=== PATIENT | male | born 1935 | race Caucasian/White ===

== ENCOUNTER → 2016-10-19 | Outpatient (CLI) | payer BC ==
[~2016-10-19] MED LIST: ACET-1138 PO; AMIO200T4 PO; AMIO200T7 PO; ASPI81TA28 PO; ATEN-173 PO; CEPH500C PO; CIPR1TAB11 PO; CMD5 PO; CYAN1LOZ2 PO; DILT-204 PO; DILT120C68 PO; DOXY100C76 PO; FERR1TAB13 PO; FLM4 PO; LEVO1TAB34 PO; LSN5 PO; LVQ250 PO; MAGN400T6 PO; METF-384 PO; MRLP17 PO; NIAC500T11 PO; NVLGIPEN SC; ROSU20TA PO; ROSU5TAB PO; RXC5 PO; SNK PO; VTMD1000 PO; WARF2.5T8 PO
[2016-10-19 12:35] LABS: THYROID STIMULATING HORMONE 4.63 uIu/ml (0.300-4.500)
== END | disposition home or self-care (01) ==
LOC: C.LAB 10:26
PROVIDERS: ATTEND Internal Medicine Cardiovascular Disease
DX: I48.92 Unspecified atrial flutter (principal); Z79.899 Other long term (current) drug therapy

== ENCOUNTER → 2016-11-26 | Outpatient (CLI) | payer BC ==
[~2016-11-26] MED LIST changes: -CEPH500C PO; +CRDCD240 PO; -DILT-204 PO; -LEVO1TAB34 PO
[2016-11-26 12:46] LABS: BASO % 0.6 %; BASO ABS # 0.04 K/uL (0-0.2); COMPLETE YES; EOS % 1.7 %; HEMATOCRIT 39.5 % (42-52); IG% 0.1 %; LYMPH % 23.6 %; LYMPH ABS # 1.64 K/uL (1.2-3.4); MEAN CELL VOLUME 85.1 fL (80-100); MEAN CORPUSCULAR HEMOGLOBIN 27.4 pg (25-34); MEAN CORPUSCULAR HGB CONC 32.2 g/dl (32-36); MEAN PLATELET VOLUME 10.7 fL (7.4-10.4); MONO % 9.3 %; NEUT % 64.7 %; PLATELET COUNT 242 K/uL (130-400); RED BLOOD COUNT 4.64 M/uL (4.7-6.1); WHITE BLOOD COUNT 6.96 K/uL (4.8-10.8)
[2016-11-26 12:58] LABS: ALT/SGPT 47 U/L (12-78); AST/SGOT 36 U/L (15-37); BLOOD UREA NITROGEN 16 mg/dl (7-18); CARBON DIOXIDE 25 mmol/L (21-32); CHLORIDE 105 mmol/L (98-107); CREATININE 0.98 mg/dl (0.60-1.40); GLUCOSE 105 mg/dl (70-99); POTASSIUM 4.4 mmol/L (3.5-5.1); SODIUM 140 mmol/L (136-145)
[2016-11-26 13:02] LABS: ALKALINE PHOSPHATASE 71 U/L (45-117); FERRITIN 17.4 ng/ml (8.0-388.0)
[2016-11-26 13:40] LABS: ESTIMATED AVERAGE GLUCOSE 148 mg/dl; HA1C FLAG Normal (Normal)
== END | disposition home or self-care (01) ==
LOC: C.LABPBG 10:28
PROVIDERS: ATTEND Nurse Practitioner Family
DX: I25.10 Atherosclerotic heart disease of native coronary artery without angina pectoris (principal); E78.5 Hyperlipidemia, unspecified; I48.92 Unspecified atrial flutter; R00.1 Bradycardia, unspecified; Z79.01 Long term (current) use of anticoagulants; Z79.899 Other long term (current) drug therapy; E11.9 Type 2 diabetes mellitus without complications; D64.9 Anemia, unspecified

== ENCOUNTER → 2016-12-14 | Outpatient (CLI) | payer BC ==
--- NOTE | 2016-12-14 14:55 | DIAGNOSTIC IMAGING REPORT ---
CT SCAN OF THE BRAIN WITHOUT IV CONTRAST CLINICAL HISTORY: Head injury. COMPARISON STUDY: No priors. TECHNIQUE: Unenhanced axial CT scan of the brain is performed from the vertex to the skull base. CT DOSE: 614.27 mGy.cm FINDINGS: Brain parenchyma: There are age-related involutional changes noting moderate confluent subcortical and periventricular microangiopathic change. There is no hemorrhage, mass effect, or evidence of acute territorial ischemia by CT criteria. Cardenas-white matter is preserved. No extra-axial fluid collection is seen. Ventricles, sulci, cisterns: Prominent secondary to involutional change. Intracranial vasculature: There is atherosclerotic calcification of the cavernous carotid and vertebral arteries. Calvarium: The skeletal structures are osteopenic. No depressed calvarial fracture is seen. Sinuses and mastoids: The visualized paranasal sinuses are clear. The mastoid air cells are well pneumatized. Orbits: The bony orbits are grossly intact. IMPRESSION: Senescent changes as above with no hemorrhage, mass effect, or evidence of acute territorial ischemia by CT criteria. Electronically signed by: Jigar Acuña M.D. 12/14/2016 2:54 PM Dictated Date/Time: 12/14/2016 2:52 PM
== END | disposition home or self-care (01) ==
LOC: C.CTS 14:40
PROVIDERS: ATTEND Nurse Practitioner Family
DX: S09.90XA Unspecified injury of head, initial encounter (principal); X58.XXXA Exposure to other specified factors, initial encounter; Z79.01 Long term (current) use of anticoagulants

== ENCOUNTER → 2017-02-21 | Outpatient (CLI) | payer BC ==
[~2017-02-21] MED LIST changes: +CEPH500C PO; +LEVO1TAB34 PO
--- NOTE | 2017-02-21 13:25 | DIAGNOSTIC IMAGING REPORT ---
RIGHT HIP UNILATERAL 2 VIEWS CLINICAL HISTORY: Right hip pain. COMPARISON: CT of the abdomen and pelvis May 31, 2016. FINDINGS: Near complete loss of the right hip joint space is noted. There is osteophytosis and sclerosis. Extensive vascular calcification is present. There is no fracture or suspicious lesion. IMPRESSION: 1. Marked osteoarthritis of the right hip. 2. No acute fracture. Electronically signed by: Sam Crowley M.D. 02/21/2017 1:23 PM Dictated Date/Time: 02/21/2017 1:22 PM
== END | disposition home or self-care (01) ==
LOC: C.RAD 13:10
PROVIDERS: ATTEND Nurse Practitioner Family
DX: M25.551 Pain in right hip (principal)

== ENCOUNTER 2017-03-17 05:59 | Inpatient (IN) | payer BC, OTHER ==
[2017-03-04 10:41] VITALS: BMI 25.0
--- NOTE | 2017-03-04 11:22 | PAT Medication Instructions ---
Service Date March 04, 2017. Current Home Medication List Amiodarone Hcl (Pacerone), 200 MG PO QAM Aspirin (Aspirin Ec), 81 MG PO QAM Atenolol (Tenormin), 12.5 MG PO QAM Cyanocobalamin (Vitamin B 12), 1,000 MCG PO QAM Diltiazem Hcl Ext Rel (Tiazac), 120 MG PO QPM Magnesium Oxide (Mag-Ox), 400 MG PO QPM Metformin Hcl (Glucophage), 1,000 MG PO BID Niacin (Niacin), 500 MG PO BID Rosuvastatin Calcium (Crestor), 10 MG PO QPM Warfarin Sod (Jantoven), 2.5 MG PO QPM Medication Instructions For Your Scheduled Surgery Warfarin Sod (Jantoven), 2.5 MG PO QPM (patient will check with building construction professor for instructions) - Hold the following medications 48 hours prior to surgery: Metformin Hcl (Glucophage), 1,000 MG PO BID - Hold the following medications day prior to and morning of surgery: Niacin (Niacin), 500 MG PO BID - Hold the following medications the morning of surgery: Cyanocobalamin (Vitamin B 12), 1,000 MCG PO QAM - Take the following medications the morning of surgery with a sip of water: Aspirin (Aspirin Ec), 81 MG PO QAM Atenolol (Tenormin), 12.5 MG PO QAM Amiodarone Hcl (Pacerone), 200 MG PO QAM - Take the following medications as scheduled the night before surgery: Rosuvastatin Calcium (Crestor), 10 MG PO QPM Magnesium Oxide (Mag-Ox), 400 MG PO QPM Diltiazem Hcl Ext Rel (Tiazac), 120 MG PO QPM If you have any questions please call us at [phone] or [phone] ( Martha) or [phone]
[2017-03-04 11:59] LABS: HEMATOCRIT 38.5 % (42-52); MEAN CELL VOLUME 86.5 fL (80-100); MEAN CORPUSCULAR HEMOGLOBIN 27.6 pg (25-34); MEAN CORPUSCULAR HGB CONC 31.9 g/dl (32-36); MEAN PLATELET VOLUME 10.1 fL (7.4-10.4); PLATELET COUNT 222 K/uL (130-400); RED BLOOD COUNT 4.45 M/uL (4.7-6.1); WHITE BLOOD COUNT 7.82 K/uL (4.8-10.8)
[2017-03-04 12:08] LABS: INR 1.9 (0.9-1.1); PARTIAL THROMBOPLASTIN RATIO 1.3; PROTHROMBIN TIME (PATIENT) 21.4 SECONDS (9.0-12.0)
--- NOTE | 2017-03-04 12:10 | DIAGNOSTIC IMAGING REPORT ---
CHEST PREADMISSION(PA/LAT) CLINICAL HISTORY: PAT preoperative evaluation COMPARISON STUDY: 06/20/2016 FINDINGS: Prior median sternotomy. No evidence for cardiac enlargement. Diaphragms smooth. Lungs are clear. IMPRESSION: No acute process. Electronically signed by: Rizwan Terrazas M.D. 03/04/2017 12:09 PM Dictated Date/Time: 03/04/2017 12:09 PM
[2017-03-04 12:19] LABS: BASO % 0.4 %; BASO ABS # 0.03 K/uL (0-0.2); COMPLETE YES; IG% 0.1 %; LYMPH % 20.3 %; LYMPH ABS # 1.59 K/uL (1.2-3.4); MONO % 7.7 %; NEUT % 70.5 %
[2017-03-04 12:31] LABS: URINE APPEARANCE CLEAR (CLEAR); URINE BILIRUBIN NEG (NEG); URINE COLOR YELLOW; URINE NITRITE NEG (NEG); URINE SPECIFIC GRAVITY 1.026 (1.000-1.030); UROBILINOGEN NEG (NEG)
[2017-03-04 12:39] LABS: ESTIMATED AVERAGE GLUCOSE 146 mg/dl; HA1C FLAG Normal (Normal)
[2017-03-04 12:45] LABS: MANUAL MICROSCOPIC REQUIRED? NO; REVIEW REQ? NO
[2017-03-04 13:09] LABS: BUN/CREATININE RATIO 25.6 (10-20); CALCIUM 8.9 mg/dl (8.5-10.1); CREATININE 0.88 mg/dl (0.60-1.40); POTASSIUM 4.4 mmol/L (3.5-5.1)
--- NOTE | 2017-03-16 16:16 | HISTORY & PHYSICAL EXAMINATION ---
DATE OF ADMISSION: 03/17/2017 CHIEF COMPLAINT: Right hip pain. HISTORY OF PRESENT ILLNESS: The patient is an 81-year-old gentleman with known osteoarthritis about his right hip. He had a previous successful left total hip arthroplasty, which has done well. He has ongoing pain and disability with his right hip. He has pain with prolonged weightbearing and standing activities. He has difficulty with any kneeling, bending, or squatting activities. Due to warfarin use, he is unable to take NSAIDs. He now desires to proceed with right total hip arthroplasty. PAST MEDICAL HISTORY: Coronary artery disease status post CABG x3, atrial flutter status post cardioversion, hyperlipidemia, type 2 diabetes, peripheral artery disease, and hypertension. PAST SURGICAL HISTORY: Left hip replacement as above, coronary artery bypass graft, and neck surgery. MEDICATIONS: Amiodarone HCL 200 mg daily, aspirin 81 mg daily, atenolol 25 mg half tablet daily, magnesium oxide 400 mg daily, metformin HCL 1000 mg twice daily with meals, niacin 500 mg 2 tablets daily, rosuvastatin calcium 20 mg half tablet daily, vitamin B12 at 1000 mcg daily, and warfarin sodium 5 mg daily or as directed. ALLERGIES: INCLUDE PENICILLIN, SULFA AND SHELLFISH. SOCIAL HISTORY AND REVIEW OF SYSTEMS: Noncontributory. PHYSICAL EXAMINATION: GENERAL: Well-nourished and well-developed elderly male, who appears his stated age. HEENT: Normocephalic and atraumatic. Extraocular movements intact. Oropharynx is pink and moist. NECK: Supple without adenopathy. LUNGS: Clear to auscultation bilaterally. HEART: Regular rate and rhythm. ABDOMEN: Soft, nontender, and nondistended. EXTREMITIES: The upper extremities are within normal limits. The right hip demonstrates limited range of motion. There is limitation of active and passive internal/external rotation with pain at end range. X-RAYS: X-rays were reviewed. He has a well-fixed and well-aligned total hip on the left. The right hip shows moderate to severe osteoarthritis with near complete loss of the joint space. There is evidence of osteophytes about the femoral head and acetabulum. ASSESSMENT: Right hip degenerative joint disease. PLAN: Risks versus benefits were discussed. Consent was obtained. The patient's primary care physician is Munir Andino. We will proceed with right total hip arthroplasty upon preoperative workup and medical clearance.
[~2017-03-17] VITALS: Ht 170.2 cm; Wt 73.7 kg
[2017-03-17] VITALS (12 sets, daily range): BP systolic 118–181; BP diastolic 62–78; PULSE 45–60; TEMP 36.4–36.8; O2SAT 95–100; Ht 170.2 cm; Wt 73.7 kg
[~2017-03-17 05:59] MED LIST changes: -ACET-1138 PO; -AMIO200T4 PO; -CEPH500C PO; -CIPR1TAB11 PO; -CMD5 PO; -CRDCD240 PO; -DOXY100C76 PO; -FERR1TAB13 PO; -FLM4 PO; -LEVO1TAB34 PO; -LSN5 PO; -LVQ250 PO; -MRLP17 PO; -NVLGIPEN SC; -ROSU5TAB PO; -RXC5 PO; -SNK PO; -VTMD1000 PO
[2017-03-17] MEDS ORDERED: LACTATED RINGER'S 1000ML IV SCH (06:00)
[2017-03-17] MEDS ORDERED: VANCOMYCIN INJ 1,150 MG in SODIUM CHLORIDE 0.9% 250ML 250 ML IV SCH (06:00)
[2017-03-17] MEDS ORDERED: FAMOTIDINE 20 MG TAB PO SCH (06:00)
[2017-03-17] MEDS ORDERED: GABAPENTIN 300 MG CAP PO SCH (06:00)
[2017-03-17] MEDS ORDERED: METOCLOPRAMIDE HCL 10 MG TAB PO SCH (06:00)
[2017-03-17] MEDS ORDERED: ROPIVACAINE 5MG/ML 30 ML 150 MG, BUPIVACAINE/EPINEPHR 0.5% MPF 30 ML, KETOROLAC TROMETH... INFIL SCH ×7 (06:00)
[2017-03-17] MEDS ORDERED: TRANEXAMIC ACID INJ 1,000 MG in SODIUM CHLORIDE 0.9% 100ML 100 ML IV SCH (06:00)
[2017-03-17] MEDS ORDERED: DEXAMETHASONE 4 MG TAB PO SCH (06:00)
[2017-03-17] MEDS ORDERED: LACTATED RINGER'S 1000ML 1,000 ML IV SCH (06:00)
[2017-03-17] MEDS ORDERED: ACETAMINOPHEN 500 MG TAB PO SCH (06:00)
[2017-03-17] MEDS ORDERED: LACTATED RINGER'S 1000ML 500 ML IV ONE (06:00)
[2017-03-17] MEDS ORDERED: BUPIVACAINE 0.5 % 5 MG/1 ML PF 10ML VIAL ONE (06:53)
[2017-03-17] MEDS ORDERED: FENTANYL CITRATE INJ 50 MCG/1 ML 2 ML VIAL ONE (07:19)
[2017-03-17] MEDS ORDERED: MIDAZOLAM HCL 1 MG/ML 2ML VIAL ONE (07:19)
[2017-03-17] MEDS ORDERED: BACITRACIN 50000 UNIT VIAL ONE (07:43)
[2017-03-17] MEDS ORDERED: POVIDONE-IODINE OP SOLN 30 ML BTL ONE (07:43)
[2017-03-17] MEDS ORDERED: ORTHO JOINT ANESTHETIC ONE (07:43)
--- NOTE | 2017-03-17 07:45 | History & Physical Bridge Note ---
H&P Re-Evaluation Bridge Note: I have examined the patient, reviewed the History & Physical and in the interval since the performance of the History & Physical I have noted the following changes of clinical significance: No changes noted
[2017-03-17 07:47] LABS: INR 1.2 (0.9-1.1); PARTIAL THROMBOPLASTIN RATIO 1.1; PROTHROMBIN TIME (PATIENT) 12.7 SECONDS (9.0-12.0)
[2017-03-17] MEDS ORDERED: KETOROLAC TROMETHAMINE 15 MG/ML VIAL IV. PRN (08:15)
[2017-03-17] MEDS ORDERED: ONDANSETRON INJ 2 MG/ML 2 ML VIAL IV PRN ×2 (08:15→09:30)
[2017-03-17] MEDS ORDERED: ATROPINE SULFATE 0.1 MG/ML 5ML SYR IV PRN (08:15)
[2017-03-17] MEDS ORDERED: EpHEDrine SULFATE INJ 50 MG/ML AMP IV PRN (08:15)
[2017-03-17] MEDS ORDERED: PHENYLEPHRINE 100MCG/ML 5ML SYR IV PRN (08:15)
[2017-03-17] MEDS ORDERED: HYDROmorphone INJ 2 MG/ML SYR/VIAL IV PRN (08:15)
[2017-03-17] MEDS ORDERED: EpHEDrine SULFATE 50MG/5ML SYR ONE (08:21)
[2017-03-17] MEDS ORDERED: PROPOFOL IV EMULSION 10 MG/ML 20 ML VIAL IV ONE (08:21)
--- NOTE | 2017-03-17 09:05 | [facility] Post Operative Brief Note ---
Immediate Operative Summary Operative Date Mar 17, 2017. Pre-Operative Diagnosis Right hip degenerative joint disease Post-Operative Diagnosis same Procedure(s) Performed Right Total Hip Arthroplasty; Uncemented Surgeon Dr. Hough Director Of Community Services Surgeon(s) Shade Tamez PA-C Estimated Blood Loss 100ML Findings severe OA Specimens a. right femoral head Complication(s) None Disposition Recovery Room / PACU
--- NOTE | 2017-03-17 09:21 | OPERATIVE REPORT ---
DATE OF OPERATION: 03/17/2017 PREOPERATIVE DIAGNOSIS: Osteoarthritis right hip. POSTOPERATIVE DIAGNOSIS: Osteoarthritis right hip. PROCEDURE: Right connective total hip arthroplasty. SURGEON: Dr. Hough. VENDING ATTENDANT: Shade Tamez PA-C. ANESTHESIA: Spinal. COMPLICATIONS: None. OPERATION AND FINDINGS: PROCEDURE: Following induction of adequate spinal anesthesia, the patient was placed in left lateral decubitus position and right Heber-Langenbeck incision was made. Subcutaneous tissue was sharply dissected. Electrocautery used for hemostasis. The fascia was incised throughout the length of the wound and a moss scissor placed beneath the short external rotators. The pyriformis was tagged with #1 Vicryl. The short external rotators were divided from the posterior aspect of the femur using electrocautery. These were swept posteriorly. A T-capsulotomy incision was made and the hip was dislocated using a combination of flexion, adduction, and internal rotation. Exposure of the femoral neck with old-style Hohmann and a blunt Hohmann was carried out and a femoral rasp was utilized as a guide for making the appropriate level femoral neck cut. This bone fragment was removed and reserved on the back table. Next, attention was turned to the acetabulum where bone hook was used to retract the femur while the offset retractors were placed anterior and posteriorly. A double-angled Hohmann was placed in superior and anterior position exposing the acetabulum nicely. Acetabular labrum as well as posterior capsule elements were removed using a long knife and a long pickup. Fovea centralis was cleared of all soft tissue. Sequential reamings were carried up to a size 56 and decision was made to proceed with impaction of a 56 trabecular metal cup. This was impacted and held using a single 35 mm bone screw. The acetabular liner was placed with 15 of elevated posterior wall in the superior and posterior position. Next, attention was turned to the femoral portion of the case where a Bovie and pickup was used to further clear short external rotators from their insertion on the femur. Box osteotome was used to gain access to the femoral canal and the T-handled rasp and a rattail rasp were used to further open and lateral the canal. Sequentially raspings were carried up to a size 4 which gave good fit and fill of the proximal femur. A trial reduction was carried out and size 4 offset femoral neck component was chosen as the size to be used. A -2.5 x 36 mm ceramic femoral head was impacted into position, +0 head was utilized. The trial reduction was stable in all degrees of rotation with no exyl-in-bltk impingement. The hip was dislocated. The trial components were removed and the final femoral stem, neck, and femoral head combination were assembled on the back table and impacted into position. Hip was relocated. Range of motion checked once again successful and the wound was irrigated. The pyriformis repaired to the greater trochanter using #1 Vicryl [id number]-ew-jrhim suture. A Hemovac drain was placed and the fascia was closed using #1 Vicryl, subcutaneous tissue was closed using 0 Dexon, and skin was closed with stephanie. Sterile dressing of Adaptic, 4 x 4's, ABDs, and foam tape was applied. The patient tolerated the procedure well. Recovery room stable. Due to the complex nature of the procedure, the entire surgery was performed with the operational assistance of Shade Tamez PA-C. The certified nursing assistant, under direct supervision, was involved in the actual performance of all aspects of the surgical procedure including hemostasis, tissue retraction and incision, instrument management, patient positioning, and wound closure. I attest to the content of the Intraoperative Record and any orders documented therein. Any exception s are noted below.
[2017-03-17] MEDS ORDERED: MoRPHine SULFATE 2 MG/ML CARP IV PRN (09:30)
[2017-03-17] MEDS ORDERED: TAMSULOSIN HCL 0.4 MG CAP PO PRN (09:30)
[2017-03-17] MEDS ORDERED: ZOLPIDEM TARTRATE 5 MG TAB PO PRN (09:30)
[2017-03-17] MEDS ORDERED: METOCLOPRAMIDE HCL INJ 5 MG/ML 2 ML VIAL IV PRN (09:30)
[2017-03-17] MEDS ORDERED: ALUMINUM/MAGNESIUM/SIMETH (MAALOX MAX) 30 ML UDC PO PRN (09:30)
[2017-03-17] MEDS ORDERED: MAGNESIUM HYDROXIDE SUSP 30 ML UDC PO PRN (09:30)
--- NOTE | 2017-03-17 10:01 | Anesthesiology Progress Note ---
Anesthesia Post Op Note Date & Time Mar 17, 2017 at 10:02 Vital Signs Pain Intensity: 0 Vital Signs Past 12 Hours Date Time Temp Pulse Resp B/P (MAP) Pulse Ox O2 Delivery O2 Flow Rate FiO2 03/17/17 10:00 37.1 03/17/17 09:53 48 18 96 03/17/17 09:53 48 18 03/17/17 09:52 145/67 03/17/17 09:48 48 17 100 03/17/17 09:48 48 17 03/17/17 09:47 146/130 03/17/17 09:43 47 15 100 03/17/17 09:43 47 15 03/17/17 09:42 138/66 03/17/17 09:40 47 17 03/17/17 09:40 47 17 100 03/17/17 09:36 141/68 03/17/17 09:35 49 20 99 03/17/17 09:35 50 20 03/17/17 09:30 51 21 03/17/17 09:30 51 21 100 03/17/17 09:27 124/62 03/17/17 09:25 36.7 55 19 124/62 100 Mask 10 03/17/17 06:34 36.4 46 18 181/78 99 Room Air Notes Mental Status: alert / awake / arousable, participated in evaluation Pt Amnestic to Procedure: Yes Nausea / Vomiting: adequately controlled Pain: adequately controlled Airway Patency, RR, SpO2: stable & adequate BP & HR: stable & adequate Hydration State: stable & adequate Anesthetic Complications: no major complications apparent
--- NOTE | 2017-03-17 10:17 | DIAGNOSTIC IMAGING REPORT ---
SINGLE VIEW PELVIS; SINGLE VIEW RIGHT HIP CLINICAL HISTORY: Postoperative examination. FINDINGS: An AP portable view of the hips and pelvis with a crosstable lateral portable view of the right hip are obtained. A bipolar right hip arthroplasty is in near-anatomic alignment. A single cortical lag screw transfixes the acetabular cup. No acute fracture is identified. There are expected postoperative changes overlying the right hip including skin clips, subcutaneous gas, a surgical drain, and soft tissue swelling. A left hip arthroplasty is also seen. There is advanced atherosclerotic calcification of the femoral arteries. IMPRESSION: Expected postoperative findings status post right hip arthroplasty. No acute fracture is seen. Electronically signed by: Jigar Acuña M.D. 03/17/2017 10:15 AM Dictated Date/Time: 03/17/2017 10:14 AM
[2017-03-17] MEDS ORDERED: MoRPHine SULFATE 10 MG/ML CARP/VIAL IV PRN (10:45)
[2017-03-17] MEDS ORDERED: MoRPHine SULFATE 4 MG/ML 1 ML CARP\\VIAL IV PRN (10:45)
[2017-03-17] MEDS: SODIUM CHLORIDE 0.9% 1000ML 1,000 ML IV SCH ×2 (11:12→18:49)
--- NOTE | 2017-03-17 11:35 | Medical Consult ---
Consultation Date of Consultation: Mar 17, 2017. Attending Physician: Anatoliy Hough M.D. Reason for Consultation: Post op management History of Present Illness Pt is a 81 yo male with hx of CAD and CABGx3 in , DM II, Afib, GERD who presents to [facility] for right ELLEN after failing conservative measures as an OP. Pt has had left ELLEN done in the past as well. Pt is consulted to medical services for post op management. Pt denies any chest pain, sob, palpitations, abd pain, F/C/N/V/D. Past Medical/Surgical History Medical Problems: (1) Atrial flutter with rapid ventricular response Status: Acute (2) Constipation Status: Acute Family History No pertinent family history Social History Smoking Status: Never Smoker Alcohol Use: none Drug Use: none Marital Status: Housing Status: lives with significant other Allergies Coded Allergies: Penicillins (Verified Allergy, Severe, GENERALIZED AND FACIAL SWELLING, 03/17/17) Sulfa Antibiotics (Verified Allergy, Severe, GENERALIZED AND FACIAL SWELLING, 03/17/17) Shellfish (Verified Allergy, Unknown, GENERALIZED AND FACIAL SWELLING, 03/17) Current Inpatient Medications Current Inpatient Medications Medications (Trade) Dose Ordered Sig/Sae Route Start Time Stop Time Status Last Admin Dose Admin Ondansetron HCl (Zofran Inj) 4 mg ONE PRN IV 03/17/17 08:15 03/17/17 13:15 Atropine Sulfate (Atropine Sulfate 0.1MG/Ml Inj) 0.5 mg Q1M PRN IV 03/17/17 08:15 03/17/17 13:15 Ephedrine Sulfate (EpHEDrine SULFATE INJ) 5 mg Q5M PRN IV 03/17/17 08:15 03/17/17 13:15 Ketorolac Tromethamine (Toradol Inj) 15 mg ONE PRN IV. 03/17/17 08:15 03/17/17 13:15 Hydromorphone HCl (Dilaudid Inj) 0.25 mg Q5M PRN IV 03/17/17 08:15 03/17/17 13:15 Phenylephrine HCl (Vickey-Synephrine 500MCG/5ML Syr) 100 mcg Q5M PRN IV 03/17/17 08:15 03/17/17 13:15 Sodium Chloride 1,000 ml @ 100 mls/hr Q10H IV 03/17/17 09:26 03/18/17 09:25 Vancomycin HCl 1100 mg/Sodium Chloride 272 ml @ 125 mls/hr Q12H IV 03/17/17 18:30 03/17/17 20:41 Ketorolac Tromethamine (Toradol Inj) 15 mg Q6H IV. 03/17/17 12:00 03/18/17 09:29 Oxycodone HCl (Roxicodone Immediate Rel Tab) 1 TABLET FOR PAIN RATING... Q4H PRN PO 03/17/17 09:30 03/31/17 09:29 Morphine Sulfate (MoRPHine SULFATE INJ) 2 mg Q2HWA PRN IV 03/17/17 09:30 03/31/17 09:29 Acetaminophen (Tylenol Tab) 1,000 mg Q8H PO 03/17/17 14:00 04/16/17 09:29 Pregabalin (Lyrica Cap) 75 mg BID PO 03/17/17 21:00 04/16/17 20:59 Magnesium Hydroxide (Milk Of Magnesia Susp) 30 ml Q6H PRN PO 03/17/17 09:30 04/16/17 09:29 Docusate Sodium (coLACE CAP) 100 mg BID PO 03/17/17 21:00 04/16/17 20:59 Diphenhydramine HCl (Benadryl Cap) 25 mg Q8H PRN PO 03/17/17 09:30 04/16/17 09:29 Al Hydrox/Mg Hydrox/Simethicone (Maalox Max Susp) 15 ml Q4H PRN PO 03/17/17 09:30 04/16/17 09:29 Zolpidem Tartrate (Ambien Tab) 5 mg HSZ PRN PO 03/17/17 09:30 04/16/17 09:29 Multivitamins (Multivitamin Tab) 1 tab QAM PO 03/18/17 09:00 04/17/17 08:59 Ondansetron HCl (Zofran Inj) 4 mg Q6H PRN IV 03/17/17 09:30 04/16/17 09:29 Metoclopramide HCl (Reglan Inj) 10 mg Q6H PRN IV 03/17/17 09:30 04/16/17 09:29 Ferrous Gluconate (Ferrous Gluconate Tab) 324 mg TIDM PO 03/17/17 12:30 04/16/17 12:29 Pantoprazole Sodium (Protonix Tab) 40 mg QAM PO 03/18/17 09:00 04/17/17 08:59 Tamsulosin HCl (Flomax Cap) 0.4 mg QAM PRN PO 03/17/17 09:30 04/16/17 09:29 Dexamethasone Sodium Phosphate 10 mg/Syringe 2.5 ml @ 1 mls/min TODAY@0730 ONCE IV 03/18/17 07:30 03/18/17 07:32 Amiodarone HCl (Cordarone Tab) 200 mg QAM PO 03/18/17 09:00 04/17/17 08:59 Aspirin (Ecotrin Tab) 81 mg QAM PO 03/18/17 09:00 04/17/17 08:59 Atenolol (Tenormin Tab) 12.5 mg QAM PO 03/18/17 09:00 04/17/17 08:59 Diltiazem HCl (TIAzac CAP) 120 mg QPM PO 03/17/17 21:00 04/16/17 20:59 Magnesium Oxide (Mag-Ox Tab) 400 mg QPM PO 03/17/17 21:00 04/16/17 20:59 Niacin (Niacin Tab) 500 mg BID PO 03/17/17 21:00 04/16/17 20:59 Rosuvastatin Calcium (Crestor Tab) 10 mg QPM PO 03/17/17 21:00 04/16/17 20:59 Warfarin Sodium (Coumadin Tab) 2.5 mg DAILY@1600 PO 03/17/17 21:00 04/16/17 20:59 Cyanocobalamin (Vitamin B-12 Tab) 1,000 mcg QAM PO 03/18/17 09:00 04/17/17 08:59 Morphine Sulfate (MoRPHine SULFATE INJ) 4 mg Q2HWA PRN IV 03/17/17 10:45 03/31/17 10:44 Morphine Sulfate (MoRPHine SULFATE INJ) 6 mg Q2HWA PRN IV 03/17/17 10:45 03/31/17 10:44 Review of Systems Constitutional: No fever, No chills, No sweats, No weight loss, No weakness ENT: No hearing loss, No unusual epistaxis, No nasal symptoms, No sore throat, No tinnitus Respiratory: No cough, No sputum, No wheezing, No shortness of breath, No dyspnea on exertion Cardiovascular: No chest pain, No orthopnea, No PND, No edema Abdomen: No pain, No nausea, No vomiting, No diarrhea Musculoskeletal: No joint pain, No muscle pain, No swelling, No calf pain Genitourinary - Male: No hematuria, No dysuria, No urinary frequency, No urinary urgency Neurologic: No memory loss, No paralysis, No weakness, No numbness/tingling, No vertigo Psychiatric: No depression symptoms, No anhedonism, No anxiety, No insomnia Hematologic / Lymphatic: No abnormal bleeding/bruising, No clotting problems Integumentary: No rash, No itch Allergic / Immunologic: No environmental allergies, No seasonal allergies Physical Exam Date Time Temp Pulse Resp B/P (MAP) Pulse Ox O2 Delivery O2 Flow Rate FiO2 03/17/17 10:59 48 16 145/62 (89) 99 Nasal Cannula 2.0 03/17/17 10:25 36.5 47 16 151/65 (93) 95 Nasal Cannula 2.0 03/17/17 10:25 95 Nasal Cannula 2.0 03/17/17 10:25 Nasal Cannula 2.0 03/17/17 10:12 142/59 03/17/17 10:10 48 16 03/17/17 10:10 48 16 95 03/17/17 10:09 48 19 96 03/17/17 10:09 48 19 148/61 03/17/17 10:04 49 19 03/17/17 10:04 49 19 93 03/17/17 10:00 37.1 03/17/17 09:59 48 15 03/17/17 09:59 47 15 95 03/17/17 09:57 144/68 03/17/17 09:54 49 14 96 03/17/17 09:54 48 14 03/17/17 09:53 48 18 96 03/17/17 09:53 48 18 03/17/17 09:52 145/67 03/17/17 09:48 48 17 100 03/17/17 09:48 48 17 03/17/17 09:47 146/130 03/17/17 09:43 47 15 100 03/17/17 09:43 47 15 03/17/17 09:42 138/66 03/17/17 09:40 47 17 03/17/17 09:40 47 17 100 03/17/17 09:36 141/68 03/17/17 09:35 49 20 99 03/17/17 09:35 50 20 03/17/17 09:30 51 21 03/17/17 09:30 51 21 100 03/17/17 09:27 124/62 03/17/17 09:25 36.7 55 19 124/62 100 Mask 10 03/17/17 06:34 36.4 46 18 181/78 99 Room Air General Appearance: WD/WN, no apparent distress Head: normocephalic, atraumatic Eyes: normal inspection, PERRL, EOMI Neck: supple, no adenopathy, thyroid normal Respiratory/Chest: chest non-tender, lungs clear, normal breath sounds, no respiratory distress Cardiovascular: regular rate, rhythm, no edema, no gallop, no JVD, no murmur Abdomen/GI: normal bowel sounds, non tender, soft, no organomegaly Back: normal inspection, no CVA tenderness, no muscle spasm, normal range of motion 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, no motor/sensory deficits, alert, normal mood/affect, oriented x 3 Skin: normal color, warm/dry, no rash Laboratory Results Last 24 Hours Test 03/17/17 06:49 03/17/17 07:00 03/17/17 09:54 Bedside Glucose 111 mg/dl 152 mg/dl Prothrombin Time 12.7 SECONDS Prothromb Time International Ratio 1.2 Activated Partial Thromboplast Time 28.5 SECONDS Partial Thromboplastin Ratio 1.1 Assessment & Plan Pt is a 81 yo male admitted POD# 0 for right ELLEN Right ELLEN - Pain control with morphine, PT/OT and dispo per primary team Will monitor for acute blood loss anemia with CBC CAD with CABG x 3 in '95 - Stable, Cont statin, crestor, ASA, hold BB due to low pulse Afib - Rate more bradycardic, hold atenolol at this time, cont amio and coumadin. Daily PT/INR DM II - Please utilize ISS while inpatient BPH - Cont flomax DVT ppx with coumadin
[2017-03-17] MEDS ORDERED: GLUCOSE 40% GEL 15 GM TUBE PO PRN (11:45)
[2017-03-17] MEDS ORDERED: GLUCAGON FOR INJ 1 MG VIAL SQ PRN (11:45)
[2017-03-17] MEDS ORDERED: DEXTROSE 50% 50 ML SYR IV PRN (11:45)
[2017-03-17] MEDS ORDERED: GLUCOSE 10 TABS/TUBE PO PRN (11:45)
[2017-03-17 12:03] LABS: HEMATOCRIT 34.3 % (42-52); MEAN CELL VOLUME 86.2 fL (80-100); MEAN CORPUSCULAR HEMOGLOBIN 27.4 pg (25-34); MEAN CORPUSCULAR HGB CONC 31.8 g/dl (32-36); MEAN PLATELET VOLUME 9.9 fL (7.4-10.4); PLATELET COUNT 202 K/uL (130-400); RED BLOOD COUNT 3.98 M/uL (4.7-6.1); WHITE BLOOD COUNT 8.85 K/uL (4.8-10.8)
[2017-03-17 12:25] LABS: BASO % 0.1 %; BASO ABS # 0.01 K/uL (0-0.2); COMPLETE YES; EOS % 0.1 %; IG% 0.2 %; LYMPH % 7.6 %; LYMPH ABS # 0.67 K/uL (1.2-3.4); MONO % 1.1 %; NEUT % 90.9 %
[2017-03-17 12:31] LABS: CALCIUM 8.3 mg/dl (8.5-10.1)
[2017-03-17] MEDS: FERROUS GLUCONATE 324 MG TAB PO SCH ×2 (12:39→18:20)
[2017-03-17 12:40] LABS: BUN/CREATININE RATIO 22.4 (10-20); CREATININE 0.87 mg/dl (0.60-1.40); POTASSIUM 4.1 mmol/L (3.5-5.1)
[2017-03-17] MEDS: KETOROLAC TROMETHAMINE 15 MG/ML VIAL IV. SCH ×3 (12:40→23:43)
[2017-03-17] MEDS: INSULIN ASPART 100 UNITS/ML 3 ML PEN SC SCH ×3 (13:30→21:41)
[2017-03-17] MEDS: ACETAMINOPHEN 500 MG TAB PO SCH ×2 (13:31→21:42)
[2017-03-17] MEDS ORDERED: VANCOMYCIN INJ 1,100 MG in SODIUM CHLORIDE 0.9% 250ML 250 ML IV SCH (18:30)
[2017-03-17] MEDS: MAGNESIUM OXIDE 400 MG TAB PO SCH ×2 (21:00→21:25)
[2017-03-17] MEDS ORDERED: DOCUSATE SODIUM 100 MG CAP PO SCH (21:00)
[2017-03-17] MEDS: OXYCODONE HCL IR 5 MG TAB (IMMEDIATE RELEASE) PO PRN (21:20)
[2017-03-17] MEDS: DOCUSATE SODIUM 100 MG CAP PO SCH (21:22)
[2017-03-17] MEDS: WARFARIN SOD 2.5 MG TAB PO SCH (21:24)
[2017-03-17] MEDS: ROSUVASTATIN CALCIUM 10 MG TAB PO SCH (21:24)
[2017-03-17] MEDS: NIACIN 500 MG TAB IMMEDIATE RELEASE PO SCH (21:26)
[2017-03-17] MEDS: DILTIAZEM HCL 120 MG EXT REL CAP PO SCH (21:36)
[2017-03-17] MEDS: PREGABALIN 75 MG CAP PO SCH (21:36)
[2017-03-18] VITALS (7 sets, daily range): BP systolic 116–166; BP diastolic 56–79; PULSE 51–69; TEMP 36.5–37; O2SAT 92–97
[2017-03-18] MEDS: SODIUM CHLORIDE 0.9% 1000ML 1,000 ML IV SCH (05:34)
[2017-03-18] MEDS: KETOROLAC TROMETHAMINE 15 MG/ML VIAL IV. SCH (05:36)
[2017-03-18] MEDS: ACETAMINOPHEN 500 MG TAB PO SCH ×3 (05:37→22:03)
[2017-03-18 06:26] LABS: HEMATOCRIT 32.7 % (42-52); MEAN CELL VOLUME 86.1 fL (80-100); MEAN CORPUSCULAR HEMOGLOBIN 28.7 pg (25-34); MEAN CORPUSCULAR HGB CONC 33.3 g/dl (32-36); MEAN PLATELET VOLUME 10.7 fL (7.4-10.4); PLATELET COUNT 203 K/uL (130-400); WHITE BLOOD COUNT 15.61 K/uL (4.8-10.8)
[2017-03-18 06:39] LABS: INR 1.1 (0.9-1.1)
[2017-03-18 07:01] LABS: BUN/CREATININE RATIO 17.8 (10-20); CALCIUM 7.9 mg/dl (8.5-10.1); CREATININE 0.99 mg/dl (0.60-1.40)
[2017-03-18 07:15] LABS: COMPLETE YES; ECHINOCYTES 1+; IG% 0.3 %; LYMPH % 6.3 %; LYMPH ABS # 0.99 K/uL (1.2-3.4); MONO % 10.1 %; NEUT % 83.3 %
[2017-03-18] MEDS ORDERED: DEXAMETHASONE INJ 10 MG in SYRINGE 0 ML IV ONE (07:30)
--- NOTE | 2017-03-18 07:49 | Orthopedic Progress Note ---
Orthopedic Progress Note Date of Service Mar 18, 2017. Subjective Post OP Day: 1 Reports: feeling well Objective N/V intact, dressing C/D/I (Hemovac in place), toes mobile Date Time Temp Pulse Resp B/P (MAP) Pulse Ox O2 Delivery O2 Flow Rate FiO2 03/18/17 07:40 36.6 58 18 146/74 (98) 92 Room Air 03/18/17 03:58 37.0 67 16 139/79 (99) 93 Room Air 03/17/17 23:40 Room Air 03/17/17 22:53 36.8 55 20 133/66 (88) 97 Room Air 03/17/17 22:13 137/68 (91) 03/17/17 21:20 60 168/76 (106) 96 Room Air 03/17/17 20:30 36.5 58 16 149/68 (95) 97 Room Air 03/17/17 16:30 Room Air 03/17/17 16:30 96 Room Air 03/17/17 15:40 36.5 49 15 127/63 (84) 98 Nasal Cannula 2.0 03/17/17 13:24 36.5 48 16 118/63 (81) 98 Nasal Cannula 2.0 03/17/17 12:25 47 16 132/63 (86) 100 Nasal Cannula 2.0 03/17/17 11:25 45 16 134/62 (86) 100 Nasal Cannula 2.0 03/17/17 10:59 48 16 145/62 (89) 99 Nasal Cannula 2.0 03/17/17 10:25 36.5 47 16 151/65 (93) 95 Nasal Cannula 2.0 03/17/17 10:25 95 Nasal Cannula 2.0 03/17/17 10:25 Nasal Cannula 2.0 03/17/17 10:12 142/59 03/17/17 10:10 48 16 03/17/17 10:10 48 16 95 03/17/17 10:09 48 19 96 03/17/17 10:09 48 19 148/61 03/17/17 10:04 49 19 03/17/17 10:04 49 19 93 03/17/17 10:00 37.1 03/17/17 09:59 48 15 03/17/17 09:59 47 15 95 03/17/17 09:57 144/68 03/17/17 09:54 49 14 96 03/17/17 09:54 48 14 03/17/17 09:53 48 18 96 03/17/17 09:53 48 18 03/17/17 09:52 145/67 03/17/17 09:48 48 17 100 03/17/17 09:48 48 17 03/17/17 09:47 146/130 03/17/17 09:43 47 15 100 03/17/17 09:43 47 15 03/17/17 09:42 138/66 03/17/17 09:40 47 17 03/17/17 09:40 47 17 100 03/17/17 09:36 141/68 03/17/17 09:35 49 20 99 03/17/17 09:35 50 20 03/17/17 09:30 51 21 03/17/17 09:30 51 21 100 03/17/17 09:27 124/62 03/17/17 09:25 36.7 55 19 124/62 100 Mask 10 Laboratory Results 24 Hours: Test 03/17/17 11:51 03/18/17 05:55 White Blood Count 8.85 K/uL 15.61 K/uL Red Blood Count 3.98 M/uL 3.80 M/uL Hemoglobin 10.9 g/dL 10.9 g/dL Hematocrit 34.3 % 32.7 % Mean Corpuscular Volume 86.2 fL 86.1 fL Mean Corpuscular Hemoglobin 27.4 pg 28.7 pg Mean Corpuscular Hemoglobin Concent 31.8 g/dl 33.3 g/dl Platelet Count 202 K/uL 203 K/uL Mean Platelet Volume 9.9 fL 10.7 fL Neutrophils (%) (Auto) 90.9 % 83.3 % Lymphocytes (%) (Auto) 7.6 % 6.3 % Monocytes (%) (Auto) 1.1 % 10.1 % Eosinophils (%) (Auto) 0.1 % 0.0 % Basophils (%) (Auto) 0.1 % 0.0 % Neutrophils # (Auto) 8.04 K/uL 13.00 K/uL Lymphocytes # (Auto) 0.67 K/uL 0.99 K/uL Monocytes # (Auto) 0.10 K/uL 1.57 K/uL Eosinophils # (Auto) 0.01 K/uL 0.00 K/uL Basophils # (Auto) 0.01 K/uL 0.00 K/uL Prothromb Time International Ratio 1.1 Prothrombin Time 12.0 SECONDS Assessment & Plan Assessment: 81 yo male stable POD #1 s/p right ELLEN Plan: 1. Med management 2. DVT prophylaxis- resume normal Coumadin use, TEDs, SCDs 3. PT/OT 4. D/C planning- home w/ HH
--- NOTE | 2017-03-18 07:52 | Discharge Instructions ---
Discharge Instructions Date of Service Mar 18, 2017. Admission Reason for Admission: Right Hip Osteoarthritis Discharge Discharge Diagnosis / Problem: Right hip arthritis Discharge Goals Goal(s): Decrease discomfort, Improve function Activity Recommendations Activity Limitations: as noted below Weightbearing Status: Right weightbearing (as tolerated) . Instructions / Follow-Up Instructions / Follow-Up ACTIVITY RECOMMENDATIONS: SELF CARE INSTRUCTIONS AFTER TOTAL HIP REPLACEMENT Until the incision and soft tissues around your hip have healed, there is a possibility that the hip prosthesis could dislocate. A. Observe the following precautions to prevent dislocation: 1. Don't bend your hip greater than 90 degrees. 2. Avoid crossing your legs or ankles while standing or lying. 3. Sit with your feet placed 6 inches apart. 4. When sitting, keep your knees below your hips. Sit on a firm surface, avoid deep, soft chairs and couches. Use an elevated toilet seat in the bathroom. 5. Don't bend over at the waist. Use a long handled shoehorn and a sock aid to help you put on your shoes and socks. A financial analysis manager can help you pickle solution maker objects that are too high or too low to reach. 6. Keep car riding to a minimum for at least one month after surgery. B. Your balance may be shaky for a while. Use crutches or a walker until directed by your doctor. C. Use hand rails when walking on stairs. D. Wear low heeled shoes with non-slip soles. E. Be sure that your floors are free of things that could trip you - throw rugs , electrical cords, small objects. Avoid wet and waxed floors, especially with crutches and canes. F. Try to walk several times a day with rest periods between. G. Continue with all the exercises taught to you in the hospital. Again, make walking a part of your daily routine. SPECIAL CARE INSTRUCTIONS: VERY IMPORTANT TO READ AND REVIEW A. You may still be at risk for phlebitis and blood clots. 1. Wear surgical stockings (GABRIELLE hose) for 2 weeks after surgery to improve circulation and reduce swelling. 2. Take Aspirin 81mg twice daily for 4 weeks or as directed by your doctor. This is your blood thinner. 3. High risk patients may be prescribed a stronger blood thinner if necessary. 4. If you are on Coumadin normally, your family doctor/public service officer should monitor your blood work. Expect a phone call the day of or the day after bloodwork is drawn to adjust your dosage. B. You must take antibiotics before having dental work, bladder, bowel and other surgery. Your doctor will provide you with a permanent card to carry describing precautions. C. Call [facility] if you have a fever, redness or swelling around the incision, cloudy drainage from incision, or sudden increase in pain in your hip, not relieved by your regular pain medication. D. Please call the office at if you have any concerns or questions about your operation or recovery. * YOU MAY SHOWER, NO TUB BATHS UNTIL CLEARED BY YOUR DOCTOR. * WEAR GABRIELLE HOSE 20 HOURS PER DAY FOR 2 WEEKS. * YOU SHOULD USE A WALKER OR CRUTCHES FOR 2-4 WEEKS. THIS WILL HELP PREVENT STRAIN ON YOUR HIP MUSCLE AND ALLOW IT TO HEAL PROPERLY. YOU MAY WEAN TO A CANE TOLERATED. * MOST PATIENTS WILL HAVE HOME NURSING FOR THERAPY. IF YOU DECIDE TO DO OUTPATIENT PHYSICAL THERAPY, PLEASE SCHEDULE THIS 3 TIMES PER WEEK. Silverlon- This is a large adhesive bandage that contains silver ions. This helps your incision heal by fighting off bacteria and protecting it from the outside environment. You are permitted to shower with this dressing. This will remain on your incision for 7 days and then should be removed. Some visible blood or drainage through the dressing window is normal. If there is significant drainage or leaking noted before the 7 days notify your doctor's office immediately. Once removed, keep incision clean and dry. If there is any drainage or redness noted, please call your surgeon. FOLLOW UP VISIT: If appointment is not already scheduled: Please call [facility] to make a follow-up appointment for 2 weeks after your surgery at . Current Hospital Diet Patient's current hospital diet: Diabetes Type 2 Diet Discharge Diet Recommended Diet: Diabetes Type 2 Diet Procedures Procedures Performed: Right Total Hip Arthroplasty; Uncemented Pending Studies Studies pending at discharge: no Laboratory Results Hemoglobin A1c Test 03/04/17 11:37 Range/Units Estimated Average Glucose 146 mg/dl Hemoglobin A1c 6.7 H 4.5-5.6 % Medical Emergencies . Who to Call and When: Medical Emergencies: If at any time you feel your situation is an emergency, please call 911 immediately. . Non-Emergent Contact Non-Emergency issues call your: Surgeon Call Non-Emergent contact if: temperature is above 101.5, your pain is not controlled, wound has increased drainage, wound has increased redness . "Provider Documentation" section prepared by Shade Tamez PA-C. . VTE Core Measure Inpt VTE Proph given/why not?: Warfarin (Coumadin), T.E.D. Stockings, SCD's [place] Drug Monitoring Program Search Results: patient reviewed within database, no issues identified
--- NOTE | 2017-03-18 08:09 | Anesthesiology Progress Note ---
Anesthesia Post Op Note Date & Time Mar 18, 2017 at 08:08 Vital Signs Pain Intensity: 0.0 Vital Signs Past 12 Hours Date Time Temp Pulse Resp B/P (MAP) Pulse Ox O2 Delivery O2 Flow Rate FiO2 03/18/17 07:40 36.6 58 18 146/74 (98) 92 Room Air 03/18/17 07:10 Room Air 03/18/17 03:58 37.0 67 16 139/79 (99) 93 Room Air 03/17/17 23:40 Room Air 03/17/17 22:53 36.8 55 20 133/66 (88) 97 Room Air 03/17/17 22:13 137/68 (91) 03/17/17 21:20 60 168/76 (106) 96 Room Air 03/17/17 20:30 36.5 58 16 149/68 (95) 97 Room Air Notes Mental Status: alert / awake / arousable, participated in evaluation Pt Amnestic to Procedure: Yes Nausea / Vomiting: adequately controlled Pain: adequately controlled Airway Patency, RR, SpO2: stable & adequate BP & HR: stable & adequate Hydration State: stable & adequate Neuraxial Anesthesia: sensory block resolved Anesthetic Complications: no major complications apparent
[2017-03-18] MEDS: FERROUS GLUCONATE 324 MG TAB PO SCH ×3 (08:30→18:40)
[2017-03-18] MEDS: PANTOprazole SOD 40 MG TAB PO SCH (08:38)
[2017-03-18] MEDS: NIACIN 500 MG TAB IMMEDIATE RELEASE PO SCH ×2 (08:38→21:28)
[2017-03-18] MEDS: CYANOCOBALAMIN 500 MCG TAB (VIT B-12) PO SCH (08:39)
[2017-03-18] MEDS: ASPIRIN 81 MG ECTAB PO SCH (08:39)
[2017-03-18] MEDS: AMIODARONE 200 MG TAB PO SCH (08:39)
[2017-03-18] MEDS: PREGABALIN 75 MG CAP PO SCH ×2 (08:40→21:28)
[2017-03-18] MEDS: DOCUSATE SODIUM 100 MG CAP PO SCH ×2 (08:42→21:28)
[2017-03-18] MEDS: MULTIVITAMIN TAB PO SCH (08:43)
[2017-03-18] MEDS: INSULIN ASPART 100 UNITS/ML 3 ML PEN SC SCH ×4 (08:47→21:38)
[2017-03-18] MEDS: CHOLECALCIFEROL 1000 INTER.UNIT TAB PO SCH (09:58)
--- NOTE | 2017-03-18 11:09 | Hospitalist Progress Note ---
Hospitalist Progress Note Date of Service Mar 18, 2017. (Mago Gaston ., PA-C) Subjective Pt evaluation today including: conversation w/ patient, physical exam, chart review, lab review, review of studies, review of inpatient medication list Voiding: voiding difficulty Patient states he is feeling well. He is eating and drinking OK. +Flatus. No BM postop- last BM on 03/15 per patient. Hip pain is well-controlled. He worked with physical therapy this AM- did well, no significant complications. Patient admits to difficulty with voiding- needed to be straight cath this AM- continue to monitor, continue Flomax. Denies urinary symptoms prior to procedure; UA negative on 03/04. Patient denies any fever, chills, sweats, lightheadedness, dizziness, vision changes, CP, palpitations, edema, SOB, wheezing, cough, abdominal pain, nausea, vomiting, diarrhea, melena, numbness/tingling, weakness , anxiety/depression, active bleeding, or new skin discoloration/changes. (Mago Gaston ., PA-C) Medications Current Inpatient Medications Medications (Trade) Dose Ordered Sig/Sae Route Start Time Stop Time Status Last Admin Dose Admin Oxycodone HCl (Roxicodone Immediate Rel Tab) 1 TABLET FOR PAIN RATING... Q4H PRN PO 03/17/17 09:30 03/31/17 09:29 03/17/17 21:20 5 MG Morphine Sulfate (MoRPHine SULFATE INJ) 2 mg Q2HWA PRN IV 03/17/17 09:30 03/31/17 09:29 Acetaminophen (Tylenol Tab) 1,000 mg Q8H PO 03/17/17 14:00 04/16/17 09:29 03/18/17 05:37 1,000 MG Pregabalin (Lyrica Cap) 75 mg BID PO 03/17/17 21:00 04/16/17 20:59 03/17/17 21:36 75 MG Magnesium Hydroxide (Milk Of Magnesia Susp) 30 ml Q6H PRN PO 03/17/17 09:30 04/16/17 09:29 Diphenhydramine HCl (Benadryl Cap) 25 mg Q8H PRN PO 03/17/17 09:30 04/16/17 09:29 Al Hydrox/Mg Hydrox/Simethicone (Maalox Max Susp) 15 ml Q4H PRN PO 03/17/17 09:30 04/16/17 09:29 Zolpidem Tartrate (Ambien Tab) 5 mg HSZ PRN PO 03/17/17 09:30 04/16/17 09:29 Multivitamins (Multivitamin Tab) 1 tab QAM PO 03/18/17 09:00 04/17/17 08:59 Ondansetron HCl (Zofran Inj) 4 mg Q6H PRN IV 03/17/17 09:30 04/16/17 09:29 Metoclopramide HCl (Reglan Inj) 10 mg Q6H PRN IV 03/17/17 09:30 04/16/17 09:29 Ferrous Gluconate (Ferrous Gluconate Tab) 324 mg TIDM PO 03/17/17 12:30 04/16/17 12:29 03/17/17 18:20 324 MG Pantoprazole Sodium (Protonix Tab) 40 mg QAM PO 03/18/17 09:00 04/17/17 08:59 03/18/17 08:38 40 MG Tamsulosin HCl (Flomax Cap) 0.4 mg QAM PRN PO 03/17/17 09:30 04/16/17 09:29 Amiodarone HCl (Cordarone Tab) 200 mg QAM PO 03/18/17 09:00 04/17/17 08:59 03/18/17 08:39 200 MG Aspirin (Ecotrin Tab) 81 mg QAM PO 03/18/17 09:00 04/17/17 08:59 03/18/17 08:39 81 MG Diltiazem HCl (TIAzac CAP) 120 mg QPM PO 03/17/17 21:00 04/16/17 20:59 03/17/17 21:36 120 MG Magnesium Oxide (Mag-Ox Tab) 400 mg QPM PO 03/17/17 21:00 04/16/17 20:59 Niacin (Niacin Tab) 500 mg BID PO 03/17/17 21:00 04/16/17 20:59 03/18/17 08:38 500 MG Rosuvastatin Calcium (Crestor Tab) 10 mg QPM PO 03/17/17 21:00 04/16/17 20:59 03/17/17 21:24 10 MG Warfarin Sodium (Coumadin Tab) 2.5 mg DAILY@1600 PO 03/17/17 21:00 04/16/17 20:59 03/17/17 21:24 2.5 MG Cyanocobalamin (Vitamin B-12 Tab) 1,000 mcg QAM PO 03/18/17 09:00 04/17/17 08:59 03/18/17 08:39 1,000 MCG Morphine Sulfate (MoRPHine SULFATE INJ) 4 mg Q2HWA PRN IV 03/17/17 10:45 03/31/17 10:44 Morphine Sulfate (MoRPHine SULFATE INJ) 6 mg Q2HWA PRN IV 03/17/17 10:45 03/31/17 10:44 Docusate Sodium (coLACE CAP) 100 mg BID PO 03/17/17 21:00 04/16/17 20:59 03/17/17 21:22 100 MG Insulin Aspart (novoLOG ASPART) SLIDING SCALE If C... ACHS SC 03/17/17 12:00 04/16/17 11:59 03/18/17 08:47 2 UNITS Glucose (Glucose 40% Gel) 15-30 GRAMS 15 GRAMS... UD PRN PO 03/17/17 11:45 04/16/17 11:44 Glucose (Glucose Chew Tab) 4-8 Tablets 4 Tabl... UD PRN PO 03/17/17 11:45 04/16/17 11:44 Dextrose (Dextrose 50% 50ML Syringe) 25-50ML OF 50% DW IV FOR... UD PRN IV 03/17/17 11:45 04/16/17 11:44 Glucagon (Glucagon Inj) 1 mg UD PRN SQ 03/17/17 11:45 04/16/17 11:44 Cholecalciferol (Vitamin D Tab) 2,000 inter.unit QAM PO 03/18/17 09:00 04/17/17 08:59 03/18/17 09:58 2,000 INTER.UNIT (Mago Gaston, STEPHANIE) Objective Vital Signs Date Time Temp Pulse Resp B/P (MAP) Pulse Ox O2 Delivery O2 Flow Rate FiO2 03/18/17 09:00 65 96 03/18/17 07:40 36.6 58 18 146/74 (98) 92 Room Air 03/18/17 07:10 Room Air 03/18/17 03:58 37.0 67 16 139/79 (99) 93 Room Air 03/17/17 23:40 Room Air 03/17/17 22:53 36.8 55 20 133/66 (88) 97 Room Air 03/17/17 22:13 137/68 (91) 03/17/17 21:20 60 168/76 (106) 96 Room Air 03/17/17 20:30 36.5 58 16 149/68 (95) 97 Room Air 03/17/17 16:30 Room Air 03/17/17 16:30 96 Room Air 03/17/17 15:40 36.5 49 15 127/63 (84) 98 Nasal Cannula 2.0 03/17/17 13:24 36.5 48 16 118/63 (81) 98 Nasal Cannula 2.0 03/17/17 12:25 47 16 132/63 (86) 100 Nasal Cannula 2.0 03/17/17 11:25 45 16 134/62 (86) 100 Nasal Cannula 2.0 03/17/17 10:59 48 16 145/62 (89) 99 Nasal Cannula 2.0 (Mago Gaston ., PA-C) Physical Exam General Appearance: no apparent distress Eyes: normal inspection, PERRL ENT: hearing grossly normal Neck: supple Respiratory/Chest: lungs clear, no respiratory distress, no accessory muscle use Cardiovascular: regular rate, rhythm, + systolic murmur Abdomen: normal bowel sounds, non tender, soft Extremities: no pedal edema, no calf tenderness Neurologic/Psychiatric: alert, normal mood/affect, oriented x 3 Skin: normal color, warm/dry, no rash (Mago Gaston ., PA-C) Laboratory Results Last 24 Hours Test 03/17/17 11:51 03/17/17 12:14 03/17/17 18:17 03/17/17 20:33 White Blood Count 8.85 K/uL Red Blood Count 3.98 M/uL Hemoglobin 10.9 g/dL Hematocrit 34.3 % Mean Corpuscular Volume 86.2 fL Mean Corpuscular Hemoglobin 27.4 pg Mean Corpuscular Hemoglobin Concent 31.8 g/dl Platelet Count 202 K/uL Mean Platelet Volume 9.9 fL Neutrophils (%) (Auto) 90.9 % Lymphocytes (%) (Auto) 7.6 % Monocytes (%) (Auto) 1.1 % Eosinophils (%) (Auto) 0.1 % Basophils (%) (Auto) 0.1 % Neutrophils # (Auto) 8.04 K/uL Lymphocytes # (Auto) 0.67 K/uL Monocytes # (Auto) 0.10 K/uL Eosinophils # (Auto) 0.01 K/uL Basophils # (Auto) 0.01 K/uL RDW Standard Deviation 48.9 fL RDW Coefficient of Variation 15.5 % Immature Granulocyte % (Auto) 0.2 % Immature Granulocyte # (Auto) 0.02 K/uL Sodium Level 142 mmol/L Potassium Level 4.1 mmol/L Chloride Level 107 mmol/L Carbon Dioxide Level 26 mmol/L Anion Gap 9.0 mmol/L Blood Urea Nitrogen 20 mg/dl Creatinine 0.87 mg/dl Est Creatinine Clear Calc Drug Dose 61.2 ml/min Estimated GFR () 93.2 Estimated GFR (Non- 80.4 BUN/Creatinine Ratio 22.4 Random Glucose 136 mg/dl Calcium Level 8.3 mg/dl Bedside Glucose 127 mg/dl 169 mg/dl 210 mg/dl Test 03/18/17 05:55 03/18/17 08:06 03/18/17 10:06 White Blood Count 15.61 K/uL Red Blood Count 3.80 M/uL Hemoglobin 10.9 g/dL Hematocrit 32.7 % Mean Corpuscular Volume 86.1 fL Mean Corpuscular Hemoglobin 28.7 pg Mean Corpuscular Hemoglobin Concent 33.3 g/dl Platelet Count 203 K/uL Mean Platelet Volume 10.7 fL Neutrophils (%) (Auto) 83.3 % Lymphocytes (%) (Auto) 6.3 % Monocytes (%) (Auto) 10.1 % Eosinophils (%) (Auto) 0.0 % Basophils (%) (Auto) 0.0 % Neutrophils # (Auto) 13.00 K/uL Lymphocytes # (Auto) 0.99 K/uL Monocytes # (Auto) 1.57 K/uL Eosinophils # (Auto) 0.00 K/uL Basophils # (Auto) 0.00 K/uL RDW Standard Deviation 48.5 fL RDW Coefficient of Variation 15.5 % Immature Granulocyte % (Auto) 0.3 % Immature Granulocyte # (Auto) 0.05 K/uL Echinocytes 1+ Prothrombin Time 12.0 SECONDS Prothromb Time International Ratio 1.1 Sodium Level 142 mmol/L Potassium Level 4.0 mmol/L Chloride Level 108 mmol/L Carbon Dioxide Level 23 mmol/L Anion Gap 11.0 mmol/L Blood Urea Nitrogen 18 mg/dl Creatinine 0.99 mg/dl Est Creatinine Clear Calc Drug Dose 53.8 ml/min Estimated GFR () 81.9 Estimated GFR (Non- 70.6 BUN/Creatinine Ratio 17.8 Random Glucose 148 mg/dl Calcium Level 7.9 mg/dl Bedside Glucose 147 mg/dl (Mago Gaston ., PA-C) Assessment and Plan Patient is an 81 y/o male, with PMHx of CAD s/p CABG x3, a.fib, and T2DM, admitted right ELLEN done by Dr. Hough on 03/17 s/p right ELLEN: - Pain management, DVT prophylaxis, and PT/OT as per primary team - Check Vitamin D level- begin supplement - Follow CBC CAD with CABG x 3 in - STABLE/a.fib- rate controlled: - Continue Crestor 20 mg daily, ASA 81 mg daily, and Mag-Ox 400 mg daily - Diltiazem 120 mg HS, Amiodarone 200 mg QAM, and Coumadin 2.5 mg HS - Atenolol 12.5 mg daily held due to bradycardia - Follow PT/INR T2DM- controlled: - BSG ACHS w/ sliding insulin scale - hA1C on 03/04/17= 6.7% Urinary retention postop- no h/o BPH: - Flomax 0.4 mg ordered PRN if unable to void- begin daily if unable to void x2 per primary team- will order daily Flomax dosage - Continue bladder scan and straight cath PRN - Continue to monitor- if symptoms do not resolve, will further workup- note: negative UA on 03/04 - Follow PRP GI Prophylaxis: Protonix, Maalox PRN, IV Zofran PRN, Colace and/or Milk of Mag PRN DVT prophylaxis: Coumadin as per primary team, GABRIELLE and SCDs Code Status: LEVEL I, FULL Dispo: Discharge as per primary team (Mago Gaston, PA-C) i personally examined pt and verified all pride points w Austin Gaston PAC notes he's acting odd and somewhat confused. at baseline she notes she has seen very mild forgetfullness recently also discussed vitamin D vitals noted nad, somewhat impulsive and tangential in conversation, breathing unlabored as above, also D deficiency - replace, repeat levels ~12wks, then again in winter delirium - ?mild underlying dementia. supportive care, outpt follow up and recommend serial mental status exam, establish ?if baseline dementia (Mason Valdes D.O.)
[2017-03-18] MEDS: TAMSULOSIN HCL 0.4 MG CAP PO SCH (12:32)
[2017-03-18] MEDS ORDERED: ERGOCALCIFEROL 50,000 INTER.UNIT CAP PO ONE (16:00)
[2017-03-18] MEDS: WARFARIN SOD 2.5 MG TAB PO SCH (16:28)
[2017-03-18] MEDS: ROSUVASTATIN CALCIUM 10 MG TAB PO SCH (21:28)
[2017-03-18] MEDS: DILTIAZEM HCL 120 MG EXT REL CAP PO SCH (21:28)
[2017-03-18] MEDS: MAGNESIUM OXIDE 400 MG TAB PO SCH (21:28)
[2017-03-19] MEDS: ACETAMINOPHEN 500 MG TAB PO SCH ×3 (05:37→21:19)
[2017-03-19 07:13] VITALS: BP 127/57; PULSE 63; TEMP 36.8; O2SAT 93
[2017-03-19 07:32] LABS: HEMATOCRIT 31.8 % (42-52); MEAN CELL VOLUME 85.3 fL (80-100); MEAN CORPUSCULAR HEMOGLOBIN 27.6 pg (25-34); MEAN CORPUSCULAR HGB CONC 32.4 g/dl (32-36); MEAN PLATELET VOLUME 10.6 fL (7.4-10.4); PLATELET COUNT 207 K/uL (130-400); RED BLOOD COUNT 3.73 M/uL (4.7-6.1); WHITE BLOOD COUNT 13.73 K/uL (4.8-10.8)
[2017-03-19 07:37] LABS: INR 1.2 (0.9-1.1); PROTHROMBIN TIME (PATIENT) 12.7 SECONDS (9.0-12.0)
[2017-03-19 08:11] LABS: BUN/CREATININE RATIO 20.4 (10-20); CALCIUM 8.1 mg/dl (8.5-10.1); CREATININE 0.83 mg/dl (0.60-1.40)
[2017-03-19] MEDS: FERROUS GLUCONATE 324 MG TAB PO SCH ×3 (08:30→18:38)
[2017-03-19] MEDS: PREGABALIN 75 MG CAP PO SCH ×2 (08:42→21:00)
[2017-03-19] MEDS: MULTIVITAMIN TAB PO SCH (08:46)
[2017-03-19] MEDS: NIACIN 500 MG TAB IMMEDIATE RELEASE PO SCH ×2 (08:46→21:19)
[2017-03-19] MEDS: DOCUSATE SODIUM 100 MG CAP PO SCH ×2 (08:46→21:16)
[2017-03-19] MEDS: ERGOCALCIFEROL 50,000 INTER.UNIT CAP PO SCH (08:46)
[2017-03-19] MEDS: CHOLECALCIFEROL 1000 INTER.UNIT TAB PO SCH (08:47)
[2017-03-19] MEDS: INSULIN ASPART 100 UNITS/ML 3 ML PEN SC SCH ×4 (08:48→21:00)
[2017-03-19] MEDS: CYANOCOBALAMIN 500 MCG TAB (VIT B-12) PO SCH (09:00)
[2017-03-19] MEDS ORDERED: CHOLECALCIFEROL 1000 INTER.UNIT TAB PO SCH (09:00)
[2017-03-19] MEDS: PANTOprazole SOD 40 MG TAB PO SCH (09:24)
[2017-03-19] MEDS: ASPIRIN 81 MG ECTAB PO SCH (09:24)
[2017-03-19] MEDS: TAMSULOSIN HCL 0.4 MG CAP PO SCH ×2 (09:24→21:17)
[2017-03-19] MEDS: AMIODARONE 200 MG TAB PO SCH (09:24)
[2017-03-19 10:39] VITALS: BP 119/70; PULSE 61; O2SAT 97
--- NOTE | 2017-03-19 11:25 | Hospitalist Progress Note ---
Hospitalist Progress Note Date of Service Mar 19, 2017. (Mago Gaston ., PA-C) Subjective Pt evaluation today including: conversation w/ patient, conversation w/ family (- at bedside ), physical exam, chart review, lab review, review of inpatient medication list Voiding: nunez catheter in place (draining clear/yellow urine) Patient states he is feeling well this AM. He is eating and drinking OK. No BMs postop, +flatus- spoke with nursing staff about bowel regimen. Hip pain is well controlled. Patient denies any fever, chills, sweats, lightheadedness, dizziness , vision changes, CP, palpitations, edema, SOB, wheezing, cough, abdominal pain , nausea, vomiting, diarrhea, urinary symptoms, melena, numbness/tingling, weakness, muscle/joint pain, anxiety/depression, active bleeding, or new skin discoloration/changes. at bedside- concerned because yesterday evening patient was experiencing delirium. Today symptoms have resolved and she reports patient is back to mental baseline. Nunez cath was placed on 03/18 due to urinary retention. When I saw the patient yesterday AM, he was requiring straight cath. Nursing paged me yesterday afternoon stating patient was starting to urinate on his own, but still retaining urine. Evening shift placed Nunez due to continued urine retention. Patient states he did follow with Dr. Diaz in the past because of elevated PSA, but was not placed on any medications and was instructed he did not need follow-up. (Mago Gaston ., PA-C) Medications Current Inpatient Medications Medications (Trade) Dose Ordered Sig/Sae Route Start Time Stop Time Status Last Admin Dose Admin Oxycodone HCl (Roxicodone Immediate Rel Tab) 1 TABLET FOR PAIN RATING... Q4H PRN PO 03/17/17 09:30 03/31/17 09:29 03/17/17 21:20 5 MG Morphine Sulfate (MoRPHine SULFATE INJ) 2 mg Q2HWA PRN IV 03/17/17 09:30 03/31/17 09:29 Acetaminophen (Tylenol Tab) 1,000 mg Q8H PO 03/17/17 14:00 04/16/17 09:29 03/19/17 05:37 1,000 MG Pregabalin (Lyrica Cap) 75 mg BID PO 03/17/17 21:00 04/16/17 20:59 03/18/17 21:28 75 MG Magnesium Hydroxide (Milk Of Magnesia Susp) 30 ml Q6H PRN PO 03/17/17 09:30 04/16/17 09:29 Diphenhydramine HCl (Benadryl Cap) 25 mg Q8H PRN PO 03/17/17 09:30 04/16/17 09:29 Al Hydrox/Mg Hydrox/Simethicone (Maalox Max Susp) 15 ml Q4H PRN PO 03/17/17 09:30 04/16/17 09:29 Zolpidem Tartrate (Ambien Tab) 5 mg HSZ PRN PO 03/17/17 09:30 04/16/17 09:29 Multivitamins (Multivitamin Tab) 1 tab QAM PO 03/18/17 09:00 04/17/17 08:59 03/19/17 08:46 1 TAB Ondansetron HCl (Zofran Inj) 4 mg Q6H PRN IV 03/17/17 09:30 04/16/17 09:29 Metoclopramide HCl (Reglan Inj) 10 mg Q6H PRN IV 03/17/17 09:30 04/16/17 09:29 Ferrous Gluconate (Ferrous Gluconate Tab) 324 mg TIDM PO 03/17/17 12:30 04/16/17 12:29 03/18/17 18:40 324 MG Pantoprazole Sodium (Protonix Tab) 40 mg QAM PO 03/18/17 09:00 04/17/17 08:59 03/19/17 09:24 40 MG Amiodarone HCl (Cordarone Tab) 200 mg QAM PO 03/18/17 09:00 04/17/17 08:59 03/19/17 09:24 200 MG Aspirin (Ecotrin Tab) 81 mg QAM PO 03/18/17 09:00 04/17/17 08:59 03/19/17 09:24 81 MG Diltiazem HCl (TIAzac CAP) 120 mg QPM PO 03/17/17 21:00 04/16/17 20:59 03/18/17 21:28 120 MG Magnesium Oxide (Mag-Ox Tab) 400 mg QPM PO 03/17/17 21:00 04/16/17 20:59 03/18/17 21:28 400 MG Niacin (Niacin Tab) 500 mg BID PO 03/17/17 21:00 04/16/17 20:59 03/19/17 08:46 500 MG Rosuvastatin Calcium (Crestor Tab) 10 mg QPM PO 03/17/17 21:00 04/16/17 20:59 03/18/17 21:28 10 MG Warfarin Sodium (Coumadin Tab) 2.5 mg DAILY@1600 PO 03/17/17 21:00 04/16/17 20:59 03/18/17 16:28 2.5 MG Cyanocobalamin (Vitamin B-12 Tab) 1,000 mcg QAM PO 03/18/17 09:00 04/17/17 08:59 03/18/17 08:39 1,000 MCG Morphine Sulfate (MoRPHine SULFATE INJ) 4 mg Q2HWA PRN IV 03/17/17 10:45 03/31/17 10:44 Morphine Sulfate (MoRPHine SULFATE INJ) 6 mg Q2HWA PRN IV 03/17/17 10:45 03/31/17 10:44 Docusate Sodium (coLACE CAP) 100 mg BID PO 03/17/17 21:00 04/16/17 20:59 03/19/17 08:46 100 MG Insulin Aspart (novoLOG ASPART) SLIDING SCALE If C... ACHS SC 03/17/17 12:00 04/16/17 11:59 03/19/17 08:48 4 UNITS Glucose (Glucose 40% Gel) 15-30 GRAMS 15 GRAMS... UD PRN PO 03/17/17 11:45 04/16/17 11:44 Glucose (Glucose Chew Tab) 4-8 Tablets 4 Tabl... UD PRN PO 03/17/17 11:45 04/16/17 11:44 Dextrose (Dextrose 50% 50ML Syringe) 25-50ML OF 50% DW IV FOR... UD PRN IV 03/17/17 11:45 04/16/17 11:44 Glucagon (Glucagon Inj) 1 mg UD PRN SQ 03/17/17 11:45 04/16/17 11:44 Cholecalciferol (Vitamin D Tab) 2,000 inter.unit QAM PO 03/18/17 09:00 04/17/17 08:59 03/19/17 08:47 2,000 INTER.UNIT Tamsulosin HCl (Flomax Cap) 0.4 mg QAM PO 03/18/17 11:30 04/16/17 09:29 03/19/17 09:24 0.4 MG Ergocalciferol (Vitamin D Cap) 50,000 interunit Sa@0900 PO 03/19/17 09:00 04/18/17 08:59 03/19/17 08:46 50,000 INTERUNIT Polyethylene (Miralax Powder Packet) 17 gm DAILY PO 03/20/17 09:00 04/19/17 08:59 UNV (Mago Gaston PA-C) Objective Vital Signs Date Time Temp Pulse Resp B/P (MAP) Pulse Ox O2 Delivery O2 Flow Rate FiO2 03/19/17 09:00 Room Air 03/19/17 07:13 36.8 63 16 127/57 (80) 93 Room Air 03/19/17 00:00 Room Air 03/18/17 23:08 36.8 69 20 151/66 (94) 94 Room Air 03/18/17 16:19 36.8 60 16 124/59 (80) 94 Room Air 03/18/17 15:30 Room Air 03/18/17 12:28 36.5 56 16 135/58 (83) 97 Room Air 03/18/17 11:40 36.5 51 16 116/56 (76) 96 Room Air (Mago Gaston PA-C) Physical Exam General Appearance: no apparent distress Eyes: normal inspection, PERRL ENT: hearing grossly normal Neck: supple Respiratory/Chest: lungs clear, no respiratory distress, no accessory muscle use Cardiovascular: regular rate, rhythm, + systolic murmur Abdomen: normal bowel sounds, non tender, + distended (slightly distented ) Extremities: no pedal edema, no calf tenderness Neurologic/Psychiatric: alert, normal mood/affect, oriented x 3 Skin: normal color, warm/dry, no rash (Mago Gaston PA-C) Laboratory Results Last 24 Hours Test 03/18/17 12:29 03/18/17 17:14 03/18/17 20:31 03/19/17 07:13 Bedside Glucose 216 mg/dl 172 mg/dl 164 mg/dl White Blood Count 13.73 K/uL Red Blood Count 3.73 M/uL Hemoglobin 10.3 g/dL Hematocrit 31.8 % Mean Corpuscular Volume 85.3 fL Mean Corpuscular Hemoglobin 27.6 pg Mean Corpuscular Hemoglobin Concent 32.4 g/dl RDW Standard Deviation 48.6 fL RDW Coefficient of Variation 15.9 % Platelet Count 207 K/uL Mean Platelet Volume 10.6 fL Prothrombin Time 12.7 SECONDS Prothromb Time International Ratio 1.2 Sodium Level 144 mmol/L Potassium Level 4.0 mmol/L Chloride Level 110 mmol/L Carbon Dioxide Level 26 mmol/L Anion Gap 8.0 mmol/L Blood Urea Nitrogen 17 mg/dl Creatinine 0.83 mg/dl Est Creatinine Clear Calc Drug Dose 64.2 ml/min Estimated GFR () 95.0 Estimated GFR (Non- 81.9 BUN/Creatinine Ratio 20.4 Random Glucose 138 mg/dl Calcium Level 8.1 mg/dl Test 03/19/17 08:02 Bedside Glucose 132 mg/dl (Mago Gaston, PAShareeC) Assessment and Plan Patient is an 81 y/o male, with PMHx of CAD s/p CABG x3, a.fib, and T2DM, admitted right ELLEN done by Dr. Hough on 03/17 s/p right ELLEN: - Pain management, DVT prophylaxis, and PT/OT as per primary team - Vitamin D level low- begin supplement; 50,000 u weekly and 2,000 u daily - Follow CBC CAD with CABG x 3 in '- STABLE/a.fib- rate controlled: - Continue Crestor 20 mg daily, ASA 81 mg daily, and Mag-Ox 400 mg daily - Diltiazem 120 mg HS, Amiodarone 200 mg QAM, and Coumadin 2.5 mg HS - Atenolol 12.5 mg daily held due to bradycardia - Follow PT/INR T2DM- controlled: - BSG ACHS w/ sliding insulin scale - hA1C on 03/04/17= 6.7% Urinary retention postop, likely multifactorial- postop + likely underlying BPH : - Flomax 0.4 mg daily increased to BID- watch BPs, likely will continue for short term at discharge - Nunez placed 03/18- planning for discharge on 03/21- will need void trail prior to discharge - Continue to monitor- if symptoms do not resolve, will further workup- note: negative UA on 03/04 - Follow PRP GI Prophylaxis: Protonix, Maalox PRN, IV Zofran PRN, Colace and/or Milk of Mag PRN, MiraLAX, Colace DVT prophylaxis: Coumadin as per primary team, GABRIELLE and SCDs Code Status: LEVEL I, FULL Dispo: Discharge as per primary team (Mago Gaston, PAShareeC) I personally examined pt and verified all pride points w Austin Gaston PA-C feeling better more like himself needed nunez discussed BPH/urinary retention, management, etc. ROS otherwise negative except for as above vitals noted nad breathing unlabored no pallor or icterus nunez draining clear yellow urine BPH w retention - flomax, nunez drainage, doesnt' seem to normally have sx so likely won't need meds for intermediate designer. after nunez dc'd would have close vigilance of LUTS as outpt delirium - resolving otherwise as above (Mason Valdes, D.O.)
--- NOTE | 2017-03-19 11:25 | Orthopedic Progress Note ---
Orthopedic Progress Note Date of Service Mar 19, 2017. Subjective Post OP Day: 2 Reports: feeling well Additional Notes: Pt states his operative leg feels shorter than nonoperative Objective calves soft nontender, N/V intact, dressing C/D/I, toes mobile Date Time Temp Pulse Resp B/P (MAP) Pulse Ox O2 Delivery O2 Flow Rate FiO2 03/19/17 09:00 Room Air 03/19/17 07:13 36.8 63 16 127/57 (80) 93 Room Air 03/19/17 00:00 Room Air 03/18/17 23:08 36.8 69 20 151/66 (94) 94 Room Air 03/18/17 16:19 36.8 60 16 124/59 (80) 94 Room Air 03/18/17 15:30 Room Air 03/18/17 12:28 36.5 56 16 135/58 (83) 97 Room Air 03/18/17 11:40 36.5 51 16 116/56 (76) 96 Room Air Laboratory Results 24 Hours: Test 03/19/17 07:13 Hematocrit 31.8 % Hemoglobin 10.3 g/dL Prothromb Time International Ratio 1.2 Prothrombin Time 12.7 SECONDS Assessment & Plan Assessment: 81 yo male stable POD #2 s/p right ELLEN Plan: 1. Med management 2. DVT prophylaxis- resume normal Coumadin use, TEDs, SCDs 3. PT/OT 4. D/C planning- home w/ HH vs N
--- NOTE | 2017-03-19 12:39 | DIAGNOSTIC IMAGING REPORT ---
RIGHT HIP UNILATERAL 2 VIEWS CLINICAL HISTORY: Right hip post-op Right COMPARISON STUDY: Right hip FINDINGS: Interval superior dislocation of the femoral prosthesis in relation to the acetabular cup. No acute fractures identified. Vascular calcifications are noted. The surgical drains within removed. Skin stephanie are in place. IMPRESSION: Interval dislocation of the femoral prosthesis in relation to the acetabular cup. No fractures. Electronically signed by: Nain German M.D. 03/19/2017 12:38 PM Dictated Date/Time: 03/19/2017 12:37 PM
--- NOTE | 2017-03-19 12:59 | Orthopedic Progress Note ---
Orthopedic Progress Note Date of Service Mar 19, 2017. Objective Date Time Temp Pulse Resp B/P (MAP) Pulse Ox O2 Delivery O2 Flow Rate FiO2 03/19/17 09:00 Room Air 03/19/17 07:13 36.8 63 16 127/57 (80) 93 Room Air 03/19/17 00:00 Room Air 03/18/17 23:08 36.8 69 20 151/66 (94) 94 Room Air 03/18/17 16:19 36.8 60 16 124/59 (80) 94 Room Air 03/18/17 15:30 Room Air Laboratory Results 24 Hours: Test 03/19/17 07:13 Hematocrit 31.8 % Hemoglobin 10.3 g/dL Prothromb Time International Ratio 1.2 Prothrombin Time 12.7 SECONDS Additional Notes: Xrays:posteriorly dislocated right ELLEN Assessment & Plan Assessment: 81 yo male POD #2 with right ELLEN dislocation Plan: Will make NPO after MN and schedule for closed reduction in AM
[2017-03-19 14:56] VITALS: BP 138/68; PULSE 62; TEMP 36.4; O2SAT 96
[2017-03-19] MEDS: WARFARIN SOD 2.5 MG TAB PO SCH (15:33)
[2017-03-19] MEDS: MAGNESIUM OXIDE 400 MG TAB PO SCH (21:16)
[2017-03-19] MEDS: ROSUVASTATIN CALCIUM 10 MG TAB PO SCH (21:17)
[2017-03-19] MEDS: DILTIAZEM HCL 120 MG EXT REL CAP PO SCH (21:17)
[2017-03-19 21:22] VITALS: BP 125/57; PULSE 65
[2017-03-19 23:02] VITALS: BP 145/65; PULSE 68; TEMP 36.8; O2SAT 94
[2017-03-20] VITALS (11 sets, daily range): BP systolic 112–152; BP diastolic 54–76; PULSE 67–77; TEMP 36.4–36.8; O2SAT 93–98
[2017-03-20] MEDS ORDERED: NURSING VERBAL MED ORDER ONE ×2 (01:45→10:30)
[2017-03-20] MEDS: ACETAMINOPHEN 500 MG TAB PO SCH ×3 (05:55→21:42)
[2017-03-20] MEDS: INSULIN ASPART 100 UNITS/ML 3 ML PEN SC SCH ×5 (05:56→21:43)
[2017-03-20 06:32] LABS: HEMATOCRIT 31.5 % (42-52); MEAN CELL VOLUME 85.4 fL (80-100); MEAN CORPUSCULAR HEMOGLOBIN 28.5 pg (25-34); MEAN CORPUSCULAR HGB CONC 33.3 g/dl (32-36); MEAN PLATELET VOLUME 10.2 fL (7.4-10.4); PLATELET COUNT 212 K/uL (130-400); RED BLOOD COUNT 3.69 M/uL (4.7-6.1); WHITE BLOOD COUNT 10.38 K/uL (4.8-10.8)
[2017-03-20 06:45] LABS: INR 1.1 (0.9-1.1); PROTHROMBIN TIME (PATIENT) 11.7 SECONDS (9.0-12.0)
[2017-03-20 07:00] LABS: BUN/CREATININE RATIO 20.8 (10-20); CALCIUM 7.8 mg/dl (8.5-10.1); CREATININE 0.8 mg/dl (0.60-1.40); POTASSIUM 3.6 mmol/L (3.5-5.1)
[2017-03-20] MEDS ORDERED: MIDAZOLAM HCL 1 MG/ML 2ML VIAL ONE (07:04)
[2017-03-20] MEDS ORDERED: FENTANYL CITRATE INJ 50 MCG/1 ML 2 ML VIAL ONE (07:04)
[2017-03-20] MEDS ORDERED: FENTANYL CITRATE INJ 50 MCG/1 ML 2 ML VIAL IV PRN (07:15)
[2017-03-20] MEDS ORDERED: EpHEDrine SULFATE INJ 50 MG/ML AMP IV PRN (07:15)
[2017-03-20] MEDS ORDERED: ONDANSETRON INJ 2 MG/ML 2 ML VIAL IV PRN (07:15)
[2017-03-20] MEDS ORDERED: ATROPINE SULFATE 0.1 MG/ML 5ML SYR IV PRN (07:15)
[2017-03-20] MEDS ORDERED: ONDANSETRON INJ 2 MG/ML 2 ML VIAL ONE (07:44)
[2017-03-20] MEDS ORDERED: PROPOFOL IV EMULSION 10 MG/ML 20 ML VIAL IV ONE (07:44)
--- NOTE | 2017-03-20 08:06 | [facility] Post Operative Brief Note ---
Immediate Operative Summary Operative Date Mar 20, 2017. Pre-Operative Diagnosis Right total hip dislocation Post-Operative Diagnosis Same as preoperative diagnosis Procedure(s) Performed Closed reduction right total hip Surgeon Dr. Royal Attending Pathologist Surgeon(s) None Estimated Blood Loss None Findings See Dict Specimens None Drains None Anesthesia General MAC Complication(s) None Disposition Recovery Room / PACU
--- NOTE | 2017-03-20 08:17 | Anesthesiology Progress Note ---
Anesthesia Post Op Note Date & Time Mar 20, 2017 at 08:18 Vital Signs Pain Intensity: 0 Vital Signs Past 12 Hours Date Time Temp Pulse Resp B/P (MAP) Pulse Ox O2 Delivery O2 Flow Rate FiO2 03/20/17 07:53 36.5 68 18 147/64 (91) 95 Room Air 03/20/17 07:08 36.6 76 16 138/76 (96) 97 Room Air 03/20/17 00:01 Room Air 03/19/17 23:02 36.8 68 20 145/65 (91) 94 Room Air 03/19/17 21:22 65 125/57 (79) Notes Mental Status: alert / awake / arousable, participated in evaluation Pt Amnestic to Procedure: Yes Nausea / Vomiting: adequately controlled Pain: adequately controlled Airway Patency, RR, SpO2: stable & adequate BP & HR: stable & adequate Hydration State: stable & adequate Anesthetic Complications: no major complications apparent
[2017-03-20] MEDS: CYANOCOBALAMIN 500 MCG TAB (VIT B-12) PO SCH (09:19)
[2017-03-20] MEDS: DOCUSATE SODIUM 100 MG CAP PO SCH ×2 (09:19→21:42)
[2017-03-20] MEDS: FERROUS GLUCONATE 324 MG TAB PO SCH ×3 (09:19→17:45)
[2017-03-20] MEDS: ASPIRIN 81 MG ECTAB PO SCH (09:19)
[2017-03-20] MEDS: MULTIVITAMIN TAB PO SCH (09:20)
[2017-03-20] MEDS: PANTOprazole SOD 40 MG TAB PO SCH (09:20)
[2017-03-20] MEDS: AMIODARONE 200 MG TAB PO SCH (09:20)
[2017-03-20] MEDS: NIACIN 500 MG TAB IMMEDIATE RELEASE PO SCH ×2 (09:20→21:42)
[2017-03-20] MEDS: CHOLECALCIFEROL 1000 INTER.UNIT TAB PO SCH (09:21)
[2017-03-20] MEDS: TAMSULOSIN HCL 0.4 MG CAP PO SCH ×2 (09:21→21:42)
[2017-03-20] MEDS: PREGABALIN 75 MG CAP PO SCH ×2 (09:25→21:40)
[2017-03-20] MEDS: POLYETHYLENE (MIRALAX) 17 GM PACK PO SCH (09:25)
--- NOTE | 2017-03-20 10:11 | OPERATIVE REPORT ---
DATE OF OPERATION: 03/20/2017 PREOPERATIVE DIAGNOSIS: Right dislocated total hip arthroplasty. POSTOPERATIVE DIAGNOSIS: Same. PROCEDURE: Right closed total hip arthroplasty reduction. SURGEON: Dr. Royal. CARPENTER FORM: None. ANESTHESIA: General MAC. SPECIMENS: None. DRAINS: None. COMPLICATIONS: None. BLOOD LOSS: None. PERTINENT HISTORY: This is an 81-year-old gentleman is a patient of Dr. Hough who had a total arthroplasty performed 3 days ago. Yesterday afternoon, the patient had noted that his right lower extremity was shorter than his left. He had no significant pain. He is sitting in a bedside chair. Radiographs were ordered and the patient was noted to have a hip dislocation. The patient also eating a full breakfast and was then scheduled for total hip reduction the first case morning. The patient was then made n.p.o. and consent was achieved. The patient was scheduled as indicated. All potential risks, benefits, complications, alternatives, rehab, potential for incomplete relief of symptoms, need for further surgery, DVT, PE, , persistent pain, swelling, scarring, weakness, hardware fracture, bone fracture were discussed with the patient and his . They both decided to proceed with the procedure as indicated. DESCRIPTION OF PROCEDURE: The patient was taken to the operative suite, placed supine on the operating room table. After review of the consent and identification of proper operative site, the patient was placed under general anesthesia with monitored anesthesia care. Next, a gentle closed reduction maneuver was performed of the right hip. A palpable clunk was noted and the leg lengths were then equalized. The patient was then kept in slight abduction and radiographs were obtained confirming concentric reduction of the femoral component into the acetabulum, both in AP and cross-table lateral projections. Next, the abduction pillow was placed between the legs. The patient was then awakened and then carefully transferred to recovery in stable condition. I attest to the content of the Intraoperative Record and any orders documented therein. Any exception s are noted below.
--- NOTE | 2017-03-20 11:18 | Hospitalist Progress Note ---
Hospitalist Progress Note Date of Service Mar 20, 2017. (Mago Gaston ., PA-C) Subjective Pt evaluation today including: conversation w/ patient, conversation w/ family (- at bedside ), physical exam, chart review, lab review, review of studies , review of inpatient medication list Voiding: nunez catheter in place (draining clear/yellow urine) Patient states he is feeling well s/p right closed total hip arthroplasty reduction today. He ate his meal w/ no complaints. +flatus, no BM. Patient denies any fever, chills, sweats, lightheadedness, dizziness, vision changes, CP , palpitations, edema, SOB, wheezing, cough, abdominal pain, nausea, vomiting, diarrhea, urinary symptoms, melena, numbness/tingling, weakness, muscle/joint pain, anxiety/depression, active bleeding, or new skin discoloration/changes. (Mago Gaston ., PA-C) Medications Current Inpatient Medications Medications (Trade) Dose Ordered Sig/Sae Route Start Time Stop Time Status Last Admin Dose Admin Oxycodone HCl (Roxicodone Immediate Rel Tab) 1 TABLET FOR PAIN RATING... Q4H PRN PO 03/17/17 09:30 03/31/17 09:29 03/17/17 21:20 5 MG Morphine Sulfate (MoRPHine SULFATE INJ) 2 mg Q2HWA PRN IV 03/17/17 09:30 03/31/17 09:29 Acetaminophen (Tylenol Tab) 1,000 mg Q8H PO 03/17/17 14:00 04/16/17 09:29 03/19/17 21:19 1,000 MG Pregabalin (Lyrica Cap) 75 mg BID PO 03/17/17 21:00 04/16/17 20:59 03/20/17 09:25 75 MG Magnesium Hydroxide (Milk Of Magnesia Susp) 30 ml Q6H PRN PO 03/17/17 09:30 04/16/17 09:29 Diphenhydramine HCl (Benadryl Cap) 25 mg Q8H PRN PO 03/17/17 09:30 04/16/17 09:29 Al Hydrox/Mg Hydrox/Simethicone (Maalox Max Susp) 15 ml Q4H PRN PO 03/17/17 09:30 04/16/17 09:29 Zolpidem Tartrate (Ambien Tab) 5 mg HSZ PRN PO 03/17/17 09:30 04/16/17 09:29 Multivitamins (Multivitamin Tab) 1 tab QAM PO 03/18/17 09:00 04/17/17 08:59 03/20/17 09:20 1 TAB Ondansetron HCl (Zofran Inj) 4 mg Q6H PRN IV 03/17/17 09:30 04/16/17 09:29 Metoclopramide HCl (Reglan Inj) 10 mg Q6H PRN IV 03/17/17 09:30 04/16/17 09:29 Ferrous Gluconate (Ferrous Gluconate Tab) 324 mg TIDM PO 03/17/17 12:30 04/16/17 12:29 03/20/17 09:19 324 MG Pantoprazole Sodium (Protonix Tab) 40 mg QAM PO 03/18/17 09:00 04/17/17 08:59 03/20/17 09:20 40 MG Amiodarone HCl (Cordarone Tab) 200 mg QAM PO 03/18/17 09:00 04/17/17 08:59 03/20/17 09:20 200 MG Aspirin (Ecotrin Tab) 81 mg QAM PO 03/18/17 09:00 04/17/17 08:59 03/20/17 09:19 81 MG Diltiazem HCl (TIAzac CAP) 120 mg QPM PO 03/17/17 21:00 04/16/17 20:59 03/19/17 21:17 120 MG Magnesium Oxide (Mag-Ox Tab) 400 mg QPM PO 03/17/17 21:00 04/16/17 20:59 03/19/17 21:16 400 MG Niacin (Niacin Tab) 500 mg BID PO 03/17/17 21:00 04/16/17 20:59 03/20/17 09:20 500 MG Rosuvastatin Calcium (Crestor Tab) 10 mg QPM PO 03/17/17 21:00 04/16/17 20:59 03/19/17 21:17 10 MG Warfarin Sodium (Coumadin Tab) 2.5 mg DAILY@1600 PO 03/17/17 21:00 04/16/17 20:59 03/19/17 15:33 2.5 MG Cyanocobalamin (Vitamin B-12 Tab) 1,000 mcg QAM PO 03/18/17 09:00 04/17/17 08:59 03/20/17 09:19 1,000 MCG Morphine Sulfate (MoRPHine SULFATE INJ) 4 mg Q2HWA PRN IV 03/17/17 10:45 03/31/17 10:44 Morphine Sulfate (MoRPHine SULFATE INJ) 6 mg Q2HWA PRN IV 03/17/17 10:45 03/31/17 10:44 Docusate Sodium (coLACE CAP) 100 mg BID PO 03/17/17 21:00 04/16/17 20:59 03/20/17 09:19 100 MG Glucose (Glucose 40% Gel) 15-30 GRAMS 15 GRAMS... UD PRN PO 03/17/17 11:45 04/16/17 11:44 Glucose (Glucose Chew Tab) 4-8 Tablets 4 Tabl... UD PRN PO 03/17/17 11:45 04/16/17 11:44 Dextrose (Dextrose 50% 50ML Syringe) 25-50ML OF 50% DW IV FOR... UD PRN IV 03/17/17 11:45 04/16/17 11:44 Glucagon (Glucagon Inj) 1 mg UD PRN SQ 03/17/17 11:45 04/16/17 11:44 Cholecalciferol (Vitamin D Tab) 2,000 inter.unit QAM PO 03/18/17 09:00 04/17/17 08:59 03/20/17 09:21 2,000 INTER.UNIT Ergocalciferol (Vitamin D Cap) 50,000 interunit Sa@0900 PO 03/19/17 09:00 04/18/17 08:59 03/19/17 08:46 50,000 INTERUNIT Polyethylene (Miralax Powder Packet) 17 gm DAILY PO 03/20/17 09:00 04/19/17 08:59 03/20/17 09:25 17 GM Tamsulosin HCl (Flomax Cap) 0.4 mg BID PO 03/19/17 21:00 04/16/17 09:29 03/20/17 09:21 0.4 MG Fentanyl Citrate (Fentanyl Inj) 50 mcg Q5M PRN IV 03/20/17 07:15 03/20/17 12:15 Ondansetron HCl (Zofran Inj) 4 mg ONE PRN IV 03/20/17 07:15 03/20/17 12:15 Ephedrine Sulfate (EpHEDrine SULFATE INJ) 5 mg Q5M PRN IV 03/20/17 07:15 03/20/17 12:15 Atropine Sulfate (Atropine Sulfate 0.1MG/Ml Inj) 0.5 mg Q1M PRN IV 03/20/17 07:15 03/20/17 12:15 Insulin Aspart (novoLOG ASPART) SLIDING SCALE If C... ACHS SC 03/20/17 12:00 04/19/17 11:59 (Mago Gaston, STEPHANIE) Objective Vital Signs Date Time Temp Pulse Resp B/P (MAP) Pulse Ox O2 Delivery O2 Flow Rate FiO2 03/20/17 11:07 36.4 69 16 116/63 (80) 98 Room Air 03/20/17 10:10 36.5 77 19 112/54 (73) 94 Room Air 03/20/17 09:40 36.7 73 16 130/67 (88) 93 Room Air 03/20/17 09:10 94 Room Air 03/20/17 09:10 94 Room Air 03/20/17 09:10 36.8 67 18 147/65 (92) 94 Room Air 03/20/17 09:00 72 18 116/61 95 Room Air 03/20/17 08:40 36.6 72 16 133/69 96 Room Air 03/20/17 08:35 61 16 135/70 96 Room Air 03/20/17 08:25 65 16 144/67 100 Room Air 03/20/17 08:15 63 16 147/74 100 Mask 5 03/20/17 08:09 36 77 16 151/71 100 Mask 10 03/20/17 07:53 36.5 68 18 147/64 (91) 95 Room Air 03/20/17 07:08 36.6 76 16 138/76 (96) 97 Room Air 03/20/17 00:01 Room Air 03/19/17 23:02 36.8 68 20 145/65 (91) 94 Room Air 03/19/17 21:22 65 125/57 (79) 03/19/17 15:23 Room Air 03/19/17 14:56 36.4 62 16 138/68 (91) 96 Room Air (Mago Gaston, EMY-C) Physical Exam General Appearance: no apparent distress Eyes: normal inspection, PERRL ENT: hearing grossly normal Neck: supple Respiratory/Chest: lungs clear, no respiratory distress, no accessory muscle use Cardiovascular: regular rate, rhythm, + systolic murmur Abdomen: normal bowel sounds, non tender, soft Extremities: no pedal edema, no calf tenderness Neurologic/Psychiatric: alert, normal mood/affect, oriented x 3 Skin: normal color, warm/dry, no rash (Mago Gaston, EMY-C) Laboratory Results Last 24 Hours Test 03/19/17 12:47 03/19/17 17:15 03/19/17 20:38 03/20/17 05:37 Bedside Glucose 124 mg/dl 152 mg/dl 133 mg/dl 125 mg/dl Test 03/20/17 06:00 03/20/17 08:23 White Blood Count 10.38 K/uL Red Blood Count 3.69 M/uL Hemoglobin 10.5 g/dL Hematocrit 31.5 % Mean Corpuscular Volume 85.4 fL Mean Corpuscular Hemoglobin 28.5 pg Mean Corpuscular Hemoglobin Concent 33.3 g/dl RDW Standard Deviation 49.5 fL RDW Coefficient of Variation 16.1 % Platelet Count 212 K/uL Mean Platelet Volume 10.2 fL Prothrombin Time 11.7 SECONDS Prothromb Time International Ratio 1.1 Sodium Level 144 mmol/L Potassium Level 3.6 mmol/L Chloride Level 109 mmol/L Carbon Dioxide Level 26 mmol/L Anion Gap 9.0 mmol/L Blood Urea Nitrogen 17 mg/dl Creatinine 0.80 mg/dl Est Creatinine Clear Calc Drug Dose 66.6 ml/min Estimated GFR () 96.4 Estimated GFR (Non- 83.2 BUN/Creatinine Ratio 20.8 Random Glucose 130 mg/dl Calcium Level 7.8 mg/dl Bedside Glucose 116 mg/dl (Mago Gaston PA-C) Assessment and Plan Patient is an 81 y/o male, with PMHx of CAD s/p CABG x3, a.fib, and T2DM, admitted right ELLEN done by Dr. Hough on 03/17 s/p right ELLEN on 03/17 and s/p right closed total hip arthroplasty reduction on 03/20: - Pain management, DVT prophylaxis, and PT/OT as per primary team - Vitamin D level low- begin supplement; 50,000 u weekly and 2,000 u daily - Follow CBC CAD with CABG x 3 in - STABLE/a.fib- rate controlled: - Continue Crestor 20 mg daily, ASA 81 mg daily, and Mag-Ox 400 mg daily - Diltiazem 120 mg HS, Amiodarone 200 mg QAM, and Coumadin 2.5 mg HS - Atenolol 12.5 mg daily held due to bradycardia - Follow PT/INR T2DM- controlled: - BSG ACHS w/ sliding insulin scale - hA1C on 03/04/17= 6.7% Urinary retention postop, likely multifactorial- postop + likely underlying BPH : - Flomax 0.4 mg daily increased to BID- watch BPs, likely will continue for short term at discharge - Nunez placed 03/18- d/c Nunez on 03/20 for void trial; bladder scan and straight cath PRN - Continue to monitor- if symptoms do not resolve, will further workup- note: negative UA on 03/04 - Follow PRP Delirium postop 03/17- RESOLVED GI Prophylaxis: Protonix, Maalox PRN, IV Zofran PRN, Colace and/or Milk of Mag PRN, MiraLAX, Colace DVT prophylaxis: Coumadin as per primary team, GABRIELLE and SCDs Code Status: LEVEL I, FULL Dispo: Discharge as per primary team- [facility] to [facility] (Mago Gaston PA-C) I personally examined pt and verified all pride points w Austin Gaston PA-C feeling better nunez just pulled waiting on +/- of voiding well on his own ROS otherwise negative except for as above vitals noted nad breathing unlabored no pallor or icterus urinary retention - almost certainly BPH driven - flomax, nunez out, follow delirium - seems to have entirely resolved. otherwise as above (Mason Valdes D.O.)
[2017-03-20] MEDS: WARFARIN SOD 2.5 MG TAB PO SCH (15:28)
[2017-03-20] MEDS: ROSUVASTATIN CALCIUM 10 MG TAB PO SCH (21:42)
[2017-03-20] MEDS: DILTIAZEM HCL 120 MG EXT REL CAP PO SCH (21:42)
[2017-03-20] MEDS: MAGNESIUM OXIDE 400 MG TAB PO SCH (21:42)
[2017-03-21] VITALS (7 sets, daily range): BP systolic 120–183; BP diastolic 58–74; PULSE 71–78; TEMP 36.5–37.3; O2SAT 94–98
[2017-03-21] MEDS: ACETAMINOPHEN 500 MG TAB PO SCH ×3 (05:43→21:19)
[2017-03-21 07:22] LABS: HEMATOCRIT 32.4 % (42-52); MEAN CELL VOLUME 85.7 fL (80-100); MEAN CORPUSCULAR HGB CONC 31.5 g/dl (32-36); MEAN PLATELET VOLUME 10.5 fL (7.4-10.4); PLATELET COUNT 218 K/uL (130-400); RED BLOOD COUNT 3.78 M/uL (4.7-6.1); WHITE BLOOD COUNT 8.92 K/uL (4.8-10.8)
[2017-03-21 07:50] LABS: BUN/CREATININE RATIO 20.4 (10-20); CALCIUM 8.1 mg/dl (8.5-10.1); CREATININE 0.69 mg/dl (0.60-1.40); POTASSIUM 3.8 mmol/L (3.5-5.1)
[2017-03-21] MEDS: FERROUS GLUCONATE 324 MG TAB PO SCH ×4 (08:38→17:24)
[2017-03-21] MEDS: DOCUSATE SODIUM 100 MG CAP PO SCH ×2 (08:39→20:16)
[2017-03-21] MEDS: TAMSULOSIN HCL 0.4 MG CAP PO SCH ×2 (08:39→20:16)
[2017-03-21] MEDS: AMIODARONE 200 MG TAB PO SCH (08:40)
[2017-03-21] MEDS: PREGABALIN 75 MG CAP PO SCH ×2 (08:40→20:15)
[2017-03-21] MEDS: NIACIN 500 MG TAB IMMEDIATE RELEASE PO SCH ×2 (08:40→20:15)
[2017-03-21] MEDS: MULTIVITAMIN TAB PO SCH (08:40)
[2017-03-21] MEDS: CHOLECALCIFEROL 1000 INTER.UNIT TAB PO SCH (08:41)
[2017-03-21] MEDS: PANTOprazole SOD 40 MG TAB PO SCH (08:41)
[2017-03-21] MEDS: CYANOCOBALAMIN 500 MCG TAB (VIT B-12) PO SCH (08:42)
[2017-03-21] MEDS: ASPIRIN 81 MG ECTAB PO SCH (08:42)
[2017-03-21] MEDS: INSULIN ASPART 100 UNITS/ML 3 ML PEN SC SCH ×4 (08:47→21:21)
[2017-03-21] MEDS: POLYETHYLENE (MIRALAX) 17 GM PACK PO SCH ×2 (08:48→20:17)
--- NOTE | 2017-03-21 09:03 | DIAGNOSTIC IMAGING REPORT ---
INTRAOPERATIVE RADIOGRAPHS CLINICAL HISTORY: Closed reduction of a dislocated right hip arthroplasty. Fluoroscopy time: 3 seconds. FINDINGS: 2 spot fluoroscopic views of the right hip are correlated with right hip radiographs dated 03/19/2017. There has been successful reduction of the dislocated right hip arthroplasty with religion of near-anatomic alignment. There is no evidence of fracture on these fluoroscopic views. Skin clips are noted. IMPRESSION: Intraoperative images from closed reduction of the dislocated right hip arthroplasty as above. Electronically signed by: Jigar Acuña M.D. 03/20/2017 8:49 AM Dictated Date/Time: 03/20/2017 8:47 AM
--- NOTE | 2017-03-21 09:03 | DIAGNOSTIC IMAGING REPORT ---
INTRAOPERATIVE RADIOGRAPHS CLINICAL HISTORY: Closed reduction of a dislocated right hip arthroplasty. Fluoroscopy time: 3 seconds. FINDINGS: 2 spot fluoroscopic views of the right hip are correlated with right hip radiographs dated 03/19/2017. There has been successful reduction of the dislocated right hip arthroplasty with druze of near-anatomic alignment. There is no evidence of fracture on these fluoroscopic views. Skin clips are noted. IMPRESSION: Intraoperative images from closed reduction of the dislocated right hip arthroplasty as above. Electronically signed by: Jigar Acuña M.D. 03/20/2017 8:49 AM Dictated Date/Time: 03/20/2017 8:47 AM
--- NOTE | 2017-03-21 09:59 | Hospitalist Progress Note ---
Hospitalist Progress Note Date of Service Mar 21, 2017. (Mago Gaston ., PA-C) Subjective Pt evaluation today including: conversation w/ patient, physical exam, chart review, lab review, review of inpatient medication list Voiding: no voiding problems, no incontinence Patient states he is feeling well s/p close reduction yesterday. He is eating and drinking OK. +flatus, no BM postop- feels he will have to go soon. Pain is well controlled. Patient denies any fever, chills, sweats, lightheadedness, dizziness, vision changes, CP, palpitations, edema, SOB, wheezing, cough, abdominal pain, nausea, vomiting, diarrhea, urinary symptoms, melena, numbness/ tingling, weakness, muscle/joint pain, anxiety/depression, active bleeding, or new skin discoloration/changes. Harman removed yesterday for void trial due to urinary retention postop 03/17. Patient denies any urinary complaints. Spoke w/ nursing staff, no urinary retention or complications since Harman removal. (Mago Gaston ., PA-C) Medications Current Inpatient Medications Medications (Trade) Dose Ordered Sig/Sae Route Start Time Stop Time Status Last Admin Dose Admin Oxycodone HCl (Roxicodone Immediate Rel Tab) 1 TABLET FOR PAIN RATING... Q4H PRN PO 03/17/17 09:30 03/31/17 09:29 03/17/17 21:20 5 MG Morphine Sulfate (MoRPHine SULFATE INJ) 2 mg Q2HWA PRN IV 03/17/17 09:30 03/31/17 09:29 Acetaminophen (Tylenol Tab) 1,000 mg Q8H PO 03/17/17 14:00 04/16/17 09:29 03/21/17 05:43 1,000 MG Pregabalin (Lyrica Cap) 75 mg BID PO 03/17/17 21:00 04/16/17 20:59 03/21/17 08:40 75 MG Magnesium Hydroxide (Milk Of Magnesia Susp) 30 ml Q6H PRN PO 03/17/17 09:30 04/16/17 09:29 Diphenhydramine HCl (Benadryl Cap) 25 mg Q8H PRN PO 03/17/17 09:30 04/16/17 09:29 Al Hydrox/Mg Hydrox/Simethicone (Maalox Max Susp) 15 ml Q4H PRN PO 03/17/17 09:30 04/16/17 09:29 Zolpidem Tartrate (Ambien Tab) 5 mg HSZ PRN PO 03/17/17 09:30 04/16/17 09:29 Multivitamins (Multivitamin Tab) 1 tab QAM PO 03/18/17 09:00 04/17/17 08:59 03/21/17 08:40 1 TAB Ondansetron HCl (Zofran Inj) 4 mg Q6H PRN IV 03/17/17 09:30 04/16/17 09:29 Metoclopramide HCl (Reglan Inj) 10 mg Q6H PRN IV 03/17/17 09:30 04/16/17 09:29 Ferrous Gluconate (Ferrous Gluconate Tab) 324 mg TIDM PO 03/17/17 12:30 04/16/17 12:29 03/21/17 08:38 324 MG Pantoprazole Sodium (Protonix Tab) 40 mg QAM PO 03/18/17 09:00 04/17/17 08:59 03/21/17 08:41 40 MG Amiodarone HCl (Cordarone Tab) 200 mg QAM PO 03/18/17 09:00 04/17/17 08:59 03/21/17 08:40 200 MG Aspirin (Ecotrin Tab) 81 mg QAM PO 03/18/17 09:00 04/17/17 08:59 03/21/17 08:42 81 MG Diltiazem HCl (TIAzac CAP) 120 mg QPM PO 03/17/17 21:00 04/16/17 20:59 03/20/17 21:42 120 MG Magnesium Oxide (Mag-Ox Tab) 400 mg QPM PO 03/17/17 21:00 04/16/17 20:59 03/20/17 21:42 400 MG Niacin (Niacin Tab) 500 mg BID PO 03/17/17 21:00 04/16/17 20:59 03/21/17 08:40 500 MG Rosuvastatin Calcium (Crestor Tab) 10 mg QPM PO 03/17/17 21:00 04/16/17 20:59 03/20/17 21:42 10 MG Warfarin Sodium (Coumadin Tab) 2.5 mg DAILY@1600 PO 03/17/17 21:00 04/16/17 20:59 03/20/17 15:28 2.5 MG Cyanocobalamin (Vitamin B-12 Tab) 1,000 mcg QAM PO 03/18/17 09:00 04/17/17 08:59 03/21/17 08:42 1,000 MCG Morphine Sulfate (MoRPHine SULFATE INJ) 4 mg Q2HWA PRN IV 03/17/17 10:45 03/31/17 10:44 Morphine Sulfate (MoRPHine SULFATE INJ) 6 mg Q2HWA PRN IV 03/17/17 10:45 03/31/17 10:44 Docusate Sodium (coLACE CAP) 100 mg BID PO 03/17/17 21:00 04/16/17 20:59 03/21/17 08:39 100 MG Glucose (Glucose 40% Gel) 15-30 GRAMS 15 GRAMS... UD PRN PO 03/17/17 11:45 04/16/17 11:44 Glucose (Glucose Chew Tab) 4-8 Tablets 4 Tabl... UD PRN PO 03/17/17 11:45 04/16/17 11:44 Dextrose (Dextrose 50% 50ML Syringe) 25-50ML OF 50% DW IV FOR... UD PRN IV 03/17/17 11:45 04/16/17 11:44 Glucagon (Glucagon Inj) 1 mg UD PRN SQ 03/17/17 11:45 04/16/17 11:44 Cholecalciferol (Vitamin D Tab) 2,000 inter.unit QAM PO 03/18/17 09:00 04/17/17 08:59 03/21/17 08:41 2,000 INTER.UNIT Ergocalciferol (Vitamin D Cap) 50,000 interunit Sa@0900 PO 03/19/17 09:00 04/18/17 08:59 03/19/17 08:46 50,000 INTERUNIT Polyethylene (Miralax Powder Packet) 17 gm DAILY PO 03/20/17 09:00 04/19/17 08:59 03/21/17 08:48 17 GM Tamsulosin HCl (Flomax Cap) 0.4 mg BID PO 03/19/17 21:00 04/16/17 09:29 03/21/17 08:39 0.4 MG Insulin Aspart (novoLOG ASPART) SLIDING SCALE If C... ACHS SC 03/20/17 12:00 04/19/17 11:59 03/21/17 08:47 4 UNITS (Mago Gaston PA-C) Objective Vital Signs Date Time Temp Pulse Resp B/P (MAP) Pulse Ox O2 Delivery O2 Flow Rate FiO2 03/21/17 07:50 Room Air 03/21/17 07:08 36.5 71 16 147/64 (91) 95 Room Air 03/21/17 03:30 36.8 75 18 125/58 (80) 94 Room Air 03/20/17 23:40 Room Air 03/20/17 22:43 36.7 70 17 152/73 (99) 97 Room Air 03/20/17 21:44 68 133/68 (89) 03/20/17 19:11 36.4 69 16 119/62 (81) 97 Room Air 03/20/17 15:34 36.7 74 16 130/67 (88) 94 Room Air 03/20/17 15:15 Room Air 03/20/17 12:10 36.4 72 18 126/61 (82) 95 Room Air 03/20/17 11:07 36.4 69 16 116/63 (80) 98 Room Air 03/20/17 10:10 36.5 77 19 112/54 (73) 94 Room Air (Mago Gaston PA-C) Physical Exam General Appearance: WD/WN, no apparent distress Eyes: normal inspection, PERRL ENT: hearing grossly normal Neck: supple Respiratory/Chest: lungs clear, no respiratory distress, no accessory muscle use Cardiovascular: regular rate, rhythm, + systolic murmur Abdomen: normal bowel sounds, non tender, soft Extremities: no pedal edema, no calf tenderness, + pertinent finding (TEDs on ) Neurologic/Psychiatric: alert, normal mood/affect, oriented x 3 Skin: normal color, warm/dry, no rash (Mago Gaston, SANDRAC) Laboratory Results Last 24 Hours Test 03/20/17 12:20 03/20/17 17:04 03/20/17 20:28 03/21/17 06:38 Bedside Glucose 148 mg/dl 137 mg/dl 205 mg/dl White Blood Count 8.92 K/uL Red Blood Count 3.78 M/uL Hemoglobin 10.2 g/dL Hematocrit 32.4 % Mean Corpuscular Volume 85.7 fL Mean Corpuscular Hemoglobin 27.0 pg Mean Corpuscular Hemoglobin Concent 31.5 g/dl RDW Standard Deviation 50.7 fL RDW Coefficient of Variation 16.4 % Platelet Count 218 K/uL Mean Platelet Volume 10.5 fL Sodium Level 142 mmol/L Potassium Level 3.8 mmol/L Chloride Level 107 mmol/L Carbon Dioxide Level 28 mmol/L Anion Gap 7.0 mmol/L Blood Urea Nitrogen 14 mg/dl Creatinine 0.69 mg/dl Est Creatinine Clear Calc Drug Dose 77.2 ml/min Estimated GFR () 102.5 Estimated GFR (Non- 88.4 BUN/Creatinine Ratio 20.4 Random Glucose 116 mg/dl Calcium Level 8.1 mg/dl Test 03/21/17 08:01 Bedside Glucose 142 mg/dl (Mago Gaston, PA-C) Assessment and Plan Patient is an 81 y/o male, with PMHx of CAD s/p CABG x3, a.fib, and T2DM, admitted right ELLEN done by Dr. Hough on 03/17 s/p right ELLEN on 03/17 and s/p right closed total hip arthroplasty reduction on 03/20: - Pain management, DVT prophylaxis, and PT/OT as per primary team - Vitamin D level low- begin supplement; 50,000 u weekly and 2,000 u daily CAD with CABG x 3 in '95- STABLE/a.fib- rate controlled: - Continue Crestor 20 mg daily, ASA 81 mg daily, and Mag-Ox 400 mg daily - Diltiazem 120 mg HS, Amiodarone 200 mg QAM, and Coumadin 2.5 mg HS - Resume Atenolol 12.5 mg daily - Follow PT/INR T2DM- controlled: - BSG ACHS w/ sliding insulin scale - hA1C on 03/04/17= 6.7% Urinary retention postop, likely multifactorial- postop + likely underlying BPH - RESOLVED: - Flomax 0.4 mg daily increased to BID- watch BPs, likely will continue for short term at discharge and f/u w/ PCP - Harman placed 03/18- d/c Harman on 03/20 for void trial; bladder scan and straight cath PRN- NO urinary retention or symptoms reported by patient/nursing staff on 03/21 - Continue to monitor- if symptoms do not resolve, will further workup- note: negative UA on 03/04 Delirium postop 03/17- RESOLVED GI Prophylaxis: Protonix, Maalox PRN, IV Zofran PRN, Colace and/or Milk of Mag PRN, MiraLAX, Colace DVT prophylaxis: Coumadin as per primary team, GABRIELLE and SCDs Code Status: LEVEL I, FULL Dispo: Discharge as per primary team- likely to [facility] (Mago Gaston, STEPHANIE) Reviewed: Pt Seen/Exam by Me (Marcy Bustamante MD) History Physician Integrated [employer] 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 Discussed with EMY Gaston and agree with findings and plan as documented in the note. Any exceptions or clarifications are listed here: Pt doing well. INR subtherapeutic still. C/o no BM in 5 days Vitals reviewed NAD, sitting in chair, AAOx3 RRR no mgr CTAB no wcr, breathing unlabored Abd +BS, soft NT ND Ext Rt hip with dressing c/d/i, no edema, no calf tenderness or pedal edema SKin: no rashes 81 yo male with right ELLEN complicated by post-op joint dislocation now s/p closed reduction. Much improved -continue PT/OT -no bridging with full dose Lovenox given recent surgery and is in NSR here, continue coumadin and follow INR -increase Miralax to bid and give Bisacodyl suppos now for constipation -keep K+ at or above 4.0 given h/o PAF--> give KCl 20meq po x 1 now -expect dc to [facility] soon Documented By: Marcy Bustamante (Marcy Bustamante MD)
[2017-03-21] MEDS ORDERED: POTASSIUM CHLORIDE 10 MEQ TABCR PO STA (14:05)
[2017-03-21] MEDS ORDERED: BISACODYL 10 MG SUPP PR STA (14:23)
[2017-03-21] MEDS: OXYCODONE HCL IR 5 MG TAB (IMMEDIATE RELEASE) PO PRN (14:56)
--- NOTE | 2017-03-21 15:37 | Orthopedic Progress Note ---
Orthopedic Progress Note Date of Service Mar 21, 2017. Subjective Reports: feeling well, Denies: chest pain, SOB, nausea / vomiting, light headedness, calf pain Additional Notes: Pt states that his hip is feeling "ok" today. Was up with PT today and ambulated approx 100 feet. Hoping to go to [facility] soon. Still has not had a BM but is passing gas. We went over hip precautions again of which the patient seemed to understand. His is present and she understands precautions as well. Discussed that this possibly could come out again and that he is to adhere to his precautions. Objective calves soft nontender, N/V intact, hip located, dressing C/D/I, A&O x3, toes mobile Date Time Temp Pulse Resp B/P (MAP) Pulse Ox O2 Delivery O2 Flow Rate FiO2 03/21/17 12:00 36.5 72 16 120/72 (88) 98 Room Air 03/21/17 07:50 Room Air 03/21/17 07:08 36.5 71 16 147/64 (91) 95 Room Air 03/21/17 03:30 36.8 75 18 125/58 (80) 94 Room Air 03/20/17 23:40 Room Air 03/20/17 22:43 36.7 70 17 152/73 (99) 97 Room Air 03/20/17 21:44 68 133/68 (89) 03/20/17 19:11 36.4 69 16 119/62 (81) 97 Room Air 03/20/17 15:34 36.7 74 16 130/67 (88) 94 Room Air Laboratory Results 24 Hours: Test 03/21/17 06:38 Hematocrit 32.4 % Hemoglobin 10.2 g/dL Assessment & Plan Assessment: POD 4 s/p Right ELLEN with ELLEN dislocation over the weekend. Reduced on 03/20/17 Plan: Planning for [facility]. Waiting for auth. Pt also needs to have BM for [facility].
[2017-03-21] MEDS: WARFARIN SOD 2.5 MG TAB PO SCH (16:03)
[2017-03-21] MEDS: DILTIAZEM HCL 120 MG EXT REL CAP PO SCH (20:15)
[2017-03-21] MEDS: ROSUVASTATIN CALCIUM 10 MG TAB PO SCH (20:16)
[2017-03-21] MEDS: MAGNESIUM OXIDE 400 MG TAB PO SCH (20:16)
[2017-03-22] VITALS (7 sets, daily range): BP systolic 107–155; BP diastolic 56–74; PULSE 63–76; TEMP 36.5–36.9; O2SAT 94–97
[2017-03-22] MEDS: ACETAMINOPHEN 500 MG TAB PO SCH ×3 (05:28→21:16)
--- NOTE | 2017-03-22 08:30 | Orthopedic Progress Note ---
Orthopedic Progress Note Date of Service Mar 22, 2017. Subjective Post OP Day: 5 Reports: feeling well, Denies: chest pain, SOB, nausea / vomiting, light headedness, calf pain Objective calves soft nontender, N/V intact, hip located, dressing C/D/I (SILVERLON), A&O x3, toes mobile Date Time Temp Pulse Resp B/P (MAP) Pulse Ox O2 Delivery O2 Flow Rate FiO2 03/22/17 07:10 36.6 76 16 132/70 (90) 95 Room Air 03/21/17 22:45 36.9 71 16 161/68 (99) 96 Room Air 03/21/17 20:14 78 149/69 (95) 03/21/17 20:08 37.3 15 183/74 (110) 96 Room Air 03/21/17 19:15 Nasal Cannula 03/21/17 15:39 36.6 72 18 164/72 (102) 96 Room Air 03/21/17 12:00 36.5 72 16 120/72 (88) 98 Room Air Laboratory Results 24 Hours: Test 03/22/17 04:44 Assessment & Plan Assessment: POD 5 s/p Right ELLEN with ELLEN dislocation over the weekend. Reduced on 03/20/17 Plan: Planning for [facility]. Waiting for auth. TRANSFER TODAY IF ACCEPTED Inhouse Planning Pain Management: PO Tylenol, Oxy IR DVT Prophylaxis: Coumadin, ASA Discharge Planning Discharge Planning: rehab hospital (APPROVAL PENDING FOR [facility])
[2017-03-22] MEDS ORDERED: ACET-1138 PO (08:32)
[2017-03-22] MEDS ORDERED: RXC5 PO (08:32)
--- NOTE | 2017-03-22 08:34 | Discharge Instructions ---
Discharge Instructions Date of Service Mar 22, 2017. Admission Reason for Admission: Right Hip Osteoarthritis Discharge Discharge Diagnosis / Problem: SP CLOSED REDUCTION RIGHT ELLEN; SP ELLEN POD5 Discharge Goals Goal(s): Decrease discomfort, Improve function, Increase independence Activity Recommendations Activity Level: Assistance Required Therapies: Physical Therapy, Occupational Therapy . Additional Information Patient informed of condition: Yes Advance Directives: Yes DNR: No Level of Care: Acute Rehab Communicable Disease: No Prognosis: Stable Current Hospital Diet Patient's current hospital diet: Diabetes Type 2 Diet Discharge Diet Recommended Diet: Regular Diet Procedures Procedures Performed: Closed reduction right total hip Pending Studies Studies pending at discharge: no Physician Orders On Transfer Additional Orders: CHRONIC COUMADIN- WILL REQUIRE WEEKLY PT/INR MONITORING STRICT HIP PRECAUTIONS TEDS X 2 WEEKS DC SILVERLON DRESSING AFTER 7 DAYS FROM SURGERY FOLLOW UP WITH DR. SWARTZ SCHEDULED IN 10-14 DAYS FOR STAPLE REMOVAL. Laboratory Results Hemoglobin A1c Test 03/04/17 11:37 Range/Units Estimated Average Glucose 146 mg/dl Hemoglobin A1c 6.7 H 4.5-5.6 % Medical Emergencies . Who to Call and When: Medical Emergencies: If at any time you feel your situation is an emergency, please call 911 immediately. . Non-Emergent Contact Non-Emergency issues call your: Surgeon . . "Provider Documentation" section prepared by Tarsha Mast. . Core Measure Problem Core Measures: None [place] Drug Monitoring Program Search Results: patient reviewed within database, no issues identified
[2017-03-22] MEDS: POLYETHYLENE (MIRALAX) 17 GM PACK PO SCH ×2 (09:00→21:16)
[2017-03-22] MEDS: DOCUSATE SODIUM 100 MG CAP PO SCH ×2 (09:20→21:15)
[2017-03-22] MEDS: FERROUS GLUCONATE 324 MG TAB PO SCH ×3 (09:20→18:39)
[2017-03-22] MEDS: TAMSULOSIN HCL 0.4 MG CAP PO SCH ×2 (09:21→21:15)
[2017-03-22] MEDS: ASPIRIN 81 MG ECTAB PO SCH (09:21)
[2017-03-22] MEDS: MULTIVITAMIN TAB PO SCH (09:22)
[2017-03-22] MEDS: CHOLECALCIFEROL 1000 INTER.UNIT TAB PO SCH (09:22)
[2017-03-22] MEDS: PANTOprazole SOD 40 MG TAB PO SCH (09:23)
[2017-03-22] MEDS: NIACIN 500 MG TAB IMMEDIATE RELEASE PO SCH ×2 (09:24→21:15)
[2017-03-22] MEDS: CYANOCOBALAMIN 500 MCG TAB (VIT B-12) PO SCH (09:24)
[2017-03-22] MEDS: AMIODARONE 200 MG TAB PO SCH (09:25)
[2017-03-22] MEDS: PREGABALIN 75 MG CAP PO SCH ×2 (09:31→21:15)
[2017-03-22] MEDS: INSULIN ASPART 100 UNITS/ML 3 ML PEN SC SCH ×4 (09:38→21:21)
[2017-03-22 09:49] LABS: INR 1.3 (0.9-1.1); PROTHROMBIN TIME (PATIENT) 13.5 SECONDS (9.0-12.0)
[2017-03-22] MEDS: OXYCODONE HCL IR 5 MG TAB (IMMEDIATE RELEASE) PO PRN (10:51)
--- NOTE | 2017-03-22 11:41 | DIAGNOSTIC IMAGING REPORT ---
RIGHT HIP UNILATERAL 2 VIEWS CLINICAL HISTORY: R/O dislocation Right dislocation COMPARISON: 03/19/2017 DISCUSSION: Total right hip prosthetic. Dislocation of the femoral prosthesis. No acute bony abnormality. IMPRESSION: Dislocation total right hip prosthetic. Electronically signed by: Rizwan Terrazas M.D. 03/22/2017 11:40 AM Dictated Date/Time: 03/22/2017 11:39 AM
[2017-03-22] MEDS ORDERED: MIDAZOLAM HCL 1 MG/ML 2ML VIAL ONE (13:19)
[2017-03-22] MEDS ORDERED: PROPOFOL IV EMULSION 10 MG/ML 20 ML VIAL IV ONE (13:19)
[2017-03-22] MEDS ORDERED: FENTANYL CITRATE INJ 50 MCG/1 ML 2 ML VIAL ONE (13:48)
[2017-03-22] MEDS ORDERED: ONDANSETRON INJ 2 MG/ML 2 ML VIAL IV PRN ×2 (14:15)
[2017-03-22] MEDS ORDERED: BISACODYL 10 MG SUPP PR PRN (14:15)
[2017-03-22] MEDS ORDERED: SOD PHOSPHATE/SOD BIPHOSPHATE ENEMA 132 ML BTL PR PRN (14:15)
[2017-03-22] MEDS ORDERED: OXYCODONE HCL IR 5 MG TAB (IMMEDIATE RELEASE) PO PRN (14:15)
[2017-03-22] MEDS ORDERED: TRAMADOL HCL 50 MG TAB PO PRN (14:15)
[2017-03-22] MEDS ORDERED: METOCLOPRAMIDE HCL INJ 5 MG/ML 2 ML VIAL IV PRN (14:15)
[2017-03-22] MEDS ORDERED: FENTANYL CITRATE INJ 50 MCG/1 ML 2 ML VIAL IV PRN (14:15)
[2017-03-22] MEDS ORDERED: ATROPINE SULFATE 0.1 MG/ML 5ML SYR IV PRN (14:15)
--- NOTE | 2017-03-22 14:22 | DIAGNOSTIC IMAGING REPORT ---
INTRAOPERATIVE FLUOROSCOPIC IMAGE OF THE RIGHT HIP CLINICAL HISTORY: Dislocation. COMPARISON STUDY: Right hip radiographs March 22, 2017 11:14 AM. Fluoroscopy time: 2.6 seconds. FINDINGS: Single AP fluoroscopic image demonstrates interval reduction with anatomic alignment of the right hip arthroplasty. The distal aspect of the femoral component was not imaged on this exam. IMPRESSION: Intraoperative fluoroscopic image demonstrating anatomic alignment of the right hip arthroplasty status post reduction. Electronically signed by: Sam Crowley M.D. 03/22/2017 2:21 PM Dictated Date/Time: 03/22/2017 2:19 PM
[2017-03-22] MEDS ORDERED: LABETALOL HCL IV 5 MG/ML 20ML IV ONE (14:23)
[2017-03-22] MEDS ORDERED: LABETALOL HCL IV 5 MG/ML 20ML IV PRN (14:45)
--- NOTE | 2017-03-22 15:06 | Anesthesiology Progress Note ---
Anesthesia Post Op Note Date & Time Mar 22, 2017 at 15:06 Vital Signs Pain Intensity: 0 Vital Signs Past 12 Hours Date Time Temp Pulse Resp B/P (MAP) Pulse Ox O2 Delivery O2 Flow Rate FiO2 03/22/17 14:43 36.4 164/89 03/22/17 14:35 36.3 60 16 175/79 99 Nasal Cannula 2 03/22/17 14:25 62 16 181/78 100 Mask 10 03/22/17 14:15 68 16 192/81 100 Mask 10 03/22/17 14:07 36.3 65 16 189/87 100 Mask 10 03/22/17 13:12 36.6 64 18 159/79 96 Room Air 03/22/17 07:45 Room Air 03/22/17 07:10 36.6 76 16 132/70 (90) 95 Room Air Notes Mental Status: alert / awake / arousable, participated in evaluation Pt Amnestic to Procedure: Yes Nausea / Vomiting: adequately controlled Pain: adequately controlled Airway Patency, RR, SpO2: stable & adequate BP & HR: stable & adequate Hydration State: stable & adequate Anesthetic Complications: no major complications apparent
[2017-03-22] MEDS: SODIUM CHLORIDE 0.9% 1000ML 1,000 ML IV SCH (15:41)
[2017-03-22] MEDS: WARFARIN SOD 2.5 MG TAB PO SCH (16:00)
--- NOTE | 2017-03-22 16:17 | OPERATIVE REPORT ---
DATE OF OPERATION: 03/22/2017 PREOPERATIVE DIAGNOSIS: Dislocation, right total hip. POSTOPERATIVE DIAGNOSIS: Dislocation, right total hip. PROCEDURES: Closed reduction and examination under anesthesia, right total hip. SURGEON: Dr. Hough. ANESTHESIA: General. COMPLICATIONS: None. DESCRIPTION OF PROCEDURE: Following induction of adequate general anesthesia, the patient was placed on the operating table and general anesthetic was initiated. Following this very easy closed reduction was carried out using longitudinal. Exam under anesthesia showed no unusual instability. Check x-ray revealed anatomic concentric reduction. The patient was awakened and taken to recovery room in stable and good condition. He tolerated the procedure well with an abduction pillow in place. He was transported to the regular bed and was transported to the recovery room. I attest to the content of the Intraoperative Record and any orders documented therein. Any exceptions are noted below. ADDENDUM TALENT DIRECTOR: EMY West. Mr. Short was essential through all portions of the case including positioning, prepping, draping, operating room surgical technologist, wound closure and dressing application. KRISTEN
[2017-03-22] MEDS ORDERED: HydrALAZINE HCL 20 MG/ML VIAL IV. PRN (16:30)
--- NOTE | 2017-03-22 16:34 | Hospitalist Progress Note ---
Hospitalist Progress Note Date of Service Mar 22, 2017. Subjective Pt evaluation today including: conversation w/ patient, conversation w/ family Pt had his hip dislocate again today. Had pain with PT and repeat xray confirmed this. He went under conscious sedation and had it relocated. Seems a bit confused now which occurred after anesthesia previously. Denies CP or SOB, no abd pain. All Other Systems: Reviewed and Negative Objective Vital Signs Date Time Temp Pulse Resp B/P (MAP) Pulse Ox O2 Delivery O2 Flow Rate FiO2 03/22/17 15:50 36.5 65 18 147/74 (98) 96 Room Air 03/22/17 15:40 Room Air 03/22/17 15:20 36.5 63 16 145/69 (94) 96 Room Air 03/22/17 14:43 36.4 164/89 03/22/17 14:35 36.3 60 16 175/79 99 Nasal Cannula 2 03/22/17 14:25 62 16 181/78 100 Mask 10 03/22/17 14:15 68 16 192/81 100 Mask 10 03/22/17 14:07 36.3 65 16 189/87 100 Mask 10 03/22/17 13:12 36.6 64 18 159/79 96 Room Air 03/22/17 07:45 Room Air 03/22/17 07:10 36.6 76 16 132/70 (90) 95 Room Air 03/21/17 22:45 36.9 71 16 161/68 (99) 96 Room Air 03/21/17 20:14 78 149/69 (95) 03/21/17 20:08 37.3 15 183/74 (110) 96 Room Air 03/21/17 19:15 Nasal Cannula Physical Exam General Appearance: WD/WN, no apparent distress Eyes: normal inspection, sclerae normal ENT: hearing grossly normal Neck: trachea midline Respiratory/Chest: lungs clear, normal breath sounds, no respiratory distress, no accessory muscle use Cardiovascular: regular rate, rhythm, no edema, no gallop, no murmur Abdomen: normal bowel sounds, non tender, soft, no organomegaly, no pulsatile mass Extremities: no pedal edema, no calf tenderness, + pertinent finding (right hip dressing c/d/i, legs in abduction wedge) Neurologic/Psychiatric: alert, normal mood/affect, + disoriented (oriented to person only but remembered where he was with reminder) Skin: normal color, warm/dry, no rash Laboratory Results Last 24 Hours Test 03/21/17 16:59 03/21/17 21:03 03/22/17 07:52 03/22/17 09:16 Bedside Glucose 167 mg/dl 184 mg/dl 164 mg/dl Prothrombin Time 13.5 SECONDS Prothromb Time International Ratio 1.3 Test 03/22/17 11:40 03/22/17 13:17 03/22/17 14:12 Bedside Glucose 125 mg/dl 150 mg/dl 131 mg/dl Assessment and Plan Patient is an 81 y/o male, with PMHx of CAD s/p CABG x3, a.fib, and T2DM, admitted right ELLEN done by Dr. Hough on 03/17, complicated by post-op joint dislocation x 2, now s/p closed reduction x 2. Right ELLEN on 03/17 and s/p right closed total hip arthroplasty reduction on 03/20 and again 03/22. Needs repeat ELLEN to change out the socket type on -hold coumadin now in prep for surgery -if INR >1.8 tomorrow, will give Vit K and one dose of Lovenox in AM if ok with Ortho - Pain management,bowel regimen - PT/OT - Vitamin D level low- begin supplement; 50,000 u weekly and 2,000 u daily CAD with CABG x 3 in '- STABLE/Paroxysmal a.fib-in sinus here on exam/HTN-BPs elevated - Continue Crestor 20 mg daily, ASA 81 mg daily, and Mag-Ox 400 mg daily - Diltiazem 120 mg HS, Amiodarone 200 mg QAM, and Coumadin 2.5 mg HS to be restarted after next surgery - continue Atenolol 12.5 mg daily -add on IV hydralazine prn for improved BP control and post-op may need ACEI - Follow PT/INR T2DM- controlled: - BSG ACHS w/ sliding insulin scale - hA1C on 03/04/17= 6.7% Urinary retention postop, likely multifactorial- postop + likely underlying BPH - RESOLVED: - Flomax 0.4 mg daily increased to BID- watch BPs, likely will continue for short term at discharge and f/u w/ PCP - Harman placed 03/18- d/c Harman on 03/20 for void trial; bladder scan and straight cath PRN- NO urinary retention or symptoms reported by patient/nursing staff on 03/21 - Continue to monitor- if symptoms do not resolve, will further workup- note: negative UA on 03/04 Delirium postop 03/17- RESOLVED but now some again after anesthesia for hip relocation--> observation, supportive care GI Prophylaxis: Protonix, Maalox PRN, IV Zofran PRN, Colace and/or Milk of Mag PRN, MiraLAX, Colace DVT prophylaxis: GABRIELLE and SCDs, holding coumadin today Code Status: LEVEL I, FULL Dispo: to rehab post-op
[2017-03-22] MEDS ORDERED: DOCUSATE SODIUM 100 MG CAP PO SCH (21:00)
[2017-03-22] MEDS: ROSUVASTATIN CALCIUM 10 MG TAB PO SCH (21:15)
[2017-03-22] MEDS: MAGNESIUM OXIDE 400 MG TAB PO SCH (21:15)
[2017-03-22] MEDS: DILTIAZEM HCL 120 MG EXT REL CAP PO SCH (21:15)
[2017-03-23] MEDS: SODIUM CHLORIDE 0.9% 1000ML 1,000 ML IV SCH
[2017-03-23 03:40] VITALS: BP 111/63; PULSE 63; TEMP 36.8; O2SAT 97
[2017-03-23] MEDS: ACETAMINOPHEN 500 MG TAB PO SCH ×3 (05:44→21:53)
[2017-03-23 07:41] VITALS: BP 129/66; PULSE 67; TEMP 36.6; O2SAT 97
[2017-03-23 07:42] LABS: BASO % 0.1 %; BASO ABS # 0.01 K/uL (0-0.2); COMPLETE YES; EOS % 0.8 %; HEMATOCRIT 31.2 % (42-52); IG% 0.9 %; LYMPH % 15.8 %; LYMPH ABS # 1.33 K/uL (1.2-3.4); MEAN CELL VOLUME 85.2 fL (80-100); MEAN CORPUSCULAR HGB CONC 31.7 g/dl (32-36); MEAN PLATELET VOLUME 9.7 fL (7.4-10.4); MONO % 15.5 %; NEUT % 66.9 %; PLATELET COUNT 238 K/uL (130-400); RED BLOOD COUNT 3.66 M/uL (4.7-6.1); WHITE BLOOD COUNT 8.43 K/uL (4.8-10.8)
[2017-03-23 07:48] LABS: INR 1.2 (0.9-1.1); PROTHROMBIN TIME (PATIENT) 13.4 SECONDS (9.0-12.0)
[2017-03-23 08:18] LABS: BUN/CREATININE RATIO 23.7 (10-20); CREATININE 0.79 mg/dl (0.60-1.40); MAGNESIUM 2.1 mg/dl (1.8-2.4); POTASSIUM 4.2 mmol/L (3.5-5.1)
--- NOTE | 2017-03-23 08:30 | Anesthesiology Progress Note ---
Anesthesia Post Op Note Date & Time Mar 23, 2017 at 08:30 Vital Signs Vital Signs Past 12 Hours Date Time Temp Pulse Resp B/P (MAP) Pulse Ox O2 Delivery O2 Flow Rate FiO2 03/23/17 07:41 36.6 67 18 129/66 (87) 97 Room Air 03/23/17 03:40 36.8 63 16 111/63 (79) 97 Room Air 03/22/17 23:59 Room Air 03/22/17 22:48 36.9 65 16 122/71 (88) 97 Room Air Notes Mental Status: alert / awake / arousable, participated in evaluation Pt Amnestic to Procedure: Yes Nausea / Vomiting: adequately controlled Pain: adequately controlled Airway Patency, RR, SpO2: stable & adequate BP & HR: stable & adequate Hydration State: stable & adequate Anesthetic Complications: no major complications apparent
[2017-03-23 08:48] LABS: CALCIUM 8.3 mg/dl (8.5-10.1)
[2017-03-23] MEDS: ASPIRIN 81 MG ECTAB PO SCH (09:31)
[2017-03-23] MEDS: DOCUSATE SODIUM 100 MG CAP PO SCH ×2 (09:31→20:39)
[2017-03-23] MEDS: FERROUS GLUCONATE 324 MG TAB PO SCH ×3 (09:31→18:27)
[2017-03-23] MEDS: TAMSULOSIN HCL 0.4 MG CAP PO SCH ×2 (09:32→20:39)
[2017-03-23] MEDS: PANTOprazole SOD 40 MG TAB PO SCH (09:33)
[2017-03-23] MEDS: POLYETHYLENE (MIRALAX) 17 GM PACK PO SCH ×2 (09:33→20:39)
[2017-03-23] MEDS: CYANOCOBALAMIN 500 MCG TAB (VIT B-12) PO SCH (09:33)
[2017-03-23] MEDS: MULTIVITAMIN TAB PO SCH (09:35)
[2017-03-23] MEDS: NIACIN 500 MG TAB IMMEDIATE RELEASE PO SCH ×2 (09:35→20:39)
[2017-03-23] MEDS: CHOLECALCIFEROL 1000 INTER.UNIT TAB PO SCH (09:36)
[2017-03-23] MEDS: AMIODARONE 200 MG TAB PO SCH (09:36)
[2017-03-23] MEDS: INSULIN ASPART 100 UNITS/ML 3 ML PEN SC SCH ×4 (09:39→20:45)
[2017-03-23] MEDS: PREGABALIN 75 MG CAP PO SCH ×2 (09:47→20:40)
[2017-03-23] MEDS ORDERED: NURSING VERBAL MED ORDER ONE (10:30)
[2017-03-23 11:12] VITALS: BP 152/68; PULSE 65; TEMP 36.8; O2SAT 96
--- NOTE | 2017-03-23 11:51 | Hospitalist Progress Note ---
Hospitalist Progress Note Date of Service Mar 23, 2017. (Mago Gaston ., PA-C) Subjective Pt evaluation today including: conversation w/ patient, conversation w/ family (- at bedisde), physical exam, chart review, lab review, review of studies Voiding: no voiding problems, no incontinence Patient states he is feeling well. Hip pain is well controlled. He is eating and drinking OK. Denies urinary issues. He had a BM on 03/21. Patient denies any fever, chills, sweats, lightheadedness, dizziness, vision changes, CP, palpitations, edema, SOB, wheezing, cough, abdominal pain, nausea, vomiting, diarrhea, urinary symptoms, melena, numbness/tingling, weakness, muscle/joint pain, anxiety/depression, active bleeding, or new skin discoloration/changes. Per nursing staff, patient required straight cath on 03/22 postop closed reduction. He has required no straight cath today. (Mago Gaston ., EMY-C) Medications Current Inpatient Medications Medications (Trade) Dose Ordered Sig/Sae Route Start Time Stop Time Status Last Admin Dose Admin Acetaminophen (Tylenol Tab) 1,000 mg Q8H PO 03/17/17 14:00 04/16/17 09:29 03/23/17 05:44 1,000 MG Pregabalin (Lyrica Cap) 75 mg BID PO 03/17/17 21:00 04/16/17 20:59 03/23/17 09:47 75 MG Diphenhydramine HCl (Benadryl Cap) 25 mg Q8H PRN PO 03/17/17 09:30 04/16/17 09:29 Al Hydrox/Mg Hydrox/Simethicone (Maalox Max Susp) 15 ml Q4H PRN PO 03/17/17 09:30 04/16/17 09:29 Zolpidem Tartrate (Ambien Tab) 5 mg HSZ PRN PO 03/17/17 09:30 04/16/17 09:29 Multivitamins (Multivitamin Tab) 1 tab QAM PO 03/18/17 09:00 04/17/17 08:59 03/23/17 09:35 1 TAB Ferrous Gluconate (Ferrous Gluconate Tab) 324 mg TIDM PO 03/17/17 12:30 04/16/17 12:29 03/23/17 09:31 324 MG Pantoprazole Sodium (Protonix Tab) 40 mg QAM PO 03/18/17 09:00 04/17/17 08:59 03/23/17 09:33 40 MG Amiodarone HCl (Cordarone Tab) 200 mg QAM PO 03/18/17 09:00 04/17/17 08:59 03/23/17 09:36 200 MG Aspirin (Ecotrin Tab) 81 mg QAM PO 03/18/17 09:00 04/17/17 08:59 03/23/17 09:31 81 MG Diltiazem HCl (TIAzac CAP) 120 mg QPM PO 03/17/17 21:00 04/16/17 20:59 03/22/17 21:15 120 MG Magnesium Oxide (Mag-Ox Tab) 400 mg QPM PO 03/17/17 21:00 04/16/17 20:59 03/22/17 21:15 400 MG Niacin (Niacin Tab) 500 mg BID PO 03/17/17 21:00 04/16/17 20:59 03/23/17 09:35 500 MG Rosuvastatin Calcium (Crestor Tab) 10 mg QPM PO 03/17/17 21:00 04/16/17 20:59 03/22/17 21:15 10 MG Warfarin Sodium (Coumadin Tab) 2.5 mg DAILY@1600 PO 03/17/17 21:00 04/16/17 20:59 Future Hold 03/21/17 16:03 2.5 MG Cyanocobalamin (Vitamin B-12 Tab) 1,000 mcg QAM PO 03/18/17 09:00 04/17/17 08:59 03/23/17 09:33 1,000 MCG Docusate Sodium (coLACE CAP) 100 mg BID PO 03/17/17 21:00 04/16/17 20:59 03/23/17 09:31 100 MG Glucose (Glucose 40% Gel) 15-30 GRAMS 15 GRAMS... UD PRN PO 03/17/17 11:45 04/16/17 11:44 Glucose (Glucose Chew Tab) 4-8 Tablets 4 Tabl... UD PRN PO 03/17/17 11:45 04/16/17 11:44 Dextrose (Dextrose 50% 50ML Syringe) 25-50ML OF 50% DW IV FOR... UD PRN IV 03/17/17 11:45 04/16/17 11:44 Glucagon (Glucagon Inj) 1 mg UD PRN SQ 03/17/17 11:45 04/16/17 11:44 Cholecalciferol (Vitamin D Tab) 2,000 inter.unit QAM PO 03/18/17 09:00 04/17/17 08:59 03/23/17 09:36 2,000 INTER.UNIT Ergocalciferol (Vitamin D Cap) 50,000 interunit Sa@0900 PO 03/19/17 09:00 04/18/17 08:59 03/19/17 08:46 50,000 INTERUNIT Tamsulosin HCl (Flomax Cap) 0.4 mg BID PO 03/19/17 21:00 04/16/17 09:29 03/23/17 09:32 0.4 MG Insulin Aspart (novoLOG ASPART) SLIDING SCALE If C... ACHS SC 03/20/17 12:00 04/19/17 11:59 03/23/17 09:39 4 UNITS Atenolol (Tenormin Tab) 12.5 mg QAM PO 03/22/17 09:00 04/21/17 08:59 03/23/17 09:34 12.5 MG Polyethylene (Miralax Powder Packet) 17 gm BID PO 03/21/17 21:00 04/19/17 08:59 03/23/17 09:33 17 GM Oxycodone HCl (Roxicodone Immediate Rel Tab) 1 TABLET FOR PAIN RATING... Q4H PRN PO 03/22/17 14:15 04/05/17 14:14 Magnesium Hydroxide (Milk Of Magnesia Susp) 30 ml Q6H PRN PO 03/22/17 14:15 04/21/17 14:14 Bisacodyl (Dulcolax Supp) 10 mg DAILY PRN [place] 03/22/17 14:15 04/21/17 14:14 Sodium Biphosphate/ Sodium Phosphate (Fleet Enema) 132 ml DAILY PRN [place] 03/22/17 14:15 04/21/17 14:14 Ondansetron HCl (Zofran Inj) 4 mg Q6H PRN IV 03/22/17 14:15 04/21/17 14:14 Metoclopramide HCl (Reglan Inj) 10 mg Q6H PRN IV 03/22/17 14:15 04/21/17 14:14 Tramadol HCl (Ultram Tab) 1 TABLET FOR PAIN RATING... Q4H PRN PO 03/22/17 14:15 04/21/17 14:14 Hydralazine HCl (HydrALAZINE INJ) 10 mg Q8H PRN IV. 03/22/17 16:30 04/21/17 16:29 (Mago Gaston PA-C) Objective Vital Signs Date Time Temp Pulse Resp B/P (MAP) Pulse Ox O2 Delivery O2 Flow Rate FiO2 03/23/17 11:12 36.8 65 18 152/68 (96) 96 Room Air 03/23/17 09:30 Room Air 03/23/17 07:41 36.6 67 18 129/66 (87) 97 Room Air 03/23/17 03:40 36.8 63 16 111/63 (79) 97 Room Air 03/22/17 23:59 Room Air 03/22/17 22:48 36.9 65 16 122/71 (88) 97 Room Air 03/22/17 19:10 36.6 68 18 107/57 (74) 95 Room Air 03/22/17 17:50 36.5 67 18 155/67 (96) 97 Room Air 03/22/17 16:50 36.6 65 18 132/56 (81) 94 Room Air 03/22/17 15:50 36.5 65 18 147/74 (98) 96 Room Air 03/22/17 15:40 Room Air 03/22/17 15:20 36.5 63 16 145/69 (94) 96 Room Air 03/22/17 14:43 36.4 164/89 03/22/17 14:35 36.3 60 16 175/79 99 Nasal Cannula 2 03/22/17 14:25 62 16 181/78 100 Mask 10 03/22/17 14:15 68 16 192/81 100 Mask 10 03/22/17 14:07 36.3 65 16 189/87 100 Mask 10 03/22/17 13:12 36.6 64 18 159/79 96 Room Air (Murarik, Mago ., PA-C) Physical Exam General Appearance: no apparent distress Eyes: normal inspection, PERRL ENT: hearing grossly normal Neck: supple Respiratory/Chest: lungs clear, no respiratory distress, no accessory muscle use Cardiovascular: regular rate, rhythm, + systolic murmur Abdomen: normal bowel sounds, non tender, soft Extremities: no pedal edema, + pertinent finding (SCDs on) Neurologic/Psychiatric: alert, normal mood/affect, oriented x 3 Skin: normal color, warm/dry, no rash (Mago Gaston, PA-C) Laboratory Results Last 24 Hours Test 03/22/17 11:40 03/22/17 13:17 03/22/17 14:12 03/22/17 17:10 Bedside Glucose 125 mg/dl 150 mg/dl 131 mg/dl 174 mg/dl Test 03/22/17 21:11 03/23/17 07:26 03/23/17 08:15 Bedside Glucose 225 mg/dl 140 mg/dl White Blood Count 8.43 K/uL Red Blood Count 3.66 M/uL Hemoglobin 9.9 g/dL Hematocrit 31.2 % Mean Corpuscular Volume 85.2 fL Mean Corpuscular Hemoglobin 27.0 pg Mean Corpuscular Hemoglobin Concent 31.7 g/dl Platelet Count 238 K/uL Mean Platelet Volume 9.7 fL Neutrophils (%) (Auto) 66.9 % Lymphocytes (%) (Auto) 15.8 % Monocytes (%) (Auto) 15.5 % Eosinophils (%) (Auto) 0.8 % Basophils (%) (Auto) 0.1 % Neutrophils # (Auto) 5.63 K/uL Lymphocytes # (Auto) 1.33 K/uL Monocytes # (Auto) 1.31 K/uL Eosinophils # (Auto) 0.07 K/uL Basophils # (Auto) 0.01 K/uL RDW Standard Deviation 49.1 fL RDW Coefficient of Variation 16.1 % Immature Granulocyte % (Auto) 0.9 % Immature Granulocyte # (Auto) 0.08 K/uL Prothrombin Time 13.4 SECONDS Prothromb Time International Ratio 1.2 Sodium Level 138 mmol/L Potassium Level 4.2 mmol/L Chloride Level 105 mmol/L Carbon Dioxide Level 26 mmol/L Anion Gap 7.0 mmol/L Blood Urea Nitrogen 19 mg/dl Creatinine 0.79 mg/dl Est Creatinine Clear Calc Drug Dose 67.4 ml/min Estimated GFR () 96.9 Estimated GFR (Non- 83.6 BUN/Creatinine Ratio 23.7 Random Glucose 143 mg/dl Calcium Level 8.3 mg/dl Magnesium Level 2.1 mg/dl (Mago Gaston, PAShareeC) Assessment and Plan Patient is an 81 y/o male, with PMHx of CAD s/p CABG x3, a.fib, and T2DM, admitted right ELLEN done by Dr. Hough on 03/17; Complicated by post-op joint dislocation x 2, now s/p closed reduction x 2. s/p right ELLEN on 03/17 and s/p right closed total hip arthroplasty reduction on 03/20 and 03/22: - Pain management, DVT prophylaxis, and PT/OT as per primary team - Vitamin D level low- begin supplement; 50,000 u weekly and 2,000 u daily - Planning for operation on 03/24 to replace hardware CAD with CABG x 3 in '- STABLE/a.fib- rate controlled: - Continue Crestor 20 mg daily, ASA 81 mg daily, and Mag-Ox 400 mg daily - Diltiazem 120 mg HS, Amiodarone 200 mg QAM, Atenolol 12.5 mg daily - Coumadin 2.5 mg HS held pending procedure on 03/24- resume EDGAR postop - Follow PT/INR HTN: - IV Hydralazine PRN - Continue to monitor, may need additional BP medication (ACEi) T2DM- controlled: - BSG ACHS w/ sliding insulin scale - hA1C on 03/04/17= 6.7% Urinary retention postop, likely multifactorial- postop + likely underlying BPH - RESOLVED: - Flomax 0.4 mg daily increased to BID- watch BPs, likely will continue for short term at discharge and f/u w/ PCP - Harman placed 03/18- d/c Harman on 03/20 for void trial; bladder scan and straight cath PRN- NO urinary retention or symptoms reported by patient/nursing staff on 03/23 - Continue to monitor- if symptoms do not resolve, will further workup- note: negative UA on 03/04 Delirium postop 03/17- RESOLVED: Continue to monitor closely given postop x3 and planning for another procedure on 03/24 GI Prophylaxis: Protonix, Maalox PRN, IV Zofran PRN, Colace and/or Milk of Mag PRN, MiraLAX, Colace DVT prophylaxis: GABRIELLE and SCDs, Coumadin held pending orthopedic procedure on 03/24 -- Will discuss with Ortho about SQ anticoagulation x1 on 03/23 Code Status: LEVEL I, FULL Dispo: Discharge as per primary team- likely to [facility] (Mago Gaston, PAЮлия) Reviewed: Pt Seen/Exam by Me (Macry Bustamante MD) History Physician Work Ticket Distributor Supervision Note: I interviewed and examined the patient. Discussed with EMY Gaston and agree with findings and plan as documented in the note. Any exceptions or clarifications are listed here: Pt feeling well today. No complaints Vitals reviewed RRR 2/ JENNIFER at [facility] CTAB no wcr Abd+ BS Soft NT ND Ext in abduction wedge pillow, dressing over rt hip c/d/i 81 yo male here with Rt ELLEN and post-op dislocation of rt hip x 2. On coumadin for 4 days and now held for upcoming repeat surgery -check INR again at 1600 and may give po Vit K if trending upward (despite being held since yesterday, last dose 03/21) -one dose of Lovenox DVT proph dose given today given prolonged immobility, recent surgery, but no more to be given until post-op -discussed case with Agusto QUEVEDO Documented By: Marcy Bustamante (Marcy Bustamante MD) Assessment/Plan Patient is an 81 y/o male, with PMHx of CAD s/p CABG x3, a.fib, and T2DM, admitted right ELLEN done by Dr. Hough on 03/17, complicated by post-op joint dislocation x 2, now s/p closed reduction x 2. Right ELLEN on 03/17 and s/p right closed total hip arthroplasty reduction on 03/20 and again 03/22. Needs repeat ELLEN to change out the socket type on -hold coumadin now in prep for surgery -if INR >1.8 tomorrow, will give Vit K and one dose of Lovenox in AM if ok with Ortho - Pain management,bowel regimen - PT/OT - Vitamin D level low- begin supplement; 50,000 u weekly and 2,000 u daily CAD with CABG x 3 in '95- STABLE/Paroxysmal a.fib-in sinus here on exam/HTN-BPs elevated - Continue Crestor 20 mg daily, ASA 81 mg daily, and Mag-Ox 400 mg daily - Diltiazem 120 mg HS, Amiodarone 200 mg QAM, and Coumadin 2.5 mg HS to be restarted after next surgery - continue Atenolol 12.5 mg daily -add on IV hydralazine prn for improved BP control and post-op may need ACEI - Follow PT/INR T2DM- controlled: - BSG ACHS w/ sliding insulin scale - hA1C on 03/04/17= 6.7% Urinary retention postop, likely multifactorial- postop + likely underlying BPH - RESOLVED: - Flomax 0.4 mg daily increased to BID- watch BPs, likely will continue for short term at discharge and f/u w/ PCP - Harman placed 03/18- d/c Harman on 03/20 for void trial; bladder scan and straight cath PRN- NO urinary retention or symptoms reported by patient/nursing staff on 03/21 - Continue to monitor- if symptoms do not resolve, will further workup- note: negative UA on 03/04 Delirium postop 03/17- RESOLVED but now some again after anesthesia for hip relocation--> observation, supportive care GI Prophylaxis: Protonix, Maalox PRN, IV Zofran PRN, Colace and/or Milk of Mag PRN, MiraLAX, Colace DVT prophylaxis: GABRIELLE and SCDs, holding coumadin today Code Status: LEVEL I, FULL Dispo: to rehab post-op (Marcy Bustamante MD)
[2017-03-23] MEDS ORDERED: ENOXAPARIN 40 MG/0.4 ML SYR SQ ONE (14:00)
--- NOTE | 2017-03-23 15:10 | Orthopedic Progress Note ---
Orthopedic Progress Note Date of Service Mar 23, 2017. Subjective Reports: feeling well, Denies: complaints Additional Notes: Pt lying in bed. Discussed plans for surgery tomorrow with he and his . All questions answered. Objective calves soft nontender, N/V intact, hip located, A&O x3, toes mobile Date Time Temp Pulse Resp B/P (MAP) Pulse Ox O2 Delivery O2 Flow Rate FiO2 03/23/17 11:12 36.8 65 18 152/68 (96) 96 Room Air 03/23/17 09:30 Room Air 03/23/17 07:41 36.6 67 18 129/66 (87) 97 Room Air 03/23/17 03:40 36.8 63 16 111/63 (79) 97 Room Air 03/22/17 23:59 Room Air 03/22/17 22:48 36.9 65 16 122/71 (88) 97 Room Air 03/22/17 19:10 36.6 68 18 107/57 (74) 95 Room Air 03/22/17 17:50 36.5 67 18 155/67 (96) 97 Room Air 03/22/17 16:50 36.6 65 18 132/56 (81) 94 Room Air 03/22/17 15:50 36.5 65 18 147/74 (98) 96 Room Air 03/22/17 15:40 Room Air 03/22/17 15:20 36.5 63 16 145/69 (94) 96 Room Air Laboratory Results 24 Hours: Test 03/23/17 07:26 White Blood Count 8.43 K/uL Red Blood Count 3.66 M/uL Hemoglobin 9.9 g/dL Hematocrit 31.2 % Mean Corpuscular Volume 85.2 fL Mean Corpuscular Hemoglobin 27.0 pg Mean Corpuscular Hemoglobin Concent 31.7 g/dl Platelet Count 238 K/uL Mean Platelet Volume 9.7 fL Neutrophils (%) (Auto) 66.9 % Lymphocytes (%) (Auto) 15.8 % Monocytes (%) (Auto) 15.5 % Eosinophils (%) (Auto) 0.8 % Basophils (%) (Auto) 0.1 % Neutrophils # (Auto) 5.63 K/uL Lymphocytes # (Auto) 1.33 K/uL Monocytes # (Auto) 1.31 K/uL Eosinophils # (Auto) 0.07 K/uL Basophils # (Auto) 0.01 K/uL Prothromb Time International Ratio 1.2 Prothrombin Time 13.4 SECONDS Assessment & Plan Assessment: s/p Right ELLEN with ELLEN dislocation x 2 during this stay. Plan: For OR tomorrow for possible revision acetabular liner/femoral head for repeat dislocations. Inhouse Planning Pain Management: Ultram, PO Tylenol, Oxy IR DVT Prophylaxis: Coumadin, ASA Discharge Planning Discharge Planning: rehab hospital (APPROVAL PENDING FOR [facility])
[2017-03-23 16:22] LABS: INR 1.2 (0.9-1.1); PROTHROMBIN TIME (PATIENT) 12.7 SECONDS (9.0-12.0)
[2017-03-23 16:26] VITALS: BP 131/62; PULSE 67; TEMP 37; O2SAT 94
[2017-03-23] MEDS: MAGNESIUM OXIDE 400 MG TAB PO SCH (20:39)
[2017-03-23] MEDS: DILTIAZEM HCL 120 MG EXT REL CAP PO SCH (20:39)
[2017-03-23] MEDS: ROSUVASTATIN CALCIUM 10 MG TAB PO SCH (20:39)
[2017-03-23 23:04] VITALS: BP 150/71; PULSE 70; TEMP 36.9; O2SAT 94
[2017-03-24] VITALS (7 sets, daily range): BP systolic 125–156; BP diastolic 53–74; PULSE 69–81; TEMP 36.4–37.1; O2SAT 95–100
[2017-03-24] MEDS ORDERED: NURSING VERBAL MED ORDER ONE ×2 (01:45→22:15)
[2017-03-24 05:35] LABS: HEMATOCRIT 32.6 % (42-52); MEAN CELL VOLUME 85.8 fL (80-100); MEAN CORPUSCULAR HEMOGLOBIN 27.1 pg (25-34); MEAN CORPUSCULAR HGB CONC 31.6 g/dl (32-36); MEAN PLATELET VOLUME 9.3 fL (7.4-10.4); PLATELET COUNT 265 K/uL (130-400); WHITE BLOOD COUNT 7.42 K/uL (4.8-10.8)
[2017-03-24 05:51] LABS: CALCIUM 8.4 mg/dl (8.5-10.1); CREATININE 0.82 mg/dl (0.60-1.40); POTASSIUM 4.6 mmol/L (3.5-5.1)
[2017-03-24 05:57] LABS: INR 1.2 (0.9-1.1); PROTHROMBIN TIME (PATIENT) 12.8 SECONDS (9.0-12.0)
[2017-03-24] MEDS: INSULIN ASPART 100 UNITS/ML 3 ML PEN SC SCH ×4 (06:00→22:10)
[2017-03-24] MEDS ORDERED: VANCOMYCIN INJ 1,150 MG in SODIUM CHLORIDE 0.9% 250ML 250 ML IV SCH (06:00)
[2017-03-24] MEDS: ACETAMINOPHEN 500 MG TAB PO SCH ×3 (06:05→22:07)
[2017-03-24] MEDS: CYANOCOBALAMIN 500 MCG TAB (VIT B-12) PO SCH (08:15)
[2017-03-24] MEDS: FERROUS GLUCONATE 324 MG TAB PO SCH ×3 (08:15→18:09)
[2017-03-24] MEDS: DOCUSATE SODIUM 100 MG CAP PO SCH ×2 (08:15→22:04)
[2017-03-24] MEDS: AMIODARONE 200 MG TAB PO SCH (08:16)
[2017-03-24] MEDS: TAMSULOSIN HCL 0.4 MG CAP PO SCH ×2 (08:16→22:08)
[2017-03-24] MEDS: PANTOprazole SOD 40 MG TAB PO SCH (08:16)
[2017-03-24] MEDS: CHOLECALCIFEROL 1000 INTER.UNIT TAB PO SCH (08:17)
[2017-03-24] MEDS: MULTIVITAMIN TAB PO SCH (08:18)
[2017-03-24] MEDS: NIACIN 500 MG TAB IMMEDIATE RELEASE PO SCH ×2 (08:18→22:08)
[2017-03-24] MEDS: POLYETHYLENE (MIRALAX) 17 GM PACK PO SCH ×3 (08:19→22:04)
[2017-03-24] MEDS: PREGABALIN 75 MG CAP PO SCH ×2 (08:26→22:06)
[2017-03-24] MEDS ORDERED: BUPIVACAINE 0.5 % 5 MG/1 ML PF 10ML VIAL ONE (08:47)
--- NOTE | 2017-03-24 10:42 | Hospitalist Progress Note ---
Hospitalist Progress Note Date of Service Mar 24, 2017. (Mago Gaston ., STEPHANIE) Subjective Pt evaluation today including: conversation w/ patient, conversation w/ family (- at bedside ), physical exam, chart review, lab review, review of studies , review of inpatient medication list Voiding: no voiding problems, no incontinence Patient states he is feeling well this AM. NPO for procedure this afternoon. No urinary symptoms. Patient denies any fever, chills, sweats, lightheadedness, dizziness, vision changes, CP, palpitations, edema, SOB, wheezing, cough, abdominal pain, nausea, vomiting, diarrhea, urinary symptoms, melena, numbness/ tingling, weakness, muscle/joint pain, anxiety/depression, active bleeding, or new skin discoloration/changes. (Mago Gaston, SANDRAC) Medications Current Inpatient Medications Medications (Trade) Dose Ordered Sig/Sae Route Start Time Stop Time Status Last Admin Dose Admin Acetaminophen (Tylenol Tab) 1,000 mg Q8H PO 03/17/17 14:00 04/16/17 09:29 03/24/17 06:05 1,000 MG Pregabalin (Lyrica Cap) 75 mg BID PO 03/17/17 21:00 04/16/17 20:59 03/24/17 08:26 75 MG Diphenhydramine HCl (Benadryl Cap) 25 mg Q8H PRN PO 03/17/17 09:30 04/16/17 09:29 Al Hydrox/Mg Hydrox/Simethicone (Maalox Max Susp) 15 ml Q4H PRN PO 03/17/17 09:30 04/16/17 09:29 Zolpidem Tartrate (Ambien Tab) 5 mg HSZ PRN PO 03/17/17 09:30 04/16/17 09:29 Multivitamins (Multivitamin Tab) 1 tab QAM PO 03/18/17 09:00 04/17/17 08:59 03/24/17 08:18 1 TAB Ferrous Gluconate (Ferrous Gluconate Tab) 324 mg TIDM PO 03/17/17 12:30 04/16/17 12:29 03/24/17 08:15 324 MG Pantoprazole Sodium (Protonix Tab) 40 mg QAM PO 03/18/17 09:00 04/17/17 08:59 03/24/17 08:16 40 MG Amiodarone HCl (Cordarone Tab) 200 mg QAM PO 03/18/17 09:00 04/17/17 08:59 03/24/17 08:16 200 MG Diltiazem HCl (TIAzac CAP) 120 mg QPM PO 03/17/17 21:00 04/16/17 20:59 03/23/17 20:39 120 MG Magnesium Oxide (Mag-Ox Tab) 400 mg QPM PO 03/17/17 21:00 04/16/17 20:59 03/23/17 20:39 400 MG Niacin (Niacin Tab) 500 mg BID PO 03/17/17 21:00 04/16/17 20:59 03/24/17 08:18 500 MG Rosuvastatin Calcium (Crestor Tab) 10 mg QPM PO 03/17/17 21:00 04/16/17 20:59 03/23/17 20:39 10 MG Warfarin Sodium (Coumadin Tab) 2.5 mg DAILY@1600 PO 03/17/17 21:00 04/16/17 20:59 Future Hold 03/21/17 16:03 2.5 MG Cyanocobalamin (Vitamin B-12 Tab) 1,000 mcg QAM PO 03/18/17 09:00 04/17/17 08:59 03/24/17 08:15 1,000 MCG Docusate Sodium (coLACE CAP) 100 mg BID PO 03/17/17 21:00 04/16/17 20:59 03/24/17 08:15 100 MG Glucose (Glucose 40% Gel) 15-30 GRAMS 15 GRAMS... UD PRN PO 03/17/17 11:45 04/16/17 11:44 Glucose (Glucose Chew Tab) 4-8 Tablets 4 Tabl... UD PRN PO 03/17/17 11:45 04/16/17 11:44 Dextrose (Dextrose 50% 50ML Syringe) 25-50ML OF 50% DW IV FOR... UD PRN IV 03/17/17 11:45 04/16/17 11:44 Glucagon (Glucagon Inj) 1 mg UD PRN SQ 03/17/17 11:45 04/16/17 11:44 Cholecalciferol (Vitamin D Tab) 2,000 inter.unit QAM PO 03/18/17 09:00 04/17/17 08:59 03/24/17 08:17 2,000 INTER.UNIT Ergocalciferol (Vitamin D Cap) 50,000 interunit Sa@0900 PO 03/19/17 09:00 04/18/17 08:59 03/19/17 08:46 50,000 INTERUNIT Tamsulosin HCl (Flomax Cap) 0.4 mg BID PO 03/19/17 21:00 04/16/17 09:29 03/24/17 08:16 0.4 MG Atenolol (Tenormin Tab) 12.5 mg QAM PO 03/22/17 09:00 04/21/17 08:59 03/24/17 08:17 12.5 MG Polyethylene (Miralax Powder Packet) 17 gm BID PO 03/21/17 21:00 04/19/17 08:59 03/23/17 20:39 17 GM Oxycodone HCl (Roxicodone Immediate Rel Tab) 1 TABLET FOR PAIN RATING... Q4H PRN PO 03/22/17 14:15 04/05/17 14:14 Magnesium Hydroxide (Milk Of Magnesia Susp) 30 ml Q6H PRN PO 03/22/17 14:15 04/21/17 14:14 Bisacodyl (Dulcolax Supp) 10 mg DAILY PRN [place] 03/22/17 14:15 04/21/17 14:14 Sodium Biphosphate/ Sodium Phosphate (Fleet Enema) 132 ml DAILY PRN [place] 03/22/17 14:15 04/21/17 14:14 Ondansetron HCl (Zofran Inj) 4 mg Q6H PRN IV 03/22/17 14:15 04/21/17 14:14 Metoclopramide HCl (Reglan Inj) 10 mg Q6H PRN IV 03/22/17 14:15 04/21/17 14:14 Tramadol HCl (Ultram Tab) 1 TABLET FOR PAIN RATING... Q4H PRN PO 03/22/17 14:15 04/21/17 14:14 Hydralazine HCl (HydrALAZINE INJ) 10 mg Q8H PRN IV. 03/22/17 16:30 04/21/17 16:29 Vancomycin HCl 1150 mg/Sodium Chloride 273 ml @ 125 mls/hr PREOP IV 03/24/17 06:00 03/24/17 15:00 Insulin Aspart (novoLOG ASPART) SLIDING SCALE If C... Q6 SC 03/24/17 06:00 04/23/17 05:59 (Mago Gaston, SANDRAC) Objective Vital Signs Date Time Temp Pulse Resp B/P (MAP) Pulse Ox O2 Delivery O2 Flow Rate FiO2 03/24/17 07:05 36.5 69 16 125/66 (85) 96 Room Air 03/23/17 23:59 Room Air 03/23/17 23:04 36.9 70 16 150/71 (97) 94 Room Air 03/23/17 16:26 37.0 67 16 131/62 (85) 94 Room Air 03/23/17 16:20 Room Air 03/23/17 11:12 36.8 65 18 152/68 (96) 96 Room Air (Mago Gaston, EMY-C) Physical Exam General Appearance: WD/WN, no apparent distress Eyes: normal inspection, PERRL ENT: hearing grossly normal Neck: supple Respiratory/Chest: lungs clear, no respiratory distress, no accessory muscle use Cardiovascular: regular rate, rhythm, + systolic murmur Abdomen: normal bowel sounds, non tender, soft Extremities: no pedal edema, no calf tenderness Neurologic/Psychiatric: alert, normal mood/affect, oriented x 3, + pertinent finding (good bilateral foot sensation; wiggles toes/ ankles w/out difficulty ) Skin: normal color, warm/dry, no rash (Mago Gaston, EMY-C) Laboratory Results Last 24 Hours Test 03/23/17 12:02 03/23/17 16:02 03/23/17 16:59 03/23/17 20:43 Bedside Glucose 158 mg/dl 167 mg/dl 168 mg/dl Prothrombin Time 12.7 SECONDS Prothromb Time International Ratio 1.2 Test 03/24/17 05:20 03/24/17 05:53 White Blood Count 7.42 K/uL Red Blood Count 3.80 M/uL Hemoglobin 10.3 g/dL Hematocrit 32.6 % Mean Corpuscular Volume 85.8 fL Mean Corpuscular Hemoglobin 27.1 pg Mean Corpuscular Hemoglobin Concent 31.6 g/dl RDW Standard Deviation 50.5 fL RDW Coefficient of Variation 16.2 % Platelet Count 265 K/uL Mean Platelet Volume 9.3 fL Prothrombin Time 12.8 SECONDS Prothromb Time International Ratio 1.2 Sodium Level 141 mmol/L Potassium Level 4.6 mmol/L Chloride Level 107 mmol/L Carbon Dioxide Level 28 mmol/L Anion Gap 6.0 mmol/L Blood Urea Nitrogen 18 mg/dl Creatinine 0.82 mg/dl Est Creatinine Clear Calc Drug Dose 65.0 ml/min Estimated GFR () 95.4 Estimated GFR (Non- 82.4 BUN/Creatinine Ratio 22.0 Random Glucose 134 mg/dl Calcium Level 8.4 mg/dl Bedside Glucose 129 mg/dl (Mago Gaston, SANDRAC) Assessment and Plan Patient is an 81 y/o male, with PMHx of CAD s/p CABG x3, a.fib, and T2DM, admitted right ELLEN done by Dr. Hough on 03/17; Complicated by post-op joint dislocation x 2, now s/p closed reduction x 2. s/p right ELLEN on 03/17 and s/p right closed total hip arthroplasty reduction on 03/20 and 03/22: - Pain management, DVT prophylaxis, and PT/OT as per primary team - Vitamin D level low- begin supplement; 50,000 u weekly and 2,000 u daily - Operation on 03/24 to replace hardware -- INR 1.2 on 03/24- no Vitamin K indicated CAD with CABG x 3 in '- STABLE/a.fib- rate controlled: - Continue Crestor 20 mg daily, ASA 81 mg daily, and Mag-Ox 400 mg daily - Diltiazem 120 mg HS, Amiodarone 200 mg QAM, Atenolol 12.5 mg daily - Coumadin 2.5 mg HS held pending procedure on 03/24- resume EDGAR postop -- Will likely start 5 mg postop, when OK by ortho, due to continued subtherapeutic INR on 2.5 mg - Follow PT/INR HTN: - IV Hydralazine PRN - Continue to monitor, may need additional BP medication (ACEi) T2DM- controlled: - BSG ACHS w/ sliding insulin scale - hA1C on 5/19/17= 6.7% Urinary retention postop, likely multifactorial- postop + likely underlying BPH - RESOLVED: - Flomax 0.4 mg daily increased to BID- watch BPs, likely will continue for short term at discharge and f/u w/ PCP - Harman placed 03/18- d/c Harman on 03/20 for void trial; bladder scan and straight cath PRN- NO urinary retention or symptoms reported by patient/nursing staff on 03/24 - Continue to monitor- if symptoms do not resolve, will further workup- note: negative UA on 03/04 Delirium postop 03/17- RESOLVED: Continue to monitor closely given postop x3 and planning for another procedure on 03/24 GI Prophylaxis: Protonix, Maalox PRN, IV Zofran PRN, Colace and/or Milk of Mag PRN, MiraLAX, Colace DVT prophylaxis: GABRIELLE and SCDs, Coumadin held pending orthopedic procedure on 03/24 -- Given Lovenox 40 mg SQ x1 on 03/23 due to subtherapeutic INR, inactivity, and h/o a.fib- discussed and OK w/ Dr. 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 Discussed with EMY Gaston and agree with findings and plan as documented in the note. Any exceptions or clarifications are listed here: Pt feeling well today. Is now post-op from revision of right hip. A little confused as usual after anesthesia Vitals reviewed RRR 2/6 JENNIFER at [facility] CTAB no wcr Abd+ BS Soft NT ND Ext in abduction wedge pillow, dressing over rt hip c/d/i 81 yo male here with Rt ELLEN and post-op dislocation of rt hip x 2. now with revision of rt ELLEN -pain control, PT/OT -restart coumadin as per Ortho Documented By: Marcy Bustamante (Marcy Bustamante MD)
[2017-03-24] MEDS ORDERED: PROPOFOL IV EMULSION 10 MG/ML 20 ML VIAL IV ONE (10:45)
[2017-03-24] MEDS ORDERED: MIDAZOLAM HCL 1 MG/ML 2ML VIAL ONE (10:45)
[2017-03-24] MEDS ORDERED: LIDOCAINE HCL 2% 2 ML VIAL (20MG/ML) ONE (10:45)
[2017-03-24] MEDS ORDERED: BACITRACIN 50000 UNIT VIAL ONE (11:51)
[2017-03-24] MEDS ORDERED: ATROPINE SULFATE 0.1 MG/ML 5ML SYR IV PRN (13:00)
[2017-03-24] MEDS ORDERED: ONDANSETRON INJ 2 MG/ML 2 ML VIAL IV PRN (13:00)
[2017-03-24] MEDS ORDERED: HYDROmorphone INJ 2 MG/ML SYR/VIAL IV PRN (13:00)
[2017-03-24] MEDS ORDERED: LABETALOL HCL IV 5 MG/ML 20ML IV PRN (13:00)
--- NOTE | 2017-03-24 14:53 | OPERATIVE REPORT ---
DATE OF OPERATION: 03/24/2017 PREOPERATIVE DIAGNOSIS: Recurrent instability, right total hip. POSTOPERATIVE DIAGNOSIS: Same. PROCEDURE: Revision right total hip to a constrained acetabulum. SURGEON: Dr. Hough. SCALE TESTER: Agusto Short PA-C. ANESTHESIA: Spinal. COMPLICATIONS: None. OPERATION AND FINDINGS: Following induction of adequate spinal anesthesia, the patient was placed in left lateral decubitus position and right previous incision was reopened after prepping and draping him in the usual sterile manner. Fascia was incised through the previous sutures and all suture remnants were removed. A large hematoma was evacuated. The hip was tested and was found to dislocate at 90 degrees of flexion with 45 degrees of internal rotation and decision was made to revise this to a constrained acetabulum. The femoral head was disimpacted and the entire femoral stem came with and there was no damage to the bone. Next, attention was turned to the liner, which was easily removed using a curved osteotome and a mallet. The hip was thoroughly irrigated with pulsatile irrigation. The acetabulum was inspected and was found to be well seated. It was dried and a size E Ideal constrained liner was placed. A fresh size 4 femoral stem was obtained and a +0 x 22 mm cobalt chrome head was impacted into position with the stem seating the femoral component fully and stablely. The hip was reduced and stable liner no longer had a tendency to dislocate and the wound was irrigated and Hemovac drain was placed. Fascia was closed using #1 Vicryl, subcutaneous tissue was closed using 0 Dexon, skin was closed with stephanie. A Prevena drain dressing was applied. The patient tolerated the procedure well. I attest to the content of the Intraoperative Record and any orders documented therein. Any exception s are noted below.
--- NOTE | 2017-03-24 15:08 | Anesthesiology Progress Note ---
Anesthesia Post Op Note Date & Time Mar 24, 2017 at 15:09 Vital Signs Pain Intensity: 0 Vital Signs Past 12 Hours Date Time Temp Pulse Resp B/P (MAP) Pulse Ox O2 Delivery O2 Flow Rate FiO2 03/24/17 15:00 75 21 156/67 100 Nasal Cannula 2 03/24/17 14:50 70 19 151/86 100 Mask 10 03/24/17 14:40 71 18 154/68 100 Mask 10 03/24/17 14:34 36.4 72 17 150/62 100 Mask 10 03/24/17 13:40 Room Air 03/24/17 11:30 36.8 59 16 122/58 (79) 97 Room Air 03/24/17 07:05 36.5 69 16 125/66 (85) 96 Room Air Notes Mental Status: alert / awake / arousable, participated in evaluation Pt Amnestic to Procedure: Yes Nausea / Vomiting: adequately controlled Pain: adequately controlled Airway Patency, RR, SpO2: stable & adequate BP & HR: stable & adequate Hydration State: stable & adequate Anesthetic Complications: no major complications apparent
--- NOTE | 2017-03-24 16:36 | DIAGNOSTIC IMAGING REPORT ---
PELVIS/UNILATERAL HIP 1 VIEW CLINICAL HISTORY: post-op ELLEN revision RIGHT hip revision COMPARISON: None. DISCUSSION: Pre-existing total left hip arthroplasty. Evidence for revision of right hip arthroplasty. Alignment is anatomic. Expected soft tissue postoperative change. IMPRESSION: Anatomic alignment status post right hip revision Electronically signed by: Rizwan Terrazas M.D. 03/24/2017 4:34 PM Dictated Date/Time: 03/24/2017 4:33 PM
[2017-03-24] MEDS: MAGNESIUM OXIDE 400 MG TAB PO SCH (22:06)
[2017-03-24] MEDS: DILTIAZEM HCL 120 MG EXT REL CAP PO SCH (22:08)
[2017-03-24] MEDS: ROSUVASTATIN CALCIUM 10 MG TAB PO SCH (22:09)
[2017-03-24] MEDS: VANCOMYCIN INJ 1,000 MG in SODIUM CHLORIDE 0.9% 250ML 250 ML IV SCH (23:36)
[2017-03-25 03:17] VITALS: BP 177/72; PULSE 84; TEMP 37.4; O2SAT 95
[2017-03-25] MEDS: ACETAMINOPHEN 500 MG TAB PO SCH ×2 (05:34→13:15)
[2017-03-25 06:45] VITALS: BP 156/72; PULSE 89; TEMP 36.8; O2SAT 93
[2017-03-25 07:39] LABS: HEMATOCRIT 30.7 % (42-52); MEAN CELL VOLUME 84.8 fL (80-100); MEAN CORPUSCULAR HEMOGLOBIN 27.9 pg (25-34); MEAN CORPUSCULAR HGB CONC 32.9 g/dl (32-36); MEAN PLATELET VOLUME 9.3 fL (7.4-10.4); PLATELET COUNT 288 K/uL (130-400); RED BLOOD COUNT 3.62 M/uL (4.7-6.1); WHITE BLOOD COUNT 12.06 K/uL (4.8-10.8)
[2017-03-25 07:54] LABS: INR 1.2 (0.9-1.1); PROTHROMBIN TIME (PATIENT) 12.8 SECONDS (9.0-12.0)
--- NOTE | 2017-03-25 07:55 | Orthopedic Progress Note ---
Orthopedic Progress Note Date of Service Mar 25, 2017. Subjective Post OP Day: 1 (s/p right ELLEN revision to constrained acetabulum(POD #8 s/p primary ELLEN)) Reports: feeling well (Somewhat confused per NS, able to have coherent conversation with me) Objective N/V intact, dressing C/D/I (Prevena in place), toes mobile Date Time Temp Pulse Resp B/P (MAP) Pulse Ox O2 Delivery O2 Flow Rate FiO2 03/25/17 06:45 36.8 89 18 156/72 (100) 93 Room Air 03/25/17 03:17 37.4 84 16 177/72 (107) 95 Room Air 03/24/17 23:15 Room Air 03/24/17 22:49 37.1 81 16 156/63 (94) 95 Room Air 03/24/17 18:49 36.4 71 15 139/53 (81) 96 Room Air 03/24/17 17:52 36.5 70 16 145/62 (89) 99 Nasal Cannula 2.0 03/24/17 16:39 36.4 70 16 138/68 (91) 100 Nasal Cannula 2.0 03/24/17 16:13 36.4 69 16 127/69 (88) 100 Nasal Cannula 2.0 03/24/17 15:40 98 Nasal Cannula 2.0 03/24/17 15:40 36.5 70 18 137/74 (95) 98 Nasal Cannula 2.0 03/24/17 15:40 99 Nasal Cannula 2.0 03/24/17 15:30 73 18 148/64 99 Nasal Cannula 2 03/24/17 15:20 75 22 149/64 99 Nasal Cannula 2 03/24/17 15:10 36.2 74 19 137/78 100 Nasal Cannula 2 03/24/17 15:00 75 21 156/67 100 Nasal Cannula 2 03/24/17 14:50 70 19 151/86 100 Mask 10 03/24/17 14:40 71 18 154/68 100 Mask 10 03/24/17 14:34 36.4 72 17 150/62 100 Mask 10 03/24/17 13:40 Room Air 03/24/17 11:30 36.8 59 16 122/58 (79) 97 Room Air Laboratory Results 24 Hours: Test 03/25/17 06:54 Hematocrit 30.7 % Hemoglobin 10.1 g/dL Assessment & Plan Assessment: 81 yo male stable POD #1 s/p right ELLEN revision to constrained acetabulum (POD # 8 s/p primary right ELLEN) Plan: 1. Med management 2. DVT prophylaxis- resume Coumadin, SCDs 3. PT/OT 4. D/C planning- [facility] when stable Inhouse Planning Pain Management: Ultram, PO Tylenol, Oxy IR DVT Prophylaxis: Coumadin, ASA Discharge Planning Discharge Planning: rehab hospital (APPROVAL PENDING FOR [facility])
[2017-03-25] MEDS ORDERED: SODIUM CHLORIDE 0.9% 500ML 500 ML IV ONE (08:00)
[2017-03-25] MEDS ORDERED: SODIUM CHLORIDE 0.9% 500ML 500 ML IV SCH (08:00)
[2017-03-25 08:07] LABS: BUN/CREATININE RATIO 17.6 (10-20); CREATININE 0.83 mg/dl (0.60-1.40)
[2017-03-25] MEDS: POLYETHYLENE (MIRALAX) 17 GM PACK PO SCH (08:31)
[2017-03-25] MEDS: FERROUS GLUCONATE 324 MG TAB PO SCH ×3 (08:32→15:54)
[2017-03-25] MEDS: CYANOCOBALAMIN 500 MCG TAB (VIT B-12) PO SCH (08:33)
[2017-03-25] MEDS: DOCUSATE SODIUM 100 MG CAP PO SCH (08:33)
[2017-03-25] MEDS: TAMSULOSIN HCL 0.4 MG CAP PO SCH (08:33)
[2017-03-25] MEDS: MULTIVITAMIN TAB PO SCH (08:34)
[2017-03-25] MEDS: PANTOprazole SOD 40 MG TAB PO SCH (08:34)
[2017-03-25] MEDS: NIACIN 500 MG TAB IMMEDIATE RELEASE PO SCH (08:35)
[2017-03-25] MEDS: AMIODARONE 200 MG TAB PO SCH (08:35)
[2017-03-25] MEDS: PREGABALIN 75 MG CAP PO SCH (08:40)
[2017-03-25] MEDS: CHOLECALCIFEROL 1000 INTER.UNIT TAB PO SCH (08:40)
[2017-03-25] MEDS: INSULIN ASPART 100 UNITS/ML 3 ML PEN SC SCH ×3 (08:47→18:41)
[2017-03-25 09:07] LABS: CALCIUM 8.5 mg/dl (8.5-10.1)
--- NOTE | 2017-03-25 10:17 | Hospitalist Progress Note ---
Hospitalist Progress Note Date of Service Mar 25, 2017. (Mago Gaston ., PA-C) Subjective Pt evaluation today including: conversation w/ patient, conversation w/ family (- at bedside), physical exam, chart review, lab review, review of studies, review of inpatient medication list Voiding: no voiding problems, no incontinence Patient states he is feeling well. He is eating and drinking OK. +flatus postop, no BMs. states he is confused and agitated postop. Patient is alert and oriented x3 (states name, , day, month, procedure dates, place)- experienced postop delirium on 03/17. According to the patient, he is just agitated because he is usually active and can get out of bed on his own, and not being able to is frustrating to him. Per nursing staff, patient is mildly confused. No acute events. On q15 minute checks. (Mago Gaston ., PA-C) Medications Current Inpatient Medications Medications (Trade) Dose Ordered Sig/Sae Route Start Time Stop Time Status Last Admin Dose Admin Acetaminophen (Tylenol Tab) 1,000 mg Q8H PO 03/17/17 14:00 04/16/17 09:29 03/25/17 05:34 1,000 MG Pregabalin (Lyrica Cap) 75 mg BID PO 03/17/17 21:00 04/16/17 20:59 03/25/17 08:40 75 MG Diphenhydramine HCl (Benadryl Cap) 25 mg Q8H PRN PO 03/17/17 09:30 04/16/17 09:29 Al Hydrox/Mg Hydrox/Simethicone (Maalox Max Susp) 15 ml Q4H PRN PO 03/17/17 09:30 04/16/17 09:29 Zolpidem Tartrate (Ambien Tab) 5 mg HSZ PRN PO 03/17/17 09:30 04/16/17 09:29 Multivitamins (Multivitamin Tab) 1 tab QAM PO 03/18/17 09:00 04/17/17 08:59 03/25/17 08:34 1 TAB Ferrous Gluconate (Ferrous Gluconate Tab) 324 mg TIDM PO 03/17/17 12:30 04/16/17 12:29 03/25/17 08:32 324 MG Pantoprazole Sodium (Protonix Tab) 40 mg QAM PO 03/18/17 09:00 04/17/17 08:59 03/25/17 08:34 40 MG Amiodarone HCl (Cordarone Tab) 200 mg QAM PO 03/18/17 09:00 04/17/17 08:59 03/25/17 08:35 200 MG Diltiazem HCl (TIAzac CAP) 120 mg QPM PO 03/17/17 21:00 04/16/17 20:59 03/24/17 22:08 120 MG Magnesium Oxide (Mag-Ox Tab) 400 mg QPM PO 03/17/17 21:00 04/16/17 20:59 03/24/17 22:06 400 MG Niacin (Niacin Tab) 500 mg BID PO 03/17/17 21:00 04/16/17 20:59 03/25/17 08:35 500 MG Rosuvastatin Calcium (Crestor Tab) 10 mg QPM PO 03/17/17 21:00 04/16/17 20:59 03/24/17 22:09 10 MG Warfarin Sodium (Coumadin Tab) 2.5 mg DAILY@1600 PO 03/17/17 21:00 04/16/17 20:59 Future Hold 03/21/17 16:03 2.5 MG Cyanocobalamin (Vitamin B-12 Tab) 1,000 mcg QAM PO 03/18/17 09:00 04/17/17 08:59 03/25/17 08:33 1,000 MCG Docusate Sodium (coLACE CAP) 100 mg BID PO 03/17/17 21:00 04/16/17 20:59 03/25/17 08:33 100 MG Glucose (Glucose 40% Gel) 15-30 GRAMS 15 GRAMS... UD PRN PO 03/17/17 11:45 04/16/17 11:44 Glucose (Glucose Chew Tab) 4-8 Tablets 4 Tabl... UD PRN PO 03/17/17 11:45 04/16/17 11:44 Dextrose (Dextrose 50% 50ML Syringe) 25-50ML OF 50% DW IV FOR... UD PRN IV 03/17/17 11:45 04/16/17 11:44 Glucagon (Glucagon Inj) 1 mg UD PRN SQ 03/17/17 11:45 04/16/17 11:44 Cholecalciferol (Vitamin D Tab) 2,000 inter.unit QAM PO 03/18/17 09:00 04/17/17 08:59 03/24/17 08:17 2,000 INTER.UNIT Ergocalciferol (Vitamin D Cap) 50,000 interunit Sa@0900 PO 03/19/17 09:00 04/18/17 08:59 03/19/17 08:46 50,000 INTERUNIT Tamsulosin HCl (Flomax Cap) 0.4 mg BID PO 03/19/17 21:00 04/16/17 09:29 03/25/17 08:33 0.4 MG Atenolol (Tenormin Tab) 12.5 mg QAM PO 03/22/17 09:00 04/21/17 08:59 03/25/17 08:36 12.5 MG Polyethylene (Miralax Powder Packet) 17 gm BID PO 03/21/17 21:00 04/19/17 08:59 03/25/17 08:31 17 GM Oxycodone HCl (Roxicodone Immediate Rel Tab) 1 TABLET FOR PAIN RATING... Q4H PRN PO 03/22/17 14:15 04/05/17 14:14 Magnesium Hydroxide (Milk Of Magnesia Susp) 30 ml Q6H PRN PO 03/22/17 14:15 04/21/17 14:14 Bisacodyl (Dulcolax Supp) 10 mg DAILY PRN MN 03/22/17 14:15 04/21/17 14:14 Sodium Biphosphate/ Sodium Phosphate (Fleet Enema) 132 ml DAILY PRN MN 03/22/17 14:15 04/21/17 14:14 Ondansetron HCl (Zofran Inj) 4 mg Q6H PRN IV 03/22/17 14:15 04/21/17 14:14 Metoclopramide HCl (Reglan Inj) 10 mg Q6H PRN IV 03/22/17 14:15 04/21/17 14:14 Tramadol HCl (Ultram Tab) 1 TABLET FOR PAIN RATING... Q4H PRN PO 03/22/17 14:15 04/21/17 14:14 Hydralazine HCl (HydrALAZINE INJ) 10 mg Q8H PRN IV. 03/22/17 16:30 04/21/17 16:29 Vancomycin HCl 1000 mg/Sodium Chloride 270 ml @ 125 mls/hr Q12@0000,1200 IV 03/25/17 00:00 03/25/17 14:10 03/24/17 23:36 125 MLS/HR Insulin Aspart (novoLOG ASPART) SLIDING SCALE If C... ACHS SC 03/24/17 22:15 04/23/17 22:14 03/25/17 08:47 4 UNITS (Mago Gaston, STEPHANIE) Objective Vital Signs Date Time Temp Pulse Resp B/P (MAP) Pulse Ox O2 Delivery O2 Flow Rate FiO2 03/25/17 06:45 36.8 89 18 156/72 (100) 93 Room Air 03/25/17 03:17 37.4 84 16 177/72 (107) 95 Room Air 03/24/17 23:15 Room Air 03/24/17 22:49 37.1 81 16 156/63 (94) 95 Room Air 03/24/17 18:49 36.4 71 15 139/53 (81) 96 Room Air 03/24/17 17:52 36.5 70 16 145/62 (89) 99 Nasal Cannula 2.0 03/24/17 16:39 36.4 70 16 138/68 (91) 100 Nasal Cannula 2.0 03/24/17 16:13 36.4 69 16 127/69 (88) 100 Nasal Cannula 2.0 03/24/17 15:40 98 Nasal Cannula 2.0 03/24/17 15:40 36.5 70 18 137/74 (95) 98 Nasal Cannula 2.0 03/24/17 15:40 99 Nasal Cannula 2.0 03/24/17 15:30 73 18 148/64 99 Nasal Cannula 2 03/24/17 15:20 75 22 149/64 99 Nasal Cannula 2 03/24/17 15:10 36.2 74 19 137/78 100 Nasal Cannula 2 03/24/17 15:00 75 21 156/67 100 Nasal Cannula 2 03/24/17 14:50 70 19 151/86 100 Mask 10 03/24/17 14:40 71 18 154/68 100 Mask 10 03/24/17 14:34 36.4 72 17 150/62 100 Mask 10 03/24/17 13:40 Room Air 03/24/17 11:30 36.8 59 16 122/58 (79) 97 Room Air (Mago Gaston PA-C) Physical Exam General Appearance: no apparent distress Eyes: normal inspection, PERRL ENT: hearing grossly normal Neck: supple Respiratory/Chest: lungs clear, no respiratory distress, no accessory muscle use Cardiovascular: regular rate, rhythm, + systolic murmur Abdomen: normal bowel sounds, non tender, soft Extremities: no pedal edema, no calf tenderness Neurologic/Psychiatric: alert, normal mood/affect, oriented x 3, + pertinent finding (good sensation in bilateral feet; wiggles bilateral toes and ankles on command ) Skin: normal color, warm/dry, no rash (Mago Gaston PA-C) Laboratory Results Last 24 Hours Test 03/24/17 11:45 03/24/17 14:59 03/24/17 17:31 03/24/17 21:03 Bedside Glucose 126 mg/dl 147 mg/dl 142 mg/dl 134 mg/dl Test 03/25/17 06:54 03/25/17 07:59 White Blood Count 12.06 K/uL Red Blood Count 3.62 M/uL Hemoglobin 10.1 g/dL Hematocrit 30.7 % Mean Corpuscular Volume 84.8 fL Mean Corpuscular Hemoglobin 27.9 pg Mean Corpuscular Hemoglobin Concent 32.9 g/dl RDW Standard Deviation 49.3 fL RDW Coefficient of Variation 15.9 % Platelet Count 288 K/uL Mean Platelet Volume 9.3 fL Prothrombin Time 12.8 SECONDS Prothromb Time International Ratio 1.2 Sodium Level 139 mmol/L Potassium Level 4.0 mmol/L Chloride Level 103 mmol/L Carbon Dioxide Level 25 mmol/L Anion Gap 11.0 mmol/L Blood Urea Nitrogen 15 mg/dl Creatinine 0.83 mg/dl Est Creatinine Clear Calc Drug Dose 64.2 ml/min Estimated GFR () 95.0 Estimated GFR (Non- 81.9 BUN/Creatinine Ratio 17.6 Random Glucose 157 mg/dl Calcium Level 8.5 mg/dl Bedside Glucose 164 mg/dl (Mago Gaston PA-C) Assessment and Plan Patient is an 81 y/o male, with PMHx of CAD s/p CABG x3, a.fib, and T2DM, admitted right ELLEN done by Dr. Hough on 03/17; Complicated by post-op joint dislocation x 2, now s/p closed reduction x 2. s/p right ELLEN on 03/17 and s/p right closed total hip arthroplasty reduction on 03/20 and 03/22 and s/p right ELLEN revision to constrained acetabulum on 03/24: - Pain management, DVT prophylaxis, and PT/OT as per primary team - H&H stable - Vitamin D level low- begin supplement; 50,000 u weekly and 2,000 u daily CAD with CABG x 3 in - STABLE/a.fib- NSR; rate controlled: - Continue Crestor 20 mg daily, ASA 81 mg daily, and Mag-Ox 400 mg daily - Diltiazem 120 mg HS, Amiodarone 200 mg QAM, Atenolol 12.5 mg daily - Coumadin 2.5 mg HS -- Start 5 mg on 03/25 due to continued subtherapeutic INR on 2.5 mg - Follow PT/INR HTN: - IV Hydralazine PRN - Continue to monitor, may need additional BP medication (ACEi) T2DM- controlled: - BSG ACHS w/ sliding insulin scale - hA1C on 03/04/17= 6.7% Urinary retention postop, likely multifactorial- postop + likely underlying BPH - RESOLVED: - Flomax 0.4 mg daily increased to BID- watch BPs, likely will continue for short term at discharge and f/u w/ PCP - Harman placed 03/18- d/c Harman on 03/20 for void trial; bladder scan and straight cath PRN- NO urinary retention or symptoms reported by patient/nursing staff on 03/24 - Continue to monitor- if symptoms do not resolve, will further workup- note: negative UA on 03/04 Delirium postop 03/25: Continue to monitor closely, q15 minute checks, supportive care GI Prophylaxis: Protonix, Maalox PRN, IV Zofran PRN, Colace and/or Milk of Mag PRN, MiraLAX, Colace DVT prophylaxis: GABRIELLE and SCDs, Coumadin -- Given Lovenox 40 mg SQ x1 on 03/23 due to subtherapeutic INR, inactivity, and h/o a.fib- discussed and OK w/ Dr. Hough Code Status: LEVEL I, FULL Dispo: Discharge as per primary team- likely to [facility] (Mago Gaston, PA-C) Reviewed: Pt Seen/Exam by Me (Marcy Bustamante MD) History Physician Deputy Director Of Finance Supervision Note: I interviewed and examined the patient. Discussed with EMY Gaston and agree with findings and plan as documented in the note. Any exceptions or clarifications are listed here: No longer confused this afternoon, Dorothy po, no CP/SOB, no abd pain, no N/V. No urinary retention. Vitals reviewed RRR 2/6 JENNIFER at [facility] CTAB no wcr Abd+ BS Soft NT ND Ext dressing over rt hip c/d/i, minimal surrounding edema, can dorsiflex and plantarflex feet bilat 81 yo male here with Rt ELLEN and post-op dislocation of rt hip x 2. now with revision of rt ELLEN POD#1 -pain control, PT/OT -restart coumadin at higher dose and follow INR -may need improved BP control, previously bradycardia limited increasing his AV shawn blockers so could add ACEI or amlodipine -can restart ASA 81mg daily too for CAD -not on any home meds for DMII-usually diet controlled Documented By: Marcy Bustamante (Marcy Bustamante MD)
[2017-03-25] MEDS: VANCOMYCIN INJ 1,000 MG in SODIUM CHLORIDE 0.9% 250ML 250 ML IV SCH (12:03)
[2017-03-25] MEDS ORDERED: ASPIRIN 81 MG ECTAB PO ONE (15:30)
[2017-03-25] MEDS: WARFARIN SOD 5 MG TAB PO SCH (15:55)
[2017-03-25] MEDS: MAGNESIUM HYDROXIDE SUSP 30 ML UDC PO PRN (15:57)
[2017-03-25 16:00] VITALS: BP 120/66; PULSE 70; TEMP 36.7; O2SAT 96
[2017-03-25] MEDS ORDERED: LORAZEPAM INJ 0.5 MG in SYRINGE 0.75 ML IV PRN (21:00)
[2017-03-25 23:04] VITALS: BP 160/75; PULSE 91; TEMP 36.8; O2SAT 96
[2017-03-26] MEDS: ACETAMINOPHEN 500 MG TAB PO SCH ×4 (05:38→22:02)
[2017-03-26 07:10] LABS: HEMATOCRIT 32.3 % (42-52); MEAN CELL VOLUME 86.1 fL (80-100); MEAN CORPUSCULAR HGB CONC 32.5 g/dl (32-36); MEAN PLATELET VOLUME 9.1 fL (7.4-10.4); PLATELET COUNT 296 K/uL (130-400); RED BLOOD COUNT 3.75 M/uL (4.7-6.1); WHITE BLOOD COUNT 15.67 K/uL (4.8-10.8)
[2017-03-26 07:17] VITALS: BP 171/73; PULSE 78; TEMP 36.8; O2SAT 94
[2017-03-26 07:17] LABS: INR 1.2 (0.9-1.1); PROTHROMBIN TIME (PATIENT) 13.1 SECONDS (9.0-12.0)
[2017-03-26 07:41] LABS: BUN/CREATININE RATIO 18.8 (10-20); CALCIUM 8.2 mg/dl (8.5-10.1); CREATININE 0.81 mg/dl (0.60-1.40); POTASSIUM 3.6 mmol/L (3.5-5.1)
[2017-03-26] MEDS: PANTOprazole SOD 40 MG TAB PO SCH (08:25)
[2017-03-26] MEDS: MULTIVITAMIN TAB PO SCH (08:25)
[2017-03-26] MEDS: CHOLECALCIFEROL 1000 INTER.UNIT TAB PO SCH (08:25)
[2017-03-26] MEDS: TAMSULOSIN HCL 0.4 MG CAP PO SCH ×3 (08:25→22:13)
[2017-03-26] MEDS: CYANOCOBALAMIN 500 MCG TAB (VIT B-12) PO SCH (08:26)
[2017-03-26] MEDS: DOCUSATE SODIUM 100 MG CAP PO SCH ×3 (08:26→22:04)
[2017-03-26] MEDS: AMIODARONE 200 MG TAB PO SCH (08:26)
[2017-03-26] MEDS: FERROUS GLUCONATE 324 MG TAB PO SCH ×3 (08:27→18:35)
[2017-03-26] MEDS: NIACIN 500 MG TAB IMMEDIATE RELEASE PO SCH ×3 (08:27→22:03)
[2017-03-26] MEDS: ERGOCALCIFEROL 50,000 INTER.UNIT CAP PO SCH (08:28)
[2017-03-26] MEDS: PREGABALIN 75 MG CAP PO SCH ×3 (08:29→22:03)
[2017-03-26] MEDS: POLYETHYLENE (MIRALAX) 17 GM PACK PO SCH ×3 (08:29→22:03)
[2017-03-26] MEDS: ASPIRIN 81 MG ECTAB PO SCH (08:31)
[2017-03-26] MEDS: INSULIN ASPART 100 UNITS/ML 3 ML PEN SC SCH ×5 (08:57→22:07)
--- NOTE | 2017-03-26 10:54 | Hospitalist Progress Note ---
Hospitalist Progress Note Date of Service Mar 26, 2017. Subjective Pt evaluation today including: conversation w/ patient, conversation w/ family Pt more confused today as per and on exam. Forgetting things, agitated at times, confused. He is only putting out small amounts of darker colored urine at a time and having urinary frequency. WBC count up more today.RN reports he has pulled out his wound vac tube several times Constitutional: No fever Respiratory: No cough, No shortness of breath Cardiovascular: No chest pain Abdomen: No pain, No constipation Male : + urinary frequency All Other Systems: Reviewed and Negative Objective Vital Signs Date Time Temp Pulse Resp B/P (MAP) Pulse Ox O2 Delivery O2 Flow Rate FiO2 03/26/17 08:10 Room Air 03/26/17 07:17 36.8 78 17 171/73 (105) 94 Room Air 03/25/17 23:28 Room Air 03/25/17 23:04 36.8 91 18 160/75 (103) 96 Room Air 03/25/17 16:00 Room Air 03/25/17 16:00 36.7 70 18 120/66 (84) 96 Room Air Physical Exam General Appearance: WD/WN, no apparent distress (sitting in chair, answers questions appropriately but then says some things that are off topic) ENT: hearing grossly normal Neck: trachea midline Respiratory/Chest: lungs clear, normal breath sounds, no respiratory distress, no accessory muscle use Cardiovascular: regular rate, rhythm, no gallop, + systolic murmur (2/6 JENNIFER [facility]), + pertinent finding (right leg with 2+ edema and tense calf) Abdomen: normal bowel sounds, non tender, soft Extremities: + pertinent finding (right hip with wound vac in place, right leg as above) Neurologic/Psychiatric: alert, normal mood/affect, + disoriented (oriented to person and place but confused at times) Skin: normal color, warm/dry, no rash Laboratory Results Last 24 Hours Test 03/25/17 12:07 03/25/17 17:12 03/25/17 20:46 03/26/17 06:55 Bedside Glucose 163 mg/dl 175 mg/dl 248 mg/dl White Blood Count 15.67 K/uL Red Blood Count 3.75 M/uL Hemoglobin 10.5 g/dL Hematocrit 32.3 % Mean Corpuscular Volume 86.1 fL Mean Corpuscular Hemoglobin 28.0 pg Mean Corpuscular Hemoglobin Concent 32.5 g/dl RDW Standard Deviation 51.2 fL RDW Coefficient of Variation 16.2 % Platelet Count 296 K/uL Mean Platelet Volume 9.1 fL Prothrombin Time 13.1 SECONDS Prothromb Time International Ratio 1.2 Sodium Level 139 mmol/L Potassium Level 3.6 mmol/L Chloride Level 103 mmol/L Carbon Dioxide Level 26 mmol/L Anion Gap 10.0 mmol/L Blood Urea Nitrogen 15 mg/dl Creatinine 0.81 mg/dl Est Creatinine Clear Calc Drug Dose 65.8 ml/min Estimated GFR () 95.9 Estimated GFR (Non- 82.8 BUN/Creatinine Ratio 18.8 Random Glucose 154 mg/dl Calcium Level 8.2 mg/dl Test 03/26/17 08:38 Bedside Glucose 160 mg/dl Assessment and Plan Patient is an 81 y/o male, with PMHx of CAD s/p CABG x3, a.fib, and T2DM, admitted right ELLEN done by Dr. Hough on 03/17; Complicated by post-op joint dislocation x 2, now s/p closed reduction x 2 and revision of ELLEN. S/p right ELLEN on 03/17 and s/p right closed total hip arthroplasty reduction on 03/20 and 03/22 and s/p right ELLEN revision to constrained acetabulum on 03/24: - Pain management, DVT prophylaxis with coumadin, and PT/OT as per primary team - H&H stable - Vitamin D level low- begin supplement; 50,000 u weekly and 2,000 u daily -pregabalin and tylenol prn pain -check Venous Doppler RLE for increased edema and tense calf, prolonged immobilization and off anticoagulation due to recurrent operations/dislocations Delirium- with urinary retention on bladder scan here and frequency, increased WBC count, could be UTI and from retention--> -place Worley now and check UA and Ur cx -start abx if UA positive -supportive care CAD with CABG x 3 in - STABLE/Parox a.fib- in NSR here/HTN -needs improved BP control, previously bradycardia limited increasing his AV shawn blockers so will add ACEI given h/o DM - restarted ASA 81mg daily - Continue Crestor 20 mg daily, and Mag-Ox 400 mg daily - Diltiazem 120 mg HS, Amiodarone 200 mg QAM, Atenolol 12.5 mg daily - Coumadin 5 mg HS - Follow PT/INR T2DM- controlled:-not on any home meds for DMII-usually diet controlled - BSG ACHS w/ sliding insulin scale - hA1C on 03/04/17= 6.7% Urinary retention postop, likely multifactorial- postop from first surgery had Worley placed, + likely underlying BPH- has returned as above, now causing delirium -continue Flomax 0.4 mg BID -replace Worley today GI Prophylaxis: Protonix, Maalox PRN, IV Zofran PRN, Colace and/or Milk of Mag PRN, MiraLAX, Colace DVT prophylaxis: GABRIELLE and SCDs, Coumadin - Code Status: LEVEL I, FULL Dispo: Discharge as per primary team- likely to [facility] when medically and Ortho stable
[2017-03-26 11:30] LABS: URINE APPEARANCE CLOUDY (CLEAR); URINE BILIRUBIN NEG (NEG); URINE COLOR DK YELLOW; URINE EPITHELIAL CELL AUTO 0-5 /lpf (0-5); URINE NITRITE NEG (NEG); URINE PH 6.5 (4.5-7.5); URINE SPECIFIC GRAVITY 1.019 (1.000-1.030); UROBILINOGEN NEG (NEG)
[2017-03-26] MEDS ORDERED: LISINOPRIL 5 MG TAB PO ONE (11:30)
[2017-03-26 11:36] LABS: MANUAL MICROSCOPIC REQUIRED? NO; REVIEW REQ? NO
--- NOTE | 2017-03-26 11:54 | Orthopedic Progress Note ---
Orthopedic Progress Note Date of Service Mar 26, 2017. Subjective Post OP Day: 2 Reports: pain controlled w PO medications, Denies: chest pain, SOB, nausea / vomiting, light headedness, calf pain Additional Notes: MORE CONFUSED TODAY HAVING SOME URINARY SXS, MEDICINE CHECKING UA/ RICCI PLACED. Objective calves soft nontender, N/V intact, hip located, capillary refill less than 2 sec., dressing C/D/I, toes mobile MORE SWELLING IN LE Date Time Temp Pulse Resp B/P (MAP) Pulse Ox O2 Delivery O2 Flow Rate FiO2 03/26/17 08:10 Room Air 03/26/17 07:17 36.8 78 17 171/73 (105) 94 Room Air 03/25/17 23:28 Room Air 03/25/17 23:04 36.8 91 18 160/75 (103) 96 Room Air 03/25/17 16:00 Room Air 03/25/17 16:00 36.7 70 18 120/66 (84) 96 Room Air Laboratory Results 24 Hours: Test 03/26/17 06:55 Hematocrit 32.3 % Hemoglobin 10.5 g/dL Prothromb Time International Ratio 1.2 Prothrombin Time 13.1 SECONDS Assessment & Plan Assessment: 81 yo male stable POD #2 s/p right ELLEN revision to constrained acetabulum (POD # 8 s/p primary right ELLEN) MORE CONFUSION URINARY SXS Plan: 1. Med management- CHECKIN UA AND VENOUS DOPPLER 2. DVT prophylaxis- resume Coumadin, SCDs 3. PT/OT 4. D/C planning- [facility] when stable Inhouse Planning Pain Management: Ultram, PO Tylenol, Oxy IR DVT Prophylaxis: Coumadin, ASA Discharge Planning Discharge Planning: rehab hospital (APPROVAL PENDING FOR [facility])
[2017-03-26] MEDS ORDERED: SENNA 8.6 MG TAB PO ONE (12:00)
--- NOTE | 2017-03-26 12:08 | DIAGNOSTIC IMAGING REPORT ---
RIGHT LOWER EXTREMITY VENOUS DOPPLER CLINICAL HISTORY: Right lower extremity swelling. Right hip replacement. COMPARISON STUDY: No previous studies for comparison. TECHNIQUE: Sonography of the deep venous system of the right lower extremity was performed. Compression and augmentation were evaluated. FINDINGS: Evaluation was difficult due to suboptimal penetration. Subcutaneous edema was noted. The right common femoral, superficial femoral and popliteal veins were compressible. Augmentation was normal. Flow was shown within the deep calf vessels. IMPRESSION: No evidence of deep venous thrombus within the right lower extremity. Electronically signed by: Sam Crowley M.D. 03/26/2017 12:07 PM Dictated Date/Time: 03/26/2017 12:07 PM
[2017-03-26] MEDS ORDERED: LEVOFLOXACIN / D5W 500 MG in PREMIXED IN D5W 100 ML IV ONE (15:00)
[2017-03-26] MEDS ORDERED: POTASSIUM CHLORIDE 10 MEQ TABCR PO STA (15:18)
[2017-03-26 15:36] VITALS: BP 104/58; PULSE 80; TEMP 36.7; O2SAT 96
[2017-03-26] MEDS: WARFARIN SOD 5 MG TAB PO SCH (16:01)
[2017-03-26] MEDS ORDERED: DILTIAZEM HCL 120 MG EXT REL CAP PO SCH (21:00)
[2017-03-26] MEDS: MAGNESIUM OXIDE 400 MG TAB PO SCH ×2 (22:03)
[2017-03-26] MEDS: ROSUVASTATIN CALCIUM 10 MG TAB PO SCH ×2 (22:04)
[2017-03-26] MEDS: DILTIAZEM HCL 120 MG EXT REL CAP PO SCH ×2 (22:14)
[2017-03-26 22:49] VITALS: BP 122/66; PULSE 88; TEMP 37.5; O2SAT 95
[2017-03-27] MEDS: ACETAMINOPHEN 500 MG TAB PO SCH ×3 (05:55→21:46)
[2017-03-27 06:46] LABS: BASO % 0.1 %; BASO ABS # 0.01 K/uL (0-0.2); COMPLETE YES; EOS % 0.5 %; HEMATOCRIT 29.5 % (42-52); IG% 0.4 %; LYMPH % 7.3 %; MEAN CORPUSCULAR HGB CONC 32.9 g/dl (32-36); MEAN PLATELET VOLUME 9.2 fL (7.4-10.4); MONO % 6.7 %; PLATELET COUNT 305 K/uL (130-400); RED BLOOD COUNT 3.47 M/uL (4.7-6.1); WHITE BLOOD COUNT 16.48 K/uL (4.8-10.8)
[2017-03-27 06:51] LABS: INR 1.4 (0.9-1.1)
[2017-03-27 06:56] VITALS: BP 108/63; PULSE 82; TEMP 36.7; O2SAT 95
[2017-03-27 07:27] LABS: CREATININE 0.69 mg/dl (0.60-1.40); MAGNESIUM 2.2 mg/dl (1.8-2.4); POTASSIUM 3.8 mmol/L (3.5-5.1)
--- NOTE | 2017-03-27 07:53 | Orthopedic Progress Note ---
Orthopedic Progress Note Date of Service Mar 27, 2017. Subjective Post OP Day: 3 Reports: feeling well, pain controlled w PO medications, Denies: complaints, chest pain, SOB, nausea / vomiting, light headedness, calf pain Additional Notes: Venous doppler neg for DVT U/A gram neg bacilli, sensitivities pending. Objective calves soft nontender, N/V intact, capillary refill less than 2 sec., dressing C /D/I, A&O x3, toes mobile Provena in tact. Date Time Temp Pulse Resp B/P (MAP) Pulse Ox O2 Delivery O2 Flow Rate FiO2 03/27/17 07:05 Room Air 03/27/17 06:56 36.7 82 16 108/63 (78) 95 Room Air 03/26/17 23:50 Room Air 03/26/17 22:49 37.5 88 16 122/66 (84) 95 Room Air 03/26/17 16:00 Room Air 03/26/17 15:36 36.7 80 16 104/58 (73) 96 03/26/17 08:10 Room Air Laboratory Results 24 Hours: Test 03/27/17 05:56 White Blood Count 16.48 K/uL Red Blood Count 3.47 M/uL Hemoglobin 9.7 g/dL Hematocrit 29.5 % Mean Corpuscular Volume 85.0 fL Mean Corpuscular Hemoglobin 28.0 pg Mean Corpuscular Hemoglobin Concent 32.9 g/dl Platelet Count 305 K/uL Mean Platelet Volume 9.2 fL Neutrophils (%) (Auto) 85.0 % Lymphocytes (%) (Auto) 7.3 % Monocytes (%) (Auto) 6.7 % Eosinophils (%) (Auto) 0.5 % Basophils (%) (Auto) 0.1 % Neutrophils # (Auto) 14.01 K/uL Lymphocytes # (Auto) 1.20 K/uL Monocytes # (Auto) 1.11 K/uL Eosinophils # (Auto) 0.09 K/uL Basophils # (Auto) 0.01 K/uL Prothromb Time International Ratio 1.4 Prothrombin Time 15.0 SECONDS Assessment & Plan Assessment: 81 yo male stable POD #3 s/p right ELLEN revision to constrained acetabulum (POD # 8 s/p primary right ELLEN) MORE CONFUSION URINARY SXS Plan: 1. Med management- CHECKIN UA AND VENOUS DOPPLER- NEG 2. DVT prophylaxis- resume Coumadin, SCDs 3. PT/OT 4. D/C planning- [facility] when stable, cannot be accepted/ authed until Tuesday. Inhouse Planning Pain Management: Ultram, PO Tylenol, Oxy IR DVT Prophylaxis: Coumadin, ASA Discharge Planning Discharge Planning: rehab hospital (APPROVAL PENDING FOR [facility])
[2017-03-27] MEDS: FERROUS GLUCONATE 324 MG TAB PO SCH ×3 (08:21→18:05)
[2017-03-27] MEDS: ASPIRIN 81 MG ECTAB PO SCH (08:22)
[2017-03-27] MEDS: DOCUSATE SODIUM 100 MG CAP PO SCH ×2 (08:22→21:44)
[2017-03-27] MEDS: AMIODARONE 200 MG TAB PO SCH (08:23)
[2017-03-27] MEDS: CHOLECALCIFEROL 1000 INTER.UNIT TAB PO SCH (08:23)
[2017-03-27] MEDS: CYANOCOBALAMIN 500 MCG TAB (VIT B-12) PO SCH (08:23)
[2017-03-27] MEDS: MULTIVITAMIN TAB PO SCH (08:23)
[2017-03-27] MEDS: LISINOPRIL 5 MG TAB PO SCH (08:24)
[2017-03-27] MEDS: SENNA 8.6 MG TAB PO SCH (08:24)
[2017-03-27] MEDS: PANTOprazole SOD 40 MG TAB PO SCH (08:24)
[2017-03-27] MEDS: NIACIN 500 MG TAB IMMEDIATE RELEASE PO SCH ×2 (08:25→21:44)
[2017-03-27] MEDS: POLYETHYLENE (MIRALAX) 17 GM PACK PO SCH ×2 (08:25→21:44)
[2017-03-27] MEDS: TAMSULOSIN HCL 0.4 MG CAP PO SCH ×2 (08:25→21:44)
[2017-03-27] MEDS: PREGABALIN 75 MG CAP PO SCH ×2 (08:27→21:44)
[2017-03-27] MEDS ORDERED: POTASSIUM CHLORIDE 10 MEQ TABCR PO STA (08:46)
[2017-03-27] MEDS: INSULIN ASPART 100 UNITS/ML 3 ML PEN SC SCH ×4 (08:56→21:50)
--- NOTE | 2017-03-27 10:41 | Hospitalist Progress Note ---
Hospitalist Progress Note Date of Service Mar 27, 2017. Subjective Pt evaluation today including: conversation w/ patient Voiding: nunez catheter in place Much improved today since treating for UTI. Less confused. Still constipated. QTc back to normal today from yesterday. Respiratory: No shortness of breath Cardiovascular: No chest pain Abdomen: + constipation, No pain Neurologic: No memory loss All Other Systems: Reviewed and Negative Objective Vital Signs Date Time Temp Pulse Resp B/P (MAP) Pulse Ox O2 Delivery O2 Flow Rate FiO2 03/27/17 07:05 Room Air 03/27/17 06:56 36.7 82 16 108/63 (78) 95 Room Air 03/26/17 23:50 Room Air 03/26/17 22:49 37.5 88 16 122/66 (84) 95 Room Air 03/26/17 16:00 Room Air 03/26/17 15:36 36.7 80 16 104/58 (73) 96 Physical Exam General Appearance: WD/WN, no apparent distress Eyes: normal inspection, sclerae normal ENT: hearing grossly normal Neck: trachea midline Respiratory/Chest: lungs clear, normal breath sounds, no respiratory distress, no accessory muscle use Cardiovascular: regular rate, rhythm, no edema, no gallop, no murmur Abdomen: normal bowel sounds, non tender, soft, no organomegaly Extremities: non-tender, normal inspection, no pedal edema, no calf tenderness , + pertinent finding (rt hip with wound vac in place) Neurologic/Psychiatric: alert, normal mood/affect, oriented x 3 Skin: normal color, warm/dry, no rash Laboratory Results Last 24 Hours Test 03/26/17 11:05 03/26/17 12:15 03/26/17 16:53 03/26/17 20:41 Urine Color DK YELLOW Urine Appearance CLOUDY Urine pH 6.5 Urine Specific [place] 1.019 Urine Protein NEG Urine Glucose (UA) NEG Urine Ketones TRACE Urine Occult Blood 3+ Urine Nitrite NEG Urine Bilirubin NEG Urine Urobilinogen NEG Urine Leukocyte Esterase MODERATE Urine WBC (Auto) >30 /hpf Urine RBC (Auto) >30 /hpf Urine Hyaline Casts (Auto) 0 /lpf Urine Epithelial Cells (Auto) 0-5 /lpf Urine Bacteria (Auto) 4+ Bedside Glucose 143 mg/dl 162 mg/dl 155 mg/dl Test 03/27/17 05:56 03/27/17 07:43 White Blood Count 16.48 K/uL Red Blood Count 3.47 M/uL Hemoglobin 9.7 g/dL Hematocrit 29.5 % Mean Corpuscular Volume 85.0 fL Mean Corpuscular Hemoglobin 28.0 pg Mean Corpuscular Hemoglobin Concent 32.9 g/dl Platelet Count 305 K/uL Mean Platelet Volume 9.2 fL Neutrophils (%) (Auto) 85.0 % Lymphocytes (%) (Auto) 7.3 % Monocytes (%) (Auto) 6.7 % Eosinophils (%) (Auto) 0.5 % Basophils (%) (Auto) 0.1 % Neutrophils # (Auto) 14.01 K/uL Lymphocytes # (Auto) 1.20 K/uL Monocytes # (Auto) 1.11 K/uL Eosinophils # (Auto) 0.09 K/uL Basophils # (Auto) 0.01 K/uL RDW Standard Deviation 50.6 fL RDW Coefficient of Variation 16.4 % Immature Granulocyte % (Auto) 0.4 % Immature Granulocyte # (Auto) 0.06 K/uL Prothrombin Time 15.0 SECONDS Prothromb Time International Ratio 1.4 Sodium Level 140 mmol/L Potassium Level 3.8 mmol/L Chloride Level 105 mmol/L Carbon Dioxide Level 25 mmol/L Anion Gap 10.0 mmol/L Blood Urea Nitrogen 13 mg/dl Creatinine 0.69 mg/dl Est Creatinine Clear Calc Drug Dose 77.2 ml/min Estimated GFR () 102.5 Estimated GFR (Non- 88.4 BUN/Creatinine Ratio 19.0 Random Glucose 136 mg/dl Calcium Level 8.0 mg/dl Magnesium Level 2.2 mg/dl Bedside Glucose 148 mg/dl Assessment and Plan Patient is an 81 y/o male, with PMHx of CAD s/p CABG x3, a.fib, and T2DM, admitted right ELLEN done by Dr. Hough on 03/17; Complicated by post-op joint dislocation x 2, now s/p closed reduction x 2 and revision of ELLEN. S/p right ELLEN on 03/17 and s/p right closed total hip arthroplasty reduction on 03/20 and 03/22 and s/p right ELLEN revision to constrained acetabulum on 03/24: Venous Doppler RLE for increased edema and tense calf-> neg for DVT on 03/26 - Pain management, DVT prophylaxis with coumadin, and PT/OT as per primary team - H&H stable - Vitamin D level low- begin supplement; 50,000 u weekly and 2,000 u daily -pregabalin and tylenol prn pain Delirium- with urinary retention on bladder scan here and frequency, increased WBC count,grossly abnl UA-->UTI -all much improved today after starting Levaquin for UTI Growing GNRs on Ur cx. PCN allergic, SUlfa allergic. Prolonged QT on ECG but now normal after replacing lytes. Safe to continue Levaquin at renal dose -continue Nunez -f/u final Urine cx result -continue Levaquin 250mg IV daily, will need 10 days therapy -follow ECG in AM for QT given possible prolonged QT with Levaquin + Amiodarone CAD with CABG x 3 in - STABLE/Parox a.fib- in NSR here/HTN- BPs much improved control now with addition of lisinopril. INR finally trending up on increased dose of coumadin--> 1.4 -continue lisinopril 5mg daily - continue ASA 81mg daily - Continue Crestor 20 mg daily, and Mag-Ox 400 mg daily - Diltiazem 120 mg HS, Amiodarone 200 mg QAM, Atenolol 12.5 mg daily - Coumadin 5 mg HS - Follow PT/INR T2DM- controlled:-not on any home meds for DMII-usually diet controlled - BSG ACHS w/ sliding insulin scale - hA1C on 03/04/17= 6.7% Urinary retention postop, likely multifactorial- postop from first surgery had Nunez placed, + likely underlying BPH- has returned as above, now causing delirium which is improved -continue Flomax 0.4 mg BID -continue Nunez x 1 week, work on bowel regimen and voiding trial at [facility] Constipation-minimal BMs whole hospital stay -continue senns, docusate -continue Miralax -give Biscodyl suppos and possibly Fleets enema today GI Prophylaxis: Protonix, Maalox PRN, IV Zofran PRN, Colace and/or Milk of Mag PRN, MiraLAX, Colace DVT prophylaxis: GABRIELLE and SCDs, Coumadin - Code Status: LEVEL I, FULL Dispo: Discharge as per primary team- likely to [facility] when medically and Ortho stable
[2017-03-27] MEDS: MAGNESIUM HYDROXIDE SUSP 30 ML UDC PO PRN (12:42)
[2017-03-27] MEDS: LEVOFLOXACIN / D5W 250 MG in PREMIXED IN D5W 50 ML IV SCH (13:38)
[2017-03-27] MEDS ORDERED: LEVOFLOXACIN 250MG / D5W IV SCH (14:00)
[2017-03-27 14:56] VITALS: BP 136/54; PULSE 71; TEMP 36.4; O2SAT 94
[2017-03-27] MEDS: WARFARIN SOD 5 MG TAB PO SCH (16:37)
[2017-03-27] MEDS: MAGNESIUM OXIDE 400 MG TAB PO SCH (21:44)
[2017-03-27] MEDS: ROSUVASTATIN CALCIUM 10 MG TAB PO SCH (21:44)
[2017-03-27] MEDS: DILTIAZEM HCL 120 MG EXT REL CAP PO SCH (21:47)
[2017-03-27 23:25] VITALS: BP 143/98; PULSE 81; TEMP 37.2; O2SAT 96
[2017-03-28] MEDS: ACETAMINOPHEN 500 MG TAB PO SCH ×2 (05:34→13:35)
[2017-03-28 06:10] LABS: HEMATOCRIT 29.5 % (42-52); MEAN CELL VOLUME 86.5 fL (80-100); MEAN CORPUSCULAR HEMOGLOBIN 27.6 pg (25-34); MEAN CORPUSCULAR HGB CONC 31.9 g/dl (32-36); PLATELET COUNT 307 K/uL (130-400); RED BLOOD COUNT 3.41 M/uL (4.7-6.1); WHITE BLOOD COUNT 16.53 K/uL (4.8-10.8)
[2017-03-28 06:18] LABS: INR 1.6 (0.9-1.1); PROTHROMBIN TIME (PATIENT) 17.7 SECONDS (9.0-12.0)
[2017-03-28 06:39] LABS: BASO % 0.1 %; BASO ABS # 0.01 K/uL (0-0.2); COMPLETE YES; EOS % 0.7 %; IG% 0.4 %; LYMPH % 6.7 %; LYMPH ABS # 1.11 K/uL (1.2-3.4); MONO % 5.8 %; NEUT % 86.3 %; POLYCHROMASIA 1+
[2017-03-28 06:42] LABS: BUN/CREATININE RATIO 19.3 (10-20); CALCIUM 7.9 mg/dl (8.5-10.1); CREATININE 0.79 mg/dl (0.60-1.40); MAGNESIUM 2.4 mg/dl (1.8-2.4); POTASSIUM 3.9 mmol/L (3.5-5.1)
[2017-03-28 07:02] VITALS: BP 122/53; PULSE 77; TEMP 36.7; O2SAT 94
--- NOTE | 2017-03-28 07:59 | Orthopedic Progress Note ---
Orthopedic Progress Note Date of Service Mar 28, 2017. Subjective Reports: feeling well, Denies: complaints, chest pain, SOB, nausea / vomiting, light headedness, calf pain Additional Notes: Pt awake, alert. Answering questions appropriately. No complaints. States he had a BM last night. Objective calves soft nontender, N/V intact, hip located, dressing C/D/I, A&O x3, toes mobile Date Time Temp Pulse Resp B/P (MAP) Pulse Ox O2 Delivery O2 Flow Rate FiO2 03/28/17 07:15 Room Air 03/28/17 07:02 36.7 77 17 122/53 (76) 94 Room Air 03/27/17 23:25 37.2 81 16 143/98 (113) 96 Room Air 03/27/17 23:15 Room Air 03/27/17 16:15 Room Air 03/27/17 14:56 36.4 71 16 136/54 (81) 94 Room Air Laboratory Results 24 Hours: Test 03/28/17 05:46 White Blood Count 16.53 K/uL Red Blood Count 3.41 M/uL Hemoglobin 9.4 g/dL Hematocrit 29.5 % Mean Corpuscular Volume 86.5 fL Mean Corpuscular Hemoglobin 27.6 pg Mean Corpuscular Hemoglobin Concent 31.9 g/dl Platelet Count 307 K/uL Mean Platelet Volume 9.0 fL Neutrophils (%) (Auto) 86.3 % Lymphocytes (%) (Auto) 6.7 % Monocytes (%) (Auto) 5.8 % Eosinophils (%) (Auto) 0.7 % Basophils (%) (Auto) 0.1 % Neutrophils # (Auto) 14.27 K/uL Lymphocytes # (Auto) 1.11 K/uL Monocytes # (Auto) 0.96 K/uL Eosinophils # (Auto) 0.11 K/uL Basophils # (Auto) 0.01 K/uL Prothromb Time International Ratio 1.6 Prothrombin Time 17.7 SECONDS Assessment & Plan Assessment: 81 yo male stable POD #4 s/p right ELLEN revision to constrained acetabulum (POD # 9 s/p primary right ELLEN) Confusion UTI Plan: Med management- UTI DVT prophylaxis- resume Coumadin, SCDs PT/OT D/C planning- [facility] when stable; Will need authorization. Confusion seems to resolving Inhouse Planning Pain Management: Ultram, PO Tylenol, Oxy IR DVT Prophylaxis: Coumadin, ASA Discharge Planning Discharge Planning: rehab hospital (APPROVAL PENDING FOR [facility])
--- NOTE | 2017-03-28 08:05 | Hospitalist Progress Note ---
Hospitalist Progress Note Date of Service Mar 28, 2017. Subjective Pt evaluation today including: conversation w/ patient, physical exam, chart review, lab review, review of studies Pain: None PO Intake: Good Voiding: nunez catheter in place The patient was seen and examined this morning. Pt reports doing well- he doesn' t have any pain, no discomfort with the hip. He walked with PT/OT yesterday to the doorway and back to bed, and did well with this too. The most difficulty he had was getting in and out of bed. He had a BM at 0200 last night. He still has a nunez catheter in place and is asking for removal if possible. Pt was informed of results of UTI, being klebsiella and that he will be on antibiotics at the time of discharge. Constitutional: No fever, No chills, No sweats Eyes: No redness, No diplopia ENT: No nasal symptoms, No dental problems, No trouble swallowing Respiratory: No cough, No sputum, No shortness of breath, No dyspnea at rest Cardiovascular: No chest pain, No orthopnea Abdomen: No pain, No nausea, No vomiting, No diarrhea, No constipation Musculoskeletal: No joint pain, No muscle pain, No swelling Male : No dysuria Neurologic: No weakness, No numbness/tingling Psychiatric: No anxiety, No insomnia Endo: No fatigue Skin: No rash, No itch Objective Vital Signs Date Time Temp Pulse Resp B/P (MAP) Pulse Ox O2 Delivery O2 Flow Rate FiO2 03/28/17 07:15 Room Air 03/28/17 07:02 36.7 77 17 122/53 (76) 94 Room Air 03/27/17 23:25 37.2 81 16 143/98 (113) 96 Room Air 03/27/17 23:15 Room Air 03/27/17 16:15 Room Air 03/27/17 14:56 36.4 71 16 136/54 (81) 94 Room Air Physical Exam General Appearance: WD/WN, no apparent distress Eyes: PERRL, EOMI ENT: hearing grossly normal, pharynx normal Neck: supple, no JVD Respiratory/Chest: lungs clear, normal breath sounds, no respiratory distress, no accessory muscle use Cardiovascular: regular rate, rhythm, + systolic murmur Abdomen: normal bowel sounds, non tender, soft, no pulsatile mass Extremities: non-tender, no pedal edema, no calf tenderness, + pertinent finding (R hip dressing is c/d/i) 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, alert, oriented x 3 Skin: normal color, warm/dry Laboratory Results Last 24 Hours Test 03/27/17 11:42 03/27/17 16:48 03/27/17 20:36 03/28/17 05:46 Bedside Glucose 137 mg/dl 173 mg/dl 173 mg/dl White Blood Count 16.53 K/uL Red Blood Count 3.41 M/uL Hemoglobin 9.4 g/dL Hematocrit 29.5 % Mean Corpuscular Volume 86.5 fL Mean Corpuscular Hemoglobin 27.6 pg Mean Corpuscular Hemoglobin Concent 31.9 g/dl Platelet Count 307 K/uL Mean Platelet Volume 9.0 fL Neutrophils (%) (Auto) 86.3 % Lymphocytes (%) (Auto) 6.7 % Monocytes (%) (Auto) 5.8 % Eosinophils (%) (Auto) 0.7 % Basophils (%) (Auto) 0.1 % Neutrophils # (Auto) 14.27 K/uL Lymphocytes # (Auto) 1.11 K/uL Monocytes # (Auto) 0.96 K/uL Eosinophils # (Auto) 0.11 K/uL Basophils # (Auto) 0.01 K/uL RDW Standard Deviation 52.5 fL RDW Coefficient of Variation 16.5 % Immature Granulocyte % (Auto) 0.4 % Immature Granulocyte # (Auto) 0.07 K/uL Polychromasia 1+ Prothrombin Time 17.7 SECONDS Prothromb Time International Ratio 1.6 Sodium Level 141 mmol/L Potassium Level 3.9 mmol/L Chloride Level 104 mmol/L Carbon Dioxide Level 26 mmol/L Anion Gap 11.0 mmol/L Blood Urea Nitrogen 15 mg/dl Creatinine 0.79 mg/dl Est Creatinine Clear Calc Drug Dose 67.4 ml/min Estimated GFR () 96.9 Estimated GFR (Non- 83.6 BUN/Creatinine Ratio 19.3 Random Glucose 135 mg/dl Calcium Level 7.9 mg/dl Magnesium Level 2.4 mg/dl Assessment and Plan 81 y/o male, with PMHx of CAD s/p CABG x3, a.fib, and T2DM, admitted right ELLEN done by Dr. Hough on 6/1; Complicated by post-op joint dislocation x 2, now s/ p closed reduction x 2 and revision of ELLEN. S/p right ELLEN on 03/17 and s/p right closed total hip arthroplasty reduction on 03/20 and 03/22 and s/p right ELLEN revision to constrained acetabulum on 03/24: Venous Doppler RLE for increased edema and tense calf-> neg for DVT on 03/26 - Pain management, DVT prophylaxis with coumadin, and PT/OT as per primary team - H&H stable - Cont Vit D supplement started during this admit 50,000 u weekly and 2,000 u daily - pregabalin and tylenol prn pain Delirium- worsened in the setting of Klebsiella Pneumonia UTI - Cont levaquin day #3, x 10 days total - continue Nunez for now with hx of retention, - EKG repeat with QTc-454, monitor for prolonged QT with Levaquin + Amiodarone Urinary retention postop, likely multifactorial- postop from first surgery had Nunez placed, + likely underlying BPH- has returned as above, now causing delirium which is improved -continue Flomax 0.4 mg BID -continue Nunez x 1 week, work on bowel regimen and voiding trial at [facility] CAD with CABG x 3 Paroxsysmal Afib- in NSR Hypertension - BPs much improved control now with addition of lisinopril. - continue lisinopril 5mg daily - continue ASA 81mg daily - Continue Crestor 20 mg daily, and Mag-Ox 400 mg daily - Diltiazem 120 mg HS, Amiodarone 200 mg QAM, Atenolol 12.5 mg daily - Coumadin 5 mg HS, INR --> 1.4 T2DM- controlled:-not on any home meds for DMII-usually diet controlled - ISS with accuchecks achs - hA1C on 03/04/17= 6.7 Constipation - continue mirilax, senna, and docusate PO. Ducolax supp prn DVT ppx: GABRIELLE and SCDs, Coumadin - Code Status: FULL CODE Dispo: Discharge as per primary team- planned to [facility] pending insurance auth - Will need levaquin x 7 more days - Cont nunez at time of d/c with void trial at [facility]
[2017-03-28] MEDS: CHOLECALCIFEROL 1000 INTER.UNIT TAB PO SCH (08:34)
[2017-03-28] MEDS: SENNA 8.6 MG TAB PO SCH (08:34)
[2017-03-28] MEDS: LISINOPRIL 5 MG TAB PO SCH (08:35)
[2017-03-28] MEDS: AMIODARONE 200 MG TAB PO SCH (08:36)
[2017-03-28] MEDS: TAMSULOSIN HCL 0.4 MG CAP PO SCH (08:36)
[2017-03-28] MEDS: MULTIVITAMIN TAB PO SCH (08:36)
[2017-03-28] MEDS: NIACIN 500 MG TAB IMMEDIATE RELEASE PO SCH (08:37)
[2017-03-28] MEDS: ASPIRIN 81 MG ECTAB PO SCH (08:37)
[2017-03-28] MEDS: CYANOCOBALAMIN 500 MCG TAB (VIT B-12) PO SCH (08:37)
[2017-03-28] MEDS: PANTOprazole SOD 40 MG TAB PO SCH (08:38)
[2017-03-28] MEDS: FERROUS GLUCONATE 324 MG TAB PO SCH ×3 (08:38→17:58)
[2017-03-28] MEDS: POLYETHYLENE (MIRALAX) 17 GM PACK PO SCH (08:39)
[2017-03-28] MEDS: DOCUSATE SODIUM 100 MG CAP PO SCH (08:39)
[2017-03-28] MEDS: PREGABALIN 75 MG CAP PO SCH (08:43)
[2017-03-28] MEDS: INSULIN ASPART 100 UNITS/ML 3 ML PEN SC SCH ×3 (08:49→18:00)
[2017-03-28 13:30] VITALS: BP 88/46
[2017-03-28] MEDS: LEVOFLOXACIN / D5W 250 MG in PREMIXED IN D5W 50 ML IV SCH (13:35)
[2017-03-28] MEDS: WARFARIN SOD 5 MG TAB PO SCH (15:36)
[2017-03-28 16:10] VITALS: BP 120/64; PULSE 72; TEMP 36.8; O2SAT 93
[2017-03-28] MEDS ORDERED: SNK PO (16:27)
[2017-03-28] MEDS ORDERED: VTMD1000 PO (16:27)
[2017-03-28] MEDS ORDERED: CMD5 PO (16:27)
[2017-03-28] MEDS ORDERED: NVLGIPEN SC (16:27)
[2017-03-28] MEDS ORDERED: LSN5 PO (16:27)
[2017-03-28] MEDS ORDERED: MRLP17 PO (16:27)
[2017-03-28] MEDS ORDERED: FLM4 PO (16:27)
[2017-03-28] MEDS ORDERED: LVQ250 PO (16:31)
--- NOTE | 2017-03-28 16:35 | Discharge Summary ---
Discharge Summary Date of Service Mar 28, 2017. Discharge Summary Admission Date: Mar 17, 2017 at 07:30 Discharge Date: Mar 28, 2017 Discharge Disposition: Rehab Principal Diagnosis: hip fracture, catheter associated UTI Immunizations: Have You Had Influenza Vaccine: Yes History of Tetanus Vaccine?: Yes History of Pneumococcal: Yes History of Hepatitis B Vaccine: No Medication Reconciliation New Medications: Levofloxacin (Levofloxacin) 250 Mg Tab 1 TAB PO DAILY, #7 DOSE Acetaminophen (Tylenol Extra Strength) 500 Mg Tab 1000 MG PO Q8H for 30 Days, #180 TAB Cholecalciferol (Vitamin D3) 1,000 Inter.unit Tab 2000 INTER.UNIT PO QAM, #30 TAB Insulin Aspart (Novolog Flexpen) 100 Units/Ml Inj 0 UNITS SC ACHS, #1 PEN Lisinopril (Lisinopril) 5 Mg Tab 5 MG PO QAM, #90 TAB Oxycodone HCl (Oxycodone HCl) 5 Mg Tab 5-10 MG PO Q4H PRN for Pain, #60 TAB Polyethylene (Miralax) 17 Gm Pow 17 GM PO BID, #60 DOSE Senna (Senna Lax) 8.6 Mg Tab 8.6 MG PO QAM, #30 TAB Tamsulosin HCl (Tamsulosin HCl) 0.4 Mg Cap 0.4 MG PO BID, #60 CAP Warfarin Sod (Coumadin) 5 Mg Tab 5 MG PO DAILY@16, #100 TAB needs to be adjusted to have therapeutic INR Continued Medications: Amiodarone Hcl (Pacerone) 200 Mg Tab 200 MG PO QAM, TAB Aspirin (Aspirin Ec) 81 Mg Tab 81 MG PO QAM Atenolol (Tenormin) 25 Mg Tab 12.5 MG PO QAM, 0 Refills Cyanocobalamin (Vitamin B 12) 250 Mcg Estephania 1000 MCG PO QAM Diltiazem Hcl Ext Rel (Tiazac) 120 Mg Capcr 120 MG PO QPM, CAP Magnesium Oxide (Mag-Ox) 400 Mg Tab 400 MG PO QPM, TAB Niacin (Niacin) 500 Mg Tab 500 MG PO BID, TAB Rosuvastatin Calcium (Crestor) 20 Mg Tab 10 MG PO QPM, TAB Warfarin Sod (Jantoven) 2.5 Mg Tab 2.5 MG PO QPM, TAB Discharge Exam Review of Systems: Constitutional: No fever, No chills Physical Exam: General Appearance: WD/WN, + mild distress Eyes: PERRL, EOMI Respiratory/Chest: chest non-tender, lungs clear Hospital Course 81 y/o male, with PMHx of CAD s/p CABG x3, a.fib, and T2DM, admitted right ELLEN done by Dr. Hough on 03/17; Complicated by post-op joint dislocation x 2, now s/ p closed reduction x 2 and revision of ELLEN. S/p right ELLEN on 03/17 and s/p right closed total hip arthroplasty reduction on 03/20 and 03/22 and s/p right ELLEN revision to constrained acetabulum on 03/24: Venous Doppler RLE for increased edema and tense calf-> neg for DVT on 03/26 - Pain management, DVT prophylaxis with coumadin, - H&H stable - Cont Vit D supplement - oxycodone and tylenol prn pain Delirium- worsened in the setting of Klebsiella Pneumonia UTI - Cont renal dosed levaquin , x 10 days total - continue Harman for now with hx of retention, Urinary retention postop, likely multifactorial- postop from first surgery had Harman placed, + likely underlying BPH- has returned as above, now causing delirium which is improved -continue Flomax 0.4 mg BID -continue Harman x 1 week, work on bowel regimen and voiding trial at [facility] CAD with CABG x 3 Paroxsysmal Afib- in NSR Hypertension - BPs much improved control now with addition of lisinopril. - continue lisinopril 5mg daily - continue ASA 81mg daily - Continue Crestor 20 mg daily, and Mag-Ox 400 mg daily - Diltiazem 120 mg HS, Amiodarone 200 mg QAM, Atenolol 12.5 mg daily - Coumadin 5 mg HS, INR --> 1.4 T2DM- controlled:-not on any home meds for DMII-usually diet controlled - ISS with accuchecks achs - hA1C on 03/04/17= 6.7 Constipation - continue mirilax, senna, and docusate PO. Ducolax supp prn DVT ppx: GABRIELLE and SCDs, Coumadin - Code Status: FULL CODE Total Time Spent: Greater than 30 minutes This includes examination of the patient, discharge planning, medication reconciliation, and communication with other providers. Discharge Instructions Please refer to the electronic Patient Visit Report (Discharge Instructions) for additional information.
--- NOTE | 2017-03-28 16:35 | Discharge Instructions ---
Discharge Instructions Date of Service Mar 28, 2017. Admission Reason for Admission: Right Hip Osteoarthritis Discharge Discharge Diagnosis / Problem: right hip repair, dislocation and revision, catheder associated uti Discharge Goals Goal(s): Diagnostic testing, Therapeutic intervention Activity Recommendations Activity Level: Assistance Required Therapies: Physical Therapy, Occupational Therapy . Additional Information Patient informed of condition: Yes Advance Directives: Yes DNR: No Level of Care: Acute Rehab Communicable Disease: No Prognosis: Stable Harman Catheter: Yes (need voiding trial) Instructions / Follow-Up Instructions / Follow-Up 81 y/o male, with PMHx of CAD s/p CABG x3, a.fib, and T2DM, admitted right ELLEN done by Dr. Hough on 03/17; Complicated by post-op joint dislocation x 2, now s/ p closed reduction x 2 and revision of ELLEN. S/p right ELLEN on 03/17 and s/p right closed total hip arthroplasty reduction on 03/20 and 03/22 and s/p right ELLEN revision to constrained acetabulum on 03/24: Venous Doppler RLE for increased edema and tense calf-> neg for DVT on 03/26 - Pain management, DVT prophylaxis with coumadin, - H&H stable - Cont Vit D supplement - oxycodone and tylenol prn pain Delirium- worsened in the setting of Klebsiella Pneumonia UTI - Cont renal dosed levaquin , x 10 days total - continue Harman for now with hx of retention, Urinary retention postop, likely multifactorial- postop from first surgery had Ahrman placed, + likely underlying BPH- has returned as above, now causing delirium which is improved -continue Flomax 0.4 mg BID -continue Harman x 1 week, work on bowel regimen and voiding trial at [facility] CAD with CABG x 3 Paroxsysmal Afib- in NSR Hypertension - BPs much improved control now with addition of lisinopril. - continue lisinopril 5mg daily - continue ASA 81mg daily - Continue Crestor 20 mg daily, and Mag-Ox 400 mg daily - Diltiazem 120 mg HS, Amiodarone 200 mg QAM, Atenolol 12.5 mg daily - Coumadin 5 mg HS, INR --> 1.4 T2DM- controlled:-not on any home meds for DMII-usually diet controlled - ISS with accuchecks achs - hA1C on 03/04/17= 6.7 Constipation - continue mirilax, senna, and docusate PO. Ducolax supp prn DVT ppx: GABRIELLE and SCDs, Coumadin - Code Status: FULL CODE Current Hospital Diet Patient's current hospital diet: Diabetes Type 2 Diet Discharge Diet Recommended Diet: Diabetes Type 2 Diet Procedures Procedures Performed: Right Hip Revision with constrained acetabular liner Pending Studies Studies pending at discharge: no Laboratory Results Hemoglobin A1c Test 03/04/17 11:37 Range/Units Estimated Average Glucose 146 mg/dl Hemoglobin A1c 6.7 H 4.5-5.6 % Medical Emergencies . Who to Call and When: Medical Emergencies: If at any time you feel your situation is an emergency, please call 911 immediately. . Non-Emergent Contact Non-Emergency issues call your: Primary Care Provider, Surgeon Call Non-Emergent contact if: temperature is above 101, your pain is unusual for you . . "Provider Documentation" section prepared by Gonzalez Wu. . Core Measure Problem Core Measures: None
[2017-03-28 16:51] VITALS: TEMP 36.8; O2SAT 93
[2017-03-28 16:56] VITALS: BP 123/64; PULSE 74
[2017-06-16] MEDS ORDERED: CIPR1TAB11 PO (14:14)
[2017-07-18] MEDS ORDERED: DOXY100C76 PO (09:06)
[2017-07-22] MEDS ORDERED: CEPH500C PO (10:17)
[2017-08-25] MEDS ORDERED: LEVO1TAB34 PO (14:18)
== END 2017-03-28 18:55 | DRG 467 ==
LOC: C.ACU 05:59 → C.MSN 07:30 → ENRESERV 09:49 → C.MSN 03-18 14:18
PROC: 0SR903Z Replacement of Right Hip Joint with Ceramic Synthetic Substitute, Open Approach (ICD-10-PCS; principal; 2017-03-17 08:15)
PROC: 0SS9XZZ Reposition Right Hip Joint, External Approach (ICD-10-PCS; 2017-03-20)
PROC: 0SS9XZZ Reposition Right Hip Joint, External Approach (ICD-10-PCS; 2017-03-22)
PROC: 0SP909Z Removal of Liner from Right Hip Joint, Open Approach (ICD-10-PCS; 2017-03-24)
PROC: 0SUA09Z Supplement Right Hip Joint, Acetabular Surface with Liner, Open Approach (ICD-10-PCS; 2017-03-24)
DX: M16.11 Unilateral primary osteoarthritis, right hip (principal); T84.020A Dislocation of internal right hip prosthesis, initial encounter; I48.92 Unspecified atrial flutter; T83.511A Infection and inflammatory reaction due to indwelling urethral catheter, initial encounter; Z96.642 Presence of left artificial hip joint; I25.10 Atherosclerotic heart disease of native coronary artery without angina pectoris; Z95.1 Presence of aortocoronary bypass graft; Z79.82 Long term (current) use of aspirin; Z88.0 Allergy status to penicillin; Z88.2 Allergy status to sulfonamides; E55.9 Vitamin D deficiency, unspecified; Y92.009 Unspecified place in unspecified non-institutional (private) residence as the place of occurrence of the external cause; Y84.6 Urinary catheterization as the cause of abnormal reaction of the patient, or of later complication, without mention of misadventure at the time of the procedure; K59.00 Constipation, unspecified; I48.0 Paroxysmal atrial fibrillation; R41.0 Disorientation, unspecified; R33.9 Retention of urine, unspecified; N40.1 Benign prostatic hyperplasia with lower urinary tract symptoms; E11.9 Type 2 diabetes mellitus without complications; K21.9 Gastro-esophageal reflux disease without esophagitis; Y79.2 Prosthetic and other implants, materials and accessory orthopedic devices associated with adverse incidents; Y92.239 Unspecified place in hospital as the place of occurrence of the external cause

== ENCOUNTER → 2017-05-02 | Outpatient (CLI) | payer BC ==
[~2017-05-02] MED LIST changes: +ACET-1138 PO; +CEPH500C PO; +CIPR1TAB11 PO; +CMD5 PO; -CYAN1LOZ2 PO; +DOXY100C76 PO; -MAGN400T6 PO; -METF-384 PO; +SNK PO; +VTMD1000 PO
[2017-05-02 17:14] LABS: HEMATOCRIT 34.3 % (42-52); MEAN CELL VOLUME 83.3 fL (80-100); MEAN CORPUSCULAR HEMOGLOBIN 26.5 pg (25-34); MEAN CORPUSCULAR HGB CONC 31.8 g/dl (32-36); MEAN PLATELET VOLUME 10.1 fL (7.4-10.4); PLATELET COUNT 360 K/uL (130-400); RED BLOOD COUNT 4.12 M/uL (4.7-6.1); WHITE BLOOD COUNT 11.36 K/uL (4.8-10.8)
[2017-05-02 17:48] LABS: BLOOD UREA NITROGEN 23 mg/dl (7-18); BUN/CREATININE RATIO 19.2 (10-20); CALCIUM 9.4 mg/dl (8.5-10.1); CARBON DIOXIDE 27 mmol/L (21-32); CHLORIDE 102 mmol/L (98-107); GLUCOSE 106 mg/dl (70-99); POTASSIUM 4.5 mmol/L (3.5-5.1); SODIUM 139 mmol/L (136-145)
== END | disposition home or self-care (01) ==
LOC: C.LAB1850 16:14
PROVIDERS: ATTEND Internal Medicine Cardiovascular Disease
DX: I25.10 Atherosclerotic heart disease of native coronary artery without angina pectoris (principal); E78.5 Hyperlipidemia, unspecified; I48.92 Unspecified atrial flutter; I10 Essential (primary) hypertension; Z79.01 Long term (current) use of anticoagulants; Z79.899 Other long term (current) drug therapy

== ENCOUNTER → 2017-06-09 | Outpatient (CLI) | payer BC | END | disposition home or self-care (01) | LOC: C.LABSPEC 17:11 | PROVIDERS: ATTEND Urology | DX: R33.9 Retention of urine, unspecified (principal) ==

== ENCOUNTER → 2017-06-13 | Outpatient (CLI) | payer BC ==
[2017-06-13 18:21] LABS: MAGNESIUM 1.7 mg/dl (1.8-2.4); THYROID STIMULATING HORMONE 0.852 uIu/ml (0.300-4.500)
== END | disposition home or self-care (01) ==
LOC: C.LABPBG 14:18
PROVIDERS: ATTEND Nurse Practitioner Family
DX: E83.42 Hypomagnesemia (principal); E03.8 Other specified hypothyroidism

== ENCOUNTER → 2017-09-22 | Outpatient (CLI) | payer BC ==
[~2017-09-22] MED LIST changes: -CEPH500C PO; -CIPR1TAB11 PO; -DOXY100C76 PO; +LEVO1TAB34 PO
--- NOTE | 2017-09-22 16:07 | DIAGNOSTIC IMAGING REPORT ---
RIGHT LOWER EXTREMITY ARTERIAL DOPPLER ULTRASOUND CLINICAL HISTORY: Nonhealing wound. Right leg weak pulse. COMPARISON STUDY: No previous studies for comparison. TECHNIQUE: Grayscale and color and duplex Doppler sonography of the arterial system of the right lower extremity was performed. FINDINGS: Ankle to brachial indices could not be obtained in this patient given noncompressibility of vessels. There was moderate atherosclerotic plaque within the right lower extremity. No elevated velocities were identified. There was biphasic flow within the right common femoral, superficial femoral, popliteal, anterior tibial, peroneal and posterior tibial arteries with monophasic flow within the right dorsalis pedis. No vessel occlusion was identified. IMPRESSION: 1. No evidence of a hemodynamically significant stenosis within the right lower extremity. 2. Moderate atherosclerotic plaque within the right lower extremity. Biphasic flow throughout the right lower extremity with the exception of monophasic flow within the right dorsalis pedis. Electronically signed by: Sam Crowley M.D. 09/22/2017 4:06 PM Dictated Date/Time: 09/22/2017 4:00 PM
== END | disposition home or self-care (01) ==
LOC: C.ULTR 13:53
PROVIDERS: ATTEND Emergency Medicine
DX: R09.89 Other specified symptoms and signs involving the circulatory and respiratory systems (principal); S81.801A Unspecified open wound, right lower leg, initial encounter; X58.XXXA Exposure to other specified factors, initial encounter

== ENCOUNTER → 2017-09-27 | Outpatient (CLI) | payer BC ==
[2017-09-27 11:56] LABS: BASO % 0.4 %; BASO ABS # 0.03 K/uL (0-0.2); COMPLETE YES; EOS % 2.5 %; HEMATOCRIT 32.3 % (42-52); IG% 0.1 %; LYMPH % 18.6 %; LYMPH ABS # 1.27 K/uL (1.2-3.4); MEAN CELL VOLUME 74.1 fL (80-100); MEAN CORPUSCULAR HEMOGLOBIN 23.4 pg (25-34); MEAN CORPUSCULAR HGB CONC 31.6 g/dl (32-36); MEAN PLATELET VOLUME 9.4 fL (7.4-10.4); MONO % 10.5 %; NEUT % 67.9 %; PLATELET COUNT 275 K/uL (130-400); RED BLOOD COUNT 4.36 M/uL (4.7-6.1); WHITE BLOOD COUNT 6.83 K/uL (4.8-10.8)
[2017-09-27 12:06] LABS: ALT/SGPT 28 U/L (12-78); BLOOD UREA NITROGEN 21 mg/dl (7-18); BUN/CREATININE RATIO 20.3 (10-20); CALCIUM 8.8 mg/dl (8.5-10.1); CARBON DIOXIDE 25 mmol/L (21-32); CHLORIDE 103 mmol/L (98-107); CHOLESTEROL 102 mg/dl (0-200); CREATININE 1.04 mg/dl (0.60-1.40); GLUCOSE 91 mg/dl (70-99); MAGNESIUM 1.8 mg/dl (1.8-2.4); SODIUM 138 mmol/L (136-145); TRIGLYCERIDES 78 mg/dl (0-150); VERY LOW DENSITY LIPOPROT CALC 16 mg/dl
[2017-09-27 12:11] LABS: ESTIMATED AVERAGE GLUCOSE 143 mg/dl; HA1C FLAG Normal (Normal)
[2017-09-27 12:15] LABS: ALKALINE PHOSPHATASE 94 U/L (45-117); AST/SGOT 25 U/L (15-37); CHOLESTEROL/HDL RATIO 1.9; HDL CHOLESTEROL 53 mg/dl; LDL CHOLESTEROL CALCULATED 33 mg/dl; THYROID STIMULATING HORMONE 0.933 uIu/ml (0.300-4.500)
[2017-09-27 12:30] LABS: RATIO 106.7 mcg/mg (0-30.0)
== END | disposition home or self-care (01) ==
LOC: C.LABPBG 10:30
PROVIDERS: ATTEND Nurse Practitioner Family
DX: E11.9 Type 2 diabetes mellitus without complications (principal); E78.5 Hyperlipidemia, unspecified; E83.42 Hypomagnesemia; I10 Essential (primary) hypertension; I25.10 Atherosclerotic heart disease of native coronary artery without angina pectoris; I48.92 Unspecified atrial flutter

== ENCOUNTER → 2017-11-07 | Outpatient (CLI) | payer BC ==
[2017-11-07 12:24] LABS: HEMATOCRIT 32.3 % (42-52); HEMOGLOBIN 10.4 g/dL (14.0-18.0); MEAN CELL VOLUME 73.1 fL (80-100); MEAN CORPUSCULAR HEMOGLOBIN 23.5 pg (25-34); MEAN CORPUSCULAR HGB CONC 32.2 g/dl (32-36); MEAN PLATELET VOLUME 9.6 fL (7.4-10.4); PLATELET COUNT 297 K/uL (130-400); RED CELL DISTRIBUTION WIDTH CV 20.4 % (11.5-14.5); RED CELL DISTRIBUTION WIDTH SD 54.5 fL (36.4-46.3); WHITE BLOOD COUNT 7.29 K/uL (4.8-10.8)
[2017-11-07 12:40] LABS: ALT/SGPT 25 U/L (12-78); AST/SGOT 19 U/L (15-37)
== END | disposition home or self-care (01) ==
LOC: C.LABPBG 08:58
PROVIDERS: ATTEND Internal Medicine Cardiovascular Disease
DX: I48.92 Unspecified atrial flutter (principal); Z79.01 Long term (current) use of anticoagulants

== ENCOUNTER → 2017-12-06 | Day surgery (SDC) | payer BC ==
[~2017-12-06] VITALS: Ht 170.2 cm; Wt 66.0 kg
[~2017-12-06] MED LIST changes: +APIX1TAB3 PO; -CMD5 PO; +DOCU100C31 PO; -LEVO1TAB34 PO; +LEVO50TA6 PO; +LIDOCAINE HCL 2% 2 ML VIAL (20MG/ML) ONE; +METF1TAB53 PO; +MULTTAB58 PO; +PROPOFOL IV EMULSION 10 MG/ML 20 ML VIAL IV ONE; -WARF2.5T8 PO; +WARF2TAB8 PO
[2017-12-06 06:59] VITALS: BP 152/80; PULSE 125; TEMP 36.9; O2SAT 95; Ht 170.2 cm; Wt 66.0 kg
--- NOTE | 2017-12-06 07:27 | History & Physical Bridge Note ---
H&P Re-Evaluation Bridge Note: I have examined the patient, reviewed the History & Physical and in the interval since the performance of the History & Physical I have noted the following changes of clinical significance: No changes noted. I reviewed the indications, procedure, risks, and alternatives of cardioversion with the patient and his and they understand and he agrees to proceed. Consent obtained.
[2017-12-06 07:35] VITALS: BP 152/80; PULSE 100; O2SAT 100
[2017-12-06 07:40] VITALS: BP 144/84; PULSE 57; O2SAT 100
--- NOTE | 2017-12-06 07:43 | Cardioversion ---
Electricial Cardioversion Rpt Date of Service: December 06, 2017 Electrical Cardioversion Rprt The patient was brought to the laboratory being NPO after midnight and was identified in the laboratory, connected to the recording apparatus including electrocardiographic monitoring, noninvasive blood pressure monitoring and pulse oximetry. Anteroposterior patch electrodes were placed. The patient was anesthetized by the anesthesia department. Once adequate anesthesia was obtained a synchronized biphasic shock was delivered using 100 J with conversion to a sinus rhythm. The patient awoke from the anesthetic without sequela, will be observed briefly and then discharged.
[2017-12-06 07:45] VITALS: BP 95/45; PULSE 57; O2SAT 98
--- NOTE | 2017-12-06 08:14 | Anesthesiology Progress Note ---
Anesthesia Post Op Note Date & Time Dec 06, 2017 at 08:13 Vital Signs Pain Intensity: 0 Vital Signs Past 12 Hours Date Time Temp Pulse Resp B/P (MAP) Pulse Ox O2 Delivery O2 Flow Rate FiO2 12/06/17 08:09 61 16 111/53 (72) 98 Room Air 12/06/17 07:59 66 16 99/47 (64) 98 Room Air 12/06/17 07:49 63 16 95/48 (64) 97 Room Air 12/06/17 07:45 57 18 95/45 98 Room Air 12/06/17 07:40 57 18 144/84 100 Nasal Cannula 4 12/06/17 07:35 100 18 152/80 100 Nasal Cannula 4 12/06/17 06:59 36.9 125 18 152/80 (104) 95 Room Air Notes Mental Status: alert / awake / arousable, participated in evaluation Pt Amnestic to Procedure: Yes Nausea / Vomiting: adequately controlled Pain: adequately controlled Airway Patency, RR, SpO2: stable & adequate BP & HR: stable & adequate Hydration State: stable & adequate Anesthetic Complications: no major complications apparent
--- NOTE | 2017-12-06 09:00 | Discharge Instructions ---
Discharge Instructions Date of Service Dec 06, 2017. Admission Reason for Admission: Atrial flutter Discharge Discharge Diagnosis / Problem: Electrical cardioversion Discharge Goals Goal(s): Improve disease control Activity Recommendations Activity Limitations: resume your previous activity . Instructions / Follow-Up Instructions / Follow-Up ACTIVITY RECOMMENDATIONS: * May resume driving tomorrow. SPECIAL CARE: * May apply burn ointment for skin irritation. * Please contact physician for any lightheadedness, dizziness or palpitations. Followup with Dr. Evans on January 03, 2018 at 11:30 AM Current Hospital Diet Patient's current hospital diet: AHA Diet (Heart Healthy) Discharge Diet Recommended Diet: AHA Diet (Heart Healthy) Pending Studies Studies pending at discharge: no Laboratory Results Hemoglobin A1c Test 09/27/17 10:42 Range/Units Estimated Average Glucose 143 mg/dl Hemoglobin A1c 6.6 H 4.5-5.6 % Lipid Panel Test 09/27/17 10:42 Range/Units Triglycerides Level 78 0-150 mg/dl Cholesterol Level 102 0-200 mg/dl HDL Cholesterol 53 mg/dl Cholesterol/HDL Ratio 1.9 LDL Cholesterol, Calculated 33 mg/dl Medical Emergencies . Who to Call and When: Medical Emergencies: If at any time you feel your situation is an emergency, please call 911 immediately. . Non-Emergent Contact Non-Emergency issues call your: Primary Care Provider . . "Provider Documentation" section prepared by Mynor Evans. . VTE Core Measure Inpt VTE Proph given/why not?: Warfarin (Coumadin)
[2017-12-06 09:15] VITALS: BP 135/60; PULSE 68; O2SAT 98
== END | disposition home or self-care (01) ==
LOC: C.CATH 06:28
PROVIDERS: ATTEND Internal Medicine Cardiovascular Disease
DX: I48.92 Unspecified atrial flutter (principal); I25.10 Atherosclerotic heart disease of native coronary artery without angina pectoris; I10 Essential (primary) hypertension; I73.9 Peripheral vascular disease, unspecified; E11.51 Type 2 diabetes mellitus with diabetic peripheral angiopathy without gangrene; M19.90 Unspecified osteoarthritis, unspecified site; N40.0 Benign prostatic hyperplasia without lower urinary tract symptoms; E03.8 Other specified hypothyroidism; E78.5 Hyperlipidemia, unspecified; Z79.01 Long term (current) use of anticoagulants; Z79.899 Other long term (current) drug therapy; Z79.82 Long term (current) use of aspirin; Z88.6 Allergy status to analgesic agent; Z88.0 Allergy status to penicillin; Z88.2 Allergy status to sulfonamides; Z95.1 Presence of aortocoronary bypass graft; Z96.649 Presence of unspecified artificial hip joint; Z98.890 Other specified postprocedural states

== ENCOUNTER 2018-01-17 08:25 | Emergency (ER) | payer BC ==
[~2018-01-17] VITALS: Ht 170.2 cm; Wt 73.0 kg
[~2018-01-17 08:25] MED LIST changes: -ACET-1138 PO; -APIX1TAB3 PO; -ATEN-173 PO; +LEVO1TAB33 PO; -LIDOCAINE HCL 2% 2 ML VIAL (20MG/ML) ONE; -PROPOFOL IV EMULSION 10 MG/ML 20 ML VIAL IV ONE; -SNK PO; -VTMD1000 PO
[2018-01-17 08:26] VITALS: TEMP 36.8; Ht 170.2 cm; Wt 73.0 kg
[2018-01-17] MEDS ORDERED: HYDROmorphone INJ 0.5 MG/0.5 ML SYR IV STA ×2 (08:36→10:48)
[2018-01-17] MEDS ORDERED: ONDANSETRON INJ 2 MG/ML 2 ML VIAL IV STA (08:36)
[2018-01-17 08:52] LABS: HEMATOCRIT 30.4 % (42-52); HEMOGLOBIN 9.9 g/dL (14.0-18.0); MEAN CORPUSCULAR HEMOGLOBIN 24.1 pg (25-34); MEAN CORPUSCULAR HGB CONC 32.6 g/dl (32-36); MEAN PLATELET VOLUME 8.7 fL (7.4-10.4); PLATELET COUNT 201 K/uL (130-400); RED CELL DISTRIBUTION WIDTH CV 19.7 % (11.5-14.5); RED CELL DISTRIBUTION WIDTH SD 54.3 fL (36.4-46.3); WHITE BLOOD COUNT 10.83 K/uL (4.8-10.8)
--- NOTE | 2018-01-17 08:58 | EMERGENCY ROOM VISIT NOTE ---
History Report prepared by Nannette: Jazmine Contreras Under the Supervision of: Dr. Lenny Troncoso M.D. First contact with patient: 08:30 Chief Complaint: HIP PAIN Stated Complaint: HIP OUT History of Present Illness The patient is a 82 year old male who presents to the Emergency Room with complaints of worsening right hip pain for the past 12 hours. The patient has a history of a right hip replacement. This was done by Dr. Hough last March. Since then, the hip has come out of place 4 times. The patient states that it feels like his hip is out of place again. He is unable to bear weight on the right leg. His pain is worsened with sitting. He rates his current pain as a 10/ 10 in severity. The patient states that his pain began suddenly last night before he went to bed. He denies any trauma or injury to the leg. gave him one of her Vicodin last night for his pain. The patient is on Eliquis. 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 Review of Systems See HPI for pertinent positives & negatives. A total of 10 systems reviewed and were otherwise negative. 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 Family History No pertinent family history Social History Smoking Status: Never Smoker Alcohol Use: none Drug Use: none Marital Status: Housing Status: lives with significant other Occupation Status: retired Current/Historical Medications Scheduled Amiodarone Hcl (Pacerone), 200 MG PO QAM Apixaban (Eliquis), 5 MG PO BID Aspirin (Aspirin Ec), 81 MG PO QAM Docusate Sodium (Colace), 1 CAP PO BID Levothyroxine Sodium (Levothyroxine Sodium), 50 MCG PO DAILY Lidocaine (Lidocaine), 5 % TD DAILY Metformin Hcl (Glucophage Ext Rel), 1,000 MG PO BID Multiple Vitamin (Multivitamin), 1 TAB PO DAILY Niacin (Niacin), 500 MG PO BID Rosuvastatin Calcium (Crestor), 10 MG PO QPM Sennosides (Senokot), 8.6 MG PO HS Scheduled PRN Oxycodone Immediate Rel Tab (Roxicodone Ir), 1-2 TAB PO Q4H PRN for Severe Pain Allergies Coded Allergies: Penicillins (Verified Allergy, Severe, GENERALIZED AND FACIAL SWELLING, 01/17/18) Sulfa Antibiotics (Verified Allergy, Severe, GENERALIZED AND FACIAL SWELLING, 01/17/18) Shellfish (Verified Allergy, Unknown, GENERALIZED AND FACIAL SWELLING, 01/17) Physical Exam Vital Signs Date Time Temp Pulse Resp B/P (MAP) Pulse Ox O2 Delivery O2 Flow Rate FiO2 01/17/18 10:54 67 18 122/64 97 Room Air 01/17/18 10:01 64 16 142/70 95 Room Air 01/17/18 09:39 72 18 129/57 95 Room Air 01/17/18 09:19 71 01/17/18 09:16 77 16 131/62 96 Room Air 01/17/18 08:26 36.8 76 18 124/54 96 Physical Exam GENERAL: Awake, alert, well-appearing, in obvious pain. HENT: Normocephalic, atraumatic. Oropharynx unremarkable. EYES: Normal conjunctiva. Sclera non-icteric. NECK: Supple. No nuchal rigidity. FROM. No JVD. RESPIRATORY: Clear to auscultation. CARDIAC: Regular rate, normal rhythm. Extremities warm and well perfused. Pulses equal. ABDOMEN: Soft, non-distended. No tenderness to palpation. No rebound or guarding. No masses. RECTAL: Deferred. MUSCULOSKELETAL: Chest examination reveals no tenderness. The back is symmetrical on inspection without obvious abnormality. There is no CVA tenderness to palpation. No joint edema. LOWER EXTREMITIES: Cannot support weight on right leg, right leg appears shortened. Calves are equal size bilaterally and non-tender. No edema. No discoloration. NEURO: Normal sensorium. No sensory or motor deficits noted. SKIN: No rash or jaundice noted. Medical Decision & Procedures ER Provider Diagnostic Interpretation: Radiology results as stated below per my review and radiologist interpretation: PELVIS 1 OR 2 VIEW ROUTINE CLINICAL HISTORY: 82 years-old Male presenting with Pt c/o hip pain. TECHNIQUE: Single frontal view of the pelvis was obtained. COMPARISON: Correlation made to CT from 05/31/2016. FINDINGS: Postsurgical changes of bilateral total hip arthroplasty now evident. Osteopenia may be present. 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 This does not appear to be completely bridging. Less severe heterotopic ossification noted along the inferior left hip joint, which is unchanged since 2016. No malalignment. The bony pelvis is intact. Extensive atherosclerosis. IMPRESSION: 1. Allowing for osteopenia, no convincing evidence of acute osseous injury. 2. Interval total right hip arthroplasty. 3. 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 Electronically signed by: Antoni Mayer M.D. 01/17/2018 9:18 AM Dictated Date/Time: 01/17/2018 9:16 AM R FEMUR 2 VIEWS ROUTINE CLINICAL HISTORY: Right hip pain COMPARISON: None. DISCUSSION: There are postsurgical changes of a total right hip arthroplasty. There is extensive heterotopic ossification present. There are no acute fractures. There are no dislocations. There are extensive vascular calcifications present. No femoral fractures are visualized. Arthritic changes are present within the knee. There are calcifications present in the region of the distal quadriceps tendon. IMPRESSION: 1. Postsurgical changes of a total right hip arthroplasty 2. No acute fractures. Electronically signed by: Ashvin Robles M.D. 01/17/2018 9:20 AM Dictated Date/Time: 01/17/2018 9:19 AM PELVIS NO IV/ORAL CONT (CT) CLINICAL HISTORY: 82 years-old Male presenting with Pt c/o Rt hip pain, began last night, no injury, prior hip surgery. TECHNIQUE: Multidetector CT of the pelvis was performed without the use of intravenous contrast. IV contrast: None. A dose lowering technique was used consistent with the principles of ALARA (as low as reasonably achievable). COMPARISON: Plain radiograph from 01/17/[address] from 05/31/2016. CT DOSE (mGy.cm): The estimated cumulative dose is 668.91 mGycm. FINDINGS: Mold Chipper topogram: Bilateral total hip arthroplasty. Regional streak artifact arising from the arthroplasty limits evaluation. Degenerative changes of the lower lumbar spine, sacroiliac joints, and pubic symphysis. Chondrocalcinosis noted at the pubic symphysis. Postsurgical changes of total hip arthroplasty bilaterally. The right iliac screw traverses through the anterior cortex of the right ilium into the right iliopsoas. No hardware complication or periprosthetic fracture. No malalignment. No hematoma. Extensive heterotopic ossification along the right hip joint, which is nearly bridging along the posterior and superior aspect. Less extensive heterotopic ossification noted along the inferior medial aspect of the left hip joint. The bony pelvis is intact. Normal muscle bulk. Limited intrapelvic a violation demonstrates atherosclerosis of the iliac vessels. Circumferential bladder wall thickening may suggest chronic bladder outlet obstruction in the setting of prostatomegaly. Fat-containing left inguinal hernia. Moderate stool burden. No lymphadenopathy. IMPRESSION: 1. Extensive heterotopic ossification along the posterior superior aspect of the left hip joint, which is nearly bridging. No evidence of hardware complication. 2. Postsurgical changes of bilateral total hip arthroplasty. 3. No acute osseous injury. Electronically signed by: Antoni Mayer M.D. 01/17/2018 10:05 AM Dictated Date/Time: 01/17/2018 10:01 AM Laboratory Results 01/17/18 08:44 Red Blood Count 4.11, Mean Corpuscular Volume 74.0, Mean Corpuscular Hemoglobin 24.1, Mean Corpuscular Hemoglobin Concent 32.6, Mean Platelet Volume 8.7, Neutrophils (%) (Auto) 76.7, Lymphocytes (%) (Auto) 9.4, Monocytes (%) (Auto) 12.7, Eosinophils (%) (Auto) 0.6, Basophils (%) (Auto) 0.3, Neutrophils # (Auto ) 8.30, Lymphocytes # (Auto) 1.02, Monocytes # (Auto) 1.38, Eosinophils # (Auto ) 0.07, Basophils # (Auto) 0.03 01/17/18 08:44 Test 01/17/18 08:44 White Blood Count 10.83 K/uL (4.8-10.8) Red Blood Count 4.11 M/uL (4.7-6.1) Hemoglobin 9.9 g/dL (14.0-18.0) Hematocrit 30.4 % (42-52) Mean Corpuscular Volume 74.0 fL (80-100) Mean Corpuscular Hemoglobin 24.1 pg (25-34) Mean Corpuscular Hemoglobin Concent 32.6 g/dl (32-36) Platelet Count 201 K/uL (130-400) Mean Platelet Volume 8.7 fL (7.4-10.4) Neutrophils (%) (Auto) 76.7 % Lymphocytes (%) (Auto) 9.4 % Monocytes (%) (Auto) 12.7 % Eosinophils (%) (Auto) 0.6 % Basophils (%) (Auto) 0.3 % Neutrophils # (Auto) 8.30 K/uL (1.4-6.5) Lymphocytes # (Auto) 1.02 K/uL (1.2-3.4) Monocytes # (Auto) 1.38 K/uL (0.11-0.59) Eosinophils # (Auto) 0.07 K/uL (0-0.5) Basophils # (Auto) 0.03 K/uL (0-0.2) RDW Standard Deviation 54.3 fL (36.4-46.3) RDW Coefficient of Variation 19.7 % (11.5-14.5) Immature Granulocyte % (Auto) 0.3 % Immature Granulocyte # (Auto) 0.03 K/uL (0.00-0.02) Anisocytosis PRESENT Microcytosis PRESENT Ovalocytes 1+ Anion Gap 11.0 mmol/L (3-11) Est Creatinine Clear Calc Drug Dose 49.4 ml/min Estimated GFR () 74.9 Estimated GFR (Non- 64.6 BUN/Creatinine Ratio 22.0 (10-20) Calcium Level 9.1 mg/dl (8.5-10.1) Total Bilirubin 0.5 mg/dl (0.2-1) Direct Bilirubin 0.2 mg/dl (0-0.2) Aspartate Amino Transf (AST/SGOT) 26 U/L (15-37) Alanine Aminotransferase (ALT/SGPT) 26 U/L (12-78) Alkaline Phosphatase 74 U/L (45-117) Total Protein 7.6 gm/dl (6.4-8.2) Albumin 3.8 gm/dl (3.4-5.0) Lipase 122 U/L (73-393) Labs reviewed by ED physician. Medications Administered Medications (Trade) Dose Ordered Sig/Sae Route Start Time Stop Time Status Last Admin Dose Admin Hydromorphone HCl (Dilaudid Inj) 0.5 mg NOW STAT IV 01/17/18 08:36 01/17/18 08:37 DC 01/17/18 08:48 0.5 MG Ondansetron HCl (Zofran Inj) 4 mg NOW STAT IV 01/17/18 08:36 01/17/18 08:37 DC 01/17/18 08:48 4 MG Lidocaine (Lidoderm Patch 5%) 1 patch NOW STAT TD 01/17/18 09:26 01/17/18 09:27 DC 01/17/18 09:38 1 PATCH Hydromorphone HCl (Dilaudid Inj) 0.5 mg NOW STAT IV 01/17/18 10:48 01/17/18 10:49 DC 01/17/18 10:54 0.5 MG ED Course 829: Past medical records reviewed. The patient was evaluated in room B3B. A complete history and physical examination was performed. 0836: Zofran 4 mg IV, Dilaudid 0.5 mg IV 0926: Lidocaine 1 patch TD 1010: I updated the patient on his results. 1047: I reassessed the patient at this time. He is still complaining of pain. I discussed the results and treatment plan with the patient. I answered all pertaining questions that he had. He expressed understanding and verbalized agreement. I offered the patient admission to the hospital but he declined and wants to go home. The patient will be discharged home. 1048: Dilaudid 0.5 mg IV Medical Decision Differential diagnosis: Etiologies such as fracture, dislocation, neurovascular compromise, compartment syndrome, soft tissue injury, as well as others were entertained. This is an 82-year-old male who presents emergency department complaining of right hip pain. The patient has had multiple hip surgeries and feels that his hip is out of place. On physical examination he has good range of motion of the hip. Upon further questioning of the patient the patient reveals he has been doing bicycle and crunch exercises that he started on Tuesday and I feel he is most likely suffering from a hip strain related to these exercises. X- rays do not show any acute process however due to the large amount of osteopenia he was sent for CAT scan of the pelvis. Patient was given Dilaudid 2 here in the emergency department. CAT scan does not show any acute fractures. I offered inpatient rehabilitation with physical therapy and occupational therapy for 2 the patient however he wishes to be discharged home and feels he can get his strength up there. I stressed the need for follow-up with the patient's orthopedic surgeon. Patient was in agreement with the treatment plan. Medication Reconcilliation Current Medication List: was personally reviewed by me Blood Pressure Screening Patient's blood pressure: Normal blood pressure Impression Primary Impression: Hip pain, right Scribe Attestation The scribe's documentation has been prepared under my direction and personally reviewed by me in its entirety. I confirm that the note above accurately reflects all work, treatment, procedures, and medical decision making performed by me. Departure Information Dispostion Home / Self-Care Prescriptions Lidocaine (Lidocaine) 1 Patch Tdsy 5 % TD DAILY for 30 Days, #30 PATCH Prov: Lenny Troncoso MD 01/17/18 Docusate Sodium (COLACE) 100 Mg Cap 1 CAP PO BID for 30 Days, #60 CAP Prov: Lenny Troncoso MD 01/17/18 Sennosides (SENOKOT) 8.6 Mg Tab 8.6 MG PO HS for 30 Days, #30 TAB Prov: Lenny Troncoso MD 01/17/18 Oxycodone Immediate Rel Tab (ROXICODONE IR) 5 Mg Tab 1-2 TAB PO Q4H Y for Severe Pain, #14 TAB Prov: Lenny Troncoso MD 01/17/18 Referrals Munir Andino III, CRNP (PCP) Forms HOME CARE DOCUMENTATION FORM, IMPORTANT VISIT INFORMATION, WORK / SCHOOL INSTRUCTIONS Patient Instructions ED Sprain Hip, My [facility], [facility] Additional Instructions Follow up with Dr Hough's office Take 1000 mg Tylenol every 6 hours Take oxy IR for breakthrough pain You received narcotic or benzodiazepene medication while in the emergency room today. This is an addictive medication that may cause drowziness as well as constipation. Do not drive, operate heavy machinery, or drink alcohol under the influence of this medication. You have been examined and treated today on an emergency basis only. This is not a substitute for, or an effort to provide, complete comprehensive medical care. It is impossible to recognize and treat all injuries or illnesses in a single emergency department visit. It is therefore important that you follow up closely with your PCP. Call as soon as possible for an appointment. Thank you for your time and consideration. I look forward to speaking with you again soon. Please don't hesitate to call us if you have any questions.
[2018-01-17 09:07] LABS: ALBUMIN 3.8 gm/dl (3.4-5.0); CALCIUM 9.1 mg/dl (8.5-10.1); CREATININE 1.06 mg/dl (0.60-1.40); POTASSIUM 3.9 mmol/L (3.5-5.1)
[2018-01-17 09:10] LABS: TOTAL PROTEIN 7.6 gm/dl (6.4-8.2)
[2018-01-17 09:17] LABS: BASO % 0.3 %; BASO ABS # 0.03 K/uL (0-0.2); EOS % 0.6 %; EOS ABS # 0.07 K/uL (0-0.5); IG# 0.03 K/uL (0.00-0.02); LYMPH % 9.4 %; LYMPH ABS # 1.02 K/uL (1.2-3.4); MONO % 12.7 %; MONO ABS # 1.38 K/uL (0.11-0.59); NEUT % 76.7 %
--- NOTE | 2018-01-17 09:19 | DIAGNOSTIC IMAGING REPORT ---
PELVIS 1 OR 2 VIEW ROUTINE CLINICAL HISTORY: 82 years-old Male presenting with Pt c/o hip pain. TECHNIQUE: Single frontal view of the pelvis was obtained. COMPARISON: Correlation made to CT from 05/31/2016. FINDINGS: Postsurgical changes of bilateral total hip arthroplasty now evident. Osteopenia may be present. 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 This does not appear to be completely bridging. Less severe heterotopic ossification noted along the inferior left hip joint, which is unchanged since 2016. No malalignment. The bony pelvis is intact. Extensive atherosclerosis. IMPRESSION: 1. Allowing for osteopenia, no convincing evidence of acute osseous injury. 2. Interval total right hip arthroplasty. 3. 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 Electronically signed by: Antoni Mayer M.D. 01/17/2018 9:18 AM Dictated Date/Time: 01/17/2018 9:16 AM
--- NOTE | 2018-01-17 09:22 | DIAGNOSTIC IMAGING REPORT ---
R FEMUR 2 VIEWS ROUTINE CLINICAL HISTORY: Right hip pain COMPARISON: None. DISCUSSION: There are postsurgical changes of a total right hip arthroplasty. There is extensive heterotopic ossification present. There are no acute fractures. There are no dislocations. There are extensive vascular calcifications present. No femoral fractures are visualized. Arthritic changes are present within the knee. There are calcifications present in the region of the distal quadriceps tendon. IMPRESSION: 1. Postsurgical changes of a total right hip arthroplasty 2. No acute fractures. Electronically signed by: Ashvin Robles M.D. 01/17/2018 9:20 AM Dictated Date/Time: 01/17/2018 9:19 AM
[2018-01-17] MEDS ORDERED: LIDODERM (LIDOCAINE) PATCH 5% TD STA (09:26)
[2018-01-17] MEDS ORDERED: APIX1TAB3 PO (09:32)
--- NOTE | 2018-01-17 10:06 | DIAGNOSTIC IMAGING REPORT ---
PELVIS NO IV/ORAL CONT (CT) CLINICAL HISTORY: 82 years-old Male presenting with Pt c/o Rt hip pain, began last night, no injury, prior hip surgery. TECHNIQUE: Multidetector CT of the pelvis was performed without the use of intravenous contrast. IV contrast: None. A dose lowering technique was used consistent with the principles of ALARA (as low as reasonably achievable). COMPARISON: Plain radiograph from 01/17/[address] from 05/31/2016. CT DOSE (mGy.cm): The estimated cumulative dose is 668.91 mGycm. 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 Regional streak artifact arising from the arthroplasty limits evaluation. Degenerative changes of the lower lumbar spine, sacroiliac joints, and pubic symphysis. Chondrocalcinosis noted at the pubic symphysis. Postsurgical changes of total hip arthroplasty bilaterally. The right iliac screw traverses through the anterior cortex of the right ilium into the right iliopsoas. No hardware complication or periprosthetic fracture. No malalignment. No hematoma. Extensive heterotopic ossification along the right hip joint, which is nearly bridging along the posterior and superior aspect. Less extensive heterotopic ossification noted along the inferior medial aspect of the left hip joint. The bony pelvis is intact. Normal muscle bulk. Limited intrapelvic a violation demonstrates atherosclerosis of the iliac vessels. Circumferential bladder wall thickening may suggest chronic bladder outlet obstruction in the setting of prostatomegaly. Fat-containing left inguinal hernia. Moderate stool burden. No lymphadenopathy. IMPRESSION: 1. Extensive heterotopic ossification along the posterior superior aspect of the left hip joint, which is nearly bridging. No evidence of hardware complication. 2. Postsurgical changes of bilateral total hip arthroplasty. 3. No acute osseous injury. Electronically signed by: Antoni Mayer M.D. 01/17/2018 10:05 AM Dictated Date/Time: 01/17/2018 10:01 AM
[2018-01-17] MEDS ORDERED: DOCU-94 PO (10:53)
[2018-01-17] MEDS ORDERED: LDDP5 TD (10:53)
[2018-01-17] MEDS ORDERED: SENN1TAB77 PO (10:53)
[2018-01-17] MEDS ORDERED: OXYC1TAB3 PO (10:53)
[2018-01-17 10:54] VITALS: BP 122/64; PULSE 67; O2SAT 97
[2018-01-19] MEDS ORDERED: LEVO-366 PO (13:41)
== END 2018-01-17 11:20 | disposition home or self-care (01) ==
LOC: C.EDB 08:28
DX: M25.551 Pain in right hip (principal); I48.91 Unspecified atrial fibrillation; M08.451 Pauciarticular juvenile rheumatoid arthritis, right hip; Z88.0 Allergy status to penicillin; Z88.2 Allergy status to sulfonamides; Z91.013 Allergy to seafood

== ENCOUNTER → 2018-01-19 | Outpatient (CLI) | payer BC ==
[~2018-01-19] MED LIST changes: +APIX1TAB3 PO; -DILT120C68 PO; +DOCU-94 PO; -DOCU100C31 PO; +LDDP5 TD; +LEVO-366 PO; -LEVO1TAB33 PO; +OPTIRAY 320 IV PRN; +OXYC1TAB3 PO; +SENN1TAB77 PO; -WARF2TAB8 PO
--- NOTE | 2018-01-19 17:42 | DIAGNOSTIC IMAGING REPORT ---
CT SCAN OF THE RIGHT FOOT WITH IV CONTRAST CLINICAL HISTORY: Nonhealing wound on the heel. COMPARISON STUDY: No priors. TECHNIQUE: Following the IV administration of 118 cc of Optiray 320, CT scan of the right foot is performed from the ankle joint to the base of the foot. Images are reviewed in the axial, sagittal, and coronal planes. IV contrast was administered without complication. A dose lowering technique was utilized adhering to the principles of ALARA. Note that interpretation is suboptimal without plain film correlate. CT DOSE: 160.64 mGy.cm FINDINGS: The skeletal structures are heterogeneously osteopenic. No fracture is identified. No lytic or blastic lesion is seen. There is no evidence of osteochondral defect in the talar dome. There is no bony erosion or periostitis identified typical in appearance for osteomyelitis. Dorsal and plantar calcaneal enthesophytes are observed. There remains normal fat within the sinus tarsi. There is soft tissue edema identified along the posterior aspect of the heel. A tiny cutaneous defect is suggested on image 164 may represent an ulceration. No organized fluid collection is seen to suggest abscess. The Achilles tendon is intact as imaged. Atherosclerotic calcification is noted throughout the regional arteries. Mild arthritic change is noted in the hindfoot. The plantar fascia is grossly normal as visualized. IMPRESSION: 1. Soft tissue edema and a small cutaneous ulcer are identified along the posterior aspect of the heel. The appearance suggests cellulitis. There is no organized fluid collection to indicate abscess. 2. There is no convincing CT evidence of underlying osteomyelitis of the calcaneus. 3. Osteopenia, heel spurs, and additional findings as above. Dictated: 01/19/2018 5:09 PM Transcribed: 01/19/2018 5:42 PM [email or web address] Electronically signed by: Jigar Acuña M.D. 01/19/2018 6:02 PM Dictated Date/Time: 01/19/2018 5:09 PM
== END | disposition home or self-care (01) ==
LOC: C.CTS 16:40
PROVIDERS: ATTEND Emergency Medicine
DX: L97.419 Non-pressure chronic ulcer of right heel and midfoot with unspecified severity (principal)

== ENCOUNTER → 2018-01-23 | Outpatient (CLI) | payer BC ==
[~2018-01-23] MED LIST changes: -OPTIRAY 320 IV PRN
[2018-01-23 13:22] LABS: BLOOD UREA NITROGEN 23 mg/dl (7-18); CREATININE 1.09 mg/dl (0.60-1.40)
== END | disposition home or self-care (01) ==
LOC: C.LABPBG 09:27
PROVIDERS: ATTEND Nurse Practitioner Family
DX: E11.9 Type 2 diabetes mellitus without complications (principal); Z79.84 Long term (current) use of oral hypoglycemic drugs

== ENCOUNTER → 2018-02-01 | Outpatient (CLI) | payer BC ==
[2018-02-01 13:38] LABS: ALBUMIN 3.2 gm/dl (3.4-5.0); ALT/SGPT 29 U/L (12-78); BLOOD UREA NITROGEN 18 mg/dl (7-18); CALCIUM 8.8 mg/dl (8.5-10.1); CARBON DIOXIDE 26 mmol/L (21-32); CREATININE 1.01 mg/dl (0.60-1.40); GLUCOSE 96 mg/dl (70-99); POTASSIUM 3.7 mmol/L (3.5-5.1); SODIUM 136 mmol/L (136-145)
[2018-02-01 13:49] LABS: ALKALINE PHOSPHATASE 75 U/L (45-117); AST/SGOT 23 U/L (15-37); TOTAL PROTEIN 7.6 gm/dl (6.4-8.2)
[2018-02-01 14:54] LABS: CREATININE RANDOM URINE 75.8 mg/dl
[2018-02-02 07:08] LABS: HEMOGLOBIN A1C 6.8 % (4.5-5.6)
== END | disposition home or self-care (01) ==
LOC: C.LABPBG 09:07
PROVIDERS: ATTEND Nurse Practitioner Family
DX: I25.10 Atherosclerotic heart disease of native coronary artery without angina pectoris (principal); E78.5 Hyperlipidemia, unspecified; E11.9 Type 2 diabetes mellitus without complications; I48.92 Unspecified atrial flutter; I10 Essential (primary) hypertension; E03.8 Other specified hypothyroidism

== ENCOUNTER → 2018-05-04 | Outpatient (CLI) | payer BC ==
[~2018-05-04] MED LIST changes: +ACET-1256 PO; +CIPR1TAB11 PO; -DOCU-94 PO; -LEVO-366 PO; +OXYC-737 PO; -OXYC1TAB3 PO; -SENN1TAB77 PO
[2018-05-04 13:32] LABS: HEMATOCRIT 32.6 % (42-52); HEMOGLOBIN 10.2 g/dL (14.0-18.0); MEAN CELL VOLUME 79.9 fL (80-100); MEAN CORPUSCULAR HGB CONC 31.3 g/dl (32-36); MEAN PLATELET VOLUME 10.6 fL (7.4-10.4); PLATELET COUNT 267 K/uL (130-400); RED CELL DISTRIBUTION WIDTH CV 18.6 % (11.5-14.5); RED CELL DISTRIBUTION WIDTH SD 54.9 fL (36.4-46.3); WHITE BLOOD COUNT 7.78 K/uL (4.8-10.8)
[2018-05-04 14:47] LABS: ALBUMIN 3.7 gm/dl (3.4-5.0); ALKALINE PHOSPHATASE 79 U/L (45-117); ALT/SGPT 27 U/L (12-78); AST/SGOT 22 U/L (15-37); BLOOD UREA NITROGEN 22 mg/dl (7-18); CALCIUM 8.5 mg/dl (8.5-10.1); CARBON DIOXIDE 25 mmol/L (21-32); CHOLESTEROL 102 mg/dl (0-200); CREATININE 1.16 mg/dl (0.60-1.40); GLUCOSE 84 mg/dl (70-99); LDL CHOLESTEROL CALCULATED 33 mg/dl; POTASSIUM 4.1 mmol/L (3.5-5.1); SODIUM 139 mmol/L (136-145); TOTAL PROTEIN 7.7 gm/dl (6.4-8.2)
[2018-05-05 06:11] LABS: HEMOGLOBIN A1C 6.5 % (4.5-5.6)
== END | disposition home or self-care (01) ==
LOC: C.LABPBG 08:34
PROVIDERS: ATTEND Nurse Practitioner Family
DX: Z00.00 Encounter for general adult medical examination without abnormal findings (principal); E78.5 Hyperlipidemia, unspecified; I10 Essential (primary) hypertension; E03.8 Other specified hypothyroidism

== ENCOUNTER 2018-05-11 10:16 | Emergency (ER) | payer BC ==
[~2018-05-11] VITALS: Ht 167.6 cm; Wt 68.0 kg
[~2018-05-11 10:16] MED LIST changes: -ACET-1256 PO
[2018-05-11 10:23] VITALS: TEMP 36.7; Ht 167.6 cm; Wt 68.0 kg
[2018-05-11 10:46] VITALS: O2SAT 96
[2018-05-11 11:04] LABS: INR 1.1 (0.9-1.1); PTT PATIENT 28.1 SECONDS (21.0-31.0)
[2018-05-11] MEDS ORDERED: ACET-1256 PO (11:09)
[2018-05-11 11:20] LABS: HEMATOCRIT 32.3 % (42-52); HEMOGLOBIN 10.1 g/dL (14.0-18.0); MEAN CELL VOLUME 79.4 fL (80-100); MEAN CORPUSCULAR HEMOGLOBIN 24.8 pg (25-34); MEAN CORPUSCULAR HGB CONC 31.3 g/dl (32-36); MEAN PLATELET VOLUME 9.7 fL (7.4-10.4); PLATELET COUNT 256 K/uL (130-400); RED CELL DISTRIBUTION WIDTH CV 17.9 % (11.5-14.5); RED CELL DISTRIBUTION WIDTH SD 52.5 fL (36.4-46.3); WHITE BLOOD COUNT 6.55 K/uL (4.8-10.8)
--- NOTE | 2018-05-11 11:20 | DIAGNOSTIC IMAGING REPORT ---
CHEST ONE VIEW PORTABLE HISTORY: 82 years-old Male Chest pain acute atypical chest pain COMPARISON: Chest radiograph 03/04/2017 TECHNIQUE: Portable AP view of the chest FINDINGS: Prior median sternotomy. Cardiomediastinal and hilar silhouettes are within normal limits. Surgical clips project over the left mediastinal border. Calcification of the aorta. There is no pneumothorax, pleural effusion, focal airspace consolidation or overt pulmonary edema. Degenerative changes of the shoulders and spine. IMPRESSION: No acute process. The above report was generated using voice recognition software. It may contain grammatical, syntax or spelling errors. Electronically signed by: Trae Leonard M.D. 05/11/2018 11:18 AM Dictated Date/Time: 05/11/2018 11:17 AM
[2018-05-11 11:21] LABS: ALBUMIN 3.6 gm/dl (3.4-5.0); CALCIUM 8.5 mg/dl (8.5-10.1); CKMB 1.3 ng/ml (0.5-3.6); CREATININE 1.2 mg/dl (0.60-1.40); POTASSIUM 4.2 mmol/L (3.5-5.1); TOTAL PROTEIN 7.6 gm/dl (6.4-8.2)
--- NOTE | 2018-05-11 11:49 | DIAGNOSTIC IMAGING REPORT ---
L SHOULDER MIN 2 VIEWS ROUTINE CLINICAL HISTORY: Pt c/o left shoulder pain COMPARISON: None. DISCUSSION: Moderate degenerative change acromioclavicular joint. Mild degenerative change glenohumeral joint. No evidence for fracture or dislocation. There is no evidence for soft tissue swelling. IMPRESSION: Moderate degenerative change left shoulder. No acute process. The above report was generated using voice recognition software. It may contain grammatical, syntax or spelling errors. Electronically signed by: Rizwan Terrazas M.D. 05/11/2018 11:48 AM Dictated Date/Time: 05/11/2018 11:47 AM
--- NOTE | 2018-05-11 12:36 | EMERGENCY ROOM VISIT NOTE ---
History Report prepared by Nannette: Claudia Garcia Under the Supervision of: Dr. Lenny Troncoso M.D. First contact with patient: 10:50 Chief Complaint: CARDIAC ASSESSMENT Stated Complaint: L SHOULDER PAIN, POSSIBLY HEART Nursing Triage Summary: Patient c/o of left shoulder down to the elbow pain, left back pain, neck pain x 1 week. Symptoms are similar to when I had my heart attack. History of Present Illness The patient is an 82 year old male who presents to the Emergency Room with complaints of persistent left shoulder pain starting 10 days ago. The pain goes down his upper arm and into his back. 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 He rates his discomfort as a 2/10 at rest. The pain increases to a 9/10 when he moves his arm. He notes that he was cutting shrubs 10 days ago when the pain started. He had braced himself with his left arm during a fall that day. He took Tylenol at 0800 today. He denies any chest pain. He is on Eliquis. Source of History: patient, spouse/significant other Onset: 10 days ago Position: shoulder (left) Symptom Intensity: 2/10 at rest, 9/10 at worst Timing: other (persistent) Modifying Factors (Worsening): movement Associated Symptoms: + back pain, No chest pain Note: Pt reports left arm pain. Review of Systems See HPI for pertinent positives & negatives. A total of 10 systems reviewed and were otherwise negative. 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 Family History Hypertension Social History Smoking Status: Never Smoker Alcohol Use: none Drug Use: none Marital Status: Housing Status: lives with significant other Occupation Status: retired Current/Historical Medications Scheduled Acetaminophen (Tylenol), 1,000 MG PO UD Amiodarone Hcl (Pacerone), 200 MG PO QAM Apixaban (Eliquis), 5 MG PO BID Aspirin (Aspirin Ec), 81 MG PO QAM Levothyroxine Sodium (Levothyroxine Sodium), 50 MCG PO QAM Metformin Hcl (Glucophage Ext Rel), 1,000 MG PO BID Multiple Vitamin (Multivitamin), 1 TAB PO QAM Niacin (Niacin), 500 MG PO BID Rosuvastatin Calcium (Crestor), 10 MG PO QPM Allergies Coded Allergies: Penicillins (Verified Allergy, Severe, GENERALIZED AND FACIAL SWELLING, ) Sulfa Antibiotics (Verified Allergy, Severe, GENERALIZED AND FACIAL SWELLING, 05/11/18) Shellfish (Verified Allergy, Unknown, GENERALIZED AND FACIAL SWELLING, ) Physical Exam Vital Signs Date Time Temp Pulse Resp B/P (MAP) Pulse Ox O2 Delivery O2 Flow Rate FiO2 05/11/18 12:41 61 16 134/67 98 05/11/18 11:30 62 16 109/61 97 Room Air 05/11/18 10:52 67 05/11/18 10:46 96 Room Air 05/11/18 10:23 36.7 73 18 122/63 98 Room Air Physical Exam GENERAL: Awake, alert, well-appearing, in no acute distress HENT: Normocephalic, atraumatic. Oropharynx unremarkable. EYES: Normal conjunctiva. Sclera non-icteric. NECK: Supple. No nuchal rigidity. FROM. No JVD. RESPIRATORY: Clear to auscultation. CARDIAC: Regular rate, normal rhythm. Grade 2/6 systolic murmur. Extremities warm and well perfused. Pulses equal. ABDOMEN: Soft, non-distended. No tenderness to palpation. No rebound or guarding. No masses. RECTAL: Deferred. MUSCULOSKELETAL: Chest examination reveals no tenderness. The back is symmetrical on inspection without obvious abnormality. Pain to the left shoulder with movement of the shoulder. Pain is reproducible. Neurovascularly intact. Good ROM of the elbow and wrist. There is no CVA tenderness to palpation. No joint edema. LOWER EXTREMITIES: Calves are equal size bilaterally and non-tender. No edema. No discoloration. NEURO: Normal sensorium. No sensory or motor deficits noted. SKIN: No rash or jaundice noted. Medical Decision & Procedures ER Provider Diagnostic Interpretation: X-ray results as stated below per interpretation by me and the radiologist: CHEST ONE VIEW PORTABLE HISTORY: 82 years-old Male Chest pain acute atypical chest pain COMPARISON: Chest radiograph 03/04/2017 TECHNIQUE: Portable AP view of the chest FINDINGS: Prior median sternotomy. Cardiomediastinal and hilar silhouettes are within normal limits. Surgical clips project over the left mediastinal border. Calcification of the aorta. There is no pneumothorax, pleural effusion, focal airspace consolidation or overt pulmonary edema. Degenerative changes of the shoulders and spine. IMPRESSION: No acute process. The above report was generated using voice recognition software. It may contain grammatical, syntax or spelling errors. Electronically signed by: Trae Leonard M.D. 05/11/2018 11:18 AM Dictated Date/Time: 05/11/2018 11:17 AM L SHOULDER MIN 2 VIEWS ROUTINE CLINICAL HISTORY: Pt c/o left shoulder pain COMPARISON: None. DISCUSSION: Moderate degenerative change acromioclavicular joint. Mild degenerative change glenohumeral joint. No evidence for fracture or dislocation. There is no evidence for soft tissue swelling. IMPRESSION: Moderate degenerative change left shoulder. No acute process. The above report was generated using voice recognition software. It may contain grammatical, syntax or spelling errors. Electronically signed by: Rizwan Terrazas M.D. 05/11/2018 11:48 AM Dictated Date/Time: 05/11/2018 11:47 AM Laboratory Results 05/11/18 10:45 05/11/18 10:45 Test 05/11/18 10:45 05/11/18 10:52 Red Blood Count 4.07 M/uL (4.7-6.1) Mean Corpuscular Volume 79.4 fL (80-100) Mean Corpuscular Hemoglobin 24.8 pg (25-34) Mean Corpuscular Hemoglobin Concent 31.3 g/dl (32-36) RDW Standard Deviation 52.5 fL (36.4-46.3) RDW Coefficient of Variation 17.9 % (11.5-14.5) Mean Platelet Volume 9.7 fL (7.4-10.4) Prothrombin Time 11.8 SECONDS (9.0-12.0) Prothromb Time International Ratio 1.1 (0.9-1.1) Activated Partial Thromboplast Time 28.1 SECONDS (21.0-31.0) Partial Thromboplastin Ratio 1.1 Anion Gap 8.0 mmol/L (3-11) Est Creatinine Clear Calc Drug Dose 42.1 ml/min Estimated GFR () 64.4 Estimated GFR (Non- 55.6 BUN/Creatinine Ratio 18.1 (10-20) Calcium Level 8.5 mg/dl (8.5-10.1) Total Bilirubin 0.4 mg/dl (0.2-1) Aspartate Amino Transf (AST/SGOT) 19 U/L (15-37) Alanine Aminotransferase (ALT/SGPT) 25 U/L (12-78) Alkaline Phosphatase 76 U/L (45-117) Total Creatine Kinase 86 U/L (39-308) Creatine Kinase MB 1.3 ng/ml (0.5-3.6) Creatine Kinase MB Ratio 1.5 (0-3.0) Total Protein 7.6 gm/dl (6.4-8.2) Albumin 3.6 gm/dl (3.4-5.0) Globulin 4.0 gm/dl (2.5-4.0) Albumin/Globulin Ratio 0.9 (0.9-2) Bedside Troponin I < 0.030 ng/ml (0-0.045) Labs reviewed by ED physician. ECG Per My Interpretation Indication: back/shoulder pain Rate (beats per minute): 71 Rhythm: sinus rhythm Findings: T-wave inversion (Anterior), other (no ST elevation or depression) ED Course 1115: Past medical records reviewed. The patient was evaluated in room C4. A complete history and physical examination was performed. 1129: I discussed the patient's case with [place]. [place], [facility]. He is in agreement with the plan. 1200: Upon reexamination the patient is resting comfortably. I discussed results and treatment plan with the patient. He verbalizes agreement and understanding. The patient is ready for discharge. Medical Decision Differential diagnosis: Etiologies such as cardiac ischemia, aortic dissection, pulmonary embolism, pneumonia, pneumothorax, musculoskeletal, infections, pericarditis, myocarditis , esophageal rupture, gastrointestinal, as well as others were entertained. This is an 82-year-old male who presents the emergency department complaining of left shoulder pain that has been ongoing for the past 10 days ever since a fall on his outstretched arm. The patient's pain is easily reproducible. The patient does have a cardiac history and is therefore concerned it is his heart however he had serial EKGs obtained in the emergency department along with serial troponins. Based on my muscle skeletal findings I strongly suspect that this is muscle skeletal in nature. Patient was placed in a sling and I strongly encouraged him to follow-up with Dr. Mitch scott office. Patient was in agreement with the treatment plan. Medication Reconcilliation Current Medication List: was personally reviewed by me Blood Pressure Screening Patient's blood pressure: Normal blood pressure Consults Time Called: 1126 Consulting Physician: Dr. Nugent, [facility] [place] Returned Call: 1129 I discussed the patient's case with him. He is in agreement with the plan. Impression Primary Impression: Shoulder pain, left Scribe Attestation The scribe's documentation has been prepared under my direction and personally reviewed by me in its entirety. I confirm that the note above accurately reflects all work, treatment, procedures, and medical decision making performed by me. Departure Information Dispostion Home / Self-Care Referrals Anatoliy Hough M.D. Keo Nugent MD Forms School Instructions, Work Instructions, IMPORTANT VISIT INFORMATION Patient Instructions [facility], ED Sling, ED RICE, ED Shoulder Pain [facility] Additional Instructions FOllow up with DR Nugent's office Follow up with DR Hough's office You have been examined and treated today on an emergency basis only. This is not a substitute for, or an effort to provide, complete comprehensive medical care. It is impossible to recognize and treat all injuries or illnesses in a single emergency department visit. It is therefore important that you follow up closely with Dr Andino. Call as soon as possible for an appointment. Thank you for your time and consideration. I look forward to speaking with you again soon. Please don't hesitate to call us if you have any questions. Problem Qualifiers Primary Impression: Shoulder pain, left Chronicity: acute Qualified Codes: M25.512 - Pain in left shoulder
[2018-05-11 12:41] VITALS: BP 134/67; PULSE 61; O2SAT 98
== END 2018-05-11 12:45 | disposition home or self-care (01) ==
LOC: C.EDB 10:17 → C.EDC 12:45
DX: M25.512 Pain in left shoulder (principal); I48.91 Unspecified atrial fibrillation; I25.2 Old myocardial infarction; Z79.82 Long term (current) use of aspirin; Z79.84 Long term (current) use of oral hypoglycemic drugs; Z79.899 Other long term (current) drug therapy; Z88.0 Allergy status to penicillin; Z88.1 Allergy status to other antibiotic agents; Z88.2 Allergy status to sulfonamides; Z91.013 Allergy to seafood; Z95.1 Presence of aortocoronary bypass graft

== ENCOUNTER 2019-04-06 08:50 | Inpatient (IN) ==
--- NOTE | 2019-03-15 11:17 | Anesthesiology Consultation ---
Date of Service March 15, 2019 Assessment & Plan (1) Encounter for pre-operative examination: - Patient is requesting spinal for surgery due to previous difficulties with GA (surgeon aware). Patient is aware that Eliquis will need to be held for at least 72 hours prior to spinal and will discuss this with his prescriber. - Patient's last intubation was an elective glidescope intubation. Chart Review Chart Review: Acceptable Risk for Surgery and Patient seen in Pre Admission Testing Consults Requested none Teaching & Discussion Pre-Anesthesia Teaching/Discussion Notes: Instructed NPO after midnight before surgery, except medications with 15 cc of water. Medication instructions provided according to the PAT guidelines. History Surgery Operation Date: 03/23/19 10:35 Proposed Procedures p Right Heel Incision and Drainage, - Domo Royal DO s Right Heel Debridement of Ulcer, Debridement of Skin/Fascia/Bone, Implantation of Stimulan Antibiotic Beads - Domo Royal DO Height/Weight Height: 5 ft 7 in Weight: 67 kg Allergies Allergy/AdvReac Type Severity Reaction Status Date / Time Penicillins Allergy Unknown GENERALIZED Verified 03/09/19 14:32 AND FACIAL SWELLING shellfish derived Allergy Unknown GENERALIZED Verified 03/09/19 14:49 AND FACIAL SWELLING Sulfa (Sulfonamide Allergy Unknown GENERALIZED Verified 03/09/19 14:32 Antibiotics) AND FACIAL SWELLING Medications Home Medications Medication Instructions Recorded Confirmed Last Taken amiodarone 200 mg tablet 200 mg PO QPM 06/13/18 03/09/19 03/08/19 apixaban 5 mg tablet 5 mg PO BID 06/13/18 03/09/19 03/09/19 levothyroxine 50 mcg capsule 50 mcg PO QAM 06/13/18 03/09/19 03/09/19 metformin 1,000 mg tablet 1,000 mg PO BID 06/13/18 03/09/19 03/09/19 multivitamin tablet 1 tab PO QAM 06/13/18 03/09/19 03/09/19 niacin 500 mg tablet 500 mg PO BID tab 06/13/18 03/09/19 03/09/19 rosuvastatin 20 mg tablet 10 mg PO QPM tab 06/13/18 03/09/19 03/09/19 ciprofloxacin 500 mg tablet 500 mg PO BID #60 tab 03/08/19 03/09/19 03/09/19 Past Medical History Medical History Acquired deformity of left foot (Acute) Acquired deformity of right foot (Acute) Acquired hallux valgus of right foot (Acute) Diabetes mellitus with diabetic polyneuropathy (Acute) Hallux valgus (acquired), left foot (Acute) Neuropathic ulcer of right heel (Acute) A-fib (Chronic) dx 5 yr ago - cardioversion x3, most recent 1 yr ago (nydeggar) Anemia Difficult airway for intubation 03/24/17 - Elective Glidescope #4, ETT #7.5, HiLo Straight, Grade 2 View with Large Epiglottis History of anesthesia reaction AFTER HIP SURGERIES - "WAS OUT OF IT FOR MONTHS" - PT REQUESTS A SPINAL INSTEAD OF GENERAL ANESTHESIA FOR UPCOMING RIGHT HEEL SURGERY. PT DENIES HAVING ANY PROBLEMS WITH ANESTHESIA FOR ANY OTHER SURGERIES PRIOR TO HIP SURGERIES. History of dislocation of hip X2 RIGHT Thyroid disease Exercise / Class Metabolic Activity III < 4 Walking/Shop/Light housework (Limited due to foot and hip. Does walk up and down stairs at least 3-4 times per day. Denies CP or SOB unless he does the stairs consecutively, then gets mild SOB. ) Past Surgical History Surgical History Hx of CABG (Acute) 1994 - [facility]/CATH..BLOCKAGE ...TRANSFERED OUT FOR TRIPLE BYPASS History of appendectomy History of cardiac cath 1994 (PRIOR TO TRIPLE BYPASS) History of colonoscopy "HEART WENT OUT OF RHYTHM" (5 YR AGO) History of fracture COLLAR BONE/SURGERY FOR History of hernia surgery RIGHT INGUINAL History of hip surgery X2 FOR DISLOCATION RIGHT (POST RIGHT ELLEN) 03/24/17 - Elective Glidescope #4, ETT #7.5, HiLo Straight, Grade 2 View with Large Epiglottis History of neck surgery C4-5 "CADAVER BONE" History of repair of left rotator cuff History of tonsillectomy History of total right hip arthroplasty History of vascular surgery RECENT PROCEDURE BY DR GONZALES - TO HELP BLOODFLOW TO RIGHT HEEL Past Anesthesia History No Family Hx of Anesthesia Complications Difficulty with extended cognitive difficulty after general anesthesia. Would prefer to have spinal anesthesia when at all possible. History of PONV No Hx of PONV and No Hx of Motion Sickness Social History Smoking Status: Never smoker Do You Dip or Chew Tobacco: No Hx Alcohol Use: No Hx Substance Use: No substance use type: does not use Review of Systems Patient denies chest pain, shortness of breath, dyspnea on exertion, reflux, cough, wheezing, palpitations. +Joint Pain (Feet) +Palpitations (only when in a.fib) Physical Exam Vital Signs BP: 124/75 P: 80 R: 16 T: 97.7 SPO2: 98% on RA ENMT Thyromental Distance: > or= 3.5 Finger Breadths (3.5) Mallampati Class: II Neck normal visual inspection and trachea midline Respiratory normal respiratory effort Auscultation: lungs clear to auscultation bilaterally Cardiovascular Rate/Rhythm: regular rate and regular rhythm Heart Sounds: + murmur (2/6 systolic ) Neurologic moves all extremities Psychiatric Orientation: alert and oriented x 3 Testing Laboratory Results 03/15/19 11:59 03/15/19 11:59 03/15/19 03/15/19 03/15/19 11:59 11:59 Unknown PT 11.9 INR 1.2 H APTT 29.9 Hemoglobin A1c 6.9 H Urine Color Yellow Urine Appearance Clear Urine pH 5.0 Ur Specific [place] 1.023 Urine Protein Trace H Urine Glucose (UA) Negative Urine Ketones Negative Urine Nitrite Negative Ur Leukocyte Esterase Negative Urine WBC (Auto) 1-5 Urine RBC (Auto) 5-10 H U Hyaline Cast (Auto) 1-5 U Epithel Cells (Auto) 20-30 H Urine Bacteria (Auto) Negative 03/15/19 Unknown Urine Culture - Preliminary Urine,Clean Catch No growth - Less than 1,000 colonies/mL, Final report to follow. Electrocardiogram Date: 12/25/18 Findings: + no change from (01/03/18) Sinus rhythm with occasional supraventricular premature complexes @ 64 bpm. Chest X-Ray Date: 02/19/19 FINDINGS: Prior median sternotomy. Diaphragms smooth. Lungs are clear. IMPRESSION: No acute process. Echocardiogram Date: 02/19/19 EF: >70% 1. Normal left ventricular size with hyperdynamic systolic function. EF >70%. No RWMA. Moderate cLVH. Grade I diastolic dysfunction (abnormal relaxation pattern). 2. Mildly dilated RV with grossly normal systolic function. 3. Mild right atrial dilation. 4. There is mild to moderate mitral annular calcification. 5. Normal estimated right ventricular systolic pressure. 6. Compared to prior study on 05/29/16, sinus rhythm has replaced atrial flutter.
--- NOTE | 2019-03-15 11:22 | PAT Medication Instructions ---
Medication Instructions Date of Service March 15, 2019 Home Medications Medication Instructions Recorded ciprofloxacin 500 mg tablet 500 mg PO BID #60 tab 03/08/19 amiodarone 200 mg tablet 200 mg PO QPM apixaban 5 mg tablet 5 mg PO BID levothyroxine 50 mcg capsule 50 mcg PO QAM metformin 1,000 mg tablet 1,000 mg PO BID multivitamin tablet 1 tab PO QAM niacin 500 mg tablet 500 mg PO BID rosuvastatin 20 mg tablet 10 mg PO QPM ciprofloxacin 500 mg tablet 500 mg PO BID ASK your prescriber and surgeon apixaban 5 mg tablet 5 mg PO BID (needs to be held for 72 hours for spinal anesthesia) STOP taking 24 hours before surgery niacin 500 mg tablet 500 mg PO BID DO NOT take the morning of surgery metformin 1,000 mg tablet 1,000 mg PO BID multivitamin tablet 1 tab PO QAM Take morning of surgery With a small sip of water, OTHERWISE NOTHING TO EAT OR DRINK AFTER MIDNIGHT: levothyroxine 50 mcg capsule 50 mcg PO QAM ciprofloxacin 500 mg tablet 500 mg PO BID Take evening before surgery metformin 1,000 mg tablet 1,000 mg PO BID rosuvastatin 20 mg tablet 10 mg PO QPM ciprofloxacin 500 mg tablet 500 mg PO BID Other Notes If you have any questions please call us at [phone] or [phone] or [phone] or [phone]
[2019-03-15 12:24] LABS: Basophils # (auto) 0.04 K/uL (0-0.2); Basophils % (auto) 0.6 %; Eosinophils % (auto) 1.6 %; Hematocrit (blood only) 30.1 % (42-52); Hemoglobin 9.5 g/dL (14.0-18.0); Immature Granulocytes # (auto) 0.01 K/uL (0.00-0.02); Immature Granulocytes % (auto) 0.2 %; Lymphocytes # (auto) 1.17 K/uL (1.2-3.4); Lymphocytes % (auto) 18.7 %; Mean Corpuscular Hgb Conc 31.6 g/dL (32-36); Mean Platelet Volume 9.7 fL (7.4-10.4); Monocytes # (auto) 0.75 K/uL (0.11-0.59); Neutrophils % (auto) 66.9 %; Platelet Count 284 K/uL (130-400); RDW Coefficient of Variation 16.4 % (11.5-14.5); RDW Standard Deviation 46.8 fL (36.4-46.3); Red Blood Count 3.86 M/uL (4.7-6.1); White Blood Count 6.27 K/uL (4.8-10.8)
[2019-03-15 12:31] LABS: Appearance Urine Clear (Clear); Bacteria Urine Automated Negative (Negative); Bilirubin Urine Negative (Negative); Blood Urine Negative (Negative); Color Urine Yellow; Epithelial Cell Urine Auto 20-30 /lpf (0-5); Glucose Urine UA Negative (Negative); Ketones Urine Negative (Negative); Leukocyte Esterase Urine Negative (Negative); Nitrite Urine Negative (Negative); Protein Urine Trace (Negative); Specific Gravity Urine 1.023 (1.000-1.030); Urobilinogen Urine Negative (Negative)
[2019-03-15 12:34] LABS: Estimated Average Glucose 151 mg/dl; Hemoglobin A1C 6.9 % (4.5-5.6)
[2019-03-15 12:35] LABS: INR 1.2 (0.9-1.1); Partial Thromboplastin Ratio 1.1; Partial Thromboplastin Time 29.9 Seconds (21.0-31.0); Prothrombin Time 11.9 Seconds (9.0-12.0)
[2019-03-15 14:10] LABS: Albumin Level 3.6 gm/dl (3.4-5.0); Calcium 9.6 mg/dl (8.5-10.1); Creatinine Clr Calc Pharmacy 42.8 ml/min; Est GFR (Non-African American) 55.2; Potassium 4.7 mmol/L (3.5-5.1)
--- NOTE | 2019-04-05 23:23 | History & Physical Report ---
Date of Service April 05, 2019 Assessment & Plan (1) Heel ulcer due to DM: Schedule a right heel debridement DM ulcer, I & D heel ulcer, debridement/curettage calcaneal osteomyelitis, implantation antibiotic laden Stimulan antibiotic beads. All potential risks, benefits, complications, alternatives, and rehab have been discussed with the patient and he wishes to proceed. He will be scheduled for 04.06.19 with plan for admission after procedure to monitor cultures and have appropriate IV antibiotic tx. (2) Acute osteomyelitis of right calcaneus: History of Present Illness Chief Complaint: right heel ulcer Primary Care Provider: NO PCP This is a patient with a long hx of a right heel ulceration. He was treated conservatively with wound care but he wasn't making progress. An MRI was ordered that noted mild bone marrow edema in the posterior aspect of the heel. He is now being set up for surgical debridement of the ulcer and osteomyelitis. Allergies Allergy/AdvReac Type Severity Reaction Status Date / Time Penicillins Allergy Unknown GENERALIZED Verified 03/16/19 14:44 AND FACIAL SWELLING shellfish derived Allergy Unknown GENERALIZED Verified 03/16/19 14:44 AND FACIAL SWELLING Sulfa (Sulfonamide Allergy Unknown GENERALIZED Verified 03/16/19 14:44 Antibiotics) AND FACIAL SWELLING Home Medications Home Medications Medication Instructions Recorded Confirmed Type amiodarone 200 mg tablet 200 mg PO QPM 06/13/18 03/16/19 History apixaban 5 mg tablet 5 mg PO BID 06/13/18 03/16/19 History levothyroxine 50 mcg capsule 50 mcg PO QAM 06/13/18 03/16/19 History metformin 1,000 mg tablet 1,000 mg PO BID 06/13/18 03/16/19 History multivitamin tablet 1 tab PO QAM 06/13/18 03/16/19 History niacin 500 mg tablet 500 mg PO BID tab 06/13/18 03/16/19 History rosuvastatin 20 mg tablet 10 mg PO QPM tab 06/13/18 03/16/19 History ciprofloxacin 500 mg tablet 500 mg PO BID #60 tab 03/08/19 03/09/19 Rx Past Med/Surg History Medical History Acquired deformity of left foot (Acute) Acquired deformity of right foot (Acute) Acquired hallux valgus of right foot (Acute) Diabetes mellitus with diabetic polyneuropathy (Acute) Hallux valgus (acquired), left foot (Acute) Neuropathic ulcer of right heel (Acute) A-fib (Chronic) dx 5 yr ago - cardioversion x3, most recent 1 yr ago (nydeggar) Anemia History of dislocation of hip X2 RIGHT Thyroid disease Surgical History Hx of CABG (Acute) 1994 - [facility]/CATH..BLOCKAGE ...TRANSFERED OUT FOR TRIPLE BYPASS Difficult airway for intubation 03/24/17 - Elective Glidescope #4, ETT #7.5, HiLo Straight, Grade 2 View with Large Epiglottis History of anesthesia reaction AFTER HIP SURGERIES - "WAS OUT OF IT FOR MONTHS" - PT REQUESTS A SPINAL INSTEAD OF GENERAL ANESTHESIA FOR UPCOMING RIGHT HEEL SURGERY. PT DENIES HAVING ANY PROBLEMS WITH ANESTHESIA FOR ANY OTHER SURGERIES PRIOR TO HIP SURGERIES. History of appendectomy History of cardiac cath 1994 (PRIOR TO TRIPLE BYPASS) History of colonoscopy "HEART WENT OUT OF RHYTHM" (5 YR AGO) History of fracture COLLAR BONE/SURGERY FOR History of hernia surgery RIGHT INGUINAL History of hip surgery X2 FOR DISLOCATION RIGHT (POST RIGHT ELLEN) 03/24/17 - Elective Glidescope #4, ETT #7.5, HiLo Straight, Grade 2 View with Large Epiglottis History of neck surgery C4-5 "CADAVER BONE" History of repair of left rotator cuff History of tonsillectomy History of total right hip arthroplasty History of vascular surgery RECENT PROCEDURE BY DR GONZALES - TO HELP BLOODFLOW TO RIGHT HEEL Social History Preferred Language: Martiniquais Communication Ability: Effective Batch Records Clerk Required: No Beliefs That Will Affect Care: None Current Living Situation: Spouse Other Information That Helps Us Care for You: No Feels Safe at Home: Yes Smoking Status: Never smoker Do You Dip or Chew Tobacco: No Second Hand Exposure: No Hx Alcohol Use: No Hx Substance Use: No Physical Exam Constitutional: well developed and well nourished; no acute distress ENMT: external ear and nose normal, oropharynx normal Neck: trachea midline, no thyromegaly Respiratory: normal respiratory effort, lungs clear to auscultation Cardiovascular: Rate/Rhythm: + irregularly irregular Gastrointestinal (Abdomen): normal bowel sounds, soft, nontender, no hepatosplenomegaly Musculoskeletal: Right heel: posteroplantar heel ulceration. No erythema. No drainage from the site. Neurologic: Motor/Sensory: + sensory deficit (bilateral LE)
[~2019-04-06 08:50] MED LIST changes: -AMIO200T7 PO; -APIX1TAB3 PO; -ASPI81TA28 PO; -CIPR1TAB11 PO; -LDDP5 TD; -LEVO50TA6 PO; +LR 500ML BOLUS, THEN 15ML/HR IV SCH; -METF1TAB53 PO; -MULTTAB58 PO; -NIAC500T11 PO; -OXYC-737 PO; -ROSU20TA PO
[2019-04-06] MEDS ORDERED: BUPIVACAINE 0.5 % 5 MG/1 ML PF 10ML VIAL ONE (11:05)
[2019-04-06] MEDS ORDERED: ONDANSETRON INJ 2 MG/ML 2 ML VIAL ONE (13:14)
[2019-04-06] MEDS ORDERED: PROPOFOL IV EMULSION 10 MG/ML 20 ML VIAL IV ONE (13:14)
[2019-04-06] MEDS ORDERED: LIDOCAINE HCL 2% 2 ML VIAL/AMP(20MG/ML) INFIL ONE (13:14)
[2019-04-06] MEDS ORDERED: fentaNYL citrate 100 MCG/2 ML VIAL ONE (13:15)
[2019-04-06] MEDS ORDERED: ePHEDrine sulfate 50 MG/ML AMP IV PRN (14:08)
[2019-04-06] MEDS ORDERED: fentaNYL citrate 100 MCG/2 ML VIAL IV PRN (14:08)
[2019-04-06] MEDS ORDERED: ONDANSETRON INJ 2 MG/ML 2 ML VIAL IV PRN ×2 (14:08→15:42)
[2019-04-06] MEDS ORDERED: ATROPINE SULFATE 0.1 MG/ML 10ML SYR IV PRN (14:08)
--- NOTE | 2019-04-06 14:21 | History & Physical Bridge Note ---
Date of Service April 06, 2019 History & Physical Bridge Note I have examined the patient, reviewed the History & Physical and in the interval since the performance of the History & Physical I have noted the following changes of clinical significance: no changes noted
[2019-04-06] MEDS ORDERED: BACITRACIN INJ 50,000 UNIT VIAL ONE (14:36)
[2019-04-06] MEDS ORDERED: VANCOMYCIN HCL 1000MG/20ML VIAL ONE (14:36)
[2019-04-06] MEDS ORDERED: GENTAMICIN SULFATE 40 MG/ML 2 ML VIAL ONE (14:36)
[2019-04-06] MEDS ORDERED: CLINDAMYCIN 600 MG/54 ML D5W IV ONE (14:44)
[2019-04-06] MEDS ORDERED: CLINDAMYCIN 600 MG in DEXTROSE 5% 50 ML IV ONE (14:45)
[2019-04-06] MEDS ORDERED: NALOXONE HCL 0.4 MG/1 ML VIAL/CARP IV PRN (15:42)
[2019-04-06] MEDS ORDERED: METOCLOPRAMIDE HCL INJ 5 MG/ML 2 ML VIAL IV PRN (15:42)
[2019-04-06] MEDS ORDERED: BISACODYL 10 MG SUPP PR PRN (15:42)
[2019-04-06] MEDS ORDERED: HYDROCODONE/ACETAMOPHEN 5/325MG TAB PO PRN (15:42)
[2019-04-06] MEDS ORDERED: MAGNESIUM HYDROXIDE SUSP 30 ML UDC PO PRN (15:42)
[2019-04-06] MEDS ORDERED: SODIUM CHLORIDE 0.9% 1000ML 1,000 ML IV SCH (15:45)
[2019-04-06] MEDS ORDERED: TAMSULOSIN HCL 0.4 MG CAP PO PRN (15:46)
[2019-04-06] MEDS ORDERED: HYDROmorphone INJ 0.5 MG/0.5 ML SYR IV PRN (15:46)
[2019-04-06] MEDS ORDERED: BUPIVACAINE 0.5 % 5 MG/1 ML MPF 30ML VIAL ONE (15:51)
[2019-04-06] MEDS ORDERED: NO NSAIDS SCH (16:00)
--- NOTE | 2019-04-06 16:12 | Post Operative Brief Note ---
Immediate Post Op Note v1 Date of Surgery April 06, 2019 Pre & Post Diagnosis Operation Date: 04/06/19 11:20 Pre-Op Diagnosis: Right Heel calcaneal osteomyelitis Post-Op Diagnosis: Right Heel calcaneal osteomyelitis, abscess right heel, necrosis of Achilles tendon Procedure Operation Date: 04/06/19 11:20 Actual Procedures p Right Heel Incision and Drainage abscess,(Right) - Domo Royal DO s Right Heel Debridement of Ulcer, Debridement of Skin/Fascia/Achilles tendon/ subcutaneous tissue/ calcaneal bone, Implantation of 5 cc Stimulan Antibiotic Beads(Right) - Domo Royal DO Surgeon Domo Royal DO Bee Raiser None Estimated Blood Loss 3 Findings Consistent with Post-Op Diagnosis Specimens Aerobic/anaerobic/Gram stain specimen right heel deep Anesthesia Type MAC Regional Complications none Disposition Accompanied Patient To Recovery: Yes Disposition: Recovery Room
--- NOTE | 2019-04-06 16:32 | Anesthesiology Progress Note ---
Date of Service April 06, 2019 Anesthesia Post Procedure Vital Signs Vital Signs: Temp Pulse Resp BP Pulse Ox 04/06/19 10:02 36.4 C L 67 20 153/82 H 97 Transfer of Care Handoff Completed per policy Notes Mental Status: alert / awake / arousable Patient Amnestic to Procedure: Yes Nausea / Vomiting: adequately controlled Pain: adequately controlled Airway Patency, RR, SpO2: stable & adequate BP & HR: stable & adequate Hydration State: stable & adequate Neuraxial Anesthesia: was administered and sensory block is resolving Anesthetic Complications: no major complications apparent
[2019-04-06] MEDS ORDERED: CARBOHYDRATES FOR HYPOGLYCEMIA PO PRN (17:38)
[2019-04-06] MEDS ORDERED: GLUCAGON FOR INJ 1 MG VIAL SQ PRN (17:38)
[2019-04-06] MEDS ORDERED: DEXTROSE 50% 50 ML SYRINGE IV PRN (17:38)
[2019-04-06] MEDS ORDERED: GLUCOSE 10 TABS/TUBE PO PRN (17:38)
[2019-04-06] MEDS ORDERED: GLUCOSE 40% GEL 15 GM TUBE PO PRN (17:38)
[2019-04-06] MEDS ORDERED: METFORMIN HCL 500 MG TAB PO SCH (18:00)
--- NOTE | 2019-04-06 18:23 | Hospitalist Consultation ---
Date of Consultation April 06, 2019 Assessment & Plan (1) Acute osteomyelitis of right calcaneus: - Previously followed with Dr. Julien, on Cipro PO as outpatient. Wound cultures were +Enterobacter. - S/p right heel I&D, debridement of ulcer, skin/fascia/achilles tendon/subQ tissue/calcaneal bone and implantation of antibiotic beads this afternoon. - Currently receiving Clindamycin IV for surgical prophylaxis for skin jennifer; will also restart home Cipro 500 mg BID for Enterobacter -await repeat cultures taken intraoperatively - Pain control per primary team. - Will restart home Eliquis on 04/07/19. - Discharge planning with case management. (2) Afib: In sinus rhythm here - Resume home Eliquis in the evening on 04/07/19. - Continue home Amiodarone as prescribed. (3) CAD (coronary artery disease): - S/p CABG in 1994. - Most recent TTE in January 2019 showed preserved EF, no wall motion abnormalities. - Continue statin, niacin as prescribed. (4) HLD (hyperlipidemia): - Continue statin, niacin as prescribed. (5) Peripheral arterial disease: - S/p angiography with Dr. Gonzales in January 2019; had mild to mod RLE distal SFA stenosis and minimal left SFA/popliteal disease. No intervention was performed and was deemed to have adequate flow to the heel - Continue statin, Eliquis as prescribed (6) CKD (chronic kidney disease), stage III: - Renally dose all meds. - On IV fluids at 100 cc/hr. (7) Hypothyroidism: - Continue Synthroid 50 mcg daily. - Most recent TSH was 1.5 in Oct 2018. (8) DM II (diabetes mellitus, type II), controlled: - A1C was 6.9 on 03/15/19. - Hold home Metformin. - Start accuchecks ac/hs and SSI coverage. (9) Anemia: - Chronic microcytic anemia noted in our system. - No recent iron studies -- will order in the AM. Patient reports having a GI workup in the past that was unrevealing-will look into old records for this - On Ferrous sulfate daily per home records -- will start as inpatient. (10) DVT prophylaxis: - SCDs; resume home Eliquis on 04/07/19. Dispo: Will continue to follow, please call with any questions. Supervising Physician Co-Signing Physician Notes PA Supervision Note: I personally saw and examined the patient. I verified all pride points and agree with EMY Proctor with the following exceptions and/or additions: DOing well post op, no CP or SOB. Reviewed history in detail with him Vitals reviewed NAD, AAOx3 RRR no mgr CTAB no wcr Abd +BS soft NT ND Ext RLE in dressing with LUPE wrap 83 yo male with RLE heel wound and OM s/p debridement -continue abx and plan as above History of Present Illness Reason for Consultation: Medical Management Attending Physician: Domo Royal, DO History of Present Illness Mr. iL is an 83 year old male with past medical history of A. fib, Hypothyroidism, CAD s/p CABG, HLD, Diabetes Mellitus, Right heel calcaneal osteomyelitis who presented for a right heel I&D, debridement of ulcer and implantation of antibiotic beads. Pt. is doing well post op. Denies pain in right foot, chest pain, SOB, N/V. Has not voided yet in post op setting. Last BM was 2 days ago. Allergies Allergy/AdvReac Type Severity Reaction Status Date / Time Penicillins Allergy Unknown GENERALIZED Verified 04/06/19 09:55 AND FACIAL SWELLING shellfish derived Allergy Unknown GENERALIZED Verified 04/06/19 09:55 AND FACIAL SWELLING Sulfa (Sulfonamide Allergy Unknown GENERALIZED Verified 04/06/19 09:55 Antibiotics) AND FACIAL SWELLING Home Medications Home Medications Medication Instructions Recorded Confirmed Type amiodarone 200 mg tablet 200 mg PO QPM 06/13/18 04/06/19 History apixaban 5 mg tablet 5 mg PO BID 06/13/18 04/06/19 History levothyroxine 50 mcg capsule 50 mcg PO QAM 06/13/18 04/06/19 History metformin 1,000 mg tablet 1,000 mg PO BID 06/13/18 04/06/19 History multivitamin tablet 1 tab PO QAM 06/13/18 04/06/19 History niacin 500 mg tablet 500 mg PO BID tab 06/13/18 04/06/19 History rosuvastatin 20 mg tablet 10 mg PO QPM tab 06/13/18 04/06/19 History ciprofloxacin 500 mg tablet 500 mg PO BID #60 tab 03/08/19 04/06/19 Rx Patient History Medical History CAD (coronary artery disease) PAD (peripheral artery disease) Acquired deformity of left foot (Acute) Acquired deformity of right foot (Acute) Acquired hallux valgus of right foot (Acute) Diabetes mellitus with diabetic polyneuropathy (Acute) Hallux valgus (acquired), left foot (Acute) Neuropathic ulcer of right heel (Acute) A-fib (Chronic) dx 5 yr ago - cardioversion x3, most recent 1 yr ago (nydeggar) Anemia History of dislocation of hip X2 RIGHT Thyroid disease Surgical History Hx of CABG (Acute) 1994 - [facility]/CATH..BLOCKAGE ...TRANSFERED OUT FOR TRIPLE BYPASS Difficult airway for intubation 03/24/17 - Elective Glidescope #4, ETT #7.5, HiLo Straight, Grade 2 View with Large Epiglottis History of anesthesia reaction AFTER HIP SURGERIES - "WAS OUT OF IT FOR MONTHS" - PT REQUESTS A SPINAL INSTEAD OF GENERAL ANESTHESIA FOR UPCOMING RIGHT HEEL SURGERY. PT DENIES HAVING ANY PROBLEMS WITH ANESTHESIA FOR ANY OTHER SURGERIES PRIOR TO HIP SURGERIES. History of appendectomy History of cardiac cath 1994 (PRIOR TO TRIPLE BYPASS) History of colonoscopy "HEART WENT OUT OF RHYTHM" (5 YR AGO) History of fracture COLLAR BONE/SURGERY FOR History of hernia surgery RIGHT INGUINAL History of hip surgery X2 FOR DISLOCATION RIGHT (POST RIGHT ELLEN) 03/24/17 - Elective Glidescope #4, ETT #7.5, HiLo Straight, Grade 2 View with Large Epiglottis History of neck surgery C4-5 "CADAVER BONE" History of repair of left rotator cuff History of tonsillectomy History of total right hip arthroplasty History of vascular surgery RECENT PROCEDURE BY DR GONZALES - TO HELP BLOODFLOW TO RIGHT HEEL Family History Mother Alzheimer disease Father Arthritis Social History Preferred Language: [place]an Communication Ability: Effective Director Call Required: No Beliefs That Will Affect Care: None Current Living Situation: Spouse 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 Other Information That Helps Us Care for You: No Feels Safe at Home: Yes Smoking Status: Never smoker Do You Dip or Chew Tobacco: No Second Hand Exposure: No Hx Alcohol Use: Yes (Socially) Hx Substance Use: No Review of Systems Review of Systems: All systems reviewed & are unremarkable except as noted in HPI & below Constitutional: no fever, no chills, no fatigue, no weakness and no anorexia Respiratory: no cough, no dyspnea, no dyspnea on exertion and no wheezing Cardiovascular: no chest pain, no palpitations and no edema Gastrointestinal: no abdominal pain, no nausea, no vomiting, no constipation and no diarrhea/loose stools Genitourinary: no difficulty urinating Musculoskeletal: no back pain and no joint pain Integumentary: + non-healing lesions Allergy / Immunological: no rash Physical Exam Physical Exam: General: Resting comfortably HEENT: NC/AT; PERRLA with EOMI; [place] conjunctiva, MMM. No erythema of posterior pharynx Neck: Supple and nontender Cardiac: Irregular, rate controlled Lungs: CTA bilaterally; No rhonchi, wheezing, or rales Abdomen: Bowel normoactive X 4; Nontender to palpation Extremities: Warm. No edema present. Dressing in place over right foot. Neuro: No focal weakness Skin: No rash Results & Data Vital Signs (Past 12 Hours) Vital Signs Temp Pulse Resp BP Pulse Ox 04/06/19 17:40 36.7 C 67 16 157/75 H 96 04/06/19 16:55 36.8 C 62 18 141/85 H 97 04/06/19 16:45 36.8 C 62 19 124/91 100 04/06/19 16:35 36.8 C 65 27 H 139/84 100 04/06/19 16:25 36.3 C L 64 23 158/71 H 98 04/06/19 16:15 36.3 C L 63 18 138/71 100 04/06/19 16:05 36.3 C L 66 16 137/59 L 100 04/06/19 10:02 36.4 C L 67 20 153/82 H 97 Laboratory Results 04/06/19 04/06/19 Range/Units 17:27 09:51 POC Glucose 90 89 (70-99) PG Care Time/CCT Total # of Minutes Spent Total Time Spent with Patient: Total time spent is greater than 50% in coordination of care (as documented) at patient's floor/unit and/or counseling patient:
[2019-04-06] MEDS: CIPROFLOXACIN 500 MG TAB PO SCH (20:36)
[2019-04-06] MEDS: NIACIN 500 MG TAB PO SCH (20:36)
[2019-04-06] MEDS: SENNA 8.6 MG TAB PO SCH (20:36)
[2019-04-06] MEDS: AMIODARONE 200 MG TAB PO SCH (20:36)
[2019-04-06] MEDS: ROSUVASTATIN CALCIUM 10 MG TAB PO SCH (20:36)
[2019-04-06] MEDS: DOCUSATE SODIUM 100 MG CAP PO SCH (20:36)
[2019-04-06] MEDS: CLINDAMYCIN 600 MG in DEXTROSE 5% 50 ML IV SCH (21:53)
--- NOTE | 2019-04-06 21:53 | Infectious Disease Consult ---
Date of Consultation April 06, 2019 Assessment & Plan (1) Acute osteomyelitis of right calcaneus: Patient with acute osteomyelitis of the right heel status post debridement. Patient to continue on current antibiotics pending operative cultures. Will adjust once available. Will follow. History of Present Illness Reason for Consultation: Postoperative right heel osteomyelitis Attending Physician: Domo Royal DO History of Present Illness 83-year-old male well-known to me from previous follow-up at the wound center, with diabetes mellitus, peripheral neuropathy coronary artery disease hypertension, hyperlipidemia, peripheral arterial disease was been followed for nonhealing right calcaneal wound. He has been treated with debridement, and has been on ciprofloxacin with previous cultures growing Enterobacter. He has been found to have evidence of developing osteomyelitis of the calcaneus, will was admitted now and has undergone surgical debridement. Operative cultures and Gram stain are pending. Patient has not had any associated fever or chills. Pain in his foot currently minimal. Allergies Allergy/AdvReac Type Severity Reaction Status Date / Time Penicillins Allergy Unknown GENERALIZED Verified 04/06/19 09:55 AND FACIAL SWELLING shellfish derived Allergy Unknown GENERALIZED Verified 04/06/19 09:55 AND FACIAL SWELLING Sulfa (Sulfonamide Allergy Unknown GENERALIZED Verified 04/06/19 09:55 Antibiotics) AND FACIAL SWELLING Home Medications Home Medications Medication Instructions Recorded Confirmed Type amiodarone 200 mg tablet 200 mg PO QPM 06/13/18 04/06/19 History apixaban 5 mg tablet 5 mg PO BID 06/13/18 04/06/19 History levothyroxine 50 mcg capsule 50 mcg PO QAM 06/13/18 04/06/19 History metformin 1,000 mg tablet 1,000 mg PO BID 06/13/18 04/06/19 History multivitamin tablet 1 tab PO QAM 06/13/18 04/06/19 History niacin 500 mg tablet 500 mg PO BID tab 06/13/18 04/06/19 History rosuvastatin 20 mg tablet 10 mg PO QPM tab 06/13/18 04/06/19 History ciprofloxacin 500 mg tablet 500 mg PO BID #60 tab 03/08/19 04/06/19 Rx Patient History Medical History CAD (coronary artery disease) PAD (peripheral artery disease) Acquired deformity of left foot (Acute) Acquired deformity of right foot (Acute) Acquired hallux valgus of right foot (Acute) Diabetes mellitus with diabetic polyneuropathy (Acute) Hallux valgus (acquired), left foot (Acute) Neuropathic ulcer of right heel (Acute) A-fib (Chronic) dx 5 yr ago - cardioversion x3, most recent 1 yr ago (nydeggar) Anemia History of dislocation of hip X2 RIGHT Thyroid disease Surgical History Hx of CABG (Acute) 1994 - [facility]/CATH..BLOCKAGE ...TRANSFERED OUT FOR TRIPLE BYPASS Difficult airway for intubation 03/24/17 - Elective Glidescope #4, ETT #7.5, HiLo Straight, Grade 2 View with Large Epiglottis History of anesthesia reaction AFTER HIP SURGERIES - "WAS OUT OF IT FOR MONTHS" - PT REQUESTS A SPINAL INSTEAD OF GENERAL ANESTHESIA FOR UPCOMING RIGHT HEEL SURGERY. PT DENIES HAVING ANY PROBLEMS WITH ANESTHESIA FOR ANY OTHER SURGERIES PRIOR TO HIP SURGERIES. History of appendectomy History of cardiac cath 1994 (PRIOR TO TRIPLE BYPASS) History of colonoscopy "HEART WENT OUT OF RHYTHM" (5 YR AGO) History of fracture COLLAR BONE/SURGERY FOR History of hernia surgery RIGHT INGUINAL History of hip surgery X2 FOR DISLOCATION RIGHT (POST RIGHT ELLEN) 03/24/17 - Elective Glidescope #4, ETT #7.5, HiLo Straight, Grade 2 View with Large Epiglottis History of neck surgery C4-5 "CADAVER BONE" History of repair of left rotator cuff History of tonsillectomy History of total right hip arthroplasty History of vascular surgery RECENT PROCEDURE BY DR GONZALES - TO HELP BLOODFLOW TO RIGHT HEEL Family History Mother Alzheimer disease Father Arthritis Social History Preferred Language: Urdu Communication Ability: Effective Town Justice Required: No Beliefs That Will Affect Care: None marital status: Current Living Situation: Spouse 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 Other Information That Helps Us Care for You: No Feels Safe at Home: Yes Smoking Status: Never smoker Do You Dip or Chew Tobacco: No Second Hand Exposure: No Hx Alcohol Use: Yes (Socially) Hx Substance Use: No Review of Systems Review of Systems: All systems reviewed & are unremarkable except as noted in HPI & below Physical Exam Constitutional: WD/WN, vitals as above comfortable; no acute distress Eyes: PERRL, conjunctivae normal, anicteric sclerae ENMT: external ear and nose normal, oropharynx normal Neck: trachea midline, no thyromegaly neck nontender Respiratory: normal respiratory effort, lungs clear to auscultation normal percussion; does not use accessory muscles Cardiovascular: Rate/Rhythm: regular rate and regular rhythm Heart Sounds: normal S1 and normal S2; no gallop, no murmur and no cardiac rub Vessels: normal peripheral pulses; no JVD Gastrointestinal (Abdomen): normal bowel sounds, soft, nontender, no hepatosplenomegaly Musculoskeletal: no cyanosis or clubbing, extremities motor strength 5/5 Spine: thoracic spine normal to inspection and lumbar spine normal to inspection; no cervical spinal tenderness Skin: no rashes, warm and dry normal turgor Surgical dressing intact right foot Neurologic: patellar DTR's 2+ bilat, sensation intact no focal motor deficits Psychiatric: A+Ox3, euthymic affect Orientation: cooperative Lymphatic: no cervical or axillary lymphadenopathy no inguinal lymphadenopathy Results & Data Vital Signs (Past 12 Hours) Vital Signs Temp Pulse Resp BP Pulse Ox 04/06/19 20:17 36.7 C 67 18 137/71 98 04/06/19 19:08 36.7 C 71 16 152/78 H 98 04/06/19 18:12 36.7 C 70 16 175/70 H 98 04/06/19 17:40 36.7 C 67 16 157/75 H 96 04/06/19 17:10 36.6 C 62 16 155/75 H 98 04/06/19 16:55 36.8 C 62 18 141/85 H 97 04/06/19 16:45 36.8 C 62 19 124/91 100 04/06/19 16:35 36.8 C 65 27 H 139/84 100 04/06/19 16:25 36.3 C L 64 23 158/71 H 98 04/06/19 16:15 36.3 C L 63 18 138/71 100 04/06/19 16:05 36.3 C L 66 16 137/59 L 100 04/06/19 10:02 36.4 C L 67 20 153/82 H 97 Laboratory Results Laboratory Results - last 48 hr 04/06/19 04/06/19 04/06/19 09:51 17:27 20:33 POC Glucose 89 90 101 H Diagnostic Findings Microbiology 03/15/19 Unknown Urine,Clean Catch Urine Culture - Final No growth - less than 1,000 colonies/mL.
[2019-04-06] MEDS: INSULIN ASPART 100 UNITS/ML 3 ML PEN SC SCH (21:58)
--- NOTE | 2019-04-07 00:33 | Operative Report ---
DATE OF OPERATION: 04/06/2019 PREOPERATIVE DIAGNOSES: 1. Right posterior calcaneal osteomyelitis. 2. Abscess of the right heel. 3. Necrosis of the Achilles tendon insertion. POSTOPERATIVE DIAGNOSES: 1. Right posterior calcaneal osteomyelitis. 2. Abscess of the right heel. 3. Necrosis of the Achilles tendon insertion. PROCEDURES: 1. Right heel incision and drainage abscess. 2. Debridement of calcaneal osteomyelitis. 3. Debridement of skin, tendon, fascia, and subcutaneous tissue and Achilles tendon at the posterior heel. 4. Implantation antibiotic Stimulan beads 5 mL SURGEON: Domo Royal DO INSTRUCTOR NURSE: None. ANESTHESIA: Local with sedation. SPECIMENS: Aerobic, anaerobic Gram stain from the right deep heel. DRAINS: None. COMPLICATIONS: None. BLOOD LOSS: 5 mL PERTINENT HISTORY: This is an 83-year-old gentleman who has had an ulcer formed at the posterior aspect of his right heel. He had treated this conservatively for several months with the assistance of several practitioners; however, unfortunately he is unable to get it to improve or heel. He is on several courses of antibiotics and all failed. He then had an MRI which demonstrated osteomyelitis definitively in the posterior calcaneal tuberosity and was then scheduled for surgery as indicated. All potential risks, benefits, complications, alternatives, rehab, potential for incomplete relief of symptoms, need for further surgery, DVT, PE, , persistent pain, swelling, scarring, weakness, neurovascular injury or wound complications were discussed with the patient. The patient decided to proceed with the procedure as indicated. PROCEDURE: The patient was taken to operative suite, placed supine on the operating table. I reviewed consent and identification of proper operative site, the patient was sedated and under monitored anesthesia care and tourniquet was applied high on the right thigh over cast padding. Right lower extremity was then sterilely prepped and draped in the usual fashion, elevated and tourniquet inflated to 325 mmHg. There was no exsanguination due to the nature of his osteomyelitis in the calcaneus. A 15 blade scalpel was then used to carefully debride the heel ulcer which was measured approximately 1 cm in diameter. This was debrided down to the subcutaneous tissue through the skin and down to the level of the subQ and fascia. Next, the abscess pocket was then entered with a 15 blade scalpel and there was noted to be abundant purulent material and some bleeding. Next, this was cultured for aerobic, anaerobic and Gram stain specimens. It was then passed off the field. A curette and rongeur was then used to debride the skin, subcutaneous tissue, fascia and also the Achilles tendon on the way down to the calcaneal bone. The bone was then curetted with a medium and larger sized curettes until the softened necrotic bone was then completely shelled out. This created a defect of approximately 5 mm into the bone. Next, pulsatile lavage with bacitracin was then used to cleanse the posterior heel incision through and through to the calcaneal bone and surrounding soft tissues. The Achilles tendon was then debrided with a 15 blade scalpel as well as the fascia until helping healthy appearing tissue was noted. Once this was completed Stimulan antibiotic beads 5 mL of then mixed with 1 unit of vancomycin and 1 unit of gentamicin. These were mixed together and placed in the bead mat; after these beads formed the appropriate of beads then placed into the posterior calcaneal bone and soft tissue. Next, the previously rounded ulcer was then reshaped into an ellipse with the resection of small triangular piece of tissue superior and inferiorly allowing the defect to close side to side with interrupted 3-0 Vicryl and after placing the antibiotic beads within the bead pouch created. Next, a local injection was performed approximately 11-12 mL of 0.5% Marcaine plain around the surgical site and then a sterile compressive dressing was applied consisting of Xeroform gauze, sterile 4 x 4's, ABD pad, cast padding and Tucker wrap. The tourniquet was released, the patient was awakened and taken to recovery in stable condition. I attest to the content of the Intraoperative Record and any orders documented therein. Any exception s are noted below.
[2019-04-07] MEDS: CLINDAMYCIN 600 MG in DEXTROSE 5% 50 ML IV SCH ×3 (05:50→21:36)
[2019-04-07] MEDS: LEVOTHYROXINE SODIUM 50 MCG TABLET PO SCH (05:50)
[2019-04-07] MEDS ORDERED: NON-FORMULARY MEDICATION (Levothyroxine 50 MCG) PO SCH (06:30)
[2019-04-07] MEDS: TRAMADOL HCL 50 MG TABLET PO PRN ×2 (06:38→17:12)
[2019-04-07 07:12] LABS: Hematocrit (blood only) 30.5 % (42-52); Hemoglobin 9.7 g/dL (14.0-18.0); Mean Corpuscular Hgb Conc 31.8 g/dL (32-36); Mean Corpuscular Volume 76.6 fL (80-100); Mean Platelet Volume 9.3 fL (7.4-10.4); Platelet Count 251 K/uL (130-400); Red Blood Count 3.98 M/uL (4.7-6.1); White Blood Count 6.27 K/uL (4.8-10.8)
[2019-04-07 07:42] LABS: BUN Creatinine Ratio 18.6 (10-20); Calcium 9.1 mg/dl (8.5-10.1); Creatinine Clr Calc Pharmacy 43.2 ml/min; Est GFR (African American) 64.6; Est GFR (Non-African American) 55.8; Potassium 3.9 mmol/L (3.5-5.1)
[2019-04-07 07:46] LABS: Ferritin 11.7 ng/ml (8-388)
[2019-04-07] MEDS ORDERED: MULTIVITAMIN TAB PO SCH (09:00)
[2019-04-07] MEDS: INSULIN ASPART 100 UNITS/ML 3 ML PEN SC SCH ×4 (09:13→21:33)
[2019-04-07] MEDS: MULTIVITAMIN TAB PO SCH (09:14)
[2019-04-07] MEDS: NIACIN 500 MG TAB PO SCH ×2 (09:14→21:34)
[2019-04-07] MEDS: FERROUS SULFATE 325 MG TAB PO SCH (09:15)
[2019-04-07] MEDS: CIPROFLOXACIN 500 MG TAB PO SCH ×2 (09:15→21:35)
[2019-04-07] MEDS: DOCUSATE SODIUM 100 MG CAP PO SCH ×2 (09:15→21:34)
--- NOTE | 2019-04-07 12:01 | Orthopedic Progress Note ---
Date of Service April 07, 2019 Assessment & Plan (1) Acute osteomyelitis of right calcaneus: Right heel incision and drainage abscess, Debridement of calcaneal osteomyelitis. Implantation antibiotic Stimulan beads Will continue to monitor cultures for appropriate treatment with abx. PT/OT. NWB right LE DC home when cultures are back Subjective POD #1. Doing well, no complaints. Resting comfortably in chair. No CP, sob, N/V. dizziness Physical Exam Physical Exam: dressing intact. Toes mobile and NVI Results & Data Vital Signs (Past 12 Hours) Vital Signs Temp Pulse Resp BP BP Pulse Ox 04/07/19 07:34 36.6 C 68 18 164/85 H 100 04/07/19 03:10 36.6 C 68 16 162/76 H 190/68 H 99
--- NOTE | 2019-04-07 12:58 | Hospitalist Progress Note ---
Date of Service April 07, 2019 Assessment & Plan (1) Acute osteomyelitis of right calcaneus: - Previously followed with Dr. Julien, on Cipro PO as outpatient. Wound cultures were +Enterobacter. - S/p right heel I&D, debridement of ulcer, skin/fascia/achilles tendon/subQ tissue/calcaneal bone and implantation of antibiotic beads on 04/06. - Currently receiving Clindamycin IV for surgical prophylaxis for skin jennifer, but also growing many gram-positive cocci and some gram-positive bacilli in w ound culture; continue Cipro 500 mg BID for previous cultures with Enterobacter - Repeat intra-op wound culture is pending. - Pain control per primary team. - Restart home Eliquis this evening. - PT evaluation for discharge planning. (2) Afib: - Currently in NSR. - Resume home Eliquis this evening. - Continue home Amiodarone as prescribed. (3) CAD (coronary artery disease): - S/p CABG in 1994. - Most recent TTE in January 2019 showed preserved EF, no wall motion abnormalities. - Continue statin, niacin as prescribed. (4) HLD (hyperlipidemia): - Continue statin, niacin as prescribed. (5) Peripheral arterial disease: - S/p angiography with Dr. Barbour in January 2019; had mild to mod RLE distal SFA stenosis and minimal left SFA/popliteal disease. No intervention was performed and was deemed to have adequate flow to the heel. - Continue statin, Eliquis as prescribed (6) CKD (chronic kidney disease), stage III: - Renally dose all meds. Renal function is stable. (7) Hypothyroidism: - Continue Synthroid 50 mcg daily. - Most recent TSH was 1.5 in Oct 2018. (8) DM II (diabetes mellitus, type II), controlled: - A1C was 6.9 on 03/15/19. - Hold home Metformin. - Accuchecks ac/hs and SSI coverage. (9) Anemia: - Chronic microcytic anemia, first noted in Sep 2017. - Iron studies c/w iron deficiency anemia. - Most recent colonoscopy was ~4-5 years ago per patient -- will need to follow up for further evaluation as outpatient due to ongoing severe iron deficiency anemia. - On Ferrous sulfate daily; will also give IV Iron this afternoon. (10) DVT prophylaxis: - SCDs; resume home Eliquis this evening. Dispo: Will continue to follow, please call with any questions. Supervising Physician Co-Signing Physician Notes PA Supervision Note: I did not personally see or examine the patient today, but I verified all pried points of EMY Proctor's assessment and plan with the following exceptions/additions: None Subjective Pt is doing well overall. Denies pain in foot, just had a mild pressure. Had a BM last night. Denies urinary retention, chest pain, SOB. Review of Systems Review of Systems: All systems reviewed & are unremarkable except as noted in HPI & below Constitutional: no fever, no chills, no fatigue and no weakness Respiratory: no cough, no dyspnea and no dyspnea on exertion Cardiovascular: no chest pain, no palpitations and no edema Gastrointestinal: no abdominal pain, no nausea, no vomiting and no constipation Genitourinary: no difficulty urinating Musculoskeletal: + joint pain; no back pain Integumentary: no non-healing lesions Allergy / Immunological: no rash Physical Exam Physical Exam: General: In no acute distress HEENT: NC/AT; PERRLA with EOMI; [place] conjunctiva, MMM. No erythema of posterior pharynx Neck: Supple and nontender Cardiac: Regular rate and rhythm Lungs: CTA bilaterally; No rhonchi, wheezing, or rales Abdomen: Bowel normoactive X 4; Nontender to palpation Extremities: Warm. No edema present. Dressing in place on right foot. Neuro: No focal weakness Skin: No rash Results & Data Vital Signs (Past 12 Hours) Vital Signs Temp Pulse Resp BP BP Pulse Ox 04/07/19 07:34 36.6 C 68 18 164/85 H 100 04/07/19 03:10 36.6 C 68 16 162/76 H 190/68 H 99 Laboratory Results 04/07/19 04/07/19 04/07/19 Range/Units 12:03 07:58 06:59 WBC (4.8-10.8) K/uL RBC (4.7-6.1) M/uL Hgb (14.0-18.0) g/dL Hct (42-52) % MCV (80-100) fL MCH (25-34) pg MCHC (32-36) g/dL RDW Std Deviation (36.4-46.3) fL RDW Coeff of Cyndi (11.5-14.5) % Plt Count (130-400) K/uL MPV (7.4-10.4) fL Sodium 140 (136-145) mmol/L Potassium 3.9 (3.5-5.1) mmol/L Chloride 105 (98-107) mmol/L Carbon Dioxide 27 (21-32) mmol/L Anion Gap 8.0 (3-11) BUN 22 H (7-18) mg/dl Creatinine 1.19 (0.6-1.4) mg/dl Est Cr Clr Drug Dosing 43.2 ml/min Est GFR ( Amer) 64.6 Est GFR (Non-Af Amer) 55.8 BUN/Creatinine Ratio 18.6 (10-20) Glucose 90 (70-99) mg/dl POC Glucose 94 82 (70-99) Calcium 9.1 (8.5-10.1) mg/dl Iron 47 (35-175) mcg/dl TIBC 374 (250-450) mcg/dl Transferrin 279 (200-360) mg/dl Transferrin % Sat 12 L (20-50) % Ferritin 11.7 (8-388) ng/ml 04/07/19 04/06/19 04/06/19 Range/Units 06:59 20:33 17:27 WBC 6.27 (4.8-10.8) K/uL RBC 3.98 L (4.7-6.1) M/uL Hgb 9.7 L (14.0-18.0) g/dL Hct 30.5 L (42-52) % MCV 76.6 L (80-100) fL MCH 24.4 L (25-34) pg MCHC 31.8 L (32-36) g/dL RDW Std Deviation 48.0 H (36.4-46.3) fL RDW Coeff of Cyndi 17.0 H (11.5-14.5) % Plt Count 251 (130-400) K/uL MPV 9.3 (7.4-10.4) fL Sodium (136-145) mmol/L Potassium (3.5-5.1) mmol/L Chloride (98-107) mmol/L Carbon Dioxide (21-32) mmol/L Anion Gap (3-11) BUN (7-18) mg/dl Creatinine (0.6-1.4) mg/dl Est Cr Clr Drug Dosing ml/min Est GFR ( Amer) Est GFR (Non-Af Amer) BUN/Creatinine Ratio (10-20) Glucose (70-99) mg/dl POC Glucose 101 H 90 (70-99) Calcium (8.5-10.1) mg/dl Iron (35-175) mcg/dl TIBC (250-450) mcg/dl Transferrin (200-360) mg/dl Transferrin % Sat (20-50) % Ferritin (8-388) ng/ml PG Care Time/CCT Total # of Minutes Spent Total Time Spent with Patient: Total time spent is greater than 50% in coordination of care (as documented) at patient's floor/unit and/or counseling patient:
[2019-04-07] MEDS ORDERED: IRON DEXTRAN COMPLEX 25 MG in SYRINGE 0 ML IV ONE (13:30)
[2019-04-07] MEDS ORDERED: IRON DEXTRAN COMPLEX 75 MG in SYRINGE 0 ML IV ONE (15:30)
--- NOTE | 2019-04-07 17:06 | Anesthesiology Progress Note ---
Date of Service April 07, 2019 Anesthesia Post Procedure Vital Signs Vital Signs: Temp Pulse Resp BP BP Pulse Ox 04/07/19 15:04 36.5 C 61 18 150/78 H 100 04/07/19 14:49 36.5 C 63 16 160/73 H 100 04/07/19 14:34 36.6 C 60 18 120/73 98 04/07/19 14:15 36.8 C 70 18 144/87 H 99 04/07/19 13:53 36.4 C L 77 16 167/76 H 99 04/07/19 07:34 36.6 C 68 18 164/85 H 100 04/07/19 03:10 36.6 C 68 16 162/76 H 190/68 H 99 04/06/19 23:03 36.8 C 64 16 149/76 H 99 04/06/19 20:17 36.7 C 67 18 137/71 98 04/06/19 19:08 36.7 C 71 16 152/78 H 98 04/06/19 18:12 36.7 C 70 16 175/70 H 98 04/06/19 17:40 36.7 C 67 16 157/75 H 96 04/06/19 17:10 36.6 C 62 16 155/75 H 98 Transfer of Care Handoff Completed per policy Notes Mental Status: alert / awake / arousable and participated in evaluation Patient Amnestic to Procedure: Yes Nausea / Vomiting: adequately controlled Pain: adequately controlled Airway Patency, RR, SpO2: stable & adequate BP & HR: stable & adequate Hydration State: stable & adequate Anesthetic Complications: no major complications apparent and Pt Satisfied with anesthetic care
[2019-04-07] MEDS: AMLODIPINE BESYLATE 5 MG TAB PO SCH (17:10)
--- NOTE | 2019-04-07 17:38 | Infectious Disease Progress Nt ---
Date of Service April 07, 2019 Assessment & Plan (1) Acute osteomyelitis of right calcaneus: Patient with acute osteomyelitis of the right heel status post debridement. Patient to continue on current antibiotics pending operative cultures. Will adjust once available. Will follow. Subjective POD #1. Doing well, no complaints. Resting comfortably in chair. No CP, sob, N/V. dizziness Review of Systems Review of Systems: All systems reviewed & are unremarkable except as noted in HPI & below Physical Exam Constitutional: WD/WN, vitals as above comfortable; no acute distress Eyes: PERRL, conjunctivae normal, anicteric sclerae ENMT: external ear and nose normal, oropharynx normal Neck: trachea midline, no thyromegaly neck nontender Respiratory: normal respiratory effort, lungs clear to auscultation normal percussion; no respiratory distress Cardiovascular: Rate/Rhythm: regular rate and regular rhythm Heart Sounds: normal S1 and normal S2; no gallop, no murmur and no cardiac rub Gastrointestinal (Abdomen): normal bowel sounds, soft, nontender, no hepatosplenomegaly Musculoskeletal: no cyanosis or clubbing, extremities motor strength 5/5 No spinal tenderness, no joint swelling or erythema Skin: no rashes, warm and dry Surgical dressing intact right foot Neurologic: moves all extremities and awake; no focal motor deficits Motor/Sensory: no sensory deficit Psychiatric: A+Ox3, euthymic affect Lymphatic: no cervical or axillary lymphadenopathy no inguinal lymphadenopathy Results & Data Vital Signs (Past 12 Hours) Vital Signs Temp Pulse Resp BP BP Pulse Ox 04/07/19 17:09 61 146/72 H 04/07/19 15:04 36.5 C 61 18 150/78 H 100 04/07/19 14:49 36.5 C 63 16 160/73 H 100 04/07/19 14:34 36.6 C 60 18 120/73 98 04/07/19 14:15 36.8 C 70 18 144/87 H 99 04/07/19 13:53 36.4 C L 77 16 167/76 H 99 04/07/19 07:34 36.6 C 68 18 164/85 H 100 Laboratory Results Short CBC 04/07/19 Range/Units 06:59 WBC 6.27 (4.8-10.8) K/uL Hgb 9.7 L (14.0-18.0) g/dL Hct 30.5 L (42-52) % Plt Count 251 (130-400) K/uL BMP 04/07/19 06:59 Sodium 140 Potassium 3.9 Chloride 105 Carbon Dioxide 27 BUN 22 H Creatinine 1.19 Glucose 90 Calcium 9.1 Diagnostic Findings Microbiology 04/06/19 Unknown Foot,Right Gram Stain - Final 04/06/19 Unknown Foot,Right Aerobic and Anaerobic Culture - Preliminary Corynebacterium species 03/15/19 Unknown Urine,Clean Catch Urine Culture - Final No growth - less than 1,000 colonies/mL.
[2019-04-07] MEDS: SENNA 8.6 MG TAB PO SCH (21:32)
[2019-04-07] MEDS: APIXABAN 5 MG TABLET PO SCH (21:34)
[2019-04-07] MEDS: AMIODARONE 200 MG TAB PO SCH (21:34)
[2019-04-07] MEDS: ROSUVASTATIN CALCIUM 10 MG TAB PO SCH (21:34)
[2019-04-08 05:40] LABS: Hematocrit (blood only) 31.4 % (42-52); Hemoglobin 9.8 g/dL (14.0-18.0); Mean Corpuscular Hgb Conc 31.2 g/dL (32-36); Mean Corpuscular Volume 76.6 fL (80-100); Mean Platelet Volume 9.6 fL (7.4-10.4); Platelet Count 272 K/uL (130-400); RDW Standard Deviation 48.2 fL (36.4-46.3); White Blood Count 5.56 K/uL (4.8-10.8)
[2019-04-08] MEDS: CLINDAMYCIN 600 MG in DEXTROSE 5% 50 ML IV SCH ×3 (05:41→21:47)
[2019-04-08] MEDS: LEVOTHYROXINE SODIUM 50 MCG TABLET PO SCH (05:41)
[2019-04-08 05:53] LABS: Calcium 8.6 mg/dl (8.5-10.1); Creatinine Clr Calc Pharmacy 43.2 ml/min; Est GFR (African American) 64.6; Est GFR (Non-African American) 55.8; Potassium 4.1 mmol/L (3.5-5.1)
[2019-04-08] MEDS: INSULIN ASPART 100 UNITS/ML 3 ML PEN SC SCH ×4 (08:47→20:43)
[2019-04-08] MEDS: APIXABAN 5 MG TABLET PO SCH ×2 (08:50→20:36)
[2019-04-08] MEDS: FERROUS SULFATE 325 MG TAB PO SCH (08:50)
[2019-04-08] MEDS: DOCUSATE SODIUM 100 MG CAP PO SCH ×2 (08:50→20:36)
[2019-04-08] MEDS: NIACIN 500 MG TAB PO SCH ×2 (08:50→20:36)
[2019-04-08] MEDS: MULTIVITAMIN TAB PO SCH (08:50)
[2019-04-08] MEDS: AMLODIPINE BESYLATE 5 MG TAB PO SCH (08:51)
[2019-04-08] MEDS: CIPROFLOXACIN 500 MG TAB PO SCH ×2 (08:51→20:36)
[2019-04-08] MEDS: TRAMADOL HCL 50 MG TABLET PO PRN (08:57)
--- NOTE | 2019-04-08 10:13 | Orthopedic Progress Note ---
Date of Service April 08, 2019 Assessment & Plan (1) Acute osteomyelitis of right calcaneus: Right heel incision and drainage abscess, Debridement of calcaneal osteomyelitis. Implantation antibiotic Stimulan beads Will continue to monitor cultures for appropriate treatment with abx per ID. PT/OT. NWB right LE DC home when cultures are back Subjective POD #2. Doing well, no complaints. Resting comfortably in bed. No CP, sob, N/V. dizziness Physical Exam Physical Exam: dressing changed. wound closed, clean and dry. no erythema. toes mobile. NVI Results & Data Vital Signs (Past 12 Hours) Vital Signs Temp Pulse Resp BP Pulse Ox 04/08/19 07:27 36.7 C 73 18 124/75 95 04/07/19 23:05 36.5 C 69 16 164/79 H 99
--- NOTE | 2019-04-08 12:19 | Hospitalist Progress Note ---
Date of Service April 08, 2019 Assessment & Plan (1) Acute osteomyelitis of right calcaneus: - Previously followed with Dr. Julien, on Cipro PO as outpatient. Wound cultures were +Enterobacter. - S/p right heel I&D, debridement of ulcer, skin/fascia/achilles tendon/subQ tissue/calcaneal bone and implantation of antibiotic beads on 04/06, POD#2. - Clindamycin IV for surgical prophylaxis and gram stain results; continue Cipro 500 mg BID for previous cultures with Enterobacter. - Intra-op wound culture gram stain growing many gram positive cocci, some gram positive bacilli; Corynebacterium noted, final cultures pending. - Pain control per primary team. - DVT ppx with home Eliquis BID. - Will need home health services at discharge. (2) Afib: - Currently in NSR. - Resumed home Eliquis. - Continue home Amiodarone as prescribed. (3) HTN (hypertension): - Previously on Atenolol in the past, did not tolerate due to bradycardia. - BP has been elevated during this admission -- started Amlodipine 5 mg daily on 04/07. - BP now improved, will monitor. (4) CAD (coronary artery disease): - S/p CABG in 1994. - Most recent TTE in January 2019 showed preserved EF, no wall motion abnormalities. - Continue statin, niacin as prescribed. (5) HLD (hyperlipidemia): - Continue statin, niacin as prescribed. (6) Peripheral arterial disease: - S/p angiography with Dr. Barbour in January 2019; had mild to mod RLE distal SFA stenosis and minimal left SFA/popliteal disease. No intervention was performed and was deemed to have adequate flow to the heel. - Continue statin, Eliquis as prescribed (7) CKD (chronic kidney disease), stage III: - Renally dose all meds. Renal function is stable. (8) Hypothyroidism: - Continue Synthroid 50 mcg daily. - Most recent TSH was 1.5 in Oct 2018. (9) DM II (diabetes mellitus, type II), controlled: - A1C was 6.9 on 03/15/19. - Hold home Metformin. - Accuchecks ac/hs and SSI coverage. (10) Anemia: - Chronic microcytic anemia, first noted in Sep 2017. - Iron studies c/w iron deficiency anemia. - Most recent colonoscopy was ~4-5 years ago per patient -- will need to follow up with PCP for further evaluation as outpatient due to ongoing severe iron deficiency anemia. - On Ferrous sulfate daily; also received IV Iron on 04/07/19. (11) DVT prophylaxis: - SCDs; resumed home Eliquis. Dispo: Will continue to follow, please call with any questions. Supervising Physician Co-Signing Physician Notes PA Supervision Note: I personally saw and examined the patient. I verified all pride points and agree with EMY Proctor with the following exceptions and/or additions: BP dropped on the lower side later in the afternoon. Will decrease amlodipine to 2.5mg daily Subjective Pt. is stable -- no changes over last 24 hours. Denies pain in foot, chest pain, SOB, N/V. Plan for discharge to home with home health following final results of wound culture. Review of Systems Review of Systems: All systems reviewed & are unremarkable except as noted in HPI & below Constitutional: no fever, no chills, no fatigue, no weakness and no anorexia Respiratory: no cough, no dyspnea, no dyspnea on exertion and no wheezing Cardiovascular: no chest pain, no palpitations and no edema Gastrointestinal: no abdominal pain, no nausea, no vomiting and no constipation Genitourinary: no difficulty urinating Musculoskeletal: no back pain and no joint pain Integumentary: no non-healing lesions Allergy / Immunological: no rash Physical Exam Physical Exam: General: In no acute distress HEENT: NC/AT; PERRLA with EOMI; [place] conjunctiva, MMM. No erythema of posterior pharynx Neck: Supple and nontender Cardiac: Regular rate and rhythm Lungs: CTA bilaterally Abdomen: Bowel normoactive X 4; Nontender to palpation Extremities: Warm. No edema present. Dressing in place on right foot. Neuro: No focal weakness Skin: No rash Results & Data Vital Signs (Past 12 Hours) Vital Signs Temp Pulse Resp BP Pulse Ox 04/08/19 07:27 36.7 C 73 18 124/75 95 Laboratory Results 04/08/19 04/08/19 04/08/19 Range/Units 08:17 05:23 05:23 WBC 5.56 (4.8-10.8) K/uL RBC 4.10 L (4.7-6.1) M/uL Hgb 9.8 L (14.0-18.0) g/dL Hct 31.4 L (42-52) % MCV 76.6 L (80-100) fL MCH 23.9 L (25-34) pg MCHC 31.2 L (32-36) g/dL RDW Std Deviation 48.2 H (36.4-46.3) fL RDW Coeff of Cyndi 17.0 H (11.5-14.5) % Plt Count 272 (130-400) K/uL MPV 9.6 (7.4-10.4) fL Sodium 136 (136-145) mmol/L Potassium 4.1 (3.5-5.1) mmol/L Chloride 105 (98-107) mmol/L Carbon Dioxide 27 (21-32) mmol/L Anion Gap 4.0 (3-11) BUN 21 H (7-18) mg/dl Creatinine 1.19 (0.6-1.4) mg/dl Est Cr Clr Drug Dosing 43.2 ml/min Est GFR ( Amer) 64.6 Est GFR (Non-Af Amer) 55.8 BUN/Creatinine Ratio 18.0 (10-20) Glucose 101 H (70-99) mg/dl POC Glucose 111 H (70-99) Calcium 8.6 (8.5-10.1) mg/dl 04/07/19 04/07/19 Range/Units 21:04 17:17 WBC (4.8-10.8) K/uL RBC (4.7-6.1) M/uL Hgb (14.0-18.0) g/dL Hct (42-52) % MCV (80-100) fL MCH (25-34) pg MCHC (32-36) g/dL RDW Std Deviation (36.4-46.3) fL RDW Coeff of Cyndi (11.5-14.5) % Plt Count (130-400) K/uL MPV (7.4-10.4) fL Sodium (136-145) mmol/L Potassium (3.5-5.1) mmol/L Chloride (98-107) mmol/L Carbon Dioxide (21-32) mmol/L Anion Gap (3-11) BUN (7-18) mg/dl Creatinine (0.6-1.4) mg/dl Est Cr Clr Drug Dosing ml/min Est GFR ( Amer) Est GFR (Non-Af Amer) BUN/Creatinine Ratio (10-20) Glucose (70-99) mg/dl POC Glucose 88 114 H (70-99) Calcium (8.5-10.1) mg/dl PG Care Time/CCT Total # of Minutes Spent Total Time Spent with Patient: Total time spent is greater than 50% in coordination of care (as documented) at patient's floor/unit and/or counseling patient:
[2019-04-08] MEDS: IRON DEXTRAN COMPLEX 100 MG in SYRINGE 0 ML IV SCH (14:26)
[2019-04-08] MEDS: ROSUVASTATIN CALCIUM 10 MG TAB PO SCH (20:36)
[2019-04-08] MEDS: SENNA 8.6 MG TAB PO SCH (20:36)
[2019-04-08] MEDS: AMIODARONE 200 MG TAB PO SCH (20:36)
[2019-04-09] MEDS: CLINDAMYCIN 600 MG in DEXTROSE 5% 50 ML IV SCH ×2 (06:08→13:58)
[2019-04-09] MEDS: LEVOTHYROXINE SODIUM 50 MCG TABLET PO SCH (06:09)
--- NOTE | 2019-04-09 07:49 | Anesthesiology Progress Note ---
Date of Service April 09, 2019 Anesthesia Post Procedure Vital Signs Vital Signs: Temp Pulse Resp BP BP Pulse Ox 04/09/19 07:07 36.9 C 71 18 127/77 97 04/08/19 22:00 36.7 C 70 16 131/72 97 04/08/19 15:35 36.3 C L 61 16 98/63 L 98 Pain Intensity Right Foot: Pain Intensity: 3 Notes Mental Status: alert / awake / arousable and participated in evaluation Patient Amnestic to Procedure: Yes Nausea / Vomiting: adequately controlled Pain: adequately controlled Airway Patency, RR, SpO2: stable & adequate BP & HR: stable & adequate Hydration State: stable & adequate Anesthetic Complications: no major complications apparent and Pt Satisfied with anesthetic care
[2019-04-09] MEDS: TRAMADOL HCL 50 MG TABLET PO PRN ×3 (07:52→21:24)
[2019-04-09] MEDS: INSULIN ASPART 100 UNITS/ML 3 ML PEN SC SCH ×4 (08:18→21:34)
[2019-04-09] MEDS: DOCUSATE SODIUM 100 MG CAP PO SCH ×3 (08:20→21:28)
[2019-04-09] MEDS: MULTIVITAMIN TAB PO SCH (08:20)
[2019-04-09] MEDS: FERROUS SULFATE 325 MG TAB PO SCH (08:21)
[2019-04-09] MEDS: APIXABAN 5 MG TABLET PO SCH ×2 (08:21→21:29)
[2019-04-09] MEDS: CIPROFLOXACIN 500 MG TAB PO SCH ×2 (08:21→21:27)
[2019-04-09] MEDS: NIACIN 500 MG TAB PO SCH ×2 (08:22→21:29)
[2019-04-09] MEDS: AMLODIPINE BESYLATE 5 MG TAB PO SCH (08:24)
[2019-04-09] MEDS: IRON DEXTRAN COMPLEX 100 MG in SYRINGE 0 ML IV SCH (09:02)
[2019-04-09] MEDS ORDERED: DAPTOmycin 500 MG VIAL IV SCH (15:00)
--- NOTE | 2019-04-09 15:04 | Infectious Disease Progress Nt ---
Date of Service April 09, 2019 Assessment & Plan (1) Acute osteomyelitis of right calcaneus: Patient with acute osteomyelitis of the right heel status post debridement with cultures growing staph and corynebacterium. Will change clindamycin to daptomycin and continue oral ciprofloxacin. Await final identification and sensitivities of staphylococcal isolate. Will follow. Subjective Patient seen in follow-up for right heel osteomyelitis status post debridement. Patient is comfortable, pain controlled. Remains afebrile. Cultures growing staph and corynebacterium. Review of Systems 2 Review of Systems: All systems reviewed & are unremarkable except as noted in HPI & below Physical Exam Constitutional: WD/WN, vitals as above comfortable; no acute distress Eyes: PERRL, conjunctivae normal, anicteric sclerae ENMT: external ear and nose normal, oropharynx normal Neck: trachea midline, no thyromegaly neck nontender Respiratory: normal respiratory effort, lungs clear to auscultation normal percussion; no respiratory distress and does not use accessory muscles Cardiovascular: Rate/Rhythm: regular rate and regular rhythm Heart Sounds: normal S1 and normal S2; no gallop, no murmur and no cardiac rub Vessels: normal peripheral pulses; no JVD Gastrointestinal (Abdomen): normal bowel sounds, soft, nontender, no hepatosplenomegaly Musculoskeletal: no cyanosis or clubbing, extremities motor strength 5/5 Spine: thoracic spine normal to inspection and lumbar spine normal to inspection; no cervical spinal tenderness Skin: no rashes, warm and dry normal turgor Neurologic: patellar DTR's 2+ bilat, sensation intact moves all extremities and awake; no focal motor deficits Motor/Sensory: no sensory deficit Psychiatric: A+Ox3, euthymic affect Orientation: cooperative Lymphatic: no cervical or axillary lymphadenopathy no inguinal lymphadenopathy Results & Data Vital Signs (Past 12 Hours) Vital Signs Temp Pulse Resp BP BP Pulse Ox 04/09/19 08:23 110/62 04/09/19 07:07 36.9 C 71 18 127/77 97 Laboratory Results Laboratory Results - last 48 hr 04/07/19 04/07/19 04/08/19 17:17 21:04 05:23 WBC 5.56 RBC 4.10 L Hgb 9.8 L Hct 31.4 L MCV 76.6 L MCH 23.9 L MCHC 31.2 L RDW Std Deviation 48.2 H RDW Coeff of Cyndi 17.0 H Plt Count 272 MPV 9.6 Sodium Potassium Chloride Carbon Dioxide Anion Gap BUN Creatinine Est Cr Clr Drug Dosing Est GFR ( Amer) Est GFR (Non-Af Amer) BUN/Creatinine Ratio Glucose POC Glucose 114 H 88 Calcium 04/08/19 04/08/19 04/08/19 05:23 08:17 12:15 WBC RBC Hgb Hct MCV MCH MCHC RDW Std Deviation RDW Coeff of Cyndi Plt Count MPV Sodium 136 Potassium 4.1 Chloride 105 Carbon Dioxide 27 Anion Gap 4.0 BUN 21 H Creatinine 1.19 Est Cr Clr Drug Dosing 43.2 Est GFR ( Amer) 64.6 Est GFR (Non-Af Amer) 55.8 BUN/Creatinine Ratio 18.0 Glucose 101 H POC Glucose 111 H 118 H Calcium 8.6 04/08/19 04/08/19 04/09/19 17:05 20:35 08:01 WBC RBC Hgb Hct MCV MCH MCHC RDW Std Deviation RDW Coeff of Cyndi Plt Count MPV Sodium Potassium Chloride Carbon Dioxide Anion Gap BUN Creatinine Est Cr Clr Drug Dosing Est GFR ( Amer) Est GFR (Non-Af Amer) BUN/Creatinine Ratio Glucose POC Glucose 132 H 109 H 116 H Calcium 04/09/19 12:06 WBC RBC Hgb Hct MCV MCH MCHC RDW Std Deviation RDW Coeff of Cyndi Plt Count MPV Sodium Potassium Chloride Carbon Dioxide Anion Gap BUN Creatinine Est Cr Clr Drug Dosing Est GFR ( Amer) Est GFR (Non-Af Amer) BUN/Creatinine Ratio Glucose POC Glucose 112 H Calcium Diagnostic Findings Microbiology 04/06/19 Unknown Foot,Right Gram Stain - Final 04/06/19 Unknown Foot,Right Aerobic and Anaerobic Culture - Preliminary Corynebacterium species Staphylococcus species 03/15/19 Unknown Urine,Clean Catch Urine Culture - Final No growth - less than 1,000 colonies/mL.
--- NOTE | 2019-04-09 15:29 | Orthopedic Progress Note ---
Date of Service April 09, 2019 Assessment & Plan (1) Acute osteomyelitis of right calcaneus: Right heel incision and drainage abscess, Debridement of calcaneal osteomyelitis. Implantation antibiotic Stimulan beads Will continue to monitor cultures for appropriate treatment with abx per ID. PT/OT. NWB right LE DC home when cultures are back Subjective POD #2. Doing well, no complaints. Resting comfortably in bed. No CP, sob, N/V. dizziness Results & Data Vital Signs (Past 12 Hours) Vital Signs Temp Pulse Resp BP BP Pulse Ox 04/09/19 08:23 110/62 04/09/19 07:07 36.9 C 71 18 127/77 97
[2019-04-09] MEDS: DAPTOmycin 400 MG in SYRINGE 0 ML IV SCH (16:24)
[2019-04-09] MEDS: AMIODARONE 200 MG TAB PO SCH (21:25)
[2019-04-09] MEDS: SENNA 8.6 MG TAB PO SCH (21:30)
[2019-04-10] MEDS: LEVOTHYROXINE SODIUM 50 MCG TABLET PO SCH (05:40)
--- NOTE | 2019-04-10 07:32 | Orthopedic Progress Note ---
Date of Service April 10, 2019 Assessment & Plan (1) Acute osteomyelitis of right calcaneus: POD #4 s/p Right heel incision and drainage abscess, Debridement of calcaneal osteomyelitis. Implantation antibiotic Stimulan beads IV Antibiotic changed to Dapto yesterday. Continue PO Cipro. Awaiting final sensitivities of the staph species before d/c. PT/OT. NWB right LE DC home when cultures are back Subjective POD #2. Doing well, no complaints. Resting comfortably in bed. No CP, sob, N/V. dizziness States he's hoping to go home soon so he's hoping the cultures can be finalized today. Otherwise, no complaints. Physical Exam Constitutional: well developed and well nourished; no acute distress ENMT: external ear and nose normal, oropharynx normal Neck: trachea midline, no thyromegaly Respiratory: normal respiratory effort, lungs clear to auscultation Cardiovascular: Rate/Rhythm: + irregularly irregular Gastrointestinal (Abdomen): normal bowel sounds, soft, nontender, no hepatosplenomegaly Musculoskeletal: Right foot: The dressing has been changed already this morning. It is clean and dry. No drainage on the dressing. NV intact RLE. Neurologic: Motor/Sensory: + sensory deficit (bilateral LE) Results & Data Vital Signs (Past 12 Hours) Vital Signs Temp Pulse Pulse Resp BP Pulse Ox 04/09/19 23:00 36.7 C 73 16 152/78 H 97 04/09/19 21:20 72 174/72 H Laboratory Results Procedure Result Verified Site Gram Stain Final 04/07/19-0806 Gram Stain Result No WBCs Seen Many Gram Positive Cocci Few Gram Positive Bacilli Aero/Krysten Cult Preliminary 04/09/19-1233 Organism 1 Corynebacterium species Quantity Moderate Sens No Sensitivities to Follow Organism 2 Staphylococcus species Quantity Rare Sens Sensitivities to Follow
[2019-04-10] MEDS: CIPROFLOXACIN 500 MG TAB PO SCH ×2 (08:42→22:22)
[2019-04-10] MEDS: DOCUSATE SODIUM 100 MG CAP PO SCH ×2 (08:43→22:21)
[2019-04-10] MEDS: MULTIVITAMIN TAB PO SCH (08:43)
[2019-04-10] MEDS: APIXABAN 5 MG TABLET PO SCH ×2 (08:43→22:22)
[2019-04-10] MEDS: FERROUS SULFATE 325 MG TAB PO SCH (08:43)
[2019-04-10] MEDS: NIACIN 500 MG TAB PO SCH ×2 (08:43→22:22)
[2019-04-10] MEDS: AMLODIPINE BESYLATE 5 MG TAB PO SCH (08:44)
[2019-04-10] MEDS: INSULIN ASPART 100 UNITS/ML 3 ML PEN SC SCH ×4 (08:46→22:27)
[2019-04-10] MEDS: IRON DEXTRAN COMPLEX 100 MG in SYRINGE 0 ML IV SCH (09:41)
--- NOTE | 2019-04-10 10:12 | Infectious Disease Progress Nt ---
Date of Service April 10, 2019 Assessment & Plan (1) Acute osteomyelitis of right calcaneus: Patient with acute osteomyelitis of the right heel status post debridement with cultures growing staph and corynebacterium. Patient to be continued on daptomycin and oral ciprofloxacin for 6 weeks total. (2) Staphylococcal infection: Subjective . POD #2. Doing well, no complaints. Resting comfortably in bed. No CP, sob, N/V. dizziness States he's hoping to go home soon so he's hoping the cultures can be finalized today. Still no identification or sensitivities of staph species. Otherwise, no complaints. Physical Exam Constitutional: WD/WN, vitals as above comfortable; no acute distress Eyes: PERRL, conjunctivae normal, anicteric sclerae ENMT: external ear and nose normal, oropharynx normal Neck: trachea midline, no thyromegaly neck nontender Respiratory: normal respiratory effort, lungs clear to auscultation normal percussion; no respiratory distress and does not use accessory muscles Cardiovascular: Rate/Rhythm: regular rate and regular rhythm Heart Sounds: normal S1 and normal S2; no gallop, no murmur and no cardiac rub Vessels: normal peripheral pulses; no JVD Gastrointestinal (Abdomen): normal bowel sounds, soft, nontender, no hepatosplenomegaly Musculoskeletal: no cyanosis or clubbing, extremities motor strength 5/5 Spine: thoracic spine normal to inspection and lumbar spine normal to inspection; no cervical spinal tenderness Skin: no rashes, warm and dry normal turgor Neurologic: patellar DTR's 2+ bilat, sensation intact moves all extremities and awake; no focal motor deficits Motor/Sensory: no sensory deficit Psychiatric: A+Ox3, euthymic affect Orientation: cooperative Lymphatic: no cervical or axillary lymphadenopathy no inguinal lymphadenopathy Results & Data Vital Signs (Past 12 Hours) Vital Signs Temp Pulse Resp BP BP Pulse Ox 04/10/19 08:18 36.5 C 73 18 127/76 97 04/09/19 23:00 36.7 C 73 16 152/78 H 97 Laboratory Results Laboratory Results - last 48 hr 04/08/19 04/08/19 04/08/19 12:15 17:05 20:35 POC Glucose 118 H 132 H 109 H 04/09/19 04/09/19 04/09/19 08:01 12:06 17:13 POC Glucose 116 H 112 H 100 H 04/09/19 04/10/19 20:59 08:08 POC Glucose 133 H 94 Diagnostic Findings Microbiology 04/06/19 Unknown Foot,Right Gram Stain - Final 04/06/19 Unknown Foot,Right Aerobic and Anaerobic Culture - Preliminary Corynebacterium species Staphylococcus species 03/15/19 Unknown Urine,Clean Catch Urine Culture - Final No growth - less than 1,000 colonies/mL.
[2019-04-10] MEDS: TRAMADOL HCL 50 MG TABLET PO PRN (15:15)
[2019-04-10] MEDS: DAPTOmycin 400 MG in SYRINGE 0 ML IV SCH (16:54)
[2019-04-10] MEDS: metroNIDAZOLE 500 MG TAB PO SCH ×2 (17:08→22:21)
[2019-04-10] MEDS: AMIODARONE 200 MG TAB PO SCH (22:22)
[2019-04-10] MEDS: SENNA 8.6 MG TAB PO SCH (22:22)
[2019-04-11] MEDS: TRAMADOL HCL 50 MG TABLET PO PRN ×2 (02:37→15:58)
[2019-04-11] MEDS: LEVOTHYROXINE SODIUM 50 MCG TABLET PO SCH (05:50)
[2019-04-11] MEDS: FERROUS SULFATE 325 MG TAB PO SCH (09:05)
[2019-04-11] MEDS: CIPROFLOXACIN 500 MG TAB PO SCH (09:05)
[2019-04-11] MEDS: MULTIVITAMIN TAB PO SCH (09:05)
[2019-04-11] MEDS: APIXABAN 5 MG TABLET PO SCH (09:05)
[2019-04-11] MEDS: DOCUSATE SODIUM 100 MG CAP PO SCH (09:06)
[2019-04-11] MEDS: metroNIDAZOLE 500 MG TAB PO SCH ×2 (09:06→13:12)
[2019-04-11] MEDS: NIACIN 500 MG TAB PO SCH (09:06)
[2019-04-11] MEDS: AMLODIPINE BESYLATE 5 MG TAB PO SCH (09:06)
[2019-04-11] MEDS: INSULIN ASPART 100 UNITS/ML 3 ML PEN SC SCH ×2 (09:09→13:11)
--- NOTE | 2019-04-11 16:42 | Orthopedic Progress Note ---
Date of Service April 11, 2019 Assessment & Plan (1) Acute osteomyelitis of right calcaneus: POD #5 s/p Right heel incision and drainage abscess, Debridement of calcaneal osteomyelitis. Implantation antibiotic Stimulan beads Picc line inserted IV Antibiotic changed to Dapto yesterday. Continue PO Cipro. Discussed case with Dr Julien. Anaerococcus covered by Daptomycin. Home health set up for patients IV antibx and lab draws PT/OT. NWB right LE DC home today. Subjective Postop day 5 status post I&D right heel. Another organism that showed up on the patient's microbiology late yesterday and discharge was held to discuss with infectious disease team. Currently the patient is awake and alert and has no complaints. Pain is controlled. He denies shortness of breath, chest pain, LH. Dressings changed earlier today. Physical Exam Physical Exam: Dressing C/D/I. Calves soft, NT. NV intact. Results & Data Vital Signs (Past 12 Hours) Vital Signs Temp Pulse Resp BP Pulse Ox 04/11/19 15:29 36.5 C 90 16 138/66 100 04/11/19 07:08 36.4 C L 81 20 110/62 98 Laboratory Results Microbiology 04/06/19 Unknown Foot,Right Gram Stain - Final 04/06/19 Unknown Foot,Right Aerobic and Anaerobic Culture - Final Corynebacterium species Anaerococcus prevotii
[2019-04-11] MEDS: DAPTOmycin 400 MG in SYRINGE 0 ML IV SCH (17:03)
--- NOTE | 2019-04-13 12:02 | Discharge Summary ---
Date of Service April 13, 2019 Admission HPI Per Admitting Provider This is a patient with a long hx of a right heel ulceration. He was treated conservatively with wound care but he wasn't making progress. An MRI was ordered that noted mild bone marrow edema in the posterior aspect of the heel. He is now being set up for surgical debridement of the ulcer and osteomyelitis. Principal Diagnosis right heel osteomyelitis Discharge Exam Constitutional well developed and well nourished; no acute distress ENMT external ear and nose normal, oropharynx normal Neck trachea midline, no thyromegaly Respiratory normal respiratory effort, lungs clear to auscultation Gastrointestinal (Abdomen) normal bowel sounds, soft, nontender, no hepatosplenomegaly Neurologic Motor/Sensory: + sensory deficit (bilateral LE) Discharge Data Allergies Allergy/AdvReac Type Severity Reaction Status Date / Time Penicillins Allergy Unknown GENERALIZED Verified 04/06/19 09:55 AND FACIAL SWELLING shellfish derived Allergy Unknown GENERALIZED Verified 04/06/19 09:55 AND FACIAL SWELLING Sulfa (Sulfonamide Allergy Unknown GENERALIZED Verified 04/06/19 09:55 Antibiotics) AND FACIAL SWELLING Consultations 04/06/19 15:42 Consult Case Management - Discharge Planning Routine 04/06/19 15:46 Consult Hospitalist Routine Consult Infectious Diseases Routine Procedures Performed Operation Date: 04/06/19 11:20 Actual Procedures p Right Heel Incision and Drainage,(Right) - Domo Rose DO s Right Heel Debridement of Ulcer, Debridement of Skin/Fascia/Bone, Implantation of Stimulan Antibiotic Beads(Right) - Domo Rose DO Ordered Studies 03/23/19 05:00 US - OR guided needle placemen Routine 04/06/19 05:00 US - OR guided needle placemen Routine Hospital Course (1) Acute osteomyelitis of right calcaneus: The patient underwent the noted procedure on 04.06.19. His pain was controlled throughout his stay. He maintained NWB on the RLE. Once the cultures and sensitivities from intra op were finalized, the patient was discharged home with home health for daily IV and PO antibiotic treatment. POD #5 s/p Right heel incision and drainage abscess, Debridement of calcaneal osteomyelitis. Implantation antibiotic Stimulan beads Picc line inserted IV Antibiotic changed to Dapto yesterday. Continue PO Cipro. Discussed case with Dr Julien. Anaerococcus covered by Daptomycin. Home health set up for patients IV antibx and lab draws PT/OT. NWB right LE DC home today. Total Time Total Time Spent Total Time Spent (In Minutes): 60 Discharge Plan Discharge Items Patient Disposition: Home - Home Health Services Reason For Visit: Right Heel Osteomyelitis Discharge Diagnosis: Right Heel Osteomyelitis Discharge Goals: Decrease discomfort and Improve function Activity: Per 'Additional Instructions' section Non-emergency contact: Surgeon Call non-emergency contact if: your pain is not controlled, your temperature is above 101.5, your wound has increased redness and your wound has increased drainage Follow-up/Referrals: PCP,NO [Primary Care Provider] - Diet: Carb Consistent or DM2 Addtl Provider Instructions: 1. Iron Deficiency Anemia * Please continue ferrous sulfate supplementation at home. * You will need to follow up with your primary care provider to discuss a colonoscopy/EGD to rule out active bleeding in setting of severe iron deficiency anemia. * please follow up with your primary care physician for blood pressure check in 7-10 days. Home Health Services to do qod dressing changes. Pt to do the other days. ACTIVITY RECOMMENDATIONS: Limitations: No weight bearing to affected limb at all times. SPECIAL CARE INSTRUCTIONS: * Some drainage onto the dressing is normal and is no cause for alarm. * Some swelling is natural especially after walking. * When resting, keep your foot elevated above the level of your heart. * Call [facility] if you notice: -Increased drainage -Fever over 101 degrees F -Severe constant pain BANDAGE: * Daily dressing changes. . * Keep bandage/cast dry at all times. ANTIBIOTICS * You will be receiving IV and oral antibiotics for 6 weeks. Home health services will be watching over this process during this time. You will need weekly blood draws. Results will be sent to Dr Julien/Genny. Dr. Julien will change the antibiotics if needed. FOLLOW UP VISIT WITH DR. ROSE If appointment is not already scheduled: Please call [facility] after you get home today to schedule a follow-up appointment for 1 week with Sylvester Bhatia PA-C at . Follow up with Dr Julien in 2 weeks. Call for appointment. [phone] Follow up with your Primary Care Physician in 7-10 days for blood pressure check and to change meds if needed. Prescriptions: New daptomycin 350 mg recon soln 400 mg IV DAILY 42 Days Qty: 1 RF: 0 ciprofloxacin HCl 500 mg Tablet 500 mg PO BID Qty: 84 RF: 0 amlodipine [Norvasc] 5 mg Tablet 2.5 mg PO QAM 30 Days Qty: 15 RF: 0 sennosides [Senokot] 8.6 mg Tablet 17.2 mg PO HS Qty: 30 RF: 0 oxycodone-acetaminophen [Percocet] 5-325 mg tablet 1 - 2 tab PO Q6H PRN (Reason: pain) Qty: 30 RF: 0 Continued amiodarone [Pacerone] 200 mg tablet 200 mg PO QPM RF: 0 apixaban [Eliquis] 5 mg tablet 5 mg PO BID RF: 0 metformin 1,000 mg tablet 1,000 mg PO BID RF: 0 multivitamin tablet 1 tab PO QAM RF: 0 niacin 500 mg tablet 500 mg PO BID RF: 0 rosuvastatin [Crestor] 20 mg tablet 10 mg PO QPM RF: 0 Discontinued ciprofloxacin HCl 500 mg tablet 500 mg PO BID Qty: 60 RF: 1 No Action levothyroxine 50 mcg capsule 50 mcg PO DAILY Qty: 90 RF: 1 mupirocin 2 % ointment 1 appln TOP BID Qty: 22 RF: 3 mecobalamin (vitamin B12) 1,000 mcg tablet,disintegrating 1,000 mcg SL DAILY Qty: 30 RF: 0 cholecalciferol (vitamin D3) 2,000 unit capsule 2,000 units PO DAILY Qty: 30 RF: 0 Slow Fe 142 mg (45 mg iron) tablet extended release 142 mg PO DAILY Qty: 90 RF: 1 Stand-Alone Forms: [facility] Discharge Orders: Discharge Order (Routine); Ordered 04/11/19 Ordered By: Agusto Short Admission Data Admit Date/Time: 04/06/19 15:42 Attending Provider: Domo Rose Admit Provider: Domo Rose Primary Care Provider: PCP,NO Other Providers: Mark Grajeda ; Nicole Mena ; Cheko Castillo ; Carlton Mosquera ; Isabell Montano ; Gonzalez Wu ; Mason Valdes ; Kyle Roth ; Marcy Bustamante ; Bina Williamson ; Suzan Nazario ; Ponce Rendon ; Sharla Vasquez ; Liban Graves ; Ulises Chavez ; Ron Lane ; Flora Catalan ; Ирина Diaz ; Lisa Ruano ; Josh Rodriguez ; Camilo Molina ; Sabi Fisher ; Star Colbert ; Michael Julien ; Tarsha Guzman Service: Surgical Services Other Interventions: Discharge Summary Assessment (RN) Last Done: 04/11/19 16:59 DC Date/Time DO NOT enter until pt leaves facility: 04/11/19 16:15
== END 2019-04-11 16:15 | disposition home health service (06) | DRG 623 ==
LOC: ASU 08:50 → 3E 15:42

== ENCOUNTER 2019-07-20 09:46 | Inpatient (IN) ==
--- NOTE | 2019-07-16 21:28 | PAT Medication Instructions ---
Medication Instructions Date of Service July 16, 2019 Home Medications Medication Instructions Recorded mecobalamin (vitamin B12) 1,000 1,000 mcg SL DAILY #30 tab 04/12/19 mcg disintegrating tablet,sublingual levothyroxine 50 mcg tablet 50 mcg PO QAM #90 tab 07/16/19 amiodarone 200 mg tablet 200 mg PO QPM apixaban 5 mg tablet 5 mg PO BID metformin 1,000 mg tablet 1,000 mg PO BID multivitamin tablet 1 tab PO QAM niacin 500 mg tablet 500 mg PO BID rosuvastatin 20 mg tablet 10 mg PO QPM mecobalamin (vitamin B12) 1,000 mcg disintegrating tablet,sublingual 1,000 mcg SL DAILY cholecalciferol (vitamin D3) 2,000 units PO QAM levofloxacin [Levaquin] 500 mg PO HS levothyroxine 50 mcg tablet 50 mcg PO QAM Continue as directed levofloxacin [Levaquin] 500 mg PO HS ASK your prescriber and surgeon apixaban 5 mg tablet 5 mg PO BID STOP taking 24 hours before surgery niacin 500 mg tablet 500 mg PO BID DO NOT take the morning of surgery metformin 1,000 mg tablet 1,000 mg PO BID multivitamin tablet 1 tab PO QAM mecobalamin (vitamin B12) 1,000 mcg disintegrating tablet,sublingual 1,000 mcg SL DAILY cholecalciferol (vitamin D3) 2,000 units PO QAM Take morning of surgery With a small sip of water, OTHERWISE NOTHING TO EAT OR DRINK AFTER MIDNIGHT: levothyroxine 50 mcg tablet 50 mcg PO QAM Take evening before surgery amiodarone 200 mg tablet 200 mg PO QPM metformin 1,000 mg tablet 1,000 mg PO BID rosuvastatin 20 mg tablet 10 mg PO QPM Other Notes If you have any questions please call us at [phone] or [phone] or [phone] or [phone]
--- NOTE | 2019-07-17 13:40 | Anesthesiology Consultation ---
Date of Service July 16, 2019 Assessment & Plan (1) Encounter for pre-operative examination: - Check BSG AM DOS - SAB patient request: Patient reports after remote hip surgeries done under general he felt "out of it for months." He states more recently he had right heel surgery 03/2019 at [facility] done under spinal anesthesia without similar issue and is requesting SAB for upcoming procedure. Right heel I&D, antibiotic beads: 04/06/19: SAB x 1 at L3/L4 at [facility]. Patient states last dose of Apixaban was 07/17 at 0800 (prior to being seen at PAT visit same day). Patient states okay per cardiology to hold 72 hours prior to surgery. Patient advised to not take any further Apixaban prior to surgery and will schedule case for after 0800 to allow for 72 hours/spinal anesthesia. OR made aware. - Hx glidescope intubation: Right ELLEN: 03/24/17: Elective Glidescope #4 due to limited ROM, ETT #7.5, HiLo Straight, Grade 2 View with Large Epiglottis - Cardiology: 05/07/19: Stable. Conitnued on same regimen. F/U 6 months recommended. Chart Review Chart Review: Pending: Refer to Additional Notes / Consult section (pending preop testing (labs)) and Patient seen in Pre Admission Testing Teaching & Discussion Pre-Anesthesia Teaching/Discussion Notes: Instructed NPO after midnight before surgery,except medications with 15 cc of water. Medication instructions provided according to the PAT guidelines. History Surgery Operation Date: 07/20/19 10:45 Proposed Procedures p Right Heel Incision and Drainage, Removal Stimulan Beads, Implantation of 5 ml Stimulan Antibiotic Beads - Domo Royal DO Height/Weight Height: 5 ft 7 in Weight: 69.1 kg Allergies Allergy/AdvReac Type Severity Reaction Status Date / Time Penicillins Allergy Unknown GENERALIZED Verified 07/17/19 08:12 AND FACIAL SWELLING shellfish derived Allergy Unknown GENERALIZED Verified 07/16/19 14:41 AND FACIAL SWELLING Sulfa (Sulfonamide Allergy Unknown GENERALIZED Verified 07/16/19 14:41 Antibiotics) AND FACIAL SWELLING Medications Home Medications Medication Instructions Recorded Confirmed Last Taken amiodarone 200 mg tablet 200 mg PO QPM 06/13/18 07/16/19 03/08/19 apixaban 5 mg tablet 5 mg PO BID 08/07/16/19 04/03/19 08:00 metformin 1,000 mg tablet 1,000 mg PO BID 06/13/18 07/16/19 04/05/19 20:00 multivitamin tablet 1 tab PO QAM 06/13/18 07/16/19 1 Week Ago ~03/30/19 niacin 500 mg tablet 500 mg PO BID tab 06/13/18 07/16/19 04/04/19 08:00 rosuvastatin 20 mg tablet 10 mg PO QPM tab 06/13/18 07/16/19 04/05/19 20:00 mecobalamin (vitamin B12) 1,000 1,000 mcg SL DAILY #30 tab 04/12/19 07/16/19 Unknown mcg disintegrating tablet,sublingual Microlet lancets #50 ea 04/20/19 07/13/19 Unknown blood sugar diagnostic strips #10 ea 07/01/19 07/13/19 Unknown cholecalciferol (vitamin D3) 2,000 units PO QAM 07/16/19 07/17/19 Unknown levofloxacin [Levaquin] 500 mg PO HS 07/16/19 07/17/19 Unknown levothyroxine 50 mcg tablet 50 mcg PO QAM #90 tab 07/16/19 07/17/19 Unknown Past Medical History Medical History Difficult airway for intubation Right ELLEN: 03/24/17 - Elective Glidescope #4 due to limited ROM, ETT #7.5, HiLo Straight, Grade 2 View with Large Epiglottis (no specific indication why SAB not used) Hypothyroidism CKD (chronic kidney disease), stage III Osteomyelitis right heel A-fib vs. 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, reason for upcoming procedure PAD (peripheral artery disease) s/p right SFA angioplasty Exercise / Class Metabolic Activity III < 4 Walking/Shop/Light housework (knee scooter (to relieve pressure from heel)) Past Family History Family History Mother Alzheimer disease Father Arthritis Past Surgical History Surgical History S/P closed reduction of dislocated total hip prosthesis History of cardioversion x3 - most recent at [facility] 2018 History of incision and drainage Right heel I&D, antibiotic beads: 04/06/19: SAB x 1 at L3/L4 at [facility] History of appendectomy History of cardiac cath 1994 -- subsequent CABG x3 History of colonoscopy History of fracture COLLAR BONE/SURGERY FOR History of hernia surgery RIGHT INGUINAL History of hip surgery X2 FOR DISLOCATION RIGHT (POST RIGHT ELLEN) History of neck surgery C4-5 "CADAVER BONE" History of repair of left rotator cuff History of tonsillectomy History of total right hip arthroplasty History of vascular surgery right heel vascular procedure (Dr. Barbour) Hx of CABG CABG x 3 (1994) Past Anesthesia History Difficult Airway (Right ELLEN: 03/24/17: Elective Glidescope #4 due to limited ROM, ETT #7.5, HiLo Straight, Grade 2 View with Large Epiglottis), No Family Hx of Anesthesia Complications and Other Patient reports after remote hip surgeries done under general he felt "out of it for months." He states more recently he had right heel surgery 03/2019 at [facility] done under spinal anesthesia without similar issue and is requesting SAB for upcoming procedure. History of PONV No Hx of PONV and No Hx of Motion Sickness Social History Smoking Status: Never smoker Do You Dip or Chew Tobacco: No Hx Alcohol Use: No Hx Substance Use: No substance use type: does not use Review of Systems Patient denies chest pain, shortness of breath, cough, wheezing, palpitations. Physical Exam Vital Signs VITALS BP 151/74 P 65 TEMP 97.9 SP02 99%RA RESP 18 PHYSICAL Decreased cervical extension s/p surgery Full TMJ range of motion. TMD 3 finger breaths Mallampati Score 2 Dentition: intact Lungs: clear throughout to auscultation Cardiac: regular rate and rhythm, I/ systolic murmur Spine: normal Carotid arteries: negative bruit Extremities: no edema Testing Electrocardiogram Date: 12/25/18 SR with occasional SPVC's at 64bpm. No significant change compared to 2016 per cardiology. Chest X-Ray Date: 02/19/19 Findings: + NAD Echocardiogram Date: 02/19/19 EF >70%. No RWMA. Moderate cLVH. Mild RAD. Mild RVD. MIld to moderate mitral annular calcification. Normal RVSP.
[2019-07-17 15:30] LABS: Basophils # (auto) 0.03 K/uL (0-0.2); Basophils % (auto) 0.4 %; Eosinophils # (auto) 0.18 K/uL (0-0.5); Eosinophils % (auto) 2.6 %; Hematocrit (blood only) 34.1 % (42-52); Immature Granulocytes # (auto) 0.01 K/uL (0.00-0.02); Immature Granulocytes % (auto) 0.1 %; Lymphocytes # (auto) 1.41 K/uL (1.2-3.4); Lymphocytes % (auto) 20.4 %; Mean Corpuscular Hemoglobin 27.1 pg (25-34); Mean Corpuscular Hgb Conc 32.3 g/dL (32-36); Mean Platelet Volume 10.1 fL (7.4-10.4); Monocytes # (auto) 0.66 K/uL (0.11-0.59); Monocytes % (auto) 9.6 %; Neutrophils # (auto) 4.62 K/uL (1.4-6.5); Neutrophils % (auto) 66.9 %; Platelet Count 209 K/uL (130-400); RDW Coefficient of Variation 18.4 % (11.5-14.5); RDW Standard Deviation 57.3 fL (36.4-46.3); Red Blood Count 4.06 M/uL (4.7-6.1); White Blood Count 6.91 K/uL (4.8-10.8)
[2019-07-17 15:32] LABS: Appearance Urine Clear (Clear); Bilirubin Urine Negative (Negative); Blood Urine Negative (Negative); Color Urine Yellow; Glucose Urine UA Negative (Negative); Ketones Urine Trace (Negative); Leukocyte Esterase Urine Negative (Negative); Nitrite Urine Negative (Negative); Protein Urine Negative (Negative); Specific Gravity Urine 1.025 (1.000-1.030); Urobilinogen Urine Negative (Negative)
[2019-07-17 15:48] LABS: BUN Creatinine Ratio 25.3 (10-20); Calcium 9.5 mg/dl (8.5-10.1); Creatinine Clr Calc Pharmacy 47.2 ml/min; Est GFR (African American) 71.9; Potassium 4.6 mmol/L (3.5-5.1)
[2019-07-17 15:50] LABS: INR 1.1 (0.9-1.1); Partial Thromboplastin Ratio 1.2; Partial Thromboplastin Time 31.2 Seconds (21.0-31.0)
--- NOTE | 2019-07-19 13:26 | History & Physical Report ---
Date of Service July 19, 2019 Assessment & Plan (1) Foot ulcer due to secondary DM: Schedule Right Heel Incision and Drainage, Removal Stimulan Beads, Implantation of 5 ml Stimulan Antibiotic Beads. All potential risks, benefits, complications, alternatives, and rehab have been discussed with the patient and he wishes to proceed. He will be scheduled for 07.20.19. (2) Acute osteomyelitis of right calcaneus: History of Present Illness Chief Complaint: right heel ulcer Primary Care Provider: Munir Andino, III, VIDEO PRODUCTION COORDINATOR This is a patient with a chronic posterior heel ulceration. He had undergone a previous surgery for debridement of the calcaneus and implantation of Stimulan antibiotic beads. After the surgery, he has had a persistent ulceration despite wound clinic tx's and IV antibiotics. He had a repeat MRI that suggested persistent calcaneal osteomyelitis. He is being set up for surgical management. Allergies Allergy/AdvReac Type Severity Reaction Status Date / Time Penicillins Allergy Unknown GENERALIZED Verified 07/19/19 08:15 AND FACIAL SWELLING shellfish derived Allergy Unknown GENERALIZED Verified 07/16/19 14:41 AND FACIAL SWELLING Sulfa (Sulfonamide Allergy Unknown GENERALIZED Verified 07/16/19 14:41 Antibiotics) AND FACIAL SWELLING Home Medications Home Medications Medication Instructions Recorded Confirmed Type amiodarone 200 mg tablet 200 mg PO QPM 06/13/18 07/19/19 History apixaban 5 mg tablet 5 mg PO BID 06/13/18 07/19/19 History metformin 1,000 mg tablet 1,000 mg PO BID 06/13/18 07/19/19 History multivitamin tablet 1 tab PO QAM 06/13/18 07/19/19 History niacin 500 mg tablet 500 mg PO BID tab 06/13/18 07/19/19 History rosuvastatin 20 mg tablet 10 mg PO QPM tab 06/13/18 07/19/19 History mecobalamin (vitamin B12) 1,000 1,000 mcg SL DAILY #30 tab 04/12/19 07/19/19 Rx mcg disintegrating tablet,sublingual Microlet lancets #50 ea 04/20/19 07/19/19 History blood sugar diagnostic strips #10 ea 07/01/19 07/19/19 History cholecalciferol (vitamin D3) 2,000 units PO QAM 07/16/19 07/19/19 History levofloxacin [Levaquin] 500 mg PO HS 07/16/19 07/19/19 History levothyroxine 50 mcg tablet 50 mcg PO QAM #90 tab 07/16/19 07/19/19 Rx Past Med/Surg History Medical History Difficult airway for intubation Right ELLEN: 03/24/17 - Elective Glidescope #4 due to limited ROM, ETT #7.5, HiLo Straight, Grade 2 View with Large Epiglottis (no specific indication why SAB not used) Hypothyroidism CKD (chronic kidney disease), stage III Osteomyelitis right heel A-fib vs. 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, reason for upcoming procedure PAD (peripheral artery disease) s/p right SFA angioplasty Surgical History S/P closed reduction of dislocated total hip prosthesis History of cardioversion x3 - most recent at [facility] 2018 History of incision and drainage Right heel I&D, antibiotic beads: 04/06/19: SAB x 1 at L3/L4 at [facility] History of appendectomy History of cardiac cath 1994 -- subsequent CABG x3 History of colonoscopy History of fracture COLLAR BONE/SURGERY FOR History of hernia surgery RIGHT INGUINAL History of hip surgery X2 FOR DISLOCATION RIGHT (POST RIGHT ELLEN) History of neck surgery C4-5 "CADAVER BONE" History of repair of left rotator cuff History of tonsillectomy History of total right hip arthroplasty History of vascular surgery right heel vascular procedure (Dr. 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 No erythema. No drainage. Neurologic: normal touch/pain/proprioception Psychiatric: A+Ox3, euthymic affect Lymphatic: no cervical or axillary lymphadenopathy
[~2019-07-20 09:46] MED LIST changes: +LR 15ML/HR IV SCH; -LR 500ML BOLUS, THEN 15ML/HR IV SCH
--- NOTE | 2019-07-20 11:31 | History & Physical Bridge Note ---
Date of Service July 20, 2019 History & Physical Bridge Note I have examined the patient, reviewed the History & Physical and in the interval since the performance of the History & Physical I have noted the following changes of clinical significance: no changes noted
[2019-07-20] MEDS ORDERED: fentaNYL citrate 100 MCG/2 ML VIAL ONE (13:33)
[2019-07-20] MEDS ORDERED: LIDOCAINE HCL 2% 2 ML VIAL/AMP(20MG/ML) INFIL ONE (13:33)
[2019-07-20] MEDS ORDERED: PROPOFOL IV EMULSION 10 MG/ML 20 ML VIAL IV ONE (13:33)
[2019-07-20] MEDS ORDERED: VANCOMYCIN HCL 1000MG/20ML VIAL ONE (14:31)
[2019-07-20] MEDS ORDERED: GENTAMICIN SULFATE 40 MG/ML 2 ML VIAL ONE (14:31)
[2019-07-20] MEDS ORDERED: BACITRACIN INJ 50,000 UNIT VIAL ONE (14:31)
[2019-07-20] MEDS ORDERED: BUPIVACAINE 0.5 % 5 MG/1 ML MPF 30ML VIAL ONE (14:31)
[2019-07-20] MEDS ORDERED: SODIUM CHLORIDE 0.9% INJ 10 ML VIAL ONE (15:49)
[2019-07-20] MEDS ORDERED: CLINDAMYCIN PHOS 300 MG/2 ML VIAL ONE (15:49)
[2019-07-20] MEDS ORDERED: ePHEDrine sulfate 50 MG/ML SYR ONE (15:58)
[2019-07-20] MEDS ORDERED: CLINDAMYCIN 600 MG/54 ML BAG IV SCH (16:00)
[2019-07-20] MEDS ORDERED: OXYCODONE HCL IR 5 MG TAB (IMMEDIATE RELEASE) PO PRN ×3 (16:02→19:09)
[2019-07-20] MEDS ORDERED: ACETAMINOPHEN 325 MG TAB PO PRN (16:02)
[2019-07-20] MEDS ORDERED: HYDROmorphone INJ 0.5 MG/0.5 ML SYR IV PRN ×2 (16:02→19:09)
[2019-07-20] MEDS ORDERED: ONDANSETRON INJ 2 MG/ML 2 ML VIAL IV PRN ×2 (16:02→19:09)
--- NOTE | 2019-07-20 16:10 | Post Operative Brief Note ---
Immediate Post Op Note v1 Date of Surgery July 20, 2019 Pre & Post Diagnosis Operation Date: 07/20/19 12:10 Pre-Op Diagnosis: Right calcaneal osteomyelitis, foot ulcer due to secondary diabetes mellitus, retained Stimulan beads/hardware deep bone Post-Op Diagnosis: Right calcaneal osteomyelitis, foot ulcer due to secondary diabetes mellitus, retained Stimulan beads/hardware deep bone Procedure Operation Date: 07/20/19 12:10 Actual Procedures p Right Heel irrigation debridement, Removal deep bone Stimulan Beads/hardware, Implantation of 5 ml Stimulan Antibiotic Beads, Debridement of Skin, Achilles tendon, calcaneus and Fascia(Right) - Domo Royal DO Surgeon Domo Royal DO Agency Sales Representative Agusto Short PA-C Estimated Blood Loss 10 Findings Consistent with Post-Op Diagnosis Specimens None Anesthesia Type MAC Regional Complications none Disposition Accompanied Patient To Recovery: No Disposition: Recovery Room Overlapping Procedure I was present for: the critical portions of procedure. I was immediately available: during the entire case.
--- NOTE | 2019-07-20 16:41 | Anesthesiology Progress Note ---
Date of Service July 20, 2019 Anesthesia Post Procedure Vital Signs Vital Signs: Temp Pulse Pulse Resp BP Pulse Ox 07/20/19 16:30 36.6 C 70 16 171/75 H 100 07/20/19 16:20 68 16 168/69 H 100 07/20/19 16:12 36.4 C L 67 16 157/69 H 99 07/20/19 10:23 36.6 C 70 20 140/77 98 Transfer of Care Handoff Completed per policy Notes Mental Status: alert / awake / arousable and participated in evaluation Nausea / Vomiting: adequately controlled Pain: adequately controlled Airway Patency, RR, SpO2: stable & adequate BP & HR: stable & adequate Hydration State: stable & adequate Neuraxial Anesthesia: was administered and sensory block is resolving Anesthetic Complications: no major complications apparent and Pt Satisfied with anesthetic care
[2019-07-20] MEDS ORDERED: ALUMINUM/MAGNESIUM SUSP 30 ML UDC PO PRN (19:09)
[2019-07-20] MEDS ORDERED: BISACODYL 10 MG SUPP PR PRN (19:09)
[2019-07-20] MEDS ORDERED: NALOXONE HCL 0.4 MG/1 ML VIAL/CARP IV PRN (19:09)
[2019-07-20] MEDS ORDERED: TAMSULOSIN HCL 0.4 MG CAP PO PRN (19:09)
[2019-07-20] MEDS ORDERED: MAGNESIUM HYDROXIDE SUSP 30 ML UDC PO PRN (19:09)
[2019-07-20] MEDS ORDERED: METOCLOPRAMIDE HCL INJ 5 MG/ML 2 ML VIAL IV PRN (19:09)
[2019-07-20] MEDS: SODIUM CHLORIDE 0.9% 1000ML 1,000 ML IV SCH (19:36)
[2019-07-20] MEDS: KETOROLAC TROMETHAMINE 15 MG/ML VIAL IV SCH (20:32)
[2019-07-20] MEDS: NIACIN 500 MG TAB PO SCH (20:33)
[2019-07-20] MEDS: DOCUSATE SODIUM 100 MG CAP PO SCH (20:33)
[2019-07-20] MEDS: AMIODARONE 200 MG TAB PO SCH (20:37)
[2019-07-20] MEDS: ROSUVASTATIN CALCIUM 10 MG TAB PO SCH (20:37)
[2019-07-20] MEDS: SENNA 8.6 MG TAB PO SCH (20:38)
[2019-07-20] MEDS: ACETAMINOPHEN 500 MG TAB PO SCH (20:38)
--- NOTE | 2019-07-20 20:58 | Operative Report ---
DATE OF OPERATION: 07/20/2019 PREOPERATIVE DIAGNOSES: 1. Right heel diabetic ulcer. 2. Osteomyelitis of the right calcaneus. 3. Retained Stimulan antibiotic beads/hardware deep bone. POSTOPERATIVE DIAGNOSES: 1. Right heel diabetic ulcer. 2. Osteomyelitis of the right calcaneus. 3. Retained Stimulan antibiotic beads/hardware deep bone. PROCEDURES: 1. Right heel irrigation and debridement including skin, fascia, Achilles tendon and calcaneus bone. 2. Removal of antibiotic deep beads/hardware in the calcaneus. 3. Implantation of Stimulan antibiotic beads 5 mL, right calcaneus bone deep. SPECIMENS: None. DRAINS: None. COMPLICATIONS: None. BLOOD LOSS: 10 mL. PERTINENT HISTORY: This is an 83-year-old gentleman who has a history of peripheral vascular disease and diabetes mellitus. He had developed a heel ulcer and subsequent calcaneal osteomyelitis. He underwent a debridement and implantation of antibiotic beads several weeks ago, still had difficulty with a draining sinus from the posterior heel, has been maintaining nonweightbearing. His informs me, however, that the patient has been noncompliant with his nonweightbearing, he has been weightbearing certainly more than recommended. The patient had persistent drainage despite conservative management and hyperbaric oxygen. The patient was then scheduled for surgery for repeat debridement today as indicated. All potential risks, benefits, complications, alternatives, rehab potential for incomplete relief of symptoms, need for further surgery, DVT, PE, , persistent pain, swelling, scarring, weakness, neurovascular injury, wound complications, hardware failure were discussed with the patient and his , also possible need for further potential amputation was discussed with the family. They decided to proceed with the procedure as indicated. DESCRIPTION OF PROCEDURE: The patient was taken to the operative suite, placed supine on the operating room table. After review of consent and identification of proper operative site, the patient was sedated. He is in a left lateral decubitus position on the operative table over a beanbag. All bony prominences were properly padded and protected. The operative site was identified. Right lower extremity was then elevated and an Esmarch bandage was applied. Esmarch tourniquet was applied over sterile surgical towel at the level of the ankle. Next, the skin was then sharply debrided with a 15 blade scalpel over the region of te calcaneal tuberosity and the insertion of the Achilles. This was sharply debrided with a 15 blade scalpel. The Stimulan beads that were placed previously were encountered and these were then removed with a small curette curetting a small amount of calcaneus bone as well. Once the base was clear and clean and the beads had been removed, the wound was copiously irrigated with pulsatile lavage with bacitracin 3 liters. Once this was completed, new 5 mL of Stimulan beads was created with vancomycin and gentamicin. The small beads were then impacted into the calcaneus bone deep and around the soft tissues. Next, the skin was then sharply ellipsed superiorly and inferiorly to mothers helper with closure that was ellipsed with a 15 blade scalpel and then the skin was then loosely approximated with interrupted 2-0 nylon sutures. Next, a sterile compressive dressing and ABD pads and Tucker wrap was applied sterilely. The heel was injected with 0.5% Marcaine plain and then the tourniquet was released. The toes were pink and warm. Cap refill was brisk. The patient was awakened and taken to recovery in stable condition. I attest to the content of the Intraoperative Record and any orders documented therein. Any exceptions are noted below. SÁNCHEZD
[2019-07-21] MEDS: CLINDAMYCIN 600 MG in DEXTROSE 5% 50 ML IV SCH ×2 (01:01→08:27)
[2019-07-21] MEDS: KETOROLAC TROMETHAMINE 15 MG/ML VIAL IV SCH ×3 (01:02→14:07)
[2019-07-21] MEDS: SODIUM CHLORIDE 0.9% 1000ML 1,000 ML IV SCH (05:53)
[2019-07-21] MEDS: LEVOTHYROXINE SODIUM 50 MCG TABLET PO SCH (05:55)
[2019-07-21] MEDS: ACETAMINOPHEN 500 MG TAB PO SCH ×3 (05:55→21:40)
[2019-07-21 06:58] LABS: Hematocrit (blood only) 29.9 % (42-52); Mean Corpuscular Hemoglobin 27.6 pg (25-34); Mean Corpuscular Hgb Conc 33.4 g/dL (32-36); Mean Corpuscular Volume 82.6 fL (80-100); Mean Platelet Volume 9.5 fL (7.4-10.4); Platelet Count 181 K/uL (130-400); RDW Standard Deviation 54.6 fL (36.4-46.3); Red Blood Count 3.62 M/uL (4.7-6.1)
[2019-07-21 07:35] LABS: BUN Creatinine Ratio 17.9 (10-20); Calcium 8.3 mg/dl (8.5-10.1); Creatinine Clr Calc Pharmacy 44.7 ml/min; Est GFR (African American) 67.4; Est GFR (Non-African American) 58.1
[2019-07-21] MEDS: METFORMIN HCL 500 MG TAB PO SCH ×2 (08:27→17:45)
[2019-07-21] MEDS: MULTIVITAMIN TAB PO SCH (08:36)
[2019-07-21] MEDS: DOCUSATE SODIUM 100 MG CAP PO SCH ×2 (08:36→21:41)
[2019-07-21] MEDS: NIACIN 500 MG TAB PO SCH ×2 (08:36→21:41)
[2019-07-21] MEDS: APIXABAN 5 MG TABLET PO SCH ×2 (08:36→21:41)
[2019-07-21] MEDS: CHOLECALCIFEROL 1,000 UNITS TAB PO SCH (08:40)
--- NOTE | 2019-07-21 08:49 | Orthopedic Progress Note ---
Date of Service July 21, 2019 Assessment & Plan (1) Heel ulcer due to DM: 83 yo male stable POD #1 s/p right heel repeat I&D, replacement Stimulan beads, pt has been unable to urinate post-op(straight cath x 2) 1. Med management- consider urology consult if need cath again 2. DVT prophylaxis- Eliquis 3. D/C planning Subjective Pt sitting bedside eating breakfast, denies complaints, pain controlled Physical Exam Physical Exam: Dressing intact, toes mobile Results & Data Vital Signs (Past 12 Hours) Vital Signs Temp Pulse Pulse Resp BP Pulse Ox 07/21/19 03:33 36.5 C 65 16 157/72 H 98 07/21/19 00:25 36.4 C L 62 15 134/73 99 Laboratory Results 07/21/19 07/21/19 07/20/19 Range/Units 06:36 06:36 20:42 WBC 6.10 (4.8-10.8) K/uL RBC 3.62 L (4.7-6.1) M/uL Hgb 10.0 L (14.0-18.0) g/dL Hct 29.9 L (42-52) % MCV 82.6 (80-100) fL MCH 27.6 (25-34) pg MCHC 33.4 (32-36) g/dL RDW Std Deviation 54.6 H (36.4-46.3) fL RDW Coeff of Cyndi 18.0 H (11.5-14.5) % Plt Count 181 (130-400) K/uL MPV 9.5 (7.4-10.4) fL Sodium 140 (136-145) mmol/L Potassium 4.0 (3.5-5.1) mmol/L Chloride 107 (98-107) mmol/L Carbon Dioxide 26 (21-32) mmol/L Anion Gap 7.0 (3-11) BUN 21 H (7-18) mg/dl Creatinine 1.15 (0.6-1.4) mg/dl Est Cr Clr Drug Dosing 44.7 ml/min Est GFR ( Amer) 67.4 Est GFR (Non-Af Amer) 58.1 BUN/Creatinine Ratio 17.9 (10-20) Glucose 91 (70-99) mg/dl POC Glucose 143 H (70-99) Calcium 8.3 L (8.5-10.1) mg/dl 07/20/19 07/20/19 Range/Units 16:16 10:16 WBC (4.8-10.8) K/uL RBC (4.7-6.1) M/uL Hgb (14.0-18.0) g/dL Hct (42-52) % MCV (80-100) fL MCH (25-34) pg MCHC (32-36) g/dL RDW Std Deviation (36.4-46.3) fL RDW Coeff of Cyndi (11.5-14.5) % Plt Count (130-400) K/uL MPV (7.4-10.4) fL Sodium (136-145) mmol/L Potassium (3.5-5.1) mmol/L Chloride (98-107) mmol/L Carbon Dioxide (21-32) mmol/L Anion Gap (3-11) BUN (7-18) mg/dl Creatinine (0.6-1.4) mg/dl Est Cr Clr Drug Dosing ml/min Est GFR ( Amer) Est GFR (Non-Af Amer) BUN/Creatinine Ratio (10-20) Glucose (70-99) mg/dl POC Glucose 90 100 H (70-99) Calcium (8.5-10.1) mg/dl
[2019-07-21] MEDS ORDERED: MECOBALAMIN 1000 MCG SL SCH (09:00)
[2019-07-21] MEDS ORDERED: MULTIVITAMIN TAB PO SCH (09:00)
[2019-07-21] MEDS: levoFLOXacin 500 MG TAB PO SCH (11:21)
--- NOTE | 2019-07-21 12:52 | Urology Consultation ---
Date of Consultation July 21, 2019 Assessment & Plan (1) Retention of urine, unspecified: Long discussion about retention. Discussed lower urinary tract symptoms. Discussed previous issues. Discussed options for management. Discussed combination of anesthetic, pain medication, and lack of mobility as contributing factors. Discussed normalization of bowel function. Encourage ambulation and normalization of bowel function. Discussed options including catheters, intermittent catheters, and observation. Patient will likely need outpatient follow-up to further evaluate. Discussed possibility of future episodes especially with other interventions and surgeries. Will monitor. Voiding small amounts frequently. Call if changes. Monitor PVR with bladder scan. Approx 300 cc and less would be alright to observe. Patient to ambulate and increase fluids.Discusse double voiding. History of Present Illness Attending Physician: Domo Royal, History of Present Illness New patient admitted after surgery on chronic foot ulcer. Patient postoperatively has had issues. Has a long history of lower urinary tract symptoms. Was severe at times. With minor bother. Postoperatively patient was unable to void. Had required straight catheterization. Patient complex medical, surgical, social, and family history were all reviewed please see records for full report. Previously had issues with retention when hip surgery. Last PVr was approx 300cc. Voiding small amounts frequently. Allergies Allergy/AdvReac Type Severity Reaction Status Date / Time Penicillins Allergy Unknown GENERALIZED Verified 07/20/19 10:18 AND FACIAL SWELLING shellfish derived Allergy Unknown GENERALIZED Verified 07/20/19 10:18 AND FACIAL SWELLING Sulfa (Sulfonamide Allergy Unknown GENERALIZED Verified 07/20/19 10:18 Antibiotics) AND FACIAL SWELLING Home Medications Home Medications Medication Instructions Recorded Confirmed Type amiodarone 200 mg tablet 200 mg PO QPM 06/13/18 07/20/19 History apixaban 5 mg tablet 5 mg PO BID 06/13/18 07/20/19 History metformin 1,000 mg tablet 1,000 mg PO BID 06/13/18 07/20/19 History multivitamin tablet 1 tab PO QAM 06/13/18 07/20/19 History niacin 500 mg tablet 500 mg PO BID tab 06/13/18 07/20/19 History rosuvastatin 20 mg tablet 10 mg PO QPM tab 06/13/18 07/20/19 History mecobalamin (vitamin B12) 1,000 1,000 mcg SL DAILY #30 tab 04/12/19 07/20/19 Rx mcg disintegrating tablet,sublingual Microlet lancets #50 ea 04/20/19 07/19/19 History blood sugar diagnostic strips #10 ea 07/01/19 07/19/19 History cholecalciferol (vitamin D3) 2,000 units PO QAM 07/16/19 07/20/19 History levothyroxine 50 mcg tablet 50 mcg PO QAM #90 tab 07/16/19 07/20/19 Rx levofloxacin 500 mg PO DAILY 14 Days #14 tab 07/20/19 Rx oxycodone-acetaminophen [Percocet] 1 - 2 tab PO Q6H PRN #30 tab 07/20/19 Rx Patient History Medical History Difficult airway for intubation Right ELLEN: 03/24/17 - Elective Glidescope #4 due to limited ROM, ETT #7.5, HiLo Straight, Grade 2 View with Large Epiglottis (no specific indication why SAB not used) Hypothyroidism CKD (chronic kidney disease), stage III Osteomyelitis right heel A-fib vs. 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, reason for upcoming procedure PAD (peripheral artery disease) s/p right SFA angioplasty Surgical History S/P closed reduction of dislocated total hip prosthesis History of cardioversion x3 - most recent at [facility] 2018 History of incision and drainage Right heel I&D, antibiotic beads: 04/06/19: SAB x 1 at L3/L4 at [facility] History of appendectomy History of cardiac cath 1994 -- subsequent CABG x3 History of colonoscopy History of fracture COLLAR BONE/SURGERY FOR History of hernia surgery RIGHT INGUINAL History of hip surgery X2 FOR DISLOCATION RIGHT (POST RIGHT ELLEN) History of neck surgery C4-5 "CADAVER BONE" History of repair of left rotator cuff History of tonsillectomy History of total right hip arthroplasty History of vascular surgery right heel vascular procedure (Dr. 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 HEENT: Normocephalic Atraumatic. Inspection normal. Cranial Nerves 2-12 Grossly intact. Normal inspection of face. Normal inspection of neck. Psychologic: Normal affect. Respiratory: Nonlabored. No use of accessory muscles. No tachypnea or dyspnea. Cardiovascular: No tachycardia Skin: Hydro and Dry. No rashes or visible lesions. Extremities/Lymphatics: No edema Abdomen: Moderately-distended. No rebound or guarding. Results & Data Vital Signs (Past 12 Hours) Vital Signs Temp Pulse Resp BP Pulse Ox 07/21/19 03:33 36.5 C 65 16 157/72 H 98 PG Care Time/CCT Total # of Minutes Spent Total Time Spent with Patient: Total time spent is greater than 50% in coordination of care (as documented) at patient's floor/unit and/or counseling patient:
--- NOTE | 2019-07-21 13:57 | Infectious Disease Consult ---
Date of Consultation July 21, 2019 Assessment & Plan (1) Acute osteomyelitis of right calcaneus: Patient with osteomyelitis of right calcaneus, now s/p re-debridement with placement of antibiotic beads. Will add IV daptomycin for now. Will discuss further management with orthopedics. Will follow. History of Present Illness Reason for Consultation: Right calcaneus osteomyelitis Attending Physician: Domo Royal, DO History of Present Illness 83-year-old male well-known to me from previous infectious disease follow-up, with a history of diabetes mellitus, hypertension, hyperlipidemia, peripheral vascular disease, with chronic nonhealing right heel wound with underlying osteomyelitis. Has undergone prolonged antibiotic therapy and hyperbaric oxygen therapy. But states that he has not done well with nonweightbearing recently, and was now admitted for further debridement and placement of antibiotic beads. He has had no significant fever or chills. Has been on levofloxacin therapy. Previous recent cultures have been showing only skin organisms. Denies any other new complaints. Allergies Allergy/AdvReac Type Severity Reaction Status Date / Time Penicillins Allergy Unknown GENERALIZED Verified 07/20/19 10:18 AND FACIAL SWELLING shellfish derived Allergy Unknown GENERALIZED Verified 07/20/19 10:18 AND FACIAL SWELLING Sulfa (Sulfonamide Allergy Unknown GENERALIZED Verified 07/20/19 10:18 Antibiotics) AND FACIAL SWELLING Home Medications Home Medications Medication Instructions Recorded Confirmed Type amiodarone 200 mg tablet 200 mg PO QPM 06/13/18 07/20/19 History apixaban 5 mg tablet 5 mg PO BID 06/13/18 07/20/19 History metformin 1,000 mg tablet 1,000 mg PO BID 06/13/18 07/20/19 History multivitamin tablet 1 tab PO QAM 06/13/18 07/20/19 History niacin 500 mg tablet 500 mg PO BID tab 06/13/18 07/20/19 History rosuvastatin 20 mg tablet 10 mg PO QPM tab 06/13/18 07/20/19 History mecobalamin (vitamin B12) 1,000 1,000 mcg SL DAILY #30 tab 04/12/19 07/20/19 Rx mcg disintegrating tablet,sublingual Microlet lancets #50 ea 04/20/19 07/19/19 History blood sugar diagnostic strips #10 ea 07/01/19 07/19/19 History cholecalciferol (vitamin D3) 2,000 units PO QAM 07/16/19 07/20/19 History levothyroxine 50 mcg tablet 50 mcg PO QAM #90 tab 07/16/19 07/20/19 Rx levofloxacin 500 mg PO DAILY 14 Days #14 tab 07/20/19 Rx oxycodone-acetaminophen [Percocet] 1 - 2 tab PO Q6H PRN #30 tab 07/20/19 Rx Patient History Medical History Difficult airway for intubation Right ELLEN: 03/24/17 - Elective Glidescope #4 due to limited ROM, ETT #7.5, HiLo Straight, Grade 2 View with Large Epiglottis (no specific indication why SAB not used) Hypothyroidism CKD (chronic kidney disease), stage III Osteomyelitis right heel A-fib vs. 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, reason for upcoming procedure PAD (peripheral artery disease) s/p right SFA angioplasty Surgical History S/P closed reduction of dislocated total hip prosthesis History of cardioversion x3 - most recent at [facility] 2018 History of incision and drainage Right heel I&D, antibiotic beads: 04/06/19: SAB x 1 at L3/L4 at [facility] History of appendectomy History of cardiac cath 1994 -- subsequent CABG x3 History of colonoscopy History of fracture COLLAR BONE/SURGERY FOR History of hernia surgery RIGHT INGUINAL History of hip surgery X2 FOR DISLOCATION RIGHT (POST RIGHT ELLEN) History of neck surgery C4-5 "CADAVER BONE" History of repair of left rotator cuff History of tonsillectomy History of total right hip arthroplasty History of vascular surgery right heel vascular procedure (Dr. 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 Other Information That Helps Us Care for You: No Feels Safe at Home: Yes Safety Concerns: Feels Safe At This Time Smoking Status: Never smoker Do You Dip or Chew Tobacco: No ; Second Hand Exposure: No ; Tobacco Cessation Education Requested by Patient: No Hx Alcohol Use: Yes (Socially) Hx Substance Use: No Review of Systems Review of Systems: All systems reviewed & are unremarkable except as noted in HPI & below Physical Exam Constitutional: WD/WN, vitals as above comfortable; no acute distress Eyes: PERRL, conjunctivae normal, anicteric sclerae ENMT: external ear and nose normal, oropharynx normal Neck: trachea midline, no thyromegaly neck nontender Respiratory: normal respiratory effort, lungs clear to auscultation normal percussion; does not use accessory muscles Cardiovascular: Rate/Rhythm: regular rate and regular rhythm Heart Sounds: normal S1 and normal S2; no gallop, no murmur and no cardiac rub Vessels: normal peripheral pulses; no JVD Gastrointestinal (Abdomen): normal bowel sounds, soft, nontender, no hepatosplenomegaly Musculoskeletal: no cyanosis or clubbing, extremities motor strength 5/5 Spine: thoracic spine normal to inspection and lumbar spine normal to inspection; no cervical spinal tenderness Skin: no rashes, warm and dry normal turgor and + wound (Dressing in place right foot) Neurologic: patellar DTR's 2+ bilat, sensation intact no focal motor deficits Psychiatric: A+Ox3, euthymic affect Orientation: cooperative Lymphatic: no cervical or axillary lymphadenopathy no inguinal lymphadenopathy Results & Data Vital Signs (Past 12 Hours) Vital Signs Temp Pulse Resp BP Pulse Ox 07/21/19 03:33 36.5 C 65 16 157/72 H 98 Laboratory Results Short CBC 07/21/19 Range/Units 06:36 WBC 6.10 (4.8-10.8) K/uL Hgb 10.0 L (14.0-18.0) g/dL Hct 29.9 L (42-52) % Plt Count 181 (130-400) K/uL BMP 07/21/19 06:36 Sodium 140 Potassium 4.0 Chloride 107 Carbon Dioxide 26 BUN 21 H Creatinine 1.15 Glucose 91 Calcium 8.3 L Diagnostic Findings Microbiology 07/17/19 Unknown Urine,Clean Catch Urine Culture - Final No growth - less than 1,000 colonies/mL. PG Care Time/CCT Total # of Minutes Spent Total Time Spent with Patient: Total time spent is greater than 50% in coordination of care (as documented) at patient's floor/unit and/or counseling patient:
[2019-07-21] MEDS ORDERED: DAPTOmycin 500 MG VIAL IV SCH (14:00)
[2019-07-21] MEDS: DAPTOmycin 425 MG in SYRINGE 0 ML IV SCH (15:18)
--- NOTE | 2019-07-21 15:36 | Consultation ---
Date of Consultation July 21, 2019 Assessment & Plan (1) Post-operative state: Post I&D of the right heel with placement of antibiotic beads 07/21 Pain control per primary, DVT prophylaxis with home apixaban (2) CAD, multiple vessel: Continue statin, does not appear to be on ASA (3) CKD (chronic kidney disease), stage III: Kidney function stable Avoid nephrotoxins where possible (4) DM II (diabetes mellitus, type II), controlled: continue home metformin BSG ac & hs Last A1c 03/15 6.9% Blood sugars appear controlled, consult pharmacy if patient is becoming hyperglycemic (5) Atrial flutter: Continue apixaban, amiodarone (6) Hypothyroidism: continue home levothyroxine Medicine will sign off at this time. Please let us know if we can be of further assistance or if we can answer any questions. History of Present Illness Mr. Li post right heal I&D 07/20. He is feeling well, up to a chair. He had his Harman catheter removed and has voided since. He denies any pain or discomfort. Pmhx: CAD, DMII, A.flutter, CKD, hypothyroidism Social: , retired form [employer], never smoker, non drinker Family: mother from Alzheimer's Attending Physician: Domo Royal, Allergies Allergy/AdvReac Type Severity Reaction Status Date / Time Penicillins Allergy Unknown GENERALIZED Verified 07/20/19 10:18 AND FACIAL SWELLING shellfish derived Allergy Unknown GENERALIZED Verified 07/20/19 10:18 AND FACIAL SWELLING Sulfa (Sulfonamide Allergy Unknown GENERALIZED Verified 07/20/19 10:18 Antibiotics) AND FACIAL SWELLING Home Medications Home Medications Medication Instructions Recorded Confirmed Type amiodarone 200 mg tablet 200 mg PO QPM 06/13/18 07/20/19 History apixaban 5 mg tablet 5 mg PO BID 06/13/18 07/20/19 History metformin 1,000 mg tablet 1,000 mg PO BID 06/13/18 07/20/19 History multivitamin tablet 1 tab PO QAM 06/13/18 07/20/19 History niacin 500 mg tablet 500 mg PO BID tab 06/13/18 07/20/19 History rosuvastatin 20 mg tablet 10 mg PO QPM tab 06/13/18 07/20/19 History mecobalamin (vitamin B12) 1,000 1,000 mcg SL DAILY #30 tab 04/12/19 07/20/19 Rx mcg disintegrating tablet,sublingual Microlet lancets #50 ea 04/20/19 07/19/19 History blood sugar diagnostic strips #10 ea 07/01/19 07/19/19 History cholecalciferol (vitamin D3) 2,000 units PO QAM 07/16/19 07/20/19 History levothyroxine 50 mcg tablet 50 mcg PO QAM #90 tab 07/16/19 07/20/19 Rx levofloxacin 500 mg PO DAILY 14 Days #14 tab 07/20/19 Rx oxycodone-acetaminophen [Percocet] 1 - 2 tab PO Q6H PRN #30 tab 07/20/19 Rx Patient History Medical History Difficult airway for intubation Right ELLEN: 03/24/17 - Elective Glidescope #4 due to limited ROM, ETT #7.5, HiLo Straight, Grade 2 View with Large Epiglottis (no specific indication why SAB not used) Hypothyroidism CKD (chronic kidney disease), stage III Osteomyelitis right heel A-fib vs. 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, reason for upcoming procedure PAD (peripheral artery disease) s/p right SFA angioplasty Surgical History S/P closed reduction of dislocated total hip prosthesis History of cardioversion x3 - most recent at [facility] 2018 History of incision and drainage Right heel I&D, antibiotic beads: 04/06/19: SAB x 1 at L3/L4 at [facility] History of appendectomy History of cardiac cath 1994 -- subsequent CABG x3 History of colonoscopy History of fracture COLLAR BONE/SURGERY FOR History of hernia surgery RIGHT INGUINAL History of hip surgery X2 FOR DISLOCATION RIGHT (POST RIGHT ELLEN) History of neck surgery C4-5 "CADAVER BONE" History of repair of left rotator cuff History of tonsillectomy History of total right hip arthroplasty History of vascular surgery right heel vascular procedure (Dr. 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 Other Information That Helps Us Care for You: No Feels Safe at Home: Yes Safety Concerns: Feels Safe At This Time Smoking Status: Never smoker Do You Dip or Chew Tobacco: No ; Second Hand Exposure: No ; Tobacco Cessation Education Requested by Patient: No Hx Alcohol Use: Yes (Socially) Hx Substance Use: No Review of Systems Review of Systems: All systems reviewed & are unremarkable except as noted in HPI & below Physical Exam Physical Exam: General: no distress Eyes: normal inspection, PERLL Respiratory: chest non tender, clear to auscultation, normal breath sounds, no respiratory distress, no accessory muscle use Cardiac: regular rate and rhythm, no rub or gallop, systolic murmur, no edema, no jvd GI/: active bowel sounds, no abd pain or tenderness, soft, non distended Extremities: normal range of motion, normal strength, non tender Neuro/Psych: alert and oriented x 3, normal mood and affect Skin: normal color, dry Results & Data Vital Signs (Past 12 Hours) Vital Signs Temp Pulse Resp BP Pulse Ox 07/21/19 15:14 36.4 C L 65 18 149/69 H 99 PG Care Time/CCT Total # of Minutes Spent Total Time Spent with Patient: Total time spent is greater than 50% in coordination of care (as documented) at patient's floor/unit and/or counseling patient:
[2019-07-21] MEDS ORDERED: TAMSULOSIN HCL 0.4 MG CAP PO ONE (19:14)
[2019-07-21] MEDS: ROSUVASTATIN CALCIUM 10 MG TAB PO SCH (21:40)
[2019-07-21] MEDS: AMIODARONE 200 MG TAB PO SCH (21:41)
[2019-07-21] MEDS: SENNA 8.6 MG TAB PO SCH (21:41)
[2019-07-22] MEDS: LEVOTHYROXINE SODIUM 50 MCG TABLET PO SCH (05:07)
[2019-07-22] MEDS: ACETAMINOPHEN 500 MG TAB PO SCH ×3 (05:07→21:23)
[2019-07-22] MEDS: DOCUSATE SODIUM 100 MG CAP PO SCH ×2 (07:33→21:21)
[2019-07-22] MEDS: NIACIN 500 MG TAB PO SCH ×2 (07:34→21:23)
[2019-07-22] MEDS: APIXABAN 5 MG TABLET PO SCH ×2 (07:34→21:22)
[2019-07-22] MEDS: CHOLECALCIFEROL 1,000 UNITS TAB PO SCH (07:34)
[2019-07-22] MEDS: MULTIVITAMIN TAB PO SCH (07:35)
[2019-07-22] MEDS: METFORMIN HCL 500 MG TAB PO SCH ×2 (07:35→16:51)
--- NOTE | 2019-07-22 08:35 | Orthopedic Progress Note ---
Date of Service July 22, 2019 Assessment & Plan (1) Heel ulcer due to DM: 83 yo male stable POD #2 s/p right heel I&D, urinary retention post-op 1. Med management- I&D recommended Dapto 2. DVT prophylaxis- Eliquis, SCDs 3. PT/OT 4. D/C planning- home when stable Subjective Pt resting in bed, pain controlled, denies complaints, nunez placed yesterday due to inability to void Physical Exam Physical Exam: Dressing right heel changed, incision C/D/I, minimal drainage, no erythema, new dressing placed; nunez in place Results & Data Vital Signs (Past 12 Hours) Vital Signs Temp Pulse Resp BP BP Pulse Ox 07/22/19 06:51 36.7 C 77 16 119/53 L 98 07/22/19 03:14 37.0 C 68 16 170/71 H 98 07/22/19 00:26 189/74 H 07/21/19 23:40 36.7 C 69 16 198/79 H 198/80 H 98 Laboratory Results 07/22/19 07/21/19 07/21/19 Range/Units 06:47 20:51 17:04 POC Glucose 89 94 86 (70-99) 07/21/19 07/21/19 Range/Units 12:07 08:15 POC Glucose 86 97 (70-99)
--- NOTE | 2019-07-22 11:12 | Urology Progress Note ---
Date of Service July 22, 2019 Assessment & Plan (1) Retention of urine, unspecified: Discussed options at length. We will plan to maintain Harman for approximately 3 to 4 days. Will likely follow-up as outpatient in our office for a trial of void in the morning to see if patient is able to void. And then be able to monitor for the remainder of day. Patient has an appointment set up with our office in 3 to 4 weeks per patient. Will maintain this and discuss options at that point. Discussed Harman care. Patient understands with no further questions. We will plan follow-up. Subjective Pt resting in bed, pain controlled. No major issues or changes. Last evening after straight cathing 3 times had catheter placed for approximately 650 cc. Patient does have history of issues and required catheterization with last major surgery. Does see Dr. Jagdeep Pedersen. Tolerating catheter well with good drainage. Vision states he thinks he is likely going home later today after his foot surgery. Physical Exam Physical Exam: General: Alert in no acute distress. HEENT: Normocephalic Atraumatic. Inspection normal. Cranial Nerves 2-12 [place] ssly intact. Normal inspection of face. Normal inspection of neck. Psychologic: Normal affect. Respiratory: Nonlabored. No use of accessory muscles. No tachypnea or dyspnea. Cardiovascular: No tachycardia Skin: [place] and Dry. No rashes or visible lesions. Extremities/Lymphatics: No edema. Wound on foot wrapped after irrigation debridement by primary team. Abdomen: Soft Non-distended. No rebound or guarding. : Harman in place draining clear yellow urine Results & Data Vital Signs (Past 12 Hours) Vital Signs Temp Pulse Resp BP BP Pulse Ox 07/22/19 06:51 36.7 C 77 16 119/53 L 98 07/22/19 03:14 37.0 C 68 16 170/71 H 98 07/22/19 00:26 189/74 H 07/21/19 23:40 36.7 C 69 16 198/79 H 198/80 H 98 PG Care Time/CCT Total # of Minutes Spent Total Time Spent with Patient: Total time spent is greater than 50% in coordination of care (as documented) at patient's floor/unit and/or counseling patient:
[2019-07-22] MEDS: levoFLOXacin 500 MG TAB PO SCH (12:07)
[2019-07-22] MEDS ORDERED: SODIUM CHLORIDE 0.9% 1000ML 1,000 ML IV SCH (14:00)
[2019-07-22] MEDS: DAPTOmycin 425 MG in SYRINGE 0 ML IV SCH (16:47)
[2019-07-22] MEDS: ROSUVASTATIN CALCIUM 10 MG TAB PO SCH (21:22)
[2019-07-22] MEDS: SENNA 8.6 MG TAB PO SCH (21:22)
[2019-07-22] MEDS: AMIODARONE 200 MG TAB PO SCH (21:23)
[2019-07-23] MEDS: LEVOTHYROXINE SODIUM 50 MCG TABLET PO SCH (06:00)
[2019-07-23] MEDS: ACETAMINOPHEN 500 MG TAB PO SCH ×2 (06:00→15:21)
--- NOTE | 2019-07-23 07:57 | Anesthesiology Progress Note ---
Date of Service July 23, 2019 Anesthesia Post Procedure Vital Signs Vital Signs: Temp Pulse Pulse Resp BP Pulse Ox 07/23/19 07:21 36.6 C 67 18 157/81 H 97 07/22/19 23:57 36.8 C 67 16 160/71 H 97 07/22/19 21:20 71 158/68 H 07/22/19 16:18 36.5 C 66 16 153/68 H 100 07/22/19 15:17 36.4 C L 70 17 138/73 100 Pain Intensity Right Foot: Pain Intensity: 0 Notes Mental Status: alert / awake / arousable and participated in evaluation Nausea / Vomiting: adequately controlled Pain: adequately controlled Airway Patency, RR, SpO2: stable & adequate BP & HR: stable & adequate Hydration State: stable & adequate
[2019-07-23] MEDS: CHOLECALCIFEROL 1,000 UNITS TAB PO SCH (08:42)
[2019-07-23] MEDS: APIXABAN 5 MG TABLET PO SCH (08:43)
[2019-07-23] MEDS: NIACIN 500 MG TAB PO SCH (08:43)
[2019-07-23] MEDS: METFORMIN HCL 500 MG TAB PO SCH (08:43)
[2019-07-23] MEDS: MULTIVITAMIN TAB PO SCH (08:43)
[2019-07-23] MEDS: DOCUSATE SODIUM 100 MG CAP PO SCH (08:44)
--- NOTE | 2019-07-23 09:37 | Orthopedic Progress Note ---
Date of Service July 23, 2019 Assessment & Plan (1) Heel ulcer due to DM: 83 yo male stable POD #2 s/p right heel I&D, urinary retention post-op 1. Med management- I&D recommended Dapto. Await final dosage for home IV 2. DVT prophylaxis- Eliquis, SCDs 3. PT/OT 4. Daily dressing changes. 5. D/C planning- home when stable Subjective Pt sitting up in chair in room. Undergoing therapy currently. No new complaints. Pain controlled. Physical Exam Physical Exam: Dressing removed. Heel wound with slight maceration around the medial edge but otherwise without purulent drainage. No overt erythema. Redressed. Results & Data Vital Signs (Past 12 Hours) Vital Signs Temp Pulse Resp BP Pulse Ox 07/23/19 07:21 36.6 C 67 18 157/81 H 97 07/22/19 23:57 36.8 C 67 16 160/71 H 97
[2019-07-23] MEDS: levoFLOXacin 500 MG TAB PO SCH (10:17)
[2019-07-23] MEDS: DAPTOmycin 425 MG in SYRINGE 0 ML IV SCH (15:22)
--- NOTE | 2019-07-26 08:42 | Coding Query ---
DEBRIDEMENT DOCUMENTATION To promote full compliance with coding requirements relating to patient care, physician participation is requested in all cases of systems administrator uncertainty. Please assist us with the question(s) below: Please place an X in the parenthesis (x). If other, please document the finding: Type of Debridement: (X) Excisional Debridement- Cutting away necrotic, devitalized tissue or slough to the level of viable tissue using a sharp instrument (i.e. scalpel, scissors, etc.) ( ) Non Excisional Debridement- The removal of necrotic, devitalized tissue or slough by means of scraping, mechanical brushing, flushing, or washing (i.e. irrigation,whirlpool);minor removal of loose fragments. ( ) Other (please specify): Instrument Used: ( ) Scissors (X) Scalpel (X) Curette (X) Other (please specify): [place] Depth of Debridement: ( ) Skin ( ) Skin and Subcutaneous Tissue ( ) Skin, Subcutaneous Tissue and Muscle (X) Skin, Subcutaneous Tissue, Muscle and Bone ( ) Other (please specify): Please Specify the Size of Debridement in cm2: 1.0cm diameter Thank you Mirtha PETERSON
--- NOTE | 2019-07-30 11:26 | Discharge Summary ---
Date of Service July 30, 2019 Admission HPI Per Admitting Provider This is a patient with a chronic posterior heel ulceration. He had undergone a previous surgery for debridement of the calcaneus and implantation of Stimulan antibiotic beads. After the surgery, he has had a persistent ulceration despite wound clinic tx's and IV antibiotics. He had a repeat MRI that suggested persistent calcaneal osteomyelitis. He is being set up for surgical management. Principal Diagnosis right calcaneal osteomyelitis Discharge Exam Constitutional well developed and well nourished; no acute distress ENMT external ear and nose normal, oropharynx normal Neck trachea midline, no thyromegaly Respiratory normal respiratory effort, lungs clear to auscultation Cardiovascular Rate/Rhythm: regular rate and regular rhythm Gastrointestinal (Abdomen) normal bowel sounds, soft, nontender, no hepatosplenomegaly Musculoskeletal Right heel: no erythema. No purulence. Mild maceration at edges of ulceration. Sutures in place. Neurologic normal touch/pain/proprioception Psychiatric A+Ox3, euthymic affect Lymphatic no cervical or axillary lymphadenopathy Discharge Data Allergies Allergy/AdvReac Type Severity Reaction Status Date / Time Penicillins Allergy Unknown GENERALIZED Verified 07/25/19 10:24 AND FACIAL SWELLING shellfish derived Allergy Unknown GENERALIZED Verified 07/25/19 10:24 AND FACIAL SWELLING Sulfa (Sulfonamide Allergy Unknown GENERALIZED Verified 07/25/19 10:24 Antibiotics) AND FACIAL SWELLING Consultations 07/20/19 19:09 Consult Case Management - Discharge Planning Routine Consult Hospitalist Routine Consult Infectious Diseases Routine 07/21/19 08:51 Consult Urology Routine Procedures Performed Operation Date: 07/20/19 12:10 Actual Procedures p Right Heel Incision and Drainage, Removal Stimulan Beads, Implantation of 5 ml Stimulan Antibiotic Beads, Debridement of Skin, Tendon and Fascia(Right) - Domo Royal DO Ordered Studies 07/20/19 05:00 US - OR guided needle placemen Routine Hospital Course (1) Heel ulcer due to DM: The patient underwent the noted procedure on 07.20.19 and was admitted for IV antibiotics. He was kept NWB at all times. Once the proper home dosage was decided for Daptomycin and the patient had a peripheral IV placed, he was discharged home for at least 6 weeks of IV Daptomycin. 83 yo male stable POD #2 s/p right heel I&D, urinary retention post-op 1. Med management- I&D recommended Dapto. Await final dosage for home IV 2. DVT prophylaxis- Eliquis, SCDs 3. PT/OT 4. Daily dressing changes. 5. D/C planning- home when stable Total Time Total Time Spent Total Time Spent (In Minutes): 60 Total Time Includes: Examination of the Patient, Discharge Planning, Medication Reconciliation and Communication With Other Providers Discharge Plan Discharge Items Patient Disposition: Home - Home Health Services Reason For Visit: Non-Pressure Chronic Ulcer of Right Heel & Midfoot Discharge Diagnosis: Chronic Non pressure ulcer right heel Activity: Per Instructions section Weightbearing Comment: use walker or crutches for ambulation Non-emergency contact: Surgeon Call non-emergency contact if: your pain is not controlled, your temperature is above 101.5, your wound has increased redness and your wound has increased drainage Follow-up/Referrals: Munir Andino III, CRNP [Primary Care Provider] - Domo Royal DO [Surgeon] - Diet: Carb Consistent or DM2 Addtl Attending Provider Instructions: ACTIVITY RECOMMENDATIONS: Limitations: No weight bearing to affected limb at all times. SPECIAL CARE INSTRUCTIONS: * Some drainage onto the dressing is normal and is no cause for alarm. * Some swelling is natural especially after walking. * When resting, keep your foot elevated above the level of your heart. * Call [facility] if you notice: -Increased drainage -Fever over 101 degrees F -Severe constant pain BANDAGE: Change dressing daily with adaptic, 4x4's, and camila wrap FOLLOW UP VISIT WITH DR. ROYAL If appointment is not already scheduled: Please call [facility] after you get home today to schedule a follow-up appointment for 2 weeks from the day of your surgery with Dr. Royal at . Follow up with Dr Julien in 2 weeks. Call for appointment. [phone]. Pending Studies at Discharge: No Stand-Alone Forms: Anesthesia/Sedation, Adult, Critical Access Hospital Medications and DC Order Prescriptions: New oxycodone-acetaminophen [Percocet] 5-325 mg tablet 1 - 2 tab PO Q6H PRN (Reason: pain) Qty: 30 RF: 0 daptomycin 500 mg recon soln 425 mg IV DAILY 40 Days Qty: 42 RF: 0 Continued amiodarone [Pacerone] 200 mg tablet 200 mg PO QPM RF: 0 apixaban [Eliquis] 5 mg tablet 5 mg PO BID RF: 0 metformin 1,000 mg tablet 1,000 mg PO BID RF: 0 multivitamin tablet 1 tab PO QAM RF: 0 niacin 500 mg tablet 500 mg PO BID RF: 0 rosuvastatin [Crestor] 20 mg tablet 10 mg PO QPM RF: 0 mecobalamin (vitamin B12) 1,000 mcg tablet,disintegrating 1,000 mcg SL DAILY Qty: 30 RF: 0 levothyroxine 50 mcg tablet 50 mcg PO QAM Qty: 90 RF: 2 lancets [OneTouch UltraSoft Lancets] misc .ROUTE .MEDSUPPLY Qty: 50 RF: 0 OneTouch Ultra Blue Test Strip strip .ROUTE .MEDSUPPLY Qty: 10 RF: 0 cholecalciferol (vitamin D3) 2,000 unit capsule 2,000 units PO QAM RF: 0 Discontinued levofloxacin [Levaquin] 500 mg tablet 500 mg PO HS RF: 0 Discharge Orders: Discharge Order (Routine); Ordered 07/23/19 Ordered By: Agusto Fox/Other Patient Handouts: Surgery Prevent DVT After Admission Data Admit Date/Time: 07/20/19 19:09 Attending Provider: Domo Royal Admit Provider: Domo Royal Primary Care Provider: Munir Andino III Other Providers: Michael Julien ; Liban Graves ; Isaiah Alvarenga II Other Interventions: Discharge Summary Assessment (RN) Last Done: 07/23/19 12:37 DC Date/Time DO NOT enter until pt leaves facility: 07/23/19 16:45
== END 2019-07-23 16:45 | disposition home health service (06) | DRG 629 ==
LOC: ASU 09:46 → 3E 19:09

== ENCOUNTER 2022-11-22 08:34 | Inpatient (IN) ==
[2022-11-22] MEDS ORDERED: NITROGLYCERIN 2% OINTMENT 30GM TUBE EXT STA (08:50)
[2022-11-22 09:23] LABS: Basophils # (auto) 0.04 K/uL (0-0.2); Basophils % (auto) 0.4 %; Eosinophils # (auto) 0.08 K/uL (0-0.50); Eosinophils % (auto) 0.8 %; Hematocrit (blood only) 38.2 % (42.0-52.0); Hemoglobin 12.1 g/dl (14.0-18.0); Immature Granulocytes # (auto) 0.02 K/uL (0.01-0.20); Immature Granulocytes % (auto) 0.2 %; Lymphocytes # (auto) 1.33 K/uL (1.2-3.4); Lymphocytes % (auto) 13.4 %; Mean Corpuscular Hemoglobin 28.1 pg (25.0-34.0); Mean Corpuscular Hgb Conc 31.7 g/dL (32.0-36.0); Mean Corpuscular Volume 88.6 fL (80.0-100.0); Mean Platelet Volume 10.3 fL (9.4-12.4); Monocytes # (auto) 0.54 K/uL (0.11-0.59); Monocytes % (auto) 5.4 %; Neutrophils # (auto) 7.92 K/uL (1.40-6.50); Neutrophils % (auto) 79.8 %; Platelet Count 208 K/uL (130-400); RDW Coefficient of Variation 17.4 % (11.5-14.5); RDW Standard Deviation 55.8 fL (36.4-46.3); Red Blood Count 4.31 M/uL (4.70-6.10); White Blood Count 9.93 K/ul (4.8-10.8)
--- NOTE | 2022-11-22 09:27 | XRay Report ---
XR chest 1V portable HISTORY: 87 years-old Male Chest pain, nonspecific acute chest pain COMPARISON: 02/19/2019 TECHNIQUE: AP view of the chest FINDINGS: Cardiac silhouette is enlarged. Prior median sternotomy and CABG. Atherosclerosis of the aorta. No pn eumothorax, pleural effusion, airspace consolidation or pulmonary edema. Bones of the chest appear gr ossly intact. IMPRESSION: No acute process. ACT 112: Negative or not required by law. The above report was generated using voice recognition software. It may contain grammatical, syntax o r spelling errors. Electronically signed by: Sebastián Leonard M.D. 11/22/2022 9:26 AM
--- NOTE | 2022-11-22 09:30 | Emergency Department Note ---
Impression & Plan Chest pain, Hx of CABG, CAD (coronary artery disease), HTN (hypertension), Diabetic foot ulcers ED Provider Note INFORMANT: Patient and EMS ED PROVIDER(S): Chai Segura MD CHIEF COMPLAINT: Chest pain PLAN: Disposition: Admitted Condition: Good Outpatient prescription management: none Referral: None MEDICAL DECISION MAKING: Patient presented due to chest pain. History was concerning as the patient has a history of CABG. On arrival he was pain-free. His prehospital ECG and ECG here did reveal some subtle inferior ST depression which was new from prior ECG. Chest x-ray showed postsurgical changes. Patient's CBC and chemistry panels were unremarkable. COVID screening negative. The patient was found to have a positive troponin. Coupled with his ECG this raises concerns for cardiac etiology. He did receive Zofran and aspirin prehospital. He did have Nitr opaste applied here in the emergency department and he had good control of blood pressure. I discussed the findings with the patient and family. He will require admission. I discussed the case with the [facility]. Patient was evaluated in the ER and admitted for further management After review of the information above and other included data, I feel the patient requires admission. Triage Nursing notes reviewed and agree them. Vital Signs: reviewed and remarkable for hypertension Prior /Outside records reviewed: Primary care visits reviewed in EMR. Patient has risk factors of atrial flutter, coronary artery disease, dyslipidemia, hypertension, hypothyroidism, and diabetes. Differential diagnosis: Cardiac ischemia, aortic dissection, pulmonary embolism, pneumothorax, pneumonia, pericarditis, myocarditis, esophageal rupture, GERD, cholecystitis, pancreatitis, musculoskeletal, as well as other pathologies. Diagnostics, as interpreted by me: ECG: Twelve-lead ECG reveals a normal sinus rhythm at 92 bpm. There is no ST elevation. There is some mild ST depression inferiorly. Cardiac Monitoring: Cardiac monitoring ordered by me: The patient was placed on continuous cardiac monitoring and observed. It revealed a normal sinus rhythm at 92 beats per minute without ectopy or evidence of dysrhythmia. Medical decision rules: none Imaging studies: Chest x-ray. Findings: A chest x-ray was performed and revealed no pneumothorax, effusion, infiltrate, pulmonary edema, free air under the diaphragm, or wide mediastinum. Impression: No acute disease. HPI: The patient is a 87year old male who presents to the Emergency Room with complaints of chest pain. This started last night and is now resolved. The patient also notes the following associated symptoms, some mild nausea and some difficulty breathing. The patient has been given oxygen, aspirin, and Zofran by EMS for relieving factors. Current pain is rated as 0/10. Pain was a 4. Patient has a history of diabetes and CABG. He also notes dealing with a healing diabetic foot ulcer on the right great toe. Pt denies headache, fevers, chills, diaphoresis, visual changes, neck pain, vomiting, abdominal pain, back p ain, melena, hematochezia, urinary symptoms, numbness, focal weakness, lymphadenopathy, rash, or other complaints. PAST MEDICAL HISTORY: See Below, CAD, diabetes PAST SURGICAL HISTORY: See Below, CABG SOCIAL HISTORY: See Below, HOME MEDICATIONS: See Below ALLERGIES: See Below VITALS: See Below PHYSICAL EXAMINATION: GENERAL: Awake but tired, [id number], in no distress HENT: Normocephalic, atraumatic. Oropharynx unremarkable. EYES: Normal conjunctiva. Sclera non-icteric. NECK: Inspection normal. Non-tender. Supple. No nuchal rigidity. FROM. No masses. RESPIRATORY: Clear to auscultation. No wheezes. No rales. Normal respiratory effort. CARDIAC: Normal rate. Normal rhythm. No murmurs. No rubs. No JVD. GI: Soft, non-distended. No tenderness to palpation. No rebound or guarding. No masses. RECTAL: Deferred. MUSCULOSKELETAL: Atraumatic. Chest examination reveals no tenderness. The back is symmetrical on inspection without obvious abnormality. There is no CVA tenderness to palpation. No joint edema. LOWER EXTREMITIES: Calves are equal size bilaterally and non-tender. 1+ pedal edema. No discoloration. NEURO: Normal sensorium. No sensory or motor deficits noted. SKIN: No rash or jaundice noted. 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 Osteomyelitis PAD (peripheral artery disease) Sepsis Surgical History History of appendectomy History of cardiac cath History of cardioversion History of colonoscopy History of fracture History of hernia surgery History of hip surgery History of incision and drainage History of neck surgery History of repair of left rotator cuff History of tonsillectomy History of total right hip arthroplasty History of vascular surgery Hx of CABG (~1994) S/P cardiac cath S/P closed reduction of dislocated total hip prosthesis Family History Mother Alzheimer disease Father Arthritis Denies family history of Ovarian cancer Prostate cancer Myocardial infarction Breast cancer Colorectal cancer Social History Smoking Status: Never smoker Second Hand Exposure: No; Hx Alcohol Use: No Hx Substance Use: No Preferred Language: Beninese Communication Ability: Effective Visual Impairment: No Limitations Hearing Ability: Normal 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: No Beliefs That Will Affect Care: None marital status: Current Living Situation: Spouse 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 Feels Safe at Home: Yes Safety Concerns: Feels Safe At This Time Childhood Exposure to Second-Hand Smoke: No caffeine: Yes Dental Care, Regularly: Yes Physical Activity Frequency: Daily Seatbelt Use: always Sunscreen Use: No Do you think of yourself as: straight/heterosexual Gender Identity: Male Assistive Devices: Cane and Glasses Allergies Allergies Allergy/AdvReac Type Severity Reaction Status Date / Time Penicillins Allergy Unknown GENERALIZED Verified 11/17/22 13:43 AND FACIAL SWELLING shellfish derived Allergy Unknown GENERALIZED Verified 11/17/22 13:43 AND FACIAL SWELLING Sulfa (Sulfonamide Allergy Unknown GENERALIZED Verified 11/17/22 13:43 Antibiotics) AND FACIAL SWELLING Home Meds Home Medications Medication Instructions Recorded Confirmed lancets (OneTouch UltraSoft #50 ea 04/20/19 11/17/22 Lancets) blood sugar diagnostic (OneTouch #10 ea 07/01/19 11/17/22 Ultra Blue Test Strip) cholecalciferol (vitamin D3) 50 2,000 units PO QAM 07/16/19 11/22/22 mcg (2,000 unit) capsule niacin 500 mg tablet 500 mg PO DAILY 12/24/21 11/22/22 Previous Rx's Medication Instructions Recorded clopidogrel 75 mg tablet 75 mg PO DAILY #30 tabs 10/05/19 amiodarone 200 mg tablet (Pacerone) 200 mg PO QPM #90 tabs 11/09/21 losartan 25 mg tablet 25 mg PO DAILY #90 tabs 06/22/22 apixaban 2.5 mg tablet 2.5 mg PO BID #180 tabs 07/05/22 rosuvastatin 10 mg tablet 10 mg PO DAILY #90 tabs 08/20/22 memantine 10 mg tablet (Namenda) 10 mg PO QPM 7 days #30 tabs 09/28/22 doxycycline hyclate 100 mg tablet 100 mg PO bid #28 tabs 10/22/22 metformin 1,000 mg tablet,extended 1,000 mg PO DAILY #30 tabs 11/01/22 release 24hr collagenase clostridium histo. 250 1 applic topical DAILY 14 days #30 11/11/22 unit/gram topical ointment (Santyl) grams levothyroxine 75 mcg tablet 75 mcg PO DAILY #30 tabs 11/11/22 Results & Data (ED) Vital Signs Vital Signs - 24 hr 11/22/22 08:40 11/22/22 08:47 11/22/22 08:47 Pulse Rate 92 H Pulse Rate from SpO2 Sensor Respiratory Rate 20 Blood Pressure 196/104 H Blood Pressure Mean 134 Pulse Oximetry 98 Oxygen Delivery Method Room Air 11/22/22 09:00 11/22/22 09:00 11/22/22 09:30 Pulse Rate 92 H Pulse Rate from SpO2 Sensor 92 H Respiratory Rate 15 Blood Pressure 164/93 H 161/98 H Blood Pressure Mean 116 119 Pulse Oximetry 96 Oxygen Delivery Method Room Air 11/22/22 09:30 11/22/22 10:00 11/22/22 10:00 Pulse Rate 92 H 72 Pulse Rate from SpO2 Sensor 92 H 74 Respiratory Rate 19 13 Blood Pressure 139/92 Blood Pressure Mean 107 Pulse Oximetry 97 94 Oxygen Delivery Method Room Air Room Air Laboratory Data 11/22/22 08:45 11/22/22 08:45 Lab Results 11/22/22 11/22/22 Range/Units 08:45 08:45 WBC 9.93 (4.8-10.8) K/ul RBC 4.31 L (4.70-6.10) M/uL Hgb 12.1 L (14.0-18.0) g/dl Hct 38.2 L (42.0-52.0) % MCV 88.6 (80.0-100.0) fL MCH 28.1 (25.0-34.0) pg MCHC 31.7 L (32.0-36.0) g/dL RDW Std Deviation 55.8 H (36.4-46.3) fL RDW Coeff of Cyndi 17.4 H (11.5-14.5) % Plt Count 208 (130-400) K/uL MPV 10.3 (9.4-12.4) fL Immature Gran % (Auto) 0.2 % Neut % (Auto) 79.8 % Lymph % (Auto) 13.4 % Gallia % (Auto) 5.4 % Eos % (Auto) 0.8 % Baso % (Auto) 0.4 % Neut # (Auto) 7.92 H (1.40-6.50) K/uL Lymph # (Auto) 1.33 (1.2-3.4) K/uL Gallia # (Auto) 0.54 (0.11-0.59) K/uL Eos # (Auto) 0.08 (0-0.50) K/uL Baso # (Auto) 0.04 (0-0.2) K/uL Immature Gran # (Auto) 0.02 (0.01-0.20) K/uL Sodium 138 (136-145) mmol/L Potassium 4.4 (3.5-5.1) mmol/L Chloride 104 (98-107) mmol/L Carbon Dioxide 24 (21-32) mmol/L Anion Gap 10 (3-11) BUN 38 H (6-23) mg/dl Creatinine 1.56 H (0.6-1.4) mg/dl Est Cr Clr Drug Dosing 30.6 ml/min Est GFR ( Amer) 45.3 ml/min Est GFR (Non-Af Amer) 39.1 ml/min BUN/Creatinine Ratio 24.4 H (10-20) Glucose 142 H (70-99(Fasting)) mg/dl Calcium 9.6 (8.5-10.1) mg/dl Total Bilirubin 0.7 (0.2-1.0) mg/dl AST 17 (13-39) U/L ALT 14 (7-52) U/L Alkaline Phosphatase 80 (34-104) U/L Troponin I High Sens 29.0 H (0-20) pg/ml Total Protein 8.1 (6.0-8.3) gm/dl Albumin 4.2 (3.4-5.0) gm/dl Globulin 3.9 (2.5-4.0) gm/dl Albumin/Globulin Ratio 1.1 (0.9-2) Lipase 35 (11-82) U/L Administered Medications Amiodarone HCl (Amiodarone 200 Mg Tab) 200 mg PO QPM LALO Stop: 12/22/22 20:59 Last Admin: 11/22/22 20:25 Dose: 200 mg Documented By: MG Apixaban (Apixaban 2.5 Mg Tab) 2.5 mg PO BID LALO Stop: 12/22/22 20:59 Last Admin: 11/22/22 20:25 Dose: 2.5 mg Documented By: MG Clopidogrel Bisulfate (Clopidogrel Bisulfate 75 Mg Tab) 75 mg PO DAILY LALO Stop: 12/22/22 15:01 Last Admin: 11/22/22 17:54 Dose: 75 mg Documented By: ESTER Insulin Aspart (Insulin Aspart Per Unit) 0 units SC ACHS LALO Stop: 12/22/22 11:29 Last Admin: 11/23/22 08:10 Dose: 3 units Documented By: YOUNG Co-signed By: [id number] Admin: 11/22/22 21:34 Dose: Not Given Documented By: MG Co-signed By: HEATHS Admin: 11/22/22 17:50 Dose: 3 units Documented By: ESTER Co-signed By: CAIO Admin: 11/22/22 13:18 Dose: Not Given Documented By: NMS Levothyroxine Sodium (Levothyroxine Sodium 75 Mcg Tablet) 75 mcg PO DAILYBB LALO Stop: 12/23/22 06:29 Last Admin: 11/23/22 05:01 Dose: 75 mcg Documented By: MG Memantine (Memantine Hcl 10 Mg Tab) 10 mg PO QPM LALO Stop: 12/22/22 20:59 Last Admin: 11/22/22 20:25 Dose: 10 mg Documented By: MG Rosuvastatin Calcium (Rosuvastatin Calcium 10 Mg Tab) 10 mg PO DAILY LALO Stop: 12/22/22 15:01 Last Admin: 11/22/22 16:10 Dose: 10 mg Documented By: ESTER Discontinued Medications Losartan Potassium (Losartan Potassium 25 Mg Tab) 25 mg PO NOW ONE Stop: 11/22/22 11:05 Last Admin: 11/22/22 12:22 Dose: 25 mg Documented By: CHADWICK Nitroglycerin (Nitroglycerin 2% Ointment 30gm Tube) 0.5 inch EXT NOW STA Stop: 11/22/22 08:51 Last Admin: 11/22/22 09:11 Dose: 0.5 inch Documented By: CHADWICK Discharge Plan Visit Data Chief Complaint: Chest Pain ED Provider: Chai Segura Discharge Problem: Chest pain, Hx of CABG, CAD (coronary artery disease), HTN (hypertension), Diabetic foot ulcers Patient Disposition: Admitted As Inpatient Discharge Instructions Interventions: ED Discharge Assessment Last Done: 11/22/22 14:22
[2022-11-22 09:57] LABS: Albumin Globulin Ratio 1.1 (0.9-2); Albumin Level 4.2 gm/dl (3.4-5.0); BUN Creatinine Ratio 24.4 (10-20); Bilirubin,Total 0.7 mg/dl (0.2-1.0); Calcium 9.6 mg/dl (8.5-10.1); Creatinine Clr Calc Pharmacy 30.6 ml/min; Est GFR (African American) 45.3 ml/min; Est GFR (Non-African American) 39.1 ml/min; Globulin 3.9 gm/dl (2.5-4.0); Potassium 4.4 mmol/L (3.5-5.1); Total Protein 8.1 gm/dl (6.0-8.3)
--- NOTE | 2022-11-22 10:21 | Electrocardiogram Report ---
Test Reason : Blood Pressure : / mmHG Vent. Rate : 092 BPM Atrial Rate : 092 BPM P-R Int : 202 ms QRS Dur : 090 ms QT Int : 390 ms P-R-T Axes : 000 049 -78 degrees QTc Int : 482 ms Poor data quality, interpretation may be adversely affected Normal sinus rhythm Incomplete right bundle branch block Prolonged QT Abnormal ECG When compared with ECG of 11-MAY-2018 10:32, Premature atrial complexes are no longer Present T wave inversion now evident in Inferior leads Confirmed by Josh Christian ([id number]) on 11/22/2022 10:20:57 AM Referred By: ED Confirmed By:Josh Christian
--- NOTE | 2022-11-22 10:29 | History & Physical Report ---
Date of Service November 22, 2022 Assessment & Plan (1) Chest pain: Plan: -Admit to med/tele -At this time the patient is currently afebrile, hemodynamically stable, and stable on RA -Patient experienced intermitted chest heaviness, SOB, and nausea starting at midnight today, patient is currently asymptomatic -Patient noted to have an initial high sensitivity trop of 29 with T-wave inversions noted in the inferior leads -Patient has a previous history of CABG x 3 in 1994 but no coronary artery stenting -As he is asymptomatic at this time will continue to monitor on tele, will repeat another high sensitivity trop STAT and monitor q6h overnight -Will obtain TTE for further assessment, if any concerning findings will consult cardiology -AM CBC and CMP -BL SCDs and home Eliquis and plavix for DVT PPX (2) Diabetic foot ulcers: Plan: -Stable -Will consult wound care nurse -Heel precautions ordered (3) DM II (diabetes mellitus, type II), controlled: Plan: -Hold metformin -Will monitor BSG ACHS, goal is 110-160 -Will start with lantus 5 units BID, correction factor of 50 and carb ratio of 15 -Adjust regimen as needed (4) CAD (coronary artery disease): Plan: -Continue crestor and niacin -Patient is intolerant to high intensity statin therapy (5) CKD (chronic kidney disease), stage III: Plan: -Stable (6) Peripheral arterial disease: Plan: -Stable -Continue plavix (7) HTN (hypertension): Plan: -Patient initially noted to be hypertensive with systolic in the 190's this am, did not take his AM Losartan -S/P 0.5 inches of nitro paste -Will give his am dose of losartan now and remove nitro paste after he takes the losartan, communication order placed (8) Atrial flutter: Plan: -Stable -Continue amiodarone and eliquis (9) Dyslipidemia: Plan: -Continue low dose crestor and niacin (10) Dementia: Plan: -Continue Namenda Plan The patient was discussed with Dr. Gallardo at the time of the exam History of Present Illness Chief Complaint: Chest pain Primary Care Provider: Munir Andino, III, ABDIRIZAK Dallin is an 87 year old male with a PMH significant for CAD S/P CABG x 3 in 1994, atrial flutter S/P cardioversion x 3 on Eliquis, PAD S/P and right SFA angioplasty with Dr. Barbour (On plavix), hypertension, hyperlipidemia, dementia, hypothyroidism, DM II, and stage 3 CKD who presented to the [facility] ED on 11/22/22 with a chief complaint of chest pain. In the ED the patient was found to be afebrile, initially hypertensive at 190/102, and stable on RA. Labs were remarkable for a CBC with WBC WNL, stable Hgb at 12.1, stable platelets of 208, stable cr at 1.56 (this appears to be his baseline), stable electrolytes, LFTs WNL, initial high sensitivity trop of 29. Ches xray was read as "No acute process.". His initial ECG was showing NSR with ST and T-wave abnormalities in the inferior leads. Prior to admission the patient was given 0.5 inches of nitroglycerine paste. At the time of the exam the patient was sitting in bed in no acute distress with his and a family friend sitting bedside, history was obtained from all. The patient states that he began to develop SOB and nausea at approximately midnight this morning. He denies chest pain but also noted some chest heaviness with his SOB and nausea. His symptoms were intermittent, did not radiate, and was not relieved after taking a dose of tramadol. He states that at the time of the exam his symptoms have currently resolved. He states that this chest discomfort was different than the discomfort he experienced in 1994 when he underwent his CABG procedure. He denies recent fevers, chills, cough, vomiting, abdominal pain, diarrhea, dysuria, hematuria, and recent falls. He has been sleeping in a recliner recently, when asked why he states it is because of his chronic right hip pain. He has noted some increased SOB with exertion over the past 1-2 months. He is able to ambulate with a cane at this time. He has chronic wounds on the right heel and great toe which have been stable, he is followed by the wound care clinic weekly for these wounds. He follows with Dr. Nugent of [facility] cardiology, per his last clinic note, the patient wishes to continue on amiodarone at this time for rate control. He has been unable to tolerate high intensity statin therapy in the past and is only on 10 mg of crestor daily at this time. The patient has been off of beta steph therapy due to previous episodes of bradycardia. We discussed code status, his states that they have living moore and the Patient confirmed that he is a DNR/DNI. Please refer to Dr. Gallardo's attestation for any changes to the treatment plan Allergies Allergy/AdvReac Type Severity Reaction Status Date / Time Penicillins Allergy Unknown GENERALIZED Verified 11/17/22 13:43 AND FACIAL SWELLING shellfish derived Allergy Unknown GENERALIZED Verified 11/17/22 13:43 AND FACIAL SWELLING Sulfa (Sulfonamide Allergy Unknown GENERALIZED Verified 11/17/22 13:43 Antibiotics) AND FACIAL SWELLING Home Medications Medication Instructions Recorded Confirmed Type lancets (OneTouch UltraSoft #50 ea 04/20/19 11/17/22 History Lancets) blood sugar diagnostic (OneTouch #10 ea 07/01/19 11/17/22 History Ultra Blue Test Strip) cholecalciferol (vitamin D3) 50 2,000 units PO QAM 07/16/19 11/22/22 History mcg (2,000 unit) capsule clopidogrel 75 mg tablet 75 mg PO DAILY #30 tabs 10/05/19 11/22/22 Rx amiodarone 200 mg tablet (Pacerone) 200 mg PO QPM #90 tabs 11/09/21 11/22/22 Rx niacin 500 mg tablet 500 mg PO DAILY 12/24/21 11/22/22 History losartan 25 mg tablet 25 mg PO DAILY #90 tabs 06/22/22 11/22/22 Rx apixaban 2.5 mg tablet 2.5 mg PO BID #180 tabs 07/05/22 11/22/22 Rx rosuvastatin 10 mg tablet 10 mg PO DAILY #90 tabs 08/20/22 11/22/22 Rx memantine 10 mg tablet (Namenda) 10 mg PO QPM 7 days #30 tabs 09/28/22 11/22/22 Rx doxycycline hyclate 100 mg tablet 100 mg PO bid #28 tabs 10/22/22 11/22/22 Rx metformin 1,000 mg tablet,extended 1,000 mg PO DAILY #30 tabs 11/01/22 11/22/22 Rx release 24hr collagenase clostridium histo. 250 1 applic topical DAILY 14 days #30 11/11/22 11/22/22 Rx unit/gram topical ointment (Santyl) grams levothyroxine 75 mcg tablet 75 mcg PO DAILY #30 tabs 11/11/22 11/22/22 Rx 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 Osteomyelitis PAD (peripheral artery disease) Sepsis Surgical History History of appendectomy History of cardiac cath History of cardioversion History of colonoscopy History of fracture History of hernia surgery History of hip surgery History of incision and drainage History of neck surgery History of repair of left rotator cuff History of tonsillectomy History of total right hip arthroplasty History of vascular surgery Hx of CABG (~1994) S/P cardiac cath S/P closed reduction of dislocated total hip prosthesis Family History Mother Alzheimer disease Father Arthritis Denies family history of Ovarian cancer Prostate cancer Myocardial infarction Breast cancer Colorectal cancer Social History Smoking Status: Never smoker Second Hand Exposure: No; Hx Alcohol Use: No Hx Substance Use: No Preferred Language: Moldovan Communication Ability: Effective Visual Impairment: No Limitations Hearing Ability: Normal Chest Painting And Sealing Supervisor Required: No Beliefs That Will Affect Care: None marital status: Current Living Situation: Spouse 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 All systems have been reviewed and are otherwise negative. Physical Exam Physical Exam: Physical Exam: General: In no acute distress, stated age, well-nourished, good hygiene HEENT: Normocephalic, atraumatic, no scleral icterus, pupils around round, symmetrical, and reactive to light, moist mucus membranes, trachea midline, no thyromegaly Chest/Pulm: No respiratory distress, symmetrical chest expansion, clear breath sounds throughout Cardiac: RRR, 4/6 systolic murmur noted Abdomen: Negative for ascites and bruising, normoactive bowel sounds, soft, non-tender to palpation throughout Musculoskeletal: Patient with chronic right heel and right great toe wounds are currently stable and without signs of drainage Extremities: Radial, dorsalis pedis, and posterior tibial pulses are intact and symmetrical, 2+ pitting edema noted in the BL LE's Skin: As described above Neuro: Alert and oriented to person, place, month, year, and president, no focal defects, CN II-XII tested and intact, no tremors noted Psych: No acute distress, calm and cooperative during the exam Results & Data Results & Data ([facility]) Vital Signs (Past 12 Hours) Vital Signs Temp Pulse Resp BP Pulse Ox O2 Del Method 11/22/22 08:40 98 Room Air 11/22/22 08:35 36.6 C 92 H 13 190/102 H 98 Room Air Laboratory Results Abnormal lab results 11/22/22 11/22/22 Range/Units 08:45 08:45 RBC 4.31 L (4.70-6.10) M/uL Hgb 12.1 L (14.0-18.0) g/dl Hct 38.2 L (42.0-52.0) % MCHC 31.7 L (32.0-36.0) g/dL RDW Std Deviation 55.8 H (36.4-46.3) fL RDW Coeff of Cyndi 17.4 H (11.5-14.5) % Neut # (Auto) 7.92 H (1.40-6.50) K/uL BUN 38 H (6-23) mg/dl Creatinine 1.56 H (0.6-1.4) mg/dl BUN/Creatinine Ratio 24.4 H (10-20) Glucose 142 H (70-99(Fasting)) mg/dl Troponin I High Sens 29.0 H (0-20) pg/ml Diagnostic Findings Chest X-Ray 11/22/22 08:40 XR chest 1V portable HISTORY: 87 years-old Male Chest pain, nonspecific acute chest pain COMPARISON: 02/19/2019 TECHNIQUE: AP view of the chest FINDINGS: Cardiac silhouette is enlarged. Prior median sternotomy and CABG. Atherosclerosis of the aorta. No pneumothorax, pleural effusion, airspace consolidation or pulmonary edema. Bones of the chest appear grossly intact. IMPRESSION: No acute process. ACT 112: Negative or not required by law. The above report was generated using voice recognition software. It may contain grammatical, syntax or spelling errors. Electronically signed by: Sebastián Leonard M.D. 11/22/2022 9:26 AM ECG Additional Comments: Poor data quality, interpretation may be adversely affected Normal sinus rhythm ST & T wave abnormality, consider inferior ischemia Prolonged QT Abnormal ECG When compared with ECG of 11-MAY-2018 10:32, Premature atrial complexes are no longer Present Non-specific change in ST segment in Inferior leads T wave inversion now evident in Inferior leads Nonspecific T wave abnormality now evident in Lateral leads Code Status & VTE Plan Code Status DNR/DNI VTE Prophylaxis Plan VTE Prophylaxis will be ordered: Yes Supervising Physician Co-Signing Physician Notes Patient seen and examined, chart reviewed, case discussed with Lenny Cha PA-C and I agree with the assessment and plan as above except as otherwise noted Labs and images reviewed Dallin Li is a 87-year-old male with a past medical history of CAD with CABG, DM 2, hypertension, atrial flutter, BPH with LUTS, tricuspid regurg, A-fib on apixaban/amiodarone who presents to the ER for evaluation of chest pain. At presentation patient's creatinine appears near recent baseline and admitting creatinine is 1.56. High-sensitivity troponin with mild elevation of 29. Admitting EKG shows normal sinus rhythm rate of 92? T wave changes without ST segment changes. At bedside visit he is nondistressed and has no chest pain. Is hungry. No diaphoresis, chest pressure, lightheadedness, dizziness. Lungs are clear, heart rate is regular. Reviewed plan with patient and family at bedside. Will trend troponins, follow echo. Agree with management as above. PG Care Time/CCT Total # of Minutes Spent Total Time Spent with Patient: Total time spent is greater than 50% in coordination of care (as documented) at patient's floor/unit and/or counseling patient: C[place] [address] INT INP/OBS CARE MIN Patient Type Established Medical Decision Making High Complexity Diagnoses Chest pain R07.9 Diabetic foot ulcers E11.621; L97.509 DM II (diabetes mellitus, type II), controlled E11.59 Diabetes mellitus complication detail: with other circulatory complications Diabetes mellitus complication status: with circulatory complication Diabetes mellitus care home insulin use: without finisher merchant products use CAD (coronary artery disease) I25.10 CKD (chronic kidney disease), stage III N18.3 Peripheral arterial disease I73.9 HTN (hypertension) I10 Atrial flutter I48.92 Dyslipidemia E78.5 Dementia F03.90 (1) DM II (diabetes mellitus, type II), controlled Diabetes mellitus complication detail: with other circulatory complications Diabetes mellitus complication status: with circulatory complication Diabetes mellitus care home insulin use: without finisher merchant products use Qualified Code(s): E11.59 - Type 2 diabetes mellitus with other circulatory complications
[2022-11-22] MEDS ORDERED: DEXTROSE 50% 50 ML SYRINGE IV PRN (10:31)
[2022-11-22] MEDS ORDERED: GLUCAGON FOR INJ 1 MG VIAL SQ PRN (10:31)
[2022-11-22] MEDS ORDERED: CARBOHYDRATES FOR HYPOGLYCEMIA PO PRN (10:31)
[2022-11-22] MEDS ORDERED: GLUCOSE 40% GEL 15 GM TUBE PO PRN (10:31)
[2022-11-22] MEDS ORDERED: GLUCOSE 10 TAB/TUBE PO PRN (10:31)
[2022-11-22] MEDS ORDERED: LOSARTAN POTASSIUM 25 MG TAB PO ONE (11:04)
[2022-11-22] MEDS: INSULIN ASPART PER UNIT SC SCH ×3 (13:18→21:34)
--- NOTE | 2022-11-22 13:36 | XCELERA ---
[id number]
[2022-11-22] MEDS ORDERED: ACETAMINOPHEN 325 MG TAB PO PRN (15:02)
[2022-11-22] MEDS: ROSUVASTATIN CALCIUM 10 MG TAB PO SCH (16:10)
[2022-11-22] MEDS: CLOPIDOGREL BISULFATE 75 MG TAB PO SCH (17:54)
[2022-11-22] MEDS: AMIODARONE 200 MG TAB PO SCH (20:25)
[2022-11-22] MEDS: MEMANTINE HCL 10 MG TAB PO SCH (20:25)
[2022-11-22] MEDS: APIXABAN 2.5 MG TAB PO SCH (20:25)
[2022-11-22] MEDS ORDERED: LANTUS PER UNIT CHARGE SQ SCH (21:00)
[2022-11-23] MEDS: LEVOTHYROXINE SODIUM 75 MCG TABLET PO SCH (05:01)
[2022-11-23 06:58] LABS: Hematocrit (blood only) 35.5 % (42.0-52.0); Hemoglobin 11.7 g/dl (14.0-18.0); Mean Corpuscular Hemoglobin 28.2 pg (25.0-34.0); Mean Corpuscular Volume 85.5 fL (80.0-100.0); Mean Platelet Volume 10.2 fL (9.4-12.4); Platelet Count 201 K/uL (130-400); RDW Coefficient of Variation 17.4 % (11.5-14.5); RDW Standard Deviation 53.4 fL (36.4-46.3); Red Blood Count 4.15 M/uL (4.70-6.10); White Blood Count 9.21 K/ul (4.8-10.8)
[2022-11-23] MEDS: INSULIN ASPART PER UNIT SC SCH ×4 (08:10→19:56)
--- NOTE | 2022-11-23 09:57 | Cardiology Consultation ---
Date of Consultation November 23, 2022 Assessment & Plan (1) Non-ST elevation (NSTEMI) myocardial infarction: (2) Chest pressure: (3) CAD (coronary artery disease): (4) Hx of CABG: (5) Peripheral arterial disease: (6) Atrial flutter: (7) HTN (hypertension): (8) Dyslipidemia: (9) Anticoagulant long-term use: Plan Mr. Li is an 87 year old male with a history of CAD s/p CABG x 3 Vessels (DIAZ to LAD, SVG to LCx, SVG to PDA, 1994), Paroxysmal Atrial Flutter s/p Cardioversion, Dyslipidemia, Type 2 Diabetes Mellitus, PAD s/p Right SFA Angioplasty, Hypertension, CKD, Aortic Valve Sclerosis, Tricuspid Regurgitation, Anemia, Hypothyroidism, and Dementia whom we are seeing in consultation regarding an NSTEMI/Subendocardial Myocardial Infarction. Patient presented to [facility] ER on 11/22/22 complaining of Chest Pressure reminiscent of his prior Angina Pectoris and an Abnormal EKG showing possible inferior ischemia. Patient was in his usual state of health but on Tuesday or Tuesday he noticed intermittent chest pressure that came on while at a state of rest and he knew there was "something wrong", then on Tuesday evening he developed persistent chest pressure that lasted all night and did not resolve until after his arrival at the ER on 11/22/22. He denies any radiation of his chest pressure and he denies any associated symptoms -- specifically denying any associated nausea, vomiting, dyspnea, or diaphoresis. This was reminiscent of his prior angina pectoris. In the ER the patient was found to be initially hypertensive at 190/102, and O2 saturation was stable on room air. Labs were remarkable for a CBC with normal WBC count, stable normocytic anemia with a Hgb of 12.1 g/dL, stable platelets of 208,000, stable Cr at 1.56 (this appears to be his baseline), stable electrolytes, LFTs are within normal limits, and his initial high sensitivity Troponin I was slightly elevated at 29.0 pg/mL and has subsequently trended up to 66.6 pg/mL as of today. CXR showed "No acute processes." His initial EKG showed NSR with ST and T-wave abnormalities in the inferior leads, prolonged QT interval at 482 msec. In the ER the patient had 1/2 inch of nitroglycerin paste applied. Patient has been completely asymptomatic since then and remains asymptomatic when I saw him this morning. Patient specifically denies any chest pain, heaviness, tightness, pressure, or discomfort. He denies any neck, jaw, back, or arm pain. He denies any shortness of breath, orthopnea, or PND. He denies any palpitations, syncope, or near syncope. He has not had any atrial flutter recently to the best of his knowledge. Patient has remained in a normal sinus rhythm throughout this hospitalization according to cardiac monitoring. Recommend the followin. Cardiac Catheterization/Coronary Angiography ([place] vessels and bypass grafts). 2. Continue Amiodarone 200 mg daily. 3. Continue Eliquis 2.5 mg b.i.d.. 4. Continue Plavix 75 mg daily. 5. Continue Losartan 25 mg daily. 6. Hold Metformin. 7. Increase Crestor to 20 mg daily due to suspected progression of disease. 8. Consider low dose Lopressor although beta blockers have historically caused bradycardia. We will continue to follow this patient along while hospitalized and he will follow-up with Dr. Nugent following discharge. ADDENDUM: I have seen and examined this patient in conjunction with Gold Ferrari PA-C. I have reviewed all available inpatient and outpatient records. I have formulated a plan of care and discussed in detail with Mr. Ferrari. I agree with the assessment and plan as he has documented except as noted below. I spent an additional 40 minutes (total time spent greater than 75 minutes) on my own with the patient explaining cardiac catheterization, risks, benefits, and alternatives. This included the option of medical management only versus catheterization plus or minus PCI. This also included realistic understanding that PCI in this setting would be for symptom relief and that medical management could also offer similar symptomatic relief. However, the diagnostic portion of the catheterization would give additional benefit to understanding the etiology of his elevated troponin and chest pain which would therefore allow appropriate therapy. We also discussed increased risk for contrast-induced nephropathy with his poor baseline renal function (stage IIIb chronic renal insufficiency). All of this was discussed in conjunction with his . Ultimately, they agreed that the benefits of catheterization outweighed the risks and that they desired a full understanding of his coronary status in addition to the potential for symptom relief beyond that offered by medical therapy alone. Therefore, we will proceed with catheterization tomorrow. His Eliquis will need to be held. We will limit IV contrast. He will be started on normal saline IV fluid precatheterization with additional IV fluid provided post catheterization to limit the likelihood of contrast-induced nephropathy. Further recommendations pending results of coronary angiography. History of Present Illness Reason for Consultation: -- Chest Pressure, Abnormal EKG, Elevated high sensitivity Troponin I level. -- CAD s/p CABG x 3 Vessels 1994. Requesting Physician: Carlton Mosquera MD Attending Physician: Robbie Jiang MD History of Present Illness Mr. Li is an 87 year old male with a history of CAD s/p CABG x 3 Vessels (DIAZ to LAD, SVG to LCx, SVG to PDA, 1994), Paroxysmal Atrial Flutter s/p Cardioversion, Dyslipidemia, Type 2 Diabetes Mellitus, PAD s/p Right SFA Angioplasty, Hypertension, CKD, Aortic Valve Sclerosis, Tricuspid Regurgitation, Anemia, Hypothyroidism, and Dementia whom we are seeing in consultation regarding Chest Pressure with an Abnormal EKG showing possible inferior ischemia. Patient was in his usual state of health but on Tuesday or Tuesday he noticed intermittent chest pressure and knew there was "something wrong", then on Tuesday evening he developed persistent chest pressure that lasted all night and did not resolve until after his arrival at the ER on 11/22/22. He denies any radiation of his chest pressure and he denies any associated symptoms -- specifically denying any associated nausea, vomiting, dyspnea, or diaphoresis. This was reminiscent of his prior angina pectoris. In the ER the patient was found to be initially hypertensive at 190/102, and O2 saturation was stable on room air. Labs were remarkable for a CBC with normal WBC count, stable normocytic anemia with a Hgb of 12.1 g/dL, stable platelets of 208,000, stable Cr at 1.56 (this appears to be his baseline), stable elect rolytes, LFTs are within normal limits, and his initial high sensitivity Troponin I was slightly elevated at 29.0 pg/mL and has subsequently trended up to 66.6 pg/mL as of today. CXR showed "No acute processes." His initial EKG showed NSR with ST and T-wave abnormalities in the inferior leads, prolonged QT interval at 482 msec. In the ER the patient had 1/2 inch of nitroglycerin paste applied. Patient has been completely asymptomatic since then and remains asymptomatic when I saw him this morning. Patient specifically denies any chest pain, heaviness, tightness, pressure, or discomfort. He denies any neck, jaw, back, or arm pain. He denies any shortness of breath, orthopnea, or PND. He denies any palpitations, syncope, or near syncope. He has not had any atrial flutter recently to the best of his knowledge. Patient has remained in a normal sinus rhythm throughout this hospitalization on teletypesetter monitor. ECHOCARDIOGRAM 11/22/22: -- LV is hyperdynamic. -- LVEF > 70%, no RWMA. -- RV is hyperdynamic. -- Moderate aortic valve sclerosis without stenosis. -- Mild PI. -- Moderate to severe MAC with mild MR. -- Moderate TR. -- RVSP is elevated at 30 to 40 mmHg. -- IVC is moderately dilated. -- Compared to 01/01/21 study; No significant change. He has had the following studies/procedures: 1. DC Cardioversion 09/06/11 2. Adenosine Cardiolite SPECT study 08/25/11: negative for ischemia. 3. Echocardiogram (06/28/11) demonstrated normal LV size with hyperdynamic systolic function; EF 75%; no wall motion abnormalities; no LVH and no significant valvular abnormalities. 4. Cardiac Cath (09/05/95): LAD: severely diffusely diseased proximal 1/3 of LAD with 70-90% stenoses.; Cx: large vessel, 95% prox stenosis, 90% prox in large OM1; RCA was large and dominant. prox 80% stenosis. mid 70% stenosis. distal 70% stenosis. 5. CABG x 3 (09/06/95 at [place]): DIAZ to LAD; SVG to Cx/OM; SVG to PDA 6. LE Arterial Duplex 08/20/2014: Hemodynamically significant stenosis of right distal SFA (50-99%). Non-obstructive disease of left LE. Left CRYSTAL 0.86. Right CRYSTAL 0.91. 7. Peripheral angiogram and angioplasty 09/30/14: Mechanical atherectomy and aspiration thrombectomy of right SFA with balloon angioplasty. Diagnostic images reported: Severe stenosis of mid SFA. Left SFA calcified without significant stenosis. Proximal PT severe stenosis. Occluded mid peroneal artery. 8. Holter 10/27/2015: Atrial flutter average heart rate 101 bpm. Minimum 58. Maximum 139. No significant pauses. Occasional PVCs. No ventricular arrhythmia. 9. Echo 05/29/2016: Small LV size with hyperdynamic LV systolic function. Normal wall motion. Atrial flutter with RVR. Sclerotic aortic valve without stenosis. RVSP less than 36. 10. Electrical cardioversion 06/25/2016: Atrial flutter converted to sinus rhythm. 11. PFTs 07/29/2016: Dopk-id-glgmpydk restrictive changes. Mild reduction in DLCO. 12. Echo 11/18/2017: Normal LV size, wall motion, systolic function. EF 60- 65%. Mild LVH. Mild right atrial dilation. Sclerotic aortic valve. Mild MR. Moderate TR. RVSP 31. Ascending aorta 3.9 cm. Atrial flutter. 13. Electrical cardioversion 12/06/2017: Successfully converted from atrial flutter to sinus with 100 joules 14. Right lower extremity angiography 10/05/2019 Dr. Barbour: Right lower extremity 60-70% diffuse distal SFA/popliteal disease and 2 vessel distal runoff with anterior tibial artery. Underwent mechanical atherectomy and angioplasty with drug-eluting balloon to distal SFA/popliteal. 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 15. Echo 01/01/2021: Normal LV size. EF > 70%. Normal wall motion. Mild LVH. Mild biatrial dilation. Sclerotic aortic valve. Mild MR. RVSP 40. Sinus rhythm. 16. Holter 07/22/2021: Atrial flutter average heart rate 90, ranging 56-130. Occasional PVCs. Family History: -- Family history of CAD. Social History: -- He denies tobacco abuse. -- Lives with his . -- No children. 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 Allergies Allergy/AdvReac Type Severity Reaction Status Date / Time Penicillins Allergy Unknown GENERALIZED Verified 11/17/22 13:43 AND FACIAL SWELLING shellfish derived Allergy Unknown GENERALIZED Verified 11/17/22 13:43 AND FACIAL SWELLING Sulfa (Sulfonamide Allergy Unknown GENERALIZED Verified 11/17/22 13:43 Antibiotics) AND FACIAL SWELLING Home Medications Medication Instructions Recorded Confirmed Type lancets ([employer]Touch UltraSoft #50 ea 04/20/19 11/17/22 History Lancets) blood sugar diagnostic ([employer]Touch #10 ea 07/01/19 11/17/22 History Ultra Blue Test Strip) cholecalciferol (vitamin D3) 50 2,000 units PO QAM 07/16/19 11/22/22 History mcg (2,000 unit) capsule clopidogrel 75 mg tablet 75 mg PO DAILY #30 tabs 10/05/19 11/22/22 Rx amiodarone 200 mg tablet (Pacerone) 200 mg PO QPM #90 tabs 11/09/21 11/22/22 Rx niacin 500 mg tablet 500 mg PO DAILY 12/24/21 11/22/22 History losartan 25 mg tablet 25 mg PO DAILY #90 tabs 06/22/22 11/22/22 Rx apixaban 2.5 mg tablet 2.5 mg PO BID #180 tabs 07/05/22 11/22/22 Rx rosuvastatin 10 mg tablet 10 mg PO DAILY #90 tabs 08/20/22 11/22/22 Rx memantine 10 mg tablet (Namenda) 10 mg PO QPM 7 days #30 tabs 09/28/22 11/22/22 Rx doxycycline hyclate 100 mg tablet 100 mg PO bid #28 tabs 10/22/22 11/22/22 Rx metformin 1,000 mg tablet,extended 1,000 mg PO DAILY #30 tabs 11/01/22 11/22/22 Rx release 24hr collagenase clostridium histo. 250 1 applic topical DAILY 14 days #30 11/11/22 11/22/22 Rx unit/gram topical ointment (Santyl) grams levothyroxine 75 mcg tablet 75 mcg PO DAILY #30 tabs 11/11/22 11/22/22 Rx Patient History Medical History Anemia Atrial flutter CAD (coronary artery disease) s/p CABG x 3 (1994) CKD (chronic kidney disease), stage III Diabetic foot ulcer Difficult airway for intubation Right ELLEN: 03/24/17 - Elective Glidescope #4 due to limited ROM, ETT #7.5, HiLo Straight, Grade 2 View with Large Epiglottis (no specific indication why SAB not used) Dyslipidemia Former smoker HTN (hypertension) Hypothyroidism 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, reason for upcoming procedure On amiodarone therapy Osteomyelitis right heel PAD (peripheral artery disease) s/p right SFA angioplasty Sepsis Surgical History History of appendectomy History of cardiac cath 1994 -- subsequent CABG x3 History of cardioversion x3 - most recent at [facility] 2018 History of colonoscopy History of fracture COLLAR BONE/SURGERY FOR History of hernia surgery RIGHT INGUINAL History of hip surgery X2 FOR DISLOCATION RIGHT (POST RIGHT ELLEN) History of incision and drainage Right heel I&D, antibiotic beads: 04/06/19: SAB x 1 at L3/L4 at [facility] History of neck surgery C4-5 "CADAVER BONE" History of repair of left rotator cuff History of tonsillectomy History of total right hip arthroplasty History of vascular surgery right heel vascular procedure (Dr. Barbour) Hx of CABG (~1994) CABG x 3 (1994) S/P cardiac cath S/P closed reduction of dislocated total hip prosthesis Family History Mother Alzheimer disease Father Arthritis Denies family history of Ovarian cancer Prostate cancer Myocardial infarction Breast cancer Colorectal cancer Social History Smoking Status: Never smoker Second Hand Exposure: No; Hx Alcohol Use: No Hx Substance Use: No Preferred Language: Belarusian Communication Ability: Effective Visual Impairment: No Limitations Hearing Ability: Normal Website Optimization Strategist Required: No Beliefs That Will Affect Care: None marital status: Current Living Situation: Spouse 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 -- 10 point ROS was completed and is negative with the exception of what is mentioned in the HPI. Physical Exam Physical Exam: GENERAL: Patient in no acute distress. HEENT: Head is atraumatic, normocephalic. EOM's intact. Facies symmetric. No perioral cyanosis. NECK: No JVD. JVP is not elevated. Carotid upstrokes are + 2 bilaterally without obvious bruits. CHEST/LUNGS: Clear to auscultation throughout all lung olson. No wheezes, rales, or crackles. CVS: S1 and S2 are regular with a grade 2/6 systolic murmur the left sternal border. No obvious diastolic murmurs. No gallops or rubs. PMI is nondisplaced. No lifts, heaves, or thrills. No abdominal aortic or renal bruits. ABDOMINAL EXAM: Bowel sounds are present. No masses, organomegaly, or t enderness. EXTREMITIES: No clubbing or cyanosis. No edema. Intact radial pulses bilaterally. NEUROLOGIC EXAM: Patient is awake, alert, and interactive. Pleasant and cooperative. Answers questions appropriately. Speech is clear. Film Archivist: -- NSR in the 80's and 90's. Echocardiogram as described above. Results & Data ([facility]) Vital Signs (Past 12 Hours) Vital Signs Temp Pulse Pulse Resp BP BP Pulse Ox 11/23/22 07:43 36.8 C 96 H 18 133/73 94 11/23/22 03:04 36.6 C 94 H 18 128/79 98 11/22/22 23:48 36.5 C 93 H 20 166/82 H 98 11/22/22 22:00 92 H O2 Del Method 11/23/22 07:43 Room Air 11/23/22 03:04 Room Air 11/22/22 23:48 Room Air 11/22/22 22:00 Laboratory Results Laboratory Results - last 24 hr 11/22/22 11/22/22 11/22/22 11:41 12:12 16:48 WBC RBC Hgb Hct MCV MCH MCHC RDW Std Deviation RDW Coeff of Cyndi Plt Count MPV Sodium Potassium Chloride Carbon Dioxide Anion Gap BUN Creatinine Est Cr Clr Drug Dosing Est GFR ( Amer) Est GFR (Non-Af Amer) BUN/Creatinine Ratio Glucose POC Glucose 119 H 126 H Calcium Total Bilirubin AST ALT Alkaline Phosphatase Troponin I High Sens 27.5 H Total Protein Albumin Globulin Albumin/Globulin Ratio SARS-CoV-2, RNA, NAAT 11/22/22 11/22/22 11/22/22 18:01 19:51 Unknown WBC RBC Hgb Hct MCV MCH MCHC RDW Std Deviation RDW Coeff of Cyndi Plt Count MPV Sodium Potassium Chloride Carbon Dioxide Anion Gap BUN Creatinine Est Cr Clr Drug Dosing Est GFR ( Amer) Est GFR (Non-Af Amer) BUN/Creatinine Ratio Glucose POC Glucose 87 Calcium Total Bilirubin AST ALT Alkaline Phosphatase Troponin I High Sens 31.0 H Total Protein Albumin Globulin Albumin/Globulin Ratio SARS-CoV-2, RNA, NAAT NEGATIVE 11/23/22 11/23/22 11/23/22 00:13 06:47 06:47 WBC 9.21 RBC 4.15 L Hgb 11.7 L Hct 35.5 L MCV 85.5 MCH 28.2 MCHC 33.0 RDW Std Deviation 53.4 H RDW Coeff of Cyndi 17.4 H Plt Count 201 MPV 10.2 Sodium Potassium Chloride Carbon Dioxide Anion Gap BUN Creatinine Est Cr Clr Drug Dosing Est GFR ( Amer) Est GFR (Non-Af Amer) BUN/Creatinine Ratio Glucose POC Glucose Calcium Total Bilirubin AST ALT Alkaline Phosphatase Troponin I High Sens 39.1 H 66.6 H* D Total Protein Albumin Globulin Albumin/Globulin Ratio SARS-CoV-2, RNA, NAAT 11/23/22 11/23/22 06:47 07:28 WBC RBC Hgb Hct MCV MCH MCHC RDW Std Deviation RDW Coeff of Cyndi Plt Count MPV Sodium Pending Potassium Pending Chloride Pending Carbon Dioxide Pending Anion Gap Pending BUN Pending Creatinine Pending Est Cr Clr Drug Dosing Pending Est GFR ( Amer) Pending Est GFR (Non-Af Amer) Pending BUN/Creatinine Ratio Pending Glucose Pending POC Glucose 95 Calcium Pending Total Bilirubin Pending AST Pending ALT Pending Alkaline Phosphatase Pending Troponin I High Sens Total Protein Pending Albumin Pending Globulin Pending Albumin/Globulin Ratio Pending SARS-CoV-2, RNA, NAAT Diagnostic Findings CXR 11/22/22: Cardiac silhouette is enlarged. Prior median sternotomy and CABG. Atherosclerosis of the aorta. No pneumothorax, pleural effusion, airspace consolidation or pulmonary edema. Bones of the chest appear grossly intact. IMPRESSION: -- No acute process. Medications Administered Medications lancets ([employer] UltraSoft Lancets) #50 ea 04/20/19 [History Confirmed 11/17/22] blood sugar diagnostic (OneTouch Ultra Blue Test Strip) #10 ea 07/01/19 [History Confirmed 11/17/22] cholecalciferol (vitamin D3) 50 mcg (2,000 unit) capsule 2,000 units PO QAM 07/16/19 [History Confirmed 11/22/22] clopidogrel 75 mg tablet 75 mg PO DAILY #30 tabs 10/05/19 [Rx Confirmed 11/22/22] amiodarone 200 mg tablet (Pacerone) 200 mg PO QPM #90 tabs 11/09/21 [Rx Confirmed 11/22/22] niacin 500 mg tablet 500 mg PO DAILY 12/24/21 [History Confirmed 11/22/22] losartan 25 mg tablet 25 mg PO DAILY #90 tabs 06/22/22 [Rx Confirmed 11/22/22] apixaban 2.5 mg tablet 2.5 mg PO BID #180 tabs 07/05/22 [Rx Confirmed 11/22/22] rosuvastatin 10 mg tablet 10 mg PO DAILY #90 tabs 08/20/22 [Rx Confirmed 11/22/22] memantine 10 mg tablet (Namenda) 10 mg PO QPM 7 days #30 tabs 09/28/22 [Rx Confirmed 11/22/22] doxycycline hyclate 100 mg tablet 100 mg PO bid #28 tabs 10/22/22 [Rx Confirmed 11/22/22] metformin 1,000 mg tablet,extended release 24hr 1,000 mg PO DAILY #30 tabs 11/01/22 [Rx Confirmed 11/22/22] collagenase clostridium histo. 250 unit/gram topical ointment (Santyl) 1 applic topical DAILY 14 days #30 grams 11/11/22 [Rx Confirmed 11/22/22] levothyroxine 75 mcg tablet 75 mcg PO DAILY #30 tabs 11/11/22 [Rx Confirmed 11/22/22] Home Medications Acetaminophen (Acetaminophen 325 Mg Tab) 650 mg PO Q4H PRN PRN Reason: Pain (1,2,3) Or Fever Stop: 12/22/22 15:01 Amiodarone HCl (Amiodarone 200 Mg Tab) 200 mg PO QPM LALO Stop: 12/22/22 20:59 Last Admin: 11/22/22 20:25 Dose: 200 mg Apixaban (Apixaban 2.5 Mg Tab) 2.5 mg PO BID LALO Stop: 12/22/22 20:59 Last Admin: 11/22/22 20:25 Dose: 2.5 mg Clopidogrel Bisulfate (Clopidogrel Bisulfate 75 Mg Tab) 75 mg PO DAILY LALO Stop: 12/22/22 15:01 Last Admin: 11/22/22 17:54 Dose: 75 mg Dextrose (Dextrose 50% 50 Ml Syringe) 25 - 50 ml IV UD PRN; Protocol PRN Reason: Hypoglycemia Protocol Stop: 12/22/22 10:30 Glucagon (Glucagon For Inj 1 Mg Vial) 1 mg SQ UD PRN; Protocol PRN Reason: Hypoglycemia Protocol Stop: 12/22/22 10:30 Glucose (Glucose 40% Gel 15 Gm Tube) 15 - 30 gm PO UD PRN; Protocol PRN Reason: Hypoglycemia Protocol Stop: 12/22/22 10:30 Glucose (Glucose 10 Tab/Tube) 4 - 8 tab PO UD PRN; Protocol PRN Reason: Hypoglycemia Treatment Stop: 12/22/22 10:30 Insulin Aspart (Insulin Aspart Per Unit) 0 units SC ACHS LALO Stop: 12/22/22 11:29 Last Admin: 11/23/22 08:10 Dose: 3 units Levothyroxine Sodium (Levothyroxine Sodium 75 Mcg Tablet) 75 mcg PO DAILYBB LALO Stop: 12/23/22 06:29 Last Admin: 11/23/22 05:01 Dose: 75 mcg Losartan Potassium (Losartan Potassium 25 Mg Tab) 25 mg PO DAILY LALO Stop: 12/23/22 08:59 Memantine (Memantine Hcl 10 Mg Tab) 10 mg PO QPM LALO Stop: 12/22/22 20:59 Last Admin: 11/22/22 20:25 Dose: 10 mg Miscellaneous (Carbohydrates For Hypoglycemia ) 15 - 30 gm PO UD PRN PRN Reason: Hypoglycemia Protocol Stop: 12/22/22 10:30 Rosuvastatin Calcium (Rosuvastatin Calcium 10 Mg Tab) 10 mg PO DAILY LALO Stop: 12/22/22 15:01 Last Admin: 11/22/22 16:10 Dose: 10 mg PG Care Time/CCT Total # of Minutes Spent Total Time Spent with Patient: Total time spent is greater than 50% in coordination of care (as documented) at patient's floor/unit and/or counseling patient:42 [place] [address] INT INP/OBS CARE 3/75MIN Patient Type Established History Comprehensive Exam Comprehensive Medical Decision Making High Complexity Diagnoses Non-ST elevation (NSTEMI) myocardial infarction I21.4 Chest pressure R07.89 CAD (coronary artery disease) I25.10 Hx of CABG Z95.1 Peripheral arterial disease I73.9 Atrial flutter I48.92 HTN (hypertension) I10 Dyslipidemia E78.5 Anticoagulant long-term use Z79.01 Time Spent (min) 64
[2022-11-23] MEDS: CLOPIDOGREL BISULFATE 75 MG TAB PO SCH (10:44)
[2022-11-23] MEDS: LOSARTAN POTASSIUM 25 MG TAB PO SCH (10:44)
[2022-11-23] MEDS: APIXABAN 2.5 MG TAB PO SCH (10:44)
[2022-11-23] MEDS: ROSUVASTATIN CALCIUM 10 MG TAB PO SCH (10:44)
[2022-11-23 10:54] LABS: Albumin Globulin Ratio 1.1 (0.9-2); Albumin Level 3.9 gm/dl (3.4-5.0); BUN Creatinine Ratio 24.3 (10-20); Bilirubin,Total 1.1 mg/dl (0.2-1.0); Calcium 9.7 mg/dl (8.5-10.1); Creatinine Clr Calc Pharmacy 25.3 ml/min; Est GFR (African American) 35.9 ml/min; Globulin 3.5 gm/dl (2.5-4.0); Potassium 4.4 mmol/L (3.5-5.1); Total Protein 7.4 gm/dl (6.0-8.3)
--- NOTE | 2022-11-23 12:16 | Electrocardiogram Report ---
Test Reason : Blood Pressure : / mmHG Vent. Rate : 097 BPM Atrial Rate : 097 BPM P-R Int : 194 ms QRS Dur : 090 ms QT Int : 370 ms P-R-T Axes : 000 046 261 degrees QTc Int : 469 ms Normal sinus rhythm Prolonged QT Abnormal ECG When compared with ECG of 22-NOV-2022 08:43, No significant change was found Confirmed by Josh Christian ([id number]) on 11/23/2022 12:16:35 PM Referred By: REFERRED SELF Confirmed By:Josh Christian
[2022-11-23] MEDS ORDERED: SODIUM CHLORIDE 0.9% 1000ML 1,000 ML IV SCH (13:00)
--- NOTE | 2022-11-23 13:18 | Hospitalist Progress Note ---
Date of Service November 23, 2022 Assessment & Plan (1) Chest pain: Plan: He appears to have suffered a non-ST elevation [place]. Continue current medical management including Eliquis. Continue telemetry. Appreciate cardiology consultation. Anticipate left heart catheterization tomorrowNovember 24. Cardiac echo negative for regional wall motion abnormalities (2) Diabetic foot ulcers: Plan: Appreciate wound care consultation. Santyl ordered for the right great toe (3) DM II (diabetes mellitus, type II), controlled: Plan: ADA diet. Sliding scale coverage as needed. Continue current medical management. Metformin held on admission (4) CAD (coronary artery disease): Plan: Previous coronary artery bypass grafting in 1994. Appreciate cardiology consultation. Continue current medical management (5) CKD (chronic kidney disease), stage III: Plan: Monitor intake and output. Continue IV fluids. Serial labs (6) Peripheral arterial disease: Plan: The patient states he has had multiple peripheral interventions. Continue medical management (7) HTN (hypertension): Plan: Controlled with current medical management (8) Atrial flutter: Plan: Currently in normal sinus rhythm. Cardiology has continued Eliquis therapy (9) Dyslipidemia: Plan: Continue statin therapy (10) Dementia: Plan: Appears to be mild. Continue supportive care Plan To be determined. Left heart catheterization scheduled for tomorrNovember 24 Admission and Anticipated Discharge Date Admission Date: November 23, 2022 Subjective Currently pain-free. Cardiology entry noted. Left heart catheterization planned for tomorrNovember 24. Continue current medications. He was instructed to notify nursing immediately if he has any recurrent chest discomfort. Review of Systems Review of Systems: Constitutional-no fever or chills ENT-no blurred vision, no double vision, no epistaxis, no sore throat Respiratory-no cough, no wheezing, no shortness of breath Cardiac-no palpitations, no syncope. Chest discomfort has resolved GI-no nausea, vomiting, diarrhea, melena, hematochezia -no urinary retention, no urinary incontinence, no dysuria, no hematuria Musculoskeletal-no joint pain, no muscle tenderness Skin-no bruising, no rashes, no pruritus Neuro-no isolated weakness, no paresthesia, no weakness Psych-no depression, no anxiety Physical Exam Physical Exam: General-alert and oriented x3, no fevers, no chills HEENT-head atraumatic and normocephalic, pupils equal and reactive to light, extraocular muscles intact Neck-no lymphadenopathy or thyromegaly, trachea midline Chest-clear to auscultation percussion. No rales wheezing or rhonchi Cardiac-regular rate and rhythm, normal S1 and S2 Abdomen-normal bowel sounds, nontender, no hepatosplenomegaly Extremities-no cyanosis, clubbing, or edema Neuro-cranial nerves II through XII intact, motor and sensory function within normal limits, strength symmetrical, no focal deficits Psych-normal affect, normal mood Results & Data Results & Data ([facility]) Vital Signs (Past 12 Hours) Vital Signs Temp Pulse Resp BP BP Pulse Ox O2 Del Method 11/23/22 11:26 36.9 C 95 H 18 113/62 94 Room Air 11/23/22 07:43 36.8 C 96 H 18 133/73 94 Room Air 11/23/22 03:04 36.6 C 94 H 18 128/79 98 Room Air Laboratory Results 11/23/22 06:47 11/23/22 06:47 PG Care Time/CCT Total # of Minutes Spent Total Time Spent with Patient: Total time spent is greater than 50% in coordination of care (as documented) at patient's floor/unit and/or counseling patient: Coding Level of Care Code 66050 SUB INP/OBS CARE 3/50MIN Diagnoses Chest pain R07.9 Diabetic foot ulcers E11.621; L97.509 DM II (diabetes mellitus, type II), controlled E11.59 Diabetes mellitus ferry terminal agent insulin use: without prison use Diabetes mellitus complication status: with circulatory complication Diabetes mellitus complication detail: with other circulatory complications CAD (coronary artery disease) I25.10 CKD (chronic kidney disease), stage III N18.3 Peripheral arterial disease I73.9 HTN (hypertension) I10 Atrial flutter I48.92 Dyslipidemia E78.5 Dementia F03.90 (1) DM II (diabetes mellitus, type II), controlled Diabetes mellitus prison insulin use: without ferry terminal agent use Diabetes mellitus complication status: with circulatory complication Diabetes mellitus complication detail: with other circulatory complications Qualified Code(s): E11.59 - Type 2 diabetes mellitus with other circulatory complications
[2022-11-23] MEDS: COLLAGENASE OINT 30 GM TUBE EXT SCH (17:49)
[2022-11-23] MEDS: D5W AND NSS 1,000 ML IV SCH (18:49)
[2022-11-23] MEDS: MEMANTINE HCL 10 MG TAB PO SCH (20:16)
[2022-11-23] MEDS: AMIODARONE 200 MG TAB PO SCH (20:17)
[2022-11-24] MEDS: LEVOTHYROXINE SODIUM 75 MCG TABLET PO SCH (05:43)
[2022-11-24 07:04] LABS: Hematocrit (blood only) 37.6 % (42.0-52.0); Hemoglobin 12.2 g/dl (14.0-18.0); Mean Corpuscular Hemoglobin 28.4 pg (25.0-34.0); Mean Corpuscular Hgb Conc 32.4 g/dL (32.0-36.0); Mean Corpuscular Volume 87.4 fL (80.0-100.0); Mean Platelet Volume 10.1 fL (9.4-12.4); Platelet Count 205 K/uL (130-400); RDW Coefficient of Variation 17.6 % (11.5-14.5); RDW Standard Deviation 55.1 fL (36.4-46.3); White Blood Count 8.14 K/ul (4.8-10.8)
[2022-11-24 07:23] LABS: Albumin Globulin Ratio 1.2 (0.9-2); Albumin Level 4.2 gm/dl (3.4-5.0); BUN Creatinine Ratio 25.5 (10-20); Bilirubin,Total 0.8 mg/dl (0.2-1.0); Creatinine Clr Calc Pharmacy 24.9 ml/min; Est GFR (African American) 35.2 ml/min; Est GFR (Non-African American) 30.4 ml/min; Globulin 3.5 gm/dl (2.5-4.0); Potassium 4.7 mmol/L (3.5-5.1); Total Protein 7.7 gm/dl (6.0-8.3)
[2022-11-24] MEDS: D5W AND NSS 1,000 ML IV SCH (08:00)
[2022-11-24] MEDS: INSULIN ASPART PER UNIT SC SCH ×4 (08:41→20:30)
[2022-11-24] MEDS: LOSARTAN POTASSIUM 25 MG TAB PO SCH (08:42)
[2022-11-24] MEDS: ROSUVASTATIN CALCIUM 10 MG TAB PO SCH (08:42)
[2022-11-24] MEDS: COLLAGENASE OINT 30 GM TUBE EXT SCH (08:43)
[2022-11-24] MEDS: CLOPIDOGREL BISULFATE 75 MG TAB PO SCH (08:58)
[2022-11-24] MEDS: METOPROLOL TARTRATE 25 MG TAB PO SCH ×2 (10:03→21:03)
[2022-11-24] MEDS ORDERED: HEPARIN (PORCINE) 1000 UNIT/ML 10 ML (CATH LAB USE ONLY) ONE (10:09)
[2022-11-24] MEDS ORDERED: MIDAZOLAM HCL 1 MG/ML 2ML VIAL ONE (10:09)
[2022-11-24] MEDS ORDERED: niCARdipine HCL INJ 2.5 MG/ML 10 ML AMP ONE (10:09)
[2022-11-24] MEDS ORDERED: fentaNYL citrate 100 MCG/2 ML VIAL ONE (10:10)
[2022-11-24] MEDS ORDERED: NITROGLYCERIN/D5W 100MCG/ML 20ML SYR ONE (10:10)
[2022-11-24] MEDS ORDERED: LIDOCAINE 1% LOCAL 20 ML VIAL ONE (10:42)
[2022-11-24] MEDS ORDERED: hydrALAZINE HCL 20 MG/ML VIAL ONE (10:56)
[2022-11-24] MEDS ORDERED: METOPROLOL TARTRATE 1 MG/ML VIAL IV ONE (11:18)
[2022-11-24] MEDS ORDERED: MoRPHine SULFATE 2 MG/ML CARP IV STA (12:39)
--- NOTE | 2022-11-24 12:49 | Ultrasound Report ---
ABDOMINAL ULTRASOUND, RIGHT UPPER QUADRANT HISTORY: Acute right upper quadrant abdominal pain retro baljinder bleed. COMPARISON: None. FINDINGS: No free fluid or retroperitoneal hemorrhage is identified. No abnormality is seen. IMPRESSION: Unremarkable exam. ACT 112: Negative or not required by law. Electronically signed by: Sebastián Leonard M.D. 11/24/2022 12:48 PM
[2022-11-24] MEDS ORDERED: MoRPHine SULFATE 2 MG/ML CARP ONE (12:51)
--- NOTE | 2022-11-24 14:46 | Pre Anesthesia Assessment ---
Date of Service November 24, 2022 Pre Sedation Assessment Vital Signs Temp Pulse Pulse Resp BP BP BP 11/24/22 14:00 93 H 16 127/70 11/24/22 13:15 93 H 16 107/64 11/24/22 13:30 92 H 16 107/64 11/24/22 13:00 92 H 16 99/69 L 11/24/22 12:45 93 H 16 120/68 11/24/22 12:30 92 H 16 110/59 L 11/24/22 12:10 93 H 20 97/48 L 11/24/22 11:55 93 H 20 104/56 L 11/24/22 11:19 128 H 131/78 11/24/22 05:57 99 H 11/24/22 10:03 98 H 20 159/103 H 11/24/22 07:46 36.5 C 97 H 18 194/97 H 11/24/22 02:59 36.5 C 95 H 18 159/89 H 11/24/22 00:00 96 H 11/23/22 23:26 36.4 C L 83 18 165/98 H 11/23/22 19:22 36.5 C 97 H 20 137/84 11/23/22 15:00 36.7 C 92 H 20 137/84 11/23/22 15:01 99 H Pulse Ox O2 Del Method 11/24/22 14:00 99 Room Air 11/24/22 13:15 99 Room Air 11/24/22 13:30 98 Room Air 11/24/22 13:00 98 Room Air 11/24/22 12:45 96 Room Air 11/24/22 12:30 96 Room Air 11/24/22 12:10 97 Room Air 11/24/22 11:55 97 Room Air 11/24/22 11:19 11/24/22 05:57 11/24/22 10:03 97 Room Air 11/24/22 07:46 97 Room Air 11/24/22 02:59 100 Room Air 11/24/22 00:00 11/23/22 23:26 93 Room Air 11/23/22 19:22 94 Room Air 11/23/22 15:00 99 Room Air 11/23/22 15:01 Cardiovascular RRR, no murmur, no edema Respiratory normal respiratory effort, lungs clear to auscultation Pre-Sedation Airway Assessment Smoking Status: Never smoker Hx Sleep Apnea: No Hx Difficult Intubation: No Short, Thick Neck: No Thyromental Distance: > or= 3.5 Finger Breadths Oral Cavity: + WNL Mallampati Class: II ASA: ASA4 NPO Status Date of Last Intake of Fluids: 11/23/22 Time of Last Intake of Fluids: 23:00 Date of Last Intake of Solid Food: 11/23/22 Time of Last Intake of Solid Foods: 23:00 Notes The planned sedation has been discussed with the patient. Informed Consent was obtained. I have identified the patient, determined the appropriateness of sedation and have assessed the patient immediately prior to the procedure. All medicine(s) and interventions are by my order.
--- NOTE | 2022-11-24 14:48 | Post Anesthesia Assessment ---
Date of Service November 24, 2022 Post Sedation Assessment Vital Signs Temp Pulse Pulse Resp BP BP BP 11/24/22 14:00 93 H 16 127/70 11/24/22 13:15 93 H 16 107/64 11/24/22 13:30 92 H 16 107/64 11/24/22 13:00 92 H 16 99/69 L 11/24/22 12:45 93 H 16 120/68 11/24/22 12:30 92 H 16 110/59 L 11/24/22 12:10 93 H 20 97/48 L 11/24/22 11:55 93 H 20 104/56 L 11/24/22 11:19 128 H 131/78 11/24/22 05:57 99 H 11/24/22 10:03 98 H 20 159/103 H 11/24/22 07:46 36.5 C 97 H 18 194/97 H 11/24/22 02:59 36.5 C 95 H 18 159/89 H 11/24/22 00:00 96 H 11/23/22 23:26 36.4 C L 83 18 165/98 H 11/23/22 19:22 36.5 C 97 H 20 137/84 11/23/22 15:00 36.7 C 92 H 20 137/84 11/23/22 15:01 99 H Pulse Ox O2 Del Method 11/24/22 14:00 99 Room Air 11/24/22 13:15 99 Room Air 11/24/22 13:30 98 Room Air 11/24/22 13:00 98 Room Air 11/24/22 12:45 96 Room Air 11/24/22 12:30 96 Room Air 11/24/22 12:10 97 Room Air 11/24/22 11:55 97 Room Air 11/24/22 11:19 11/24/22 05:57 11/24/22 10:03 97 Room Air 11/24/22 07:46 97 Room Air 11/24/22 02:59 100 Room Air 11/24/22 00:00 11/23/22 23:26 93 Room Air 11/23/22 19:22 94 Room Air 11/23/22 15:00 99 Room Air 11/23/22 15:01 Recovery Score Activity: Moves 4 extremities Respiration: Deep Breath/Cough Circulation: +/-20% PreAnes Value Consciousness: Fully Awake Oxygen Saturation: > 92% On Room Air Post Anesthesia Score: 10 Discharge Sedation Level of Care: Phase I Post Sedation Plan On clinical assessment, the patient appears to have tolerated the sedation without complications. Patient is recovering as anticipated. Patient will continue to be monitored by nursing and may be discharged when sedation discharge criteria are met per below protocol. Upon Completions of procedure up to 15 minutes continue every 5 minute vital signs and the P.A.R. score; then discharge to a Phase I or Fast Track to Phase II per the following guidelines: * Discharge Patient to appropriate Phase II area if PAR is 8 or greater or return to pre- procedure baseline. The post - procedure orders will be as directed. * If PAR score is less than 8 or not return to pre-procedure baseline then patient will follow Phase I monitoring till PAR is reached for Phase II. The Phase I may be done in procedure room or may call to secure a Phase I area. * If naloxone or flumazenil are used for reversal, hold in Phase I for continued monitoring from when last reversal dose was given for a minimum of 60 minutes or longer pending the nurse and/or physician discretion of patient condition before discharge to Phase II. Please call the Sedation Physician to re-evaluate and complete post-note for discharge to Phase II area. Do NOT discharge from procedure sedation or Phase 1 until post- sedation evaluation note is complete by procedure /sedation MD Sedation Discharge Instructions to be given to the patient at discharge to home. [facility] Procedure Codes (Charges) Indication for Procedure Indication for procedure: NSTEMI Sedation/Anesthesia Procedure 1: Sedation/Anesthesia: 14740 Mod Sedation by the same physician;Init15 Min Child Age 5 & Up (initial 15 min) Total Sedation Time (minutes): 37 Procedure 2: Sedation/Anesthesia: 94076 Mod Sedation by the same physician; Ea [id number] Minutes (additional 22 mins) Total Sedation Time (minutes): 37
--- NOTE | 2022-11-24 15:17 | Cardiac Catheterization ---
[facility] Data: Art Director Cardiac Status Clinical evaluation leading to the procedure CAD Presenation: Non STEMI Anginal Classification: CCS IV Heart Failure: No Cardiogenic Shock within 24 Hours: No Cardiac Arrest within 24 Hours: No Imaging Studies Past 6 Months: No Stress Studies Past 6 Months: No Coronary Anatomy Left Main (% Stenosis): Normal LAD (% Stenosis): Proximal (Severe up to 90%) and Mid (100%) D1 (% Stenosis): Normal (Diffuse moderate to severe) Circumflex (% Stenosis): Normal (Mild scattered) OM1 (% Stenosis): Ostial (Subtotal) OM2 (% Stenosis): Proximal (SUPERVISOR WATERPROOFING) RCA (% Stenosis): Proximal (Diffuse severe) and Mid (100%) Aortography Aortic Regurgitation: Dilated ascending Diagnostic Physicians Name: Robbie Jiang MD, PhD Closure Device Percutaneous Entry Location: Femoral Closure Device: Angio-Seal Recommendations: Medical Therapy and/or Counseling Cardiac Cath Procedure Full Procedure Date November 24, 2022 Pre-Procedure Diagnosis Pre-Procedure Diagnosis: Non STEMI AUC Score AUC Score: 07 Post-Procedure Diagnosis Post-Procedure Diagnosis: Severe CAD Procedure(s) Performed Procedure(s) Performed: Coronary Angiography, Ultrasound Guided Vascular Access and Aortography Home Health Rn Robbie Jiang MD, PhD Estimated Blood Loss Estimated Blood Loss: 10 mL Medication(s) Medication(s): Fentanyl, Lidocaine 1% and Versed Summary of Findings Brief description: Patient was brought to the cardiac catheterization suite where he was shaved and prepped in a sterile fashion. Sedated using IV Versed and fentanyl. Soft tissues of the right groin were anesthetized using 10 mL of 1% Xylocaine. Using the ultrasound for guidance, the right femoral artery was accessed and a 5 [place]vor[place] femoral artery sheath was placed. All catheters were advanced and exchanged over a 0.035 J-tip wire. Left coronary angiography in orthogonal views with a 5 [place]vor[place] JL 5 diagnostic catheter. Right coronary angiography in orthogonal views with a 5 [place]vorian JR4 diagnostic catheter. DIAZ bypass graft angiography was performed with a 5 [place]vor[place] JR4 diagnostic catheter. SVG to OM graft angiography was performed with a 5 [place] JR4 diagnostic catheter. SVG to PDA graft angiography was attempted with a 5 [place] multipurpose catheter. Supravalvular aortography was performed with a 5 [place]vorian pigtail catheter. Limited right femoral artery angiography was performed to evaluate for closure. Findings were suboptimal, however, closure was felt to be the most prudent approach. Therefore, a 6 [place] Angio-Seal closure device was exchanged for the 5 [place]vor[place] sheath. It was deployed in the recommended fashion. We obtained immediate hemostasis and the patient remained hemodynamically stable. This ended the case. Coronary and bypass graft angiography: LMT: Large-caliber vessel which is calcified and has diffuse mild disease. It bifurcates into the LAD and left circumflex. LAD: There is extensive severe calcification in the ostial through the mid vessel. There is also long contiguous severe stenosis ranging from 70 to 90%. The LAD gives a septal trunk. The mid vessel appears to be occluded. There also appears to be a small branching diagonal. LCx: Large caliber vessel running in the AV groove. First OM arises high and appears to be narrow with probable severe subtotal occlusion at the ostium. The AV groove vessel has mild to moderate calcification and diffuse mild disease less than 40% stenosis. There appears to be a small caliber chronically occluded second obtuse marginal branch. Distally the AV groove vessel is larger and then appears to provide an atrial branch and a PDA which is relatively small in caliber. RCA: Probably codominant. Peers to be severely calcified proximally with diffuse up to 80% stenosis and then the mid RCA is 100% occluded. PDA fills faintly via left to right collateralization. SVG to OM: Mild degeneration throughout. Mild disease proximally. Distally there is a venous valve in 1 view appearing significantly diseased at this level and at the other view without significant disease. The vein graft touches on a medium caliber [place] vessel which is seen to branch distally and approaches the apex. There is limited retrograde flow up the [place] vessel. SVG to PDA (?): This graft appears to be 100% occluded just after the ostium. DIAZ to LAD: Large caliber and widely patent graft. Distal anastomosis on the early distal LAD. The [place] vessel has diffuse disease and is relatively small in caliber. 50 to 70% at the anastomosis. Then, it is seen to wrap the apex where there is a 95% stenosis. LAD provides left to right collateralization. Supravalvular aortography: Ascending aorta appears to be at least mildly dilated. Diffuse mild atherosclerosis SVG to the right is occluded just after the ostium No significant aortic insufficiency Summary: 1. 2 out of 3 bypass grafts remain patent. 2. Severe [place] vessel coronary artery disease 3. No appropriate targets for PCI. (Small caliber target vessels) 4. Recommend guideline directed medical therapy for secondary prevention of coronary disease as tolerated. This should include aspirin, beta-steph, high intensity statin therapy. Cannot tolerate LUPE inhibitor/ARB secondary to poor renal function. 5. If blood pressure allows, would add long-acting nitrate. Hemodynamics Rest Ao:: 108/70 mmHg, mean 92 mmHg Final Ao: 112/87 mmHg, mean 95.3 mmHg LV: Not performed Recommendations Recommendations: Medical Therapy and/or Counseling Radiation Exposure (mGy) 823 mGy, fluoroscopy time 9.9 minutes Contrast (mls) 126 mL Anesthesia 1 mg IV Versed, 50 mcg IV fentanyl Procedural Complication(s) None Disposition Recovery Room\PACU I attest to the content of the Intraoperative Record and any orders documented therein. Any exceptions are noted below. [facility] Card Cath Procedure Codes Cardiac Catheterization Procedure 1: Cardiovascular Cath Procedures: 48868 Supravalvular Aortography (Injection during Cardiac Cath) Procedure 2: Cardiovascular Cath Procedures: 39028 Coronaries and Grafts/IM (venous & atrial) Therapeutic Services & Ancillary Procedure 1: Cardiovascular Tx and Anc Procedures: 71380 Ultrasonic Guidance Vascular Access Moderate Sedation Procedure 1: Sedation/Anesthesia: 13663 Mod Sedation by the same physician;Init15 Min Child Age 5 & Up (Initial 15 min (total 37 min)) Procedure 2: Sedation/Anesthesia: 03114 Mod Sedation by the same physician; Ea [id number] Minutes (Additional 22 min (total 37 min)) PG Care Time/CCT Total # of Minutes Spent Total Time Spent with Patient: Total time spent is greater than 50% in coordination of care (as documented) at patient's floor/unit and/or counseling patient:
--- NOTE | 2022-11-24 15:28 | Hospitalist Progress Note ---
Date of Service November 24, 2022 Assessment & Plan (1) Chest pain: Plan: He appears to have suffered a non-ST elevation [place]. Continue current medical management including Eliquis. Continue telemetry. Appreciate cardiology consultation. Left heart catheterization today, November 24, demonstrated known underlying disease without any indication for any intervention. Medical management going forward. Cardiac echo negative for regional wall motion abnormalities (2) Diabetic foot ulcers: Plan: Appreciate wound care consultation. Santyl ordered for the right great toe (3) DM II (diabetes mellitus, type II), controlled: Plan: ADA diet. Sliding scale coverage as needed. Continue current medical management. Metformin held on admission (4) CAD (coronary artery disease): Plan: Previous coronary artery bypass grafting in 1994. Appreciate cardiology consul tation. Continue current medical management (5) CKD (chronic kidney disease), stage III: Plan: Monitor intake and output. Continue IV fluids. Serial labs (6) Peripheral arterial disease: Plan: The patient states he has had multiple peripheral interventions. Continue medical management (7) HTN (hypertension): Plan: Controlled with current medical management (8) Atrial flutter: Plan: Currently in normal sinus rhythm. Cardiology has continued Eliquis therapy (9) Dyslipidemia: Plan: Continue statin therapy (10) Dementia: Plan: Appears to be mild. Continue supportive care Plan Probable discharge to home tomorrow, November 25 Admission and Anticipated Discharge Date Admission Date: November 23, 2022 Subjective The patient was seen in cardiac catheterization recovery. Alert and oriented without complaint. No intervention needed. Medical management from this point forward. Hopeful discharge to home tomorrow, November 25 Review of Systems Review of Systems: Constitutional-no fever or chills ENT-no blurred vision, no double vision, no epistaxis, no sore throat Respiratory-no cough, no wheezing, no shortness of breath Cardiac-no palpitations, no syncope. Chest discomfort has resolved GI-no nausea, vomiting, diarrhea, melena, hematochezia -no urinary retention, no urinary incontinence, no dysuria, no hematuria Musculoskeletal-no joint pain, no muscle tenderness Skin-no bruising, no rashes, no pruritus Neuro-no isolated weakness, no paresthesia, no weakness Psych-no depression, no anxiety Physical Exam Physical Exam: General-alert and oriented x3, no fevers, no chills HEENT-head atraumatic and normocephalic, pupils equal and reactive to light, extraocular muscles intact Neck-no lymphadenopathy or thyromegaly, trachea midline Chest-clear to auscultation percussion. No rales wheezing or rhonchi Cardiac-regular rate and rhythm, normal S1 and S2 Abdomen-normal bowel sounds, nontender, no hepatosplenomegaly Extremities-no cyanosis, clubbing, or edema Neuro-cranial nerves II through XII intact, motor and sensory function within normal limits, strength symmetrical, no focal deficits Psych-normal affect, normal mood Results & Data Results & Data ([facility]) Vital Signs (Past 12 Hours) Vital Signs Temp Pulse Pulse Resp BP BP BP 11/24/22 15:05 94 H 16 126/72 11/24/22 14:00 93 H 16 127/70 11/24/22 13:15 93 H 16 107/64 11/24/22 13:30 92 H 16 107/64 11/24/22 13:00 92 H 16 99/69 L 11/24/22 12:45 93 H 16 120/68 11/24/22 12:30 92 H 16 110/59 L 11/24/22 12:10 93 H 20 97/48 L 11/24/22 11:55 93 H 20 104/56 L 11/24/22 11:19 128 H 131/78 11/24/22 05:57 99 H 11/24/22 10:03 98 H 20 159/103 H 11/24/22 07:46 36.5 C 97 H 18 194/97 H Pulse Ox O2 Del Method 11/24/22 15:05 99 Room Air 11/24/22 14:00 99 Room Air 11/24/22 13:15 99 Room Air 11/24/22 13:30 98 Room Air 11/24/22 13:00 98 Room Air 11/24/22 12:45 96 Room Air 11/24/22 12:30 96 Room Air 11/24/22 12:10 97 Room Air 11/24/22 11:55 97 Room Air 11/24/22 11:19 11/24/22 05:57 11/24/22 10:03 97 Room Air 11/24/22 07:46 97 Room Air Laboratory Results 11/24/22 06:23 11/24/22 06:23 PG Care Time/CCT Total # of Minutes Spent Total Time Spent with Patient: Total time spent is greater than 50% in coordination of care (as documented) at patient's floor/unit and/or counseling patient: Coding Level of Care Code 05242 SUB INP/OBS CARE 3/50MIN Diagnoses Chest pain R07.9 Diabetic foot ulcers E11.621; L97.509 DM II (diabetes mellitus, type II), controlled E11.59 Diabetes mellitus senior care insulin use: without senior care use Diabetes mellitus complication status: with circulatory complication Diabetes mellitus complication detail: with other circulatory complications CAD (coronary artery disease) I25.10 CKD (chronic kidney disease), stage III N18.3 Peripheral arterial disease I73.9 HTN (hypertension) I10 Atrial flutter I48.92 Dyslipidemia E78.5 Dementia F03.90 (1) DM II (diabetes mellitus, type II), controlled 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
[2022-11-24] MEDS: AMIODARONE 200 MG TAB PO SCH (21:03)
[2022-11-24] MEDS: MEMANTINE HCL 10 MG TAB PO SCH (21:03)
[2022-11-24] MEDS: DOXYCYCLINE HYCLATE 100 MG CAP PO SCH (21:03)
[2022-11-25] MEDS: LEVOTHYROXINE SODIUM 75 MCG TABLET PO SCH (06:33)
[2022-11-25] MEDS: DOXYCYCLINE HYCLATE 100 MG CAP PO SCH (08:21)
[2022-11-25] MEDS: COLLAGENASE OINT 30 GM TUBE EXT SCH (08:21)
[2022-11-25 08:55] LABS: Hematocrit (blood only) 36.3 % (42.0-52.0); Hemoglobin 11.8 g/dl (14.0-18.0); Mean Corpuscular Hemoglobin 28.4 pg (25.0-34.0); Mean Corpuscular Hgb Conc 32.5 g/dL (32.0-36.0); Mean Corpuscular Volume 87.3 fL (80.0-100.0); Platelet Count 209 K/uL (130-400); RDW Coefficient of Variation 17.9 % (11.5-14.5); RDW Standard Deviation 56.2 fL (36.4-46.3); Red Blood Count 4.16 M/uL (4.70-6.10); White Blood Count 8.66 K/ul (4.8-10.8)
[2022-11-25 08:59] LABS: BUN Creatinine Ratio 23.2 (10-20); Calcium 9.7 mg/dl (8.5-10.1); Creatinine Clr Calc Pharmacy 25.8 ml/min; Est GFR (African American) 36.9 ml/min; Est GFR (Non-African American) 31.8 ml/min; Potassium 4.2 mmol/L (3.5-5.1)
[2022-11-25] MEDS ORDERED: CHOLECALCIFEROL 1,000 UNITS 25 MCG TAB PO SCH (09:00)
[2022-11-25] MEDS ORDERED: NIACIN 500 MG TAB PO SCH (09:00)
[2022-11-25] MEDS ORDERED: COLLAGENASE OINT 30 GM TUBE TOP SCH (09:00)
[2022-11-25] MEDS: INSULIN ASPART PER UNIT SC SCH ×2 (09:05→12:13)
[2022-11-25] MEDS: METOPROLOL TARTRATE 25 MG TAB PO SCH (10:04)
[2022-11-25] MEDS: ROSUVASTATIN CALCIUM 10 MG TAB PO SCH (10:04)
[2022-11-25] MEDS: LOSARTAN POTASSIUM 25 MG TAB PO SCH (10:04)
[2022-11-25] MEDS: CLOPIDOGREL BISULFATE 75 MG TAB PO SCH (10:04)
[2022-11-25] MEDS ORDERED: ISOSORBIDE MONO EXTENDED REL 30 MG TABCR PO ONE (11:05)
--- NOTE | 2022-11-25 11:47 | Discharge Summary ---
Date of Service November 25, 2022 Admission HPI Per Admitting Provider Dallin is an 87 year old male with a PMH significant for CAD S/P CABG x 3 in 1994, atrial flutter S/P cardioversion x 3 on Eliquis, PAD S/P and right SFA angioplasty with Dr. Barbour (On plavix), hypertension, hyperlipidemia, dementia, hypothyroidism, DM II, and stage 3 CKD who presented to the [facility] ED on 11/22/22 with a chief complaint of chest pain. In the ED the patient was found to be afebrile, initially hypertensive at 190/102, and stable on RA. Labs were remarkable for a CBC with WBC WNL, stable Hgb at 12.1, stable platelets of 208, stable cr at 1.56 (this appears to be his baseline), stable electrolytes, LFTs WNL, initial high sensitivity trop of 29. Ches xray was read as "No acute process.". His initial ECG was showing NSR with ST and T-wave abnormalities in the inferior leads. Prior to admission the patient was given 0.5 inches of nitroglycerine paste. At the time of the exam the patient was sitting in bed in no acute distress with his and a family friend sitting bedside, history was obtained from all. The patient states that he began to develop SOB and nausea at approximately midnight this morning. He denies chest pain but also noted some chest heaviness with his SOB and nausea. His symptoms were intermittent, did not radiate, and was not relieved after taking a dose of tramadol. He states that at the time of the exam his symptoms have currently resolved. He states that this chest discomfort was different than the discomfort he experienced in 1994 when he underwent his CABG procedure. He denies recent fevers, chills, cough, vomiting, abdominal pain, diarrhea, dysuria, hematuria, and recent falls. He has been sleeping in a recliner recently, when asked why he states it is because of his chronic right hip pain. He has noted some increased SOB with exertion over the past 1-2 months. He is able to ambulate with a cane at this time. He has chronic wounds on the right heel and great toe which have been stable, he is followed by the wound care clinic weekly for these wounds. He follows with Dr. Nugent of [facility], per his last clinic note, the patient wishes to continue on amiodarone at this time for rate control. He has been unable to tolerate high intensity statin therapy in the past and is only on 10 mg of crestor daily at this time. The patient has been off of beta steph therapy due to previous episodes of bradycardia. We discussed code status, his states that they have living moore and the Patient confirmed that he is a DNR/DNI. Please refer to Dr. Gallardo's attestation for any changes to the treatment plan Principal Diagnosis NSTEMI, acute on chronic kidney disease Discharge Exam General-alert and oriented x3, no fevers, no chills HEENT-head atraumatic and normocephalic, pupils equal and reactive to light, extraocular muscles intact Neck-no lymphadenopathy or thyromegaly, trachea midline Chest-clear to auscultation percussion. No rales wheezing or rhonchi Cardiac-regular rate and rhythm, normal S1 and S2 Abdomen-normal bowel sounds, nontender, no hepatosplenomegaly Extremities-no cyanosis, clubbing, or edema Neuro-cranial nerves II through XII intact, motor and sensory function within normal limits, strength symmetrical, no focal deficits Psych-normal affect, normal mood Discharge Data Allergies Allergy/AdvReac Type Severity Reaction Status Date / Time Penicillins Allergy Unknown GENERALIZED Verified 11/17/22 13:43 AND FACIAL SWELLING shellfish derived Allergy Unknown GENERALIZED Verified 11/17/22 13:43 AND FACIAL SWELLING Sulfa (Sulfonamide Allergy Unknown GENERALIZED Verified 11/17/22 13:43 Antibiotics) AND FACIAL SWELLING Consultations 11/22/22 10:42 ED Decision to Admit Stat 11/23/22 08:18 Consult Cardiology Routine Procedures Performed Operation Date: 11/24/22 09:30 Actual Procedures p Cineradiography w/Routine Exam - Robbie Jiang MD, PhD p Cath, Cors with Grafts (no LV) - Robbie Jiang MD, PhD s Aortogram, Thoracic - Robbie Jiang MD, PhD s Ultrasound Vascular Access - Robbie Jiang MD, PhD Ordered Studies 11/24/22 06:36 CL Cath Imgs for PACS use only Routine 11/24/22 12:08 US abdomen limited Stat Hospital Course (1) Chest pain: He appears to have suffered a non-ST elevation AL. Continue current medical management including Eliquis. Continue telemetry. Appreciate cardiology consultation. Left heart catheterization completed on November 24, demonstrated known underlying disease without any indication for any intervention. Medical management going forward. Cardiac echo negative for regional wall motion abnormalities. Isosorbide mononitrate has been added (2) Diabetic foot ulcers: Appreciate wound care consultation. Santyl ordered for the right great toe (3) DM II (diabetes mellitus, type II), controlled: ADA diet. Sliding scale coverage as needed. Continue current medical management. Metformin held on admission (4) CAD (coronary artery disease): Previous coronary artery bypass grafting in 1994. Appreciate cardiology consultation. Continue current medical management. Isosorbide mononitrate has been added (5) CKD (chronic kidney disease), stage III: Acute on chronic kidney disease stage III. Improved. Monitor intake and outp ut. Treated with IV fluids. Serial labs (6) Peripheral arterial disease: The patient states he has had multiple peripheral interventions. Continue medical management (7) HTN (hypertension): Controlled with current medical management (8) Atrial flutter: Currently in normal sinus rhythm. Cardiology has continued Eliquis therapy (9) Dyslipidemia: Continue statin therapy (10) Dementia: Appears to be mild. Continue supportive care Plan discharge to home today, November 25 . Proper use of sublingual nitroglycerin has been explained to the patient Total Time Total Time Spent Total Time Spent (In Minutes): 35 minutes Discharge Plan Discharge Items Patient Disposition: Home - Self-Care Reason For Visit: CHEST PAIN Discharge Diagnosis: NSTEMI, acute on chronic kidney disease stage III Activity: As commented below Activity Comment: Avoid overexertion Non-emergency contact: Primary Care Provider and Range Ecologist Call non-emergency contact if: you have any medication questions and your symptoms worsen Follow-up/Referrals: Munir Andino III, CRNP [Primary Care Provider] - Diet: Carb Consistent or DM2 and Heart Healthy Addtl Attending Provider Instructions: Use nitroglycerin under your tongue as directed for any chest discomfort. Long- acting isosorbide mononitrate has been added to the medication regimen along with metoprolol Pending Studies at Discharge: No Stand-Alone Forms: My [employer], Smoking Cessation Medications and DC Order Prescriptions: New isosorbide mononitrate 30 mg Tablet Extended Release 24 Hr 30 mg PO QAM Qty: 30 0RF metoprolol tartrate 25 mg Tablet 25 mg PO BID Qty: 60 0RF nitroglycerin 0.4 mg tablet, sublingual 0.4 mg sublingual Q5M PRN (Reason: chest pain) Qty: 25 0RF Continued niacin 500 mg tablet 500 mg PO DAILY Santyl 250 unit/gram ointment 1 applic topical DAILY 14 Days Qty: 30 1RF amiodarone [Pacerone] 200 mg tablet 200 mg PO QPM Qty: 90 3RF losartan 25 mg tablet 25 mg PO DAILY Qty: 90 1RF apixaban 2.5 mg tablet 2.5 mg PO BID Qty: 180 3RF rosuvastatin 10 mg tablet 10 mg PO DAILY Qty: 90 1RF doxycycline hyclate 100 mg tablet 100 mg PO bid Qty: 28 0RF metformin 1,000 mg tablet extended release 24 hr 1,000 mg PO DAILY Qty: 30 2RF levothyroxine 75 mcg tablet 75 mcg PO DAILY Qty: 30 2RF (DME) lancets [OneTouch UltraSoft Lancets] misc See Dose Instructions .ROUTE .MEDSUPPLY Qty: 50 Rx Instructions: As directed memantine [Namenda] 10 mg tablet 10 mg PO QPM 7 Days Qty: 30 5RF Rx Instructions: Take 1/2 pill daily for a week then increase to 1 tablet daily. (DME) OneTouch Ultra Blue Test Strip strip See Dose Instructions .ROUTE .MEDSUPPLY Qty: 10 Rx Instructions: As directed cholecalciferol (vitamin D3) 2,000 unit capsule 2,000 units PO QAM clopidogrel 75 mg tablet 75 mg PO DAILY Qty: 30 0RF Discharge Orders: Discharge Order (Routine); Ordered 11/25/22 Ordered By: Carlton Fox/Other Patient Handouts: High Blood Sugar (Hyperglycemia), Hypoglycemia (Low Blood Sugar), Managing Type 2 Diabetes, Understanding Carbohydrates, Diabetes: Meal Planning, Special Foot Care for Diabetes Admission Data Admit Date/Time: 11/23/22 12:37 Attending Provider: Carlton Mosquera Admit Provider: Antoni Gallardo Primary Care Provider: Munir Andino III Other Providers: Antoni Gallardo ; Gold Ferrari ; Josh Christian ; Ge Barrett ; Robbie Jiang ; Mynor Evans ; Tadeo Joaquin Jr ; Keo Nugent ; Philly Cortes ; Helen Moyer ; Josh Barbour ; Vik Buck ; Carlton Pastrana ; Tarsha Mast ; Nelida Rodrigues ; Kirill Grajeda ; Pedro Harper ; Kendall Hui ; Robbie Clark V. 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
[2022-11-26] MEDS ORDERED: ISOSORBIDE MONO EXTENDED REL 30 MG TABCR PO SCH (09:00)
== END 2022-11-25 13:37 | disposition home or self-care (01) | DRG 281 ==
LOC: 2W 08:34 → ED 08:34 → SUATTDRO 10:30 → 2W 14:22 → 2S 11-24 11:51
PROC: CLB.CCG (2022-11-24 09:30)
PROC: CLB.ATH (2022-11-24 09:30)

== ENCOUNTER 2023-04-17 03:53 | Observation (INO) ==
--- NOTE | 2023-04-17 04:13 | Emergency Department Note ---
Impression & Plan Non-ST elevation [place] (NSTEMI) Admit to the [facility] ED Provider Note NAME: ARSENIO BARRERA AGE: 87 SEX: M ARRIVES VIA: Ambulance INFORMANT: Patient ED PROVIDER(S): Janneth Flowers DO CHIEF COMPLAINT: Chest pain PLAN: Disposition: Admit to the [facility] Condition: Stable MEDICAL DECISION MAKING: This is an 87-year-old male patient who presents to the emergency department after awaking with chest discomfort and shortness of breath. Patient has a c ardiac history including CABG in 1994. This episode is very similar to his presentation in January 2023. Laboratory studies revealed no leukocytosis. H&H were stable with a hemoglobin of 11.7. BUN/creatinine were also stable. Chest x-ray revealed no pulmonary pathology but there was cardiomegaly. EKG had no evidence of acute ST segment elevation. However, the patient does have an elevated troponin at 31.4. Patient did have persistent chest heaviness and was given a dose of sublingual nitroglycerin which did relieve the chest discomfort. The patient does take blood thinners already. I discussed the case with the [facility] and they will evaluate for further management as an inpatient. Triage Nursing notes reviewed and agree with them. Prior medical records reviewed including previous admission to the hospital Vital Signs: reviewed and remarkable for mild hypertension Differential diagnosis: STEMI, NSTEMI, GERD, aortic dissection ER treatment provided: Cardiac monitoring Twelve-lead EKG Sublingual nitroglycerin Diagnostics interpreted by me: ECG: Normal sinus rhythm at a rate of [address] segment depression and T wave inversion in the inferior leads. This is unchanged from previous EKGs. There are no acute signs of ischemia or ectopy. Cardiac Monitoring: Normal sinus rhythm at a rate of 92 Laboratory studies: See below Imaging studies: As per my independent interpretation Portable chest x-ray: Borderline cardiomegaly with no pulmonary infiltrates or pulmonary vascular congestion. HPI: 87/M arrives for evaluation of chest pain shortness of. Patient states he awoke from sleep with some chest discomfort and shortness of breath. He has a history of coronary artery disease with three-vessel bypass in 1994. Patient had a slight heart attack in January 2023 and states the symptoms tonight feel exactly the same. PAST MEDICAL HISTORY:See Below PAST SURGICAL HISTORY:See Below FAMILY HISTORY:See Below SOCIAL HISTORY:See Below HOME MEDICATIONS:See list ALLERGIES:See list VITALS:See Below PHYSICAL EXAMINATION: HEENT: Head - normocephalic and atraumatic. Pupils are equal, round, and reactive to light. Extraocular eye muscles are intact, and sclera are anicteric. Nose - moist nasal mucosa without discharge. Mouth - moist buccal mucosa. Oropharynx is nonerythematous and there is no tonsillar exudate or edema noted. Neck: Supple; no JVD or cervical lymphadenopathy Heart: Regular rate and rhythm. There is a normal S1 and S2 with no murmurs, clicks, or gallops appreciated. Lungs: Clear to auscultation bilaterally with no wheezes, rales, or rhonchi. Abdomen: Soft, completely nontender, nondistended, with good bowel sounds. There are no palpable pulsatile masses or hepatosplenomegaly. There is no guarding, rigidity, or rebound noted. Extremities: No evidence of cyanosis, clubbing, or edema. There are easily palpable peripheral pulses. Skin: warm and dry with good turgor and no rashes. ED COURSE: Times/Reassessments: 1615 patient was evaluated in room B3. A complete history and physical was performed. A twelve-lead EKG was obtained as described above. An order was placed for continuous cardiac monitoring. The patient was in a normal sinus rhythm at a rate of 92. Patient continued to complain of some substernal chest discomfort and was given a sublingual nitroglycerin. A portable chest x-ray was performed and described above. I reviewed the results of the laboratory studies with the patient. Janneth Flowers DO Past Med/Surg History Medical History Afib follows w/ Dr Nugent- last visit 4-5 mos ago Anemia Anticoagulant long-term use eliquis CAD (coronary artery disease) s/p CABG x 3 (1994) CKD (chronic kidney disease), stage III Dementia Diabetic ulcer of right foot Difficult airway for intubation Right ELLEN: 03/24/17 - Elective Glidescope #4 due to limited ROM, ETT #7.5, HiLo Straight, Grade 2 View with Large Epiglottis (no specific indication why SAB not used) DM II (diabetes mellitus, type II), controlled Dyslipidemia HTN (hypertension) Hx of non-ST elevation myocardial infarction (NSTEMI) Hypothyroidism On amiodarone therapy Osteomyelitis right heel PAD (peripheral artery disease) s/p right SFA angioplasty Peripheral arterial disease Surgical History History of appendectomy History of cardiac cath 1994 -- subsequent CABG x3 History of cardioversion x3 - most recent at [facility] 2018 History of colonoscopy History of fracture COLLAR BONE/SURGERY FOR History of hernia surgery RIGHT INGUINAL History of hip surgery X2 FOR DISLOCATION RIGHT (POST RIGHT ELLEN) History of incision and drainage Right heel I&D, antibiotic beads: 04/06/19: SAB x 1 at L3/L4 at [facility] History of neck surgery C4-5 "CADAVER BONE" History of repair of left rotator cuff History of tonsillectomy History of total right hip arthroplasty History of vascular surgery right heel vascular procedure (Dr. Barbour) Hx of CABG (~1994) CABG x 3 (1994) S/P cardiac cath S/P closed reduction of dislocated total hip prosthesis Family History Mother Alzheimer disease Father Arthritis Denies family history of Ovarian cancer Prostate cancer Myocardial infarction Breast cancer Colorectal cancer Social History Smoking Status: Never smoker Second Hand Exposure: No; Do You Dip or Chew Tobacco: No; Hx Alcohol Use: No Hx Substance Use: No Preferred Language: Citizen Of [place] Communication Ability: Effective Visual Impairment: No Limitations Hearing Ability: Normal Collection Card Clerk Required: No Beliefs That Will Affect Care: None marital status: Current Living Situation: Spouse 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 Feels Safe at Home: Yes Childhood Exposure to Second-Hand Smoke: No Diet: regular caffeine: Yes Dental Care, Regularly: Yes Physical Activity Frequency: Daily Seatbelt Use: always Sunscreen Use: No Do you think of yourself as: straight/heterosexual Gender Identity: Male Assistive Devices: Cane, Glasses and Walker Allergies Allergies Allergy/AdvReac Type Severity Reaction Status Date / Time Penicillins Allergy Unknown GENERALIZED Verified 04/06/23 14:06 AND FACIAL SWELLING shellfish derived Allergy Unknown GENERALIZED Verified 04/06/23 14:06 AND FACIAL SWELLING Sulfa (Sulfonamide Allergy Unknown GENERALIZED Verified 04/06/23 14:06 Antibiotics) AND FACIAL SWELLING Home Meds Home Medications Medication Instructions Recorded Confirmed lancets (CurbStandTouch UltraSoft #50 ea 04/20/19 04/06/23 Lancets) niacin 500 mg tablet 500 mg PO DAILY 12/24/21 04/17/23 cholecalciferol (vitamin D3) 50 5,000 unit PO QAM 11/26/22 04/17/23 mcg (2,000 unit) capsule ferrous sulfate 27 mg iron tablet 27 mg PO QAM 01/20/23 04/17/23 Previous Rx's Medication Instructions Recorded apixaban 2.5 mg tablet 2.5 mg PO BID #180 tabs 07/05/22 memantine 10 mg tablet (Namenda) 10 mg PO QPM 7 days #30 tabs 09/28/22 collagenase clostridium histo. 250 1 applic topical DAILY 14 days #30 11/11/22 unit/gram topical ointment (Santyl) grams nitroglycerin 0.4 mg sublingual 0.4 mg sublingual Q5M PRN chest 11/25/22 tablet pain #25 tabs amiodarone 200 mg tablet (Pacerone) 100 mg PO QPM #90 tabs 11/26/22 metformin 1,000 mg tablet,extended 500 mg PO DAILY #30 tabs 11/26/22 release 24hr blood sugar diagnostic #100 ea 11/29/22 [facility] 11/29/22 Ultra2 Meter) levothyroxine 75 mcg tablet 75 mcg PO DAILY #90 tabs 01/31/23 losartan 25 mg tablet 25 mg PO DAILY #90 tabs 01/31/23 metoprolol tartrate 25 mg tablet 25 mg PO BID #60 tabs 02/22/23 gabapentin 100 mg capsule 100 mg PO .COMPLEX #150 caps 03/10/23 rosuvastatin 10 mg tablet 10 mg PO DAILY #90 tabs 03/17/23 clopidogrel 75 mg tablet 75 mg PO DAILY #30 tabs 03/29/23 gentamicin 0.1 % topical ointment 1 applic topical DAILY 14 days #30 04/11/23 grams linezolid 600 mg tablet 600 mg PO BID 10 days #20 tabs 04/11/23 Results & Data (ED) Vital Signs Vital Signs - 24 hr 04/17/23 03:50 04/17/23 03:59 04/17/23 04:00 Temperature 36.6 C Temperature Source Oral Pulse Rate 93 H 93 H 93 H Pulse Rate from SpO2 Sensor Pulse Rhythm Regular Pulse Strength Normal Respiratory Rate 18 20 21 Respiratory Effort / Characteristics Non-Labored Spontaneous Respiratory Depth Normal Respiratory Pattern Regular Blood Pressure 173/107 H Blood Pressure Mean 129 Blood Pressure Position Lying Pulse Oximetry 100 100 98 Oxygen Delivery Method Room Air Room Air Room Air Sepsis Recent Fever Within 48 Hours No Sepsis New/Unexplained Change in Mental Status N/A Sepsis Action Taken by Nursing No Action Required 04/17/23 04:02 04/17/23 04:02 04/17/23 04:09 Temperature Temperature Source Pulse Rate 95 H 92 H Pulse Rate from SpO2 Sensor Pulse Rhythm Pulse Strength Respiratory Rate 22 Respiratory Effort / Characteristics Respiratory Depth Respiratory Pattern Blood Pressure 173/107 H Blood Pressure Mean 128 Blood Pressure Position Pulse Oximetry 100 100 Oxygen Delivery Method Room Air Room Air Sepsis Recent Fever Within 48 Hours Sepsis New/Unexplained Change in Mental Status Sepsis Action Taken by Nursing 04/17/23 04:30 04/17/23 04:33 04/17/23 04:40 Temperature Temperature Source Pulse Rate 94 H 93 H 94 H Pulse Rate from SpO2 Sensor 94 H 94 H 95 H Pulse Rhythm Pulse Strength Respiratory Rate 21 20 17 Respiratory Effort / Characteristics Respiratory Depth Respiratory Pattern Blood Pressure 169/98 H 158/96 H 125/75 Blood Pressure Mean 121 116 91 Blood Pressure Position Pulse Oximetry 100 99 96 Oxygen Delivery Method Room Air Room Air Room Air Sepsis Recent Fever Within 48 Hours Sepsis New/Unexplained Change in Mental Status Sepsis Action Taken by Nursing 04/17/23 04:51 04/17/23 04:51 04/17/23 05:00 Temperature Temperature Source Pulse Rate 95 H 95 H Pulse Rate from SpO2 Sensor 95 H 94 H Pulse Rhythm Pulse Strength Respiratory Rate 24 17 Respiratory Effort / Characteristics Respiratory Depth Respiratory Pattern Blood Pressure 140/83 140/83 147/89 H Blood Pressure Mean 104 102 108 Blood Pressure Position Pulse Oximetry 96 98 Oxygen Delivery Method Room Air Room Air Sepsis Recent Fever Within 48 Hours Sepsis New/Unexplained Change in Mental Status Sepsis Action Taken by Nursing 04/17/23 05:30 04/17/23 06:05 04/17/23 06:30 Temperature Temperature Source Pulse Rate 92 H 92 H 92 H Pulse Rate from SpO2 Sensor 92 H 92 H 92 H Pulse Rhythm Pulse Strength Respiratory Rate 19 24 22 Respiratory Effort / Characteristics Respiratory Depth Respiratory Pattern Blood Pressure 135/80 144/79 H 141/74 H Blood Pressure Mean 98 100 96 Blood Pressure Position Pulse Oximetry 97 98 96 Oxygen Delivery Method Room Air Room Air Room Air Sepsis Recent Fever Within 48 Hours Sepsis New/Unexplained Change in Mental Status Sepsis Action Taken by Nursing Laboratory Data 04/17/23 04:00 04/17/23 04:00 Lab Results 04/17/23 04/17/23 04/17/23 Range/Units 04:00 04:00 04:48 WBC 6.79 (4.8-10.8) K/ul RBC 4.02 L (4.70-6.10) M/uL Hgb 11.7 L (14.0-18.0) g/dl Hct 36.2 L (42.0-52.0) % MCV 90.0 (80.0-100.0) fL MCH 29.1 (25.0-34.0) pg MCHC 32.3 (32.0-36.0) g/dL RDW Std Deviation 51.3 H (36.4-46.3) fL RDW Coeff of Cyndi 15.6 H (11.5-14.5) % Plt Count 182 (130-400) K/uL MPV 9.4 (9.4-12.4) fL Immature Gran % (Auto) 0.3 % Neut % (Auto) 70.4 % Lymph % (Auto) 16.9 % [place] % (Auto) 9.6 % Eos % (Auto) 2.2 % Baso % (Auto) 0.6 % Neut # (Auto) 4.78 (1.40-6.50) K/uL Lymph # (Auto) 1.15 L (1.2-3.4) K/uL [place] # (Auto) 0.65 H (0.11-0.59) K/uL Eos # (Auto) 0.15 (0-0.50) K/uL Baso # (Auto) 0.04 (0-0.2) K/uL Immature Gran # (Auto) 0.02 (0.01-0.20) K/uL Sodium 140 (136-145) mmol/L Potassium 4.4 (3.5-5.1) mmol/L Chloride 107 (98-107) mmol/L Carbon Dioxide 24 (21-32) mmol/L Anion Gap 9 (3-11) BUN 34 H (6-23) mg/dl Creatinine 1.88 H (0.6-1.4) mg/dl Est Cr Clr Drug Dosing 24.9 ml/min Est GFR ( Amer) 36.1 ml/min Est GFR (Non-Af Amer) 31.2 ml/min BUN/Creatinine Ratio 18.1 (10-20) Glucose 111 H (70-99(Fasting)) mg/dl Calcium 9.1 (8.6-10.3) mg/dl Total Bilirubin 0.6 (0.2-1.0) mg/dl AST 14 (13-39) U/L ALT 11 (7-52) U/L Alkaline Phosphatase 85 (34-104) U/L Troponin I High Sens 31.4 H (0-20) pg/ml Total Protein 7.4 (6.0-8.3) gm/dl Albumin 3.8 (3.4-5.0) gm/dl Globulin 3.6 (2.5-4.0) gm/dl Albumin/Globulin Ratio 1.1 (0.9-2) Lipase 37 (11-82) U/L Urine Color Urine Appearance (Clear) Urine pH (4.5-7.5) Ur Specific [place] (1.000-1.030) Urine Protein (Negative) Urine Glucose (UA) (Negative) Urine Ketones (Negative) Urine Blood (Negative) Urine Nitrite (Negative) Urine Bilirubin (Negative) Urine Urobilinogen (Negative) Ur Leukocyte Esterase (Negative) Urine RBC (0-4) /hpf Urine WBC (0-5) /hpf Ur Epithelial Cells (0-5) /lpf Urine Bacteria (Negative) SARS-CoV-2, RNA, NAAT NEGATIVE (NEGATIVE) 04/17/23 Range/Units 06:05 WBC (4.8-10.8) K/ul RBC (4.70-6.10) M/uL Hgb (14.0-18.0) g/dl Hct (42.0-52.0) % MCV (80.0-100.0) fL MCH (25.0-34.0) pg MCHC (32.0-36.0) g/dL RDW Std Deviation (36.4-46.3) fL RDW Coeff of Cyndi (11.5-14.5) % Plt Count (130-400) K/uL MPV (9.4-12.4) fL Immature Gran % (Auto) % Neut % (Auto) % Lymph % (Auto) % [place] % (Auto) % Eos % (Auto) % Baso % (Auto) % Neut # (Auto) (1.40-6.50) K/uL Lymph # (Auto) (1.2-3.4) K/uL [place] # (Auto) (0.11-0.59) K/uL Eos # (Auto) (0-0.50) K/uL Baso # (Auto) (0-0.2) K/uL Immature Gran # (Auto) (0.01-0.20) K/uL Sodium (136-145) mmol/L Potassium (3.5-5.1) mmol/L Chloride (98-107) mmol/L Carbon Dioxide (21-32) mmol/L Anion Gap (3-11) BUN (6-23) mg/dl Creatinine (0.6-1.4) mg/dl Est Cr Clr Drug Dosing ml/min Est GFR ( Amer) ml/min Est GFR (Non-Af Amer) ml/min BUN/Creatinine Ratio (10-20) Glucose (70-99(Fasting)) mg/dl Calcium (8.6-10.3) mg/dl Total Bilirubin (0.2-1.0) mg/dl AST (13-39) U/L ALT (7-52) U/L Alkaline Phosphatase (34-104) U/L Troponin I High Sens (0-20) pg/ml Total Protein (6.0-8.3) gm/dl Albumin (3.4-5.0) gm/dl Globulin (2.5-4.0) gm/dl Albumin/Globulin Ratio (0.9-2) Lipase (11-82) U/L Urine Color Red Urine Appearance Turbid A (Clear) Urine pH (4.5-7.5) Ur Specific [place] 1.019 (1.000-1.030) Urine Protein (Negative) Urine Glucose (UA) (Negative) Urine Ketones (Negative) Urine Blood (Negative) Urine Nitrite (Negative) Urine Bilirubin (Negative) Urine Urobilinogen (Negative) Ur Leukocyte Esterase (Negative) Urine RBC >30 H (0-4) /hpf Urine WBC 10-30 H (0-5) /hpf Ur Epithelial Cells 0-5 (0-5) /lpf Urine Bacteria Negative (Negative) SARS-CoV-2, RNA, NAAT (NEGATIVE) Administered Medications Discontinued Medications Nitroglycerin (Nitroglycerin Sl 0.4 Mg/Tab Tab) Confirm Administered Dose 0.4 mg .ROUTE .STK-MED ONE Stop: 04/17/23 04:33 Last Admin: 04/17/23 04:33 Dose: 0.4 mg Documented By: Imaging Data Radiologist's Impression: Chest X-Ray 04/17/23 04:11 SINGLE VIEW CHEST CLINICAL HISTORY: Atypical chest pain. Dyspnea FINDINGS: 2 AP, portable, upright chest radiographs are compared to study dated 11/22/2022. The patient is status post midline sternotomy. The heart is enlarged noting atherosclerotic calcification of the thoracic aorta. The pulmonary vasculature is noncongested. Chronic interstitial thickening is similar to previous. There is bibasilar scarring/atelectasis. The lungs and pleural spaces are otherwise clear. No pneumothorax is seen. The skeletal structures are osteopenic. The bony thorax is grossly intact. IMPRESSION: Cardiomegaly with no active disease in the chest. ACT 112: Negative or not required by law. Electronically signed by: Jigar Acuña M.D. 04/17/2023 7:00 AM Discharge Plan Visit Data Chief Complaint: Cardiac Assessment Stated Complaint: CHEST PAIN, SOB, ED Provider: Janneth Flowers Discharge Problem: Non-ST elevation [place] (NSTEMI) Forms Stand Alone Forms: My [facility] Prescriptions Prescriptions: No Action niacin 500 mg tablet 500 mg PO DAILY Santyl 250 unit/gram ointment 1 applic topical DAILY 14 Days Qty: 30 1RF gabapentin 100 mg capsule 100 mg PO .COMPLEX Qty: 150 1RF Rx Instructions: 100 mg orally AM, PM, 300 mg HS; apixaban 2.5 mg tablet 2.5 mg PO BID Qty: 180 3RF amiodarone [Pacerone] 200 mg tablet 100 mg PO QPM Qty: 90 3RF cholecalciferol (vitamin D3) 50 mcg (2,000 unit) capsule 5,000 unit PO QAM Patient Comments: states the bottle says 125 mcg (5,000) metformin 1,000 mg tablet extended release 24 hr 500 mg PO DAILY Qty: 30 2RF (DME) blood-glucose meter [CurbStandTouch Ultra2 Meter] [facility] See Rx Instructions .Route Qty: 1 0RF Rx Instructions: Test once daily (DME) blood sugar diagnostic Strip See Dose Instructions .ROUTE .MEDSUPPLY Qty: 100 2RF Rx Instructions: Test once daily levothyroxine 75 mcg tablet 75 mcg PO DAILY Qty: 90 3RF losartan 25 mg tablet 25 mg PO DAILY Qty: 90 1RF metoprolol tartrate 25 mg tablet 25 mg PO BID Qty: 60 0RF rosuvastatin 10 mg tablet 10 mg PO DAILY Qty: 90 3RF clopidogrel 75 mg tablet 75 mg PO DAILY Qty: 30 1RF linezolid 600 mg tablet 600 mg PO BID 10 Days Qty: 20 0RF gentamicin 0.1 % ointment 1 applic topical DAILY 14 Days Qty: 30 0RF Rx Instructions: Applied to wound of the right great toe daily. (DME) lancets [CurbStandTouch UltraSoft Lancets] [facility] [place] See Dose Instructions .ROUTE .MEDSUPPLY Qty: 50 Rx Instructions: As directed memantine [Namenda] 10 mg tablet 10 mg PO QPM 7 Days Qty: 30 5RF Rx Instructions: Take 1/2 pill daily for a week then increase to 1 tablet daily. ferrous sulfate 27 mg iron Tablet 27 mg PO QAM nitroglycerin 0.4 mg tablet, sublingual 0.4 mg sublingual Q5M PRN (Reason: chest pain) Qty: 25 0RF Referrals Referrals: Munir Andino III, CRNP [Primary Care Provider] -
[2023-04-17 04:24] LABS: Basophils # (auto) 0.04 K/uL (0-0.2); Basophils % (auto) 0.6 %; Eosinophils # (auto) 0.15 K/uL (0-0.50); Eosinophils % (auto) 2.2 %; Hematocrit (blood only) 36.2 % (42.0-52.0); Hemoglobin 11.7 g/dl (14.0-18.0); Immature Granulocytes # (auto) 0.02 K/uL (0.01-0.20); Immature Granulocytes % (auto) 0.3 %; Lymphocytes # (auto) 1.15 K/uL (1.2-3.4); Lymphocytes % (auto) 16.9 %; Mean Corpuscular Hemoglobin 29.1 pg (25.0-34.0); Mean Corpuscular Hgb Conc 32.3 g/dL (32.0-36.0); Mean Platelet Volume 9.4 fL (9.4-12.4); Monocytes # (auto) 0.65 K/uL (0.11-0.59); Monocytes % (auto) 9.6 %; Neutrophils # (auto) 4.78 K/uL (1.40-6.50); Neutrophils % (auto) 70.4 %; Platelet Count 182 K/uL (130-400); RDW Coefficient of Variation 15.6 % (11.5-14.5); RDW Standard Deviation 51.3 fL (36.4-46.3); Red Blood Count 4.02 M/uL (4.70-6.10); White Blood Count 6.79 K/ul (4.8-10.8)
[2023-04-17] MEDS ORDERED: NITROGLYCERIN SL 0.4 MG/TAB TAB ONE (04:32)
[2023-04-17 04:37] LABS: Albumin Globulin Ratio 1.1 (0.9-2); Albumin Level 3.8 gm/dl (3.4-5.0); BUN Creatinine Ratio 18.1 (10-20); Bilirubin,Total 0.6 mg/dl (0.2-1.0); Calcium 9.1 mg/dl (8.6-10.3); Creatinine Clr Calc Pharmacy 24.9 ml/min; Est GFR (African American) 36.1 ml/min; Est GFR (Non-African American) 31.2 ml/min; Globulin 3.6 gm/dl (2.5-4.0); Potassium 4.4 mmol/L (3.5-5.1); Total Protein 7.4 gm/dl (6.0-8.3)
[2023-04-17 04:42] LABS: Troponin I High Sensitivity 31.4 pg/ml (0-20)
--- NOTE | 2023-04-17 05:38 | History & Physical Report ---
Date of Service April 17, 2023 Assessment & Plan (1) Chest pain: Plan: 87yo male with known CAD s/p CABG x 3V in 1994, recent NSTEMI in November 2022 presenting with chest pain that woke him from sleep. Troponin is mildly elevated at 31.4. EKG with no acute ischemic changes. Patient with some ongoing chest soreness and tightness. -Observation to medical with telemetry -Trend troponin -Check 2D echo -Cardiology consultation appreciated -Continue Plavix, Metoprolol, Crestor, Losartan (2) Dyslipidemia: Plan: Chronic. Stable. -Continue Crestor (3) HTN (hypertension): Plan: Blood pressure stable. Presently 135/80 -Continue Losartan -Continue Metoprolol -Monitor (4) CAD (coronary artery disease): Plan: With history of CABG x 3V in 1994, peripheral arterial disease, recent NSTEMI in November 2022 presenting with chest pain as above. -Continue Plavix, Rosuvastatin, Metoprolol and Losartan (5) Diabetic ulcer of left foot: Plan: Patient with diabetic ulcer, presently being treated with Linezolid and wound care. No evidence of systemic infection -Linezolid -Collagenase -Wound care (6) Afib: Plan: Presently in NSR. Anticoagulated with Apixaban -Continue Amiodarone -Continue Apixaban (7) Hypothyroidism: Plan: Chronic. TSH WNL on 04/01/23 at 2.081 -Synthroid History of Present Illness Chief Complaint: chest pain Primary Care Provider: Munir Andino, III, ABDIRIZAK Dallin Li is a pleasant 87yo male with history of CAD, AF, DM, HTN and HLP presenting with chest discomfort. Patient was resting this evening - watching TV and drifting off to sleep when he developed acute onset of band-like chest pressure across his upper chest. 8/10 in severity. No associated diaphoresis, nausea, dizziness or shortness of breath. Discomfort was non-radiating, non-pleuritic and non-positional. No recent trauma or overuse. He reports that the discomfort was similar to the pain he had in November 2022 when he presented with an NSTEMI. Patient received Nitro x 1 with relief. Presently feels slightly sore and still some tightness across his upper chest. He admits to feeling anxious but otherwise no complaints. Specifically denies fever, chills, cough, SOB, abdominal pain, nausea, vomiting, diarrhea. He is fairly active and denies chest exertional chest pain. Allergies Allergy/AdvReac Type Severity Reaction Status Date / Time Penicillins Allergy Unknown GENERALIZED Verified 04/06/23 14:06 AND FACIAL SWELLING shellfish derived Allergy Unknown GENERALIZED Verified 04/06/23 14:06 AND FACIAL SWELLING Sulfa (Sulfonamide Allergy Unknown GENERALIZED Verified 04/06/23 14:06 Antibiotics) AND FACIAL SWELLING Home Medications Medication Instructions Recorded Confirmed Type lancets ([employer] UltraSoft #50 ea 04/20/19 04/06/23 History Lancets) niacin 500 mg tablet 500 mg PO DAILY 12/24/21 04/17/23 History apixaban 2.5 mg tablet 2.5 mg PO BID #180 tabs 07/05/22 04/17/23 Rx memantine 10 mg tablet (Namenda) 10 mg PO QPM 7 days #30 tabs 09/28/22 04/17/23 Rx collagenase clostridium histo. 250 1 applic topical DAILY 14 days #30 11/11/22 04/17/23 Rx unit/gram topical ointment (Santyl) grams nitroglycerin 0.4 mg sublingual 0.4 mg sublingual Q5M PRN chest 11/25/22 04/17/23 Rx tablet pain #25 tabs amiodarone 200 mg tablet (Pacerone) 100 mg PO QPM #90 tabs 11/26/22 04/17/23 Rx cholecalciferol (vitamin D3) 50 5,000 unit PO QAM 11/26/22 04/17/23 History mcg (2,000 unit) capsule metformin 1,000 mg tablet,extended 500 mg PO DAILY #30 tabs 11/26/22 04/17/23 Rx release 24hr blood sugar diagnostic #100 ea 11/29/22 04/06/23 Rx blood-glucose meter (OneTouch #1 ea 11/29/22 04/06/23 Rx Ultra2 Meter) ferrous sulfate 27 mg iron tablet 27 mg PO QAM 01/20/23 04/17/23 History levothyroxine 75 mcg tablet 75 mcg PO DAILY #90 tabs 01/31/23 04/17/23 Rx losartan 25 mg tablet 25 mg PO DAILY #90 tabs 04/17/23 07/02/23 Rx metoprolol tartrate 25 mg tablet 25 mg PO BID #60 tabs 02/22/23 04/17/23 Rx gabapentin 100 mg capsule 100 mg PO .COMPLEX #150 caps 03/10/23 04/17/23 Rx rosuvastatin 10 mg tablet 10 mg PO DAILY #90 tabs 03/17/23 04/17/23 Rx clopidogrel 75 mg tablet 75 mg PO DAILY #30 tabs 03/29/23 04/17/23 Rx gentamicin 0.1 % topical ointment 1 applic topical DAILY 14 days #30 04/11/23 04/17/23 Rx grams linezolid 600 mg tablet 600 mg PO BID 10 days #20 tabs 04/11/23 04/17/23 Rx Past Med/Surg History Medical History Afib follows w/ Dr Nugent- last visit 4-5 mos ago Anemia Anticoagulant long-term use eliquis CAD (coronary artery disease) s/p CABG x 3 (1994) CKD (chronic kidney disease), stage III Dementia Diabetic ulcer of right foot Difficult airway for intubation Right ELLEN: 03/24/17 - Elective Glidescope #4 due to limited ROM, ETT #7.5, HiLo Straight, Grade 2 View with Large Epiglottis (no specific indication why SAB not used) DM II (diabetes mellitus, type II), controlled Dyslipidemia HTN (hypertension) Hx of non-ST elevation myocardial infarction (NSTEMI) Hypothyroidism On amiodarone therapy Osteomyelitis right heel PAD (peripheral artery disease) s/p right SFA angioplasty Peripheral arterial disease Surgical History History of appendectomy History of cardiac cath 1994 -- subsequent CABG x3 History of cardioversion x3 - most recent at [facility] 2018 History of colonoscopy History of fracture COLLAR BONE/SURGERY FOR History of hernia surgery RIGHT INGUINAL History of hip surgery X2 FOR DISLOCATION RIGHT (POST RIGHT ELLEN) History of incision and drainage Right heel I&D, antibiotic beads: 04/06/19: SAB x 1 at L3/L4 at [facility] History of neck surgery C4-5 "CADAVER BONE" History of repair of left rotator cuff History of tonsillectomy History of total right hip arthroplasty History of vascular surgery right heel vascular procedure (Dr. Barbour) Hx of CABG (~1994) CABG x 3 (1994) S/P cardiac cath S/P closed reduction of dislocated total hip prosthesis Family History Mother Alzheimer disease Father Arthritis Denies family history of Ovarian cancer Prostate cancer Myocardial infarction Breast cancer Colorectal cancer Social History Smoking Status: Never smoker Second Hand Exposure: No; Do You Dip or Chew Tobacco: No; Hx Alcohol Use: No Hx Substance Use: No Preferred Language: Macedonian Communication Ability: Effective Visual Impairment: No Limitations Hearing Ability: Normal Boat Canvas Installer Required: No Beliefs That Will Affect Care: None marital status: Current Living Situation: Spouse 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 Feels Safe at Home: Yes Childhood Exposure to Second-Hand Smoke: No Diet: regular caffeine: Yes Dental Care, Regularly: Yes Physical Activity Frequency: Daily Seatbelt Use: always Sunscreen Use: No Do you think of yourself as: straight/heterosexual Gender Identity: Male Assistive Devices: Cane, Glasses and Walker Review of Systems Review of Systems: All systems reviewed & are unremarkable except as noted in HPI & below Physical Exam Physical Exam: General: patient resting comfortably, NAD, non-toxic in appearance, AA&O x 4 Skin: warm, dry, intact, no rashes or lesions HEENT: NC/AT, PERRL, EOMI, anicteric sclera, conjunctiva without injection, external ear normal to inspection and nontender, nares patent, moist mucus membranes, dentition intact, no oropharyngeal lesions, neck supple, trachea midline, no LAD, no thyromegaly, no JVD Heart: +S1/S2, regular, no m/r/g Lungs: equal air entry bilaterally, no rales/rhonchi/wheezes Abd: +BS, soft, NT/ND, no masses/organomegaly/ascites Ext: warm, 2+ pulses in UE/LE bilaterally, no clubbing/cyanosis or edema Neuro: nonfocal, patient AA&O x 4, speech intact, no facial droop, moving all extremities on command with equal strength 5/5 Results & Data Results & Data Vital Signs (Past 12 Hours) Vital Signs Temp Pulse Resp BP Pulse Ox O2 Del Method 04/17/23 05:00 95 H 17 147/89 H 98 Room Air 04/17/23 04:51 95 H 24 140/83 96 Room Air 04/17/23 04:51 140/83 04/17/23 04:40 94 H 17 125/75 96 Room Air 04/17/23 04:33 93 H 20 158/96 H 99 Room Air 04/17/23 04:30 94 H 21 169/98 H 100 Room Air 04/17/23 04:09 92 H 04/17/23 04:02 95 H 22 100 Room Air 04/17/23 04:02 173/107 H 100 Room Air 04/17/23 04:00 93 H 21 98 Room Air 04/17/23 03:59 93 H 20 100 Room Air 04/17/23 03:50 36.6 C 93 H 18 173/107 H 100 Room Air Laboratory Results Laboratory Results WBC 6.79 K/ul (4.8-10.8) 04/17/23 04:00 RBC 4.02 M/uL (4.70-6.10) L 04/17/23 04:00 Hgb 11.7 g/dl (14.0-18.0) L 04/17/23 04:00 Hct 36.2 % (42.0-52.0) L 04/17/23 04:00 MCV 90.0 fL (80.0-100.0) 04/17/23 04:00 MCH 29.1 pg (25.0-34.0) 04/17/23 04:00 MCHC 32.3 g/dL (32.0-36.0) 04/17/23 04:00 RDW Std Deviation 51.3 fL (36.4-46.3) H 04/17/23 04:00 RDW Coeff of Cyndi 15.6 % (11.5-14.5) H 04/17/23 04:00 Plt Count 182 K/uL (130-400) 04/17/23 04:00 MPV 9.4 fL (9.4-12.4) 04/17/23 04:00 Immature Gran % (Auto) 0.3 % 04/17/23 04:00 Neut % (Auto) 70.4 % 04/17/23 04:00 Lymph % (Auto) 16.9 % 04/17/23 04:00 [place] % (Auto) 9.6 % 04/17/23 04:00 Eos % (Auto) 2.2 % 04/17/23 04:00 Baso % (Auto) 0.6 % 04/17/23 04:00 Neut # (Auto) 4.78 K/uL (1.40-6.50) 04/17/23 04:00 Lymph # (Auto) 1.15 K/uL (1.2-3.4) L 04/17/23 04:00 [place] # (Auto) 0.65 K/uL (0.11-0.59) H 04/17/23 04:00 Eos # (Auto) 0.15 K/uL (0-0.50) 04/17/23 04:00 Baso # (Auto) 0.04 K/uL (0-0.2) 04/17/23 04:00 Immature Gran # (Auto) 0.02 K/uL (0.01-0.20) 04/17/23 04:00 Sodium 140 mmol/L (136-145) 04/17/23 04:00 Potassium 4.4 mmol/L (3.5-5.1) 04/17/23 04:00 Chloride 107 mmol/L (98-107) 04/17/23 04:00 Carbon Dioxide 24 mmol/L (21-32) 04/17/23 04:00 Anion Gap 9 (3-11) 04/17/23 04:00 BUN 34 mg/dl (6-23) H 04/17/23 04:00 Creatinine 1.88 mg/dl (0.6-1.4) H 04/17/23 04:00 Est Cr Clr Drug Dosing 24.9 ml/min 04/17/23 04:00 Est GFR ( Amer) 36.1 ml/min 04/17/23 04:00 Est GFR (Non-Af Amer) 31.2 ml/min 04/17/23 04:00 BUN/Creatinine Ratio 18.1 (10-20) 04/17/23 04:00 Glucose 111 mg/dl (70-99(Fasting)) H 04/17/23 04:00 Calcium 9.1 mg/dl (8.6-10.3) 04/17/23 04:00 Total Bilirubin 0.6 mg/dl (0.2-1.0) 04/17/23 04:00 AST 14 U/L (13-39) 04/17/23 04:00 ALT 11 U/L (7-52) 04/17/23 04:00 Alkaline Phosphatase 85 U/L (34-104) 04/17/23 04:00 Troponin I High Sens 31.4 pg/ml (0-20) H 04/17/23 04:00 Total Protein 7.4 gm/dl (6.0-8.3) 04/17/23 04:00 Albumin 3.8 gm/dl (3.4-5.0) 04/17/23 04:00 Globulin 3.6 gm/dl (2.5-4.0) 04/17/23 04:00 Albumin/Globulin Ratio 1.1 (0.9-2) 04/17/23 04:00 Lipase 37 U/L (11-82) 04/17/23 04:00 SARS-CoV-2, RNA, NAAT NEGATIVE (NEGATIVE) 04/17/23 04:48 ECG Additional Comments: EKG with NSR at 93, normal axis, OQ=345, QRS=90, IRw=035, no acute ischemic changes, RSR' pattern. Similar to prior study PG Care Time/CCT Total # of Minutes Spent Total Time Spent with Patient: Total time spent is greater than 50% in coordination of care (as documented) at patient's floor/unit and/or counseling patient: Coding Level of Care Code 63712 INT INP/OBS CARE 3/75MIN Diagnoses Chest pain R07.9 Dyslipidemia E78.5 HTN (hypertension) I10 CAD (coronary artery disease) I25.10 Diabetic ulcer of left foot E11.621; L97.529 Afib I48.2 Atrial fibrillation type: chronic Hypothyroidism E03.9 (6) Afib Atrial fibrillation type: chronic Qualified Code(s): I48.2 - Chronic atrial fibrillation
[2023-04-17 06:22] LABS: Appearance Urine Turbid (Clear); Color Urine Red; Specific Gravity Urine 1.019 (1.000-1.030)
[2023-04-17 06:25] LABS: Bacteria Urine Negative (Negative); Epithelial Cell Urine 0-5 /lpf (0-5); RBC Urine >30 /hpf (0-4)
--- NOTE | 2023-04-17 07:01 | XRay Report ---
SINGLE VIEW CHEST CLINICAL HISTORY: Atypical chest pain. Dyspnea FINDINGS: 2 AP, portable, upright chest radiographs are compared to study dated 11/22/2022. The patient is status post midline sternotomy. The heart is enlarged noting atherosclerotic calcification of the thoracic aorta. The pulmonary vasculature is noncongested. Chronic interstitial thickening is simila r to previous. There is bibasilar scarring/atelectasis. The lungs and pleural spaces are otherwise cl ear. No pneumothorax is seen. The skeletal structures are osteopenic. The bony thorax is grossly inta ct. IMPRESSION: Cardiomegaly with no active disease in the chest. ACT 112: Negative or not required by law. Electronically signed by: Jigar Acuña M.D. 04/17/2023 7:00 AM
[2023-04-17] MEDS ORDERED: GLUCOSE 10 TAB/TUBE PO PRN (11:41)
[2023-04-17] MEDS ORDERED: GLUCOSE 40% GEL 15 GM TUBE PO PRN (11:41)
[2023-04-17] MEDS ORDERED: ACETAMINOPHEN 325 MG TAB PO PRN (11:41)
[2023-04-17] MEDS ORDERED: ONDANSETRON INJ 2 MG/ML 2 ML VIAL IV PRN (11:41)
[2023-04-17] MEDS ORDERED: GLUCAGON FOR INJ 1 MG VIAL SQ PRN (11:41)
[2023-04-17] MEDS ORDERED: NITROGLYCERIN SL 0.4 MG/TAB TAB SL PRN (11:41)
[2023-04-17] MEDS ORDERED: CARBOHYDRATES FOR HYPOGLYCEMIA PO PRN (11:41)
[2023-04-17] MEDS ORDERED: DEXTROSE 50% 50 ML SYRINGE IV PRN (11:41)
[2023-04-17] MEDS: CLOPIDOGREL BISULFATE 75 MG TAB PO SCH (12:49)
[2023-04-17] MEDS: LOSARTAN POTASSIUM 25 MG TAB PO SCH (12:49)
[2023-04-17] MEDS: METOPROLOL TARTRATE 25 MG TAB PO SCH ×2 (12:50→20:58)
[2023-04-17] MEDS: LEVOTHYROXINE SODIUM 75 MCG TABLET PO SCH (12:50)
[2023-04-17] MEDS: ROSUVASTATIN CALCIUM 10 MG TAB PO SCH (12:50)
[2023-04-17] MEDS: INSULIN ASPART PER UNIT CHARGE SC SCH ×3 (12:54→20:40)
[2023-04-17] MEDS: LINEZOLID 600 MG TAB PO SCH ×2 (15:13→21:02)
[2023-04-17] MEDS: COLLAGENASE OINT 30 GM TUBE TOP SCH (15:14)
[2023-04-17] MEDS: AMIODARONE 200 MG TAB PO SCH (20:56)
[2023-04-17] MEDS: MEMANTINE HCL 10 MG TAB PO SCH (20:59)
--- NOTE | 2023-04-17 22:19 | XCELERA ---
[id number] \\[email or web address]_PDF_Reports\[id number]}___[id number].pdf
[2023-04-17] MEDS ORDERED: MELATONIN 3 MG TAB PO PRN (23:58)
[2023-04-17] MEDS ORDERED: LORazepam 2 MG/1 ML VIAL IV ONE (23:59)
[2023-04-18 05:20] LABS: Hematocrit (blood only) 34.1 % (42.0-52.0); Hemoglobin 11.3 g/dl (14.0-18.0); Mean Corpuscular Hemoglobin 29.4 pg (25.0-34.0); Mean Corpuscular Hgb Conc 33.1 g/dL (32.0-36.0); Mean Corpuscular Volume 88.6 fL (80.0-100.0); Mean Platelet Volume 9.8 fL (9.4-12.4); Platelet Count 154 K/uL (130-400); RDW Coefficient of Variation 15.3 % (11.5-14.5); RDW Standard Deviation 49.9 fL (36.4-46.3); Red Blood Count 3.85 M/uL (4.70-6.10); White Blood Count 6.64 K/ul (4.8-10.8)
[2023-04-18 05:38] LABS: Albumin Level 3.4 gm/dl (3.4-5.0); BUN Creatinine Ratio 19.9 (10-20); Bilirubin Direct 0.2 mg/dl (0-0.2); Calcium 8.7 mg/dl (8.6-10.3); Creatinine Clr Calc Pharmacy 23.8 ml/min; Est GFR (African American) 34.4 ml/min; Est GFR (Non-African American) 29.7 ml/min; Potassium 4.8 mmol/L (3.5-5.1); Total Protein 6.6 gm/dl (6.0-8.3)
[2023-04-18] MEDS: LEVOTHYROXINE SODIUM 75 MCG TABLET PO SCH (06:22)
[2023-04-18] MEDS: CLOPIDOGREL BISULFATE 75 MG TAB PO SCH (08:52)
[2023-04-18] MEDS: LINEZOLID 600 MG TAB PO SCH ×2 (08:53→20:47)
[2023-04-18] MEDS: COLLAGENASE OINT 30 GM TUBE TOP SCH (08:53)
[2023-04-18] MEDS: LOSARTAN POTASSIUM 25 MG TAB PO SCH (08:53)
[2023-04-18] MEDS: METOPROLOL TARTRATE 25 MG TAB PO SCH ×2 (08:56→20:49)
[2023-04-18] MEDS: ROSUVASTATIN CALCIUM 10 MG TAB PO SCH (08:56)
[2023-04-18] MEDS: INSULIN ASPART PER UNIT CHARGE SC SCH ×4 (08:59→20:23)
--- NOTE | 2023-04-18 11:34 | Urology Consultation ---
Date of Consultation April 18, 2023 Assessment & Plan (1) Hematuria: 87-year-old male with past medical history significant for CAD status post CABG and recent NSTEMI admitted for chest pain; developed hematuria. Urology consulted for evaluation of hematuria. Patient is afebrile with stable vitals. Today's labscreatinine 1.96, WBC 6.64, hemoglobin 11.3continue to trend labs. He reports he is voiding without difficulty and hematuria has cleared this am. No acute intervention warranted at this time. Recommend continue to monitor. We discussed hematuria in detail. We discussed that there can be several benign causes, however hematuria is never considered normal. We reviewed the work-up for gross hematuria, including urine culture, cytology, cystoscopy and imaging of the upper urinary tracts. This can be completed as an outpatient. Patient is agreeable. Cardiology recommends resume Eliquis. Urine has cleared per patient - can resume tonight or tomorrow and monitor. Gu will follow peripherally, contact us with any issues or concerns. History of Present Illness Attending Physician: Enoc Neal MD History of Present Illness This is an 87-year-old male with history of CAD status post CABG x3 in 1994, recent NSTEMI in November 2022 who presented to the emergency department on 04/17/2023 for evaluation of chest pain. On arrival, he was afebrile, hypertensive, heart rate in the 90s. Lab work showed WBC 6.79, hemoglobin 11.7, creatinine 1.88. Troponin mildly elevated, EKG with no acute ischemic changes. Patient was admitted for observation to [facility] with telemetry. Urology is consulted for evaluation of hematuria. Chart review: Afebrile Today's labscreatinine 1.96, WBC 6.64, hemoglobin 11.3 Urinalysis on arrival showed red, turbid urine, >30 RBC, 10-30 WBC, negative for bacteria. Otherwise not able to be interpreted due to color interference Urine culture 04/17 prelim no growth On linezolid for diabetic foot ulcer Cardiology consultation reviewed - He is on aspirin and Plavix. Cardiology recommends restarting apixaban and Plavix to be held. Patient seen and examined at bedside this morning. He is awake, alert, and resting in bed in no apparent distress. He denies dysuria, suprapubic or flank discomfort. He reports he is voiding spontaneously without difficulty, hematuria has cleared. He reports hematuria occurred prior to arrival and in the emergency department. Denies fever, chills, nausea or vomiting. He follows with Dr. Flores for BPH with LUTS. He is not on any medications for his prostate. He endorses stable voiding pattern with nocturia x2. He feels he is emptying his bladder well and denies other bothersome LUTS at this time. He denies personal or family history of stones or malignancy. Allergies Allergy/AdvReac Type Severity Reaction Status Date / Time Penicillins Allergy Unknown GENERALIZED Verified 04/06/23 14:06 AND FACIAL SWELLING shellfish derived Allergy Unknown GENERALIZED Verified 04/06/23 14:06 AND FACIAL SWELLING Sulfa (Sulfonamide Allergy Unknown GENERALIZED Verified 04/06/23 14:06 Antibiotics) AND FACIAL SWELLING Home Medications Medication Instructions Recorded Confirmed Type lancets (spotflux UltraSoft #50 ea 04/20/19 04/06/23 History Lancets) niacin 500 mg tablet 500 mg PO DAILY 12/24/21 04/17/23 History apixaban 2.5 mg tablet 2.5 mg PO BID #180 tabs 07/05/22 04/17/23 Rx memantine 10 mg tablet (Namenda) 10 mg PO QPM 7 days #30 tabs 09/28/22 04/17/23 Rx collagenase clostridium histo. 250 1 applic topical DAILY 14 days #30 11/11/22 04/17/23 Rx unit/gram topical ointment (Santyl) grams nitroglycerin 0.4 mg sublingual 0.4 mg sublingual Q5M PRN chest 11/25/22 04/17/23 Rx tablet pain #25 tabs amiodarone 200 mg tablet (Pacerone) 100 mg PO QPM #90 tabs 11/26/22 04/17/23 Rx cholecalciferol (vitamin D3) 50 5,000 unit PO QAM 11/26/22 04/17/23 History mcg (2,000 unit) capsule metformin 1,000 mg tablet,extended 500 mg PO DAILY #30 tabs 11/26/22 04/17/23 Rx release 24hr blood sugar diagnostic #100 ea 11/29/22 04/06/23 Rx blood-glucose meter (410 LabsTouch #1 ea 11/29/22 04/06/23 Rx Ultra2 Meter) ferrous sulfate 27 mg iron tablet 27 mg PO QAM 01/20/23 04/17/23 History levothyroxine 75 mcg tablet 75 mcg PO DAILY #90 tabs 01/31/23 04/17/23 Rx losartan 25 mg tablet 25 mg PO DAILY #90 tabs 01/31/23 04/17/23 Rx metoprolol tartrate 25 mg tablet 25 mg PO BID #60 tabs 02/22/23 04/17/23 Rx gabapentin 100 mg capsule 100 mg PO .COMPLEX #150 caps 03/10/23 04/17/23 Rx rosuvastatin 10 mg tablet 10 mg PO DAILY #90 tabs 03/17/23 04/17/23 Rx clopidogrel 75 mg tablet 75 mg PO DAILY #30 tabs 03/29/23 04/17/23 Rx gentamicin 0.1 % topical ointment 1 applic topical DAILY 14 days #30 04/11/23 04/17/23 Rx grams linezolid 600 mg tablet 600 mg PO BID 10 days #20 tabs 04/11/23 04/17/23 Rx Patient History Medical History Afib follows w/ Dr Nugent- last visit 4-5 mos ago Anemia Anticoagulant long-term use eliquis CAD (coronary artery disease) s/p CABG x 3 (1994) CKD (chronic kidney disease), stage III Dementia Diabetic ulcer of right foot Difficult airway for intubation Right ELLEN: 03/24/17 - Elective Glidescope #4 due to limited ROM, ETT #7.5, HiLo Straight, Grade 2 View with Large Epiglottis (no specific indication why SAB not used) DM II (diabetes mellitus, type II), controlled Dyslipidemia HTN (hypertension) Hx of non-ST elevation myocardial infarction (NSTEMI) Hypothyroidism On amiodarone therapy Osteomyelitis right heel PAD (peripheral artery disease) s/p right SFA angioplasty Peripheral arterial disease Surgical History History of appendectomy History of cardiac cath 1994 -- subsequent CABG x3 History of cardioversion x3 - most recent at [facility] 2018 History of colonoscopy History of fracture COLLAR BONE/SURGERY FOR History of hernia surgery RIGHT INGUINAL History of hip surgery X2 FOR DISLOCATION RIGHT (POST RIGHT ELLEN) History of incision and drainage Right heel I&D, antibiotic beads: 04/06/19: SAB x 1 at L3/L4 at [facility] History of neck surgery C4-5 "CADAVER BONE" History of repair of left rotator cuff History of tonsillectomy History of total right hip arthroplasty History of vascular surgery right heel vascular procedure (Dr. Barbour) Hx of CABG (~1994) CABG x 3 (1994) S/P cardiac cath S/P closed reduction of dislocated total hip prosthesis Family History Mother Alzheimer disease Father Arthritis Denies family history of Ovarian cancer Prostate cancer Myocardial infarction Breast cancer Colorectal cancer Social History Smoking Status: Never smoker Second Hand Exposure: No; Do You Dip or Chew Tobacco: No; Hx Alcohol Use: No Hx Substance Use: No Preferred Language: Italian Communication Ability: Effective Visual Impairment: No Limitations Hearing Ability: Normal Heel Room Supervisor Required: No Beliefs That Will Affect Care: None marital status: Current Living Situation: Spouse 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 Feels Safe at Home: Yes Childhood Exposure to Second-Hand Smoke: No Diet: regular caffeine: Yes Dental Care, Regularly: Yes Physical Activity Frequency: Daily Seatbelt Use: always Sunscreen Use: No Do you think of yourself as: straight/heterosexual Gender Identity: Male Assistive Devices: Walker Review of Systems Review of Systems: All systems reviewed & are unremarkable except as noted in HPI & below Physical Exam Physical Exam: General: well-appearing, no acute distress HEENT: Normocephalic, mucous membranes moist Pulmonary: Nonlabored respirations Abdomen: Nondistended, soft and nontender Extremities: Moves all 4 spontaneously Neuro: No gross deficits Psych: alert and oriented, normal mood Skin: Warm, dry, no rashes noted Results & Data Vital Signs (Past 12 Hours) Vital Signs Temp Pulse Pulse Resp BP Pulse Ox O2 Del Method 04/18/23 08:01 36.6 C 78 18 151/78 H 96 Room Air 04/18/23 08:00 57 L 04/18/23 03:56 36.6 C 75 17 103/64 95 Room Air PG Care Time/CCT Total # of Minutes Spent Total Time Spent with Patient: Total time spent is greater than 50% in coordination of care (as documented) at patient's floor/unit and/or counseling patient: Coding Level of Care Code 89473 INT INP/OBS CARE 2/55MIN Diagnoses Hematuria R31.9 Time Spent (min) 60
--- NOTE | 2023-04-18 11:46 | Cardiology Consultation ---
Date of Consultation April 18, 2023 Assessment & Plan (1) CAD (coronary artery disease): post 3V CABG (patent DIAZ to LAD with moderate anastomotic lesion, SVG to OM with mod-sev distal graft lesion) 2. Atrial flutteron amiodarone, Eliquis 3. Type 2 diabetes 4. PADstenting of right SFA 01/2023 5. Right great toe DFU 6. Stage IV CKD 7. Moderate ASquestion LVOT component 8. Mild pulmonary hypertension 9. Anemia 10. Hematuria Patient admitted with acute onset recurrent chest discomfort reminiscent of what he had 4 months ago. HS TropI/ECG/echo reassuring. Suspicion for high risk ACS is low and unlikely to have new modifiable CAD. No need for repeat cardiac catheterization at this time. Question whether patient's chest symptoms related to his atypical atrial flutter with increased symptoms when in "3-1" conduction and heart rate in the 90s. Potentially may not tolerate higher heart rates with his chronic multivessel CAD and moderate . Also may have some component from possible dynamic LVOT obstruction. Patient not really interested in repeat attempted cardioversion, mod ifying/stopping antiarrhythmic or atrial flutter ablation. Tolerating beta- steph now that in persistent atrial flutter. For now goal will be to maintain atrial flutter with lower heart rate. Recommendations: Increase metoprolol to 37.5 mg twice daily Wishes to continue current amiodarone 100 mg daily Resume Eliquis 2.5 mg twice daily when okay from a urology standpoint Discontinue clopidogrel Discussed starting Imdur but previously tried last hospitalization without improvement and will avoid with some question of LVOT obstruction Continue current statin We will follow History of Present Illness Attending Physician: Enoc Neal MD History of Present Illness Mr. Li is a very pleasant 87-year-old man with a history of coronary artery disease post three-vessel CABG 1994 (DIAZ to LAD, SVG to OM, SVG to PDA), persistent atrial fibrillation/flutter on amiodarone, Eliquis, type 2 diabetes, stage IV CKD, peripheral arterial disease post repeated right SFA endovascular interventions who was admitted with acute stuttering chest pain over the preceding day. Patient was previously hospitalized 11/2022 in the setting of acute chest pain/NSTEMI with peak HS TropI of 66. Underwent repeat cardiac catheterization showing stable multivessel chronic CAD. Had 2 patent grafts with questionable stenosis in SVG to small OM and moderate disease at DIAZ to LAD anastomosis. Medical management recommended and has been chest pain free up until present. Has been dealing with a right great toe diabetic foot ulcer. Vascular testing noted recurrent distal SFA/proximal popliteal occlusion with two-vessel distal runoff ([employer], peroneal). Underwent angioplasty with IVL and stenting 01/24/2023. Since procedure has been making slow progress with continued wound clinic care including HBO. Tuesday evening, 2 days ago, developed pain going across his chest around 10 PM while sitting watching TV. Prior to event had been feeling well. Does report had taken in more salt than usual that day. Pain very similar to what he had back in November and eventually went away. Had recurrent symptoms early the next morning and EMS contacted. Pain improved with sublingual nitroglycerin in route. Hypertensive on arrival to the 170s. ECG showed atypical atrial flutter with no significant ST changes. Persistent atrial flutter 50s to 90s on telemetry. HS TropI flat 31-29. Repeat echocardiogram showed hyperdynamic LV with no wall motion abnormality, moderate LVH, questionable LVOT obstruction and moderate Today reports feeling well. No additional chest symptoms overnight. Allergies Allergy/AdvReac Type Severity Reaction Status Date / Time Penicillins Allergy Unknown GENERALIZED Verified 04/06/23 14:06 AND FACIAL SWELLING shellfish derived Allergy Unknown GENERALIZED Verified 04/06/23 14:06 AND FACIAL SWELLING Sulfa (Sulfonamide Allergy Unknown GENERALIZED Verified 04/06/23 14:06 Antibiotics) AND FACIAL SWELLING Home Medications Medication Instructions Recorded Confirmed Type lancets (OneTouch UltraSoft #50 ea 04/20/19 04/06/23 History Lancets) niacin 500 mg tablet 500 mg PO DAILY 12/24/21 04/17/23 History apixaban 2.5 mg tablet 2.5 mg PO BID #180 tabs 07/05/22 04/17/23 Rx memantine 10 mg tablet (Namenda) 10 mg PO QPM 7 days #30 tabs 09/28/22 04/17/23 Rx collagenase clostridium histo. 250 1 applic topical DAILY 14 days #30 11/11/22 04/17/23 Rx unit/gram topical ointment (Santyl) grams nitroglycerin 0.4 mg sublingual 0.4 mg sublingual Q5M PRN chest 11/25/22 04/17/23 Rx tablet pain #25 tabs amiodarone 200 mg tablet (Pacerone) 100 mg PO QPM #90 tabs 11/26/22 04/17/23 Rx cholecalciferol (vitamin D3) 50 5,000 unit PO QAM 11/26/22 04/17/23 History mcg (2,000 unit) capsule metformin 1,000 mg tablet,extended 500 mg PO DAILY #30 tabs 11/26/22 04/17/23 Rx release 24hr blood sugar diagnostic #100 ea 11/29/22 04/06/23 Rx blood-glucose meter (OneTouch #1 ea 11/29/22 04/06/23 Rx Ultra2 Meter) ferrous sulfate 27 mg iron tablet 27 mg PO QAM 01/20/23 04/17/23 History levothyroxine 75 mcg tablet 75 mcg PO DAILY #90 tabs 01/31/23 04/17/23 Rx losartan 25 mg tablet 25 mg PO DAILY #90 tabs 01/31/23 04/17/23 Rx metoprolol tartrate 25 mg tablet 25 mg PO BID #60 tabs 02/22/23 04/17/23 Rx gabapentin 100 mg capsule 100 mg PO .COMPLEX #150 caps 03/10/23 04/17/23 Rx rosuvastatin 10 mg tablet 10 mg PO DAILY #90 tabs 03/17/23 04/17/23 Rx clopidogrel 75 mg tablet 75 mg PO DAILY #30 tabs 03/29/23 04/17/23 Rx gentamicin 0.1 % topical ointment 1 applic topical DAILY 14 days #30 04/11/23 04/17/23 Rx grams linezolid 600 mg tablet 600 mg PO BID 10 days #20 tabs 04/11/23 04/17/23 Rx Patient History Medical History Afib follows w/ Dr Nugent- last visit 4-5 mos ago Anemia Anticoagulant long-term use eliquis CAD (coronary artery disease) s/p CABG x 3 (1994) CKD (chronic kidney disease), stage III Dementia Diabetic ulcer of right foot Difficult airway for intubation Right ELLEN: 03/24/17 - Elective Glidescope #4 due to limited ROM, ETT #7.5, HiLo Straight, Grade 2 View with Large Epiglottis (no specific indication why SAB not used) DM II (diabetes mellitus, type II), controlled Dyslipidemia HTN (hypertension) Hx of non-ST elevation myocardial infarction (NSTEMI) Hypothyroidism On amiodarone therapy Osteomyelitis right heel PAD (peripheral artery disease) s/p right SFA angioplasty Peripheral arterial disease Surgical History History of appendectomy History of cardiac cath 1994 -- subsequent CABG x3 History of cardioversion x3 - most recent at [facility] 2017 History of colonoscopy History of fracture COLLAR BONE/SURGERY FOR History of hernia surgery RIGHT INGUINAL History of hip surgery X2 FOR DISLOCATION RIGHT (POST RIGHT ELLEN) History of incision and drainage Right heel I&D, antibiotic beads: 04/06/19: SAB x 1 at L3/L4 at [facility] History of neck surgery C4-5 "CADAVER BONE" History of repair of left rotator cuff History of tonsillectomy History of total right hip arthroplasty History of vascular surgery right heel vascular procedure (Dr. Barbour) Hx of CABG (~1994) CABG x 3 (1994) S/P cardiac cath S/P closed reduction of dislocated total hip prosthesis Family History Mother Alzheimer disease Father Arthritis Denies family history of Ovarian cancer Prostate cancer Myocardial infarction Breast cancer Colorectal cancer Social History Smoking Status: Never smoker Second Hand Exposure: No; Do You Dip or Chew Tobacco: No; Hx Alcohol Use: No Hx Substance Use: No Preferred Language: Portuguese Communication Ability: Effective Visual Impairment: No Limitations Hearing Ability: Normal Hoe Runner Required: No Beliefs That Will Affect Care: None marital status: Current Living Situation: Spouse 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 Feels Safe at Home: Yes Childhood Exposure to Second-Hand Smoke: No Diet: regular caffeine: Yes Dental Care, Regularly: Yes Physical Activity Frequency: Daily Seatbelt Use: always Sunscreen Use: No Do you think of yourself as: straight/heterosexual Gender Identity: Male Assistive Devices: Cane, Glasses and Walker Review of Systems Review of Systems: All systems reviewed & are unremarkable except as noted in HPI & below Physical Exam Physical Exam: General: Comfortable, no acute distress Eyes: Sclerae anicteric Lungs: Clear to auscultation bilaterally, no rhonchi or wheezes Cardiac:Distant heart sounds, irregular irregular, 2out of 6 systolic ejection murmur. No JVD Abdomen: Soft, nontender Neuro: Nonfocal Psych: Alert orient x3, normal affect and mood Extremities/Vascular: -- 2+ radial bilaterally -- Trace bilateral lower extremity edema left greater than right -- Right DP pulse absent. PT pulse present, diminished. Normal capillary refill on right. Right great toe ulcer dressed with no surrounding erythema. No odor -- Left lower extremity diminished DP/PT. Cap refill reduced -- Callus on right heel, no skin breakdown Results & Data Vital Signs (Past 12 Hours) Vital Signs Temp Pulse Pulse Resp BP Pulse Ox O2 Del Method 04/18/23 08:01 97.9 F 78 18 151/78 H 96 Room Air 04/18/23 08:00 57 L 04/18/23 03:56 97.9 F 75 17 103/64 95 Room Air 04/17/23 23:34 128/78 04/17/23 23:20 97.5 F L 83 14 123/75 96 Room Air PG Care Time/CCT Total # of Minutes Spent Total Time Spent with Patient: Total time spent is greater than 50% in coordination of care (as documented) at patient's floor/unit and/or counseling patient: Coding Level of Care Code 63830 INT INP/OBS CARE 75MIN Diagnoses CAD (coronary artery disease) I25.10
--- NOTE | 2023-04-18 14:33 | Hospitalist Progress Note ---
Date of Service April 18, 2023 Assessment & Plan (1) Chest pain: Plan: 87yo male with known CAD s/p CABG x 3V in 1994, recent NSTEMI in November 2022 presenting with chest pain that woke him from sleep. Troponin is mildly elevated at 31.4. EKG with no acute ischemic changes. Patient with some ongoing chest soreness and tightness no reproducible 2 D ECHO showed hyperdynamic systolic function, EF>70%, mild Pulm HTN -Has been evaluated by Cardiology, no plans for cardiac cath for now -Increase metoprolol to 37.5MG BID, continue ASA, Statin,Apixaban when ok by Urology, stop plavix -Appreciate cardiology (2) Dyslipidemia: Plan: Chronic. Stable. -Continue Crestor (3) HTN (hypertension): Plan: Blood pressure stable. 121/62 -Continue Losartan -Continue Metoprolol -Monitor (4) CAD (coronary artery disease): Plan: With history of CABG x 3V in 1994, peripheral arterial disease, recent NSTEMI in November 2022 presenting with chest pain as above. -Continue Apixaban when ok by Urology, Rosuvastatin, Metoprolol and Losartan. d/c Plavix (5) Diabetic ulcer of left foot: Plan: Patient with diabetic ulcer, presently being treated with Linezolid and wound care. No evidence of systemic infection -Linezolid -Collagenase -Wound care (6) Afib: Plan: Presently in NSR. Anticoagulated with Apixaban -Continue Amiodarone -Continue Apixaban (7) Hypothyroidism: Plan: Chronic. TSH WNL on 04/01/23 at 2.081 -Synthroid (8) Hematuria: Plan: Awaiting evaluation from Urology Hb stable Plan continue hospitalization Admission and Anticipated Discharge Date Admission Date: April 17, 2023 Subjective patient seen and examined, still has a little chest discomfort, but said no sob Review of Systems Review of Systems: All systems reviewed are negative, apart from the ones contained in the history. Physical Exam Physical Exam: The patient is awake, alert and oriented 3, well developed and well nourished, normocephalic and atraumatic, lying in bed and in no acute distress. HEENT--PERRL, EOMI, mucous membranes and oropharynx mildly dry Neck--supple. No JVD. No bruits. Thyroid normal, trachea midline, no adenopathy. Heart--normal S1 and S2. No murmurs, rubs or gallops. Lungs--clear bilaterally, no respiratory distress, no accessory muscle use. Abdomen--normal bowel sounds and soft. Mild epigastric and left sided abdominal pain Extremities--no cyanosis or clubbing. No edema. Dermatologic--normal skin turgor, normal color, no abnormal lymph nodes, no rash. Neurologic--cranial nerves II through XII grossly intact. Rheumatologic--normal range of motion. Psychiatric--normal affect. Results & Data Results & Data Vital Signs (Past 12 Hours) Vital Signs Temp Pulse Pulse Resp BP Pulse Ox O2 Del Method 04/18/23 11:27 97.9 F 77 16 121/62 97 Room Air 04/18/23 08:01 97.9 F 78 18 151/78 H 96 Room Air 04/18/23 08:00 57 L 04/18/23 03:56 97.9 F 75 17 103/64 95 Room Air PG Care Time/CCT Total # of Minutes Spent Total Time Spent with Patient: Total time spent is greater than 50% in coordination of care (as documented) at patient's floor/unit and/or counseling patient: Coding Level of Care Code 75311 SUB INP/OBS CARE 2/35MIN Diagnoses Chest pain R07.9 Dyslipidemia E78.5 HTN (hypertension) I10 CAD (coronary artery disease) I25.10 Diabetic ulcer of left foot E11.621; L97.529 Afib I48.2 Atrial fibrillation type: chronic Hypothyroidism E03.9 Hematuria R31.9 Time Spent (min) 35 (6) Afib Atrial fibrillation type: chronic Qualified Code(s): I48.2 - Chronic atrial fibrillation
[2023-04-18] MEDS: MEMANTINE HCL 10 MG TAB PO SCH (20:47)
[2023-04-18] MEDS: APIXABAN 2.5 MG TAB PO SCH (20:47)
[2023-04-18] MEDS: AMIODARONE 200 MG TAB PO SCH (20:47)
[2023-04-19] MEDS: LEVOTHYROXINE SODIUM 75 MCG TABLET PO SCH (06:22)
--- NOTE | 2023-04-19 07:03 | Electrocardiogram Report ---
Test Reason : Blood Pressure : / mmHG Vent. Rate : 093 BPM Atrial Rate : 093 BPM P-R Int : 206 ms QRS Dur : 090 ms QT Int : 386 ms P-R-T Axes : 070 059 -11 degrees QTc Int : 479 ms Atrial flutter RSR' or QR pattern in V1 suggests right ventricular conduction delay Nonspecific ST abnormality Abnormal ECG When compared with ECG of 23-NOV-2022 08:40, No significant change Confirmed by Keo Nugent ([id number]) on 04/19/2023 7:02:57 AM Referred By: Munir Andino Confirmed By:Keo Nugent
[2023-04-19] MEDS: METOPROLOL TARTRATE 25 MG TAB PO SCH ×2 (08:34→19:28)
[2023-04-19] MEDS: ROSUVASTATIN CALCIUM 10 MG TAB PO SCH (08:34)
[2023-04-19] MEDS: LOSARTAN POTASSIUM 25 MG TAB PO SCH (08:34)
[2023-04-19] MEDS: APIXABAN 2.5 MG TAB PO SCH ×2 (08:34→19:25)
[2023-04-19] MEDS: LINEZOLID 600 MG TAB PO SCH ×2 (08:34→19:25)
[2023-04-19] MEDS: INSULIN ASPART PER UNIT CHARGE SC SCH ×4 (08:35→20:23)
--- NOTE | 2023-04-19 14:25 | Hospitalist Progress Note ---
Date of Service April 19, 2023 Assessment & Plan (1) Chest pain: Plan: 87yo male with known CAD s/p CABG x 3V in 1994, recent NSTEMI in November 2022 presenting with chest pain that woke him from sleep. Troponin is mildly elevated at 31.4. EKG with no acute ischemic changes. Patient with some ongoing chest soreness and tightness not reproducible, he thinks it may be due to his 'anxiety' 2 D ECHO showed hyperdynamic systolic function, EF>70%, mild Pulm HTN -Has been evaluated by Cardiology, no plans for cardiac cath for now -Increase metoprolol to 37.5MG BID, continue ASA, Statin,Apixaban when ok by Urology, stop plavix -Appreciate cardiology (2) Dyslipidemia: Plan: Chronic. Stable. -Continue Crestor (3) HTN (hypertension): Plan: Blood pressure stable. 121/62 -Continue Losartan -Continue Metoprolol -Monitor (4) Diabetic ulcer of left foot: Plan: Patient with diabetic ulcer, presently being treated with Linezolid and wound care. No evidence of systemic infection -Continue Linezolid -Continue gentamicin ointment (brought from home) -Wound care (5) CAD (coronary artery disease): Plan: With history of CABG x 3V in 1994, peripheral arterial disease, recent NSTEMI in November 2022 presenting with chest pain as above. -Continue Apixaban when ok by Urology, Rosuvastatin, Metoprolol and Losartan. d/c Plavix (6) Afib: Plan: Presently in NSR. Anticoagulated with Apixaban -Continue Amiodarone -Continue Apixaban (7) Hypothyroidism: Plan: Chronic. TSH WNL on 04/01/23 at 2.081 -Synthroid (8) Hematuria: Plan: Awaiting evaluation from Urology Hb stable Plan continue hospitalization, d/c when ok by cardiology Admission and Anticipated Discharge Date Admission Date: April 17, 2023 Subjective patient seen and examined, still has a little chest discomfort, but said no sob, he thinks it may be due to anxiety Review of Systems Review of Systems: All systems reviewed are negative, apart from the ones contained in the history. Physical Exam Physical Exam: The patient is awake, alert and oriented 3, well developed and well nourished, normocephalic and atraumatic, lying in bed and in no acute distress. HEENT--PERRL, EOMI, mucous membranes and oropharynx mildly dry Neck--supple. No JVD. No bruits. Thyroid normal, trachea midline, no adenopathy. Heart--normal S1 and S2. No murmurs, rubs or gallops. Lungs--clear bilaterally, no respiratory distress, no accessory muscle use. Abdomen--normal bowel sounds and soft. Mild epigastric and left sided abdominal pain Extremities--no cyanosis or clubbing. No edema. Dermatologic--normal skin turgor, normal color, no abnormal lymph nodes, no rash. Neurologic--cranial nerves II through XII grossly intact. Rheumatologic--normal range of motion. Psychiatric--normal affect. Results & Data Results & Data Vital Signs (Past 12 Hours) Vital Signs Temp Pulse Pulse Resp BP Pulse Ox O2 Del Method 04/19/23 11:00 97.9 F 90 18 133/79 98 Room Air 04/19/23 08:10 79 04/19/23 07:42 97.9 F 86 18 146/89 H 96 Room Air 04/19/23 02:44 97.9 F 78 20 158/91 H 95 Room Air PG Care Time/CCT Total # of Minutes Spent Total Time Spent with Patient: Total time spent is greater than 50% in coordination of care (as documented) at patient's floor/unit and/or counseling patient: Coding Level of Care Code 64867 SUB INP/OBS CARE 2/35MIN Diagnoses Chest pain R07.9 Dyslipidemia E78.5 HTN (hypertension) I10 Diabetic ulcer of left foot E11.621; L97.529 CAD (coronary artery disease) I25.10 Afib I48.2 Atrial fibrillation type: chronic Hypothyroidism E03.9 Hematuria R31.9 Time Spent (min) 35 (6) Afib Atrial fibrillation type: chronic Qualified Code(s): I48.2 - Chronic atrial fibrillation
[2023-04-19] MEDS: AMIODARONE 200 MG TAB PO SCH (19:24)
[2023-04-19] MEDS: MEMANTINE HCL 10 MG TAB PO SCH (19:26)
[2023-04-20] MEDS: LEVOTHYROXINE SODIUM 75 MCG TABLET PO SCH (06:01)
[2023-04-20] MEDS: METOPROLOL TARTRATE 25 MG TAB PO SCH (08:16)
[2023-04-20] MEDS: LOSARTAN POTASSIUM 25 MG TAB PO SCH (08:17)
[2023-04-20] MEDS: APIXABAN 2.5 MG TAB PO SCH (08:17)
[2023-04-20] MEDS: ROSUVASTATIN CALCIUM 10 MG TAB PO SCH (08:17)
[2023-04-20] MEDS: LINEZOLID 600 MG TAB PO SCH ×2 (08:17→22:01)
[2023-04-20] MEDS: INSULIN ASPART PER UNIT CHARGE SC SCH ×4 (08:21→21:59)
--- NOTE | 2023-04-20 11:06 | Cardiology Progress Note ---
Date of Service April 20, 2023 Assessment & Plan (1) CAD (coronary artery disease): Plan: post 3V CABG (patent DIAZ to LAD with moderate anastomotic lesion, SVG to OM with mod-sev distal graft lesion) 2. Atrial flutteron amiodarone, Eliquis 3. Type 2 diabetes 4. PADstenting of right SFA 01/2023 5. Right great toe DFU 6. Stage IV CKD 7. Moderate ASquestion LVOT component 8. Mild pulmonary hypertension 9. Anemia 10. Hematuria Remains chest pain free. Persistent Aflutter, primarily ~90 No signs of heart failure on exam Slightly more confused today ?loose/dark BM yesterday -- No plans for additional cardiac testing at this time -- Increase metoprolol to 50mg BID -- Continue current amiodarone -- Continue Eliquis - repeat lab pending -- Off clopidogrel/ASA going forward -- On home ARB/statin -- From a cardiac standpoint can be discharged with other medical issues stable Admission and Anticipated Discharge Date Admission Date: April 20, 2023 Subjective Feeling well today. Denies any chest pain. No shortness of breath. Reports 1 loose stool, darkish in color. Telemetry reviewed-- remains in atrial flutter, primarily around 90 bpm Review of Systems Review of Systems: All systems reviewed & are unremarkable except as noted in HPI & below Physical Exam Physical Exam: General: Comfortable, no acute distress Eyes: Sclerae anicteric Lungs: Clear to auscultation bilaterally Cardiac:Distant heart sounds, irregular irregular, 3 out of 6 systolic ejection murmur at RLSB Abdomen: Soft, nontender Neuro: Nonfocal Psych: Alert orient x3, normal affect and mood Extremities/Vascular: -- 2+ radial bilaterally -- Trace lower extremity edema left greater than right -- Right DP pulse absent. PT pulse diminished. Sluggish capillary refill on right. Right great toe ulcer dressed with no surrounding erythema. No odor -- Left lower extremity diminished DP/PT. -- Callus on right heel, no skin breakdown Results & Data Vital Signs (Past 12 Hours) Vital Signs Temp Pulse Pulse Resp BP Pulse Ox O2 Del Method 04/20/23 08:00 Room Air 04/20/23 08:22 97.9 F 90 17 132/82 96 Room Air 04/20/23 08:01 90 07/05/23 03:10 97.7 F 83 18 144/84 H 97 Room Air 04/19/23 23:46 69 04/19/23 23:07 97.5 F L 70 18 138/79 97 Room Air PG Care Time/CCT Total # of Minutes Spent Total Time Spent with Patient: Total time spent is greater than 50% in coordination of care (as documented) at patient's floor/unit and/or counseling patient: Coding Level of Care Code 57814 SUB INP/OBS CARE 2/35MIN Diagnoses CAD (coronary artery disease) I25.10
[2023-04-20 11:08] LABS: Basophils # (auto) 0.06 K/uL (0-0.2); Basophils % (auto) 0.8 %; Eosinophils # (auto) 0.14 K/uL (0-0.50); Eosinophils % (auto) 1.9 %; Hematocrit (blood only) 36.3 % (42.0-52.0); Immature Granulocytes # (auto) 0.03 K/uL (0.01-0.20); Immature Granulocytes % (auto) 0.4 %; Lymphocytes # (auto) 0.87 K/uL (1.2-3.4); Lymphocytes % (auto) 11.8 %; Mean Corpuscular Hemoglobin 29.3 pg (25.0-34.0); Mean Corpuscular Hgb Conc 33.1 g/dL (32.0-36.0); Mean Corpuscular Volume 88.5 fL (80.0-100.0); Mean Platelet Volume 9.5 fL (9.4-12.4); Monocytes # (auto) 0.58 K/uL (0.11-0.59); Monocytes % (auto) 7.9 %; Neutrophils # (auto) 5.68 K/uL (1.40-6.50); Neutrophils % (auto) 77.2 %; Platelet Count 160 K/uL (130-400); RDW Coefficient of Variation 15.1 % (11.5-14.5); RDW Standard Deviation 48.3 fL (36.4-46.3); White Blood Count 7.36 K/ul (4.8-10.8)
[2023-04-20 11:14] LABS: BUN Creatinine Ratio 26.3 (10-20); Calcium 9.2 mg/dl (8.6-10.3); Creatinine Clr Calc Pharmacy 26.6 ml/min; Est GFR (African American) 39.4 ml/min; Potassium 4.4 mmol/L (3.5-5.1)
[2023-04-20] MEDS: GENTAMICIN EXT SCH (15:49)
[2023-04-20] MEDS ORDERED: METOPROLOL TARTRATE 25 MG TAB PO ONE (15:52)
--- NOTE | 2023-04-20 17:39 | Hospitalist Progress Note ---
Date of Service April 20, 2023 Assessment & Plan (1) Chest pain: Plan: 87yo male with known CAD s/p CABG x 3V in 1994, recent NSTEMI in November 2022, moderate aortic stenosis, HTN, PAD s/p right SFA stent, DM 2, CKD stage III-IV, presenting with chest pain that woke him from sleep. Troponin is mildly elevated at 31.4 and then trended downward on serial checks. EKG with no acute ischemic changes. Was in atrial flutter on admission ECHO showed hyperdynamic systolic function, EF>70%, moderate aortic stenosis, and mild Pulm HTN Appreciate cardiology consultation-suspect angina secondary to faster rates with atrial flutter No further chest pain Rate control is the treatment goal at this point -Continue to increase metoprolol now to 50 MG BID (2) Atrial flutter: Plan: In atrial flutter since admission Cardiology feels this is causing increased rates which is causing angina as above Rate control strategy-increasing dose of metoprolol again today to 50 Mg p.o. twice daily Monitor on telemetry Keep electrolytes replete (3) Hematuria: Plan: New onset hematuria during this admission, resolved temporarily with holding El iquis Plavix has been permanently discontinued Eliquis was restarted on 04/18 and now with recurrence of hematuria on the morning of 04/20 Seen by urology, plan for outpatient work-up He is able to void, no clots in the urine, monitor for postvoid residuals Hold Eliquis again on 04/20 Monitor for improvement Follow-up with urology as an outpatient (4) CAD (coronary artery disease): Plan: With history of CABG x 3V in 1994, peripheral arterial disease, recent NSTEMI in November 2022 presenting with chest pain as above. -Continue Rosuvastatin, Metoprolol at increasing doses, and Losartan. d/c Plavix permanently as per cardiology (5) Diabetic ulcer of left foot: Plan: Patient with diabetic ulcer, presently being treated with Linezolid and wound care. No evidence of systemic infection -Continue Linezolid -Continue gentamicin ointment (brought from home)-ordered today -Wound care (6) HTN (hypertension): Plan: Blood pressure normal -Continue Losartan -Continue Metoprolol and increased dose to 50 Mg p.o. twice daily for rate control as above -Monitor (7) Hypothyroidism: Plan: Chronic. TSH WNL on 04/01/23 at 2.081 -Continue home dose of Synthroid (8) Dyslipidemia: Plan: Chronic. Stable. -Continue Crestor (9) PAD (peripheral artery disease): Plan: With a history of right SFA angioplasty and stent Cardiology stopped Plavix Continue Eliquis when hematuria improves Continue statin (10) Aortic stenosis: Plan: Moderate on echo Follow as an outpatient (11) CKD (chronic kidney disease), stage III: Plan: Creatinine at baseline at 1.7 -Avoid nephrotoxins -renally dose meds when appropriate -follow BMP Plan Disposition-continued stay on medical floor telemetry-monitor for improvement of hematuria and monitoring of heart rates with increasing metoprolol. Hopeful for discharge to home tomorrow DVT prophylaxis-adryan Hyatt Discussed care with at the bedside Admission and Anticipated Discharge Date Admission Date: April 20, 2023 Anticipated date of discharge: 04/21/23 Subjective Patient had recurrence of hematuria this morning but he is able to completely empty his bladder. Denies abdominal pain. Denies any chest pains. He reports he had 2 bowel movements today and he thought they were black but the nurse reported she looked at them directly and the stool itself was brown but there was blood in the toilet water from urination. Telemetry with atrial flutter, rates in the 70s to 80s Physical Exam Constitutional: WD/WN, vitals as above ENMT: Ears: + hearing impairment Respiratory: normal respiratory effort, lungs clear to auscultation Cardiovascular: Rate/Rhythm: regular rate and + irregularly irregular Heart Sounds: + murmur (2/6 JENNIFER at the RUSB) Extremities: no edema Gastrointestinal (Abdomen): normal bowel sounds, soft, nontender, no hepatosplenomegaly Psychiatric: Orientation: alert, oriented x 3 and cooperative Results & Data Results & Data Vital Signs (Past 12 Hours) Vital Signs Temp Pulse Pulse Resp BP Pulse Ox O2 Del Method 04/20/23 16:24 36.6 C 87 17 111/74 97 Room Air 04/20/23 15:36 69 04/20/23 11:29 36.6 C 85 18 111/70 96 Room Air 04/20/23 08:00 Room Air 04/20/23 08:22 36.6 C 90 17 132/82 96 Room Air 04/20/23 08:01 90 Laboratory Results CBC, BMP reviewed Urine culture no growth PG Care Time/CCT Total # of Minutes Spent Total Time Spent with Patient: Total time spent is greater than 50% in coordination of care (as documented) at patient's floor/unit and/or counseling patient: Coding Level of Care Code 30457 SUB INP/OBS CARE 3/50MIN Diagnoses Chest pain R07.9 Atrial flutter I48.92 Hematuria R31.9 CAD (coronary artery disease) I25.10 Diabetic ulcer of left foot E11.621; L97.529 HTN (hypertension) I10 Hypothyroidism E03.9 Dyslipidemia E78.5 PAD (peripheral artery disease) I73.9 Aortic stenosis I35.0 CKD (chronic kidney disease), stage III N18.3
[2023-04-20] MEDS: MEMANTINE HCL 10 MG TAB PO SCH (22:01)
[2023-04-20] MEDS: AMIODARONE 200 MG TAB PO SCH (22:02)
[2023-04-20] MEDS: METOPROLOL TARTRATE 50 MG TAB PO SCH (22:04)
--- NOTE | 2023-04-20 22:40 | Electrocardiogram Report ---
Test Reason : Blood Pressure : / mmHG Vent. Rate : 072 BPM Atrial Rate : 087 BPM P-R Int : 000 ms QRS Dur : 092 ms QT Int : 414 ms P-R-T Axes : 000 040 028 degrees QTc Int : 453 ms Atrial fibrillation Incomplete right bundle branch block Abnormal ECG When compared with ECG of 17-APR-2023 04:00, Atrial fibrillation has replaced Sinus rhythm T wave inversion no longer evident in Inferior leads Confirmed by Keo Nugent ([id number]) on 04/20/2023 10:40:44 PM Referred By: Munir Andino Confirmed By:Keo Nugent
[2023-04-21] MEDS: LEVOTHYROXINE SODIUM 75 MCG TABLET PO SCH (05:29)
[2023-04-21 06:35] LABS: Basophils # (auto) 0.04 K/uL (0-0.2); Basophils % (auto) 0.6 %; Eosinophils # (auto) 0.12 K/uL (0-0.50); Eosinophils % (auto) 1.7 %; Hematocrit (blood only) 36.8 % (42.0-52.0); Hemoglobin 12.3 g/dl (14.0-18.0); Immature Granulocytes # (auto) 0.02 K/uL (0.01-0.20); Immature Granulocytes % (auto) 0.3 %; Lymphocytes # (auto) 1.01 K/uL (1.2-3.4); Lymphocytes % (auto) 14.4 %; Mean Corpuscular Hemoglobin 28.9 pg (25.0-34.0); Mean Corpuscular Hgb Conc 33.4 g/dL (32.0-36.0); Mean Corpuscular Volume 86.4 fL (80.0-100.0); Mean Platelet Volume 9.9 fL (9.4-12.4); Monocytes # (auto) 0.47 K/uL (0.11-0.59); Monocytes % (auto) 6.7 %; Neutrophils # (auto) 5.33 K/uL (1.40-6.50); Neutrophils % (auto) 76.3 %; Platelet Count 164 K/uL (130-400); RDW Standard Deviation 47.7 fL (36.4-46.3); Red Blood Count 4.26 M/uL (4.70-6.10); White Blood Count 6.99 K/ul (4.8-10.8)
[2023-04-21 07:08] LABS: BUN Creatinine Ratio 25.8 (10-20); Est GFR (African American) 38.6 ml/min; Est GFR (Non-African American) 33.3 ml/min; Magnesium 1.9 mg/dl (1.7-2.4); Potassium 4.8 mmol/L (3.5-5.1)
[2023-04-21] MEDS: LINEZOLID 600 MG TAB PO SCH (08:16)
[2023-04-21] MEDS: METOPROLOL TARTRATE 50 MG TAB PO SCH (08:16)
[2023-04-21] MEDS: GENTAMICIN EXT SCH (08:16)
[2023-04-21] MEDS: LOSARTAN POTASSIUM 25 MG TAB PO SCH (08:17)
[2023-04-21] MEDS: ROSUVASTATIN CALCIUM 10 MG TAB PO SCH (08:17)
[2023-04-21] MEDS: INSULIN ASPART PER UNIT CHARGE SC SCH ×2 (08:25→12:54)
--- NOTE | 2023-04-21 15:30 | Discharge Summary ---
Discharge Summary Date of Service April 21, 2023 Notes For Next Care Provider Needs Urology follow up for new onset hematuria Eliquis on hold until 04/23/23 Needs outpatient Cardiology follow up for atrial flutter Medication Changes From Visit HOLD Eliquis until 04/23/23 Discontinued Plavix Increased metoprolol to 37.5mg po bid Admission HPI Per Admitting Provider Dallin Li is a pleasant 87yo male with history of CAD, AF, DM, HTN and HLP presenting with chest discomfort. Patient was resting this evening - watching TV and drifting off to sleep when he developed acute onset of band-like chest pressure across his upper chest. 8/10 in severity. No associated diaphoresis, nausea, dizziness or shortness of breath. Discomfort was non-radiating, non-pleuritic and non-positional. No recent trauma or overuse. He reports that the discomfort was similar to the pain he had in November 2022 when he presented with an NSTEMI. Patient received Nitro x 1 with relief. Presently feels slightly sore and still some tightness across his upper chest. He admits to feeling anxious but otherwise no complaints. Specifically denies fever, chills, cough, SOB, abdominal pain, nausea, vomiting, diarrhea. He is fairly active and denies chest exertional chest pain. Principal Dx & Hospital Course #1 = Principal Diagnosis (1) Chest pain: 87yo male with known CAD s/p CABG x 3V in 1994, recent NSTEMI in November 2022, moderate aortic stenosis, HTN, PAD s/p right SFA stent, DM 2, CKD stage III-IV, presenting with chest pain that woke him from sleep. Troponin is mildly elevated at 31.4 and then trended downward on serial checks. EKG with no acute ischemic changes. Was in atrial flutter on admission ECHO showed hyperdynamic systolic function, EF>70%, moderate aortic stenosis, and mild Pulm HTN Appreciate cardiology consultation-suspect angina secondary to faster rates with atrial flutter No further chest pain, heart rates better controlled in 70-80s Rate control is the treatment goal at this point -Continue increased dose of metoprolol at 37.5 MG BID (was increased to 50mg bid but developed lightheadedness and orthostasis) -f/u with Cardiology within 2 weeks as outpt (2) Atrial flutter: In atrial flutter since admission Cardiology feels this is causing increased rates which is causing angina as above Rate control strategy-increased dose of metoprolol HOLD Eliquis for hematuria (3) Hematuria: New onset hematuria during this admission, resolved temporarily with holding Eliquis Plavix has been permanently discontinued Eliquis was restarted on 04/18 and now with recurrence of hematuria on the morning of 04/20 Seen by urology, plan for outpatient work-up He is able to void, no clots in the urine, monitor for postvoid residuals-none > 200mL Blood has cleared up and only voiding some dark brown sediment on day of discharge Hold Eliquis and restart 04/23 Follow-up with urology as an outpatient will be arranged as per my d/w ABDIRIZAK Diaz from Urology (4) CAD (coronary artery disease): With history of CABG x 3V in 1994, peripheral arterial disease, recent NSTEMI in November 2022 presenting with chest pain as above. -Continue Rosuvastatin, Metoprolol at increased dose, and Losartan. d/c Plavix permanently as per cardiology (5) Diabetic ulcer of left foot: Patient with diabetic ulcer, presently being treated with Linezolid and wound ca re. No evidence of systemic infection -Continue Linezolid -Continue gentamicin ointment (brought from home)-ordered today -Wound care -has f/u with Vascular Medicine planned (6) HTN (hypertension): Blood pressure controlled -Continue Losartan -Continue Metoprolol at increased dose for rate control (7) Hypothyroidism: Chronic. TSH WNL on 04/01/23 at 2.081 -Continue home dose of Synthroid (8) Dyslipidemia: Chronic. Stable. -Continue Crestor (9) PAD (peripheral artery disease): With a history of right SFA angioplasty and stent Cardiology stopped Plavix Continue Eliquis when hematuria improves Continue statin (10) Aortic stenosis: Moderate on echo Follow as an outpatient (11) CKD (chronic kidney disease), stage III: Creatinine at baseline at 1.7 and stable from previous -Avoid nephrotoxins -renally dose meds when appropriate -follow BMP as outpt Plan Disposition-stable for dc to home, worked with PT who recommended home with home health DVT prophylaxis-holding Eliquis Discussed care with on phone Discharge Exam Constitutional WD/WN, vitals as above ENMT Ears: + hearing impairment Respiratory normal respiratory effort, lungs clear to auscultation Cardiovascular Rate/Rhythm: regular rate and + irregularly irregular Heart Sounds: + murmur (2/6 JENNIFER at the [facility]) Extremities: no edema Gastrointestinal (Abdomen) normal bowel sounds, soft, nontender, no hepatosplenomegaly Psychiatric Orientation: alert and cooperative Updated Medication List Medication Instructions Recorded Confirmed Type lancets (PatientFocusTouch UltraSoft #50 ea 04/20/19 04/06/23 History Lancets) niacin 500 mg tablet 500 mg PO DAILY 12/24/21 04/17/23 History apixaban 2.5 mg tablet 2.5 mg PO BID #180 tabs 07/05/22 04/17/23 Rx memantine 10 mg tablet (Namenda) 10 mg PO QPM 7 days #30 tabs 09/28/22 04/17/23 Rx collagenase clostridium histo. 250 1 applic topical DAILY 14 days #30 11/11/22 04/17/23 Rx unit/gram topical ointment (Santyl) grams nitroglycerin 0.4 mg sublingual 0.4 mg sublingual Q5M PRN chest 11/25/22 04/17/23 Rx tablet pain #25 tabs amiodarone 200 mg tablet (Pacerone) 100 mg PO QPM #90 tabs 11/26/22 04/17/23 Rx cholecalciferol (vitamin D3) 50 5,000 unit PO QAM 11/26/22 04/17/23 History mcg (2,000 unit) capsule metformin 1,000 mg tablet,extended 500 mg PO DAILY #30 tabs 11/26/22 04/17/23 Rx release 24hr blood sugar diagnostic #100 ea 11/29/22 04/06/23 Rx blood-glucose meter (OneTouch #1 ea 11/29/22 04/06/23 Rx Ultra2 Meter) ferrous sulfate 27 mg iron tablet 27 mg PO QAM 01/20/23 04/17/23 History levothyroxine 75 mcg tablet 75 mcg PO DAILY #90 tabs 01/31/23 04/17/23 Rx losartan 25 mg tablet 25 mg PO DAILY #90 tabs 01/31/23 04/17/23 Rx gabapentin 100 mg capsule 100 mg PO .COMPLEX #150 caps 03/10/23 04/17/23 Rx rosuvastatin 10 mg tablet 10 mg PO DAILY #90 tabs 03/17/23 04/17/23 Rx clopidogrel 75 mg tablet 75 mg PO DAILY #30 tabs 03/29/23 04/17/23 Rx gentamicin 0.1 % topical ointment 1 applic topical DAILY 14 days #30 04/11/23 04/17/23 Rx grams linezolid 600 mg tablet 600 mg PO BID 10 days #20 tabs 04/11/23 04/17/23 Rx metoprolol tartrate 25 mg tablet 37.5 mg PO BID #90 tabs 04/21/23 Rx Hospital Stay Data Consultations 04/17/23 04:47 ED Decision to Admit Stat 04/17/23 08:01 Consult Urology Routine 04/17/23 11:41 Consult Cardiology Routine Procedures Performed ECHO Pending Results Patient Have Any Pending Studies at Discharge: No Discharge Instructions Given to Patient (Per Discharging Provider) You were admitted with chest pain that may be coming from the abnormal heart rhythm you have called atrial kenyatta. Your metoprolol dose was increased to lower your heart rate and help prevent the chest pain from returning. This did help you. Please follow up with Dr. Nugent within 2 weeks. You developed bleeding in your urine and your Eliquis was placed on hold. The bleeding has stopped at this time and you are still passing some old dark blood in your urine. You should remain OFF your Eliquis for one more day and then restart this on TuesdayApril 23. Follow up will be arranged with the Urologist to further investigate why you are bleeding in your urine. If you develop bright red blood or pass clots of blood in your urine, or have trouble getting your urine out, please call the Urology office right away. [facility] [employer] also STOPPED your PLAVIX permanently. Total Time Total Time Spent Total Time Spent (In Minutes): 45 min Total Time Includes: Examination of the Patient, Discharge Planning, Medication Reconciliation and Communication With Other Providers (Cardiology and Urology) Coding Level of Care Code 87449 INP/OBS DISCH >30 MIN Diagnoses Chest pain R07.9 Atrial flutter I48.92 Hematuria R31.9 CAD (coronary artery disease) I25.10 Diabetic ulcer of left foot E11.621; L97.529 HTN (hypertension) I10 Hypothyroidism E03.9 Dyslipidemia E78.5 PAD (peripheral artery disease) I73.9 Aortic stenosis I35.0 CKD (chronic kidney disease), stage III N18.3
== END 2023-04-21 18:15 | disposition home health service (06) | DRG 309 ==
LOC: 4W 03:53 → ED 03:53 → SUATTDRO 05:28 → 4W 11:55 → 2W 04-19 15:57

== ENCOUNTER 2024-05-26 09:23 | Inpatient (IN) ==
--- NOTE | 2024-05-26 09:44 | Emergency Department Note ---
Impression & Plan Left arm numbness, History of coronary artery bypass graft x 3, Elevated troponin, Heart murmur, Anemia, Left wrist pain ED Provider Note NAME: ARSENIO BARRERA AGE: 88 SEX: M : 1935 ARRIVES VIA: Ambulance INFORMANT: [Patient] ED PROVIDER(S): [Jigar Byrne MD] CHIEF COMPLAINT: Arm pain HISTORY OF PRESENT ILLNESS: The patient is an 88-year-old male who states that 4 days ago, he began to notice some numbness in the right arm. This was persistent, nothing made it better or worse. Last night, about 6 and half hours ago, he woke up and the right arm numbness seemed to be gone, he was experiencing now some left arm numbness. The patient states that he has a history of previous CABG x 3 in 1994. When he began noticing the left arm symptoms, he decided to come to the hospital for an evaluation. There has been no exertional chest pain or dyspnea. He has had no fever or nausea. There has been no fall or trauma. He has noticed some swelling of the left wrist lately, he states he thinks it may just be arthritis. PMHx/PSHx/Social Hx: See Below PHYSICAL EXAM: GENERAL: Patient is in no acute distress. HEENT: No acute trauma, normocephalic atraumatic, mucous membranes moist, no nasal congestion. NECK: No stridor, no adenopathy, no meningismus, trachea is midline. LUNGS: Clear to auscultation bilaterally, no wheeze, no rhonchi, breath sounds equal. HEART: 2/6 systolic murmur, regular rate and rhythm. ABDOMEN: Soft, nontender, no peritonitis. EXTREMITIES: No cyanosis. There is some subtle erythema to the left dorsal wrist. He is tender in this area. Movement of the wrist does cause some pain. There was no warmth. He has a strong radial pulse in both upper extremities. NEUROLOGIC: Oriented x 3, no acute motor or sensory deficits, no focal weakness. He has no cerebellar deficit or extremity drift. No speech slur or facial droop. SKIN: No jaundice, no diaphoresis. DIFFERENTIAL DIAGNOSIS: Cardiac ischemia, nerve impingement, stroke or TIA, MS, anemia, aortic dissection, among others. EMERGENCY DEPARTMENT PROCEDURES: MEDICAL DECISION MAKING: There is no leukocytosis. The patient does have a mild anemia however, this is baseline looking back at previous testing. There was a normal platelet count. INR is slightly elevated, likely from his Eliquis use. There was some mild renal insufficiency which appears baseline. No electrolyte abnormality in need of emergent correction. No concerning liver enzyme elevation. No evidence for pancreatitis. The patient appeared to be in a euthyroid state. ECG shows a sinus bradycardia with some nonspecific change, no ST elevation. Cardiac enzyme testing x 1 is slightly elevated, this troponin evaluation could be secondary to cardiac injury or potentially just mismatch. Looking back at previous testing, he does have a history of some troponin elevations. Chest x-ray did not show pneumonia or CHF. On exam, patient was resting comfortably. He was not in distress. The patient was given IV Solu-Medrol and IV Benadryl. This was given in preparation for a CT of the chest. The CT was performed and there were no findings of aortic dissection or PE. Because of his left wrist pain and swelling, a film was performed, arthritis was seen, no fracture. Clinically, there were no findings of cellulitis or septic joint. Patient is given a 500 cc saline bolus. Patient presents with some left arm discomfort/numbness. He has a history of CABG. He is 88 years of age and has a mildly elevated troponin. I do think further cardiac workup inpatient would be warranted. I spoke with the patient and case management, the on-call hospitalist was consulted. Prior/Outside records/notes reviewed: Today's EMS notes describing his presentation and transport to this hospital. ECG per my interpretation: Indication was cardiac complaints. The ECG shows what appears to be a sinus bradycardia with some nonspecific ST change. The rate was 58. There was no ST elevation, no PVCs, the QTc was 463. Continuous Cardiac Monitoring per my interpretation: An order was placed for continuous cardiac monitoring. The monitor shows a rate of 56 with sinus pericardia. Imaging/x-ray results per my interpretation: Chest x-ray does not show mediastinal widening, pneumonia or pneumothorax. There was no CHF. Chronic Medical/Social conditions affecting care: Advanced age, history of previous CABG x 3. Care/Management discussed with: Case management, the on-call hospitalist. Level of care consideration(s): After review of the information above and other included data: --I believe the patient requires escalation of care to admission DISPOSITION: Admission Past Med/Surg History Problem List (Updated 05/26/24 @ 13:34 by Jigar Byrne MD) Left wrist pain (Acute) Anemia (Acute) Heart murmur (Acute) Elevated troponin (Acute) History of coronary artery bypass graft x 3 (Acute) Left arm numbness (Acute) Traumatic open wound of right lower leg (Acute) Nephrolithiasis Scalp laceration (Acute) Hypothyroidism Aortic stenosis Echo 04/2023: Moderate aortic stenosis (TK 1.1 cm, MG 19.9 mmHg) Diabetes type 2, controlled HTN (hypertension) Dyslipidemia Hx of non-ST elevation myocardial infarction (NSTEMI) 11/2022 CAD (coronary artery disease) s/p CABG x3 (1994) Atrial flutter (Acute) Personal history of diabetic foot ulcer Diabetic peripheral neuropathy associated with type 2 diabetes mellitus (Chronic) PAD (peripheral artery disease) s/p right SFA angioplasty Arthritis of right hip (Chronic) S/P closed reduction of dislocated total hip prosthesis (Chronic) Enlarged prostate without lower urinary tract symptoms (luts) (Chronic) Retention of urine, unspecified (Chronic) Tricuspid regurgitation Nocturia Memory change Hematuria Medical History Mild pulmonary hypertension Echo 04/2023: Mild pulmonary hypertension. Estimated RVSP 41 mmHg. Dementia Noted in records, unsure if official diagnosis Anemia Chronic, baseline 11-13 range per chart review CKD (chronic kidney disease), stage III Surgical History History of anesthesia reaction History of total left hip arthroplasty History of cardioversion History of incision and drainage Difficult airway for intubation History of hip surgery History of total right hip arthroplasty History of colonoscopy History of repair of left rotator cuff History of fracture History of tonsillectomy History of hernia surgery History of appendectomy History of vascular surgery History of neck surgery History of cardiac cath Hx of CABG (~1994) Family History Mother Alzheimer disease Father Arthritis Denies family history of Ovarian cancer Prostate cancer Myocardial infarction Breast cancer Colorectal cancer Social History Smoking Status: Unknown if ever smoked Second Hand Exposure: No; Do You Dip or Chew Tobacco: No; Hx Alcohol Use: No Hx Substance Use: No Preferred Language: Uzbek Communication Ability: Effective Communication Ability Comment: pt currently doing PT / ([facility]) does phone interview. Pt helps. 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 Feels Safe at Home: Yes Childhood Exposure to Second-Hand Smoke: No Diet: regular caffeine: Yes Dental Care, Regularly: Yes Physical Activity Frequency: Daily Seatbelt Use: always Sunscreen Use: No Do you think of yourself as: straight/heterosexual Gender Identity: Male Assistive Devices: Glasses, Walker and Other Allergies Allergies Allergy/AdvReac Type Severity Reaction Status Date / Time Penicillins Allergy Unknown Generalized Verified 05/26/24 09:45 and facial swelling shellfish derived Allergy Unknown Generalized Verified 05/26/24 09:45 and facial swelling Sulfa (Sulfonamide Allergy Unknown Generalized Verified 05/26/24 09:45 Antibiotics) and facial swelling sitagliptin [From Januvia] AdvReac Severe Diarrhea Verified 05/26/24 09:45 Home Meds Home Medications Medication Instructions Recorded Confirmed niacin 500 mg tablet 500 mg PO QAM 12/24/21 05/26/24 cholecalciferol (vitamin D3) 50 5,000 unit PO QAM 11/26/22 05/26/24 mcg (2,000 unit) capsule ferrous sulfate 27 mg iron tablet 27 mg PO QAM 01/20/23 05/26/24 glyburide 1.25 mg tablet 1.25 mg PO BID 11/08/23 05/26/24 memantine 10 mg tablet 10 mg PO HS 05/26/24 05/26/24 Previous Rx's Medication Instructions Recorded nitroglycerin 0.4 mg sublingual 0.4 mg sublingual Q5M PRN chest 11/25/22 tablet pain #25 tabs metoprolol tartrate 25 mg tablet 12.5 mg (1/2 x 25 mg) PO BID #30 07/04/23 tabs apixaban 2.5 mg tablet 2.5 mg PO BID #180 tabs 08/10/23 levothyroxine 100 mcg tablet 100 mcg PO DAILY #90 tabs 02/08/24 (Synthroid) rosuvastatin 10 mg tablet 10 mg PO HS #90 tabs 03/15/24 amiodarone 200 mg tablet 200 mg PO DAILY #90 tabs 05/21/24 Results & Data (ED) Vital Signs Vital Signs - 24 hr 05/26/24 09:32 05/26/24 10:30 05/26/24 11:20 Temperature 36.7 C Temperature Source Oral Pulse Rate 56 L Pulse Rate [Left Finger] 52 L 53 L Pulse Rhythm Regular Pulse Strength Normal Respiratory Rate 18 16 16 Respiratory Effort / Characteristics Non-Labored Spontaneous Respiratory Depth Normal Respiratory Pattern Regular Blood Pressure 190/86 H Blood Pressure [Right Arm] 173/83 H 173/90 H Blood Pressure Mean 120 Blood Pressure Mean [Right Arm] 113 117 Blood Pressure Position Lying Pulse Oximetry 96 96 96 Oxygen Delivery Method Room Air Sepsis Recent Fever Within 48 Hours No Sepsis New/Unexplained Change in Mental Status No Sepsis Action Taken by Nursing No Action Required Home Medications Current Medication List: was personally reviewed by me Laboratory Data Attestation: I reviewed the patient's lab results. 05/26/24 09:40 05/26/24 09:40 Lab Results 05/26/24 05/26/24 Range/Units 09:40 11:23 WBC 8.76 (4.8-10.8) K/ul RBC 4.65 L (4.70-6.10) M/uL Hgb 12.6 L (14.0-18.0) g/dl Hct 39.3 L (42.0-52.0) % MCV 84.5 (80.0-100.0) fL MCH 27.1 (25.0-34.0) pg MCHC 32.1 (32.0-36.0) g/dL RDW Std Deviation 58.4 H (36.4-46.3) fL RDW Coeff of Cyndi 19.1 H (11.5-14.5) % Plt Count 185 (130-400) K/uL MPV 11.1 (9.4-12.4) fL Immature Gran % (Auto) 0.5 % Neut % (Auto) 70.6 % Lymph % (Auto) 13.2 % [place] % (Auto) 12.7 % Eos % (Auto) 2.7 % Baso % (Auto) 0.3 % Neut # (Auto) 6.18 (1.40-6.50) K/uL Lymph # (Auto) 1.16 L (1.20-3.40) K/uL [place] # (Auto) 1.11 H (0.11-0.59) K/uL Eos # (Auto) 0.24 (0.00-0.50) K/uL Baso # (Auto) 0.03 (0.00-0.20) K/uL Immature Gran # (Auto) 0.04 (0.01-0.20) K/uL PT 12.6 H (9.0-12.0) Seconds INR 1.2 H (0.9-1.1) APTT 33 H (21-31) Seconds PTT Ratio 1.2 Sodium 138 (136-145) mmol/L Potassium 4.4 (3.5-5.1) mmol/L Chloride 106 (98-107) mmol/L Carbon Dioxide 23 (21-32) mmol/L Anion Gap 9 (3-11) BUN 23 (6-23) mg/dl Creatinine 1.57 H (0.6-1.4) mg/dl Est Cr Clr Drug Dosing 32.7 ml/min Est GFR ( Amer) 44.6 ml/min Est GFR (Non-Af Amer) 38.5 ml/min BUN/Creatinine Ratio 14.6 (10-20) Glucose 107 H (70-99(Fasting)) mg/dl Calcium 9.3 (8.6-10.3) mg/dl Magnesium 1.8 (1.7-2.4) mg/dl Total Bilirubin 1.0 (0.2-1.0) mg/dl AST 26 (13-39) U/L ALT 21 (7-52) U/L Alkaline Phosphatase 88 (34-104) U/L Troponin I High Sens 39.0 H 10.1 D (0-20) pg/ml Total Protein 7.8 (6.0-8.3) gm/dl Albumin 4.1 (3.4-5.0) gm/dl Globulin 3.7 (2.5-4.0) gm/dl Albumin/Globulin Ratio 1.1 (0.9-2) Lipase 37 (11-82) U/L TSH 2.018 (0.300-4.500) uIu/ml Administered Medications Discontinued Medications Diphenhydramine HCl (Diphenhydramine 50 Mg/Ml Vial) 12.5 mg IV NOW STA Stop: 05/26/24 10:35 Last Admin: 05/26/24 10:42 Dose: 12.5 mg Documented By: JOSÉ MIGUEL Sodium Chloride (Nss) 500 mls @ 999 mls/hr IV .Q31M ONE Stop: 05/26/24 12:02 Last Admin: 05/26/24 11:39 Dose: 999 mls/hr Documented By: JOSÉ MIGUEL Ioversol (Optiray 320 125ml) 120 ml IV ONCE ONE Stop: 05/26/24 11:09 Last Admin: 05/26/24 11:09 Dose: 120 ml Documented By: HELEN Methylprednisolone (Methylprednisolone 125 Mg/2 Ml Vial) 60 mg IV NOW STA Stop: 05/26/24 10:35 Last Admin: 05/26/24 10:43 Dose: 60 mg Documented By: JOSÉ MIGUEL Imaging Data Radiologist's Impression: Chest X-Ray 05/26/24 09:40 XR chest 1V portable CLINICAL HISTORY: Chest pain, nonspecific COMPARISON STUDY: Chest radiograph April 05, 2024. FINDINGS: Status post median sternotomy. There are mediastinal surgical clips. Lung volumes are normal. There is no consolidation. Linear densities along the left heart border favor atelectasis. There is no pneumothorax or pleural effusion. Moderate cardiomegaly is unchanged. Mediastinal contours are normal. There is no evidence for pulmonary edema. IMPRESSION: No acute cardiopulmonary findings. ACT 112: Negative or not required by law. Electronically signed by: Sam Crowley M.D. 05/26/2024 10:20 AM Wrist X-Ray 05/26/24 09:40 XR wrist LT w scaphoid CLINICAL HISTORY: swelling, pain COMPARISON: None FINDINGS: There is slight widening of the scapholunate interval, measuring 3 mm. No acute fractures within the left wrist are present. There is extensive chondrocalcinosis within the left wrist. Left wrist soft tissue swelling is present. There is moderate joint space narrowing and osteophytosis of the left first carpometacarpal joint. No erosions are identified. IMPRESSION: 1. No fracture or dislocation within the left wrist. 2. Extensive left wrist chondrocalcinosis. Left wrist soft tissue swelling. 3. 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 4. Slight chronic widening of the scapholunate interval. ACT 112: Negative or not required by law. Electronically signed by: Sam Crowley M.D. 05/26/2024 10:21 AM Chest CTA 05/26/24 10:34 CT ANGIOGRAPHY OF THE CHEST DISSECTION PROTOCOL CLINICAL HISTORY: Chest pain. History of murmur. Evaluate for aortic dissection. COMPARISON STUDY: Chest radiograph performed earlier today TECHNIQUE: Before and following the IV administration of 120 mL of Optiray, helical axial images of the chest were obtained. Maximal intensity projections and sagittal and coronal reformats were viewed on an independent 3D workstation. IV contrast was administered without complication. Automated exposure control was utilized for the study. A dose lowering technique was utilized adhering to the principles of ALARA. CT DOSE: 1255.85 mGy.cm FINDINGS: There is mild dilatation of the ascending aorta measuring 4 cm at the level of the main pulmonary artery. There is no thoracic aortic dissection or intramural hematoma. There are postoperative findings consistent with median sternotomy and bypass grafting. The heart is moderately enlarged. There is preferential dilatation of the right heart chambers with dilatation of the IVC and hepatic veins with reflux of contrast. No pulmonary emboli are identified. There is no pericardial effusion. There is no thoracic lymphadenopathy. No pneumothorax or pleural effusion. Mild interlobular septal thickening is present. There are mild groundglass opacities within the lungs with subtle mosaic attenuation. Several subpleural nodular opacities are noted with minimal adjacent groundglass opacity. The largest is a 1.2 cm focus within the right middle lobe on image 152 of 213. IMPRESSION: 1. No thoracic aortic dissection. Mild dilatation of the ascending aorta measuring 4 cm at the level of the main pulmonary artery. 2. No pulmonary emboli identified. 3. Moderate cardiomegaly with preferential dilatation of the right heart chambers and dilatation of the IVC and hepatic veins with reflux of contrast. The findings raise the possibility of right heart dysfunction. 4. Mild interlobular septal thickening within the lungs. This favors mild pulmonary edema. 5. Possible air trapping within the lungs. 6. A few subpleural nodular opacities within the lungs which may reflect a mild infectious process. No confluent consolidation. A chest CT in 3 months to ensure resolution is recommended. ACT 112: Negative or not required by law. Electronically signed by: Sam Crowley M.D. 05/26/2024 11:27 AM Discharge Plan Visit Data Chief Complaint: Arm Pain Stated Complaint: left arm numbness ED Provider: Jigar Byrne Discharge Problem: Left arm numbness, History of coronary artery bypass graft x 3, Elevated troponin, Heart murmur, Anemia, Left wrist pain Patient Disposition: Admitted As Inpatient Condition: Fair Forms Stand Alone Forms: My [facility] [employer] Prescriptions Prescriptions: No Action niacin 500 mg tablet 500 mg PO QAM cholecalciferol (vitamin D3) 50 mcg (2,000 unit) capsule 5,000 unit PO QAM Patient Comments: states the bottle says 125 mcg (5,000) levothyroxine [Synthroid] 100 mcg tablet 100 mcg PO DAILY Qty: 90 1RF rosuvastatin 10 mg tablet 10 mg PO HS Qty: 90 1RF amiodarone 200 mg tablet 200 mg PO DAILY Qty: 90 3RF metoprolol tartrate 25 mg tablet 12.5 mg PO BID Qty: 30 5RF glyburide 1.25 mg tablet 1.25 mg PO BID apixaban 2.5 mg tablet 2.5 mg PO BID Qty: 180 3RF Hold Instructions: Resume on 04/23/23. Restart on 04/23/23 as long as there is no further bright red blood in your urine. ferrous sulfate 27 mg iron Tablet 27 mg PO QAM Patient Comments: not too much lately/trouble with constipation nitroglycerin 0.4 mg tablet, sublingual 0.4 mg sublingual Q5M PRN (Reason: chest pain) Qty: 25 0RF memantine 10 mg tablet 10 mg PO HS Referrals Referrals: Munir Andino III, CRNP [Primary Care Provider] - Discharge Problem: Anemia Qualifiers: Anemia type: unspecified type Qualified Code(s): D64.9 - Anemia, unspecified
[2024-05-26 09:58] LABS: Basophils # (auto) 0.03 K/uL (0.00-0.20); Basophils % (auto) 0.3 %; Eosinophils # (auto) 0.24 K/uL (0.00-0.50); Eosinophils % (auto) 2.7 %; Hematocrit (blood only) 39.3 % (42.0-52.0); Hemoglobin 12.6 g/dl (14.0-18.0); Immature Granulocytes # (auto) 0.04 K/uL (0.01-0.20); Immature Granulocytes % (auto) 0.5 %; Lymphocytes # (auto) 1.16 K/uL (1.20-3.40); Lymphocytes % (auto) 13.2 %; Mean Corpuscular Hemoglobin 27.1 pg (25.0-34.0); Mean Corpuscular Hgb Conc 32.1 g/dL (32.0-36.0); Mean Corpuscular Volume 84.5 fL (80.0-100.0); Mean Platelet Volume 11.1 fL (9.4-12.4); Monocytes # (auto) 1.11 K/uL (0.11-0.59); Monocytes % (auto) 12.7 %; Neutrophils # (auto) 6.18 K/uL (1.40-6.50); Neutrophils % (auto) 70.6 %; Platelet Count 185 K/uL (130-400); RDW Coefficient of Variation 19.1 % (11.5-14.5); RDW Standard Deviation 58.4 fL (36.4-46.3); Red Blood Count 4.65 M/uL (4.70-6.10); White Blood Count 8.76 K/ul (4.8-10.8)
--- NOTE | 2024-05-26 10:21 | XRay Report ---
XR chest 1V portable CLINICAL HISTORY: Chest pain, nonspecific COMPARISON STUDY: Chest radiograph April 05, 2024. FINDINGS: Status post median sternotomy. There are mediastinal surgical clips. Lung volumes are josh l. There is no consolidation. Linear densities along the left heart border favor atelectasis. There i s no pneumothorax or pleural effusion. Moderate cardiomegaly is unchanged. Mediastinal contours are n ormal. There is no evidence for pulmonary edema. IMPRESSION: No acute cardiopulmonary findings. ACT 112: Negative or not required by law. Electronically signed by: Sam Crowley M.D. 05/26/2024 10:20 AM
[2024-05-26 10:22] LABS: Albumin Globulin Ratio 1.1 (0.9-2); Albumin Level 4.1 gm/dl (3.4-5.0); BUN Creatinine Ratio 14.6 (10-20); Calcium 9.3 mg/dl (8.6-10.3); Creatinine Clr Calc Pharmacy 32.7 ml/min; Est GFR (African American) 44.6 ml/min; Est GFR (Non-African American) 38.5 ml/min; Globulin 3.7 gm/dl (2.5-4.0); Magnesium 1.8 mg/dl (1.7-2.4); Potassium 4.4 mmol/L (3.5-5.1); Total Protein 7.8 gm/dl (6.0-8.3)
--- NOTE | 2024-05-26 10:23 | XRay Report ---
XR wrist LT w scaphoid CLINICAL HISTORY: swelling, pain COMPARISON: None FINDINGS: There is slight widening of the scapholunate interval, measuring 3 mm. No acute fractures within the left wrist are present. There is extensive chondrocalcinosis within the left wrist. Left w rist soft tissue swelling is present. There is moderate joint space narrowing and osteophytosis of th e left first carpometacarpal joint. No erosions are identified. IMPRESSION: 1. No fracture or dislocation within the left wrist. 2. Extensive left wrist chondrocalcinosis. Left wrist soft tissue swelling. 3. 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 4. Slight chronic widening of the scapholunate interval. ACT 112: Negative or not required by law. Electronically signed by: Sam Crowley M.D. 05/26/2024 10:21 AM
[2024-05-26 10:25] LABS: INR 1.2 (0.9-1.1); Partial Thromboplastin Ratio 1.2; Partial Thromboplastin Time 33 Seconds (21-31); Prothrombin Time 12.6 Seconds (9.0-12.0)
[2024-05-26 10:37] LABS: Thyroid Stimulating Hormone 2.018 uIu/ml (0.300-4.500)
[2024-05-26] MEDS: diphenhydrAMINE 50 MG/ML VIAL IV STA (10:42)
[2024-05-26] MEDS: methylPREDNISolone 125 MG/2 ML VIAL IV STA (10:43)
[2024-05-26] MEDS: OPTIRAY 320 125ml IV ONE (11:09)
--- NOTE | 2024-05-26 11:29 | CT Scan Report ---
CT ANGIOGRAPHY OF THE CHEST DISSECTION PROTOCOL CLINICAL HISTORY: Chest pain. History of murmur. Evaluate for aortic dissection. COMPARISON STUDY: Chest radiograph performed earlier today TECHNIQUE: Before and following the IV administration of 120 mL of Optiray, helical axial images of t he chest were obtained. Maximal intensity projections and sagittal and coronal reformats were viewed on an independent 3D workstation. IV contrast was administered without complication. Automated exp osure control was utilized for the study. A dose lowering technique was utilized adhering to the padmini Enam[place]. CT DOSE: 1255.85 mGy.cm FINDINGS: There is mild dilatation of the ascending aorta measuring 4 cm at the level of the main pu lmonary artery. There is no thoracic aortic dissection or intramural hematoma. There are postoperativ e findings consistent with median sternotomy and bypass grafting. The heart is moderately enlarged. T here is preferential dilatation of the right heart chambers with dilatation of the IVC and hepatic ve ins with reflux of contrast. No pulmonary emboli are identified. There is no pericardial effusion. Th ere is no thoracic lymphadenopathy. No pneumothorax or pleural effusion. Mild interlobular septal thi ckening is present. There are mild groundglass opacities within the lungs with subtle mosaic attenuat ion. Several subpleural nodular opacities are noted with minimal adjacent groundglass opacity. The la rgest is a 1.2 cm focus within the right middle lobe on image 152 of 213. IMPRESSION: 1. No thoracic aortic dissection. Mild dilatation of the ascending aorta measuring 4 cm at the level of the main pulmonary artery. 2. No pulmonary emboli identified. 3. Moderate cardiomegaly with preferential dilatation of the right heart chambers and dilatation of t he IVC and hepatic veins with reflux of contrast. The findings raise the possibility of right heart d ysfunction. 4. Mild interlobular septal thickening within the lungs. This favors mild pulmonary edema. 5. Possible air trapping within the lungs. 6. A few subpleural nodular opacities within the lungs which may reflect a mild infectious process. N o confluent consolidation. A chest CT in 3 months to ensure resolution is recommended. ACT 112: Negative or not required by law. Electronically signed by: Sam Crowley M.D. 05/26/2024 11:27 AM
[2024-05-26] MEDS: SODIUM CHLORIDE 0.9% 500 ML IV ONE (11:39)
--- NOTE | 2024-05-26 12:01 | Electrocardiogram Report ---
Test Reason : Blood Pressure : */* mmHG Vent. Rate : 58 BPM Atrial Rate : * BPM P-R Int : * ms QRS Dur : 92 ms QT Int : 472 ms P-R-T Axes : * 59 67 degrees QTcB Int : 463 ms Sinus bradycardia Incomplete right bundle branch block Abnormal ECG When compared with ECG of 02-Jan-2024 11:03, No significant change Confirmed by Josh Christian ([id number]) on 05/26/2024 12:01:02 PM Referred By: REFERRED SELF Confirmed By: Josh Christian
[2024-05-26] MEDS ORDERED: GLUCOSE 10 TAB/TUBE PO PRN (13:52)
[2024-05-26] MEDS ORDERED: CARBOHYDRATES FOR HYPOGLYCEMIA PO PRN (13:52)
[2024-05-26] MEDS ORDERED: DEXTROSE 50% 50 ML SYRINGE IV PRN (13:52)
[2024-05-26] MEDS ORDERED: GLUCAGON FOR INJ 1 MG VIAL SQ PRN (13:52)
[2024-05-26] MEDS ORDERED: GLUCOSE 40% GEL 15 GM TUBE PO PRN (13:52)
--- NOTE | 2024-05-26 14:09 | History & Physical Report ---
Date of Service May 26, 2024 Assessment & Plan (1) Left wrist pain: Plan: Suspect arthritis, possibly gouty Obtain x-ray of left hand Obtain sed rate, uric acid Diclofenac ointment Consider small dose of steroids Will start doxycycline, patient has a multiple allergies Doubt acute coronary syndrome, but will trend troponin (2) Aortic stenosis: Plan: Moderate aortic stenosis on echo in 2022 (3) Diabetes type 2, controlled: Plan: Continue insulin sliding scale He is on glimepiride (4) HTN (hypertension): Plan: Blood pressure is elevated in the ER Consider blood pressure medicine Avoid hypotension (5) Dyslipidemia: Plan: Continue statins (6) CAD (coronary artery disease): Plan: Denies chest pain Continue home medicine Trend troponin (7) Atrial flutter: Plan: Patient currently in sinus rhythm Continue amiodarone, metoprolol, Eliquis History of Present Illness Chief Complaint: left hand swelling, pain Primary Care Provider: Munir Andino III, ABDIRIZAK 88-year-old male with past medical history significant for aortic stenosis, last echo 2022 moderate aortic stenosis, CAD CABG x 3 in 1994, atrial flutter, he is on Eliquis amiodarone metoprolol, recent upper respiratory tract infection, resolved. Chronic kidney disease stage III. patient presents today with left hand redness and swelling and pain started yesterday. He denies chest pain or shortness of breath. Denies fever, chills or cough. Blood work in the ER consistent with elevated creatinine 1.57 , last creatinine 1.7 in December . first troponin is 39, repeated 110. Patient had a CTA in the emergency room patient had a CTA in the ER. no PE. Moderate cardiomegaly. Patient denies shortness of breath. Allergies Allergy/AdvReac Type Severity Reaction Status Date / Time Penicillins Allergy Unknown Generalized Verified 05/26/24 09:45 and facial swelling shellfish derived Allergy Unknown Generalized Verified 05/26/24 09:45 and facial swelling Sulfa (Sulfonamide Allergy Unknown Generalized Verified 05/26/24 09:45 Antibiotics) and facial swelling sitagliptin [From Octuvia] AdvReac Severe Diarrhea Verified 05/26/24 09:45 Home Medications Medication Instructions Recorded Confirmed Type niacin 500 mg tablet 500 mg PO QAM 12/24/21 05/26/24 History nitroglycerin 0.4 mg sublingual 0.4 mg sublingual Q5M PRN chest 11/25/22 05/26/24 Rx tablet pain #25 tabs cholecalciferol (vitamin D3) 50 5,000 unit PO QAM 11/26/22 05/26/24 History mcg (2,000 unit) capsule ferrous sulfate 27 mg iron tablet 27 mg PO QAM 01/20/23 05/26/24 History metoprolol tartrate 25 mg tablet 12.5 mg (1/2 x 25 mg) PO BID #30 07/04/23 05/26/24 Rx tabs apixaban 2.5 mg tablet 2.5 mg PO BID #180 tabs 08/10/23 05/26/24 Rx glyburide 1.25 mg tablet 1.25 mg PO BID 11/08/23 05/26/24 History levothyroxine 100 mcg tablet 100 mcg PO DAILY #90 tabs 02/08/24 05/26/24 Rx (Synthroid) rosuvastatin 10 mg tablet 10 mg PO HS #90 tabs 03/15/24 05/26/24 Rx amiodarone 200 mg tablet 200 mg PO DAILY #90 tabs 05/21/24 05/26/24 Rx memantine 10 mg tablet 10 mg PO HS 05/26/24 05/26/24 History Past Med/Surg History Problem List (Updated 05/26/24 @ 13:34 by Jigar Byrne MD) Left wrist pain (Acute) Anemia (Acute) Heart murmur (Acute) Elevated troponin (Acute) History of coronary artery bypass graft x 3 (Acute) Left arm numbness (Acute) Traumatic open wound of right lower leg (Acute) Nephrolithiasis Scalp laceration (Acute) Hypothyroidism Aortic stenosis Echo 04/2023: Moderate aortic stenosis (TK 1.1 cm, MG 19.9 mmHg) Diabetes type 2, controlled HTN (hypertension) Dyslipidemia Hx of non-ST elevation myocardial infarction (NSTEMI) 11/2022 CAD (coronary artery disease) s/p CABG x3 (1994) Atrial flutter (Acute) Personal history of diabetic foot ulcer Diabetic peripheral neuropathy associated with type 2 diabetes mellitus (Chronic) PAD (peripheral artery disease) s/p right SFA angioplasty Arthritis of right hip (Chronic) S/P closed reduction of dislocated total hip prosthesis (Chronic) Enlarged prostate without lower urinary tract symptoms (luts) (Chronic) Retention of urine, unspecified (Chronic) Tricuspid regurgitation Nocturia Memory change Hematuria Medical History Mild pulmonary hypertension Echo 04/2023: Mild pulmonary hypertension. Estimated RVSP 41 mmHg. Dementia Noted in records, unsure if official diagnosis Anemia Chronic, baseline 11-13 range per chart review CKD (chronic kidney disease), stage III Surgical History History of anesthesia reaction History of total left hip arthroplasty History of cardioversion History of incision and drainage Difficult airway for intubation History of hip surgery History of total right hip arthroplasty History of colonoscopy History of repair of left rotator cuff History of fracture History of tonsillectomy History of hernia surgery History of appendectomy History of vascular surgery History of neck surgery History of cardiac cath Hx of CABG (~1994) Family History Mother Alzheimer disease Father Arthritis Denies family history of Ovarian cancer Prostate cancer Myocardial infarction Breast cancer Colorectal cancer Social History Smoking Status: Unknown if ever smoked Second Hand Exposure: No; Do You Dip or Chew Tobacco: No; Hx Alcohol Use: No Hx Substance Use: No Preferred Language: Martiniquais Communication Ability: Effective Communication Ability Comment: pt currently doing PT / (HIPPA) does phone interview. Pt helps. 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 Feels Safe at Home: Yes Childhood Exposure to Second-Hand Smoke: No Diet: regular caffeine: Yes Dental Care, Regularly: Yes Physical Activity Frequency: Daily Seatbelt Use: always Sunscreen Use: No Do you think of yourself as: straight/heterosexual Gender Identity: Male Assistive Devices: Glasses, Walker and Other Review of Systems Review of Systems: All systems reviewed & are unremarkable except as noted in Subjective Physical Exam Physical Exam: Head atraumatic normocephalic neck supple, no lymphadenopathy Chest clear to auscultation bilaterally Heart S1-S2 regular, systolic murmur present Abdomen soft nontender nondistended, bowel sounds present Extremities left hand has some redness and swelling, warm to touch Lower extremities right lower extremity swelling, chronic no other findings Neuro alert awake oriented x 3, no focal neurological deficit Results & Data Results & Data Vital Signs (Past 12 Hours) Vital Signs Temp Pulse Pulse Resp BP BP Pulse Ox 05/26/24 11:20 53 L 16 173/90 H 96 05/26/24 10:30 52 L 16 173/83 H 96 05/26/24 09:32 36.7 C 56 L 18 190/86 H 96 O2 Del Method 05/26/24 11:20 05/26/24 10:30 05/26/24 09:32 Room Air Laboratory Results Abnormal lab results 05/26/24 Range/Units 09:40 RBC 4.65 L (4.70-6.10) M/uL Hgb 12.6 L (14.0-18.0) g/dl Hct 39.3 L (42.0-52.0) % RDW Std Deviation 58.4 H (36.4-46.3) fL RDW Coeff of Cyndi 19.1 H (11.5-14.5) % Lymph # (Auto) 1.16 L (1.20-3.40) K/uL Labette # (Auto) 1.11 H (0.11-0.59) K/uL PT 12.6 H (9.0-12.0) Seconds INR 1.2 H (0.9-1.1) APTT 33 H (21-31) Seconds Creatinine 1.57 H (0.6-1.4) mg/dl Glucose 107 H (70-99(Fasting)) mg/dl Troponin I High Sens 39.0 H (0-20) pg/ml Diagnostic Findings Chest X-Ray 05/26/24 09:40 XR chest 1V portable CLINICAL HISTORY: Chest pain, nonspecific COMPARISON STUDY: Chest radiograph April 05, 2024. FINDINGS: Status post median sternotomy. There are mediastinal surgical clips. Lung volumes are normal. There is no consolidation. Linear densities along the left heart border favor atelectasis. There is no pneumothorax or pleural effusion. Moderate cardiomegaly is unchanged. Mediastinal contours are normal. There is no evidence for pulmonary edema. IMPRESSION: No acute cardiopulmonary findings. ACT 112: Negative or not required by law. Electronically signed by: Sam Crowley M.D. 05/26/2024 10:20 AM Wrist X-Ray 05/26/24 09:40 XR wrist LT w scaphoid CLINICAL HISTORY: swelling, pain COMPARISON: None FINDINGS: There is slight widening of the scapholunate interval, measuring 3 mm. No acute fractures within the left wrist are present. There is extensive chondrocalcinosis within the left wrist. Left wrist soft tissue swelling is present. There is moderate joint space narrowing and osteophytosis of the left first carpometacarpal joint. No erosions are identified. IMPRESSION: 1. No fracture or dislocation within the left wrist. 2. Extensive left wrist chondrocalcinosis. Left wrist soft tissue swelling. 3. 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 4. Slight chronic widening of the scapholunate interval. ACT 112: Negative or not required by law. Electronically signed by: Sam Crowley M.D. 05/26/2024 10:21 AM Chest CTA 05/26/24 10:34 CT ANGIOGRAPHY OF THE CHEST DISSECTION PROTOCOL CLINICAL HISTORY: Chest pain. History of murmur. Evaluate for aortic dissection. COMPARISON STUDY: Chest radiograph performed earlier today TECHNIQUE: Before and following the IV administration of 120 mL of Optiray, helical axial images of the chest were obtained. Maximal intensity projections and sagittal and coronal reformats were viewed on an independent 3D workstation. IV contrast was administered without complication. Automated exposure control was utilized for the study. A dose lowering technique was utilized adhering to the principles of ALARA. CT DOSE: 1255.85 mGy.cm FINDINGS: There is mild dilatation of the ascending aorta measuring 4 cm at the level of the main pulmonary artery. There is no thoracic aortic dissection or intramural hematoma. There are postoperative findings consistent with median sternotomy and bypass grafting. The heart is moderately enlarged. There is preferential dilatation of the right heart chambers with dilatation of the IVC and hepatic veins with reflux of contrast. No pulmonary emboli are identified. There is no pericardial effusion. There is no thoracic lymphadenopathy. No pneumothorax or pleural effusion. Mild interlobular septal thickening is present. There are mild groundglass opacities within the lungs with subtle mosaic attenuation. Several subpleural nodular opacities are noted with minimal adjacent groundglass opacity. The largest is a 1.2 cm focus within the right middle lobe on image 152 of 213. IMPRESSION: 1. No thoracic aortic dissection. Mild dilatation of the ascending aorta measuring 4 cm at the level of the main pulmonary artery. 2. No pulmonary emboli identified. 3. Moderate cardiomegaly with preferential dilatation of the right heart chambers and dilatation of the IVC and hepatic veins with reflux of contrast. The findings raise the possibility of right heart dysfunction. 4. Mild interlobular septal thickening within the lungs. This favors mild pulmonary edema. 5. Possible air trapping within the lungs. 6. A few subpleural nodular opacities within the lungs which may reflect a mild infectious process. No confluent consolidation. A chest CT in 3 months to ensure resolution is recommended. ACT 112: Negative or not required by law. Electronically signed by: Sam Crowley M.D. 05/26/2024 11:27 AM ECG Additional Comments: Sinus bradycardia Incomplete right bundle branch block Abnormal ECG PG Care Time/CCT Total # of Minutes Spent Total Time Spent with Patient: Total time spent is greater than 50% in coordination of care (as documented) at patient's floor/unit and/or counseling patient: Coding Level of Care Code 34472 INT INP/OBS CARE 3/75MIN Diagnoses Left wrist pain M25.532 Aortic stenosis I35.0 Diabetes type 2, controlled E11.9 HTN (hypertension) I10 Dyslipidemia E78.5 CAD (coronary artery disease) I25.10 Atrial flutter I48.92
[2024-05-26 14:38] LABS: Uric Acid 4.1 mg/dl (2.6-7.2)
[2024-05-26] MEDS ORDERED: ONDANSETRON INJ 2 MG/ML 2 ML VIAL IV PRN (14:48)
[2024-05-26] MEDS ORDERED: NITROGLYCERIN SL 0.4 MG/TAB TAB SL PRN (14:48)
[2024-05-26] MEDS ORDERED: POLYETHYLENE (MIRALAX) 17 GM PACK PO PRN (14:48)
[2024-05-26] MEDS ORDERED: ACETAMINOPHEN 325 MG TAB PO PRN (14:48)
[2024-05-26] MEDS ORDERED: MAGNESIUM HYDROXIDE SUSP 30 ML UDC PO PRN (14:48)
[2024-05-26] MEDS ORDERED: MELATONIN 3 MG TAB PO PRN (14:48)
[2024-05-26] MEDS: INSULIN ASPART PER UNIT CHARGE SC SCH (17:45)
[2024-05-26] MEDS: APIXABAN 2.5 MG TAB PO SCH (20:16)
[2024-05-26] MEDS: METOPROLOL TARTRATE 25 MG TAB PO SCH (20:16)
[2024-05-26] MEDS: MEMANTINE HCL 10 MG TAB PO SCH (20:16)
[2024-05-26] MEDS: ROSUVASTATIN CALCIUM 10 MG TAB PO SCH (20:16)
[2024-05-26] MEDS: DOXYCYCLINE HYCLATE 100 MG CAP PO SCH (20:16)
[2024-05-26] MEDS: DICLOFENAC SOD 1% GEL 100 GM TUBE EXT SCH (20:17)
[2024-05-26] MEDS ORDERED: glyBURIDE 2.5 MG TAB PO SCH (21:00)
[2024-05-27] MEDS: LEVOTHYROXINE SODIUM 100 MCG TABLET PO SCH (05:46)
[2024-05-27 06:41] LABS: Hematocrit (blood only) 36.6 % (42.0-52.0); Hemoglobin 11.9 g/dl (14.0-18.0); Mean Corpuscular Hemoglobin 26.7 pg (25.0-34.0); Mean Corpuscular Hgb Conc 32.5 g/dL (32.0-36.0); Mean Corpuscular Volume 82.2 fL (80.0-100.0); Mean Platelet Volume 11.6 fL (9.4-12.4); Platelet Count 177 K/uL (130-400); RDW Coefficient of Variation 18.8 % (11.5-14.5); RDW Standard Deviation 56.8 fL (36.4-46.3); Red Blood Count 4.45 M/uL (4.70-6.10); White Blood Count 9.32 K/ul (4.8-10.8)
[2024-05-27 06:54] LABS: BUN Creatinine Ratio 21.5 (10-20); Calcium 8.6 mg/dl (8.6-10.3); Est GFR (African American) 47.5 ml/min; Potassium 4.7 mmol/L (3.5-5.1)
[2024-05-27] MEDS: CHOLECALCIFEROL 125 MCG (5,000 UNITS) TAB PO SCH (08:36)
[2024-05-27] MEDS: AMIODARONE 200 MG TAB PO SCH (08:36)
[2024-05-27] MEDS: FERROUS SULFATE 325 MG TAB PO SCH (08:37)
[2024-05-27] MEDS: NIACIN 500 MG TAB PO SCH (08:37)
--- NOTE | 2024-05-27 08:49 | XCELERA ---
[id number] \\[id number]_Reports\[id number]}___[id number]
[2024-05-27] MEDS: amLODIPine BESYLATE 5 MG TAB PO SCH (13:38)
[2024-05-27] MEDS: predniSONE 20 MG TAB PO SCH (13:38)
--- NOTE | 2024-05-27 15:59 | Hospitalist Progress Note ---
Date of Service May 27, 2024 Assessment & Plan (1) Left wrist pain: Plan: Suspect arthritis, possibly gouty versus pseudogout Left hand x-ray shows chondrocalcinosis, pointing towards pseudogout Uric acid normal ESR elevated Diclofenac ointment Discontinue doxycycline. No cellulitis seen. Start prednisone 40 mg p.o. daily Troponins flat. Echocardiogram negative. No chest pain. Left wrist is swollen and tender. 1 week ago, right wrist was swollen and tender. Noncardiac. (2) Aortic stenosis: Plan: Moderate aortic stenosis on echo in 2022 (3) Diabetes type 2, controlled: Plan: Continue insulin sliding scale He is on glimepiride (4) HTN (hypertension): Plan: Blood pressure is elevated Patient was given amlodipine 10 mg today in addition Patient was previously on losartan which was discontinued to give room for beta- steph Will start losartan 25 mg now since blood pressure still elevated (5) Dyslipidemia: Plan: Continue statins (6) CAD (coronary artery disease): Plan: Denies chest pain Continue home medicine (7) Atrial flutter: Plan: Patient currently in sinus rhythm Continue amiodarone, metoprolol, Eliquis Plan Full code DVT prophylaxis: Eliquis Admission and Anticipated Discharge Date Admission Date: May 26, 2024 Subjective Patient feels well overall. Left wrist is less painful and less swollen today. It is not as red. He tells me that about a week ago, his right wrist was similarly swollen and red but had improved on its own. No chest pain. Review of Systems Review of Systems: All systems reviewed & are unremarkable except as noted in Subjective Physical Exam Physical Exam: General: Awake, conversant Heart: S1, S2/regular rate and rhythm, no murmur rubs or gallops Lungs: Clear to auscultation bilaterally. Normal effort Abdomen: Soft/nontender/nondistended. No hepatosplenomegaly Extremities: No clubbing/cyanosis. No edema. Left wrist is slightly swollen and erythematous. Good range of movement. Behavior: Appropriate, cooperative Results & Data Results & Data Vital Signs (Past 12 Hours) Vital Signs Temp Pulse Pulse Resp BP BP Pulse Ox 05/27/24 15:47 55 L 05/27/24 11:34 36.4 C L 59 L 20 186/77 H 95 05/27/24 07:16 70 05/27/24 06:38 36.7 C 69 18 159/82 H 92 O2 Del Method 05/27/24 15:47 05/27/24 11:34 Room Air 05/27/24 07:16 05/27/24 06:38 Room Air Laboratory Results Abnormal lab results 05/26/24 05/26/24 05/26/24 Range/Units 16:50 20:12 22:16 RBC (4.70-6.10) M/uL Hgb (14.0-18.0) g/dl Hct (42.0-52.0) % RDW Std Deviation (36.4-46.3) fL RDW Coeff of Cyndi (11.5-14.5) % BUN (6-23) mg/dl Creatinine (0.6-1.4) mg/dl BUN/Creatinine Ratio (10-20) Glucose (70-99(Fasting)) mg/dl POC Glucose 158 H 226 H (70-99) mg/dl Troponin I High Sens 31.9 H (0-20) pg/ml 05/27/24 05/27/24 05/27/24 Range/Units 06:01 08:06 12:11 RBC 4.45 L (4.70-6.10) M/uL Hgb 11.9 L (14.0-18.0) g/dl Hct 36.6 L (42.0-52.0) % RDW Std Deviation 56.8 H (36.4-46.3) fL RDW Coeff of Cyndi 18.8 H (11.5-14.5) % BUN 32 H (6-23) mg/dl Creatinine 1.49 H (0.6-1.4) mg/dl BUN/Creatinine Ratio 21.5 H (10-20) Glucose 149 H (70-99(Fasting)) mg/dl POC Glucose 150 H 170 H (70-99) mg/dl Troponin I High Sens 36.8 H (0-20) pg/ml 05/27/24 Range/Units 14:13 RBC (4.70-6.10) M/uL Hgb (14.0-18.0) g/dl Hct (42.0-52.0) % RDW Std Deviation (36.4-46.3) fL RDW Coeff of Cyndi (11.5-14.5) % BUN (6-23) mg/dl Creatinine (0.6-1.4) mg/dl BUN/Creatinine Ratio (10-20) Glucose (70-99(Fasting)) mg/dl POC Glucose (70-99) mg/dl Troponin I High Sens 44.8 H (0-20) pg/ml PG Care Time/CCT Total # of Minutes Spent Total Time Spent with Patient: Total time spent is greater than 50% in coordination of care (as documented) at patient's floor/unit and/or counseling patient: Coding Level of Care Code 96546 SUB INP/OBS CARE 2/35MIN Diagnoses Left wrist pain M25.532 Aortic stenosis I35.0 Diabetes type 2, controlled E11.9 HTN (hypertension) I10 Dyslipidemia E78.5 CAD (coronary artery disease) I25.10 Atrial flutter I48.92
[2024-05-27] MEDS: LOSARTAN POTASSIUM 25 MG TAB PO SCH (18:00)
[2024-05-28 06:39] LABS: Hematocrit (blood only) 37.8 % (42.0-52.0); Hemoglobin 12.3 g/dl (14.0-18.0); Mean Corpuscular Hemoglobin 27.1 pg (25.0-34.0); Mean Corpuscular Hgb Conc 32.5 g/dL (32.0-36.0); Mean Corpuscular Volume 83.3 fL (80.0-100.0); Mean Platelet Volume 11.1 fL (9.4-12.4); Platelet Count 181 K/uL (130-400); RDW Coefficient of Variation 18.9 % (11.5-14.5); RDW Standard Deviation 56.8 fL (36.4-46.3); Red Blood Count 4.54 M/uL (4.70-6.10)
[2024-05-28 07:01] LABS: BUN Creatinine Ratio 19.9 (10-20); Calcium 8.8 mg/dl (8.6-10.3); Creatinine Clr Calc Pharmacy 22.7 ml/min; Est GFR (African American) 32.1 ml/min; Est GFR (Non-African American) 27.7 ml/min; Potassium 4.4 mmol/L (3.5-5.1)
[2024-05-28] MEDS: DOXAZosin MESYLATE TAB 2 MG TAB PO SCH (08:48)
--- NOTE | 2024-05-28 12:25 | Hospitalist Progress Note ---
Date of Service May 28, 2024 Assessment & Plan (1) Left wrist pain: Plan: Suspect arthritis, possibly gouty versus pseudogout Left hand x-ray shows chondrocalcinosis, pointing towards pseudogout Uric acid normal ESR elevated Diclofenac ointment Discontinue doxycycline. No cellulitis seen. Start prednisone 40 mg p.o. daily Troponins flat. Echocardiogram negative. No chest pain. Left wrist is swollen and tender. 1 week ago, right wrist was swollen and tender. Noncardiac. (2) Aortic stenosis: Plan: Moderate aortic stenosis on echo in 2022 (3) Diabetes type 2, controlled: Plan: Continue insulin sliding scale He is on glimepiride (4) HTN (hypertension): Plan: Blood pressure is elevated Continue metoprolol Was started on amlodipine 10 mg on 05/27 Blood pressure continue to be high and this losartan 25 mg was added Will discontinue losartan due to acute kidney injury and start Cardura instead Monitor blood pressure on this regimen (5) Dyslipidemia: Plan: Continue statins (6) CAD (coronary artery disease): Plan: Denies chest pain Continue home medicine (7) Atrial flutter: Plan: Patient currently in sinus rhythm Continue amiodarone, metoprolol, Eliquis (8) Acute kidney injury superimposed on stage 3a chronic kidney disease: Plan: Creatinine bumped to 2 from 1.5 Discontinue losartan Patient does not appear to be dehydrated or fluid overloaded Baseline creatinine seems to be around 1.7-1.8 Monitor BMP closely Avoid nephrotoxic medications Plan Full code DVT prophylaxis: Eliquis Admission and Anticipated Discharge Date Admission Date: May 26, 2024 Subjective Patient feels well. Denies chest pain or shortness of breath. Left wrist pain continues to improve. Review of Systems Review of Systems: All systems reviewed & are unremarkable except as noted in Subjective Physical Exam Physical Exam: General: Awake, conversant Heart: S1, S2/regular rate and rhythm, no murmur rubs or gallops Lungs: Clear to auscultation bilaterally. Normal effort Abdomen: Soft/nontender/nondistended. No hepatosplenomegaly Extremities: No clubbing/cyanosis. No edema. Left wrist is slightly swollen but less erythematous. Good range of movement. Behavior: Appropriate, cooperative Results & Data Results & Data Vital Signs (Past 12 Hours) Vital Signs Temp Pulse Pulse Resp BP BP Pulse Ox 05/28/24 11:31 36.4 C L 56 L 16 136/68 93 05/28/24 07:55 36.4 C L 65 16 189/85 H 94 05/28/24 07:42 05/28/24 07:14 76 05/28/24 03:27 36.7 C 66 18 169/79 H 93 O2 Del Method 05/28/24 11:31 Room Air 05/28/24 07:55 Room Air 05/28/24 07:42 Room Air 05/28/24 07:14 05/28/24 03:27 Room Air Laboratory Results Abnormal lab results 05/27/24 05/27/24 05/27/24 Range/Units 14:13 17:05 20:22 WBC (4.8-10.8) K/ul RBC (4.70-6.10) M/uL Hgb (14.0-18.0) g/dl Hct (42.0-52.0) % RDW Std Deviation (36.4-46.3) fL RDW Coeff of Cyndi (11.5-14.5) % BUN (6-23) mg/dl Creatinine (0.6-1.4) mg/dl Glucose (70-99(Fasting)) mg/dl POC Glucose 141 H 196 H (70-99) mg/dl Troponin I High Sens 44.8 H (0-20) pg/ml 05/28/24 05/28/24 05/28/24 Range/Units 06:13 08:10 11:55 WBC 12.10 H (4.8-10.8) K/ul RBC 4.54 L (4.70-6.10) M/uL Hgb 12.3 L (14.0-18.0) g/dl Hct 37.8 L (42.0-52.0) % RDW Std Deviation 56.8 H (36.4-46.3) fL RDW Coeff of Cyndi 18.9 H (11.5-14.5) % BUN 41 H (6-23) mg/dl Creatinine 2.06 H D (0.6-1.4) mg/dl Glucose 151 H (70-99(Fasting)) mg/dl POC Glucose 145 H 161 H (70-99) mg/dl Troponin I High Sens (0-20) pg/ml PG Care Time/CCT Total # of Minutes Spent Total Time Spent with Patient: Total time spent is greater than 50% in coordination of care (as documented) at patient's floor/unit and/or counseling patient: Coding Level of Care Code 48500 SUB INP/OBS CARE 2/35MIN Diagnoses Left wrist pain M25.532 Aortic stenosis I35.0 Diabetes type 2, controlled E11.9 HTN (hypertension) I10 Dyslipidemia E78.5 CAD (coronary artery disease) I25.10 Atrial flutter I48.92 Acute kidney injury superimposed on stage 3a chronic kidney disease N17.9; N18.31
[2024-05-29 06:23] LABS: Hemoglobin 11.9 g/dl (14.0-18.0); Mean Corpuscular Hemoglobin 27.2 pg (25.0-34.0); Mean Corpuscular Hgb Conc 33.1 g/dL (32.0-36.0); Mean Corpuscular Volume 82.2 fL (80.0-100.0); Mean Platelet Volume 11.7 fL (9.4-12.4); Platelet Count 179 K/uL (130-400); RDW Coefficient of Variation 18.6 % (11.5-14.5); RDW Standard Deviation 55.8 fL (36.4-46.3); Red Blood Count 4.38 M/uL (4.70-6.10); White Blood Count 12.55 K/ul (4.8-10.8)
[2024-05-29 06:39] LABS: BUN Creatinine Ratio 25.1 (10-20); Calcium 8.5 mg/dl (8.6-10.3); Creatinine Clr Calc Pharmacy 21.4 ml/min; Est GFR (African American) 29.8 ml/min; Est GFR (Non-African American) 25.8 ml/min; Potassium 4.2 mmol/L (3.5-5.1)
--- NOTE | 2024-05-29 09:04 | Ultrasound Report ---
RENAL ULTRASOUND HISTORY: Acute kidney injury GRECIA COMPARISON: Renal ultrasound 06/21/2023 FINDINGS: Right kidney: 9.9 cm. Calcifications within the right kidney measure up to 4-5 mm and may represent n onobstructing renal calculi versus layering calcifications within small cysts. No hydronephrosis. Nor mal corticomedullary differentiation and cortical thickness. Left kidney: 11.1 cm. No hydronephrosis. Nonobstructing calculi measure up to 4 mm. Normal corticomed ullary differentiation and cortical thickness. Bladder: Partial distention with mild wall thickening and trabeculation. Urinary bladder calculi kaela uring up to 9 mm. The bilateral ureteral jets were identified. Prostatomegaly. IMPRESSION: 1. 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 2. Nonobstructing nephrolithiasis with urinary bladder calculi. 3. No hydronephrosis. ACT 112: Negative or not required by law. Electronically signed by: Sebastián Leonard M.D. 05/29/2024 9:01 AM
--- NOTE | 2024-05-29 12:26 | Nephrology Consultation ---
Date of Consultation May 29, 2024 Assessment & Plan (1) Acute kidney injury superimposed on stage 3a chronic kidney disease: (2) HTN (hypertension): (3) Anemia: (4) Left wrist pain: Plan 88-year-old gentleman with stage IIIb CKD, baseline creatinine 1.6-1.8 most likely secondary to microvascular disease with history of coronary artery disease requiring CABG almost 29 years ago, hypertension, diabetes. Urinalysis with low-grade proteinuria and microscopic hematuria. Renal imaging with no hydronephrosis but noted to have BPH with chronic bladder outlet obstructive changes as well as nonobstructing renal calculi and bladder calculi.. Admitted with creatinine 1.5 which seems to be close to baseline but over last few days kidney function worsen and creatinine up to 2.1. Acute kidney injury could be secondary to some component of contrast-induced nephropathy, impaired autoregulation with rapid improvement in blood pressure with underlying diabetes, ?also some effect from chronic bladder outlet obstruction although no hydronephrosis noted. Microscopic hematuria most likely associated with BPH as well as bladder calculi. -- Encourage p.o. intake, continue to monitor kidney function and electrolyte. Avoid significant hypotension, if blood pressure continues to stay well- controlled or lower, may consider stopping Cardura and start on Flomax to help with BPH. Eventually he may need to follow with urology. -- If kidney function improve and stabilize, eventually would prefer ARB with low-grade proteinuria and CKD in the setting of diabetes. Thank you for allowing me to participate in your patient's care. It was a pleasure to see Mr. Li. History of Present Illness Reason for Consultation: Acute kidney injury. Attending Physician: Lindsay Rosenbaum MD History of Present Illness Mr. Dallin Li is a 88-year-old gentleman with past medical history significant for stage IIIb CKD, hypertension, diabetes, coronary artery disease admitted to the hospital with left wrist pain possibly secondary to arthritis. Nephrology consult requested for management of acute kidney injury. Electronic medical records are reviewed in detail during patient's visit. Lexx was admitted to hospital on 05/26/2024 after he started noticing some pain in his left upper extremity. Prior to admission he noticed right upper extremity pain for 2 days which resolved and started noticing left upper extremity pain prior to admission. On admission his blood pressure was significantly elevated. Workup included CTA of chest mainly to evaluate for aortic dissection with history of elevated blood pressure, which was negative for PE or aortic dissection. Initial lab showed creatinine 1.5 which was close to his baseline. However, over last 2 days his creatinine has been slowly increasing, up to 2.1 mg/dl this morning with BUN above 50. Electrolyte acceptable. Initial troponin was mildly elevated with chronically elevated troponin. Uric acid was normal. Urinalysis with low-grade proteinuria and microscopic hematuria. Renal imaging with no hydronephrosis but noted to have BPH with chronic bladder outlet obstructive changes as well as nonobstructing renal calculi and bladder calculi. He was started on losartan 25 mg yesterday which was stopped because of change in creatinine and started on Cardura in addition to amlodipine and blood pressure improved rapidly. He was also started on prednisone 40 mg daily yesterday and overall he reports improvement in pain. Non-smoker. No known history of CKD or ESKD. History of stage IIIb CKD, baseline creatinine 1.6-1.8 mg/dl most likely secondary to microvascular disease with history of hypertension, diabetes, coronary artery disease. Status post CABG in 1994, 2D echo showed EF more than 70% with moderate to severe and MR. History of a flutter, on metoprolol and Eliquis. Prior history of nephrolithiasis although asymptomatic currently. Type 2 diabetes with previous history of diabetic foot ulcer. Has history of mild dementia. He reports overall feeling well this morning, left wrist pain seem to have resolved. Denies shortness of breath or chest pain. Reports decent appetite. Decent urine output. Allergies Allergy/AdvReac Type Severity Reaction Status Date / Time Penicillins Allergy Unknown Generalized Verified 05/26/24 09:45 and facial swelling shellfish derived Allergy Unknown Generalized Verified 05/26/24 09:45 and facial swelling Sulfa (Sulfonamide Allergy Unknown Generalized Verified 05/26/24 09:45 Antibiotics) and facial swelling sitagliptin [From Januvia] AdvReac Severe Diarrhea Verified 05/26/24 09:45 Home Medications Medication Instructions Recorded Confirmed Type niacin 500 mg tablet 500 mg PO QAM 12/24/21 05/26/24 History nitroglycerin 0.4 mg sublingual 0.4 mg sublingual Q5M PRN chest 11/25/22 05/26/24 Rx tablet pain #25 tabs cholecalciferol (vitamin D3) 50 5,000 unit PO QAM 11/26/22 05/26/24 History mcg (2,000 unit) capsule ferrous sulfate 27 mg iron tablet 27 mg PO QAM 01/20/23 05/26/24 History metoprolol tartrate 25 mg tablet 12.5 mg (1/2 x 25 mg) PO BID #30 07/04/23 05/26/24 Rx tabs apixaban 2.5 mg tablet 2.5 mg PO BID #180 tabs 08/10/23 05/26/24 Rx glyburide 1.25 mg tablet 1.25 mg PO BID 11/08/23 05/26/24 History levothyroxine 100 mcg tablet 100 mcg PO DAILY #90 tabs 02/08/24 05/26/24 Rx (Synthroid) rosuvastatin 10 mg tablet 10 mg PO HS #90 tabs 03/15/24 05/26/24 Rx amiodarone 200 mg tablet 200 mg PO DAILY #90 tabs 05/21/24 05/26/24 Rx memantine 10 mg tablet 10 mg PO HS 05/26/24 05/26/24 History Patient History Medical History Mild pulmonary hypertension Echo 04/2023: Mild pulmonary hypertension. Estimated RVSP 41 mmHg. Dementia Noted in records, unsure if official diagnosis Anemia Chronic, baseline 11-13 range per chart review CKD (chronic kidney disease), stage III Surgical History History of anesthesia reaction History of total left hip arthroplasty History of cardioversion History of incision and drainage Difficult airway for intubation History of hip surgery History of total right hip arthroplasty History of colonoscopy History of repair of left rotator cuff History of fracture History of tonsillectomy History of hernia surgery History of appendectomy History of vascular surgery History of neck surgery History of cardiac cath Hx of CABG (~1994) Family History Mother Alzheimer disease Father Arthritis Denies family history of Ovarian cancer Prostate cancer Myocardial infarction Breast cancer Colorectal cancer Social History Smoking Status: Former smoker Second Hand Exposure: No; Do You Dip or Chew Tobacco: No; Tobacco Cessation Education Requested by Patient: No Hx Alcohol Use: No Hx Substance Use: No Preferred Language: Slovak Communication Ability: Effective Communication Ability Comment: pt currently doing PT / ([facility]) does phone interview. Pt helps. 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 Physical Exam Constitutional: WD/WN, vitals as above no acute distress Eyes: + anicteric sclerae Neck: normal visual inspection Respiratory: no respiratory distress Auscultation: lungs clear to auscultation bilaterally Cardiovascular: Rate/Rhythm: regular rate and regular rhythm Heart Sounds: normal S1 and normal S2 Extremities: no edema Gastrointestinal (Abdomen): Inspection/Auscultation: abdomen normal to inspection Musculoskeletal: Extremities: extremities normal to inspection No joint swelling, erythema or tenderness. Gait and range of motion normal. Skin: no rashes, warm and dry Neurologic: no focal motor deficits Psychiatric: Orientation: alert and oriented x 3 Affect: euthymic affect Results & Data Vital Signs (Past 12 Hours) Vital Signs Temp Pulse Pulse Resp BP BP Pulse Ox 05/29/24 11:25 36.6 C 80 20 99/64 L 97 05/29/24 07:56 36.6 C 95 H 20 132/79 94 05/29/24 07:28 82 05/29/24 04:18 36.9 C 81 20 117/71 93 O2 Del Method 05/29/24 11:25 Room Air 05/29/24 07:56 Room Air 05/29/24 07:28 05/29/24 04:18 Room Air PG Care Time/CCT Total # of Minutes Spent Total Time Spent with Patient: Total time spent is greater than 50% in coordination of care (as documented) at patient's floor/unit and/or counseling patient: Coding Level of Care Code 31349 INT INP/OBS CARE MIN Diagnoses Acute kidney injury superimposed on stage 3a chronic kidney disease N17.9; N18.31 HTN (hypertension) I10 Anemia D64.9 Anemia type: unspecified type Left wrist pain M25.532 (3) Anemia Anemia type: unspecified type Qualified Code(s): D64.9 - Anemia, unspecified
--- NOTE | 2024-05-29 12:53 | Hospitalist Progress Note ---
Date of Service May 29, 2024 Assessment & Plan (1) Left wrist pain: Plan: Suspect arthritis, possibly gouty versus pseudogout Left hand x-ray shows chondrocalcinosis, pointing towards pseudogout Uric acid normal ESR elevated Diclofenac ointment Discontinue doxycycline. No cellulitis seen. Start prednisone 40 mg p.o. daily Troponins flat. Echocardiogram negative. No chest pain. Left wrist is swollen and tender. 1 week ago, right wrist was swollen and tender. Noncardiac. (2) Acute kidney injury superimposed on stage 3a chronic kidney disease: Plan: Creatinine bumped to 2.5 from 1.5 on admission Discontinued losartan Patient does not appear to be dehydrated or fluid overloaded Baseline creatinine seems to be around 1.7-1.8 Nephrology consulted Retroperitoneal ultrasound shows no hydronephrosis Likely secondary to contrast exposure versus chronic bladder outlet obstruction although no hydronephrosis seen. Monitor BMP closely Avoid nephrotoxic medications (3) HTN (hypertension): Plan: Blood pressure has been well-controlled yesterday. Today blood pressure is rather on the low side. Currently on metoprolol, amlodipine, Cardura. Hold Norvasc today Switch cardiograph to Flomax given BPH Monitor blood pressure on this regimen Once kidney function stabilizes, may eventually put him back on ARB in the setting of diabetes and CKD (4) Aortic stenosis: Plan: Moderate aortic stenosis on echo in 2022 (5) Diabetes type 2, controlled: Plan: Continue insulin sliding scale He is on glimepiride (6) Dyslipidemia: Plan: Continue statins (7) CAD (coronary artery disease): Plan: Denies chest pain Continue home medicine (8) Atrial flutter: Plan: Patient currently in sinus rhythm Continue amiodarone, metoprolol, Eliquis Plan Full code DVT prophylaxis: Eliquis Admission and Anticipated Discharge Date Admission Date: May 28, 2024 Subjective Patient feels well. Left wrist is getting better. Denies chest pain or shortness of breath Review of Systems Review of Systems: All systems reviewed & are unremarkable except as noted in Subjective Physical Exam Physical Exam: General: Awake, conversant Heart: S1, S2/regular rate and rhythm, no murmur rubs or gallops Lungs: Clear to auscultation bilaterally. Normal effort Abdomen: Soft/nontender/nondistended. No hepatosplenomegaly Extremities: No clubbing/cyanosis. No edema. Left wrist is slightly swollen but less erythematous. Good range of movement. Behavior: Appropriate, cooperative Results & Data Results & Data Vital Signs (Past 12 Hours) Vital Signs Temp Pulse Pulse Resp BP BP Pulse Ox 05/29/24 11:25 36.6 C 80 20 99/64 L 97 05/29/24 07:56 36.6 C 95 H 20 132/79 94 05/29/24 07:28 82 05/29/24 04:18 36.9 C 81 20 117/71 93 O2 Del Method 05/29/24 11:25 Room Air 05/29/24 07:56 Room Air 05/29/24 07:28 05/29/24 04:18 Room Air PG Care Time/CCT Total # of Minutes Spent Total Time Spent with Patient: Total time spent is greater than 50% in coordination of care (as documented) at patient's floor/unit and/or counseling patient: Coding Level of Care Code 39098 SUB INP/OBS CARE 2/35MIN Diagnoses Left wrist pain M25.532 Acute kidney injury superimposed on stage 3a chronic kidney disease N17.9; N18.31 HTN (hypertension) I10 Aortic stenosis I35.0 Diabetes type 2, controlled E11.9 Dyslipidemia E78.5 CAD (coronary artery disease) I25.10 Atrial flutter I48.92
[2024-05-29] MEDS: TAMSULOSIN HCL 0.4 MG CAP PO SCH (20:04)
[2024-05-30 07:15] LABS: Hematocrit (blood only) 36.8 % (42.0-52.0); Mean Corpuscular Hemoglobin 26.7 pg (25.0-34.0); Mean Corpuscular Hgb Conc 32.6 g/dL (32.0-36.0); Mean Corpuscular Volume 81.8 fL (80.0-100.0); Mean Platelet Volume 11.4 fL (9.4-12.4); Platelet Count 190 K/uL (130-400); RDW Coefficient of Variation 18.5 % (11.5-14.5); RDW Standard Deviation 54.8 fL (36.4-46.3); White Blood Count 11.01 K/ul (4.8-10.8)
[2024-05-30 07:32] LABS: Albumin Level 3.5 gm/dl (3.4-5.0); BUN Creatinine Ratio 27.4 (10-20); Calcium 8.4 mg/dl (8.6-10.3); Creatinine Clr Calc Pharmacy 21.8 ml/min; Est GFR (African American) 30.5 ml/min; Est GFR (Non-African American) 26.3 ml/min; Phosphorus 3.7 mg/dl (2.5-4.9); Potassium 4.2 mmol/L (3.5-5.1)
[2024-05-30] MEDS: predniSONE 10 MG TABLET PO SCH (08:57)
--- NOTE | 2024-05-30 10:55 | Nephrology Progress Note ---
Date of Service May 30, 2024 Assessment & Plan (1) Acute kidney injury superimposed on stage 3a chronic kidney disease: (2) HTN (hypertension): (3) Anemia: (4) Left wrist pain: Plan 88-year-old gentleman with stage IIIb CKD, baseline creatinine 1.6-1.8 most likely secondary to microvascular disease with history of coronary artery disease requiring CABG almost 29 years ago, hypertension, diabetes. Urinalysis with low-grade proteinuria and microscopic hematuria. Renal imaging with no hydronephrosis but noted to have BPH with chronic bladder outlet obstructive changes as well as nonobstructing renal calculi and bladder calculi.. Admitted with creatinine 1.5 which seems to be close to baseline but over last few days kidney function worsen and creatinine up to 2.1. Acute kidney injury could be secondary to some component of contrast-induced nephropathy, impaired autoregulation with rapid improvement in blood pressure with underlying diabetes, ?also some effect from chronic bladder outlet obstruction although no hydronephrosis noted. Microscopic hematuria most likely associated with BPH as well as bladder calculi. -- Encourage increase p.o. intake, continue to monitor kidney function electrolyte. -- Would hold discharge until we see clear improvement in kidney function -- Updated over telephone Admission and Anticipated Discharge Date Admission Date: May 28, 2024 Subjective Lexx was seen and evaluated this morning. He reports generally feeling fatigued but no other symptoms, no fever chills. Left wrist pain improved but has some stiffness in both upper extremities. Kidney function staying relatively stable. Review of Systems Review of Systems: Detailed review of system was done and pertinent positives and negatives are mentioned above. Physical Exam Constitutional: WD/WN, vitals as above no acute distress Respiratory: Auscultation: lungs clear to auscultation bilaterally Cardiovascular: Rate/Rhythm: regular rate and regular rhythm Heart Sounds: normal S1 and normal S2 Extremities: no edema Skin: no rashes, warm and dry Neurologic: no focal motor deficits Psychiatric: Orientation: alert and oriented x 3 Affect: euthymic affect Results & Data Vital Signs (Past 12 Hours) Vital Signs Temp Pulse Pulse Resp BP Pulse Ox O2 Del Method 05/30/24 09:00 Room Air 05/30/24 07:52 36.6 C 78 18 148/52 H 93 Room Air 05/30/24 07:00 82 05/30/24 04:00 36.6 C 71 20 135/66 97 Room Air 05/29/24 23:37 36.3 C L 78 20 133/75 92 Room Air 05/29/24 23:00 57 L PG Care Time/CCT Total # of Minutes Spent Total Time Spent with Patient: Total time spent is greater than 50% in coordination of care (as documented) at patient's floor/unit and/or counseling patient: Coding Level of Care Code 41417 SUB INP/OBS CARE 2/35MIN Diagnoses Acute kidney injury superimposed on stage 3a chronic kidney disease N17.9; N18.31 HTN (hypertension) I10 Anemia D64.9 Anemia type: unspecified type Left wrist pain M25.532 (3) Anemia Anemia type: unspecified type Qualified Code(s): D64.9 - Anemia, unspecified
--- NOTE | 2024-05-30 11:59 | Hospitalist Progress Note ---
Date of Service May 30, 2024 Assessment & Plan (1) Left wrist pain: Plan: Suspect arthritis, possibly gouty versus pseudogout Left hand x-ray shows chondrocalcinosis, pointing towards pseudogout Uric acid normal ESR elevated Diclofenac ointment Discontinue doxycycline. No cellulitis seen. Reduce prednisone to 30 mg p.o. daily Troponins flat. Echocardiogram negative. No chest pain. Left wrist is swollen and tender. 1 week ago, right wrist was swollen and tender. Noncardiac. (2) Acute kidney injury superimposed on stage 3a chronic kidney disease: Plan: Creatinine bumped to 2.2 from 1.5 on admission Today creatinine is stable at 2.15. Awaiting downward trend Discontinued losartan Patient does not appear to be dehydrated or fluid overloaded Baseline creatinine seems to be around 1.7-1.8 Nephrology consulted Retroperitoneal ultrasound shows no hydronephrosis Likely secondary to contrast exposure versus chronic bladder outlet obstruction although no hydronephrosis seen. Monitor BMP closely Avoid nephrotoxic medications (3) HTN (hypertension): Plan: Blood pressure has been well-controlled. Currently on metoprolol, amlodipine Switched from Cardura to Flomax Monitor blood pressure on this regimen Once kidney function stabilizes, may eventually put him back on ARB in the setting of diabetes and CKD (4) Aortic stenosis: Plan: Moderate aortic stenosis on echo in 2022 (5) Diabetes type 2, controlled: Plan: Continue insulin sliding scale He is on glimepiride (6) Dyslipidemia: Plan: Continue statins (7) CAD (coronary artery disease): Plan: Denies chest pain Continue home medicine (8) Atrial flutter: Plan: Patient currently in sinus rhythm Continue amiodarone, metoprolol, Eliquis Plan Full code DVT prophylaxis: Eliquis Admission and Anticipated Discharge Date Admission Date: May 28, 2024 Subjective Patient feels well. Denies chest pain or shortness of breath. Left wrist feels much better. Review of Systems Review of Systems: All systems reviewed & are unremarkable except as noted in Subjective Physical Exam Physical Exam: General: Awake, conversant Heart: S1, S2/regular rate and rhythm, no murmur rubs or gallops Lungs: Clear to auscultation bilaterally. Normal effort Abdomen: Soft/nontender/nondistended. No hepatosplenomegaly Extremities: No clubbing/cyanosis. No edema. Left wrist no more swollen or red. Good range of movement. Behavior: Appropriate, cooperative Results & Data Results & Data Vital Signs (Past 12 Hours) Vital Signs Temp Pulse Pulse Resp BP Pulse Ox O2 Del Method 05/30/24 11:36 36.5 C 61 18 103/64 98 Room Air 05/30/24 09:00 Room Air 05/30/24 07:52 36.6 C 78 18 148/52 H 93 Room Air 05/30/24 07:00 82 05/30/24 04:00 36.6 C 71 20 135/66 97 Room Air Laboratory Results Abnormal lab results 05/29/24 05/29/24 05/30/24 Range/Units 17:07 20:22 06:52 WBC 11.01 H (4.8-10.8) K/ul RBC 4.50 L (4.70-6.10) M/uL Hgb 12.0 L (14.0-18.0) g/dl Hct 36.8 L (42.0-52.0) % RDW Std Deviation 54.8 H (36.4-46.3) fL RDW Coeff of Cyndi 18.5 H (11.5-14.5) % Chloride 108 H (98-107) mmol/L BUN 59 H (6-23) mg/dl Creatinine 2.15 H (0.6-1.4) mg/dl BUN/Creatinine Ratio 27.4 H (10-20) Glucose 153 H (70-99(Fasting)) mg/dl POC Glucose 171 H 245 H (70-99) mg/dl Calcium 8.4 L (8.6-10.3) mg/dl 05/30/24 Range/Units 07:58 WBC (4.8-10.8) K/ul RBC (4.70-6.10) M/uL Hgb (14.0-18.0) g/dl Hct (42.0-52.0) % RDW Std Deviation (36.4-46.3) fL RDW Coeff of Cyndi (11.5-14.5) % Chloride (98-107) mmol/L BUN (6-23) mg/dl Creatinine (0.6-1.4) mg/dl BUN/Creatinine Ratio (10-20) Glucose (70-99(Fasting)) mg/dl POC Glucose 167 H (70-99) mg/dl Calcium (8.6-10.3) mg/dl PG Care Time/CCT Total # of Minutes Spent Total Time Spent with Patient: Total time spent is greater than 50% in coordination of care (as documented) at patient's floor/unit and/or counseling patient: Coding Level of Care Code 08922 SUB INP/OBS CARE 2/35MIN Diagnoses Left wrist pain M25.532 Acute kidney injury superimposed on stage 3a chronic kidney disease N17.9; N18.31 HTN (hypertension) I10 Aortic stenosis I35.0 Diabetes type 2, controlled E11.9 Dyslipidemia E78.5 CAD (coronary artery disease) I25.10 Atrial flutter I48.92
[2024-05-31 06:49] LABS: Albumin Level 3.5 gm/dl (3.4-5.0); Calcium 8.3 mg/dl (8.6-10.3); Creatinine Clr Calc Pharmacy 23.1 ml/min; Est GFR (African American) 32.7 ml/min; Est GFR (Non-African American) 28.2 ml/min; Phosphorus 3.5 mg/dl (2.5-4.9); Potassium 4.3 mmol/L (3.5-5.1)
[2024-05-31 07:54] VITALS: RESP 18
[2024-05-31] MEDS: predniSONE 20 MG TAB PO SCH (09:13)
--- NOTE | 2024-05-31 11:22 | Nephrology Progress Note ---
Date of Service May 31, 2024 Assessment & Plan (1) Acute kidney injury superimposed on stage 3a chronic kidney disease: (2) HTN (hypertension): (3) Anemia: (4) Left wrist pain: Plan 88-year-old gentleman with stage IIIb CKD, baseline creatinine 1.6-1.8 most likely secondary to microvascular disease with history of coronary artery disease requiring CABG almost 29 years ago, hypertension, diabetes. Urinalysis with low-grade proteinuria and microscopic hematuria. Renal imaging with no hydronephrosis but noted to have BPH with chronic bladder outlet obstructive changes as well as nonobstructing renal calculi and bladder calculi.. Admitted with creatinine 1.5 which seems to be close to baseline but over last few days kidney function worsen and creatinine up to 2.1. Acute kidney injury could be secondary to some component of contrast-induced nephropathy, impaired autoregulation with rapid improvement in blood pressure with underlying diabetes, ?also some effect from chronic bladder outlet obstruction although no hydronephrosis noted. Microscopic hematuria most likely associated with BPH as well as bladder calculi. Slight improvement in kidney function noted, creatinine seems to be getting close to baseline, electrolyte acceptable. Volume status acceptable. -- Encourage increase p.o. intake, continue to monitor kidney function electrolyte. -- Okay to be discharged from nephrology standpoint, should have outpatient lab in a week after discharge. Admission and Anticipated Discharge Date Admission Date: May 28, 2024 Li Hallman was seen and evaluated this morning. He reports generally feeling well, denies any symptoms. Left wrist pain improved but has some stiffness in both upper extremities. Kidney function staying relatively stable, although slight improvement in creatinine noted, electrolyte acceptable. No sign of volume overload. Blood pressure remained quite variable. Review of Systems Review of Systems: Detailed review of system was done and pertinent positives and negatives are mentioned above. Physical Exam Constitutional: WD/WN, vitals as above no acute distress Respiratory: no respiratory distress Auscultation: lungs clear to auscultation bilaterally Cardiovascular: Rate/Rhythm: regular rate and regular rhythm Heart Sounds: normal S1 and normal S2 Extremities: no edema Musculoskeletal: Extremities: extremities normal to inspection Skin: no rashes, warm and dry Neurologic: no focal motor deficits Psychiatric: Orientation: alert and oriented x 3 Affect: euthymic affect Results & Data Vital Signs (Past 12 Hours) Vital Signs Temp Pulse Pulse Resp BP Pulse Ox O2 Del Method 05/31/24 07:53 36.5 C 57 L 18 165/75 H 94 Room Air 05/31/24 07:34 61 05/31/24 04:20 36.6 C 59 L 20 156/73 H 94 Room Air PG Care Time/CCT Total # of Minutes Spent Total Time Spent with Patient: Total time spent is greater than 50% in coordination of care (as documented) at patient's floor/unit and/or counseling patient: Coding Level of Care Code 16225 SUB INP/OBS CARE 2/35MIN Diagnoses Acute kidney injury superimposed on stage 3a chronic kidney disease N17.9; N18.31 HTN (hypertension) I10 Anemia D64.9 Anemia type: unspecified type Left wrist pain M25.532 (3) Anemia Anemia type: unspecified type Qualified Code(s): D64.9 - Anemia, unspecified
[2024-05-31 11:35] VITALS: BP 142/76; PULSE 61; TEMP 97.5; O2SAT 96
--- NOTE | 2024-05-31 12:15 | Discharge Summary ---
Date of Service May 31, 2024 Admission HPI Per Admitting Provider 88-year-old male with past medical history significant for aortic stenosis, last echo 2022 moderate aortic stenosis, CAD CABG x 3 in 1994, atrial flutter, he is on Eliquis amiodarone metoprolol, recent upper respiratory tract infection, resolved. Chronic kidney disease stage III. patient presents today with left hand redness and swelling and pain started yesterday. He denies chest pain or shortness of breath. Denies fever, chills or cough. Blood work in the ER consistent with elevated creatinine 1.57 , last creatinine 1.7 in December . first troponin is 39, repeated 110. Patient had a CTA in the emergency room patient had a CTA in the ER. no PE. Moderate cardiomegaly. Patient denies shortness of breath. Admission Exam Per Admitting Provider Head atraumatic normocephalic neck supple, no lymphadenopathy Chest clear to auscultation bilaterally Heart S1-S2 regular, systolic murmur present Abdomen soft nontender nondistended, bowel sounds present Extremities left hand has some redness and swelling, warm to touch Lower extremities right lower extremity swelling, chronic no other findings Neuro alert awake oriented x 3, no focal neurological deficit Principal Diagnosis Left wrist pain most likely due to gout or pseudogout arthritis Acute kidney injury superimposed on stage III CKD, likely secondary to contrast-induced nephropathy Benign essential hypertension Discharge Exam General: Awake, conversant Heart: S1, S2/regular rate and rhythm, no murmur rubs or gallops Lungs: Clear to auscultation bilaterally. Normal effort Abdomen: Soft/nontender/nondistended. No hepatosplenomegaly Extremities: No clubbing/cyanosis. No edema. Left wrist no more swollen or red. Good range of movement. Behavior: Appropriate, cooperative Discharge Data Allergies Allergy/AdvReac Type Severity Reaction Status Date / Time Penicillins Allergy Unknown Generalized Verified 05/26/24 09:45 and facial swelling shellfish derived Allergy Unknown Generalized Verified 05/26/24 09:45 and facial swelling Sulfa (Sulfonamide Allergy Unknown Generalized Verified 05/26/24 09:45 Antibiotics) and facial swelling sitagliptin [From Octuv] AdvReac Severe Diarrhea Verified 05/26/24 09:45 Consultations 05/26/24 12:39 ED Decision to Admit Stat 05/29/24 07:34 Consult Nephrology Routine Ordered Studies 05/26/24 10:34 CT angio chest dissec wo/w con Stat 05/29/24 07:18 US renal/blad retro comp Urgent Hospital Course (1) Left wrist pain: Suspect arthritis, possibly gouty versus pseudogout Left hand x-ray shows chondrocalcinosis, pointing towards pseudogout Uric acid normal ESR elevated Diclofenac ointment Discontinue doxycycline. No cellulitis seen. Reduce prednisone to 20 mg p.o. daily. Discharged on a tapering dose Troponins flat. Echocardiogram negative. No chest pain. Left wrist is swollen and tender. 1 week ago, right wrist was swollen and tender. Noncardiac. (2) Acute kidney injury superimposed on stage 3a chronic kidney disease: Creatinine bumped to 2.2 from 1.5 on admission Today creatinine is stable at 2.05 On a downward trend Discontinued losartan Patient does not appear to be dehydrated or fluid overloaded Baseline creatinine seems to be around 1.7-1.8 Nephrology consulted and has cleared the patient for discharge Retroperitoneal ultrasound shows no hydronephrosis Likely secondary to contrast exposure versus chronic bladder outlet obstruction although no hydronephrosis seen. Ordered a BMP to be drawn in 1 week prior to PCP appointment Avoid nephrotoxic medications (3) HTN (hypertension): Blood pressure has been well-controlled. Currently on metoprolol, amlodipine Discharged on Flomax as the patient also has chronic bladder outlet obstruction and likely BPH Blood pressure fairly controlled on this regimen Once kidney function stabilizes, may eventually put him back on ARB in the setting of diabetes and CKD (4) Aortic stenosis: Moderate aortic stenosis on echo in 2022 (5) Diabetes type 2, controlled: Continue insulin sliding scale He is on glimepiride (6) Dyslipidemia: Continue statins (7) CAD (coronary artery disease): Denies chest pain Continue home medicine (8) Atrial flutter: Patient currently in sinus rhythm Continue amiodarone, metoprolol, Eliquis Plan Discharge to home Total Time Total Time Spent Total Time Spent (In Minutes): 35 Discharge Plan Discharge Items Patient Disposition: Home - Self-Care Reason For Visit: left hand pain Discharge Diagnosis: Left wrist pain most likely due to gout or pseudogout arthritis Acute kidney injury superimposed on stage III CKD, likely secondary to contrast-induced nephropathy Benign essential hypertension Condition on Discharge: Fair Activity: Resume your previous activity Non-emergency contact: Primary Care Provider Call non-emergency contact if: you have any medication questions and your symptoms worsen Follow-up/Referrals: Munir Andino III, CRNP [Primary Care Provider] - 06/12/24 9:20 am Diet: Carb Consistent or DM2 and Heart Healthy Ambulatory Orders: Basic Metabolic Panel (Routine) Timeframe: 1 Week Location: Determined by Patient Ordered By: Lindsay Watts Attending Provider Instructions: Advised to follow-up with PCP in 1 week Advised to note that you need to get blood work done within 1 week, prior to PCP appointment Pending Studies at Discharge: No Stand-Alone Forms: My [facility] Medications and DC Order Prescriptions: New tamsulosin 0.4 mg Capsule 0.4 mg PO HS 30 Days Qty: 30 0RF prednisone 10 mg tablet 10 mg PO DAILY Qty: 6 0RF Rx Instructions: 2 tabs for 2 days, then 1 tab for 2 days, then stop amlodipine [Norvasc] 5 mg Tablet 10 mg PO QAM 30 Days Qty: 60 0RF Continued niacin 500 mg tablet 500 mg PO QAM cholecalciferol (vitamin D3) 50 mcg (2,000 unit) capsule 5,000 unit PO QAM Patient Comments: states the bottle says 125 mcg (5,000) levothyroxine [Synthroid] 100 mcg tablet 100 mcg PO DAILY Qty: 90 1RF rosuvastatin 10 mg tablet 10 mg PO HS Qty: 90 1RF amiodarone 200 mg tablet 200 mg PO DAILY Qty: 90 3RF metoprolol tartrate 25 mg tablet 12.5 mg PO BID Qty: 30 5RF glyburide 1.25 mg tablet 1.25 mg PO BID apixaban 2.5 mg tablet 2.5 mg PO BID Qty: 180 3RF Hold Instructions: Resume on 04/23/23. Restart on 04/23/23 as long as there is no further bright red blood in your urine. ferrous sulfate 27 mg iron Tablet 27 mg PO QAM Patient Comments: not too much lately/trouble with constipation nitroglycerin 0.4 mg tablet, sublingual 0.4 mg sublingual Q5M PRN (Reason: chest pain) Qty: 25 0RF memantine 10 mg tablet 10 mg PO HS Discharge Orders: Discharge Order (Routine); Ordered 05/31/24 Ordered By: Lindsay Rosenbaum Admission Data Admit Date/Time: 05/28/24 12:23 Attending Provider: Lindsay Rosenbaum Admit Provider: Veronica Taylor Primary Care Provider: Munir Andino III Other Providers: Veronica Taylor; Julia Lechuga; IRB Approved Study,[place]
== END 2024-05-31 13:17 | disposition home or self-care (01) | DRG 554 ==
LOC: ED 09:23 → 2W 09:23 → SUATTDRO 13:44 → 2W 14:18
DX: N18.31 Chronic kidney disease, stage 3a; E78.5 Hyperlipidemia, unspecified; F03.90 Unspecified dementia, unspecified severity, without behavioral disturbance, psychotic disturbance, mood disturbance, and anxiety; Z95.1 Presence of aortocoronary bypass graft; I12.9 Hypertensive chronic kidney disease with stage 1 through stage 4 chronic kidney disease, or unspecified chronic kidney disease; N17.9 Acute kidney failure, unspecified; E11.22 Type 2 diabetes mellitus with diabetic chronic kidney disease; R79.89 Other specified abnormal findings of blood chemistry; Z88.0 Allergy status to penicillin; R20.0 Anesthesia of skin; D64.9 Anemia, unspecified; Z88.8 Allergy status to other drugs, medicaments and biological substances; Z79.01 Long term (current) use of anticoagulants; N14.11 Contrast-induced nephropathy; I48.92 Unspecified atrial flutter; M11.232 Other chondrocalcinosis, left wrist

== ENCOUNTER 2024-09-02 11:56 | Inpatient (IN) ==
--- NOTE | 2024-09-02 12:27 | Emergency Department Note ---
Impression & Plan Right leg weakness, Acute urinary retention ED Provider Note HISTORY OF PRESENT ILLNESS: Patient is an 88-year-old male presenting with weakness. Patient reports that he has had progressively worsening bilateral lower extremity weakness over the last week or so. He states that his right leg seems worse over the last 24 hours. He states he normally ambulates with a walker at baseline, but today was unable to get up out of his recliner secondary to weakness in the right leg. He also had an episode of urinary incontinence today. He states that he fell about 10 days ago. He has a history of a cadaver bone in his neck from a previous traumatic injury in 1999 and is scheduled to have an MRI in the outpatient setting of his cervical spine ordered by his primary care provider. He denies any numbness or tingling in his upper extremities. He denies any chest pain or shortness of breath. Patient is on Eliquis. ROS: as above PHYSICAL EXAM: Constitutional: Patient appears in no acute distress. HENT: Head: Normocephalic and atraumatic. Eyes: EOMI, PERRL Mouth/Throat: Mucous membranes moist. Neck: Trachea midline. Neck supple. Cervical collar in place. No midline cervical spine tenderness to palpation. Cardiovascular: Irregular rhythm. No murmurs, rubs or gallops. Intact distal pulses. Pulmonary/Chest: No respiratory distress. Breath sounds clear and equal bilaterally. No wheezes or rales. No chest wall tenderness to palpation. Abdominal: Abdomen soft, no tenderness, rebound or guarding. Back: Patient is able to straight leg raise bilaterally. Palpation Tenderness: none Step-Off: none Wounds/Lacerations/Deformities: None Clonus: no beats Babinski: downgoing bilaterally Sensation Testing: - RLE: SILT L1-S2 - LLE: SILT L1-S2 Motor Testing: Hip Flex (L2): R 5/5; L 5/5 Knee Ext (L3): R 5/5; L 5/5 Ankle DF (L4): R 5/5; L 5/5 GT Ext (L5): R 5/5; L 5/5 Ankle PF (S1): R 5/5; L 5/5 Musculoskeletal: No edema, tenderness or deformity noted. Skin: Warm and dry. No rash, erythema, pallor or cyanosis Psychiatric: Appropriate mood and affect for situation. Neurological: Alert and keenly responsive. Facies symmetric. Able to raise eyebrows, close eyes, smile, puff mouth, stick out tongue, move tongue left and right and raise palate symmetrically. Able to shrug shoulders. PERRLA. SILT to forehead below eye and at jawline. Can hear soft noise bilaterally. Strength 5/5 in bilateral upper and lower extremities. SILT throughout bilateral upper and lower extremities. MDM: - Vitals signs showed hypertension. - History obtained via patient. History as above. - Chronic conditions affecting care: DM-2; CKD; dementia; pulmonary hypertension; hypothyroidism; HTN - Differential diagnoses include, but are not limited to: Cauda equina; cervical cord injury; ACS; UTI; pneumonia; viral syndrome - Order placed for continuous cardiac monitoring. At this time, monitor showed rate of 64 bpm with irregular rhythm, per my interpretation. - External medical records reviewed. Wellness visit note dated 08/14/2024 was reviewed. Patient had basic laboratory tests ordered at that visit for monitoring of his chronic medical problems. - EKG interpreted by myself showed atrial fibrillation. Rate 63 bpm. QT 470. No acute ischemic changes. - Laboratory workup interpreted by myself showed normal WBC; elevated INR (1.2); normal lactate; CKD (Cr 1.73); elevated troponin (44.0); normal TSH - CXR negative for pneumonia, per my interpretation - Viral respiratory panel negative - CT head wo contrast negative for acute pathology - CT cervical spine negative for acute injury - CT lumbar spine wo contrast noted to have severe degenerative changes at multiple levels. - The patient's cervical collar was removed today. The patient's imaging was reviewed and the CT C-Spine was negative for acute injury. The patient was alert and oriented prior to his exam. On exam, he was non-tender to palpation midline and had full ROM without any neurologic deficits. The patient tolerated this procedure well. - Patient did have the sensation that he needed to pee but could not. He was bladder scanned for just over 300. Straight cath was performed and urinalysis sent. - Patient is not a candidate for TNK, given his multiple days worth of symptoms. I do think he warrants some further workup in the inpatient setting including an MRI of his brain and potentially of his lower lumbar spine. Though he is having urinary retention, he is not having any appreciable weakness in his lower extremities or sensation abnormalities to suggest cauda equina. In addition, his symptoms seem to be located to just his lower extremity, so an upper cervical spine cord injury is deemed to be less likely given his lack of upper extremity symptoms. - Discussion was had with correctional case records supervisor about patient's case and need for admission - Hospitalist consulted for admission - [facility] ASSESSMENT AND PLAN: Diagnosis: Right leg weakness; acute urinary retention Plan: Admit Past Med/Surg History Problem List (Updated 09/02/24 @ 16:40 by Edyta Marinelli MD) Acute urinary retention (Acute) Right leg weakness (Acute) Diabetic ulcer of right foot (Acute) Diabetic ulcer of left foot associated with diabetes mellitus due to underlying condition, limited to breakdown of skin (Acute) Anemia (Acute) Hypothyroidism Aortic stenosis Echo 04/2023: Moderate aortic stenosis (TK 1.1 cm, MG 19.9 mmHg) Diabetes type 2, controlled HTN (hypertension) Dyslipidemia CAD (coronary artery disease) s/p CABG x3 (1994) Atrial flutter (Acute) Personal history of diabetic foot ulcer Diabetic peripheral neuropathy associated with type 2 diabetes mellitus (Chronic) PAD (peripheral artery disease) (Chronic) s/p right SFA angioplasty Enlarged prostate without lower urinary tract symptoms (luts) (Chronic) Retention of urine, unspecified (Chronic) Tricuspid regurgitation Nocturia Memory change Medical History (Updated 09/02/24 @ 16:40 by Edyta Marinelli MD) Acute kidney injury superimposed on stage 3a chronic kidney disease Nephrolithiasis Hx of non-ST elevation myocardial infarction (NSTEMI) 11/2022 Heart murmur Mild pulmonary hypertension Echo 04/2023: Mild pulmonary hypertension. Estimated RVSP 41 mmHg. Dementia Noted in records, unsure if official diagnosis Anemia Chronic, baseline 11-13 range per chart review CKD (chronic kidney disease), stage III Surgical History (Updated 08/14/24 @ 17:14 by ABDIRIZAK Phan III) History of coronary artery bypass graft x 3 S/P closed reduction of dislocated total hip prosthesis History of anesthesia reaction Confusion with hip surgery History of total left hip arthroplasty History of cardioversion x3 History of incision and drainage Right heel I&D, antibiotic beads: 04/06/19: SAB x 1 at L3/L4 at [facility] Difficult airway for intubation Right ELLEN (03/24/17): Elective Glidescope #4 due to limited ROM, ETT #7.5, HiLo Straight, Grade 2 View with Large Epiglottis (no specific indication why SAB not used) History of hip surgery x2 for dislocation right (s/p right ELLEN) History of total right hip arthroplasty History of colonoscopy History of repair of left rotator cuff History of fracture Collar bone > surgical repair History of tonsillectomy History of hernia surgery Right inguinal History of appendectomy History of vascular surgery right heel vascular procedure (Dr. Barbour) History of neck surgery C4-5 "cadaver bone" "Limited ROM" History of cardiac cath 1994 > subsequent CABG x3 Hx of CABG (~1994) CABG x 3 (1994) Family History Mother Alzheimer disease Father Arthritis Denies family history of Ovarian cancer Prostate cancer Myocardial infarction Breast cancer Colorectal cancer Social History (Updated 08/14/24 @ 14:13 by RAFIQ Aden) Smoking Status: Never smoker Tobacco Type: Cigarettes Age Started Using Tobacco: 17; Age Quit Using Tobacco: 24; packs per day: 1; Second Hand Exposure: No; Do You Dip or Chew Tobacco: No; Hx Alcohol Use: No Hx Substance Use: No Preferred Language: [place] Communication Ability: Effective Communication Ability Comment: pt currently doing PT / (BIN) does phone interview. Pt helps. 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 How many Children do You have: 0 Feels Safe at Home: Yes Childhood Exposure to Second-Hand Smoke: No Diet: low salt and regular caffeine: Yes Dental Care, Regularly: Yes Physical Activity Frequency: Does not Exercise Seatbelt Use: always Sunscreen Use: No Do you think of yourself as: straight/heterosexual Gender Identity: Male Assistive Devices: Cane, Walker and Wheelchair Allergies Allergies Allergy/AdvReac Type Severity Reaction Status Date / Time Penicillins Allergy Unknown Generalized Verified 08/22/24 13:37 and facial swelling shellfish derived Allergy Unknown Generalized Verified 08/22/24 13:37 and facial swelling Sulfa (Sulfonamide Allergy Unknown Generalized Verified 08/22/24 13:37 Antibiotics) and facial swelling sitagliptin [From ] AdvReac Severe Diarrhea Verified 08/22/24 13:37 Home Meds Home Medications Medication Instructions Recorded Confirmed niacin 500 mg tablet 500 mg PO QAM 12/24/21 08/22/24 cholecalciferol (vitamin D3) 50 5,000 unit PO QAM 11/26/22 08/22/24 mcg (2,000 unit) capsule ferrous sulfate 27 mg iron tablet 27 mg PO QAM 01/20/23 08/22/24 glyburide 1.25 mg tablet 1.25 mg PO BID 11/08/23 08/22/24 Previous Rx's Medication Instructions Recorded nitroglycerin 0.4 mg sublingual 0.4 mg sublingual Q5M PRN chest 11/25/22 tablet pain #25 tabs metoprolol tartrate 25 mg tablet 12.5 mg (1/2 x 25 mg) PO BID #30 07/04/23 tabs rosuvastatin 10 mg tablet 10 mg PO HS #90 tabs 03/15/24 amiodarone 200 mg tablet 200 mg PO DAILY #90 tabs 05/21/24 amlodipine 10 mg tablet 10 mg PO DAILY #90 tabs 06/12/24 memantine 10 mg tablet 10 mg PO HS #90 tabs 06/12/24 levothyroxine 100 mcg tablet 100 mcg PO DAILY #90 tabs 08/09/24 (Synthroid) apixaban 2.5 mg tablet 2.5 mg PO BID #180 tabs 08/20/24 Results & Data (ED) Vital Signs Vital Signs - 24 hr 09/02/24 12:05 09/02/24 12:11 09/02/24 12:15 Temperature 36.5 C Temperature Source Oral Pulse Rate 63 63 63 Pulse Rate [Left Apical] Pulse Rhythm [Left Apical] Pulse Strength [Left Apical] Respiratory Rate 16 21 Respiratory Effort / Characteristics Non-Labored Spontaneous Respiratory Depth Normal Respiratory Pattern Regular Blood Pressure 167/89 H Blood Pressure [Right Arm] Blood Pressure Mean 115 Blood Pressure Mean [Right Arm] Blood Pressure Position [Right Arm] Pulse Oximetry 95 Oxygen Delivery Method Room Air Sepsis Recent Fever Within 48 Hours No Sepsis New/Unexplained Change in Mental Status N/A Sepsis Action Taken by Nursing No Action Required 09/02/24 12:30 09/02/24 12:36 09/02/24 12:37 Temperature Temperature Source Pulse Rate 74 63 Pulse Rate [Left Apical] Pulse Rhythm [Left Apical] Pulse Strength [Left Apical] Respiratory Rate 22 22 Respiratory Effort / Characteristics Respiratory Depth Respiratory Pattern Blood Pressure 180/103 H Blood Pressure [Right Arm] Blood Pressure Mean 124 Blood Pressure Mean [Right Arm] Blood Pressure Position [Right Arm] Pulse Oximetry Oxygen Delivery Method Sepsis Recent Fever Within 48 Hours Sepsis New/Unexplained Change in Mental Status Sepsis Action Taken by Nursing 09/02/24 12:57 09/02/24 13:30 09/02/24 13:46 Temperature Temperature Source Pulse Rate 60 Pulse Rate [Left Apical] 61 Pulse Rhythm [Left Apical] Pulse Strength [Left Apical] Respiratory Rate 26 H 20 Respiratory Effort / Characteristics Non-Labored Spontaneous Respiratory Depth Normal Respiratory Pattern Regular Blood Pressure Blood Pressure [Right Arm] 145/68 H 151/84 H Blood Pressure Mean Blood Pressure Mean [Right Arm] 93 106 Blood Pressure Position [Right Arm] Semi-fowlers Pulse Oximetry 95 Oxygen Delivery Method Room Air Sepsis Recent Fever Within 48 Hours Sepsis New/Unexplained Change in Mental Status Sepsis Action Taken by Nursing 09/02/24 14:09 09/02/24 15:32 09/02/24 16:20 Temperature Temperature Source Pulse Rate 60 64 Pulse Rate [Left Apical] 59 L Pulse Rhythm [Left Apical] Regular Pulse Strength [Left Apical] Normal Respiratory Rate 19 Respiratory Effort / Characteristics Respiratory Depth Respiratory Pattern Blood Pressure Blood Pressure [Right Arm] 180/87 H Blood Pressure Mean Blood Pressure Mean [Right Arm] 118 Blood Pressure Position [Right Arm] Lying Pulse Oximetry 95 96 Oxygen Delivery Method Room Air Room Air Sepsis Recent Fever Within 48 Hours Sepsis New/Unexplained Change in Mental Status Sepsis Action Taken by Nursing Laboratory Data 09/02/24 12:10 09/02/24 12:10 Lab Results 09/02/24 09/02/24 09/02/24 Range/Units 12:10 12:29 12:42 WBC 9.47 (4.8-10.8) K/ul RBC 4.70 (4.70-6.10) M/uL Hgb 12.9 L (14.0-18.0) g/dl Hct 40.3 L (42.0-52.0) % MCV 85.7 (80.0-100.0) fL MCH 27.4 (25.0-34.0) pg MCHC 32.0 (32.0-36.0) g/dL RDW Std Deviation 50.0 H (36.4-46.3) fL RDW Coeff of Cyndi 16.0 H (11.5-14.5) % Plt Count 219 (130-400) K/uL MPV 10.9 (9.4-12.4) fL Immature Gran % (Auto) 0.2 % Neut % (Auto) 72.5 % Lymph % (Auto) 13.1 % Banks % (Auto) 10.8 % Eos % (Auto) 2.9 % Baso % (Auto) 0.5 % Neut # (Auto) 6.87 H (1.40-6.50) K/uL Lymph # (Auto) 1.24 (1.20-3.40) K/uL Banks # (Auto) 1.02 H (0.11-0.59) K/uL Eos # (Auto) 0.27 (0.00-0.50) K/uL Baso # (Auto) 0.05 (0.00-0.20) K/uL Immature Gran # (Auto) 0.02 (0.01-0.20) K/uL PT 12.4 H (9.0-12.0) Seconds INR 1.2 H (0.9-1.1) Sodium 142 (136-145) mmol/L Potassium 4.5 (3.5-5.1) mmol/L Chloride 108 H (98-107) mmol/L Carbon Dioxide 25 (21-32) mmol/L Anion Gap 9 (3-11) BUN 27 H (6-23) mg/dl Creatinine 1.73 H (0.6-1.4) mg/dl Est Cr Clr Drug Dosing 28.2 ml/min eGFR 37.27 BUN/Creatinine Ratio 15.6 (10-20) Glucose 100 H (70-99(Fasting)) mg/dl Lactate 1.5 (0.4-2.0) mmol/L Calcium 9.7 (8.6-10.3) mg/dl Magnesium 1.9 (1.7-2.4) mg/dl Total Bilirubin 0.9 (0.2-1.0) mg/dl AST 30 (13-39) U/L ALT 26 (7-52) U/L Alkaline Phosphatase 96 (34-104) U/L Troponin I High Sens 44.0 H (0-20) pg/ml Total Protein 7.3 (6.0-8.3) gm/dl Albumin 3.8 (3.4-5.0) gm/dl Globulin 3.5 (2.5-4.0) gm/dl Albumin/Globulin Ratio 1.1 (0.9-2) TSH 0.834 (0.300-4.500) uIu/ml Adenovirus (PCR) Not Detected (NotDetected) B. pertussis DNA (PCR) Not Detected (NotDetected) B.parapertussis DNA PCR Not Detected (NotDetected) C. pneumoniae DNA (PCR) Not Detected (NotDetected) Coronavirus OC43 (PCR) Not Detected (NotDetected) Coronavirus HKU1 (PCR) Not Detected (NotDetected) Coronavirus 229E (PCR) Not Detected (NotDetected) SARS-CoV-2 (PCR) Not Detected (NotDetected) Coronavirus NL63 (PCR) Not Detected (NotDetected) Human Metapneumovir PCR Not Detected (NotDetected) Influenza Type A (PCR) Not Detected (NotDetected) Influenza Type B (PCR) Not Detected (NotDetected) M. pneumoniae (PCR) Not Detected (NotDetected) Parainfluenza 1 (PCR) Not Detected (NotDetected) Parainfluenza 2 (PCR) Not Detected (NotDetected) Parainfluenza 3 (PCR) Not Detected (NotDetected) Parainfluenza 4 (PCR) Not Detected (NotDetected) RSV (PCR) Not Detected (NotDetected) Entero/Rhino (PCR) Not Detected (NotDetected) 09/02/24 Range/Units 14:10 WBC (4.8-10.8) K/ul RBC (4.70-6.10) M/uL Hgb (14.0-18.0) g/dl Hct (42.0-52.0) % MCV (80.0-100.0) fL MCH (25.0-34.0) pg MCHC (32.0-36.0) g/dL RDW Std Deviation (36.4-46.3) fL RDW Coeff of Cyndi (11.5-14.5) % Plt Count (130-400) K/uL MPV (9.4-12.4) fL Immature Gran % (Auto) % Neut % (Auto) % Lymph % (Auto) % Banks % (Auto) % Eos % (Auto) % Baso % (Auto) % Neut # (Auto) (1.40-6.50) K/uL Lymph # (Auto) (1.20-3.40) K/uL Banks # (Auto) (0.11-0.59) K/uL Eos # (Auto) (0.00-0.50) K/uL Baso # (Auto) (0.00-0.20) K/uL Immature Gran # (Auto) (0.01-0.20) K/uL PT (9.0-12.0) Seconds INR (0.9-1.1) Sodium (136-145) mmol/L Potassium (3.5-5.1) mmol/L Chloride (98-107) mmol/L Carbon Dioxide (21-32) mmol/L Anion Gap (3-11) BUN (6-23) mg/dl Creatinine (0.6-1.4) mg/dl Est Cr Clr Drug Dosing ml/min eGFR BUN/Creatinine Ratio (10-20) Glucose (70-99(Fasting)) mg/dl Lactate (0.4-2.0) mmol/L Calcium (8.6-10.3) mg/dl Magnesium (1.7-2.4) mg/dl Total Bilirubin (0.2-1.0) mg/dl AST (13-39) U/L ALT (7-52) U/L Alkaline Phosphatase (34-104) U/L Troponin I High Sens 43.0 H (0-20) pg/ml Total Protein (6.0-8.3) gm/dl Albumin (3.4-5.0) gm/dl Globulin (2.5-4.0) gm/dl Albumin/Globulin Ratio (0.9-2) TSH (0.300-4.500) uIu/ml Adenovirus (PCR) (NotDetected) B. pertussis DNA (PCR) (NotDetected) B.parapertussis DNA PCR (NotDetected) C. pneumoniae DNA (PCR) (NotDetected) Coronavirus OC43 (PCR) (NotDetected) Coronavirus HKU1 (PCR) (NotDetected) Coronavirus 229E (PCR) (NotDetected) SARS-CoV-2 (PCR) (NotDetected) Coronavirus NL63 (PCR) (NotDetected) Human Metapneumovir PCR (NotDetected) Influenza Type A (PCR) (NotDetected) Influenza Type B (PCR) (NotDetected) M. pneumoniae (PCR) (NotDetected) Parainfluenza 1 (PCR) (NotDetected) Parainfluenza 2 (PCR) (NotDetected) Parainfluenza 3 (PCR) (NotDetected) Parainfluenza 4 (PCR) (NotDetected) RSV (PCR) (NotDetected) Entero/Rhino (PCR) (NotDetected) Imaging Data Radiologist's Impression: Cervical Spine CT 09/02/24 12:23 EXAM: CT Cervical Spine Without Intravenous Contrast INDICATION: Right-sided weakness TECHNIQUE: Axial computed tomography images of the cervical spine without intravenous contrast. Sagittal and coronal reformatted images were created and reviewed. This CT exam was performed using one or more of the following dose reduction techniques: automated exposure control, adjustment of the mA and/or kV according to patient size, and/or use of iterative reconstruction technique. COMPARISON: 07/11/2023 FINDINGS: Limitations: None. Vertebrae: The bones are demineralized with stable diffuse moderate to severe facet arthrosis, spondylosis and spo uncal spurring. No acute fracture. No traumatic subluxation. There is stable degenerative grade 1 anterolisthesis C3 on C4. Discs/spinal canal/neural foramina: Stable extensive degenerative moderate to severe changes of the intervertebral discs. There is multilevel mild to moderate canal and foraminal stenosis most notable at C3-C4 asymmetric on the left. There is extensive ligamentous ossification at C1-C2 with canal stenosis stable. Soft tissues: No significant abnormality noted. Lung apices: No significant abnormality noted. IMPRESSION: Stable severe degenerative changes including multilevel foraminal and canal stenosis. ACT 112: Negative or not required by law. Electronically signed by Alix Sarabia 09-02-2024 2:47 PM Chest X-Ray 09/02/24 12:23 XR chest 1V portable HISTORY: 88 years-old Male weakness COMPARISON: 05/26/2024 TECHNIQUE: AP view of the chest FINDINGS: Cardiac silhouette is enlarged. Median sternotomy with mediastinal surgical clips and mild chronic interstitial coarsening. No pneumothorax, pleural effusion or overt pulmonary edema. Degenerative changes of the shoulders. IMPRESSION: Cardiomegaly without acute process. ACT 112: Negative or not required by law. The above report was generated using voice recognition software. It may contain grammatical, syntax or spelling errors. Electronically signed by: Sebsatián Leonard M.D. 09/02/2024 1:[address] 09/02/24 12:23 EXAM: CT Head Without Intravenous Contrast INDICATION: Right-sided weakness TECHNIQUE: Axial computed tomography images of the head/brain without intravenous contrast. Sagittal and/or coronal reformats are provided. Sagittal and coronal reformatted images were created and reviewed. This CT exam was performed using one or more of the following dose reduction techniques: automated exposure control, adjustment of the mA and/or kV according to patient size, and/or use of iterative reconstruction technique. COMPARISON: 07/11/2023 FINDINGS: Limitations: None. Brain and extra-axial spaces: There is age appropriate cortical atrophy and chronic ischemic periventricular white matter hypodensity. No acute infarct, hemorrhage or mass noted. Bones/joints: No acute changes. Soft tissues: No significant abnormality noted. Vasculature: Dense atherosclerotic calcification present. Sinuses: No layering fluid in the visualized portions of the paranasal sinuses. Mastoid air cells: No mastoid effusion. Orbits: No significant abnormality noted. IMPRESSION: Cerebral atrophy. No acute changes. ACT 112: Negative or not required by law. Electronically signed by Alix Sarabia 09-02-2024 2:[address] 09/02/24 14:43 EXAM: CT Lumbar Spine Without Intravenous Contrast INDICATION: Bilateral lower extremity weakness. Urinary incontinence. TECHNIQUE: Axial computed tomography images of the lumbar spine without intravenous contrast. Sagittal and coronal reformatted images were created and reviewed. This CT exam was performed using one or more of the following dose reduction techniques: automated exposure control, adjustment of the mA and/or kV according to patient size, and/or use of iterative reconstruction technique. COMPARISON: No relevant prior studies available. FINDINGS: Limitations: None. Vertebrae: The bones are generally demineralized. There is moderate facet hypertrophic change at all levels slightly greater on the left. There is moderate to severe spondylosis and mild to moderate uncal spurring L2 to the proximal sacrum. No fracture or subluxation identified. Sacrum/coccyx: No significant abnormality noted. No acute change noted. Discs/spinal canal/neural foramina: There is diffuse moderate to space narrowing and moderate associated disc calcification at L3-L4 and L4-L5. There is mild ventral canal stenosis T12-L1. There is moderate to severe canal and foraminal stenosis L1-L2 with contributing ligamentous and facet hypertrophy. There is a asymmetric disc herniation in the right lateral recess at the level of the mid L2-L3 slightly indenting the right anterolateral thecal sac and causing severe stenosis of the right foraminal origin. There is generalized osteophyte disc complex along with facet and ligamentous hypertrophy causing severe canal and foraminal stenosis at the level of the disc. Moderate canal and foraminal stenosis L3-L4. Severe changes mostly attributing to posterior osteophyte disc complex L4-L5. There is mild ventral stenosis L5-S1. There is moderate to severe foraminal stenosis at L4-L5. Soft tissues: No significant abnormality noted. Vasculature: Atherosclerotic calcification of the aorta and branches. No aneurysm. Kidneys and ureters: Calcifications noted in the central aspect of the left kidney are at least partially renovascular. Nonobstructing stone not excluded. No hydronephrosis. IMPRESSION: 1. Multilevel moderate to severe degenerative changes including foraminal and canal stenosis. No acute osseous abnormality. 2. Calcifications of the left kidney are at least partly renovascular. Nonobstructing stone not excluded. ACT 112: Negative or not required by law. Electronically signed by Alix Sarabia 09-02-2024 3:48 PM Discharge Plan Visit Data Chief Complaint: Leg Weakness, Bilateral Stated Complaint: Leg Weakness, Bilateral ED Provider: Edyta Marinelli Discharge Problem: Right leg weakness, Acute urinary retention Forms Stand Alone Forms: My [facility] Prescriptions Prescriptions: No Action niacin 500 mg tablet 500 mg PO QAM cholecalciferol (vitamin D3) 50 mcg (2,000 unit) capsule 5,000 unit PO QAM Patient Comments: states the bottle says 125 mcg (5,000) rosuvastatin 10 mg tablet 10 mg PO HS Qty: 90 1RF amiodarone 200 mg tablet 200 mg PO DAILY Qty: 90 3RF levothyroxine [Synthroid] 100 mcg tablet 100 mcg PO DAILY Qty: 90 1RF apixaban 2.5 mg tablet 2.5 mg PO BID Qty: 180 3RF Hold Instructions: Resume on 04/23/23. Restart on 04/23/23 as long as there is no further bright red blood in your urine. metoprolol tartrate 25 mg tablet 12.5 mg PO BID Qty: 30 5RF glyburide 1.25 mg tablet 1.25 mg PO BID memantine 10 mg tablet 10 mg PO HS Qty: 90 3RF amlodipine 10 mg tablet 10 mg PO DAILY Qty: 90 3RF ferrous sulfate 27 mg iron Tablet 27 mg PO QAM Patient Comments: not too much lately/trouble with constipation nitroglycerin 0.4 mg tablet, sublingual 0.4 mg sublingual Q5M PRN (Reason: chest pain) Qty: 25 0RF Referrals Referrals: Munir Andino III, CRNP [Primary Care Provider] -
[2024-09-02 12:41] LABS: Basophils # (auto) 0.05 K/uL (0.00-0.20); Basophils % (auto) 0.5 %; Eosinophils # (auto) 0.27 K/uL (0.00-0.50); Eosinophils % (auto) 2.9 %; Hematocrit (blood only) 40.3 % (42.0-52.0); Hemoglobin 12.9 g/dl (14.0-18.0); Immature Granulocytes # (auto) 0.02 K/uL (0.01-0.20); Immature Granulocytes % (auto) 0.2 %; Lymphocytes # (auto) 1.24 K/uL (1.20-3.40); Lymphocytes % (auto) 13.1 %; Mean Corpuscular Hemoglobin 27.4 pg (25.0-34.0); Mean Corpuscular Volume 85.7 fL (80.0-100.0); Mean Platelet Volume 10.9 fL (9.4-12.4); Monocytes # (auto) 1.02 K/uL (0.11-0.59); Monocytes % (auto) 10.8 %; Neutrophils # (auto) 6.87 K/uL (1.40-6.50); Neutrophils % (auto) 72.5 %; Platelet Count 219 K/uL (130-400); White Blood Count 9.47 K/ul (4.8-10.8)
[2024-09-02 12:59] LABS: Albumin Globulin Ratio 1.1 (0.9-2); Albumin Level 3.8 gm/dl (3.4-5.0); BUN Creatinine Ratio 15.6 (10-20); Bilirubin,Total 0.9 mg/dl (0.2-1.0); Calcium 9.7 mg/dl (8.6-10.3); Creatinine Clr Calc Pharmacy 28.2 ml/min; Globulin 3.5 gm/dl (2.5-4.0); Magnesium 1.9 mg/dl (1.7-2.4); Potassium 4.5 mmol/L (3.5-5.1); Total Protein 7.3 gm/dl (6.0-8.3)
[2024-09-02 13:11] LABS: INR 1.2 (0.9-1.1); Prothrombin Time 12.4 Seconds (9.0-12.0)
[2024-09-02 13:15] LABS: Thyroid Stimulating Hormone 0.834 uIu/ml (0.300-4.500)
--- NOTE | 2024-09-02 13:32 | XRay Report ---
XR chest 1V portable HISTORY: 88 years-old Male weakness COMPARISON: 05/26/2024 TECHNIQUE: AP view of the chest FINDINGS: Cardiac silhouette is enlarged. Median sternotomy with mediastinal surgical clips and mild chronic in terstitial coarsening. No pneumothorax, pleural effusion or overt pulmonary edema. Degenerative ledbetter es of the shoulders. IMPRESSION: Cardiomegaly without acute process. ACT 112: Negative or not required by law. The above report was generated using voice recognition software. It may contain grammatical, syntax o r spelling errors. Electronically signed by: Sebastián Leonard M.D. 09/02/2024 1:31 PM
[2024-09-02 13:35] LABS: Adenovirus PCR Not Detected (NotDetected); Bordetella parapertussis PCR Not Detected (NotDetected); Bordetella pertussis PCR Not Detected (NotDetected); Chlamydia pneumoniae PCR Not Detected (NotDetected); Coronavirus 229E PCR Not Detected (NotDetected); Coronavirus CoV-2 (COVID19)PCR Not Detected (NotDetected); Coronavirus HKU1 PCR Not Detected (NotDetected); Coronavirus NL63 PCR Not Detected (NotDetected); Coronavirus OC43PCR Not Detected (NotDetected); Human Metapneumovirus PCR Not Detected (NotDetected); Influenza A PCR Not Detected (NotDetected); Influenza B PCR Not Detected (NotDetected); Mycoplasma pneumoniae PCR Not Detected (NotDetected); Parainfluenza Virus 1 PCR Not Detected (NotDetected); Parainfluenza Virus 2 PCR Not Detected (NotDetected); Parainfluenza Virus 3 PCR Not Detected (NotDetected); Parainfluenza Virus 4 PCR Not Detected (NotDetected); Respiratory Syncytial VirusPCR Not Detected (NotDetected); Rhinovirus/Enterovirus PCR Not Detected (NotDetected)
--- NOTE | 2024-09-02 14:27 | CT Scan Report ---
EXAM: CT Head Without Intravenous Contrast INDICATION: Right-sided weakness TECHNIQUE: Axial computed tomography images of the head/brain without intravenous contrast. Sagittal and/or coronal reformats are provided. Sagittal and coronal reformatted images were created and reviewed. This CT exam was performed using one or more of the following dose reduction techniques: automated exposure control, adjustment of the mA and/or kV according to patient size, and/or use of iterative reconstruction technique. COMPARISON: 07/11/2023 FINDINGS: Limitations: None. Brain and extra-axial spaces: There is age appropriate cortical atrophy and chronic ischemic periventricular white matter hypodensity. No acute infarct, hemorrhage or mass noted. Bones/joints: No acute changes. Soft tissues: No significant abnormality noted. Vasculature: Dense atherosclerotic calcification present. Sinuses: No layering fluid in the visualized portions of the paranasal sinuses. Mastoid air cells: No mastoid effusion. Orbits: No significant abnormality noted. IMPRESSION: Cerebral atrophy. No acute changes. ACT 112: Negative or not required by law. Electronically signed by Alix Sarabia 09-02-2024 2:27 PM
--- NOTE | 2024-09-02 14:48 | CT Scan Report ---
EXAM: CT Cervical Spine Without Intravenous Contrast INDICATION: Right-sided weakness TECHNIQUE: Axial computed tomography images of the cervical spine without intravenous contrast. Sagittal and coronal reformatted images were created and reviewed. This CT exam was performed using one or more of the following dose reduction techniques: automated exposure control, adjustment of the mA and/or kV according to patient size, and/or use of iterative reconstruction technique. COMPARISON: 07/11/2023 FINDINGS: Limitations: None. Vertebrae: The bones are demineralized with stable diffuse moderate to severe facet arthrosis, spondylosis and spo uncal spurring. No acute fracture. No traumatic subluxation. There is stable degenerative grade 1 anterolisthesis C3 on C4. Discs/spinal canal/neural foramina: Stable extensive degenerative moderate to severe changes of the intervertebral discs. There is multilevel mild to moderate canal and foraminal stenosis most notable at C3-C4 asymmetric on the left. There is extensive ligamentous ossification at C1-C2 with canal stenosis stable. Soft tissues: No significant abnormality noted. Lung apices: No significant abnormality noted. IMPRESSION: Stable severe degenerative changes including multilevel foraminal and canal stenosis. ACT 112: Negative or not required by law. Electronically signed by Alix Sarabia 09-02-2024 2:47 PM
--- NOTE | 2024-09-02 15:48 | CT Scan Report ---
EXAM: CT Lumbar Spine Without Intravenous Contrast INDICATION: Bilateral lower extremity weakness. Urinary incontinence. TECHNIQUE: Axial computed tomography images of the lumbar spine without intravenous contrast. Sagittal and coronal reformatted images were created and reviewed. This CT exam was performed using one or more of the following dose reduction techniques: automated exposure control, adjustment of the mA and/or kV according to patient size, and/or use of iterative reconstruction technique. COMPARISON: No relevant prior studies available. FINDINGS: Limitations: None. Vertebrae: The bones are generally demineralized. There is moderate facet hypertrophic change at all levels slightly greater on the left. There is moderate to severe spondylosis and mild to moderate uncal spurring L2 to the proximal sacrum. No fracture or subluxation identified. Sacrum/coccyx: No significant abnormality noted. No acute change noted. Discs/spinal canal/neural foramina: There is diffuse moderate to space narrowing and moderate associated disc calcification at L3-L4 and L4-L5. There is mild ventral canal stenosis T12-L1. There is moderate to severe canal and foraminal stenosis L1-L2 with contributing ligamentous and facet hypertrophy. There is a asymmetric disc herniation in the right lateral recess at the level of the mid L2-L3 slightly indenting the right anterolateral thecal sac and causing severe stenosis of the right foraminal origin. There is generalized osteophyte disc complex along with facet and ligamentous hypertrophy causing severe canal and foraminal stenosis at the level of the disc. Moderate canal and foraminal stenosis L3-L4. Severe changes mostly attributing to posterior osteophyte disc complex L4-L5. There is mild ventral stenosis L5-S1. There is moderate to severe foraminal stenosis at L4-L5. Soft tissues: No significant abnormality noted. Vasculature: Atherosclerotic calcification of the aorta and branches. No aneurysm. Kidneys and ureters: Calcifications noted in the central aspect of the left kidney are at least partially renovascular. Nonobstructing stone not excluded. No hydronephrosis. IMPRESSION: 1. Multilevel moderate to severe degenerative changes including foraminal and canal stenosis. No acute osseous abnormality. 2. Calcifications of the left kidney are at least partly renovascular. Nonobstructing stone not excluded. ACT 112: Negative or not required by law. Electronically signed by Alix Sarabia 09-02-2024 3:48 PM
[2024-09-02 16:58] LABS: Appearance Urine Clear (Clear); Bacteria Urine Automated None Seen (None Seen); Bilirubin Urine Negative (Negative); Blood Urine Negative (Negative); Cast Urine Automated 0-2 /lpf (0-2); Color Urine Yellow; Epithelial Cell Urine Auto 0-2 /hpf (0-2); Glucose Urine UA Negative (Negative); Ketones Urine Negative (Negative); Leukocyte Esterase Urine Negative (Negative); Nitrite Urine Negative (Negative); Protein Urine Trace (Negative); RBC Urine Automated 0-2 /hpf (0-2); Specific Gravity Urine 1.019 (1.000-1.030); Urobilinogen Urine Negative (Negative); WBC Urine Automated 0-5 /hpf (0-5); pH Urine 5.5 (4.5-7.5)
--- NOTE | 2024-09-02 17:30 | History & Physical Report ---
Date of Service September 02, 2024 Assessment & Plan (1) Weakness: Plan: This is an 88-year-old gentleman with past medical history of hypothyroidism, type 2 diabetes, hypertension, dyslipidemia, CAD, PAD who presented to the emergency room on 09/02/2024 with a chief complaint of lower extremity weakness. Patient also with upper extremity weakness as well. CBC: hgb 12.9 which is within baseline, no leukocytosis BMP: Creatinine 1.73, appears within baseline. electrolytes stable. Troponin 44 --> 43 likely demand due to absence of CP and no signs of ischemia on EKG TSH WNL Urinalysis negative. Respiratory biofire negative Lumbar spine CT: multilevel mod-severe degenerative changes including foraminal and canal stenosis. no acute osseous abnormality Head CT: cerebral atrophy. no acute changes CXR: cardiomegaly w/o acute process Cervical Spine CT: stable severe degenerative changes including multilevel foraminal and canal stenosis. Obtain Lumbar and Cervical spine MRI. Consider neurology consultation pending results of AM labs and MRI PT/OT consults, appreciate recommendations Will check vitamin B12, Vitamin D and folate in addition to CBC and BMP in AM (2) Type 2 diabetes mellitus: Plan: Outpatient regimen: Glyburide - hold while inpatient Last A1c 08/09/2024: 7% Novolog SSI while inpatient Goal: 110-170mg/dL CF: 20 Follows with wound care outpatient for diabetic foot ulcer. Last seen 08/22/2024 difficulty healing due to PAD.- Last seen by Dr. Barbour in 2022 dresses wound w/ [facility] outpatient consult wound nurse. (3) Enlarged prostate without lower urinary tract symptoms (luts): Plan: Urinary incontinence episode in ED Bladder scan retain 300cc in ED Bladder scan q shift Added Flomax HS Plan Chronic conditions A fib/flutter: amiodarone, Eliquis, metoprolol CAD: statin Hypothyroidism: levothyroxine HTN: amlodipine memory impairment: memantine DVT prophylaxis: home Eliquis Disposition: med/surg Diet: heart healthy, carb consistent Code status: NPO Updated at bedside w/ admission plans 09/02 History of Present Illness Chief Complaint: weakness Primary Care Provider: Munir Andino III, ABDIRIZAK This is an 88-year-old gentleman with past medical history of hypothyroidism, type 2 diabetes, hypertension, dyslipidemia, CAD, PAD who presented to the emergency room on 09/02/2024 with a chief complaint of lower extremity weakness. The patient was seen and examined with his at bedside. Patient reports that over the last 7 to 10 days he has noticed progressive weakness in his lower extremities. States that he typically ambulates with a walker and now cannot walk. States that his right leg is worse than his left leg. He denies any chest pain or shortness of breath. He does admit to low back pain at time of encounter. Patient does routinely follow with cardiology outpatient. He has a history of PAD with claudication has had a right SFA angioplasty in the past with Dr. Barbour. He denied any abdominal pain, nausea, vomiting. Denied any fevers or chills. Patient admits that he does experience lower extremity edema occasionally. He did have an episode of urinary incontinence and does feel an urge to urinate however does have a history of BPH. Denies any abnormal changes in his bowel habits. Patient also undergoing outpatient workup regarding his cervical spine. States he is to get an MRI on this outpatient. Patient states that he has also felt tingling sensation in his b/l upper extremities and has had difficulty holding on to objects such as a coffee mug. Allergies Allergy/AdvReac Type Severity Reaction Status Date / Time Penicillins Allergy Unknown Generalized Verified 08/22/24 13:37 and facial swelling shellfish derived Allergy Unknown Generalized Verified 08/22/24 13:37 and facial swelling Sulfa (Sulfonamide Allergy Unknown Generalized Verified 08/22/24 13:37 Antibiotics) and facial swelling sitagliptin [From Januvia] AdvReac Severe Diarrhea Verified 08/22/24 13:37 Home Medications Medication Instructions Recorded Confirmed Type niacin 500 mg tablet 500 mg PO QAM 12/24/21 08/22/24 History nitroglycerin 0.4 mg sublingual 0.4 mg sublingual Q5M PRN chest 11/25/22 08/22/24 Rx tablet pain #25 tabs cholecalciferol (vitamin D3) 50 5,000 unit PO QAM 11/26/22 08/22/24 History mcg (2,000 unit) capsule ferrous sulfate 27 mg iron tablet 27 mg PO QAM 01/20/23 08/22/24 History metoprolol tartrate 25 mg tablet 12.5 mg (1/2 x 25 mg) PO BID #30 07/04/23 08/22/24 Rx tabs glyburide 1.25 mg tablet 1.25 mg PO BID 11/08/23 08/22/24 History rosuvastatin 10 mg tablet 10 mg PO HS #90 tabs 03/15/24 08/22/24 Rx amiodarone 200 mg tablet 200 mg PO DAILY #90 tabs 05/21/24 08/22/24 Rx amlodipine 10 mg tablet 10 mg PO DAILY #90 tabs 06/12/24 08/22/24 Rx memantine 10 mg tablet 10 mg PO HS #90 tabs 06/12/24 08/22/24 Rx levothyroxine 100 mcg tablet 100 mcg PO DAILY #90 tabs 08/09/24 08/22/24 Rx (Synthroid) apixaban 2.5 mg tablet 2.5 mg PO BID #180 tabs 08/20/24 08/22/24 Rx Past Med/Surg History Problem List (Updated 09/03/24 @ 16:16 by Jigar Jeong MD) S/P cervical spinal fusion Cervical cord myelomalacia Cervical spondylosis Lumbar stenosis with neurogenic claudication Cervical stenosis of spinal canal Weakness Acute urinary retention (Acute) Right leg weakness (Acute) Diabetic ulcer of right foot (Acute) Diabetic ulcer of left foot associated with diabetes mellitus due to underlying condition, limited to breakdown of skin (Acute) Anemia (Acute) Hypothyroidism Aortic stenosis Echo 04/2023: Moderate aortic stenosis (TK 1.1 cm, MG 19.9 mmHg) Diabetes type 2, controlled HTN (hypertension) Dyslipidemia CAD (coronary artery disease) s/p CABG x3 (1994) Atrial flutter (Acute) Personal history of diabetic foot ulcer Diabetic peripheral neuropathy associated with type 2 diabetes mellitus (Chronic) PAD (peripheral artery disease) (Chronic) s/p right SFA angioplasty Enlarged prostate without lower urinary tract symptoms (luts) (Chronic) Retention of urine, unspecified (Chronic) Tricuspid regurgitation Nocturia Memory change Medical History (Updated 09/03/24 @ 16:16 by Jigar Jeong MD) Acute kidney injury superimposed on stage 3a chronic kidney disease Nephrolithiasis Hx of non-ST elevation myocardial infarction (NSTEMI) 11/2022 Heart murmur Mild pulmonary hypertension Echo 04/2023: Mild pulmonary hypertension. Estimated RVSP 41 mmHg. Dementia Noted in records, unsure if official diagnosis Anemia Chronic, baseline 11-13 range per chart review CKD (chronic kidney disease), stage III Surgical History (Updated 09/03/24 @ 16:16 by Jigar Jeong MD) History of coronary artery bypass graft x 3 S/P closed reduction of dislocated total hip prosthesis History of anesthesia reaction Confusion with hip surgery History of total left hip arthroplasty History of cardioversion x3 History of incision and drainage Right heel I&D, antibiotic beads: 04/06/19: SAB x 1 at L3/L4 at [facility] Difficult airway for intubation Right ELLEN (03/24/17): Elective Glidescope #4 due to limited ROM, ETT #7.5, HiLo Straight, Grade 2 View with Large Epiglottis (no specific indication why SAB not used) History of hip surgery x2 for dislocation right (s/p right ELLEN) History of total right hip arthroplasty History of colonoscopy History of repair of left rotator cuff History of fracture Collar bone > surgical repair History of tonsillectomy History of hernia surgery Right inguinal History of appendectomy History of vascular surgery right heel vascular procedure (Dr. Barbour) History of neck surgery C4-5 "cadaver bone" "Limited ROM" History of cardiac cath 1994 > subsequent CABG x3 Hx of CABG (~1994) CABG x 3 (1994) Family History Mother Alzheimer disease Father Arthritis Denies family history of Ovarian cancer Prostate cancer Myocardial infarction Breast cancer Colorectal cancer Social History (Updated 08/14/24 @ 14:13 by RAFIQ Aden) Smoking Status: Never smoker Tobacco Type: Cigarettes Age Started Using Tobacco: 17; Age Quit Using Tobacco: 24; packs per day: 1; Second Hand Exposure: No; Do You Dip or Chew Tobacco: No; Hx Alcohol Use: No Hx Substance Use: No Preferred Language: Urdu Communication Ability: Effective Communication Ability Comment: pt currently doing PT / (HIPPA) does phone interview. Pt helps. 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 How many Children do You have: 0 Feels Safe at Home: Yes Safety Concerns: Feels Safe At This Time Childhood Exposure to Second-Hand Smoke: No Diet: low salt and regular caffeine: Yes Dental Care, Regularly: Yes Physical Activity Frequency: Does not Exercise Seatbelt Use: always Sunscreen Use: No Do you think of yourself as: straight/heterosexual Gender Identity: Male Assistive Devices: Glasses and Stair Lift Physical Exam 2 Constitutional: WD/WN, vitals as above Eyes: PERRL, conjunctivae normal, anicteric sclerae Respiratory: normal respiratory effort, lungs clear to auscultation Cardiovascular: irregularly irregular. no LE edema. Erythema and warmth to palpation of right anterior menezes. Psychiatric: A+Ox3, euthymic affect Results & Data Results & Data Vital Signs (Past 12 Hours) Vital Signs Temp Pulse Pulse Resp BP BP Pulse Ox 09/02/24 17:04 65 16 158/77 H 96 09/02/24 16:20 64 09/02/24 15:32 59 L 180/87 H 96 09/02/24 14:09 60 19 95 09/02/24 13:46 61 20 151/84 H 95 09/02/24 13:30 145/68 H 09/02/24 12:57 60 26 H 09/02/24 12:37 180/103 H 09/02/24 12:36 63 22 09/02/24 12:30 74 22 09/02/24 12:15 63 21 09/02/24 12:11 63 09/02/24 12:05 36.5 C 63 16 167/89 H 95 O2 Del Method 09/02/24 17:04 Room Air 09/02/24 16:20 09/02/24 15:32 Room Air 09/02/24 14:09 Room Air 09/02/24 13:46 Room Air 09/02/24 13:30 09/02/24 12:57 09/02/24 12:37 09/02/24 12:36 09/02/24 12:30 09/02/24 12:15 09/02/24 12:11 09/02/24 12:05 Room Air Laboratory Results 09/02/24 12:10 09/02/24 12:10 Supervising Physician Co-Signing Physician Notes During face to face encounter, I obtained a history and physical examination, discussed plan of care with patient \\ I discussed plan of care with SOLANGE Murray. I reviewed above note and agree with it except for the following: Patient with weakness. will obtain MRI of c spine and L spine. PG Care Time/CCT Total # of Minutes Spent Total Time Spent with Patient: Total time spent is greater than 50% in coordination of care (as documented) at patient's floor/unit and/or counseling patient: Coding Level of Care Code 92881 INT INP/OBS CARE 3/75MIN Diagnoses Weakness R53.1 Type 2 diabetes mellitus with other circulatory complication, without long-term current use of insulin E11.59 Diabetes mellitus complication detail: with other circulatory complications Diabetes mellitus complication status: with circulatory complication Diabetes mellitus retirement insulin use: without ferry terminal supervisor use Enlarged prostate without lower urinary tract symptoms (luts) N40.0 (2) Type 2 diabetes mellitus Diabetes mellitus complication detail: with other circulatory complications D iabetes mellitus complication status: with circulatory complication Diabetes mellitus retirement insulin use: without retirement use Qualified Code(s): E11.59 - Type 2 diabetes mellitus with other circulatory complications
--- NOTE | 2024-09-02 18:48 | Ultrasound Report ---
EXAM: US Duplex Right Lower Extremity Veins INDICATION: Pain and erythema. TECHNIQUE: Real-time duplex ultrasound scan of the right lower extremity veins integrating B-mode two-dimensional vascular structure, Doppler spectral analysis, color flow Doppler imaging and compression. COMPARISON: No relevant prior studies available. FINDINGS: Deep veins: No DVT in the visualized common femoral, femoral or popliteal veins. The veins demonstrate normal color flow, are normally compressible, with normal phasic flow and/or augmentation response. Superficial veins: No abnormality noted. No thrombus in the visualized great saphenous vein. Soft tissues: No abnormality noted. IMPRESSION: No deep venous thrombosis of the right lower extremity. ACT 112: Negative or not required by law. Electronically signed by Alix Sarabia 09-02-2024 6:48 PM
[2024-09-02] MEDS ORDERED: DEXTROSE 50% 50 ML SYRINGE IV PRN (20:00)
[2024-09-02] MEDS ORDERED: CARBOHYDRATES FOR HYPOGLYCEMIA PO PRN (20:00)
[2024-09-02] MEDS ORDERED: GLUCOSE 10 TAB/TUBE PO PRN (20:00)
[2024-09-02] MEDS ORDERED: GLUCAGON FOR INJ 1 MG VIAL SQ PRN (20:00)
[2024-09-02] MEDS ORDERED: GLUCOSE 40% GEL 15 GM TUBE PO PRN (20:00)
[2024-09-02] MEDS: INSULIN ASPART PER UNIT CHARGE SC SCH (20:37)
[2024-09-02] MEDS: MEMANTINE HCL 10 MG TAB PO SCH (21:17)
[2024-09-02] MEDS: TAMSULOSIN HCL 0.4 MG CAP PO SCH (21:17)
[2024-09-02] MEDS: APIXABAN 2.5 MG TAB PO SCH (21:17)
[2024-09-02] MEDS: ROSUVASTATIN CALCIUM 10 MG TAB PO SCH (21:17)
[2024-09-02] MEDS: METOPROLOL TARTRATE 25 MG TAB PO SCH (21:17)
[2024-09-02] MEDS: GADOBUTROL 65ML VIAL IV ONE (23:54)
--- NOTE | 2024-09-03 00:15 | Communication Note ---
Date of Service: September 03, 2024 Patient is a close family friend of [employer] Digital Production Artist Thong Rodriguez. Thong has known patient for years - states that she went in to see him in his room this evening and patient did not recognize her - seemed confused. Also states that he has been falling more frequently at home due to these episodes of numbness in his hands and lower extremities. Would consider Neuro Consultation for episodes of bilateral LE weakness Rest per HPI
--- NOTE | 2024-09-03 01:34 | Magnetic Resonance Report ---
EXAM: MR cervical spine wo/w con CLINICAL HISTORY: bilateral leg weakness. worse today. right leg worse. fall [address] cervical and lumbar done 09/02. no previous MRI here injected 8cc gadavist through existing iv left arm uneventful at 2350. room 308-1. 279 images TECHNIQUE: Multisequential and multiplanar images of the cervical spine were submitted for review without and with contrast. COMPARISON: 02 September 2024. FINDINGS: Straightening of the cervical lordosis. Grade I anterolisthesis of C3 over C4 vertebra is noted without bilateral pars interarticularis fractures. The visualized paraspinal soft tissues are grossly unremarkable. Marginal and uncovertebral osteophytes, facetal arthropathy with hypertrophic changes, reduction in disc heights, endplate irregularity and sclerosis, vacuum phenomenon, disc calcifications are noted at multiple levels causing variable degree spinal canal and neural foraminal stenosis as descriobed below. Ligamentum flavum calcification is noted C4-C5 level. Supraspinous ligament calcification is noted at mid-cervical level. Patchy anterior and posterior longitudinal ligament calcification is also noted at places. Moderate thickening with calcification of the tectorial membrane, transverse atlanto ligament is noted causing severe stenosis of the cervical medullary junction. Similar significant thickening with calcification is also noted involving anterior atlantoaxial ligament. C2-C3: Diffuse disc bulge is noted causing mild spinal canal stenosis. C3-C4: Diffuse disc bulge is noted causing moderate spinal canal and right neural foraminal stenosis. Severe left neural foraminal stenosis is noted. C4-C5: Diffuse disc bulge is noted causing severe right neural foraminal and moderate spinal canal stenosis. Moderate left neural foraminal stenosis is also seen. Myelomalacia changes are noted involving the spinal cord at this level. C5-C6: Diffuse disc bulge is noted causing severe right and moderate left neural foraminal stenosis. Moderate spinal canal stenosis is also seen. C6-C7: Diffuse disc bulge is noted causing mild spinal canal and bilateral neural foraminal stenosis. C7-T1: Diffuse disc bulge is noted causing severe left neural foramina stenosis. Moderate spinal canal and right neural foraminal stenosis is also seen. IMPRESSION: 1. Grade I anterolisthesis of C3 over C4 vertebra without spondylolysis. 2. Advanced degenerative changes as described above. 3. Disc bulges at multiple levels with neural compression as described above. 4. Moderate thickening with calcification of the tectorial membrane, transverse atlantal ligament is noted causing severe stenosis of the cervical medullary junction. 5. Myelomalacia changes are noted involving the spinal cord at C4-C5 level. Electronically signed by Jakob aBnegas 09-03-2024 01:33 AM
--- NOTE | 2024-09-03 01:41 | Magnetic Resonance Report ---
EXAM: e+2 MR lumbar spine wo/w con CLINICAL HISTORY: bilateral leg weakness. worse today. right leg worse. fall [address] cervical and lumbar done 09/02. no previous MRI here injected 8cc gadavist through existing iv left arm uneventful at 2350. room 308-1. 163 Images TECHNIQUE: Multisequential and multiplanar images of the lumbar spine were submitted for review without and with contrast. COMPARISON: 02 September 2024. FINDINGS: Terminal lumbar segment vertebra is labeled as L5. The conus medullaris terminates at approximately L1 and demonstrates normal size and signal. Normal curvature of the spine is maintained. Alignment of the lumbar spine is normal. There is no abnormal bone marrow signal. Marginal osteophytes are noted at multiple levels. All discs appear degenerated. Reduction in the disc height is noted at all levels. L1-L2: Diffuse disc bulge is noted causing mild spinal canal, bilateral lateral recess and neural foraminal stenosis. L2-L3: Disc bulge, ligamentum flavum thickening is noted causing severe spinal canal and bilateral lateral recess stenosis. Moderate bilateral neural foraminal stenosis is also noted. Superior migration of the disc material is noted at this level on right side of the spinal canal causing further severe compression of the right traversing and exiting nerve roots. L3-L4: Diffuse disc bulge is noted causing mild spinal canal and severe bilateral lateral recess stenosis. Moderate bilateral neural foraminal stenosis is also noted. L4-L5: Diffuse disc bulge is noted causing mild spinal canal and severe bilateral lateral recess stenosis. Moderate bilateral neural foraminal stenosis is also seen. L5-S1: Diffuse disc bulge, ligamentum flavum thickening is noted causing mild spinal canal and severe bilateral lateral recess stenosis. Severe right and moderate left neural foraminal stenosis also noted. The visualized paraspinal soft tissues are grossly unremarkable. Facetal arthropathy changes are noted at multiple levels. IMPRESSION: 1. Degenerative changes. 2. Posterior disc bulges at multiple levels with neural compression as described above. 3. Superior migration of the disc material is noted at L2-L3 level on the right side causing severe compression of right traversing and exiting nerves. Electronically signed by Jakob Banegas 09-03-2024 01:40 AM
[2024-09-03] MEDS: LEVOTHYROXINE SODIUM 100 MCG TABLET PO SCH (05:25)
[2024-09-03 06:10] LABS: Hematocrit (blood only) 38.3 % (42.0-52.0); Hemoglobin 12.2 g/dl (14.0-18.0); Mean Corpuscular Hemoglobin 27.2 pg (25.0-34.0); Mean Corpuscular Hgb Conc 31.9 g/dL (32.0-36.0); Mean Corpuscular Volume 85.5 fL (80.0-100.0); Mean Platelet Volume 10.9 fL (9.4-12.4); Platelet Count 197 K/uL (130-400); RDW Coefficient of Variation 16.1 % (11.5-14.5); RDW Standard Deviation 49.2 fL (36.4-46.3); Red Blood Count 4.48 M/uL (4.70-6.10); White Blood Count 7.67 K/ul (4.8-10.8)
[2024-09-03 06:27] LABS: BUN Creatinine Ratio 16.1 (10-20); Calcium 9.4 mg/dl (8.6-10.3); Creatinine Clr Calc Pharmacy 27.4 ml/min; Potassium 4.3 mmol/L (3.5-5.1)
[2024-09-03 06:51] LABS: Folate (Folic Acid),Ser orPlas 17.79 ng/ml (>5.38)
[2024-09-03] MEDS: AMIODARONE 200 MG TAB PO SCH (07:48)
[2024-09-03] MEDS: amLODIPine BESYLATE 5 MG TAB PO SCH (07:48)
[2024-09-03] MEDS: NIACIN 500 MG TAB PO SCH (07:48)
[2024-09-03] MEDS: FERROUS SULFATE 325 MG TAB PO SCH (07:49)
[2024-09-03] MEDS: CHOLECALCIFEROL 125 MCG (5,000 UNITS) TAB PO SCH (07:49)
--- NOTE | 2024-09-03 09:28 | Neurology Consultation ---
Date of Consultation September 03, 2024 Assessment & Plan (1) Weakness: History of Present Illness Attending Physician: Star Colbert History of Present Illness pt this morning feeling ok. pt has been getting weak in his arms and legs last 2 weeks or so and was getting outpt work up for this and he decided to come in to ED for his leg weakness. he states he fell about 10 days ago but he didn't injure but just "slipped" down his walker. mri L spine and C spine done on this admission, noted for L spine L2-3 large disc bulge with central canal and b/l foramenal stenosis that is severe. also extensive C spine DDD/DJD with multi- level degeneration. chart reviewed. admission HPI: This is an 88-year-old gentleman with past medical history of hypothyroidism, type 2 diabetes, hypertension, dyslipidemia, CAD, PAD who presented to the emergency room on 09/02/2024 with a chief complaint of lower extremity weakness. The patient was seen and examined with his at bedside. Patient reports that over the last 7 to 10 days he has noticed progressive weakness in his lower extremities. States that he typically ambulates with a walker and now cannot walk. States that his right leg is worse than his left leg. He denies any chest pain or shortness of breath. He does admit to low back pain at time of encounter. Patient does routinely follow with cardiology outpatient. He has a history of PAD with claudication has had a right SFA angioplasty in the past with Dr. Barbour. He denied any abdominal pain, nausea, vomiting. Denied any fevers or chills. Patient admits that he does experience lower extremity edema occasionally. He did have an episode of urinary incontinence and does feel an urge to urinate however does have a history of BPH. Denies any abnormal changes in his bowel habits. Patient also undergoing outpatient workup regarding his cervical spine. States he is to get an MRI on this outpatient. Patient states that he has also felt tingling sensation in his b/l upper extremities and has had difficulty holding on to objects such as a coffee mug. Allergies Allergy/AdvReac Type Severity Reaction Status Date / Time Penicillins Allergy Unknown Generalized Verified 08/22/24 13:37 and facial swelling shellfish derived Allergy Unknown Generalized Verified 08/22/24 13:37 and facial swelling Sulfa (Sulfonamide Allergy Unknown Generalized Verified 08/22/24 13:37 Antibiotics) and facial swelling sitagliptin [From ] AdvReac Severe Diarrhea Verified 08/22/24 13:37 Home Medications Medication Instructions Recorded Confirmed Type niacin 500 mg tablet 500 mg PO QAM 12/24/21 08/22/24 History nitroglycerin 0.4 mg sublingual 0.4 mg sublingual Q5M PRN chest 11/25/22 08/22/24 Rx tablet pain #25 tabs cholecalciferol (vitamin D3) 50 5,000 unit PO QAM 11/26/22 08/22/24 History mcg (2,000 unit) capsule ferrous sulfate 27 mg iron tablet 27 mg PO QAM 01/20/23 08/22/24 History metoprolol tartrate 25 mg tablet 12.5 mg (1/2 x 25 mg) PO BID #30 07/04/23 08/22/24 Rx tabs glyburide 1.25 mg tablet 1.25 mg PO BID 11/08/23 08/22/24 History rosuvastatin 10 mg tablet 10 mg PO HS #90 tabs 03/15/24 08/22/24 Rx amiodarone 200 mg tablet 200 mg PO DAILY #90 tabs 05/21/24 08/22/24 Rx amlodipine 10 mg tablet 10 mg PO DAILY #90 tabs 06/12/24 08/22/24 Rx memantine 10 mg tablet 10 mg PO HS #90 tabs 06/12/24 08/22/24 Rx levothyroxine 100 mcg tablet 100 mcg PO DAILY #90 tabs 08/09/24 08/22/24 Rx (Synthroid) apixaban 2.5 mg tablet 2.5 mg PO BID #180 tabs 08/20/24 08/22/24 Rx Patient History Medical History (Updated 09/02/24 @ 17:09 by Hilda Murray PA-C) Acute kidney injury superimposed on stage 3a chronic kidney disease Nephrolithiasis Hx of non-ST elevation myocardial infarction (NSTEMI) 11/2022 Heart murmur Mild pulmonary hypertension Echo 04/2023: Mild pulmonary hypertension. Estimated RVSP 41 mmHg. Dementia Noted in records, unsure if official diagnosis Anemia Chronic, baseline 11-13 range per chart review CKD (chronic kidney disease), stage III Surgical History (Updated 08/14/24 @ 17:14 by Munir C. Griel III, LOGISTICS OPERATIONS DIRECTOR) History of coronary artery bypass graft x 3 S/P closed reduction of dislocated total hip prosthesis History of anesthesia reaction Confusion with hip surgery History of total left hip arthroplasty History of cardioversion x3 History of incision and drainage Right heel I&D, antibiotic beads: 04/06/19: SAB x 1 at L3/L4 at [facility] Difficult airway for intubation Right ELLEN (03/24/17): Elective Glidescope #4 due to limited ROM, ETT #7.5, HiLo Straight, Grade 2 View with Large Epiglottis (no specific indication why SAB not used) History of hip surgery x2 for dislocation right (s/p right ELLEN) History of total right hip arthroplasty History of colonoscopy History of repair of left rotator cuff History of fracture Collar bone > surgical repair History of tonsillectomy History of hernia surgery Right inguinal History of appendectomy History of vascular surgery right heel vascular procedure (Dr. Barbour) History of neck surgery C4-5 "cadaver bone" "Limited ROM" History of cardiac cath 1994 > subsequent CABG x3 Hx of CABG (~1994) CABG x 3 (1994) Family History Mother Alzheimer disease Father Arthritis Denies family history of Ovarian cancer Prostate cancer Myocardial infarction Breast cancer Colorectal cancer Social History (Updated 08/14/24 @ 14:13 by RAFIQ Aden) Smoking Status: Never smoker Tobacco Type: Cigarettes Age Started Using Tobacco: 17; Age Quit Using Tobacco: 24; packs per day: 1; Second Hand Exposure: No; Do You Dip or Chew Tobacco: No; Hx Alcohol Use: No Hx Substance Use: No Preferred Language: Albanian Communication Ability: Effective Communication Ability Comment: pt currently doing PT / (HIPPA) does phone interview. Pt helps. 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 How many Children do You have: 0 Feels Safe at Home: Yes Safety Concerns: Feels Safe At This Time Childhood Exposure to Second-Hand Smoke: No Diet: low salt and regular caffeine: Yes Dental Care, Regularly: Yes Physical Activity Frequency: Does not Exercise Seatbelt Use: always Sunscreen Use: No Do you think of yourself as: straight/heterosexual Gender Identity: Male Assistive Devices: Glasses and Stair Lift Exam (Neuro) Physical Exam: Neuro: Mental: Alert, fluent speech, normal comprehension, no apraxia, no neglect CN: PERRL, Full EOM, symmetric face, midline T/U/P, Motor: No abnormal movements, normal tone, b/l UPPer limbs: 4/5 shoulder abduction, 4/5 elbow flexion. LUE: 4-/5 elbow extension. b/l Lower ext: 5-/5 plantar flexion and 4/5 dorsiflexion and 4-/5 knee extension b/l and hip flexion. Coord: intact grossly DTR: 2+ sym b/l at the knee and Ankle, 1+ b/l upper limbs t/o. Gait: deferred. Impression: 88 yo male with b/l lower extremities and upper limbs weakness that is likely due to progression of his severe c spine and L spine DDD/DJD and multi-level nerve root impingements and along with deconditioning. Not likely BONDING AGENT cause. less likely muscular disorder, e.g. myositis. Recommendations: get input from ortho spine for potential tx options. physical therapy and occupational therapy for rehab needs and conditioning. likely need inpt rehab. he will need ongoing outpt work up and clinical follow up as now. may consider EMG/NCS as outpt in 1-2 months if he continues to have weakness (but EMG will not change his overall management). Chart reviewed I have spent more than 50% educating patient about potential diagnosis and neurological evaluation and coordinating care with patient's treatment team. Total time spent (including chart review and coordination of care): 45 min (this includes chart review). Results & Data Vital Signs (Past 12 Hours) Vital Signs Temp Pulse Resp BP Pulse Ox O2 Del Method 09/03/24 07:17 36.6 C 67 16 129/68 94 Room Air PG Care Time/CCT Total # of Minutes Spent Total Time Spent with Patient: Total time spent is greater than 50% in coordination of care (as documented) at patient's floor/unit and/or counseling patient: Coding Level of Care Code 85519 IN/OBS CONSULT LVL 3,45M Diagnoses Weakness R53.1
--- NOTE | 2024-09-03 16:10 | Electrocardiogram Report ---
Test Reason : Blood Pressure : */* mmHG Vent. Rate : 63 BPM Atrial Rate : * BPM P-R Int : * ms QRS Dur : 86 ms QT Int : 470 ms P-R-T Axes : * 35 79 degrees QTcB Int : 480 ms Probable Sinus rhythm with sinus arrhythmia Premature atrial complexes Nonspecific ST and T wave abnormality Prolonged QT Abnormal ECG When compared with ECG of 26-May-2024 09:28, No significant change Confirmed by Keo Nugent ([id number]) on 09/03/2024 4:10:38 PM Referred By: REFERRED SELF Confirmed By: Keo Nugent
--- NOTE | 2024-09-03 16:16 | Orthopedic Consultation ---
Date of Service September 03, 2024 Assessment & Plan (1) Cervical stenosis of spinal canal: (2) Lumbar stenosis with neurogenic claudication: (3) Cervical spondylosis: (4) Cervical cord myelomalacia: (5) S/P cervical spinal fusion: History of Present Illness Reason for Consultation: Weakness in all extremities Attending Physician: Star Colbert Patient is a pleasant 88-year-old gentleman who was admitted through the emergency department yesterday for advancing weakness of all extremities. He reports he was undergoing an outpatient workup, over the last 2 weeks he has gone from ambulating to minimal ambulation with a walker. Also reports numbness into the bilateral upper extremities as well as some weakness in the proximal muscle groups. He reports he used to lift weights with his arms on a regular basis for conditioning, now instead of doing his usual 50 repetitions he is down to about 2. Harman catheter has been placed during this hospital stay for urinary retention, he does have a history of BPH that he reports as well as medical record review. He reported normal sensation with insertion of the catheter, he does not have any saddle anesthesia. He has strength in all 4 extremities however diminished, reports current bilateral upper extremity numbness mostly in the hands. Reports he has been dropping things recently. Normal bowel control. Also has a complex right hip surgery history which has led to chronic right groin pain with limited mobility of his right hip flexion. He also reports remote history back in 2000 of anterior cervical discectomy and fusion using allograft for decompression of his spinal cord. Review of systems: Bilateral upper and lower extremity weakness Physical exam: Constitutional: Well developed, appears stated age Psych: patient is coherent and answers questions appropriately, normal affect Eye: Normal gaze, no redness to sclera, pupils round and equal Pulm: Normal respiratory effort, no wheezing Cardiovascular: no significant peripheral edema, 2+ radial pulses Skin shows no rashes, lesions 4/5 muscle strength with testing of wrist extensors, triceps, finger flexion, and hand intrinsics and 3/5 strength in bilateral deltoids Sensation intact to light touch in the C5-T1 dermatomes bilaterally with the exception of bilateral hand numbness and nondermatomal fashion 2+ reflexes at biceps, triceps, and brachioradialis bilaterally Negative Roberts sign bilaterally Lower extremity exam reveals 5 out of 5 strength in the left lower extremity and hip flexor, quadriceps, tibialis anterior, gastrocsoleus and EHL. Right lower extremity evaluation of strength altered given chronic right hip pain and surgeries, limited hip flexion due to severe pain. Otherwise quadriceps tibialis anterior gastrocsoleus and EHL have at least 4 out of 5 strength No saddle anesthesia, maintained sensation L2-S1. Imaging: MRI of the lumbar spine was available for review today and interpreted personally. L2-3 disc herniation eccentric to the right with compression of the traversing L3 nerve root. Moderate to severe bilateral lateral recess stenosis at L3-4 L4-5. Varying degrees of neuroforaminal stenosis throughout the lumbar spine. MRI of the cervical spine was available for review today and interpreted personally. Prior surgical decompression at C4-5, evidence of myelomalacia of the cervical cord at the C4-5 level however it is well decompressed with no residual stenosis. Moderate central canal stenosis at C2-3 and C3-4 due to disc bulge, ligamentous hypertrophy as well as mild spondylolisthesis of C3 on C4. Moderate canal stenosis C4-5 C5-6, no other areas of cord signal change other than from his previous surgery. Almost every level shows moderate to severe foraminal stenosis bilaterally. Most concerning is above the area formally imaged on the MRI and only visible on axial is severe stenosis behind the odontoid with no CSF visible around the spinal cord at the craniocervical junction, or any him appears to sit quite low on the C1 vertebra. Assessment: 88-year-old gentleman with cervical stenosis, cervical myelopathy, multiple extremity weakness lumbar disc herniation Plan: I discussed the imaging findings with the patient and his family who was present in the room. Concerned that the majority of his symptoms would be coming from his upper cervical spine behind the odontoid. This would likely be an occipital to cervical decompression and stabilization which is a procedure I explained we do not perform here at this hospital. I explained that I would recommend likely transfer to [facility] for evaluation to see if a felt surgical intervention would be warranted for the compression. At this point he is grossly neurologically intact, I discussed with the hospitalist that I feel transfer to [facility] or another tertiary care center where neurosurgery is available would be in the patient's best interest as this is a procedure I do not perform. Possible varying degrees of hip pain to the right lower extremity could certainly be from his lumbar disc herniation however he describes the right hip pain as chronic following a hip procedure which required multiple revisions. At this point he has no saddle anesthesia and left lower extremity strength is normal. Allergies Allergy/AdvReac Type Severity Reaction Status Date / Time Penicillins Allergy Unknown Generalized Verified 08/22/24 13:37 and facial swelling shellfish derived Allergy Unknown Generalized Verified 08/22/24 13:37 and facial swelling Sulfa (Sulfonamide Allergy Unknown Generalized Verified 08/22/24 13:37 Antibiotics) and facial swelling sitagliptin [From Octuvia] AdvReac Severe Diarrhea Verified 08/22/24 13:37 Home Medications Medication Instructions Recorded Confirmed Type niacin 500 mg tablet 500 mg PO QAM 12/24/21 08/22/24 History nitroglycerin 0.4 mg sublingual 0.4 mg sublingual Q5M PRN chest 11/25/22 08/22/24 Rx tablet pain #25 tabs cholecalciferol (vitamin D3) 50 5,000 unit PO QAM 11/26/22 08/22/24 History mcg (2,000 unit) capsule ferrous sulfate 27 mg iron tablet 27 mg PO QAM 01/20/23 08/22/24 History metoprolol tartrate 25 mg tablet 12.5 mg (1/2 x 25 mg) PO BID #30 07/04/23 08/22/24 Rx tabs glyburide 1.25 mg tablet 1.25 mg PO BID 11/08/23 08/22/24 History rosuvastatin 10 mg tablet 10 mg PO HS #90 tabs 03/15/24 08/22/24 Rx amiodarone 200 mg tablet 200 mg PO DAILY #90 tabs 05/21/24 08/22/24 Rx amlodipine 10 mg tablet 10 mg PO DAILY #90 tabs 06/12/24 08/22/24 Rx memantine 10 mg tablet 10 mg PO HS #90 tabs 06/12/24 08/22/24 Rx levothyroxine 100 mcg tablet 100 mcg PO DAILY #90 tabs 08/09/24 08/22/24 Rx (Synthroid) apixaban 2.5 mg tablet 2.5 mg PO BID #180 tabs 08/20/24 08/22/24 Rx Past Med/Surg History Problem List (Updated 09/03/24 @ 16:16 by Jigar Jeong MD) S/P cervical spinal fusion Cervical cord myelomalacia Cervical spondylosis Lumbar stenosis with neurogenic claudication Cervical stenosis of spinal canal Weakness Acute urinary retention (Acute) Right leg weakness (Acute) Diabetic ulcer of right foot (Acute) Diabetic ulcer of left foot associated with diabetes mellitus due to underlying condition, limited to breakdown of skin (Acute) Anemia (Acute) Hypothyroidism Aortic stenosis Echo 04/2023: Moderate aortic stenosis (TK 1.1 cm, MG 19.9 mmHg) Diabetes type 2, controlled HTN (hypertension) Dyslipidemia CAD (coronary artery disease) s/p CABG x3 (1994) Atrial flutter (Acute) Personal history of diabetic foot ulcer Diabetic peripheral neuropathy associated with type 2 diabetes mellitus (Chronic) PAD (peripheral artery disease) (Chronic) s/p right SFA angioplasty Enlarged prostate without lower urinary tract symptoms (luts) (Chronic) Retention of urine, unspecified (Chronic) Tricuspid regurgitation Nocturia Memory change Medical History (Updated 09/03/24 @ 16:16 by Jigar Jeong MD) Acute kidney injury superimposed on stage 3a chronic kidney disease Nephrolithiasis Hx of non-ST elevation myocardial infarction (NSTEMI) 11/2022 Heart murmur Mild pulmonary hypertension Echo 04/2023: Mild pulmonary hypertension. Estimated RVSP 41 mmHg. Dementia Noted in records, unsure if official diagnosis Anemia Chronic, baseline 11-13 range per chart review CKD (chronic kidney disease), stage III Surgical History (Updated 09/03/24 @ 16:16 by Jigar Jeong MD) History of coronary artery bypass graft x 3 S/P closed reduction of dislocated total hip prosthesis History of anesthesia reaction Confusion with hip surgery History of total left hip arthroplasty History of cardioversion x3 History of incision and drainage Right heel I&D, antibiotic beads: 04/06/19: SAB x 1 at L3/L4 at [facility] Difficult airway for intubation Right ELLEN (03/24/17): Elective Glidescope #4 due to limited ROM, ETT #7.5, HiLo Straight, Grade 2 View with Large Epiglottis (no specific indication why SAB not used) History of hip surgery x2 for dislocation right (s/p right ELLEN) History of total right hip arthroplasty History of colonoscopy History of repair of left rotator cuff History of fracture Collar bone > surgical repair History of tonsillectomy History of hernia surgery Right inguinal History of appendectomy History of vascular surgery right heel vascular procedure (Dr. Barbour) History of neck surgery C4-5 "cadaver bone" "Limited ROM" History of cardiac cath 1994 > subsequent CABG x3 Hx of CABG (~1994) CABG x 3 (1994) Family History Mother Alzheimer disease Father Arthritis Denies family history of Ovarian cancer Prostate cancer Myocardial infarction Breast cancer Colorectal cancer Social History (Updated 08/14/24 @ 14:13 by RAFIQ Aden) Smoking Status: Never smoker Tobacco Type: Cigarettes Age Started Using Tobacco: 17; Age Quit Using Tobacco: 24; packs per day: 1; Second Hand Exposure: No; Do You Dip or Chew Tobacco: No; Hx Alcohol Use: No Hx Substance Use: No Preferred Language: Nepali Communication Ability: Effective Communication Ability Comment: pt currently doing PT / (HIPPA) does phone interview. Pt helps. 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 Physical Exam . Results & Data Results & Data Laboratory Results . Diagnostic Findings . PG Care Time/CCT Total # of Minutes Spent Total Time Spent with Patient: Total time spent is greater than 50% in coordination of care (as documented) at patient's floor/unit and/or counseling patient: [place] [address] IN/OBS CONSULT LVL 4,60M Patient Type New History Expanded Problem Focused Exam Expanded Problem Focused Medical Decision Making Moderate Complexity Diagnoses Cervical stenosis of spinal canal M48.02 Lumbar stenosis with neurogenic claudication M48.062 Cervical spondylosis M47.812 Cervical cord myelomalacia G95.89 S/P cervical spinal fusion Z98.1
--- NOTE | 2024-09-03 22:10 | Hospitalist Progress Note ---
Date of Service September 03, 2024 Assessment & Plan (1) Weakness: Plan: 88-year-old gentleman with cervical stenosis, cervical myelopathy, multiple extremity weakness lumbar disc herniation This is an 88-year-old gentleman with past medical history of hypothyroidism, type 2 diabetes, hypertension, dyslipidemia, CAD, PAD who presented to the emergency room on 09/02/2024 with a chief complaint of lower extremity weakness. Patient also with upper extremity weakness as well. CBC: hgb 12.9 which is within baseline, no leukocytosis BMP: Creatinine 1.73, appears within baseline. electrolytes stable. Troponin 44 --> 43 likely demand due to absence of CP and no signs of ischemia on EKG TSH WNL Urinalysis negative. Respiratory biofire negative Lumbar spine CT: multilevel mod-severe degenerative changes including foraminal and canal stenosis. no acute osseous abnormality Head CT: cerebral atrophy. no acute changes CXR: cardiomegaly w/o acute process Cervical Spine CT: stable severe degenerative changes including multilevel foraminal and canal stenosis. Obtain Lumbar and Cervical spine MRI. Appreciate input from Neuro and ortho spine. Input from ortho spine. MRI of the cervical spine was available for review today and interpreted pers onally. Prior surgical decompression at C4-5, evidence of myelomalacia of the cervical cord at the C4-5 level however it is well decompressed with no residual stenosis. Moderate central canal stenosis at C2-3 and C3-4 due to disc bulge, ligamentous hypertrophy as well as mild spondylolisthesis of C3 on C4. Moderate canal stenosis C4-5 C5-6, no other areas of cord signal change other than from h is previous surgery. Almost every level shows moderate to severe foraminal stenosis bilaterally. Most concerning is above the area formally imaged on the MRI and only visible on axial is severe stenosis behind the odontoid with no CSF visible around the spinal cord at the craniocervical junction, or any him appears to sit quite low on the C1 vertebra. Plan: I discussed the imaging findings with the patient and his family who was present in the room. Concerned that the majority of his symptoms would be coming from his upper cervical spine behind the odontoid. This would likely be an occipital to cervical decompression and stabilization which is a procedure I explained we do not perform here at this hospital. Called [facility] on waiting list for transfer. PT/OT consults, appreciate recommendations (2) Type 2 diabetes mellitus: Plan: Outpatient regimen: Glyburide - hold while inpatient Last A1c 08/09/2024: 7% Novolog SSI while inpatient Goal: 110-170mg/dL CF: 20 Follows with wound care outpatient for diabetic foot ulcer. Last seen 08/22/2024 difficulty healing due to PAD.- Last seen by Dr. Barbour in 2022 dresses wound w/ [facility] outpatient consult wound nurse. (3) Enlarged prostate without lower urinary tract symptoms (luts): Plan: Urinary incontinence episode in ED Bladder scan retain 300cc in ED Bladder scan q shift Added Flomax HS Plan Chronic conditions A fib/flutter: amiodarone, Eliquis, metoprolol CAD: statin Hypothyroidism: levothyroxine HTN: amlodipine memory impairment: memantine DVT prophylaxis: home Eliquis Disposition: med/surg Diet: heart healthy, carb consistent Code status: NPO Updated at bedside w/ admission plans 09/02 Admission and Anticipated Discharge Date Admission Date: September 02, 2024 Subjective 88 yo male reports no change. Review of Systems Review of Systems: All systems reviewed & are unremarkable except as noted in HPI & below Physical Exam Constitutional: WD/WN, vitals as above Eyes: PERRL, conjunctivae normal, anicteric sclerae Respiratory: normal respiratory effort, lungs clear to auscultation Cardiovascular: irregularly irregular. no LE edema. Erythema and warmth to palpation of right anterior menezes. Psychiatric: A+Ox3, euthymic affect Results & Data Results & Data Vital Signs (Past 12 Hours) Vital Signs Temp Pulse Pulse Resp BP Pulse Ox O2 Del Method 09/03/24 20:19 37.1 C 72 18 147/81 H 91 Room Air 09/03/24 11:14 36.5 C 62 63 18 118/68 96 Room Air PG Care Time/CCT Total # of Minutes Spent Total Time Spent with Patient: Total time spent is greater than 50% in coordination of care (as documented) at patient's floor/unit and/or counseling patient: Prolonged Care Time Prolonged Care Time: Yes 16:00 to 16:30 17:30 to 18:05 Coding Level of Care Code 75842 SUB INP/OBS CARE 3/50MIN Diagnoses Weakness R53.1 Type 2 diabetes mellitus with other circulatory complication, without long-term current use of insulin E11.59 Diabetes mellitus complication detail: with other circulatory complications Diabetes mellitus complication status: with circulatory complication Diabetes mellitus [employer] insulin use: without [employer] use Enlarged prostate without lower urinary tract symptoms (luts) N40.0 Additional Codes Prolonged Care Time - Prolonged Care Time: Yes ([id number]) Time Spent (min) 65 (2) Type 2 diabetes mellitus Diabetes mellitus complication detail: with other circulatory complications Diabetes mellitus complication status: with circulatory complication Diabetes mellitus [facility] insulin use: without [employer] use Qualified Code(s): E11.59 - Type 2 diabetes mellitus with other circulatory complications
[2024-09-04 07:09] LABS: Hematocrit (blood only) 37.9 % (42.0-52.0); Hemoglobin 12.2 g/dl (14.0-18.0); Mean Corpuscular Hemoglobin 27.3 pg (25.0-34.0); Mean Corpuscular Hgb Conc 32.2 g/dL (32.0-36.0); Mean Corpuscular Volume 84.8 fL (80.0-100.0); Mean Platelet Volume 10.8 fL (9.4-12.4); Platelet Count 199 K/uL (130-400); RDW Coefficient of Variation 16.2 % (11.5-14.5); RDW Standard Deviation 49.6 fL (36.4-46.3); Red Blood Count 4.47 M/uL (4.70-6.10); White Blood Count 7.65 K/ul (4.8-10.8)
[2024-09-04 07:20] LABS: BUN Creatinine Ratio 17.6 (10-20); Calcium 9.2 mg/dl (8.6-10.3); Creatinine Clr Calc Pharmacy 24.7 ml/min; Potassium 4.2 mmol/L (3.5-5.1)
[2024-09-04 07:28] VITALS: BP 155/77; RESP 16; TEMP 98.2; O2SAT 92
--- NOTE | 2024-09-04 11:53 | Hospitalist Progress Note ---
Date of Service September 04, 2024 Assessment & Plan Admission and Anticipated Discharge Date Admission Date: September 02, 2024 Results & Data Results & Data Vital Signs (Past 12 Hours) Vital Signs Temp Pulse Resp BP Pulse Ox O2 Del Method 09/04/24 07:27 36.8 C 76 16 155/77 H 92 Room Air PG Care Time/CCT Total # of Minutes Spent Total Time Spent with Patient: Total time spent is greater than 50% in coordination of care (as documented) at patient's floor/unit and/or counseling patient: Coding
[2024-09-04 12:57] VITALS: PULSE 63
--- NOTE | 2024-09-04 13:25 | Orthopedic Progress Note ---
Date of Service September 04, 2024 Assessment & Plan (1) Cervical cord myelomalacia: (2) Cervical spondylosis: (3) Cervical stenosis of spinal canal: Patient is neurologically stable from yesterday, demonstrates signs of cervical myelopathy. I again discussed with the patient today that he is pending transfe r to an institution for neurosurgical evaluation. He has high cervical stenosis at the craniocervical junction which is not a condition that I or any of the other spine surgeons here at [facility] treat. He has not had any neurologic decline over the last 24 hours. I spoke with Dr. Henry from [facility] neurosurgery, patient has been accepted for transfer and is expected to transfer later today. (4) Lumbar stenosis with neurogenic claudication: Subjective HPI: Patient remains neurologically stable overnight, when I saw him this morning he is attempting to eat his breakfast however requiring assistance due to the numbness in his hands and decreased fine motor skills. No neurologic changes overnight, he remains at his baseline that he has been out for the last several days. Reports the worst of the decline happened over the last several weeks. Review of Systems All systems reviewed & are unremarkable except as noted in HPI & below. Physical Exam Constitutional: Well developed, appears stated age Psych: patient is coherent and answers questions appropriately, normal affect Eye: Normal gaze, no redness to sclera, pupils round and equal Pulm: Normal respiratory effort, no wheezing Cardiovascular: no significant peripheral edema, 2+ radial pulses Skin shows no rashes, lesions 4/5 muscle strength with testing of wrist extensors, triceps, finger flexion, and hand intrinsics and 3/5 strength in bilateral deltoids Sensation intact to light touch in the C5-T1 dermatomes bilaterally with the exception of bilateral hand numbness and nondermatomal fashion 2+ reflexes at biceps, triceps, and brachioradialis bilaterally Negative Roberts sign bilaterally Lower extremity exam reveals 5 out of 5 strength in the left lower extremity and hip flexor, quadriceps, tibialis anterior, gastrocsoleus and EHL. Right lower extremity evaluation of strength altered given chronic right hip pain and surgeries, limited hip flexion due to severe pain. Otherwise quadriceps tibialis anterior gastrocsoleus and EHL have at least 4 out of 5 strength No saddle anesthesia, maintained sensation L2-S1. Results & Data Results & Data Laboratory Results . Diagnostic Findings . 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
--- NOTE | 2024-09-04 13:37 | Discharge Summary ---
Discharge Summary Date of Service September 04, 2024 Principal Dx & Hospital Course #1 = Principal Diagnosis (1) Cervical stenosis of spinal canal: (2) Cervical spondylosis: (3) Cervical cord myelomalacia: (4) S/P cervical spinal fusion: (5) Lumbar stenosis with neurogenic claudication: (6) Weakness: (7) Right leg weakness: (8) Hypothyroidism: (9) Aortic stenosis: (10) Diabetes type 2, controlled: (11) HTN (hypertension): (12) Dyslipidemia: (13) Atrial flutter: (14) PAD (peripheral artery disease): (15) Enlarged prostate without lower urinary tract symptoms (luts): (16) Tricuspid regurgitation: (17) CKD (chronic kidney disease), stage III: Plan 88-year-old male with past medical history of coronary artery disease status post CABG, aortic stenosis, tricuspid regurgitation, atrial flutter status post cardioversion on anticoagulation with apixaban, hypothyroidism, essential hypertension, history of cervical spinal fusion presented to the emergency department with advancing weakness of all his extremities. Patient had CT scan and an MRI which showed cervical spinal stenosis at the craniocervical junction which is not a condition that spine surgeons here at [facility] treat. Orthopedic surgeon Dr. Jigar Jeong spoke with Dr. Chai Henry neurosurgeon at [facility] who has accepted the patient in transfer. Patient also found to have lumbar stenosis with neurogenic claudication on MRI Patient does not have any bladder or bowel dysfunction He denies any saddle anesthesia His main complaints are numbness and tingling in both his upper extremities and weakness in his lower extremities. He currently denies any pain With respect to his cardiac issues: Patient to continue with amiodarone and apixaban and metoprolol for his atrial flutter. Once he is evaluated by neurosurgery, defer it up to neurosurgery to stop apixaban if patient is going to require surgery. Patient can follow-up with his outpatient outpatient scheduler Dr. Keo Nugent upon discharge from [facility] Patient to continue with amlodipine: Avoid severe drops in his blood pressure given his moderate aortic stenosis Continue with levothyroxine for hypothyroidism Patient has CKD stage III and his baseline is around 2.0. Patient is currently at his baseline Avoid nephrotoxic agents including NSAIDs Patient stable for transfer to [facility]: I have gone over the care plan with the patient and his at the bedside and they are in agreement with transfer. Further plan based on neurosurgery team at [facility] This discharge took greater than 30 minutes to coordinate Admission HPI Per Admitting Provider This is an 88-year-old gentleman with past medical history of hypothyroidism, type 2 diabetes, hypertension, dyslipidemia, CAD, PAD who presented to the emergency room on 09/02/2024 with a chief complaint of lower extremity weakness. The patient was seen and examined with his at bedside. Patient reports that over the last 7 to 10 days he has noticed progressive weakness in his lower extremities. States that he typically ambulates with a walker and now cannot walk. States that his right leg is worse than his left leg. He denies any chest pain or shortness of breath. He does admit to low back pain at time of encounter. Patient does routinely follow with cardiology outpatient. He has a history of PAD with claudication has had a right SFA angioplasty in the past with Dr. Barbour. He denied any abdominal pain, nausea, vomiting. Denied any fevers or chills. Patient admits that he does experience lower extremity edema occasionally. He did have an episode of urinary incontinence and does feel an urge to urinate however does have a history of BPH. Denies any abnormal changes in his bowel habits. Patient also undergoing outpatient workup regarding his cervical spine. States he is to get an MRI on this outpatient. Patient states that he has also felt tingling sensation in his b/l upper extremities and has had difficulty holding on to objects such as a coffee mug. Discharge Exam General: No acute distress Psych: Awake and alert, oriented to place and person: Patient hard of hearing HEENT: Anicteric sclera, moist oral mucosa CVS: irregular rate and rhythm, systolic murmur audible Lungs: Bilateral air entry, no wheezing noted Abdomen: Soft, nontender, no rebound, no guarding Ext: No lower extremity edema, no calf tenderness Neuro: Strength is 4 out of 5 in all 4 extremities Discharge Plan Discharge Items Patient Disposition: Transfer Acute Care Hospital Reason For Visit: WEAKNESS Discharge Diagnosis: #Cervical stenosis of spinal canal # Cervical spondylosis #Cervical cord myelomalacia #S/P cervical spinal fusion #Lumbar stenosis with neurogenic claudication #Coronary artery disease status post CABG #History of atrial flutter status post cardioversion on anticoagulation #Peripheral artery disease with claudication #Essential hypertension #Hyperlipidemia #Aortic stenosis: Moderate #Tricuspid regurgitation #Hypothyroidism Condition on Discharge: Fair Activity: As commented below Activity Comment: As tolerated with assistance only Non-emergency contact: Primary Care Provider Call non-emergency contact if: your symptoms worsen Follow-up/Referrals: Munir Andino III, CRNP [Primary Care Provider] - Diet: Carb Consistent or DM2 and Heart Healthy Addtl Attending Provider Instructions: Patient is being transferred to [facility] under care of Dr. Chai Henry Pending Studies at Discharge: No Stand-Alone Forms: My [facility] Skilled Items Patient informed of condition?: Yes DNR: Yes Discharge Level of Care: Other Communicable Disease: No Discharge Prognosis: Stable Lines: None Urinary Catheter: No Medications and DC Order Prescriptions: New tamsulosin 0.4 mg Capsule 0.4 mg PO HS Qty: 5 0RF Continued niacin 500 mg tablet 500 mg PO QAM cholecalciferol (vitamin D3) 50 mcg (2,000 unit) capsule 5,000 unit PO QAM Patient Comments: states the bottle says 125 mcg (5,000) rosuvastatin 10 mg tablet 10 mg PO HS Qty: 90 1RF amiodarone 200 mg tablet 200 mg PO DAILY Qty: 90 3RF levothyroxine [Synthroid] 100 mcg tablet 100 mcg PO DAILY Qty: 90 1RF apixaban 2.5 mg tablet 2.5 mg PO BID Qty: 180 3RF Hold Instructions: Resume on 04/23/23. Restart on 04/23/23 as long as there is no further bright red blood in your urine. metoprolol tartrate 25 mg tablet 12.5 mg PO BID Qty: 30 5RF memantine 10 mg tablet 10 mg PO HS Qty: 90 3RF amlodipine 10 mg tablet 10 mg PO DAILY Qty: 90 3RF ferrous sulfate 27 mg iron Tablet 27 mg PO QAM Patient Comments: not too much lately/trouble with constipation nitroglycerin 0.4 mg tablet, sublingual 0.4 mg sublingual Q5M PRN (Reason: chest pain) Qty: 25 0RF Held glyburide 1.25 mg tablet 1.25 mg PO BID Hold Instructions: Resume on 09/11/24. to be reviewed on discharge from [facility] Discharge Orders: Discharge Order (Routine); Ordered 09/04/24 Ordered By: Angelo Lennon Admission Data Admit Date/Time: 09/02/24 17:02 Attending Provider: Angelo Lennon Admit Provider: Star Colbert Primary Care Provider: Munir Andino III Other Providers: Star Colbert; Matthew Miguel; Naldo Serra; Concepcion Reyez; Zari Reynoso; Irais Burton; Chai Steele; Mason Toledo; Patricio Starks; Gómez Vidales; Bina Hinojosa; Sebastián Nava; Jigar Jeong Other Interventions: Discharge Summary Assessment (RN) Last Done: 09/04/24 12:55 Hospital Stay Data Consultations 09/02/24 16:35 ED Decision to Admit Stat 09/03/24 07:39 Consult Neurology Routine 09/03/24 14:17 Consult Orthopedic Spine Surgery Routine Diagnostic Imagining Performed Laboratory Results - last 48 hr 09/02/24 09/02/24 09/02/24 14:10 16:32 19:52 WBC RBC Hgb Hct MCV MCH MCHC RDW Std Deviation RDW Coeff of Cyndi Plt Count MPV Sodium Potassium Chloride Carbon Dioxide Anion Gap BUN Creatinine Est Cr Clr Drug Dosing eGFR BUN/Creatinine Ratio Glucose POC Glucose 75 Calcium Troponin I High Sens 43.0 H Vitamin B12 25-OH Vitamin D Total Folate Urine Color Yellow Urine Appearance Clear Urine pH 5.5 Ur Specific Rosamond 1.019 Urine Protein Trace H Urine Glucose (UA) Negative Urine Ketones Negative Urine Blood Negative Urine Nitrite Negative Urine Bilirubin Negative Urine Urobilinogen Negative Ur Leukocyte Esterase Negative Urine WBC (Auto) 0-5 Urine RBC (Auto) 0-2 U Hyaline Cast (Auto) 0-2 U Epithel Cells (Auto) 0-2 Urine Bacteria (Auto) None Seen 09/02/24 09/03/24 09/03/24 21:17 05:39 07:49 WBC 7.67 RBC 4.48 L Hgb 12.2 L Hct 38.3 L MCV 85.5 MCH 27.2 MCHC 31.9 L RDW Std Deviation 49.2 H RDW Coeff of Cyndi 16.1 H Plt Count 197 MPV 10.9 Sodium 144 Potassium 4.3 Chloride 111 H Carbon Dioxide 23 Anion Gap 10 BUN 28 H Creatinine 1.74 H Est Cr Clr Drug Dosing 27.4 eGFR 37.01 BUN/Creatinine Ratio 16.1 Glucose 90 POC Glucose 152 H 89 Calcium 9.4 Troponin I High Sens Vitamin B12 679 25-OH Vitamin D Total 104.2 H Folate 17.79 Urine Color Urine Appearance Urine pH Ur Specific Rosamond Urine Protein Urine Glucose (UA) Urine Ketones Urine Blood Urine Nitrite Urine Bilirubin Urine Urobilinogen Ur Leukocyte Esterase Urine WBC (Auto) Urine RBC (Auto) U Hyaline Cast (Auto) U Epithel Cells (Auto) Urine Bacteria (Auto) 09/03/24 09/03/24 09/03/24 11:49 17:06 20:28 WBC RBC Hgb Hct MCV MCH MCHC RDW Std Deviation RDW Coeff of Cyndi Plt Count MPV Sodium Potassium Chloride Carbon Dioxide Anion Gap BUN Creatinine Est Cr Clr Drug Dosing eGFR BUN/Creatinine Ratio Glucose POC Glucose 148 H 102 H 106 H Calcium Troponin I High Sens Vitamin B12 25-OH Vitamin D Total Folate Urine Color Urine Appearance Urine pH Ur Specific Rosamond Urine Protein Urine Glucose (UA) Urine Ketones Urine Blood Urine Nitrite Urine Bilirubin Urine Urobilinogen Ur Leukocyte Esterase Urine WBC (Auto) Urine RBC (Auto) U Hyaline Cast (Auto) U Epithel Cells (Auto) Urine Bacteria (Auto) 09/04/24 09/04/24 09/04/24 06:20 07:33 11:30 WBC 7.65 RBC 4.47 L Hgb 12.2 L Hct 37.9 L MCV 84.8 MCH 27.3 MCHC 32.2 RDW Std Deviation 49.6 H RDW Coeff of Cyndi 16.2 H Plt Count 199 MPV 10.8 Sodium 142 Potassium 4.2 Chloride 108 H Carbon Dioxide 24 Anion Gap 10 BUN 34 H Creatinine 1.93 H Est Cr Clr Drug Dosing 24.7 eGFR 32.68 BUN/Creatinine Ratio 17.6 Glucose 105 H POC Glucose 116 H 133 H Calcium 9.2 Troponin I High Sens Vitamin B12 25-OH Vitamin D Total Folate Urine Color Urine Appearance Urine pH Ur Specific Rosamond Urine Protein Urine Glucose (UA) Urine Ketones Urine Blood Urine Nitrite Urine Bilirubin Urine Urobilinogen Ur Leukocyte Esterase Urine WBC (Auto) Urine RBC (Auto) U Hyaline Cast (Auto) U Epithel Cells (Auto) Urine Bacteria (Auto) 09/02/24 12:23 CT cervical spine wo con Stat CT head/brain wo con Stat 09/02/24 14:43 CT lumbar spine wo con Stat 09/02/24 17:04 US venous doppler LE RT Stat 09/02/24 18:00 MR cervical spine wo/w con Routine MR lumbar spine wo/w con Urgent Cervical Spine CT 09/02/24 12:23 EXAM: CT Cervical Spine Without Intravenous Contrast INDICATION: Right-sided weakness TECHNIQUE: Axial computed tomography images of the cervical spine without intravenous contrast. Sagittal and coronal reformatted images were created and reviewed. This CT exam was performed using one or more of the following dose reduction techniques: automated exposure control, adjustment of the mA and/or kV according to patient size, and/or use of iterative reconstruction technique. COMPARISON: 07/11/2023 FINDINGS: Limitations: None. Vertebrae: The bones are demineralized with stable diffuse moderate to severe facet arthrosis, spondylosis and spo uncal spurring. No acute fracture. No traumatic subluxation. There is stable degenerative grade 1 anterolisthesis C3 on C4. Discs/spinal canal/neural foramina: Stable extensive degenerative moderate to severe changes of the intervertebral discs. There is multilevel mild to moderate canal and foraminal stenosis most notable at C3-C4 asymmetric on the left. There is extensive ligamentous ossification at C1-C2 with canal stenosis stable. Soft tissues: No significant abnormality noted. Lung apices: No significant abnormality noted. IMPRESSION: Stable severe degenerative changes including multilevel foraminal and canal stenosis. ACT 112: Negative or not required by law. Electronically signed by Alix Sarabia 09-02-2024 2:47 PM Chest X-Ray 09/02/24 12:23 XR chest 1V portable HISTORY: 88 years-old Male weakness COMPARISON: 05/26/2024 TECHNIQUE: AP view of the chest FINDINGS: Cardiac silhouette is enlarged. Median sternotomy with mediastinal surgical clips and mild chronic interstitial coarsening. No pneumothorax, pleural effusion or overt pulmonary edema. Degenerative changes of the shoulders. IMPRESSION: Cardiomegaly without acute process. ACT 112: Negative or not required by law. The above report was generated using voice recognition software. It may contain grammatical, syntax or spelling errors. Electronically signed by: Sebastián Leonard M.D. 09/02/2024 1:[address] 09/02/24 12:23 EXAM: CT Head Without Intravenous Contrast INDICATION: Right-sided weakness TECHNIQUE: Axial computed tomography images of the head/brain without intravenous contrast. Sagittal and/or coronal reformats are provided. Sagittal and coronal reformatted images were created and reviewed. This CT exam was performed using one or more of the following dose reduction techniques: automated exposure control, adjustment of the mA and/or kV according to patient size, and/or use of iterative reconstruction technique. COMPARISON: 07/11/2023 FINDINGS: Limitations: None. Brain and extra-axial spaces: There is age appropriate cortical atrophy and chronic ischemic periventricular white matter hypodensity. No acute infarct, hemorrhage or mass noted. Bones/joints: No acute changes. Soft tissues: No significant abnormality noted. Vasculature: Dense atherosclerotic calcification present. Sinuses: No layering fluid in the visualized portions of the paranasal sinuses. Mastoid air cells: No mastoid effusion. Orbits: No significant abnormality noted. IMPRESSION: Cerebral atrophy. No acute changes. ACT 112: Negative or not required by law. Electronically signed by Alix Sarabia 09-02-2024 2:[address] 09/02/24 14:43 EXAM: CT Lumbar Spine Without Intravenous Contrast INDICATION: Bilateral lower extremity weakness. Urinary incontinence. TECHNIQUE: Axial computed tomography images of the lumbar spine without intravenous contrast. Sagittal and coronal reformatted images were created and reviewed. This CT exam was performed using one or more of the following dose reduction techniques: automated exposure control, adjustment of the mA and/or kV according to patient size, and/or use of iterative reconstruction technique. COMPARISON: No relevant prior studies available. FINDINGS: Limitations: None. Vertebrae: The bones are generally demineralized. There is moderate facet hypertrophic change at all levels slightly greater on the left. There is moderate to severe spondylosis and mild to moderate uncal spurring L2 to the proximal sacrum. No fracture or subluxation identified. Sacrum/coccyx: No significant abnormality noted. No acute change noted. Discs/spinal canal/neural foramina: There is diffuse moderate to space narrowing and moderate associated disc calcification at L3-L4 and L4-L5. There is mild ventral canal stenosis T12-L1. There is moderate to severe canal and foraminal stenosis L1-L2 with contributing ligamentous and facet hypertrophy. There is a asymmetric disc herniation in the right lateral recess at the level of the mid L2-L3 slightly indenting the right anterolateral thecal sac and causing severe stenosis of the right foraminal origin. There is generalized osteophyte disc complex along with facet and ligamentous hypertrophy causing severe canal and foraminal stenosis at the level of the disc. Moderate canal and foraminal stenosis L3-L4. Severe changes mostly attributing to posterior osteophyte disc complex L4-L5. There is mild ventral stenosis L5-S1. There is moderate to severe foraminal stenosis at L4-L5. Soft tissues: No significant abnormality noted. Vasculature: Atherosclerotic calcification of the aorta and branches. No aneurysm. Kidneys and ureters: Calcifications noted in the central aspect of the left kidney are at least partially renovascular. Nonobstructing stone not excluded. No hydronephrosis. IMPRESSION: 1. Multilevel moderate to severe degenerative changes including foraminal and canal stenosis. No acute osseous abnormality. 2. Calcifications of the left kidney are at least partly renovascular. Nonobstructing stone not excluded. ACT 112: Negative or not required by law. Electronically signed by Alix Sarabia 09-02-2024 3:48 PM Venous Doppler Study 09/02/24 17:04 EXAM: US Duplex Right Lower Extremity Veins INDICATION: Pain and erythema. TECHNIQUE: Real-time duplex ultrasound scan of the right lower extremity veins integrating B-mode two-dimensional vascular structure, Doppler spectral analysis, color flow Doppler imaging and compression. COMPARISON: No relevant prior studies available. FINDINGS: Deep veins: No DVT in the visualized common femoral, femoral or popliteal veins. The veins demonstrate normal color flow, are normally compressible, with normal phasic flow and/or augmentation response. Superficial veins: No abnormality noted. No thrombus in the visualized great saphenous vein. Soft tissues: No abnormality noted. IMPRESSION: No deep venous thrombosis of the right lower extremity. ACT 112: Negative or not required by law. Electronically signed by Alix Sarabia 09-02-2024 6:48 PM Cervical Spine MRI 09/02/24 18:00 EXAM: MR cervical spine wo/w con CLINICAL HISTORY: bilateral leg weakness. worse today. right leg worse. fall [address] cervical and lumbar done 09/02. no previous MRI here injected 8cc gadavist through existing iv left arm uneventful at 2350. room 308-1. 279 images TECHNIQUE: Multisequential and multiplanar images of the cervical spine were submitted for review without and with contrast. COMPARISON: 02 September 2024. FINDINGS: Straightening of the cervical lordosis. Grade I anterolisthesis of C3 over C4 vertebra is noted without bilateral pars interarticularis fractures. The visualized paraspinal soft tissues are grossly unremarkable. Marginal and uncovertebral osteophytes, facetal arthropathy with hypertrophic changes, reduction in disc heights, endplate irregularity and sclerosis, vacuum phenomenon, disc calcifications are noted at multiple levels causing variable degree spinal canal and neural foraminal stenosis as descriobed below. Ligamentum flavum calcification is noted C4-C5 level. Supraspinous ligament calcification is noted at mid-cervical level. Patchy anterior and posterior longitudinal ligament calcification is also noted at places. Moderate thickening with calcification of the tectorial membrane, transverse atlanto ligament is noted causing severe stenosis of the cervical medullary junction. Similar significant thickening with calcification is also noted involving anterior atlantoaxial ligament. C2-C3: Diffuse disc bulge is noted causing mild spinal canal stenosis. C3-C4: Diffuse disc bulge is noted causing moderate spinal canal and right neural foraminal stenosis. Severe left neural foraminal stenosis is noted. C4-C5: Diffuse disc bulge is noted causing severe right neural foraminal and moderate spinal canal stenosis. Moderate left neural foraminal stenosis is also seen. Myelomalacia changes are noted involving the spinal cord at this level. C5-C6: Diffuse disc bulge is noted causing severe right and moderate left neural foraminal stenosis. Moderate spinal canal stenosis is also seen. C6-C7: Diffuse disc bulge is noted causing mild spinal canal and bilateral neural foraminal stenosis. C7-T1: Diffuse disc bulge is noted causing severe left neural foramina stenosis. Moderate spinal canal and right neural foraminal stenosis is also seen. IMPRESSION: 1. Grade I anterolisthesis of C3 over C4 vertebra without spondylolysis. 2. Advanced degenerative changes as described above. 3. Disc bulges at multiple levels with neural compression as described above. 4. Moderate thickening with calcification of the tectorial membrane, transverse atlantal ligament is noted causing severe stenosis of the cervical medullary junction. 5. Myelomalacia changes are noted involving the spinal cord at C4-C5 level. Electronically signed by Jakob Banegas 09-03-2024 01:33 AM Lumbar Spine MRI 09/02/24 18:00 EXAM: e+2 MR lumbar spine wo/w con CLINICAL HISTORY: bilateral leg weakness. worse today. right leg worse. fall [address] cervical and lumbar done 09/02. no previous MRI here injected 8cc gadavist through existing iv left arm uneventful at 2350. room 308-1. 163 Images TECHNIQUE: Multisequential and multiplanar images of the lumbar spine were submitted for review without and with contrast. COMPARISON: 02 September 2024. FINDINGS: Terminal lumbar segment vertebra is labeled as L5. The conus medullaris terminates at approximately L1 and demonstrates normal size and signal. Normal curvature of the spine is maintained. Alignment of the lumbar spine is normal. There is no abnormal bone marrow signal. Marginal osteophytes are noted at multiple levels. All discs appear degenerated. Reduction in the disc height is noted at all levels. L1-L2: Diffuse disc bulge is noted causing mild spinal canal, bilateral lateral recess and neural foraminal stenosis. L2-L3: Disc bulge, ligamentum flavum thickening is noted causing severe spinal canal and bilateral lateral recess stenosis. Moderate bilateral neural foraminal stenosis is also noted. Superior migration of the disc material is noted at this level on right side of the spinal canal causing further severe compression of the right traversing and exiting nerve roots. L3-L4: Diffuse disc bulge is noted causing mild spinal canal and severe bilateral lateral recess stenosis. Moderate bilateral neural foraminal stenosis is also noted. L4-L5: Diffuse disc bulge is noted causing mild spinal canal and severe bilateral lateral recess stenosis. Moderate bilateral neural foraminal stenosis is also seen. L5-S1: Diffuse disc bulge, ligamentum flavum thickening is noted causing mild spinal canal and severe bilateral lateral recess stenosis. Severe right and moderate left neural foraminal stenosis also noted. The visualized paraspinal soft tissues are grossly unremarkable. Facetal arthropathy changes are noted at multiple levels. IMPRESSION: 1. Degenerative changes. 2. Posterior disc bulges at multiple levels with neural compression as described above. 3. Superior migration of the disc material is noted at L2-L3 level on the right side causing severe compression of right traversing and exiting nerves. Electronically signed by Jakob Banegas 09-03-2024 01:40 AM Pending Results Patient Have Any Pending Studies at Discharge: No Discharge Instructions Given to Patient (Per Discharging Provider) Patient is being transferred to [facility] under care of Dr. Chai Henry Total Time Total Time Spent Total Time Spent (In Minutes): 45 Coding Level of Care Code 52237 INP/OBS DISCH >30 MIN Diagnoses Cervical stenosis of spinal canal M48.02 Cervical spondylosis M47.812 Cervical cord myelomalacia G95.89 S/P cervical spinal fusion Z98.1 Lumbar stenosis with neurogenic claudication M48.062 Weakness R53.1 Right leg weakness R29.898 Hypothyroidism E03.9 Aortic stenosis I35.0 Diabetes type 2, controlled E11.9 HTN (hypertension) I10 Dyslipidemia E78.5 Atrial flutter I48.92 PAD (peripheral artery disease) I73.9 Enlarged prostate without lower urinary tract symptoms (luts) N40.0 Tricuspid regurgitation I07.1 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
[2024-09-04] MEDS: ACETAMINOPHEN 325 MG TAB PO PRN (13:42)
== END 2024-09-04 13:56 | disposition short-term general hospital (02) | DRG 552 ==
LOC: ED 11:56 → 3E 17:02 → SUATTDRO 17:02 → 3E 18:21